=== PATIENT | female | born 1950 | race Caucasian/White ===

== ENCOUNTER 2022-10-18 13:00 | Outpatient (OUT) | payer MEDICARE, SELFPAY ==
--- NOTE | 2022-10-18 13:07 | CT_ITS ---
[address] [address] Patient Name: ALBERTINA LANE MRN: [id number] date: 1950 Sex: F Assigned Patient Location: CT Current Patient Location: Accession/Order Number: [id number] Exam Date: 10/18/2022 13:10 Report Date: 10/19/2022 06:20 At the request of: TORY BARLOW Procedure: CT lung screening low-dose EXAMINATION: CT lung screening low-dose HISTORY: History Of Tobacco Dependence Z87.891 COMPARISON: CT chest 09/23/2021 TECHNIQUE: Axial, Coronal, and Sagittal images were created without the administration of IV contrast material. Dose reduction techniques were achieved by using automated exposure control and/or adjustment of mA and/or kV according to patient size and/or use of iterative reconstruction technique. FINDINGS: LUNGS: Left upper lobe calcified granuloma. Stable 4 mm nodule versus scarring within anterior right costophrenic angle. No infiltrates or significant chronic interstitial changes. PLEURA: No mass, effusion, or pneumothorax. VASCULATURE: No abnormality. JIAN: Calcified left hilar lymph nodes. MEDIASTINUM: No mass or pathologic adenopathy. CARDIAC: No enlargement, pericardial thickening, or significant calcification. AORTA: No aneurysm or dissection. CHEST WALL: No mass or axillary adenopathy BONES: Pectus excavatum. No bone lesion or fracture. LIMITED ABDOMEN: Stable small hepatic cysts versus hemangiomas. No suspicious findings. Limited images of the upper abdomen. OTHER: Negative. CT/CT lung screening low-dose IMPRESSION: 1. Lung-RADS 2- Benign Appearance or Behavior. Nodules with a very low likelihood of becoming a clinically active cancer due to size or lack of growth. Follow-up CT Chest in 1 year. Electronically authenticated by: GUERLINE ANDREWS Date: 10/19/2022 06:20
== END 2022-10-18 13:01 | disposition home or self-care (01) ==
PROVIDERS: PCP Internal Medicine; Visit Provider Internal Medicine
DX: Z87.891 Personal history of nicotine dependence (principal)
CPT/HCPCS: 71271

== ENCOUNTER 2022-12-17 14:36 | Outpatient (OUT) | payer MEDICARE, SELFPAY ==
--- NOTE | 2022-12-17 14:45 | XR_ITS ---
The [address] [address] Patient Name: ALBERTINA LANE MRN: [id number] date: 1950 Sex: F Assigned Patient Location: [facility] Current Patient Location: Accession/Order Number: [id number] Exam Date: 12/17/2022 14:51 Report Date: 12/20/2022 07:42 At the request of: TORY BARLOW Procedure: XR ankle RT min 3V PROCEDURE: XR ankle RT min 3V COMPARISON: None. HISTORY: Sprain Of Ligament Of Right Ankle S93.491A FINDINGS: BONES:No fracture, acute abnormality, or significant arthropathy. SOFT TISSUES: Soft tissue calcifications, nonspecific. No visible soft tissue swelling. EFFUSION:None visible. OTHER: Negative. XR/XR ankle RT min 3V IMPRESSION: No acute abnormality Electronically authenticated by: KEDAR MARY Date: 12/20/2022 07:42
== END 2022-12-17 14:37 | disposition home or self-care (01) ==
LOC: RAD 14:38
PROVIDERS: PCP Internal Medicine; Visit Provider Internal Medicine
DX: S93.491A Sprain of other ligament of right ankle, initial encounter (principal)
CPT/HCPCS: 73610

== ENCOUNTER 2023-03-03 09:32 | Outpatient (OUT) | payer MEDICARE, SELFPAY ==
--- NOTE | 2023-03-03 09:52 | XR_ITS ---
The [address] [address] Patient Name: ALBERTINA LANE MRN: [id number] date: 1950 Sex: F Assigned Patient Location: [facility] Current Patient Location: [facility] Accession/Order Number: [id number] Exam Date: 03/03/2023 09:45 Report Date: 03/03/2023 10:33 At the request of: TORY BARLOW Procedure: XR chest 2V EXAM: XR chest 2V HISTORY: Acute Cough R05.1 COMPARISON: None. TECHNIQUE: PA and lateral views of the chest. FINDINGS: The cardiomediastinal silhouette is enlarged. No focal consolidation is identified. There is no pneumothorax. No pleural effusion is noted. The osseous structures are intact. XR/XR chest 2V IMPRESSION: Cardiomegaly. Electronically authenticated by: DORITA BEAULIEU Date: 03/03/2023 10:33
== END 2023-03-03 09:33 | disposition home or self-care (01) ==
LOC: RAD 09:38
PROVIDERS: PCP Internal Medicine; Visit Provider Internal Medicine
DX: R05.1 Acute cough (principal); I51.7 Cardiomegaly
CPT/HCPCS: 71046

== ENCOUNTER 2023-03-11 07:36 | Outpatient (OUT) | payer MEDICARE, SELFPAY ==
--- NOTE | 2023-03-11 | ECG_ITS ---
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
--- NOTE | 2023-03-11 08:26 | CA_ITS ---
Patient Name: ALBERTINA LANE MR#: [id number] : 1950 Exam Date: 03/11/2023 Ordering Doctor: DR Schuyler Desir D.O. ECHOCARDIOGRAM REPORT PROCEDURE: CA ECHO DOPPLER COMPLETE INDICATIONS: Cardiomegaly, dyspnea on exertion, recent h/o Covid COMPARISON: None. DESCRIPTION: COMPLETE ECHOCARDIOGRAM Real-time transthoracic echocardiography with 2D, M-mode, spectral and color flow Doppler performed. QUALITY: Technical quality was good. 69 , 135#, BSA 1.35 m2 LEFT VENTRICLE: Normal chamber size. Normal systolic function. LV EF: Normal left ventricular ejection fraction, (>55%). DIASTOLIC: Normal diastolic function. ATRIAL SEPTUM: Visually appears intact. LEFT ATRIUM: Normal chamber size. RIGHT ATRIUM: Normal chamber size. RIGHT VENTRICLE: Normal chamber size. Normal right ventricular systolic function. TRICUSPID VALVE: Normal mobility and thickness. No stenosis with trivial regurgitation. No evidence of pulmonary hypertension. RVSP 26 mmHg MITRAL VALVE: Normal mobility and thickness. No evidence of mitral valve stenosis. There is no mitral annular calcification. Mild mitral regurgitation. AORTIC VALVE: Normal trileaflet appearance. No visible sclerosis. Normal leaflet mobility. No evidence of aortic valve stenosis. No aortic regurgitation. AORTIC ROOT: Normal diameter and appearance. PULMONIC VALVE: Normal thickness and mobility. No stenosis. Trivial regurgitation. PERICARDIUM: No evidence of pericardial effusion. IVC: Collapses with inspirations. PLEURA: CONCLUSION: 1. Normal ventricular function. LVEF is 55 to 60%. 2. No significant valvular dysfunction. 3. Normal right-sided pressures. 4. No pericardial effusion. Adult Echocardiography Procedure Report Left Ventricle LVEDD (3.7 - 5.6 cm): 4.50 cm LVESD (2.2 - 4.0 cm): 3.29 cm LVIVS thickness (0.6 - 1.2 cm): 1.29 cm LVPW thickness (0.5 - 1.0 cm): 0.95 cm e': 0.11 m/s E - e': 4.94 LVOT Max Gradient: 3.04 mm[Hg] LVOT Area (cm2): 0.87 m/s Peak Velocity (LVOT): 0.87 m/s Mean Velocity (LVOT): 0.59 m/s LVOT Diameter 2.63 cm Left Atrium LA Volume Index (2D A2C): 22.92 ml/m2 Left Atrium Systolic Dimension: 3.46 cm Mitral Valve MV E to A Ratio: 1.20 Mitral Valve A-Wave Peak Velocity: 0.44 m/s Mitral Valve E-Wave Peak Velocity: 0.53 m/s Right Ventricle Aorta AO Root Diam: 3.42 cm Ascending Ao Diam: 2.86 cm Aortic Valve AoV Area (Peak Juarez): 4.29 cm2, 4.29 cm2 AoV Area (VTI): 4.37 cm2, 4.37 cm2 Peak Velocity(Antegrade Flow): 1.11 m/s Peak Gradient(Antegrade Flow): 4.89 mm[Hg] Mean Velocity(Antegrade Flow): 0.74 m/s Mean Gradient(Antegrade Flow): 2.46 mm[Hg] Velocity Time Integral: 25.98 cm Tricuspid Valve Peak Velocity (Regurgitant Flow): 2.42 m/s Pulmonic Valve Mean Gradient: 1.26 mm[Hg] Mean Velocity: 0.53 m/s Peak Velocity: 0.72 m/s, 0.79 m/s Peak Gradient: 2.06 mm[Hg], 2.49 mm[Hg] Right Atrium Right Atrium Systolic Pressure: 43.80 ml, 43.80 ml Dictated by: Mohan Santacruz M.D. on 03/17/2023 at 19:02 Approved by: Mohan Santacruz M.D. on 03/17/2023 at 19:03
[2023-03-11 08:44] LABS: Hematocrit 39.7 % (36.0-48.0); Hemoglobin 12.9 g/dL (12.0-16.0); Mean Corpuscular HGB Conc 32.5 g/dL (29.9-35.2); Mean Corpuscular Hemoglobin 31.9 pg (26.7-34.0); Mean Platelet Volume 9.4 fL (9.5-13.5); Platelet Count 229 10^3/uL (150-450); Red Blood Count 4.05 10^6/uL (4.20-5.40); Red Cell Distribution Width 13.8 % (11.0-15.0); White Blood Count 24.4 10^3/uL (4.0-11.0)
[2023-03-11 09:13] LABS: Atypical Lymphocytes Abs Man 0.24; Basophils Abs Manual 0.24 10^3/uL (0.00-0.10); Eosinophils Absolute Manual 0.73 10^3/uL (0.00-0.70); Lymphocytes Absolute Manual 16.34 10^3/uL (1.20-3.80); Monocytes Absolute Manual 0.48 10^3/uL (0.30-0.80); Segmented Neut Absolute Manual 6.34 10^3/uL (1.4-6.5)
[2023-03-11 09:46] LABS: Anion Gap 10.4; BUN Creatinine Ratio 15.8; Calcium 9.1 mg/dL (8.5-10.1); Carbon Dioxide 30.9 mmol/L (21.0-32.0); Chloride 101 mmol/L (98-107); Estimated GFR (African America >60 (>=60); Estimated GFR (Non-African Ame >60 (>=60); Glucose 87 mg/dL (74-106); Potassium 4.3 mmol/L (3.5-5.1); Sodium 138 mmol/L (136-145)
== END 2023-03-11 07:37 | disposition home or self-care (01) ==
LOC: CARD 07:36
PROVIDERS: PCP Internal Medicine; Visit Provider Internal Medicine
DX: I51.7 Cardiomegaly (principal); R05.3 Chronic cough; R06.09 Other forms of dyspnea
CPT/HCPCS: 36415; 80048; 83880; 85027; 93005; 93306

== ENCOUNTER 2023-10-24 07:57 | Outpatient (OUT) | payer MEDICARE, SELFPAY ==
--- NOTE | 2023-10-24 | CT_ITS ---
[address] [address] Patient Name: ALBERTINA LANE MRN: [id number] date: 1950 Sex: F Assigned Patient Location: CT Current Patient Location: Accession/Order Number: [id number] Exam Date: 10/24/2023 08:15 Report Date: 10/26/2023 04:32 At the request of: TORY BARLOW Procedure: CT lung screening low-dose EXAMINATION: CT lung screening low-dose HISTORY: Screening COMPARISON: CT lung cancer screening 10/18/2022 TECHNIQUE: Axial, Coronal, and Sagittal images were created without the administration of IV contrast material. Dose reduction techniques were achieved by using automated exposure control and/or adjustment of mA and/or kV according to patient size and/or use of iterative reconstruction technique. FINDINGS: LUNGS: Stable left upper lobe calcified granuloma and a few tiny pleural-based 3-4 mm nodules. No new or suspicious nodules. No infiltrates. PLEURA: No mass, effusion, or pneumothorax. VASCULATURE: No abnormality. JIAN: Calcified left hilar lymph nodes compatible with chronic granulomatous disease. MEDIASTINUM: No mass or pathologic adenopathy. CARDIAC: No enlargement, pericardial thickening, or pericardial effusion. Coronary Artery calcifications: Coronary calcifications are absent. AORTA: No aneurysm or dissection. CHEST WALL: No mass or axillary adenopathy BONES: No bone lesion or fracture. LIMITED ABDOMEN: Stable right hepatic lobe hypodensities favoring cysts or hemangiomas. Limited images of the upper abdomen. OTHER: Negative. CT/CT lung screening low-dose IMPRESSION: 1. Lung-RADS 2- Benign Appearance or Behavior. Nodules with a very low likelihood of becoming a clinically active cancer due to size or lack of growth. Follow-up CT Chest in 1 year. Electronically authenticated by: GUERLINE ANDREWS Date: 10/26/2023 04:32
--- OUTSIDE RECORDS SUMMARY | 2023-10-24 08:03 | XMS_ITS | CCD ---
Author Organization [facility] Care Team Providers Care Cabinetmaker Helper Name Role Phone GHAZOUL, RODOLFO Unavailable Unavailable GHAZOUL, RODOLFO Unavailable Unavailable GHAZOUL, RODOLFO Unavailable Unavailable SELF, SELF Unavailable Unavailable Schuyler Desir Primary Care Provider Schuyler Desir Primary Care Provider Kedar Paredes Unavailable Schuyler Desir DO Primary Care Provider Amy Hernandez Unavailable YEN, DR PAYAN Consulting Unavailable BALL, DR PAYAN Primary Care Unavailable BALL, DR PAYAN Attending Unavailable BALL, DR PAYAN Admitting Unavailable DARRYL, DR GUERLINE Isbell Consulting Unavailable USMAN, DR KEDAR Mojica Consulting Unavailable BALL, DR PAYAN Primary Care Unavailable WEST, DR KEDAR Mojica Attending Unavailable USMAN, DR KEDAR Mojica Admitting Unavailable YEN, DR PAYAN Primary Care Unavailable BALL, DR PAYAN Attending Unavailable BALL, DR PAYAN Admitting Unavailable GRANT, DR DORITA Isbell Attending Unavailable GRANT, DR DORITA Isbell Admitting Unavailable GRANT, DR DORITA Isbell Consulting Unavailable BALL, DR PAYAN Primary Care Unavailable JAYNE, ALFREDO Consulting Unavailable REQUEST, DR NINA LISTED Consulting Unavaila ble BALL, DR PAYAN Primary Care Unavailable REQUEST, DR NINA LISTED Attending Unavaila ble REQUEST, DR NINA LISTED Admitting Unavaila ble PARVEEN, RIVERA Consulting Unavailable BALL, DR PAYAN Primary Care Unavailable PARVEEN, RIVERA Attending Unavailable PARVEEN, RIVERA Admitting Unavailable RIVERA GIBBONS Consulting Unavailable BALL, DR PAYAN Referring Unavailable BALL, DR PAYAN Primary Care Unavailable PARVEEN, RIVERA Attending Unavailable ZAHLROMARIO, RIVERA Admitting Unavailable BALL, DR PAYAN Consulting Unavailable BALL, DR PAYAN Primary Care Unavailable BALL, DR PAYAN Attending Unavailable BALL, DR PAYAN Admitting Unavailable BALL, DR PAYAN Consulting Unavailable BALL, DR PAYAN Primary Care Unavailable BALL, DR PAYAN Attending Unavailable BALL, DR PAYAN Admitting Unavailable DARRYL, DR GUERLINE Isbell Consulting Unavailable BALL, DR PAYAN Consulting Unavailable BALL, DR PAYAN Primary Care Unavailable BALL, DR PAYAN Attending Unavailable BALL, DR PAYAN Admitting Unavailable Ball DO, Schuyler E Primary Care Provider Jake Mireles Unavailable Ball, Schuyler Unavailable Ball, DO Schuyler Primary Care Provider MD Jake Mireles Attending Provider Daija Cain Unavailable Ball, DO Payan Primary Care Provider DONATO Cain Attending Provider Jake Mireles Admitting Unavailable Jake Mireles Attending Unavailable Ball, Schuyler Primary Care Unavailable Payton, Daija Admitting Unavailable PaytonDaija ricci Attending Unavailable Ball, Schuyler Primary Care Unavailable Unavailable Primary Care Provider Unavailabl e BALL, SCHUYLER E Primary Care Unavailable ABHYANKAR, FERNANDO Attending Unavailable BALL, SCHUYLER E Primary Care Unavailable BALL, SCHUYLER E Primary Care Unavailable ABHYANKAR, FERNANDO Referring Unavailable ABHYANKAR, FERNANDO Attending Unavailable ABHYANKAR, FERNANDO Referring Unavailable BALL, SCHUYLER E Primary Care Unavailable DIDION, KYLEE Marie Attending Unavailable BALL, SCHUYLER E Referring Unavailable DIDION, KYLEE Marie Attending Unavailable DIDION, KYLEE Marie Attending Unavailable DIDION, KYLEE Maire Attending Unavailable PETITTI, GUNNER Villareal Attending Unavailable DIDION, KYLEE Marie Attending Unavailable DIDION, KYLEE Marie Attending Unavailable DIDION, KYLEE Marie Attending Unavailable DIDION, KYLEE Marie Attending Unavailable MAG-NOSSEK, MICHOACANO Rader Attending Unavailab le DIDION, KYLEE Marie Referring Unavailable DIDION, KYLEE Marie Attending Unavailable DIDION, KYLEE Marie Attending Unavailable MAG-NOSSEK, MICHOACANO Rader Attending Unavailab le DIDION, KYLEE Marie Attending Unavailable VISCI, JOJO Villareal Attending Unavailable VISCI, JOJO Villareal Referring Unavailable DIDION, KYLEE Marie Attending Unavailable MAG-NOSSEK, MICHOACANO Raedr Attending Unavailab le DIDION, KYLEE Marie Attending Unavailable VISCI, JOJO Villareal Referring Unavailable MAG-NOSSEK, MICHOACANO Rader Attending Unavailab le DIDION, KYLEE Marie Attending Unavailable Allergies Allergy Classification Reported Allergen(s) Allergy Type Date of Onset Reaction(s) Facility (5 sources) Bee Venom Protein (Honey Bee); Translations: [BEE VENOM PROTEIN (HONEY BEE)] Drug Allergy 4 Unknown [facility] (1 source) bee venom Drug allergy (disorder) 4 [facility] (2 sources) patient allergy list reviewed by nurse or physicia Propensity to adverse reactions 4 Comment:Done Synfora Other (16 sources) Bee Sting Drug allergy swelling Synfora Other Medications Current Medications Medication Drug Class(es) Dates Sig (Normalized) Sig (Original) [id number] actuat albuterol 0.09 mg/actuat metered dose inhaler (20 sources) beta2-Adrenergic Agonist Albuterol Sulfate HF A 108 (90 Base) MCG/ACT 2 Inhalation every 4 hrs Active Albuterol Sulfat e HFA 108 (90 Base) MCG/ACT 2 Inhalation every 4 hrs for 30 days Active Albuterol Sulfat e HFA 108 (90 Base) MCG/ACT 2 Inhalation every 4 hrs for 30 days Active ALPRAZolam 0.25 mg oral tablet (20 sources) Benzodiazepine Start: 2023 take 0.25 mg by mouth twice daily Alprazolam Active 0.25 MG PO Twice daily 60 30 2023 8:46am Start: 08-18-2022 End: 2023 take 0.25 mg by mouth once daily Alprazolam Discontinued 0.25 MG PO Daily August 18, 2022 12:00am 2023 8:48am Start: 06-06-2022 take 1 tablet by loly th every eight hours as needed for anxiety ALPRAZolam 0.25 mg TAKE ONE TABLET BY MOUTH EVERY 8 HOURS NEEDED FOR ANXIETY Jan, Active Start: 07-23-2017 take 0.5-1 tablets b y mouth every six hours as needed for anxiety ALPRAZolam 0.25 MG Tab tablet TAKE 1/2 TO 1 TABLET BY MOUTH EVERY 6 HOURS NEEDED FOR ANXIETY AND RESTLESS LEGS 5 07/23/2017 Active take 0.5 tablet by m outh once daily ALPRAZolam (XANAX) 0.25 mg tablet Take 0.25 mg by mouth once daily. Take 1 tab in AM and 1/2 tab in the afternoon 0 Active Xanax Active Comment on above: Take 0.25 mg by mout h once daily. Take 1 tab in AM and 1/2 tab in the afternoon azithromycin 250 mg oral tablet (2 sources) Macrolide Antimicrobial Start: Azithromycin 250 MG as directed Orally daily for 5 days Dec, Active benzonatate 100 mg oral capsule (9 sources) Non-narcotic Antitussive Start: take 1 capsule by mouth every eight hours Benzonatate 100 MG 1 capsule as needed Orally Three times a day for 10 days Feb, Active cholecalciferol 0.025 mg oral capsule (5 sources) Vitamin D Start: take 1 capsule by mouth once daily Cholecalciferol (Vitamin D3) (Vitamin D3) 25 mcg (1,000 unit) Capsule Active 25 MCG PO Daily August 19, 2022 12:00am docusate sodium 50 mg / sennosides, longterm 8.6 mg oral tablet (20 sources) take 1 tablet by mouth every twenty-four hours Senokot S 8.6-50 MG 1 tablet in the evening as needed Orally Once a day Active fexofenadine hydrochloride 60 mg oral tablet (9 sources) Histamine-1 Receptor Antagonist Start: take 1 tablet by mouth once daily Fexofenadine (Shakira Allergy) 60 mg Tablet Active 60 MG PO Daily August 19, 2022 12:00am take 1 tablet by mouth once arsalan y fexofenadine (SHAKIRA) 180 mg tablet Indications: CLL (chronic lymphocytic leukaemia) Take 180 mg by mouth once daily. 0 Active Comment on above: Take 180 mg by mouth once daily. 60 actuat fluticasone propionate 0.25 mg/actuat / salmeterol 0.05 mg/actuat dry powder inhaler (8 sources) Corticosteroid, beta2-Adrenergic Agonist Start: 023 take 1 puff(s) by inhalation twice daily Wixela Inhub 250-50 MCG/ACT 1 puff Inhalation Twice a day for 30 days Feb, Active gabapentin 100 mg oral capsule (3 sources) Anti-epileptic Agent Start: 024 take 100 mg by mouth once daily at bedtime Gabapentin Active 100 MG PO Daily at bedtime June 20, 2023 12:00am hydrocortisone 25 mg/ml topical cream (1 source) Corticosteroid Start: Anusol-HC 2.5 % 1 application Externally Twice a day for 15 days Mar, Active levoFLOXacin 750 mg oral tablet (9 sources) Quinolone Antimicrobial Start: take 1 tablet by mouth every twenty-four hours levoFLOXacin 750 MG 1 tablet Orally Once a day for 7 days Feb, Active Multivitamin (Hair,Nails And Skin Vitamin) Tablet (5 sources) Start: take 1 tablet by mouth once daily Multivitamin (Hair,Nails And Skin Vitamin) Tablet Active 1 TAB PO Daily August 19, 2022 12:00am nadolol 40 mg oral tablet (20 sources) beta-Adrenergic Mae Start: End: take 1 tablet by mouth twice daily Nadolol (Corgard) 40 mg tablet Active 40 MG PO Twice daily 180 90 June 17, 2023 1:09pm Start: 08-18-2022 End: 06-17-2023 take 1 tablet by mouth once daily Nadolol (Corgard) 40 mg Tablet Discontinued 40 MG PO Daily August 19, 2022 12:00am June 17, 2023 9:50am take 2 tablets by mo uth once daily nadolol (CORGARD) 40 mg tablet Take 80 mg by mouth once daily. 0 Active nadolol (Corgard ) 20 MG tablet Take by mouth. 0 Active Nadolol 40 mg TA KE 1 TABLET TWICE A DAY Active Nadolol Active take 1 tablet by loly th once daily nadolol (CORGARD) 80 MG Tab take 80 mg by mouth daily. 0 Active Comment on above: Take 80 mg by mouth once daily. pantoprazole 40 mg delayed release oral tablet (20 sources) Proton Pump Inhibitor Start: 3 End: 4 take 40 mg by mouth once daily Pantoprazole Active 40 MG PO Daily 90 90 October 19, 2023 9:49am Start: 10-25-2018 End: 05-11-[address] (PROTONIX) 2 0 mg tablet Pantoprazole Sod ium Active predniSONE 20 mg oral tablet (11 sources) Start: 02-28-2023 take 1 tablet by mouth twice daily predniSONE 20 MG 1 tablet Orally twice daily w/ food for 5 days Feb, Active Start: 01-12-2023 predniSONE 20 MG 1 tablet Orally twice daily w/ food x 5 days for 5 days Dec, Active Pure Comfort Spacer Chamber - (20 sources) Start: 03-23-2022 Pure Comfort Spacer Chamber - as directed as directed as directed for 30 days Mar, Active sertraline 50 mg oral tablet (2 sources) Serotonin Reuptake Inhibitor Start: 09-05-2023 take 1 tablet by mouth once daily Sertraline (Zoloft) 50 mg tablet Active 50 MG PO Daily September 05, 2023 12:00am terbinafine 250 mg oral tablet (11 sources) Allylamine Antifungal take 1 tablet by mouth every twenty-four hours Terbinafine HCl 250 MG 1 tablet Orally Once a day Active triamcinolone acetonide 1 mg/ml topical cream (20 sources) Corticosteroid Triamcinolone Acetonide 0.1 % 1 application Externally Two times a Week Active Triamcinolone Ac etonide 0.1 % 1 application Externally Two times a Week Active Vitamin E (5 sources) Start: 08-19-2022 take 45 mg by mouth once daily Vitamin E Active 45 MG PO Daily August 19, 2022 12:00am Completed/Discontinued Medications Medication Drug Class(es) Dates Sig (Normalized) Sig (Original) betamethasone 0.5 mg/ml / clotrimazole 10 mg/ml topical cream (20 sources) Azole Antifungal, Corticosteroid Start: 12-27-2021 Clotrimazole-Beta methasone 1-0.05 % 1 application Externally Twice a day for 5 day(s) Dec, Not-Taking/PRN busPIRone hydrochloride 15 mg oral tablet (2 sources) Start: 04-27-2023 busPIRone (BUSPAR) 15 mg tablet TAKE 1 TABLET EVERY DAY FOR THE FIRST WEEK THEN INCREASE TO TWICE A DAY 0 04/27/2023 Active Comment on above: TAKE 1 TABLET EVERY DAY FOR THE FIRST WEEK THEN INCREASE TO TWICE A DAY citalopram 40 mg oral tablet (20 sources) Serotonin Reuptake Inhibitor Start: 08-18-2022 End: 09-05-2023 take 40 mg by mouth once daily Citalopram Discontinued 40 MG PO Daily August 18, 2022 12:00am September 05, 2023 10:09am take 2 tablets by mouth once emily ly citalopram (CELEXA) 20 mg tablet Take 40 mg by mouth once daily. 0 Active citalopram (Alisha XA) 20 MG tablet Take by mouth. 0 Active take 1 tablet by mouth once arsalan y CeleXA 30 mg 1 tablet Orally Once a day Active Citalopram Odin bromide Active take 1 tablet by mouth once arsalan y Citalopram Hydrobromide (CELEXA PO) Celexa; take 1 tablet by oral route every day. 0 Active Comment on above: Take 40 mg by mouth once daily. fluconazole 100 mg oral tablet (3 sources) Azole Antifungal Start : 05-29 End: 05-11 take 1 tablet by mouth once daily fluconazole (DIFLUCAN) 100 mg tablet Take 100 mg by mouth once daily. 0 05/30/2019 05/11/2022 Discontinued (Discontinued by Patient) Comment on above: Take 100 mg by mouth once daily. fluticasone propionate 0.05 mg/actuat metered dose nasal spray (3 sources) Corticosteroid Start : End: 05-11 take 1 spray(s) nasal route once daily fluticasone (FLONASE) 50 mcg/actuation nasal spray SPRAY 1 SPRAY INTO EACH NOSTRIL EVERY DAY 0 05/19/2019 05/11/2022 Discontinued (Discontinued by Patient) Comment on above: SPRAY 1 SPRAY INTO E ACH NOSTRIL EVERY DAY methylPREDNISolone 4 mg oral tablet (20 sources) Corticosteroid Start : 12-27 methylPREDNISolone 4 MG as directed Orally Once a day for 6 days Dec, Not-Taking/PRN nabumetone 500 mg oral tablet (3 sources) Nonsteroidal Anti-inflammatory Drug Start : 04-23 End: 05-11 take 1 tablet by mouth twice daily at mealtime nabumetone (RELAFEN) 500 mg tablet Take 500 mg by mouth twice daily with meals. 0 04/23/2019 05/11/2022 Discontinued (Discontinued by Patient) Comment on above: Take 500 mg by mouth twice daily with meals. omeprazole 40 mg delayed release oral capsule (6 sources) Proton Pump Inhibitor Omeprazole 40 mg capsule Indications: Chronic lymphocytic leukemia (HCC) Take 40 mg by mouth. 0 Active Comment on above: Take 40 mg by mouth. terconazole 8 mg/ml vaginal cream (3 sources) Azole Antifungal Start : 04-27 End: 05-11 terconazole vaginal cream (TERAZOL) 0.8 % vaginal cream USE 1 APPLICATORFUL VAGINALLY AT BEDTIME FOR 3 DAYS 0 04/27/2018 05/11/2022 Discontinued (Discontinued by Patient) Comment on above: USE 1 APPLICATORFUL VAGINALLY AT BEDTIME FOR 3 DAYS valACYclovir 1000 mg oral tablet (3 sources) Herpesvirus Nucleoside Analog DNA Polymerase Inhibitor, Herpes Simplex Virus Nucleoside Analog DNA Polymerase Inhibitor, Herpes Zoster Virus Nucleoside Analog DNA Polymerase Inhibitor Start : 05-24 End: 05-11 take 1 tablet by mouth twice daily valACYclovir (VALTREX) 1 gram tab TAKE 1 TABLET BY MOUTH TWICE A DAY FOR 10 DAYS 0 05/24/2018 05/11/2022 Discontinued (Discontinued by Patient) Comment on above: TAKE 1 TABLET BY LOLY TWICE A DAY FOR 10 DAYS Problems Active Problems Problem Classification Problem Date Documented Da te Episodic/Chronic Acute and chronic tonsillitis (4 sources) Cryptic tonsil; Translations: [Other chronic diseases of tonsils and adenoids] 06-20-2023 Chronic Acute bronchitis (4 sources) Acute bronchitis; Translations: [Acute bronchitis due to other specified organisms] Onset: 5 Episodic Allergic reactions (6 sources) Unspecified contact dermatitis, unspecified cause; Translations: [Allergy to bee venom] Onset: 6 Episodic Anxiety disorders (20 sources) Generalized anxiety disorder; Translations: [Generalized anxiety disorder] Chronic Cardiac dysrhythmias (2 sources) Supraventricular tachycardia; Translations: [Supraventricular tachycardia] Onset: 4 Chronic Cardiac dysrhythmias (20 sources) Intermittent palpitations; Translations: [Palpitations] Episodic Cataract (8 sources) Age-related nuclear cataract, right eye; Translations: [Age-related nuclear cataract, left eye] Onset: 2 Chronic Chronic obstructive pulmonary disease and bronchiectasis (20 sources) Chronic obstructive pulmonary disease with acute lower respiratory infection; Translations: [Chronic obstructive pulmonary disease with (acute) lower respiratory infection] Onset: 6 Chronic Diseases of mouth; excluding dental (20 sources) Other lesions of oral mucosa; Translations: [Hypertrophy of tongue papillae] Onset: 9 Episodic Disorders of teeth and jaw (20 sources) Temporomandibular joint disorder; Translations: [Unspecified temporomandibular joint disorder, unspecified side] Episodic E Codes: Fall (1 source) Fall on same level from slipping, tripping and stumbling with subsequent striking against unspecified object, initial encounter; Translations: [FALL SAME LVL SLIP STRK UNS OBJ INT] Onset: 2 Episodic Esophageal disorders (5 sources) Gastroesophageal reflux disease; Translations: [Gastro-esophageal reflux disease without esophagitis] 09-03-2023 Chronic Esophageal disorders (2 sources) Esophageal disorders; Translations: [Gastro-esophageal reflux disease with esophagitis, without bleeding] Hemorrhoids (20 sources) Hemorrhoids; Translations: [Unspecified hemorrhoids] Onset: 2 Resolved: 2 Episodic Immunizations and screening for infectious disease (5 sources) Encounter for immunization; Translations: [Contact with and (suspected) exposure to other viral communicable diseases] Onset: 1 Resolved: 2 Episodic Intracranial injury (20 sources) Concussion with no loss of consciousness; Translations: [Concussion without loss of consciousness, initial encounter] Episodic Leukemias (20 sources) Chronic lymphoid leukemia, disease; Translations: [Chronic lymphocytic leukemia of B-cell type not having achieved remission] Onset: 5 Chronic Miscellaneous mental health disorders (2 sources) Insomnia disorder related to another mental disorder; Translations: [Insomnia due to mental disorder] Onset: 8 Chronic Mood disorders (20 sources) Mild recurrent major depression; Translations: [Major depressive disorder, recurrent, mild] Onset: 7 Chronic Mycoses (20 sources) Tinea corporis; Translations: [Tinea corporis] Resolved: 2 Episodic Nutritional deficiencies (2 sources) Vitamin D deficiency; Translations: [Vitamin D deficiency, unspecified] Onset: 5 Chronic Other aftercare (1 source) Other long chain beamer (current) drug therapy; Translations: [OTH WELT INSOLE CHANNELER CURRENT DRUG THERAPY] Onset: 2 Episodic Other and ill-defined heart disease (7 sources) Cardiomegaly; Translations: [Cardiomegaly] Chronic Other and ill-defined heart disease (2 sources) Cardiomegaly Chronic Other and unspecified benign neoplasm (20 sources) History of polyp of colon; Translations: [Personal history of colonic polyps] Episodic Other and unspecified benign neoplasm (2 sources) Personal history of colonic polyps Onset: 2 Resolved: 2 Episodic Other and unspecified benign neoplasm (20 sources) Angiomyolipoma of left kidney; Translations: [Benign lipomatous neoplasm of kidney] Episodic Other and unspecified benign neoplasm (2 sources) Lipoma of intra-abdominal organs; Translations: [Benign lipomatous neoplasm of kidney] Episodic Other and unspecified benign neoplasm (1 source) Benign lipomatous neoplasm of kidney; 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] Episodic Other bone disease and musculoskeletal deformities (20 sources) Other specified disorders of bone density and structure, right thigh; Translations: [OTH D/O BONE DEN STRUCT RT THIGH] Onset: 2 Episodic Other bone disease and musculoskeletal deformities (20 sources) Other specified disorders of bone density and structure, left thigh; Translations: [OTH D/O BONE DEN STRUCT LT THIGH] Onset: 2 Episodic Other connective tissue disease (1 source) Pain in right foot Episodic Other ear and sense organ disorders (2 sources) Otitis externa of left ear; Translations: [Unspecified otitis externa, left ear] Onset: 6 Chronic Other gastrointestinal disorders (20 sources) Chronic idiopathic constipation; Translations: [Chronic idiopathic constipation] Chronic Other gastrointestinal disorders (2 sources) Chronic idiopathic constipation Onset: 2 Resolved: 2 Chronic Other gastrointestinal disorders (20 sources) Constipation - functional; Translations: [Other constipation] Episodic Other gastrointestinal disorders (20 sources) Melanosis coli; Translations: [Other specified diseases of intestine] Episodic Other gastrointestinal disorders (1 source) Constipation; Translations: [Constipation, unspecified] 10-19-2023 Episodic Other gastrointestinal disorders (1 source) Constipation, unspecified; Translations: [Constipation, unspecified] 10-19-2023 Episodic Other hereditary and degenerative nervous system conditions (5 sources) Restless legs; Translations: [Restless legs syndrome] 06-20-2023 Chronic Other hereditary and degenerative nervous system conditions (1 source) Restless legs syndrome; Translations: [Restless legs syndrome (RLS)] 06-20-2023 Chronic Other inflammatory condition of skin (20 sources) Intertrigo; Translations: [Erythema intertrigo] Episodic Other inflammatory condition of skin (1 source) Erythema intertrigo; Translations: [Pruritic intertrigo] Episodic Other injuries and conditions due to external causes (3 sources) Unspecified injury of head, initial encounter; Translations: [UNSPECIFIED INJURY HEAD INITIAL ENC] Onset: 2 Episodic Other injuries and conditions due to external causes (2 sources) History of fall; Translations: [History of falling] Episodic Other lower respiratory disease (5 sources) Solitary pulmonary nodule; Translations: [SOLITARY PULMONARY NODULE] Onset: 2 Episodic Other lower respiratory disease (20 sources) Nodule of lung; Translations: [Solitary pulmonary nodule] Episodic Other lower respiratory disease (2 sources) Solitary nodule of lung; Translations: [Solitary pulmonary nodule] Episodic Other lower respiratory disease (2 sources) Other forms of dyspnea Episodic Other nervous system disorders (20 sources) Skin sensation disturbance; Translations: [Paresthesia of skin] Episodic Other nervous system disorders (2 sources) Paresthesia; Translations: [Paresthesia of skin] Episodic Other nervous system disorders (1 source) Paresthesia of skin; Translations: [Paresthesias] Episodic Other screening for suspected conditions (not mental disorders or infectious disease) (20 sources) Screening for malignant neoplasm of lung; Translations: [Encounter for screening for malignant neoplasm of respiratory organs] Episodic Other skin disorders (4 sources) Intrinsic aging of skin; Translations: [Intrinsic aging of facial skin] Onset: 8 08-24-2017 Episodic Other skin disorders (4 sources) Wrinkled skin; Translations: [Rhytides] 12-20-2016 Episodic Other upper respiratory infections (2 sources) Acute pharyngitis; Translations: [Acute pharyngitis due to other specified organisms] Episodic Poisoning by nonmedicinal substances (1 source) Toxic effect of venom of bees, accidental (unintentional), initial encounter Episodic Residual codes; unclassified (20 sources) Normal body mass index; Translations: [Body mass index (BMI) 20.0-20.9, adult] Episodic Spondylosis; intervertebral disc disorders; other back problems (20 sources) Spondylosis without myelopathy or radiculopathy, cervical region; Translations: [Cervical spondylosis] Onset: 7 Chronic Spondylosis; intervertebral disc disorders; other back problems (20 sources) Cervicalgia; Translations: [Muscle spasm of back] Onset: 8 Episodic Sprains and strains (20 sources) Strain of unspecified muscle and tendon at ankle and foot level, right foot, initial encounter; Translations: [Sprain of jaw] Resolved: 2 Episodic Substance-related disorders (20 sources) Tobacco dependence in remission; Translations: [Nicotine dependence, cigarettes, in remission] Onset: 6 Resolved: 0 Chronic Superficial injury; contusion (20 sources) Contusion of unspecified part of head, initial encounter; Translations: [Contusion of lower back and pelvis, initial encounter] Onset: 7 Episodic Unclassified (1 source) Cosmetic / 473() Onset: 7 Unclassified (3 sources) CONTACT W/AND (SUSP) EXPOS COVID-19; Translations: [CONTACT W/AND (SUSP) EXPOS COVID-19] Onset: 1 Unclassified (2 sources) Other specified cough; Translations: [Other specified cough] Onset: 6 Unclassified (1 source) Pain in right foot; Translations: [Pain in right foot] Onset: 3 Unclassified (1 source) Encounter for screening for malignant neoplasm of colon; Translations: [Encounter for screening for malignant neoplasm of colon] Onset: 3 Viral infection (6 sources) COVID-19; Translations: [Disease caused by 2019-nCoV] Onset: 1 Past or Other Problems Problem Classification Problem Date Documented Da te Episodic/Chronic Malaise and fatigue (1 source) Weakness; Translations: [WEAKNESS] Onset: 08-14-2021 Episodic Nonspecific chest pain (6 sources) Chest pain; Translations: [Other chest pain] Onset: 01-24-2015 Episodic Other connective tissue disease (1 source) Abnormal posture; Translations: [ABNORMAL POSTURE] Onset: 08-14-2021 Episodic Other connective tissue disease (2 sources) Enthesopathy of hip region; Translations: [Other bursitis of hip, right hip] Resolved: 06-15-2021 Episodic Other connective tissue disease (2 sources) Trochanteric bursitis of right hip; Translations: [Trochanteric bursitis, right hip] Onset: 04-27-2018 Episodic Other ear and sense organ disorders (2 sources) Otalgia; Translations: [Otalgia, right ear] Onset: 09-09-2015 Episodic Other gastrointestinal disorders (2 sources) Intra-abdominal and pelvic swelling, mass and lump; Translations: [Abdominal or pelvic swelling, mass, or lump, other specified site] Onset: 03-22-2010 Episodic Other gastrointestinal disorders (2 sources) Heartburn; Translations: [Heartburn] Onset: 06-25-2015 Episodic Other lower respiratory disease (2 sources) Cough; Translations: [Cough, unspecified] Onset: 10-04-2014 Episodic Other lower respiratory disease (2 sources) Chronic cough; Translations: [Chronic cough] Onset: 01-26-2016 Episodic Other lower respiratory disease (2 sources) Dyspnea; Translations: [Other forms of dyspnea] Onset: 01-26-2016 Episodic Other non-traumatic joint disorders (2 sources) Hand joint pain; Translations: [Pain in joint, hand] Onset: 01-08-2014 Episodic Other skin disorders (2 sources) Localized swelling, mass and lump, neck; Translations: [Localized swelling, mass and lump, neck] Onset: 09-29-2017 Episodic Otitis media and related conditions (2 sources) Eustachian tube salpingitis; Translations: [Unspecified Eustachian salpingitis, right ear] Onset: 09-09-2015 Episodic Residual codes; unclassified (2 sources) Tobacco user; Translations: [Tobacco use] Onset: 02-03-2016 Episodic Residual codes; unclassified (2 sources) H/O: risk factor; Translations: [Other specified personal history presenting hazards to health] Onset: 01-19-2016 Episodic Screening and history of mental health and substance abuse codes (7 sources) Personal history of nicotine dependence; Translations: [History of tobacco use] Onset: 02-03-2016 Episodic Skin and subcutaneous tissue infections (2 sources) Impetigo; Translations: [Impetigo, unspecified] Resolved: 06-15-2021 Episodic Unclassified (1 source) Cosmetic; Translations: [Cosmetic] Onset: 01-25-2017 Unclassified (1 source) CONTACT W/AND (SUSP) EXPOS COVID-19; Translations: [CONTACT W/AND (SUSP) EXPOS COVID-19] Onset: 02-23-2021 Unclassified (1 source) Post COVID-19 condition, 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 The complete report is available in the patient's medical record. If you cannot access the medical record, please contact the sending organization for a detailed fax or copy. EXAMINATION: BI MAMMOGRAM SCREENING TOMOSYNTHESIS BILATERAL CLINICAL HISTORY:screening COMPARISON: October 16, 2021 RESULT: Density: Scattered fibroglandular density [2] There is no suspicious mass, asymmetry, architectural distortion, or calcification. Typically benign calcifications. Overall appearance stable. IMPRESSION: BIRADS 2 - Benign Follow-up: Routine Screening Mamm Board Certified Radiologists. Accredited by the ACR and FDA. MAMMOGRAPHY IS VERY IMPORTANT TO YOUR HEALTH. THE [place] [employer] GUIDELINES RECOMMEND THAT WOMEN 40 YEARS OF AGE AND OLDER SHOULD HAVE A MAMMOGRAM EVERY YEAR. A REMINDER LETTER WILL BE SENT AT THE APPROPRIATE TIME. THIS FACILITY UTILIZES A REMINDER SYSTEM TO ENSURE ALL PATIENTS RECEIVE REMINDER NOTIFICATIONS AT THE APPROPRIATE TIME BASED ON THE RECOMMENDATIONS OF THIS EXAM. THIS INCLUDES REMINDERS FOR ROUTINE SCREENING MAMMOGRAMS, DIAGNOSTIC MAMMOGRAMS IN WHICH THE PATIENT IS ASKED TO RETURN FOR ADDITIONAL VIEWS, OR OTHER BREAST IMAGING INTERVENTIONS WHEN APPROPRIATE. THE PATIENT WILL BE PLACED IN THE APPROPRIATE REMINDER SYSTEM INCLUDING A REMINDER AT THE APPROPRIATE TIME FOR ANY PENDING ADDITIONAL VIEWS. TRANSCRIBED BY: ELECTRONICALLY SIGNED BY: Sincere Bang MD Normal Not Available DEXA BONE DENSITYon 09-05-19 24 DEXA BONE DENSITY Region BMD Young-Esau lt Age-Matched Total (g/cm2) (%) T-Score (%) Z-Score Mean .624 73 -2.0 101 +0.1 IMPRESSION: Impression: Comparison made with prior examination of November 20, 2019 percentage change is -0.2%The mean BMD and corresponding T-score indicated above indicate Low Bone Mass (Osteopenia) and places the patient at a mild to moderate increased risk for fracture. There may be a future risk of developing osteoporosis. Region BMD Young-Adult Age-Matched Total (g/cm2) (%) T-Score (%) Z-Score L1-L4 1.004 96 -0.4 128 +2.0 Impression: Comparison made with prior examination of November 20, 2019 percentage change is +2.4The mean BMD and corresponding T-score indicated above indicate Normal Bone Mass and places the patient no significant risk for fracture. This information can serve as a baseline with which to compare future studies. Comment: The T-score is the primary focus of the interpretation of a patient?s bone mineral density measurement. The T-score is the number of standard deviations an individual is above or below the mean value for a young female having normal bone mass. The WHO defines osteoporosis based on the T-score value? +1.0 to ?0.9: Normal bone mass -1.0 to -2.5: Osteopenia and thus may be at future risk of fracture -2.6 to ?5: Osteoporosis and ?at significantly increased risk of fracture? TRANSCRIBED BY: ELECTRONICALLY SIGNED BY: Sincere Bang MD Normal Not Available Basophils Auto (Bld) [#/Vol] on 05-09-2023 Basophils (Bld) [#/Vol] 0.00 10*3/uL <0.11 [facility] Basophils/100 WBC Auto (Bld) on 05-09-2023 Basophils/100 WBC (Bld) 0.0 % [facility] Blood manual differential co mment interpretation narrativeon 05-09-2023 Manual differential comment Charan (Bld) [Interp] Manual [facility] CBC W Auto Differential pane l (Bld)on 05-09-2023 Basophils (Bld) [#/Vol] 0.00 10*3/uL Normal <0.11 [facility] Comment on above: Order Comment: Speci men Type: BLOOD SPECIMEN Ordering Facility: [facility] Address: [address] [address] Performed By: #### 5 7021-8 #### [facility] CLIA [id number] [address] [place] [address] [facility] CLIA [id number] [address] [place], [place] [address] [place] Basophils/100 WBC (Bld) 0.0 % Normal [facility] Comment on above: Order Comment: Speci men Type: BLOOD SPECIMEN Ordering Facility: [facility] Address: [address] [place] [address] Performed By: #### 5 7021-8 #### [facility] CLIA [id number] [address] [place] [address] LAB CLIA [id number] [address] [place] [address] [place] Differential cell count method Nom (Bld) Manual Normal [facility] Comment on above: Order Comment: Speci men Type: BLOOD SPECIMEN Ordering Facility: [facility] Address: [address] [place] [address] Performed By: #### 5 7021-8 #### [facility] CLIA [id number] [address] [place] [address] LAB CLIA [id number] [address] [place] [address] [place] Eosinophils (Bld) [#/Vol] 0.25 10*3/uL Normal <0.46 [facility] Comment on above: Order Comment: Speci men Type: BLOOD SPECIMEN Ordering Facility: [facility] Address: [address] [place] [address] Performed By: #### 5 7021-8 #### [facility] CLIA [id number] [address] [place] [address] LAB CLIA [id number] [address] [place] [address] [place] Eosinophils/100 WBC (Bld) 1.0 % Normal [facility] Comment on above: Order Comment: Speci men Type: BLOOD SPECIMEN Ordering Facility: [facility] Address: [address] [place] [address] Performed By: #### 5 7021-8 #### [facility] CLIA [id number] [address] [place] [address] LAB CLIA [id number] [address] [place] [address] [place] Erythrocyte distribution width (RBC) [Ratio] 13.1 % Normal 11.5-15.0 [facility] Comment on above: Order Comment: Speci men Type: BLOOD SPECIMEN Ordering Facility: [facility] Address: [address] [place] [address] Performed By: #### 5 7021-8 #### [facility] CLIA [id number] [address] [place] [address] LAB CLIA [id number] [address] [place] [address] [place] Hematocrit (Bld) [Volume fraction] 42.7 % Normal 36.0-46.0 [facility] Comment on above: Order Comment: Speci men Type: BLOOD SPECIMEN Ordering Facility: [facility] Address: [address] [place] [address] Performed By: #### 5 7021-8 #### [facility] CLIA [id number] [address] [place] [address] LAB CLIA [id number] [address] [place] [address] [place] Hemoglobin (Bld) [Mass/Vol] 14.4 g/dL Normal 11.5-15.5 [facility] Comment on above: Order Comment: Speci men Type: BLOOD SPECIMEN Ordering Facility: [facility] Address: [address] [place] [address] Performed By: #### 5 7021-8 #### [facility] CLIA [id number] [address] [place] [address] LAB CLIA [id number] [address] [place] [address] [place] Lymphocytes (Bld) [#/Vol] 19.20 10*3/uL High 1.00-4.00 [facility] Comment on above: Order Comment: Speci men Type: BLOOD SPECIMEN Ordering Facility: [facility] Address: [address] [place] [address] Performed By: #### 5 7021-8 #### [facility] CLIA [id number] [address] [place] [address] LAB CLIA [id number] [address] [place] [address] [place] Lymphocytes/100 WBC (Bld) 77.0 % Normal [facility] Comment on above: Order Comment: Speci men Type: BLOOD SPECIMEN Ordering Facility: [facility] Address: [address] [place] [address] Performed By: #### 5 7021-8 #### [facility] CLIA [id number] [address] [place] [address] LAB CLIA [id number] [address] [place] [address] [place] MCH (RBC) [Entitic mass] 32.1 pg Normal 26.0-34.0 [facility] Comment on above: Order Comment: Speci men Type: BLOOD SPECIMEN Ordering Facility: [facility] Address: [address] [place] [address] Performed By: #### 5 7021-8 #### [facility] CLIA [id number] [address] [place] [address] LAB CLIA [id number] [address] [place] [address] [place] MCHC (RBC) [Mass/Vol] 33.7 g/dL Normal 30.5-36.0 [facility] Comment on above: Order Comment: Speci men Type: BLOOD SPECIMEN Ordering Facility: [facility] Address: [address] [place] [address] Performed By: #### 5 7021-8 #### [facility] CLIA [id number] [address] [place] [address] LAB CLIA [id number] [address] [place] [address] [place] MCV (RBC) [Entitic vol] 95.3 fL Normal 80.0-100.0 [facility] Comment on above: Order Comment: Speci men Type: BLOOD SPECIMEN Ordering Facility: [facility] Address: [address] [place] [address] Performed By: #### 5 7021-8 #### [facility] CLIA [id number] [address] [place] [address] LAB CLIA [id number] [address] [place] [address] [place] Monocytes (Bld) [#/Vol] 0.50 10*3/uL Normal <0.87 [facility] Comment on above: Order Comment: Speci men Type: BLOOD SPECIMEN Ordering Facility: [facility] Address: [address] [place] [address] Performed By: #### 5 7021-8 #### [facility] CLIA [id number] [address] [place] [address] LAB CLIA [id number] [address] [place] [address] [place] Monocytes/100 WBC (Bld) 2.0 % Normal [facility] Comment on above: Order Comment: Speci men Type: BLOOD SPECIMEN Ordering Facility: [facility] Address: [address] [place] [address] Performed By: #### 5 7021-8 #### [facility] CLIA [id number] [address] [place] [address] LAB CLIA [id number] [address] [place] [address] [place] Neutrophils (Bld) [#/Vol] 4.99 10*3/uL Normal 1.45-7.50 [facility] Comment on above: Order Comment: Speci men Type: BLOOD SPECIMEN Ordering Facility: [facility] Address: [address] [place] [address] Performed By: #### 5 7021-8 #### [facility] CLIA [id number] [address] [place] [address] LAB CLIA [id number] [address] [place] [address] [place] Neutrophils/100 WBC (Bld) 20.0 % Normal [facility] Comment on above: Order Comment: Speci men Type: BLOOD SPECIMEN Ordering Facility: [facility] Address: [address] [place] [address] Performed By: #### 5 7021-8 #### [facility] CLIA [id number] [address] [place] [address] LAB CLIA [id number] [address] [place] [address] [place] Nucleated RBC (Bld) [#/Vol] 10*3/uL Normal <0.01 [facility] Comment on above: Order Comment: Speci men Type: BLOOD SPECIMEN Ordering Facility: [facility] Address: [address] [place] [address] Performed By: #### 5 7021-8 #### [facility] CLIA [id number] [address] [place] [address] LAB CLIA [id number] [address] [place] [address] [place] Nucleated RBC/100 WBC (Bld) [Ratio] 0.0 /100 WBC Normal [facility] Comment on above: Order Comment: Speci men Type: BLOOD SPECIMEN Ordering Facility: [facility] Address: [address] [place] [address] Performed By: #### 5 7021-8 #### [facility] CLIA [id number] [address] LAB CLIA [id number] [address] [place] [address] [place] Ovalocytes LM Ql (Bld) Few Normal [facility] Comment on above: Order Comment: Speci men Type: BLOOD SPECIMEN Ordering Facility: [facility] Address: [address] [place] [address] Performed By: #### 5 7021-8 #### [facility] CLIA [id number] [address] [place] [address] LAB CLIA [id number] [address] [place] [address] [place] Platelet mean volume (Bld) [Entitic vol] 9.9 fL Normal 9.0-12.7 [facility] Comment on above: Order Comment: Speci men Type: BLOOD SPECIMEN Ordering Facility: [facility] Address: [address] [place] [address] Performed By: #### 5 7021-8 #### [facility] CLIA [id number] [address] [place] [address] LAB CLIA [id number] [address] [place] [address] [place] Platelets (Bld) [#/Vol] 228 10*3/uL Normal 150-400 [facility] Comment on above: Order Comment: Speci men Type: BLOOD SPECIMEN Ordering Facility: [facility] Address: [address] [place] [address] Performed By: #### 5 7021-8 #### [facility] CLIA [id number] [address] [place] [address] LAB CLIA [id number] [address] [place] [address] [place] Platelets Estimate (Bld) [#/Vol] Adequate Normal [facility] Comment on above: Order Comment: Speci men Type: BLOOD SPECIMEN Ordering Facility: [facility] Address: [address] [place] [address] Performed By: #### 5 7021-8 #### [facility] CLIA [id number] [address] [place] [address] LAB CLIA [id number] [address] [place] [address] [place] RBC (Bld) [#/Vol] 4.48 10*6/uL Normal 3.90-5.20 [facility] Comment on above: Order Comment: Speci men Type: BLOOD SPECIMEN Ordering Facility: [facility] Address: [address] [place] [address] Performed By: #### 5 7021-8 #### [facility] CLIA [id number] [address] [place] [address] LAB CLIA [id number] [address] [place] [address] [place] RED CELL MORPH Reviewed: see result s of individual morphologies Normal [facility] Comment on above: Order Comment: Speci men Type: BLOOD SPECIMEN Ordering Facility: [facility] Address: [address] [place] [address] Performed By: #### 5 7021-8 #### [facility] CLIA [id number] [address] [place] [address] LAB CLIA [id number] [address] [place] [address] [place] WBC (Bld) [#/Vol] 24.93 10*3/uL High 3.70-11.[address] [facility] Comment on above: Order Comment: Speci men Type: BLOOD SPECIMEN Ordering Facility: [facility] Address: [address] [place] [address] Performed By: #### 5 7021-8 #### [facility] CLIA [id number] [address] [place] [address] LAB CLIA [id number] [id number] [place] [facility] CNOVSPon 05-09-2023 CNOVSP Visit (SP) Office ([place]) ARIANANADEEN Stephen ([id number]) 1950 F Date Time Provider Department 05/09/23 10:00 AM FERNANDO HANNA During your visit today, we recorded the following information about you: Temperature Pulse Respiration Blood pressure 98 degrees 65/minute 16/minute 140/73 Weight Height 61.6 kg 1.753 m Fernando Hanna MD 05/09/2023 6:22 PM Signed NAME: Nadeen Oquendo CLINIC NO.: [id number] DATE OF SERVICE: May 09, 2023 (Jaime) Some elements in this clinic note that are critical to medical decision making have been carefully reviewed and included from a prior clinic note dated: November 08, 2022 (Jaime) Referring Provider: Dr. Schuyler Desir Additional Clinicians involved in Nadeen Oquendo's care: CC: CLL diagnosed 2014. ASSESSMENT: Chronic lymphocytic leukemia (HCC) - ICD9: 204.10, ICD10: C91.90 Her counts remain stable and she is asymptomatic. We will continue to monitor her counts every 6 months and see her in follow up. IGVH Mutated FISH normal - intermediate risk. Getting screening CT's with Dr. Desir for high risk lung cancer. PLAN: Follow up in 6 months. Lab draw same day. Continue following with Dr. Desir - HPI: CASE HISTORY: Reverse Chronological Order 2014 - Diagnosed with CLL Updated Visit, May 09, 2023: Ashley continues to do well but has occasional night sweats approximately once every 2 weeks. Quit smoking 6 years ago. Labs are stable. Getting CT's with Pulmonolgy. Updated Visit, November 08, 2022: Ashley is doing well. No changes with respect of CLL. No B symptoms. Labs stable. Updated Visit, May 10, 2022: Nadeen Oquendo returns for scheduled follow-up. Since her last visit there has been no significant medical changes. She is following with dermatology for rosacea. She denies fevers, chills, night sweats and signs/symptoms of infection. She denies any lumps or bumps. No unintentional weight loss. Overall, she is doing well. She offers no particular complaints today. No new issues, problems or concerns. Updated Visit, November 09, 2021: Ashley continues to do well and has no B symptoms. Labs reviewed and no indicators to treat. Updated Visit, May 11, 2021: Doing well no B symptoms. No lymphadenopathy and no change in labs. Updated Visit, October 29, 2020: Ashley is 70 yo and returns for follow of CLL. Contiunes asymptomatic observation. No B symptoms. Originally seen in 08/2014 for lymphocytosis. Updated Visit, April 30, 2020: Nadeen is 69 years old and returns in follow-up for CLL. She remains asymptomatic and labs are stable. 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 She only gets a little nervous when she comes here. She has no B symptoms. We discussed signs of progression and since she is a former smoker (she quit in 2016 after her passed) I wanted her to be wary of any supraclavicular or low cervical nodes that may pop up. She'll need these evaluated sooner. Updated Visit, October 31, 2019: Nadeen is 69 years old and returns in follow-up for CLL. She remains asymptomatic and labs are stable. She complains that she has had a left sided sore throat for 1 day. She will either call us or her primary care physician if this does not resolve in the next week. 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 Updated Visit, June 29, 2019: Nadeen Oquendo is a 68 year old female who presents in follow up. She denies any fevers, chills, night sweats, weight loss or enlarged lymph nodes. Quit smoking 4 years ago after her , having no problems a little swelling in her left ankle but she remembered breaking the leg a long time ago. Her blood count looks stable today with a WBC of 19.27. She still does not have any treatment indications. - REVIEW OF SYSTEMS Per HPI and otherwise negative by full review of organ systems. - ECOG PERFORMANCE STATUS: 0 PHYSICAL EXAMINATION: Vitals: BP 140/73 Pulse 65 Temp (Src) 98 (Temporal) Resp 16 Ht 5' 9.016 (1.75m) Wt 135 lb 12.9 oz (61.6kg) SpO2 99% BMI 20.05 kg/(m2). Body surface area is 1.73 meters squared. Exam limited to gross visualization where appropriate. Gen.: This is an age-appropriate patient in no acute distress. Head: Appears atraumatic with no visible lesions. Eyes: Pupils equally round and reactive to light, extraocular muscles are intact. Neck: Supple. Respiratory: Appears to be respiring comfortably. Neurologic: Nonfocal to gross visualization. Alert and oriented ?3. Psychiatric: No evidence of inappropria (more content not included)... Normal [facility] Comprehensive metabolic 2000 panelon 05-09-2023 Albumin [Mass/Vol] 4.8 g/dL Normal 3.9-4.9 [facility] Comment on above: Order Comment: Speci men Type: BLOOD SPECIMEN Ordering Facility: [facility] Address: [address] [place] [address] Performed By: #### 3 084-1, 50600-3, 2531-0 #### [facility] CLIA [id number] [address] [place] [address] ALP [Catalytic activity/Vol] 80 U/L Normal 34-123 [facility] [facility] Comment on above: Order Comment: Speci men Type: BLOOD SPECIMEN Ordering Facility: [facility] Address: [address] [place], [place] [address] Performed By: #### 3 084-1, 39485-5, 2531-0 #### [facility] CLIA [id number] [address] [place] [address] ALT [Catalytic activity/Vol] 12 U/L Normal 7-38 [facility] Comment on above: Order Comment: Speci men Type: BLOOD SPECIMEN Ordering Facility: [facility] Address: [address] [place] [address] Performed By: #### 3 084-1, , 2531-0 #### [facility] CLIA [id number] [address] [place] [address] Anion gap [Moles/Vol] 10 mmol/L Normal 9-18 [facility] Comment on above: Order Comment: Speci men Type: BLOOD SPECIMEN Ordering Facility: [facility] Address: [address] [place] [address] Performed By: #### 3 084-1, , 2531-0 #### [facility] CLIA [id number] [address] [place] [address]52 AST [Catalytic activity/Vol] 17 U/L Normal 13-35 [facility] Comment on above: Order Comment: Speci men Type: BLOOD SPECIMEN Ordering Facility: [facility] Address: [address] [place] [address] Performed By: #### 3 084-1, 62564-9, 2-0 #### [facility] CLIA [id number] [facility] [place] [address] Bilirubin [Mass/Vol] 0.4 mg/dL Normal 0.2-1.3 [facility] Comment on above: Order Comment: Speci men Type: BLOOD SPECIMEN Ordering Facility: [facility] Address: [address] [place], [place] [address] Performed By: #### 3 084-1, 76436-9, 2531-0 #### [facility] CLIA [id number] [address] [place] [address] Calcium [Mass/Vol] 9.8 mg/dL Normal 8.5-10.2 [facility] Comment on above: Order Comment: Speci men Type: BLOOD SPECIMEN Ordering Facility: [facility] Address: [address] [place] [address] Performed By: #### 3 084-1, 62138-5, 2531-0 #### [facility] CLIA [id number] [address] [place] [address] Chloride [Moles/Vol] 103 mmol/L Normal 97-105 [facility] Comment on above: Order Comment: Speci men Type: BLOOD SPECIMEN Ordering Facility: [facility] Address: [address] [place] [address] Performed By: #### 3 084-1, 39527-1, 2532-0 #### [facility] CLIA [id number] [address] [place] [address]957 CO2 [Moles/Vol] 25 mmol/L Normal 22-30 [facility] Comment on above: Order Comment: Speci men Type: BLOOD SPECIMEN Ordering Facility: [facility] Address: [address] [place] [address] Performed By: #### 3 084-1, 46590-9, 2532-0 #### [facility] CLIA [id number] [address] [place] [address] Creatinine [Mass/Vol] 0.80 mg/dL Normal 0.58-0.96 [facility] Comment on above: Order Comment: Nanod mike Type: BLOOD SPECIMEN Ordering Facility: [facility] Address: [address] [place] [address] Performed By: #### 3 084-1, 52751-8, 2532-0 #### [facility] CLIA [id number] [address] [place] [address]25 Creatinine and Glomerular filtration rate.predicted panel (S/P/Bld) 77 mL/min/1.73m??? Normal >=60 [facility] Comment on above: Order Comment: Nando mike Type: BLOOD SPECIMEN Ordering Facility: [facility] Address: [address] [place], [place] [address] Result Comment: Juliann mated Glomerular Filtration Rate (eGFR) is calculated using the 2020 CKD-EPI creatinine equation. This equation utilizes serum creatinine, sex, and age as parameters. The creatinine assay has traceable calibration to isotope dilution-mass spectrometry. Refer to KDIGO guidelines for clinical interpretation. In patients with unstable renal function, e.g. those with acute kidney injury, the eGFR may not accurately reflect actual GFR. Performed By: #### 3 084-1, 59489-6, 2532-0 #### [facility] CLIA [id number] [address] [place] [address] Glucose [Mass/Vol] 98 mg/dL Normal 74-99 [facility] Comment on above: Order Comment: Nando mike Type: BLOOD SPECIMEN Ordering Facility: [facility] Address: [address] [id number] Result Comment: The [place] Diabetes [employer] (ADA) provides guidance for cutoff values for fasting glucose and random glucose. The ADA defines fasting as no caloric intake for at least 8 hours. Fasting plasma glucose results between 100 to 125 mg/dL indicate increased risk for diabetes (prediabetes). Fasting plasma glucose results greater than or equal to 126 mg/dL meet the criteria for diagnosis of diabetes. In the absence of unequivocal hyperglycemia, results should be confirmed by repeat testing. In a patient with classic symptoms of hyperglycemia or hyperglycemic crisis, random plasma glucose results greater than or equal to 200 mg/dL meet the criteria for diagnosis of diabetes. Reference: Standards of Medical Care in Diabetes 2016, [place] [employer]. Diabetes Care. 2016.39(Suppl 1). Performed By: #### 3 084-1, 25600-9, 2531-0 #### [facility] CLIA [id number] [address] [place] [address] Potassium [Moles/Vol] 5.0 mmol/L Normal 3.7-5.1 [facility] Comment on above: Order Comment: Speci men Type: BLOOD SPECIMEN Ordering Facility: [facility] Address: [address] [place] [address] Performed By: #### 3 084-1, 11871-4, 2531-0 #### [facility] CLIA [id number] [address] [place] [address] 80087 Protein [Mass/Vol] 6.7 g/dL Normal 6.3-8.0 [facility] Comment on above: Order Comment: Speci men Type: BLOOD SPECIMEN Ordering Facility: [facility] Address: [address] [place] [address] Performed By: #### 3 084-1, , 2531-0 #### [facility] CLIA [id number] [address] [place] [address] 67890 Sodium [Moles/Vol] 138 mmol/L Normal 136-144 [facility] Comment on above: Order Comment: Speci men Type: BLOOD SPECIMEN Ordering Facility: [facility] Address: [address] [place] [address] Performed By: #### 3 084-1, , 2531-0 #### [facility] CLIA [id number] [address] [place] [address]18 Urea nitrogen [Mass/Vol] 13 mg/dL Normal 7-21 [facility] Comment on above: Order Comment: Speci men Type: BLOOD SPECIMEN Ordering Facility: [facility] Address: [address] [place] [address] Performed By: #### 3 084-1, 09603-7, 2531-0 #### [facility] CLIA [id number] [address] [place] [address] Eosinophils/100 WBC Auto (Bl d)on 05-09-2023 Eosinophils/100 WBC (Bld) 1.0 % [facility] Erythrocyte distribution wid th Auto (RBC) [Ratio]on 05-09-2023 Erythrocyte distribution width (RBC) [Ratio] 13.1 % 11.5-15.0 [facility] Hematocrit Auto (Bld) [Volum e fraction]on 05-09-2023 Hematocrit (Bld) [Volume fraction] 42.7 % 36.0-46.0 [facility] Hemoglobin [Mass/volume] in Bloodon 05-09-2023 Hemoglobin (Bld) [Mass/Vol] 14.4 g/dL 11.5-15.5 [facility] LDH SerPl-cCncon 05-09-2023 LDH [Catalytic activity/Vol] 180 U/L Normal 135-214 [facility] Comment on above: Order Comment: Speci men Type: BLOOD SPECIMEN Ordering Facility: [facility] Address: [address] [place] [address] Result Comment: Hemo lysis present. The origin of the hemolysis, in vitro versus an in vivo hemolytic process, cannot be distinguished via this assay alone. In vitro hemolysis may lead to non-physiological (spurious) elevation in lactate dehydrogenase (LDH) results. The result should be interpreted in context of the clinical setting and other test results. Suggest reorder as clinically indicated. Performed By: #### 3 084-1, 54153-4, 2532-0 #### [facility] CLIA [id number] [address] [place] [address] Laboratory - Chemistry and C hemistry - challengeon 05-09-2023 Albumin [Mass/Vol] 4.8 g/dL 3.9-4.9 [facility] ALP [Catalytic activity/Vol] 80 U/L 34-123 [facility] ALT [Catalytic activity/Vol] 12 U/L 7-38 [facility] AST [Catalytic activity/Vol] 17 U/L 13-35 [facility] Bilirubin [Mass/Vol] 0.4 mg/dL 0.2-1.3 [facility] Calcium [Mass/Vol] 9.8 mg/dL 8.5-10.2 [facility] Chloride [Moles/Vol] 103 mmol/L 97-105 [facility] CO2 [Moles/Vol] 25 mmol/L 22-30 [facility] Creatinine [Mass/Vol] 0.80 mg/dL 0.58-0.96 [facility] Glucose [Mass/Vol] 98 mg/dL 74-99 [facility] Comment on above: The [place] Diab[employer] s Association (ADA) provides guidance for cutoff values for fasting glucose and random glucose. The ADA defines fasting as no caloric intake for at least 8 hours. Fasting plasma glucose results between 100 to 125 mg/dL indicate increased risk for diabetes (prediabetes).Fasting plasma glucose results greater than or equal to 126 mg/dL meet the criteria for diagnosis of diabetes. In the absence of unequivocal hyperglycemia, results should be confirmed by repeat testing. In a patient with classic symptoms of hyperglycemia or hyperglycemic crisis, random plasma glucose results greater than or equal to 200 mg/dL meet the criteria for diagnosis of diabetes.Reference: Standards of Medical Care in Diabetes 2016, [place] [employer]. Diabetes Care. 2016.39(Suppl 1). LDH [Catalytic activity/Vol] 180 U/L 135-214 [facility] Comment on above: Hemolysis present. T he origin of the hemolysis, in vitro versus an in vivo hemolytic process, cannot be distinguished via this assay alone. In vitro hemolysis may lead to non-physiological (spurious) elevation in lactate dehydrogenase (LDH) results. The result should be interpreted in context of the clinical setting and other test results. Suggest reorder as clinically indicated. Potassium [Moles/Vol] 5.0 mmol/L 3.7-5.1 [facility] Protein [Mass/Vol] 6.7 g/dL 6.3-8.0 [facility] Sodium [Moles/Vol] 138 mmol/L 136-144 [facility] Urate [Mass/Vol] 4.7 mg/dL 2.5-6.6 [facility] Urea nitrogen [Mass/Vol] 13 mg/dL 7-21 [facility] Laboratory - Hematology and Cell countson 05-09-2023 Eosinophils (Bld) [#/Vol] 0.25 10*3/uL <0.46 [facility] Leukocytes [#/volume] correc dudley for nucleated erythrocytes in Blood by Automated counon 05-09-2023 WBC corrected for nucl RBC Auto (Bld) [#/Vol] 24.93 k/uL 3.70-11.00 [facility] Lymphocytes Auto (Bld) [#/Vo l]on 05-09-2023 Lymphocytes (Bld) [#/Vol] 19.20 10*3/uL 1.00-4.00 [facility] Lymphocytes/100 WBC Auto (Bl d)on 05-09-2023 Lymphocytes/100 WBC (Bld) 77.0 % [facility] MCH Auto (RBC) [Entitic mass ]on 05-09-2023 MCH (RBC) [Entitic mass] 32.1 pg 26.0-34.0 [facility] MCHC Auto (RBC) [Mass/Vol]on 05-09-2023 MCHC (RBC) [Mass/Vol] 33.7 g/dL 30.5-36.0 [facility] MCV Auto (RBC) [Entitic vol] on 05-09-2023 MCV (RBC) [Entitic vol] 95.3 fL 80.0-100.0 [facility] Monocytes Auto (Bld) [#/Vol] on 05-09-2023 Monocytes (Bld) [#/Vol] 0.50 10*3/uL <0.87 [facility] Monocytes/100 WBC Auto (Bld) on 05-09-2023 Monocytes/100 WBC (Bld) 2.0 % [facility] Neutrophils Auto (Bld) [#/Vo l]on 05-09-2023 Neutrophils (Bld) [#/Vol] 4.99 10*3/uL 1.45-7.50 [facility] Neutrophils/100 WBC Auto (Bl d)on 05-09-2023 Neutrophils/100 WBC (Bld) 20.0 % [facility] No Panel Informationon 05-09 Estimated GFR (CKD-EPI) 77 mL/min/1.73m??? >=60 [facility] Comment on above: Estimated Glomerular Filtration Rate (eGFR) is calculated using the 2020 CKD-EPI creatinine equation. This equation utilizes serum creatinine, sex, and age as parameters. The creatinine assay has traceable calibration to isotope dilution-mass spectrometry. Refer to KDIGO guidelines for clinical interpretation. In patients with unstable renal function, e.g. those with acute kidney injury, the eGFR may not accurately reflect actual GFR. Normal RBC Morphology Reviewed: see results of individual morphologies [facility] Nucleated RBC Auto (Bld) [#/ Vol]on 05-09-2023 Nucleated RBC (Bld) [#/Vol] 10*3/uL <0.01 [facility] Nucleated erythrocytes [Pres ence] in Blood by Automated counton 05-09-2023 Nucleated RBC Auto Ql (Bld) 0.0 /100{WBC} [facility] Ovalocyte detectionon 2023 Ovalocytes LM Ql (Bld) Few [facility] Platelet adequacy [Presence] in Blood by Light microscopyon 05-09-2023 Platelets LM Ql (Bld) Adequate [facility] Platelet mean volume Auto (B ld) [Entitic vol]on 05-09-2023 Platelet mean volume (Bld) [Entitic vol] 9.9 fL 9.0-12.7 [facility] Platelets Auto (Bld) [#/Vol] on 05-09-2023 Platelets (Bld) [#/Vol] 228 10*3/uL 150-400 [facility] RBC Auto (Bld) [#/Vol]on RBC (Bld) [#/Vol] 4.48 10*6/uL 3.90-5.20 [facility] Serum or plasma anion gap de terminationon 05-09-2023 Anion gap [Moles/Vol] 10 mmol/L 9-18 [facility] Urate SerPl-mCncon 4 Urate [Mass/Vol] 4.7 mg/dL Normal 2.5-6.6 [facility] Comment on above: Order Comment: Speci men Type: BLOOD SPECIMEN Ordering Facility: [facility] Address: [address] [place] [address] Performed By: #### 3 084-1, 30365-3, 2532-0 #### [facility] CLIA [id number] [address] [place] [address] XR foot RT min 3V*on 023 XR foot RT min 3V* [facility] [address] [place] [address] XRay Report Signed Patient: Nadeen Oquendo MR#: [id number] : 1950 Acct:[id number] Age/Sex: 72 / F ADM Date: 12/04/22 Loc: XDUCLY Room: Type: [facility] Attending Dr: Daija SEWELL Copies to: DONATO Ward Ordering Provider: DONATO Ward Date of Service: 12/04/22 XR/XR foot RT min 3V*: RIGHT FOOT PAIN XR foot RT min 3V* 12/04/2022 12:32 PM SIGNS AND SYMPTOMS: Pain over the dorsal aspect of the right foot. The metatarsals PROTOCOL: Frontal, lateral, and oblique radiographs of the right foot COMPARISON: None FINDINGS: The bones are in anatomic alignment. The joint spaces are preserved. There is no evidence of fracture or dislocation. XR/XR foot RT min 3V* IMPRESSION: No fracture or dislocation. No significant soft tissue swelling. Impression dictated by: Dorita Garcia M.D.12/04/2022 12:47 PM Dictation Location: [place] [address] Transcribed By: [facility] 12/04/22 1247 Dictated By: Dorita Garcia II, MD 12/04/22 1244 Signed By: 12/04/22 1247 Normal [facility] XR foot RT min 3V* [facility] Other XR foot RT min 3V* [facility] Other XR foot RT min 3V* [address] [facility] VIOS[facility] Other XR foot RT min 3V* [place] [address] [facility] Other XR foot RT min 3V* XRay Report [facility] Other XR foot RT min 3V* Signed [facility] Other XR foot RT min 3V* Patient: Nadeen Oquendo MR#: [id number] [facility] Other XR foot RT min 3V* [address] [facility] Other XR foot RT min 3V* : 1950 Acct:[id number] [facility] Other XR foot RT min 3V* Age/Sex: 72 / F ADM Date: 12/04/22 [facility] Other XR foot RT min 3V* Loc: XDUC Room: pe: [facility] [employer] Other XR foot RT min 3V* Attending Dr: Daija SEWELL [facility] Other XR foot RT min 3V* Copies to: DONATO Ward [facility] Other XR foot RT min 3V* Ordering Provider: DONATO Ward [facility] Other XR foot RT min 3V* Date of Service: 12/04/22 [facility] Other XR foot RT min 3V* XR/XR foot RT min 3V*: RIGHT FOOT PAIN [facility] Other XR foot RT min 3V* XR foot RT min 3V* 12/04/2022 12:32 PM [facility] Other XR foot RT min 3V* SIGNS AND SYMPTOMS: Pain over the dorsal aspect of the right foot. The metatarsals [facility] Other XR foot RT min 3V* PROTOCOL: Frontal, lateral, and oblique radiographs of the right foot [facility] Other XR foot RT min 3V* COMPARISON: None [facility] Other XR foot RT min 3V* FINDINGS: [facility] Other XR foot RT min 3V* The bones are in anatomic alignment. The joint spaces are preserved. There is no evidence of [facility] Other XR foot RT min 3V* fracture or dislocation. [facility] Other XR foot RT min 3V* XR/XR foot RT min 3V* [facility] Other XR foot RT min 3V* IMPRESSION: [facility] Other XR foot RT min 3V* No fracture or dislocation. [facility] Other XR foot RT min 3V* No significant soft tissue swelling. [facility] Other XR foot RT min 3V* Impression dictated by: Dorita Garcia M.D.12/04/2022 12:47 PM [facility] Other XR foot RT min 3V* Dictation Location: [place] [address] [facility] Other XR foot RT min 3V* Transcribed By: [facility] 12/04/22 1247 [facility] Other XR foot RT min 3V* Dictated By: Dorita Garcia II, MD 12/04/22 [facility] Other XR foot RT min 3V* Signed By: [employer] Other XR foot RT min 3V* 12/04/22 [facility] Dónde Other CBC W Auto Differential pane l (Bld)on 11-08-2022 Basophils (Bld) [#/Vol] 0.00 10*3/uL Normal <0.11 [facility] Comment on above: Order Comment: Speci men Type: BLOOD SPECIMEN Ordering Facility: [facility] Address: [address] Performed By: #### 5 7021-8 #### [facility] CLIA [id number] [address] [place] [address] LAB CLIA [id number] [address] [place] [address] [place] Basophils/100 WBC (Bld) 0.0 % Normal [facility] Comment on above: Order Comment: Speci men Type: BLOOD SPECIMEN Ordering Facility: [facility] Address: [address] [place] [address] Performed By: #### 5 7021-8 #### [facility] CLIA [id number] [address] [place] [address] LAB CLIA [id number] [address] [place] [address] [place] Differential cell count method Nom (Bld) Manual Normal [facility] Comment on above: Order Comment: Speci men Type: BLOOD SPECIMEN Ordering Facility: [facility] Address: [address] Performed By: #### 5 7021-8 #### [facility] CLIA [id number] [address] [place] [address] LAB CLIA [id number] [address] [place] [address] [place] Eosinophils (Bld) [#/Vol] 0.00 10*3/uL Normal <0.46 [facility] Comment on above: Order Comment: Speci men Type: BLOOD SPECIMEN Ordering Facility: [facility] Address: [address] [place] [address] Performed By: #### 5 7021-8 #### [facility] CLIA [id number] [address] [place] [address] LAB CLIA [id number] [address] [place] [address] [place] Eosinophils/100 WBC (Bld) 0.0 % Normal [facility] Comment on above: Order Comment: Speci men Type: BLOOD SPECIMEN Ordering Facility: [facility] Address: [address] [place], [place] [address] Performed By: #### 5 7021-8 #### [facility] CLIA [id number] [address] [place] [address] LAB CLIA [id number] [address] [place] [address] [place] Erythrocyte distribution width (RBC) [Ratio] 13.0 % Normal 11.5-15.0 [facility] Comment on above: Order Comment: Speci men Type: BLOOD SPECIMEN Ordering Facility: [facility] Address: [address] [place] [address] Performed By: #### 5 7021-8 #### [facility] CLIA [id number] [address] [place] [address] LAB CLIA [id number] [address] [place] [address] [place] Hematocrit (Bld) [Volume fraction] 41.2 % Normal 36.0-46.0 [facility] Comment on above: Order Comment: Speci men Type: BLOOD SPECIMEN Ordering Facility: [facility] Address: [address] [place], [place] [address] Performed By: #### 5 7021-8 #### [facility] CLIA [id number] [address] [place] [address] LAB CLIA [id number] [address] [place] [address] [place] Hemoglobin (Bld) [Mass/Vol] 13.7 g/dL Normal 11.5-15.5 [facility] Comment on above: Order Comment: Speci men Type: BLOOD SPECIMEN Ordering Facility: [facility] Address: [address] [place], [place] [address] Performed By: #### 5 7021-8 #### [facility] CLIA [id number] [address] [place] [address] LAB CLIA [id number] [address] [place] [address] [place] Lymphocytes (Bld) [#/Vol] 18.39 10*3/uL High 1.00-4.00 [facility] Comment on above: Order Comment: Speci men Type: BLOOD SPECIMEN Ordering Facility: [facility] Address: [address] [place] [address] Performed By: #### 5 7021-8 #### [facility] CLIA [id number] [address] [place] [address] LAB CLIA [id number] [address] [place] [address] [place] Lymphocytes/100 WBC (Bld) 81.0 % Normal [facility] Comment on above: Order Comment: Speci men Type: BLOOD SPECIMEN Ordering Facility: [facility] Address: [address] Performed By: #### 5 7021-8 #### [facility] CLIA [id number] [address] [place] [address] LAB CLIA [id number] [address] [place] [address] [place] MCH (RBC) [Entitic mass] 31.5 pg Normal 26.0-34.0 [facility] Comment on above: Order Comment: Speci men Type: BLOOD SPECIMEN Ordering Facility: [facility] Address: [address] [place] [id number] Performed By: #### 5 7021-8 #### [facility] CLIA [id number] [address] [place] [address] LAB CLIA [id number] [address] [place] [address] [place] MCHC (RBC) [Mass/Vol] 33.3 g/dL Normal 30.5-36.0 [facility] Comment on above: Order Comment: Speci men Type: BLOOD SPECIMEN Ordering Facility: [facility] Address: [address] [place], [place] [address] Performed By: #### 5 7021-8 #### [facility] CLIA [id number] [address] [place] [address] LAB CLIA [id number] [facility] [place] [address] [place] MCV (RBC) [Entitic vol] 94.7 fL Normal 80.0-100.0 [facility] Comment on above: Order Comment: Speci men Type: BLOOD SPECIMEN Ordering Facility: [facility] Address: [address] [place], [place] [address] Performed By: #### 5 7021-8 #### [facility] CLIA [id number] [address] [place] [address] LAB CLIA [id number] [address] [place] [address] [place] Monocytes (Bld) [#/Vol] 0.23 10*3/uL Normal <0.87 [facility] Comment on above: Order Comment: Speci men Type: BLOOD SPECIMEN Ordering Facility: [facility] Address: [address] [place], [place] [address] Performed By: #### 5 7021-8 #### [facility] CLIA [id number] [address] [place] [address] LAB CLIA [id number] [facility] [place] [address] [place] Monocytes/100 WBC (Bld) 1.0 % Normal [facility] Comment on above: Order Comment: Speci men Type: BLOOD SPECIMEN Ordering Facility: [facility] Address: [address] [place] [address] Performed By: #### 5 7021-8 #### [facility] CLIA [id number] [address] [place] [address] LAB CLIA [id number] [address] [place] [address] [place] Neutrophils (Bld) [#/Vol] 4.09 10*3/uL Normal 1.45-7.50 [facility] Comment on above: Order Comment: Speci men Type: BLOOD SPECIMEN Ordering Facility: [facility] Address: [address] [place] [address] Performed By: #### 5 7021-8 #### [facility] CLIA [id number] [address] [place] [address] LAB CLIA [id number] [address] [place] [address] [place] Neutrophils/100 WBC (Bld) 18.0 % Normal [facility] Comment on above: Order Comment: Speci men Type: BLOOD SPECIMEN Ordering Facility: [facility] Address: [address] [place], [place] [address] Performed By: #### 5 7021-8 #### [facility] CLIA [id number] [address] [place] [address] LAB CLIA [id number] [address] [place] [address] [place] Nucleated RBC (Bld) [#/Vol] 10*3/uL Normal <0.01 [facility] Comment on above: Order Comment: Speci men Type: BLOOD SPECIMEN Ordering Facility: [facility] Address: [address] [place], [place] [address] Performed By: #### 5 7021-8 #### [facility] CLIA [id number] [address] [place] [address] LAB CLIA [id number] [address] [place] [address] [place] Nucleated RBC/100 WBC (Bld) [Ratio] 0.0 /100 WBC Normal [facility] Comment on above: Order Comment: Speci men Type: BLOOD SPECIMEN Ordering Facility: [facility] Address: [address] [place] [address] Performed By: #### 5 7021-8 #### [facility] CLIA [id number] [address] [place] [address] LAB CLIA [id number] [address] [place] [address] [place] Ovalocytes LM Ql (Bld) Few Normal [facility] Comment on above: Order Comment: Speci men Type: BLOOD SPECIMEN Ordering Facility: [facility] Address: [address] [place] [address] Performed By: #### 5 7021-8 #### [facility] CLIA [id number] [address] [place] [address] LAB CLIA [id number] [address] [place] [address] [place] Platelet mean volume (Bld) [Entitic vol] 9.8 fL Normal 9.0-12.7 [facility] Comment on above: Order Comment: Speci men Type: BLOOD SPECIMEN Ordering Facility: [facility] Address: [address] [place] [address] Performed By: #### 5 7021-8 #### [facility] CLIA [id number] [address] [place] [address] LAB CLIA [id number] [address] [place] [address] [place] Platelets (Bld) [#/Vol] 215 10*3/uL Normal 150-400 [facility] Comment on above: Order Comment: Speci men Type: BLOOD SPECIMEN Ordering Facility: [facility] Address: [address] [place] [address] Performed By: #### 5 7021-8 #### [facility] CLIA [id number] [address] [place] [address] LAB CLIA [id number] [address] [place] [address] [place] Platelets Estimate (Bld) [#/Vol] Adequate Normal [facility] Comment on above: Order Comment: Speci men Type: BLOOD SPECIMEN Ordering Facility: [facility] Address: [address] [place] [address] Performed By: #### 5 7021-8 #### [facility] CLIA [id number] [address] [place] [address] LAB CLIA [id number] [address] [place] [address] [place] RBC (Bld) [#/Vol] 4.35 10*6/uL Normal 3.90-5.20 [facility] Comment on above: Order Comment: Speci men Type: BLOOD SPECIMEN Ordering Facility: [facility] Address: [address] [place] [address] Performed By: #### 5 7021-8 #### [facility] CLIA [id number] [address] [place] [address] LAB CLIA [id number] [address] [place] [address] [place] RED CELL MORPH Reviewed: see result s of individual morphologies Normal [facility] Comment on above: Order Comment: Speci men Type: BLOOD SPECIMEN Ordering Facility: [facility] Address: [address] [place], [place] [address] Performed By: #### 5 7021-8 #### [facility] CLIA [id number] [address] [place] [address] LAB CLIA [id number] [address] [place] [address] [place] WBC (Bld) [#/Vol] 22.70 10*3/uL High 3.70-11.[address] [facility] Comment on above: Order Comment: Speci men Type: BLOOD SPECIMEN Ordering Facility: [facility] Address: [address] [place] [address] Performed By: #### 5 7021-8 #### [facility] CLIA [id number] [address] [place] [address] [facility] CLIA [id number] [address] [facility] [id number] [place] [address] [facility] CNOVSPon 11-08-2022 CNOVSP Visit (SP) Office (HEMASA) NADEEN OQUENDO ([id number]) 1950 F Date Time Provider Department 11/08/22 9:45 AM FERNANDO HANNA HEMASA During your visit today, we recorded the following information about you: Temperature Pulse Respiration Blood pressure 97.4 degrees 65/minute 16/minute 118/54 Weight Height 62.8 kg 1.753 m Fernando Hanna MD 11/08/2022 12:52 PM Signed NAME: Erik Oquendoyn CLINIC NO.: [id number] DATE OF SERVICE: November 08, 2022 (Jaime) Some elements in this clinic note that are critical to medical decision making have been carefully reviewed and included from a prior clinic note dated: May 11, 2022 (Douglas) AND November 09, 2021 (Jaime) Referring Provider: Dr. Schuyler Desir Additional Clinicians involved in Nadeenceline Oquendo's care: CC: CLL diagnosed 2014. ASSESSMENT: Chronic lymphocytic leukemia (HCC) - ICD9: 204.10, ICD10: C91.90 Her counts remain stable and she is asymptomatic. We will continue to monitor her counts every 6 months and see her in follow up. IGVH Mutated FISH normal - intermediate risk. PLAN: Follow up in 6 months. Lab draw same day. HPI: Nadeen Oquendo returns for scheduled follow-up. Since her last visit there has been no significant medical changes. She is following with dermatology for rosacea. She denies fevers, chills, night sweats and signs/symptoms of infection. She denies any lumps or bumps. No unintentional weight loss. Overall, she is doing well. She offers no particular complaints today. No new issues, problems or concerns. Updated Visit, November 08, 2022: Ashley is doing well. No changes with respect of CLL. No B symptoms. Labs stable. Updated Visit, November 09, 2021: Ashley continues to do well and has no B symptoms. Labs reviewed and no indicators to treat. Updated Visit, May 11, 2021: Doing well no B symptoms. No lymphadenopathy and no change in labs. Updated Visit, October 29, 2020: Ashley is 70 yo and returns for follow of CLL. Contiunes asymptomatic observation. No B symptoms. Originally seen in 08/2014 for lymphocytosis. Updated Visit, April 30, 2020: Nadeen is 69 years old and returns in follow-up for CLL. She remains asymptomatic and labs are stable. 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 She only gets a little nervous when she comes here. She has no B symptoms. We discussed signs of progression and since she is a former smoker (she quit in 2016 after her passed) I wanted her to be wary of any supraclavicular or low cervical nodes that may pop up. She'll need these evaluated sooner. Updated Visit, October 31, 2019: Nadeen is 69 years old and returns in follow-up for CLL. She remains asymptomatic and labs are stable. She complains that she has had a left sided sore throat for 1 day. She will either call us or her primary care physician if this does not resolve in the next week. 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 Updated Visit, June 29, 2019: Nadeen Oquendo is a 68 year old female who presents in follow up. She denies any fevers, chills, night sweats, weight loss or enlarged lymph nodes. Quit smoking 4 years ago after her , having no problems a little swelling in her left ankle but she remembered breaking the leg a long time ago. Her blood count looks stable today with a WBC of 19.27. She still does not have any treatment indications. REVIEW OF SYSTEMS Per HPI and otherwise negative by full review of organ systems. ECOG PERFORMANCE STATUS: 0 PHYSICAL EXAMINATION: Vitals: BP 118/54 Pulse 65 Temp (Src) 97.4 (Temporal) Resp 16 Ht 5' 9.016 (1.75m) Wt 138 lb 6.4 oz (62.8kg) SpO2 100% BMI 20.43 kg/(m2). Body surface area is 1.75 meters squared. Exam limited to gross visualization where appropriate. Gen.: This is an age-appropriate patient in no acute distress. Head: Appears atraumatic with no visible lesions. Eyes: Pupils equally round and reactive to light, extraocular muscles are intact. Neck: Supple. Respiratory: Appears to be respiring comfortably. Neurologic: Nonfocal to gross visualization. Alert and oriented ?3. Psychiatric: No evidence of inappropriate anxiety or depression. Skin: Visible areas of skin without rash, lesions, wounds or petechiae. ALLERGIES: ALLERGIES Allergen Reactions Bee Venom Protein (* Unknown MEDICATIONS: Omeprazole 40 mg capsule Take 40 mg by mouth. fexofenadine (SHAKIRA) 180 mg tablet Take 180 mg by mouth once daily. nadolol (CORGARD) 40 mg tablet Take 80 mg by mouth once daily. ALPRAZolam (XANAX) 0.25 mg tablet Take 0.25 mg by mouth once daily. Take 1 tab in AM and 1/2 tab in the afternoon citalopram (CELEXA) 20 mg tablet Take 40 mg by mouth once daily. LABORATORY VALUES: WBC (k/uL) Date Value 11/08/2022 22.70 (H) RBC (m/uL) Date Value 11/09/19 (more content not included)... Normal [facility] Comprehensive metabolic 2000 panelon 11-08-2022 Albumin [Mass/Vol] 4.8 g/dL Normal 3.9-4.9 [facility] Comment on above: Order Comment: Speci men Type: BLOOD SPECIMEN Ordering Facility: [facility] Address: [address] [place], [place] [address] [address] Performed By: #### 2 532-0, 07117-0, 3084-1 #### [facility] CLIA [id number] [address] [place] [address] ALP [Catalytic activity/Vol] 88 U/L Normal 34-123 [facility] Comment on above: Order Comment: Speci men Type: BLOOD SPECIMEN Ordering Facility: [facility] Address: [address] [address] Performed By: #### 2 532-0, 89581-8, 3083- #### [facility] CLIA [id number] [address] [place] [address] ALT [Catalytic activity/Vol] 14 U/L Normal 7-38 [facility] Comment on above: Order Comment: Speci men Type: BLOOD SPECIMEN Ordering Facility: [facility] Address: [address] [address] Performed By: #### 2 532-0, 90341-3, 3083-03 #### [facility] CLIA [id number] [address] [place] [address] Anion gap [Moles/Vol] 10 mmol/L Normal 9-18 [facility] Comment on above: Order Comment: Speci men Type: BLOOD SPECIMEN Ordering Facility: [facility] Address: [address] [place] [address] Performed By: #### 2 532-0, , 3083-03 #### [facility] CLIA [id number] [address] [place] [address] AST [Catalytic activity/Vol] 18 U/L Normal 13-35 [facility] Comment on above: Order Comment: Speci men Type: BLOOD SPECIMEN Ordering Facility: [facility] Address: [address] [address] Performed By: #### 2 532-0, 80584-2, 3083-03 #### [facility] CLIA [id number] [address] [place] [address] Bilirubin [Mass/Vol] 0.3 mg/dL Normal 0.2-1.3 [facility] Comment on above: Order Comment: Speci men Type: BLOOD SPECIMEN Ordering Facility: [facility] Address: [address] [address] Performed By: #### 2 532-0, 80894-7, 3083- #### [facility] CLIA [id number] [address] [place] [address] Calcium [Mass/Vol] 9.3 mg/dL Normal 8.5-10.2 [facility] Comment on above: Order Comment: Speci men Type: BLOOD SPECIMEN Ordering Facility: [facility] Address: [address] [address] Performed By: #### 2 532-0, 23756-4, 3083- #### [facility] CLIA [id number] [address] [place] [address] Chloride [Moles/Vol] 101 mmol/L Normal 97-105 [facility] Comment on above: Order Comment: Speci men Type: BLOOD SPECIMEN Ordering Facility: [facility] Address: [address] [address] Performed By: #### 2 532-0, 95468-6, 3083-03 #### [facility] CLIA [id number] [address] [place] [address] CO2 [Moles/Vol] 25 mmol/L Normal 22-30 [facility] Comment on above: Order Comment: Speci men Type: BLOOD SPECIMEN Ordering Facility: [facility] Address: [address] [address] Performed By: #### 2 532-0, 22557-8, 3083- #### [facility] CLIA [id number] [address] [place] [address] Creatinine [Mass/Vol] 0.83 mg/dL Normal 0.58-0.96 [facility] Comment on above: Order Comment: Speci men Type: BLOOD SPECIMEN Ordering Facility: [facility] Address: [address] [address] Performed By: #### 2 532-0, 29972-8, 3083- #### [facility] CLIA [id number] [address] [place] [address] Creatinine and Glomerular filtration rate.predicted panel (S/P/Bld) 74 mL/min/1.73m??? Normal >=60 [facility] Comment on above: Order Comment: Nando mike Type: BLOOD SPECIMEN Ordering Facility: [facility] Address: [address] [place] [address] Result Comment: Juliann mated Glomerular Filtration Rate (eGFR) is calculated using the 2020 CKD-EPI creatinine equation. This equation utilizes serum creatinine, sex, and age as parameters. The creatinine assay has traceable calibration to isotope dilution-mass spectrometry. Refer to KDIGO guidelines for clinical interpretation. In patients with unstable renal function, e.g. those with acute kidney injury, the eGFR may not accurately reflect actual GFR. Performed By: #### 2 532-0, 20752-8, 3084-1 #### [facility] CLIA [id number] [address] [place] [address] Glucose [Mass/Vol] 90 mg/dL Normal 74-99 [facility] Comment on above: Order Comment: Nando mike Type: BLOOD SPECIMEN Ordering Facility: [facility] Address: [address] [place] [address] Result Comment: The [place] Diabetes Association (ADA) provides guidance for cutoff values for fasting glucose and random glucose. The ADA defines fasting as no caloric intake for at least 8 hours. Fasting plasma glucose results between 100 to 125 mg/dL indicate increased risk for diabetes (prediabetes). Fasting plasma glucose results greater than or equal to 126 mg/dL meet the criteria for diagnosis of diabetes. In the absence of unequivocal hyperglycemia, results should be confirmed by repeat testing. In a patient with classic symptoms of hyperglycemia or hyperglycemic crisis, random plasma glucose results greater than or equal to 200 mg/dL meet the criteria for diagnosis of diabetes. Reference: Standards of Medical Care in Diabetes 2016, [place] Diabetes Association. Diabetes Care. 2016.39(Suppl 1). Performed By: #### 2 532-0, 43439-6, 3084-1 #### [facility] CLIA [id number] [address] [place] [address] Potassium [Moles/Vol] 4.5 mmol/L Normal 3.7-5.1 [facility] Comment on above: Order Comment: Speci men Type: BLOOD SPECIMEN Ordering Facility: [facility] Address: [address] [place] [address] Performed By: #### 2 532-0, 17784-6, 3083-03 #### [facility] CLIA [id number] [address] [place] [address] Protein [Mass/Vol] 6.5 g/dL Normal 6.3-8.0 [facility] Comment on above: Order Comment: Speci men Type: BLOOD SPECIMEN Ordering Facility: [facility] Address: [address] [place] [address] Performed By: #### 2 532-0, 50400-3, 3083-03 #### [facility] CLIA [id number] [address] [place] [address] Sodium [Moles/Vol] 136 mmol/L Normal 136-144 [facility] Comment on above: Order Comment: Speci men Type: BLOOD SPECIMEN Ordering Facility: [facility] Address: [address] [place] [address] Performed By: #### 2 532-0, , 3083-03 #### [facility] CLIA [id number] [address] [place] [address] Urea nitrogen [Mass/Vol] 11 mg/dL Normal 7-21 [facility] Comment on above: Order Comment: Speci men Type: BLOOD SPECIMEN Ordering Facility: [facility] Address: [address] [place] [address] Performed By: #### 2 532-0, 07546-1, 3083-03 #### [facility] CLIA [id number] [address] [place] [address] LDH SerPl-cCncon 11-08-2022 LDH [Catalytic activity/Vol] 171 U/L Normal 135-214 [facility] Comment on above: Order Comment: Speci men Type: BLOOD SPECIMEN Ordering Facility: [facility] Address: [place] [address] Performed By: #### 2 532-0, 90658-1, 3084-1 #### [facility] CLIA [id number] [address] [place] [address] Urate SerPl-mCncon 3 Urate [Mass/Vol] 4.5 mg/dL Normal 2.5-6.6 Don rahman [facility] Comment on above: Order Comment: Speci men Type: BLOOD SPECIMEN Ordering Facility: [facility] Address: [address] [place] [address] Performed By: #### 2 532-0, 84725-4, 3084-1 #### [facility] CLIA [id number] [address] [place] [address] Antolin 08-19-2022 L --- Specimen: [id number] Received: 08/19/22 Status: BERTA Phil Num: [id number] Spec Type: Surgical Subm Dr: Jake Mireles MD Tissues: A Colon Biopsy (SIGMOID POLYP) B Colon Biopsy (RECTAL POLYP) Procedures: HE/4, Gross/Micro L4/2 Age/ Patient Sex Location Account Attending Physician Nadeen Oquendo Stephen 71/F [id number] Jake Mireles MD SPEC NUM: [id number] RECD: 08/19/22 STATUS: BERTA VILLARREAL NUM: [id number] DARI: 08/19/22- SUBM DR: Jake Mireles MD ENTERED: 08/19/22-1003 [facility] DR: JANA TYPE: Surgical DEPT: S ORDERED: HE/4, Gross/Micro L4/2 ORDERED: HE/4, Gross/Micro L4/2 Pathological Diagnosis A. Colon, sigmoid, polyp, biopsy: - Tubular adenoma. - Melanosis coli. B. Rectum, polyp, biopsy: - Tubular adenoma. Clinical Information Screening Gross Description A. Received in formalin labeled with the patient's name, number and sigmoid polyp is one fragment of soft waite tissue measuring 1.4 x 0.2 x 0.1 cm. Entirely submitted in one cassette labeled A1. B. Received in formalin labeled with the patient's name, number and rectal polyp is one fragment of soft waite tissue measuring 0.2 cm. Entirely submitted in one cassette labeled B1. Specimen: [id number] Received: 08/19/22 Status: BERTA Villarreal Num: [id number] Spec Type: Surgical Subm Dr: Jake Mireles MD Tissues: A Colon Biopsy (SIGMOID POLYP) B Colon Biopsy (RECTAL POLYP) Procedures: PADMINI Gross/Micro L4/2 Patient: OquendoNadeen Stephen [id number] (Continued) Specimen: [id number] Received: 08/19/22 (Continued) Signed (signature on file) Lyn Velez MD 08/20/22 1017 Specimen: [id number] Received: 08/19/22 Status: BERTA Villarreal Num: [id number] Spec Type: Surgical Subm Dr: Jake Mireles MD Tissues: A Colon Biopsy (SIGMOID POLYP) B Colon Biopsy (RECTAL POLYP) Procedures: HE/4, Gross/Micro L4/2 Patient: Nadeen Oquendo [id number] (Continued) Specimen: [id number] Received: 08/19/22 (Continued) Microscopic Description A. Two H E slides reviewed. The microscopic examination confirms the diagnosis. B. Two H E slides reviewed. The microscopic examination confirms the diagnosis. CPT Codes 84154j7 Specimen: [id number] Received: 08/19/22 Status: BERTA Villarreal Num: [id number] Spec Type: Surgical Subm Dr: Jake Mireles MD Tissues: A Colon Biopsy (SIGMOID POLYP) B Colon Biopsy (RECTAL POLYP) Procedures: HE/4, Gross/Micro L4/2 Patient: Nadeen Oquendo [id number] (Continued) Signed (signature on file) Lyn Velez MD 08/20/22 1017 [facility] Comprehensive metabolic 2000 panelon 05-10-2022 Albumin [Mass/Vol] 4.7 g/dL 3.9 - 4.9 g/dL [facility] ALP [Catalytic activity/Vol] 80 U/L 34 - 123 U/L [facility] ALT [Catalytic activity/Vol] 12 U/L 7 - 38 U/L [facility] Anion gap [Moles/Vol] 9 mmol/L 9 - 18 mmol/L [facility] AST [Catalytic activity/Vol] 19 U/L 13 - 35 U/L [facility] Bilirubin [Mass/Vol] 0.3 mg/dL 0.2 - 1.3 mg/dL [facility] Calcium [Mass/Vol] 10.0 mg/dL 8.5 - 10. 2 mg/dL [facility] Chloride [Moles/Vol] 102 mmol/L 97 - 105 mmol/L [facility] CO2 [Moles/Vol] 26 mmol/L 22 - 30 mmol/L [facility] Creatinine [Mass/Vol] 0.87 mg/dL 0.58 - 0.96 mg/dL [facility] Estimated Glomerular Filtration Rate 70 mL/min/1.73m >=60 mL/min/1.73m [facility] Glucose [Mass/Vol] 93 mg/dL 74 - 99 mg/dL [facility] Potassium [Moles/Vol] 4.4 mmol/L 3.7 - 5.1 mmol/L [facility] Protein [Mass/Vol] 6.6 g/dL 6.3 - 8.0 g/dL [facility] Sodium [Moles/Vol] 137 mmol/L 136 - 144 mmol/L [facility] Urea nitrogen [Mass/Vol] 10 mg/dL 7 - 21 mg/dL [facility] LD LACTATE DEHYDROon 023 LDH [Catalytic activity/Vol] 172 U/L 135 - 214 U/L [facility] URIC ACID BLOODon 05-10-2022 Urate [Mass/Vol] 4.3 mg/dL 2.5 - 6.6 mg/dL [facility] CT CSPINE WO CONon 2 CT CSPINE WO CON CT CERVICAL SPINE WITHOUT CONTRAST HISTORY: HEADACHE. COMPARISON: None available. TECHNIQUE: Helical CT images were performed of the cervical spine without intravenous contrast. Dose reduction techniques were achieved by using automated exposure control and/or adjustment of mA and/or kV according to patient size and/or use of iterative reconstruction technique. FINDINGS: MINERALIZATION: Normal. No evidence of destructive lesions. CRANIOCERVICAL AND ATLANTOAXIAL ARTICULATIONS: Intact with no traumatic subluxation. VERTEBRAL BODIES: Normal in height with no acute compression fracture. DISC SPACES: Mild multilevel disc space narrowing with disc marginal osteophytes, most significant at C5-C6. ALIGNMENT: No traumatic malalignment. Straightening with mild reversal of the normal cervical lordosis could be due to degenerative changes and/or spasm. POSTERIOR ELEMENTS: Appear intact. There is mild multilevel facet arthropathy. ODONTOID PROCESS: Intact. VISUALIZED SKULL BASE: Unremarkable. SPINAL CANAL/NEURAL FORAMEN: Spondylotic changes described above, greatest at C5-C6 producing moderate left neural foraminal stenosis, mild canal and right neural foraminal stenosis. SOFT TISSUES OF THE NECK: Unremarkable. UPPER THORAX: No apical pneumothorax. Mild biapical pleural thickening/scarring. IMPRESSION: No acute cervical spine fracture or traumatic malalignment. Mild cervical spondylosis. Electronically authenticated by: ALFREDO GODOY Date: 2022-02-07 00:34 Normal [facility] CT HEAD WO CONon 02-07-2022 CT HEAD WO CON EXAMINATION: CT HEAD WO CON HISTORY: HEADACHE COMPARISON: None. TECHNIQUE: CT examination of the head without IV contrast. Multiplanar reformats generated. Dose reduction techniques were achieved by using automated exposure control and/or adjustment of mA and/or kV according to patient size and/or use of iterative reconstruction technique. FINDINGS: Acute Findings: No evidence of acute intracranial hemorrhage, large acute territorial infarct, or suggestion of mass effect. No midline shift. MRI is more sensitive for detecting acute processes such as infarct, and may be considered if clinically warranted. Chronic Changes: Mild generalized brain atrophy. Mild scattered foci of white matter hypoattenuation, most likely related to chronic microvascular ischemia. Ventricles and sulci: Prominence of the ventricles and CSF spaces, likely related to brain volume loss. Other: Soft tissue scalp hematoma over the right parietal region up to 12 mm thick. The skull appears grossly intact, without visualized fracture. No significant fluid is seen in the included paranasal sinuses. Frontal sinuses are developmentally not pneumatized. Mastoid air cells are clear. Visualized portions of the orbits show no gross abnormality. IMPRESSION: 1. Right scalp hematoma without evidence of calvarial fracture. 2. No CT evidence of an acute intracranial abnormality. 3. Atrophy and chronic microvascular ischemic white matter changes. Electronically authenticated by: ALFREDO GODOY Date: 2022-02-06 23:57 Normal [facility] XR HIP LT 2 3V W PELVISon XR HIP LT 2 3V W PELVIS EXAM: XR HIP LT 2 3V W PELVIS HISTORY: Pain COMPARISON: None. TECHNIQUE AND FINDINGS: Frontal view pelvis and 2 views of the left hip. No visible acute fracture lucency or dislocation. Unremarkable soft tissues without radiopaque foreign body seen. IMPRESSION: No evidence of pelvic or left hip fracture. Electronically authenticated by: ALFREDO GODOY Date: 2022-02-07 00:13 Normal [facility] SCREENING MAMMOGRAM W/RAMIRO, BILATERAL*on 10-16-2021 SCREENING MAMMOGRAM W/RAMIRO, BILATERAL* CLINICAL HISTORY: Screening Mammogram COMPARISON: 06/04/2019, 05/22/2018, and 05/04/2017. TECHNIQUE: 2D and 3D Tomosynthesis of the right and left breasts was performed. FINDINGS: Both breasts remain heterogeneously dense bilaterally, with stable asymmetry. There are no suspicious masses, areas of suspicious microcalcifications or areas of architectural distortion identified. No evidence of skin thickening. IMPRESSION: BIRADS 1 : NEGATIVE, NORMAL INTERVAL FOLLOW UP. Board certified radiologist. Accredited by the ACR and FDA. MAMMOGRAPHY IS VERY IMPORTANT TO YOUR HEALTH. CURRENT [place] [employer] GUIDELINES RECOMMENDS ANNUAL MAMMOGRAPHY BEGINNING AT AGE 38. THIS FACILITY USUALLY USES A REMINDER SYSTEM TO ENSURE ALL POSITIONS RECEIVED REMINDER NOTIFICATIONS AT THE TIME BASED ON THE RECOMMENDATIONS OF THIS EXAM. Report reported and signed by Guerline Puri on 10/17/2021 1316 Normal [facility] [employer] CT CHEST WO CONon 09-23-2021 CT CHEST WO CON EXAMINATION: CT CHES T WO CON HISTORY: Solitary nodule of lung follow-up; cough COMPARISON: CT lung cancer screening 03/25/2021 TECHNIQUE: Axial, Coronal, and Sagittal images were created without the administration of IV contrast material. Dose reduction techniques were achieved by using automated exposure control and/or adjustment of mA and/or kV according to patient size and/or use of iterative reconstruction technique. FINDINGS: LUNGS: Clear to previously seen 5 mm opacity within the right lower lobe adjacent the minor fissure. Stable appearance of a few chronic calcified granulomas in tiny nodules scattered within the lungs favoring chronic granulomatous disease. PLEURA: No mass, effusion, or pneumothorax. VASCULATURE: No abnormality. JIAN: Calcified left hilar lymph nodes. MEDIASTINUM: No mass or adenopathy. CARDIAC: No enlargement or pericardial thickening. AORTA: No aneurysm or dissection. CHEST WALL: No mass or axillary adenopathy. BONES: No bone lesion or fracture. LIMITED ABDOMEN: Stable hepatic cysts versus hemangiomas. Limited images of the upper abdomen. OTHER: Negative. IMPRESSION: 1. LUNG SCREENING: Lung-RADS Category 2- Benign Appearance or Behavior. Nodules with a very low likelihood of becoming a clinically active cancer due to size or lack of growth. 2. Continue annual screening with LDCT in 12 months. Electronically authenticated by: GUERLINE ANDREWS Date: 2021-09-23 16:16 Normal [facility] CBC AUTO DIFFon 06-19-2021 BASO # 0.1 103/ul Normal 0.0-0.1 [facility] Comment on above: Performed By: #### D ATCBC ####[facility] [address] [place], [place] [address]Dr. Peace Dumont Basophils/100 WBC (Bld) 0.3 % Normal 0.2-2.0 [facility] Comment on above: Performed By: #### D ATCBC ####[facility] [address] [place], [place] [address]Dr. Peace Dumont EO # 0.4 103/ul Normal 0.0-0.7 [facility] Comment on above: Performed By: #### D ATCBC ####[facility] [address] [place], [place] [address]Dr. Peace Dumont Eosinophils/100 WBC (Bld) 1.7 % Normal 0.9-7.0 [facility] Comment on above: Performed By: #### D ATCBC ####[facility] [address] [place], [place] [address]Dr. Peace Dumont Erythrocyte distribution width (RBC) [Ratio] 13.4 % Normal 11.0-15.0 [facility] Comment on above: Performed By: #### D ATCBC ####[facility] [address] [place], [place] [address]Dr. Peace Dumont Hematocrit (Bld) [Volume fraction] 38.4 % Normal 36.0-48.0 [facility] Comment on above: Performed By: #### D ATCBC ####[facility] [address] [place], [place] [address]Dr. Peace Dumont Hemoglobin (Bld) [Mass/Vol] 13.0 g/dL Normal 12.0-16.0 [facility] Comment on above: Performed By: #### D ATCBC ####[facility] [address] [place], [place] [address]Dr. Peace Dumont IG # 0.03 10e3/ul Normal 0.00-0.03 [facility] Comment on above: Performed By: #### D ATCBC ####[facility] [address] [place], [place] [address]Dr. Peace Dumont IG % 0.1 % Normal 0.0-0.5 [facility] Comment on above: Performed By: #### D ATCBC ####[facility] [address] [place] [id number]. Peace Dumont LYMPH # 15.3 103/ul Critically high 1.2-3.8 [facility] Comment on above: Performed By: #### D ATCBC ####[facility] [address] [place] [id number]. Peace Dumont Lymphocytes/100 WBC (Bld) 75.8 % Critically high 20.5-60.0 [facility] Comment on above: Performed By: #### D ATCBC ####[facility] [address] [place] [id number]. Peace Dumont MCH (RBC) [Entitic mass] 31.6 pg Normal 26.7-34.0 [facility] Comment on above: Performed By: #### D ATCBC ####[facility] [address] [place], [place] [address]Dr. Peace Tim MCHC (RBC) [Mass/Vol] 33.9 g/dL Normal 29.9-35.2 [facility] Comment on above: Performed By: #### D ATCBC ####[facility] [address] [place] [id number]. Peace Tim MCV (RBC) [Entitic vol] 93.4 fL Normal 81.0-99.0 [facility] Comment on above: Performed By: #### D ATCBC ####[facility] [address] [place] [id number]. Peace Tim MONO # 1.3 103/ul Critically high 0.3-0.8 [facility] Comment on above: Performed By: #### D ATCBC ####[facility] [address] [place], [place] [id number]. Peace Tim Monocytes/100 WBC (Bld) 6.3 % Normal 1.7-12.0 [facility] Comment on above: Performed By: #### D ATCBC ####[facility] [address] [place], [place] [id number]. Peace Dumont NEUT # 3.2 103/ul Normal 1.4-6.5 [facility] Comment on above: Performed By: #### D ATCBC ####[facility] [address] [place] [id number]. Peace Dumont Neutrophils/100 WBC (Bld) 15.8 % Critically low 43.0-75.0 [facility] Comment on above: Performed By: #### D ATCBC ####[facility] [address] [place] [id number]. Peace Dumont Platelet mean volume (Bld) [Entitic vol] 9.9 fL Normal 9.5-13.5 [facility] Comment on above: Performed By: #### D ATCBC ####[facility] [address] [place] [address]Dr. Peace Dumont PLT 182 103/ul Normal 150-450 [facility] Comment on above: Performed By: #### D ATCBC ####[facility] [address] [place] [address]Dr. Peace Dumont RBC 4.11 106/ul Critically low 4.20-5.40 [facility] Comment on above: Performed By: #### D ATCBC ####[facility] [address] [place] [address]Dr. Peace Dumont WBC 20.3 103/ul Critically high 4.0-11.0 [facility] Comment on above: Performed By: #### D ATCBC ####[facility] [address] [place] [id number] Dumont ERNESTINE- BMP WITH LIPIDon 2021 Anion gap [Moles/Vol] 11.2 mmol/L Normal [facility] Comment on above: Performed By: #### D ATBMP #### [facility] [address] [address] [address] Peace Dumont Calcium [Mass/Vol] 8.7 mg/dL Normal 8.5-10.1 [facility] Comment on above: Performed By: #### D ATBMP #### [facility] [address] [address] [address] Peace Dumont Chloride [Moles/Vol] 103 mmol/L Normal 98-107 [facility] Comment on above: Performed By: #### D ATBMP #### [facility] [address] [address] [address] Peace Dumont Cholesterol [Mass/Vol] 208 mg/dL Critically high <=200 [facility] Comment on above: Performed By: #### D ATBMP #### [facility] [address] [address] [address] Peace Dumont Cholesterol in HDL [Mass/Vol] 56 mg/dL Normal 40-60 [facility] Comment on above: Performed By: #### D ATBMP #### [facility] [address] [address] [address] Peace Dumont Cholesterol in LDL [Mass/Vol] 136.8 mg/dL Normal [facility] Comment on above: Performed By: #### D ATBMP #### [facility] [address] [address] [address] Peace Dumont CO2 [Moles/Vol] 27.8 mmol/L Normal 22.0-30.0 [facility] Comment on above: Performed By: #### D ATBMP #### [facility] [address] [place] [address] Dr. Peace Dumont Creatinine [Mass/Vol] 0.82 mg/dL Normal 0.52-1.04 [facility] Comment on above: Performed By: #### D ATBMP #### [facility] [address] [address] [address] Peace Dumont EGFR-AF [place] >60 Normal >=60 [facility] Comment on above: Performed By: #### D ATBMP #### [facility] [address] [address] [address] Peace Dumont EGFR-NON AF [place] >60 Normal >=60 [facility] Comment on above: Performed By: #### D ATBMP #### [facility] [address] [place] [address] Dr. Peace Dumont Glucose [Mass/Vol] 90 mg/dL Normal 74-106 [facility] Comment on above: Performed By: #### D ATBMP #### [facility] [address] [address] [address] Peace Dumont HDL NORMAL > or = 60 mg/dl - LO W CARDIOVASCULAR RISK <40 mg/dl - HIGH CARDIOVASCULAR RISK Normal [facility] Comment on above: Performed By: #### D ATBMP #### [facility] [address] [address] [address] Peace Dumont LDL CALC NORMAL SEE BELOW Normal [facility] Comment on above: Result Comment: <100 mg/dl OPTIMAL 100 - 129 mg/dl NEAR OR ABOVE OPTIMAL 130 - 159 mg/dl BORDERLINE HIGH 160 - 189 mg/dl HIGH >190 mg/dl VERY HIGH Performed By: #### D ATBMP #### [facility] [address] [address] [address] Peace Dumont Potassium [Moles/Vol] 4.0 mmol/L Normal 3.4-5.0 [facility] Comment on above: Performed By: #### D ATBMP #### [facility] [address] [address] [address] Peace Dumont Sodium [Moles/Vol] 138 mmol/L Normal 137-145 [facility] Comment on above: Performed By: #### D ATBMP #### [facility] [address] [address] [address] Peace Dumont Triglyceride [Mass/Vol] 76 mg/dL Normal <=150 [facility] Comment on above: Performed By: #### D ATBMP #### [facility] [address] [address] [address] Peace Dumont Urea nitrogen [Mass/Vol] 14.0 mg/dL Normal 7.0-18.0 [facility] Comment on above: Performed By: #### D ATBMP #### [facility] [address] [place] [address] Dr. Peace Dumont Urea nitrogen/Creatinine [Mass ratio] 17.1 mg/mg Normal [facility] Comment on above: Performed By: #### D ATBMP #### [facility] [address] [place], [place] [address] Dr. Peace Dumont VLDL CALC 15.2 mg/dL Normal [facility] Comment on above: Performed By: #### D [facility] #### [facility] [id number] Peace Dumont CT LUNG CANCER SCREENINGon 0 03-25-2021 CT LUNG CANCER SCREENING EXAMINATION: CT LUNG CANCER SCREENING HISTORY: Nicotine dependence COMPARISON: CT lung cancer screening 03/19/2020, 03/01/2019 TECHNIQUE: Axial, Coronal, and Sagittal images were created without the administration of IV contrast material. Dose reduction techniques were achieved by using automated exposure control and/or adjustment of mA and/or kV according to patient size and/or use of iterative reconstruction technique. FINDINGS: LUNGS: New 5 mm opacity within right upper lobe adjacent the minor fissure. Stable appearance of the few small calcified and noncalcified nodules scattered within the lungs. PLEURA: No mass, effusion, or pneumothorax. VASCULATURE: No abnormality. JIAN: Multiple calcified left hilar lymph nodes. MEDIASTINUM: No mass or pathologic adenopathy. CARDIAC: No enlargement, pericardial thickening, or significant calcification. AORTA: No aneurysm or dissection. CHEST WALL: No mass or axillary adenopathy BONES: No bone lesion or fracture. LIMITED ABDOMEN: 2 round nonspecific hypodensities within right hepatic dome, nonspecific but suspected represent cysts or hemangiomas; stable. Limited images of the upper abdomen. OTHER: Negative. IMPRESSION: 1. LUNG SCREENING: Lung-RADS Category 3- Probably benign. Probably benign finding(s)- short term follow up suggested; includes nodules with a low likelihood of becoming a clinically active cancer. Six month LDCT. 2. A 5 mm opacity/nodule within the right upper lobe adjacent the minor fissure. Follow-up CT imaging in 6 months is recommended to document stability. 3. Stable appearance of previously seen tiny calcified and noncalcified nodules. 4. Evidence of chronic granulomatous disease. Electronically authenticated by: GUERLINE ANDREWS Date: 2021-03-25 11:05 Normal [facility] Covid-19 PCR (CVDTB)on 12-0 SARS-CoV-2 (COVID-19) RNA ENRIQUE+probe Ql (Unsp spec) Not detected Normal NOT DETECTED [facility] Comment on above: Result Comment: This test is not yet approved or cleared by the [place] FDA. When there are no FDA-approved or cleared tests available, and other criteria are met, FDA can make tests available under an emergency access mechanism called an Emergency Use Authorization (EUA). The EUA for this test is supported by the [place] of Health and Human Service's (HHS's) declaration that circumstances exist to justify the emergency use of in vitro diagnostics for the detection and/or diagnosis of the virus that causes COVID-19. This EUA will remain in effect (meaning this test can be used) for the duration of the COVID-19 declaration justifying emergency of IVDs, unless it is terminated or revoked by FDA (after which the test may no longer be used). When diagnostic testing is negative, the possibility of a false negative should be considered in the context of a patient's recent exposures and the presence of clinical signs and symptoms consistent with SARS-CoV-2. Performed By: #### C [facility] ####[facility] [address] [place], [place] [address]Wc. Peace Dumont PROGRESSon 08-24-2017 [facility] NOTES Normal [facility] PROGRESSon 01-25-2017 [facility] NOTES Normal [facility] Vital Signs Date Time Vital Sign Value Performing Clinician Facility 10-19-2023 09:42-0400 Body height 175.26 cm [facility] 10-19-2023 09:42-0400 Body mass index (BMI) [Ratio] 20.3 kg/m2 [facility] 10-19-2023 09:42-0400 Body weight 62.59 kg [facility] 09-05-2023 09:48-0400 Body height 175.26 cm [facility] 09-05-2023 09:48-0400 Body mass index (BMI) [Ratio] 20.4 kg/m2 [facility] 09-05-2023 09:48-0400 Body weight 62.82 kg [facility] 09-05-2023 09:48-0400 Diastolic blood pressure 86 mm[Hg] [facility] 09-05-2023 09:48-0400 Heart rate 60 /min [facility] 09-05-2023 09:48-0400 Respiratory rate 12 /min [facility] 09-05-2023 09:48-0400 Systolic blood pressure 139 mm[Hg] [facility] 06-20-2023 13:53-0400 Body height 175.26 cm [facility] 06-20-2023 13:53-0400 Body mass index (BMI) [Ratio] 20.2 kg/m2 [facility] 06-20-2023 13:53-0400 Body weight 62.14 kg [facility] 06-20-2023 13:53-0400 Diastolic blood pressure 74 mm[Hg] [facility] 06-20-2023 13:53-0400 Heart rate 60 /min [facility] 06-20-2023 13:53-0400 Respiratory rate 12 /min [facility] 06-20-2023 13:53-0400 Systolic blood pressure 131 mm[Hg] [facility] 05-09-2023 09:54-0500 Body height 175.3 cm Fernando Hanna MD Work Phone: [facility] 05-09-2023 09:54-0500 Body temperature 98.01 [degF] Fernando Hanna MD Work Phone: [facility] 05-09-2023 09:54-0500 Body weight 61.6 kg Fernando Hanna MD Work Phone: [facility] 05-09-2023 09:54-0500 Diastolic blood pressure 73 mm[Hg] Fernando Hanna MD Work Phone: [facility] 05-09-2023 09:54-0500 Heart rate 65 /min Fernando Hanna MD Work Phone: [facility] 05-09-2023 09:54-0500 Respiratory rate 16 /min Fernando Hanna MD Work Phone: [facility] 05-09-2023 09:54-0500 SaO2% (BldA) [Mass fraction] 99 % Fernando Hanna MD Work Phone: [facility] 05-09-2023 09:54-0500 Systolic blood pressure 140 mm[Hg] Fernando Hanna MD Work Phone: [facility] 04-20-2023 09:45-0500 Body height 175.26 cm Schuyler Ball Other [facility] 04-20-2023 09:45-0500 Body mass index (BMI) [Ratio] 20.02 kg/m2 Schuyler Ball Other [facility] Other 04-20-2023 09:45-0500 Body weight 61.51 kg Schuyler Ball Other [facility] Other 04-20-2023 09:45-0500 Body weight 61.5 kg [facility] 04-20-2023 09:45-0500 Diastolic blood pressure 77 mm[Hg] Schuyler Ball Other [facility] 04-20-2023 09:45-0500 Respiratory rate 12 /min Schuyler Ball Other [facility] Other 04-20-2023 09:45-0500 Systolic blood pressure 133 mm[Hg] Schuyler Ball Other [facility] 02-25-2023 10:30-0500 Body height 175.26 cm Schuyler Ball Other [facility] Other 02-25-2023 10:30-0500 Body mass index (BMI) [Ratio] 19.93 kg/m2 Schuyler Ball Other [facility] Other 02-25-2023 10:30-0500 Body weight 61.24 kg Schuyler Ball Other [facility] Other 02-25-2023 10:30-0500 Diastolic blood pressure 84 mm[Hg] Schuyler Ball Other [facility] Other 02-25-2023 10:30-0500 Respiratory rate 16 /min Schuyler Ball Other [facility] Other 02-25-2023 10:30-0500 SaO2% (BldA) [Mass fraction] 97 % Schuyler Ball Other [facility] Other 02-25-2023 10:30-0500 Systolic blood pressure 148 mm[Hg] Schuyler Ball Other [facility] Other 02-18-2023 08:45-0500 Body height 175.26 cm Schuyler Ball Other [facility] Other 02-18-2023 08:45-0500 Body mass index (BMI) [Ratio] 20.35 kg/m2 Schuyler Ball Other [facility] Other 02-18-2023 08:45-0500 Body weight 62.51 kg Schuyler Ball Other [facility] Other 02-18-2023 08:45-0500 Diastolic blood pressure 84 mm[Hg] Schuyler Ball Other [facility] Other 02-18-2023 08:45-0500 Respiratory rate 12 /min Schuyler Ball Other [facility] Other 02-18-2023 08:45-0500 Systolic blood pressure 151 mm[Hg] Schuyler Ball Other [facility] Other 01-12-2023 15:15-0400 Body height 175.26 cm Schuyler Ball Other [facility] Other 01-12-2023 15:15-0400 Body mass index (BMI) [Ratio] 20.49 kg/m2 Schuyler Ball Other [facility] Other 01-12-2023 15:15-0400 Body weight 62.96 kg Schuyler Ball Other [facility] Other 01-12-2023 15:15-0400 Diastolic blood pressure 81 mm[Hg] Schuyler Ball Other [facility] Other 01-12-2023 15:15-0400 Respiratory rate 12 /min Schuyler Ball Other [facility] Other 01-12-2023 15:15-0400 Systolic blood pressure 131 mm[Hg] Schuyler Ball Other [facility] Other 12-17-2022 13:45-0400 Body height 175.26 cm Schuyler Ball Other [facility] Other 12-17-2022 13:45-0400 Body mass index (BMI) [Ratio] 20.67 kg/m2 Schuyler Ball Other [facility] Other 12-17-2022 13:45-0400 Body weight 63.5 kg Schuyler Ball Other [facility] Other 12-17-2022 13:45-0400 Diastolic blood pressure 79 mm[Hg] Schuyler Ball Other [facility] Other 12-17-2022 13:45-0400 Respiratory rate 12 /min Schuyler Ball Other [facility] Other 12-17-2022 13:45-0400 Systolic blood pressure 149 mm[Hg] Schuyler Ball Other [facility] Other 12-04-2022 11:30-0400 Body height 175.26 cm Daija Cain Other [facility] Other 12-04-2022 11:30-0400 Body mass index (BMI) [Ratio] 20.38 kg/m2 Daija Cain Other [facility] Other 12-04-2022 11:30-0400 Body temperature 98.1 [degF] Daija Wildermond Other [facility] Other 12-04-2022 11:30-0400 Body weight 62.6 kg Daija Wildermond Other [facility] Other 12-04-2022 11:30-0400 Diastolic blood pressure 69 mm[Hg] Daija Cain Other [facility] Other 12-04-2022 11:30-0400 Respiratory rate 18 /min Daija Cain Other [facility] Other 12-04-2022 11:30-0400 SaO2% (BldA) [Mass fraction] 99 % Daija Cain Other [facility] Other 12-04-2022 11:30-0400 Systolic blood pressure 141 mm[Hg] Daija Wildermond Other [facility] Other 08-19-2022 08:55-0400 Diastolic blood pressure 44 mm[Hg] DO Schuyler Ball Work Phone: [facility] 08-19-2022 08:55-0400 Heart rate 59 /min DO Schuyler Ball Work Phone: [facility] 08-19-2022 08:55-0400 Respiratory rate 16 /min DO Schuyler Ball Work Phone: [facility] 08-19-2022 08:55-0400 SaO2% (BldA) [Mass fraction] 100 % DO Schuyler Ball Work Phone: [facility] 08-19-2022 08:55-0400 Systolic blood pressure 89 mm[Hg] DO Schuyler Ball Work Phone: [facility] 08-19-2022 07:03-0400 Body height 175.26 cm DO Schuyler Ball Work Phone: [facility] 08-19-2022 07:03-0400 Body temperature 97.9 [degF] DO Schuyler Ball Work Phone: [facility] 08-19-2022 07:03-0400 Body weight 61.23 kg DO Schuyler Ball Work Phone: [facility] 06-23-2022 10:00-0400 Body height 167.64 cm Schuyler Ball Other [facility] Other 06-23-2022 10:00-0400 Body mass index (BMI) [Ratio] 21.69 kg/m2 Schuyler Ball Other [facility] Other 06-23-2022 10:00-0400 Body weight 60.96 kg Schuyler Ball Other [facility] Other 06-23-2022 10:00-0400 Diastolic blood pressure 70 mm[Hg] Schuyler Ball Other [facility] Other 06-23-2022 10:00-0400 Respiratory rate 16 /min Schuyler Ball Other [facility] Other 06-23-2022 10:00-0400 SaO2% (BldA) [Mass fraction] 99 % Schuylre Ball Other [facility] Other 06-23-2022 10:00-0400 Systolic blood pressure 116 mm[Hg] Schuyler Ball Other [facility] Other 05-26-2022 13:00-0500 Body height 175.26 cm Jake Singletonjose Other [facility] Other 05-26-2022 13:00-0500 Body mass index (BMI) [Ratio] 19.79 kg/m2 Jake Mireles Other [facility] Other 05-26-2022 13:00-0500 Body weight 60.78 kg Jake Singletonjose Other [facility] Other 05-26-2022 13:00-0500 Respiratory rate 16 /min Jake Mireles Other [facility] Other 05-10-2022 09:04-0500 Body height 175.3 cm Citlaly Cole APRN.INSURANCE MARKETING REP Work Phone: [facility] 05-10-2022 09:04-0500 Body temperature 98.71 [degF] Citlaly Cole APRN.INSURANCE MARKETING REP Work Phone: [facility] 05-10-2022 09:04-0500 Body weight 61.69 kg Citlaly Cole APRN.INSURANCE MARKETING REP Work Phone: [facility] 05-10-2022 09:04-0500 Diastolic blood pressure 78 mm[Hg] Citlaly Cole APRN.INSURANCE MARKETING REP Work Phone: [facility] 05-10-2022 09:04-0500 Heart rate 67 /min Citlaly Cole APRN.INSURANCE MARKETING REP Work Phone: [facility] 05-10-2022 09:04-0500 Respiratory rate 16 /min Citlaly Cole APRN.INSURANCE MARKETING REP Work Phone: [facility] 05-10-2022 09:04-0500 SaO2% (BldA) [Mass fraction] 100 % Citlaly Cole APRN.INSURANCE MARKETING REP Work Phone: [facility] 05-10-2022 09:04-0500 Systolic blood pressure 132 mm[Hg] Citlaly Cole APRN.CNP Work Phone: [facility] 12-27-2021 11:00-0400 Body height 175.26 cm Amy Liangault Other [facility] Other 12-27-2021 11:00-0400 Body mass index (BMI) [Ratio] 20.29 kg/m2 Amy Liangault Other [facility] Other 12-27-2021 11:00-0400 Body temperature 97 [degF] Amy Liangault Other [facility] Other 12-27-2021 11:00-0400 Body weight 62.32 kg Amy Liangault Other [facility] Other 12-27-2021 11:00-0400 Diastolic blood pressure 87 mm[Hg] Amy Mary Other [facility] Other 12-27-2021 11:00-0400 Respiratory rate 18 /min Amy Liangault Other [facility] Other 12-27-2021 11:00-0400 SaO2% (BldA) [Mass fraction] 100 % Amy Mary Other [facility] Other 12-27-2021 11:00-0400 Systolic blood pressure 135 mm[Hg] Amy Mary Other [facility] Other 11-09-2021 09:05-0400 Body height 175.3 cm Fernando Hanna MD Work Phone: [facility] 11-09-2021 09:05-0400 Body temperature 97.39 [degF] Fernando Hanna MD Work Phone: [facility] 11-09-2021 09:05-0400 Body weight 63.32 kg Fernando Hanna MD Work Phone: [facility] 11-09-2021 09:05-0400 Diastolic blood pressure 68 mm[Hg] Fernando Hanna MD Work Phone: [facility] 11-09-2021 09:05-0400 Heart rate 67 /min Fernando Hanna MD Work Phone: [facility] 11-09-2021 09:05-0400 Respiratory rate 16 /min Fernando Hanna MD Work Phone: [facility] 11-09-2021 09:05-0400 SaO2% (BldA) [Mass fraction] 98 % Fernando Hanna MD Work Phone: [facility] 11-09-2021 09:05-0400 Systolic blood pressure 136 mm[Hg] Fernando Hanna MD Work Phone: [facility] 04-13-2021 16:30-0500 Body height 175.26 cm Kedar Paredes Other [facility] Other 04-13-2021 16:30-0500 Body mass index (BMI) [Ratio] 20.38 kg/m2 Kedar Colbyfilemon Other [facility] Other 04-13-2021 16:30-0500 Body weight 62.6 kg Kedar Paredes Other [facility] Other 09-26-2019 13:23-0400 BMI (Body Mass Index) 20.53 kg/m2 [facility] 09-26-2019 13:23-0400 Body Temperature 96.91 [degF] [facility] 09-26-2019 13:23-0400 Body [facility] 63.05 [facility] 09-26-2019 13:23-0400 BP Diastolic 84 mm[Hg] [facility] 09-26-2019 13:23-0400 BP Systolic 140 mm[Hg] [facility] 09-26-2019 13:23-0400 Pulse (Heart Rate) 61 /min [facility] 02-28-2019 10:40-0500 BP Diastolic 79 mm[Hg] [facility] 02-28-2019 10:40-0500 BP Systolic 118 mm[Hg] [facility] 02-28-2019 10:40-0500 Height 175.3 cm [facility] 02-28-2019 10:40-0500 Pulse (Heart Rate) 67 /min [facility] Encounters Encounter Date Encounter Type Care Provider Facility Start: 10-19-2023 End: 10-19-2023 ambulatory [facility] Work Phone: Start: 10-19-2023 End: 10-19-2023 Patient encounter procedure [facility] Physician [facility] Gastroenterology Work Phone: Start: 09-26-2023 End: 09-26-2023 ambulatory KYLEE C DIDION Not Available Start: 2023 End: 2023 ambulatory MICHOACANO Dior MAG-NOSSEK Not Available Start: 09-05-2023 End: 09-05-2023 ambulatory JOJO A VISCI Not Available Start: 09-05-2023 End: 09-05-2023 ambulatory [facility] Work Phone: Start: 09-05-2023 End: 09-05-2023 Patient encounter procedure [facility] Physician [facility] Work Phone: Start: 08-22-2023 End: 08-22-2023 ambulatory KYLEE C DIDION Not Available Start: 08-02-2023 End: 08-02-2023 ambulatory MICHOACANO M MAG-NOSSEK Not Available Start: 07-28-2023 End: 07-28-2023 ambulatory KYLEE C DIDION Not Available Start: 07-15-2023 End: 07-15-2023 ambulatory JOJO GONSALVES Not Available Start: 06-30-2023 End: 06-30-2023 ambulatory KYLEE C DIDION Not Available Start: 06-20-2023 End: 06-20-2023 ambulatory [facility] Work Phone: Start: 06-20-2023 End: 06-20-2023 Patient encounter procedure [facility] Work Phone: Start: 06-20-2023 End: 06-20-2023 ambulatory MICHOACANO HATHAWAY-NOSK Not Available Start: 06-17-2023 Non-patient / Non-visit [facility] Work Phone: Start: 06-13-2023 End: 06-13-2023 ambulatory KYLEE C DIDION Not Available Start: 05-25-2023 End: 05-25-2023 ambulatory KYLEE C DIDION Not Available Start: 05-23-2023 End: 05-23-2023 ambulatory MICHOACANO HATHAWAY-NOSSEK Not Available Start: 05-16-2023 End: 05-16-2023 ambulatory KYLEE C DIDION Not Available Start: 05-09-2023 End: 05-09-2023 ambulatory SCHUYLER Hackett [place] Facility:[facility] Start: 05-09-2023 End: 05-09-2023 Office outpatient visit 15 minutes Fernando Hanna MD Work Phone: Hematology/Oncology Comment on above: Chronic lymphocytic leukemia (HCC) (Primary Dx) Start: 05-09-2023 Non-patient / Non-visit [facility] Work Phone: Start: 05-02-2023 Bamboo flowsheet Kylee Pierson n FIELD PIPELINES SUPERVISOR-S Work Phone: [facility] Start: 05-02-2023 Bamboo flowsheet Kylee Pierson n FIELD PIPELINES SUPERVISOR-S Work Phone: [facility] Start: 05-02-2023 End: 05-02-2023 ambulatory KYLEE C DIDION Not Available Start: 04-29-2023 Chart abstracting Kylee C Michelle on [employer] Work Phone: [facility] Start: 04-26-2023 End: 04-26-2023 ambulatory Schuyler Desir Other [facility] Other Start: 04-26-2023 Telephone encounter Schuyler Rosa [facility] Start: 04-25-2023 End: 04-25-2023 ambulatory KYLEE C DIDION Not Available Start: 04-24-2023 Chart abstracting Kylee Marie Michelle on [employer] Work Phone: [facility] Start: 04-20-2023 End: 04-20-2023 ambulatory Schuyler Desir Other [facility] Other Start: 04-20-2023 Office outpatient visit 15 minutes Schuyler CASTRO [facility] Start: 04-20-2023 End: 04-20-2023 Patient encounter procedure [facility]- Start: 04-18-2023 End: 04-18-2023 ambulatory KYLEE C DIDION Not Available Start: 04-11-2023 End: 04-11-2023 ambulatory KYLEE C DIDION Not Available Start: 04-04-2023 End: 04-04-2023 ambulatory KYLEE C DIDION Not Available Start: 03-29-2023 End: 03-29-2023 ambulatory Schuyler Desir Other [facility] Other Start: 03-29-2023 Telephone encounter Schuyler Rosa [employer] Start: 03-28-2023 End: 03-28-2023 ambulatory KYLEE C DIDION Not Available Start: 03-15-2023 End: 03-15-2023 ambulatory Schuyler Desir Other [facility] Other Start: 03-15-2023 Telephone encounter Schuyler MACDONALD [facility] Start: 03-04-2023 End: 03-04-2023 ambulatory Schuyler Desir Other [facility] Other Start: 03-04-2023 Telephone encounter Schuyler Desir FP [facility] Start: 03-03-2023 End: 03-03-2023 ambulatory Daija Cain Other [facility] Other Start: 03-03-2023 Telephone encounter Daija MACDONALD [facility] Start: 02-28-2023 End: 02-28-2023 ambulatory Schuyler Desir Other [facility] Other Start: 02-28-2023 Telephone encounter Schuyler Desir [facility] Start: 02-25-2023 End: 02-25-2023 ambulatory Schuyler Desir Other [facility] Other Start: 02-25-2023 Office outpatient visit 15 minutes Schuyler Desir [facility] Start: 02-18-2023 End: 02-18-2023 ambulatory Schuyler Desir Other [facility] Other Start: 02-18-2023 Office outpatient visit 15 minutes Schuyler Desir [facility] Start: 02-03-2023 End: 02-03-2023 ambulatory GUNNER WHITECHAR Not Available Start: 01-31-2023 End: 01-31-2023 ambulatory Schuyler Desir Other [facility] Other Start: 01-31-2023 Telephone encounter Schuyler Desir [facility] Start: 01-21-2023 End: 01-21-2023 ambulatory Schuyler Desir Other [facility] Other Start: 01-21-2023 Telephone encounter Schuyler Desir [facility] Start: 01-12-2023 End: 01-12-2023 ambulatory Schuyler Desir Other [facility] Other Start: 01-12-2023 Office outpatient visit 15 minutes Schuyler Desir [facility] Start: 12-21-2022 End: 12-21-2022 ambulatory Schuyler Desir Other [facility] Other Start: 12-21-2022 Telephone encounter Schuyler Desir [facility] Start: 12-17-2022 End: 12-17-2022 ambulatory Schuyler Desir Other [facility] Other Start: 12-17-2022 Office outpatient visit 15 minutes Schuyler Desir [facility] Start: 12-04-2022 Office outpatient visit 15 minutes Daija Cain [facility] Start: 12-04-2022 End: 12-04-2022 ambulatory DO Schuyler Desri Work Phone: [facility] Other Start: 12-04-2022 End: 12-04-2022 Patient encounter procedure DO Schuyler Desir Work Phone: [facility] Work Phone: Start: 11-08-2022 End: 11-08-2022 ambulatory SCHUYLER DESIR Facility:[facility] Start: 10-20-2022 End: 10-20-2022 ambulatory Schuyler Desir Other [facility] Other Start: 10-20-2022 Telephone encounter Schuyler Desir [facility] Start: 08-19-2022 Telephone encounter Jake MACDONALD [facility] Start: 08-19-2022 End: 08-19-2022 Admission to same day surgery center DO Schuyler Desir Work Phone: [facility] Work Phone: Start: 08-19-2022 End: 08-19-2022 ambulatory DO Schuyler Desir Work Phone: [facility] Work Phone: Start: 06-23-2022 End: 06-23-2022 ambulatory Schuyler Desir Other [facility] Other Start: 06-23-2022 Patient encounter procedure Schuyler Desir [facility] Start: 05-27-2022 End: 05-27-2022 ambulatory Schuyler Desir Other [facility] Other Start: 05-27-2022 Telephone encounter Schuyler Desir [facility] Start: 05-26-2022 End: 05-26-2022 ambulatory Jake Mireles Other [facility] Other Start: 05-26-2022 Patient encounter procedure Jake Mireles [facility] Start: 05-10-2022 End: 05-10-2022 ambulatory Citlaly Cole GRAB OPERATOR.INSURANCE MARKETING REP Work Phone: Hematology/Oncology Comment on above: Chronic lymphocytic leukemia (HCC) (Primary Dx) Start: 05-10-2022 End: 05-10-2022 Patient encounter procedure Citlaly Cole GRAB OPERATOR.INSURANCE MARKETING REP Work Phone: [place] Start: 05-07-2022 Telephone encounter Citlaly galeano GRAB OPERATOR.INSURANCE MARKETING REP Work Phone: Hematology/Oncology Comment on above: Lab Orders Start: 02-07-2022 End: 02-07-[address] DORITA GRANT Facility: Start: 12-27-2021 End: 12-27-2021 ambulatory Amy Hernandez Other [facility] Other Start: 12-27-2021 Office outpatient visit 15 minutes Amy Hernandez [facility] Start: 11-09-2021 End: 11-09-2021 ambulatory Fernando Hanna MD Work Phone: Hematology/Oncology Comment on above: Chronic lymphocytic leukemia (HCC) (Primary Dx) Start: 11-09-2021 End: 11-09-2021 Patient encounter procedure Fernando Hanna MD Work Phone: [place] Start: 09-23-2021 End: 09-24-[address] SCHUYLER DESIR Facility:[facility] Start: 08-12-2021 End: 09-03-[address] SCHUYLER DESIR Facility:[facility] Start: 06-19-2021 End: 06-20-[address] KELLE ROSALES Facility:[facility] Start: 06-17-2021 Adult health examination Schuyler Desir Other [facility] Other Start: 04-30-2021 End: 04-30-2021 ambulatory RIVERA GIBBONS Facility:[facility] Start: 04-13-2021 End: 04-13-2021 ambulatory Kedar Paredes Other [facility] Other Start: 04-13-2021 Office outpatient visit 25 minutes Kedar Paredes [facility] G[facility] Start: 03-26-2021 End: 03-26-2021 ambulatory RIVERA GIBBONS Facility:[facility] Start: 03-25-2021 End: 03-26-[address] SCHUYLER DESIR Facility:[facility] Start: 03-17-2021 End: 03-17-[address] SCHUYLER DESIR Facility:[facility] Start: 03-06-2021 End: 06-15-[address] KEDAR MARY Facility:[facility] Start: 02-23-2021 End: 02-23-[address] SCHUYLER DESIR Facility:[facility] Start: 09-26-2019 End: 09-26-2019 Patient encounter procedure Rodolfo Ghazoul Work Phone: [facility] Comment on above: 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); [facility] Start: 02-28-2019 End: 02-28-2019 Patient encounter procedure Rodolfo Ghazoul Work Phone: [facility] Comment on above: 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); [facility] Start: 08-24-2017 Ambulatory RODOLFO GHAZOUL [facility] Start: 01-25-2017 Ambulatory RODOLFO GHAZOUL [facility] Procedures Date Procedure Procedure Detail Performing Clinician Start: 12-04-2022 X-ray of right foot DO Schuyler Desir Work Phone: Start: 08-19-2022 Colonoscopy DO Ericka Desir Work Phone: Start: 10-16-2021 Mammography Kylee Martinez on FIELD PIPELINES SUPERVISOR-S Work Phone: Start: 10-29-2020 Adult depression scr eening assessment Fernando Hanna MD Work Phone: Start: 11-18-2015 Pre-surgery evaluation Schuyler Desir Other Start: 11-18-2015 Preoperative cardiov ascular examination Schuyler Desir Other Depression screening Ericka Desir Other Plan of Treatment Date Care Activity Detail Author Start: 05-09-2026 [facility] Start: 05-10-2025 DIABETES SCREEN DIABETES SCREEN [facility] Start: 11-09-2024 DIABETES SCREEN DIABETES SCREEN [facility] Start: 02-09-2024 End: 02-09-2024 Patient encounter procedure 02/09/2024 2:00 PM EST Office Visit [facility] [address] [place] [address] Gunner Barrett MD [address] [place], [place] [id number] [facility] Start: 07-11-2023 End: 07-11-2023 Patient encounter procedure [facility] Start: 06-09-2023 End: 06-09-2023 Patient encounter procedure 06/09/2023 10:30 AM EDT Office Visit [facility] [address] [place] [address] Jojo Gonsalves, [address] [place] [address] [facility] Start: 05-09-2023 End: 05-09-2023 Social Work 05/09/2023 3:00 PM EST Social Work [facility] [address] [place] [address] Kylee Smith, FIELD PIPELINES SUPERVISOR-S [address] [place] [address] [facility] Start: 05-02-2023 End: 05-02-2023 Social Work [facility] Comment on above: Arrived Start: 04-25-2023 End: 04-25-2023 Social Work 04/25/2023 12:00 PM EST Social Work [facility] [address] [place] [address] Kylee Smith, FIELD PIPELINES SUPERVISOR-S [address] [place] [address] [facility] Start: 03-21-2023 Advance Directive Discussion Advance Directive Discussion [facility] Start: 03-21-2023 Depression Assessment Depression Ass essment [facility] Start: 02-16-2023 Covid-19 Vaccine ( season) Covid-19 Vaccine ( season) [facility] Start: 10-16-2022 Screening for malign ant neoplasm of breast [facility] Start: 08-19-2022 [facility] Start: 03-21-2022 ADVANCE DIRECTIVE DISCUSSION ADVANCE DIRECTIVE DISCUSSION [facility] Start: 03-21-2022 DEPRESSION ASSESSMENT DEPRESSION ASS ESSMENT [facility] Start: 11-19-2021 Influenza vaccination INFLUENZA (#1) [facility] Start: 10-29-2021 Adult depression screening assessment DEPRESSION SCREENING [facility] Start: 04-04-2021 COVID-19 VACCINE (4 - Booster for Pfizer series) COVID-19 VACCINE (4 - Booster for Pfizer series) [facility] Start: 03-21-2021 ADVANCE DIRECTIVE DISCUSSION ADVANCE DIRECTIVE DISCUSSION [facility] Start: 11-20-2019 Influenza vaccination INFLUENZA VACC INE (#1) [facility] Start: 11-19-2018 Influenza vaccination INFLUENZA VACC INE (#1) [facility] Start: 05-06-2018 Pneumococcal Vaccine : 65+ Years (2 - PCV) Pneumococcal Vaccine: 65+ Years (2 - PCV) [facility] Start: 05-06-2018 Pneumococcal Vaccine : 65+ Years (2 of 2 - PCV) Pneumococcal Vaccine: 65+ Years (2 of 2 - PCV) [facility] Start: 05-06-2018 PNEUMOCOCCAL: 65+ (2 - PCV) PNEUMOCOCCAL: 65+ (2 - PCV) [facility] Start: 2013 BONE DENSITY BONE DENSITY [facility] Start: 2013 Pneumococcal vaccination PNEUMOCOCCAL VACCINE SERIES (1 of 2 - PCV13) [facility] Start: 2013 Screening for osteoporosis Bone Density Screening [facility] Start: 03-22-2013 SHINGRIX VACCINE (1 of 2) SHINGRIX VACCINE (1 of 2) [facility] Start: 2008 RSV Vaccine (1 - 1-d ose 60+ series) RSV Vaccine (1 - 1-dose 60+ series) [facility] Start: 1998 Colonoscopy [facility] Start: 1998 Zoster vaccine hzv l nelida for subcutaneous use ZOSTER (SHINGLES) VACCINE (1 of 2) [facility] Start: 1993 COLOGUARD (FIT-DNA) COLOGUARD (FIT-D NA) [facility] Start: 1993 Colonoscopy COLONOSCOPY [facility] Start: 1993 COLORECTAL CANCER SCREENING COLORECTAL CANCER SCREENING [facility] Start: [address] COLONOGRAPHY [facility] Start: 1993 FECAL OCCULT BLOOD FECAL OCCULT BLOO D [facility] Start: 1993 Lipid panel Lipid Screening [facility] Start: 1993 LIPID SCREEN LIPID SCREEN [facility] Start: 1993 Screening for malign ant neoplasm of colon [facility] Start: 1993 SIGMOIDOSCOPY SIGMOIDOSCOPY [facility] Start: 1988 Fasting lipid profile LIPID SCREENIN G [facility] Start: 1988 Mammography MAMMOGRAM [facility] Start: 1988 Screening mammography MAMMOGRA M SCREENING DISCUSSION [facility] Start: 1969 Screening for malign ant neoplasm of cervix [facility] Start: 09-22-1967 Third diphtheria, tetanus and acellular pertussis (DTaP) vaccination TDAP (ADULT) [facility] Start: 09-22-1967 Urine microalbumin profile [facility] Start: 1966 HEPATITIS C SCREENING HEPATITIS C SC REENING [facility] Start: 1966 Hepatitis C screening Hepatitis C Sc ok [facility] Start: 1966 Tetanus vaccination [facility] Start: 1948 Hepatitis C antibody , confirmatory test HEPATITIS C VIRUS SCREENING [facility] Start: 1948 Screening for malign ant neoplasm of colon [facility] Start: 1948 Screening for osteoporosis DEXA SCAN DISCUSSION [facility] End: 05-10-2023 CBC W Auto Differential panel - Blood CBC + DIFF Lab Routine Chronic lymphocytic leukemia (HCC) Every 3 months for 4 Occurrences starting 05/10/2022 until 05/10/2023, 1 completed [facility] Work Phone: Comment on above: Every 3 months for 4 Occurrences starting 05/10/2022 until 05/10/2023, 1 completed CBC W Auto Different ial panel - Blood CBC + DIFF Lab Routine Chronic lymphocytic leukemia (HCC) 05/10/2022 9:01 AM EST [facility] Work Phone: End: 05-08-2024 CBC W Auto Differential panel - Blood CBC + DIFF Lab Routine Chronic lymphocytic leukemia (HCC) Every 6 months for 3 Occurrences starting 05/09/2023 until 05/08/2024 [facility] Work Phone: Comment on above: Every 6 months for 3 Occurrences starting 05/09/2023 until 05/08/2024 End: 05-10-2023 Comprehensive metabolic 2000 panel - Serum or Plasma COMP METABOLIC PANEL Lab Routine Chronic lymphocytic leukemia (HCC) Every 3 months for 4 Occurrences starting 05/10/2022 until 05/10/2023, 1 completed [facility] Work Phone: Comment on above: Every 3 months for 4 Occurrences starting 05/10/2022 until 05/10/2023, 1 completed End: 05-08-2024 Comprehensive metabolic 2000 panel - Serum or Plasma COMP METABOLIC PANEL Lab Routine Chronic lymphocytic leukemia (HCC) Every 6 months for 3 Occurrences starting 05/09/2023 until 05/08/2024 [facility] Work Phone: Comment on above: Every 6 months for 3 Occurrences starting 05/09/2023 until 05/08/2024 End: 05-10-2023 Lactate dehydrogenase [Enzymatic activity/volume] in Serum or Plasma LD LACTATE DEHYDRO Lab Routine Chronic lymphocytic leukemia (HCC) Every 3 months for 4 Occurrences starting 05/10/2022 until 05/10/2023, 1 completed [facility] Work Phone: Comment on above: Every 3 months for 4 Occurrences starting 05/10/2022 until 05/10/2023, 1 completed End: 05-08-2024 Lactate dehydrogenase [Enzymatic activity/volume] in Serum or Plasma LD LACTATE DEHYDRO Lab Routine Chronic lymphocytic leukemia (HCC) Every 6 months for 3 Occurrences starting 05/09/2023 until 05/08/2024 [facility] Work Phone: Comment on above: Every 6 months for 3 Occurrences starting 05/09/2023 until 05/08/2024 Patient Education Colon polyps H emorrhoids (DC) Diverticulosis (DC) [facility] Work Phone: End: 05-10-2023 Urate [Mass/volume] in Serum or Plasma URIC ACID BLOOD Lab Routine Chronic lymphocytic leukemia (HCC) Every 3 months for 4 Occurrences starting 05/10/2022 until 05/10/2023, 1 completed [facility] Work Phone: Comment on above: Every 3 months for 4 Occurrences starting 05/10/2022 until 05/10/2023, 1 completed [facility] Immunizations Immunization Date Immunization Notes Care Provider [facility] 12-14-2021 influenza, high dose seasonal, preservative-free Schuyler Desir Other [employer] [facility] Other 12-14-2021 influenza virus vaccine, split virus (incl. purified surface antigen) Schuyler Desir Other [employer] [facility] Other 12-14-2021 influenza virus vaccine, unspecified formulation [facility] 11-27-2021 COVID-19 Pfizer (bivalent) Schuyler Desir Other [place] [facility] 01-10-2021 COVID-19 vaccine, ag e 12+ yr ([employer] - PURPLE TOP) Fernando Hanna MD Work Phone: [facility] 12-17-2020 influenza virus vaccine, split virus (incl. purified surface antigen) Schuyler Desir Other [facility] Other 12-17-2020 influenza virus vaccine, unspecified formulation [facility] 12-17-2020 Seasonal trivalent influenza vaccine, adjuvanted, preservative free Fernando Hanna MD Work Phone: [facility] 05-14-2020 COVID-19 Vaccine Pfi zer - Documentation Purposes Only Schuyler Desir Other [facility] 04-23-2020 COVID-19 vaccine, ag e 12+ yr ([employer] - PURPLE TOP) Fernando Hanna MD Work Phone: [facility] 12-06-2019 influenza virus vaccine, split virus (incl. purified surface antigen) Schuyler Desir Other [facility] Other 12-06-2019 influenza virus vaccine, unspecified formulation [facility] 01-10-2019 influenza, high dose seasonal, preservative-free Feranndo Hanna MD Work Phone: [facility] 01-10-2019 influenza virus vaccine, unspecified formulation [facility] 02-01-2018 influenza, seasonal, injectable, preservative free Fernando Hanna MD Work Phone: [facility] 02-01-2018 influenza virus vaccine, unspecified formulation [facility] 01-09-2018 influenza virus vaccine, split virus (incl. purified surface antigen) Schuyler Desir Other [facility] Other 01-09-2018 influenza virus vaccine, unspecified formulation [facility] 01-09-2018 Seasonal trivalent influenza vaccine, adjuvanted, preservative free Fernando Hanna MD Work Phone: [facility] 05-06-2017 pneumococcal polysaccharide vaccine, 23 valent Fernando Hanna MD Work Phone: [facility] 01-06-2017 influenza virus vaccine, split virus (incl. purified surface antigen) Schuyler Desir Other [facility] Other 01-06-2017 influenza virus vaccine, unspecified formulation [facility] 01-06-2017 influenza, high dose seasonal, preservative-free Fernando Hanna MD Work Phone: [facility] 12-30-2015 influenza virus vaccine, split virus (incl. purified surface antigen) Schuyler Desir Other [facility] Other 12-30-2015 influenza virus vaccine, unspecified formulation [facility] 12-30-2015 influenza, high dose seasonal, preservative-free Fernando Hanna MD Work Phone: [facility] 01-02-2015 pneumococcal conjuga te vaccine, 13 valent Schuyler Desir Other [facility] 01-02-2015 pneumococcal Conjuga te, unspecified formulation; Translations: [Need for prophylactic vaccination against Streptococcus pneumoniae (pneumococcus)] Schuyler Desir Other [facility] Other 01-25-2013 zoster vaccine, live Fernando russell MD Work Phone: [facility] Payers Date Payer Category Payer Unknown PRE PAID ELECTIV E SELF PAY PRE PAID ELECTIVE SELF PAY [id number] 2017-Present [id number] 2017 Unknown PRE PAID ELECTIV E SELF PAY PRE PAID ELECTIVE SELF PAY xxxxxxxxx 2017-Present xxxxxxxxx [id number] 2014 Medicare [id number] [id number] 1959 Medicare [id number] 2.16.840.1.071141.19 1959 Medicare [id number] 1959 Medicare [id number] 1959 Self-pay 1950 Unknown [id number] 2.16.840.1.060882.3.579.2.593 1948 Unknown [id number] 2.840.1.438095.3.579.2.593 1948 Unknown [id number] 2..840.1.190502.3.579.2.593 1948 Unknown [id number] 2.840.1.423163.3.579.2.593 1948 Unknown [id number] 2.840.1.571613.3.579.2.593 1948 Unknown [id number] 2.840.1.135633.3.579.2.593 1948 Unknown [id number] 2.840.1.004363.3.579.2.593 1948 Unknown [id number] 2.840.1.471562.3.579.2.593 1948 Unknown [id number] 2.840.1.891327.3.579.2.593 1948 Unknown [id number] 2.16840.1.544722.3.579.2.1259 1948 Unknown [id number] 2.16.840.1.708372.3.579.2.1259 1948 Unknown [id number] 2.16.840.1.413749.3.579.2.1259 1948 Unknown [id number] 2.840.1.593908.3.579.2.1259 1948 Unknown [id number] 2.16.840.1.094295.3.579.2.125 1948 Unknown [id number] 2.16.840.1.980199.3.579.2.1258 1948 Unknown [id number] 2.16.840.1.727066.3.579.2.1258 1948 Unknown [id number] 2.16.840.1.931357.3.579.2.1258 1948 Unknown [id number] 2.16.840.1.952192.3.579.2.1258 1948 Unknown [id number] 2.16.840.1.914852.3.579.2.1258 1948 Unknown [id number] 2.16.840.1.142005.3.579.2.1258 1948 Unknown [id number] 2.16.840.1.795955.3.579.2.1258 1948 Unknown [id number] 2.16.840.1.473136.3.579.2.1258 1948 Unknown [id number] 2.16.840.1.542159.3.579.2.1258 1948 Unknown [id number] 2.16.840.1.098140.3.579.2.1258 1948 Unknown [id number] 2.16.840.1.230525.3.579.2.1258 1948 Unknown [id number] 2.16.840.1.286511.3.579.2.1258 1948 Unknown [id number] 2.16.840.1.011577.3.579.2.1258 1948 Unknown [id number] 2.16.840.1.472781.3.579.2.1258 1948 Unknown [id number] 2.16.840.1.288283.3.579.2.1258 1948 Unknown [id number] 2.16.840.1.971409.3.579.2.1259 1948 Unknown [id number] 2.16.840.1.836174.3.579.2.1259 Unknown [id number] 2.16.840.1.906392.3.579.2.593 Unknown [id number] 2.16.840.1.018023.3.579.2.531 Unknown [id number] 2.16.840.1.036714.3.579.2.531 Social History Date Type Detail Facility Start: 02-28-2019 End: 09-26-2019 Tobacco smoking status NJIS Light tobacco smoker [facility] History of tobacco use Cigarette Smoker [facility] Start: 09-26-2019 End: 11-08-2022 Cigarettes smoked current (pack per day) - Reported [facility] Start: 09-26-2019 End: 11-09-2021 Tobacco use and exposure Never used [facility] Start: 1950 Sex Assigned At Not on file [facility] Start: 11-08-2022 End: 02-03-2023 Sex Assigned At [facility] Start: 11-09-2021 Tobacco smoking stat us NJIS Ex-smoker [facility] History of tobacco use Current smoker [facility] History of tobacco use Passive smoker [facility] Start: 11-09-2021 End: 11-08-2022 Alcohol intake Current drinker of alcohol (finding) [facility] Start: 11-09-2021 Tobacco Comment Quit 10/2016 [facility] Start: 10-30-2021 End: 11-09-2021 Exposure to SARS-CoV-2 (event) Not sure [facility] Start: 08-19-2022 End: 02-03-2023 Tobacco smoking status NJIS Current some day smoker [facility] Start: 1950 Sex Assigned At [facility] Start: 04-24-2023 End: 04-29-2023 Alcohol intake Lifetime non-drinker (finding) [facility] Start: 01-22-2023 Alcohol Comment caffeine: 1-2 cups per day [facility] Adult Depression Screening Assessment 0 [facility] Goals Date Patient Goal Desired Activity /State Clinical Notes 04-13-2021 to 05-09-2023 Patient InstructionsFernando Hanna MD - 05/09/2023 10:00 AM ESTTelephone Encounter - JALEN Esposito-Radha - 05/05/2023 1:15 PM ESTTelephone Encounter - Radha Martinez - 04/26/2023 2:20 PM EST Note Date & Type Note Facility 05-09-2023 Note HNO ID: [id number] Author: FERNANDO HANNA MD Service: ? Author Type: Physician Type: Progress Notes Filed: 05/09/2023 18:22 Note Text: NAME: Nadeen Oquendo CLINIC NO.: [id number] DATE OF SERVICE: May 09, 2023 (Jaime) Some elements in this clinic note that are critical to medical decision making have been carefully reviewed and included from a prior clinic note dated: November 08, 2022 (Jaime) Referring Provider: Dr. Schuyler Desir Additional Clinicians involved in Nadeen Oquendo's care: CC: CLL diagnosed 2014. ASSESSMENT: Chronic lymphocytic leukemia (HCC) - ICD9: 204.10, ICD10: C91.90 Her counts remain stable and she is asymptomatic. We will continue to monitor her counts every 6 months and see her in follow up. IGVH Mutated FISH normal - intermediate risk. Getting screening CT's with Dr. Desir for high risk lung cancer. PLAN: Follow up in 6 months. Lab draw same day. Continue following with Dr. Desir HPI: CASE HISTORY: Reverse Chronological Order 2014 - Diagnosed with CLL Updated Visit, May 09, 2023: Ashley continues to do well but has occasional night sweats approximately once every 2 weeks. Quit smoking 6 years ago. Labs are stable. Getting CT's with Pulmonolgy. Updated Visit, November 08, 2022: Ashley is doing well. No changes with respect of CLL. No B symptoms. Labs stable. Updated Visit, May 10, 2022: Nadeen Oquendo returns for scheduled follow-up. Since her last visit there has been no significant medical changes. She is following with dermatology for rosacea. She denies fevers, chills, night sweats and signs/symptoms of infection. She denies any lumps or bumps. No unintentional weight loss. Overall, she is doing well. She offers no particular complaints today. No new issues, problems or concerns. Updated Visit, November 09, 2021: Ashley continues to do well and has no B symptoms. Labs reviewed and no indicators to treat. Updated Visit, May 11, 2021: Doing well no B symptoms. No lymphadenopathy and no change in labs. Updated Visit, October 29, 2020: Ashley is 70 yo and returns for follow of CLL. Contiunes asymptomatic observation. No B symptoms. Originally seen in 08/2014 for lymphocytosis. Updated Visit, April 30, 2020: Nadeen is 69 years old and returns in follow-up for CLL. She remains asymptomatic and labs are stable. 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 She only gets a little nervous when she comes here. She has no B symptoms. We discussed signs of progression and since she is a former smoker (she quit in 2016 after her passed) I wanted her to be wary of any supraclavicular or low cervical nodes that may pop up. She'll need these evaluated sooner. Updated Visit, October 31, 2019: Naeden is 69 years old and returns in follow-up for CLL. She remains asymptomatic and labs are stable. She complains that she has had a left sided sore throat for 1 day. She will either call us or her primary care physician if this does not resolve in the next week. 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 Updated Visit, June 29, 2019: Nadeen Oquendo is a 68 year old female who presents in follow up. She denies any fevers, chills, night sweats, weight loss or enlarged lymph nodes. Quit smoking 4 years ago after her , having no problems a little swelling in her left ankle but she remembered breaking the leg a long time ago. Her blood count looks stable today with a WBC of 19.27. She still does not have any treatment indications. REVIEW OF SYSTEMS Per HPI and otherwise negative by full review of organ systems. ECOG PERFORMANCE STATUS: 0 PHYSICAL EXAMINATION: Vitals: BP 140/73 Pulse 65 Temp (Src) 98 (Temporal) Resp 16 Ht 5' 9.016 (1.75m) Wt 135 lb 12.9 oz (61.6kg) SpO2 99% BMI 20.05 kg/(m2). Body surface area is 1.73 meters squared. Exam limited to gross visualization where appropriate. Gen.: This is an age-appropriate patient in no acute distress. Head: Appears atraumatic with no visible lesions. Eyes: Pupils equally round and reactive to light, extraocular muscles are intact. Neck: Supple. Respiratory: Appears to be respiring comfortably. Neurologic: Nonfocal to gross visualization. Alert and oriented ?3. Psychiatric: No evidence of inappropriate anxiety or depression. Skin: Visible areas of skin without rash, lesions, wounds or petechiae. ALLERGIES: ALLERGIES Allergen Reactions Bee Venom Protein (* Unknown MEDICATIONS: busPIRone (BUSPAR) 15 mg tablet TAKE 1 (more content not included)... [facility] 05-09-2023 Instructions Fernando Hanna MD - 05/09/2023 10:25 AM EST Follow up in 6 months. Lab draw same day. documented in this encounter [facility] 05-09-2023 History of Presen t illness Narrative Images from the original note were not included. NAME: Nadeen Oquendo CLINIC NO.: [id number] DATE OF SERVICE: May 09, 2023 (Jaime) Some elements in this clinic note that are critical to medical decision making have been carefully reviewed and included from a prior clinic note dated: November 08, 2022 (Jaime) Referring Provider: Dr. Schuyler Desir Additional Clinicians involved in Nadeen Oquendo's care: CC: CLL diagnosed 2014. ASSESSMENT: Chronic lymphocytic leukemia (HCC) - ICD9: 204.10, ICD10: C91.90 Her counts remain stable and she is asymptomatic. We will continue to monitor her counts every 6 months and see her in follow up. IGVH Mutated FISH normal - intermediate risk. Getting screening CT's with Dr. Desir for high risk lung cancer. PLAN: Follow up in 6 months. Lab draw same day. Continue following with Dr. Desir HPI: CASE HISTORY: Reverse Chronological Order 2014 - Diagnosed with CLL Updated Visit, May 09, 2023: Ashley continues to do well but has occasional night sweats approximately once every 2 weeks. Quit smoking 6 years ago. Labs are stable. Getting CT's with Pulmonolgy. Updated Visit, November 08, 2022: Ashley is doing well. No changes with respect of CLL. No B symptoms. Labs stable. Updated Visit, May 10, 2022: Nadeen Oquendo returns for scheduled follow-up. Since her last visit there has been no significant medical changes. She is following with dermatology for rosacea. She denies fevers, chills, night sweats and signs/symptoms of infection. She denies any lumps or bumps. No unintentional weight loss. Overall, she is doing well. She offers no particular complaints today. No new issues, problems or concerns. Updated Visit, November 09, 2021: Ashley continues to do well and has no B symptoms. Labs reviewed and no indicators to treat. Updated Visit, May 11, 2021: Doing well no B symptoms. No lymphadenopathy and no change in labs. Updated Visit, October 29, 2020: Ashley is 70 yo and returns for follow of CLL. Contiunes asymptomatic observation. No B symptoms. Originally seen in 08/2014 for lymphocytosis. Updated Visit, April 30, 2020: Nadeen is 69 years old and returns in follow-up for CLL. She remains asymptomatic and labs are stable. 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 She only gets a little nervous when she comes here. She has no B symptoms. We discussed signs of progression and since she is a former smoker (she quit in 2016 after her passed) I wanted her to be wary of any supraclavicular or low cervical nodes that may pop up. She'll need these evaluated sooner. Updated Visit, October 31, 2019: Nadeen is 69 years old and returns in follow-up for CLL. She remains asymptomatic and labs are stable. She complains that she has had a left sided sore throat for 1 day. She will either call us or her primary care physician if this does not resolve in the next week. 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 Updated Visit, June 29, 2019: Nadeen Oquendo is a 68 year old female who presents in follow up. She denies any fevers, chills, night sweats, weight loss or enlarged lymph nodes. Quit smoking 4 years ago after her , having no problems a little swelling in her left ankle but she remembered breaking the leg a long time ago. Her blood count looks stable today with a WBC of 19.27. She still does not have any treatment indications. REVIEW OF SYSTEMS Per HPI and otherwise negative by full review of organ systems. ECOG PERFORMANCE STATUS: 0 PHYSICAL EXAMINATION: Vitals: BP 140/73 Pulse 65 Temp (Src) 98 (Temporal) Resp 16 Ht 5' 9.016 (1.75m) Wt 135 lb 12.9 oz (61.6kg) SpO2 99% BMI 20.05 kg/(m^2). Body surface area is 1.73 meters squared. Exam limited to gross visualization where appropriate. Gen.: This is an age-appropriate patient in no acute distress. Head: Appears atraumatic with no visible lesions. Eyes: Pupils equally round and reactive to light, extraocular muscles are intact. Neck: Supple. Respiratory: Appears to be respiring comfortably. Neurologic: Nonfocal to gross visualization. Alert and oriented 3. Psychiatric: No evidence of inappropriate anxiety or depression. Skin: Visible areas of skin without rash, lesions, wounds or petechiae. ALLERGIES: ALLERGIES Allergen Reactions Bee Venom Protein (* Unknown MEDICATIONS: busPIRone (BUSPAR) 15 mg tablet TAKE 1 TABLET EVERY DAY FOR THE FIRST WEEK THEN INCREASE TO TWICE A DAY Omeprazole 40 mg capsule Take 40 mg by mouth. fexofenadine (SHAKIRA) 180 mg tablet Take 180 mg by mouth once daily. nadolol (CORGARD) 40 mg tablet Take 80 mg by mouth once daily. ALPRAZolam (XANAX) 0.25 mg tablet Take 0.25 mg by mouth once daily. Take 1 tab in AM and 1/2 tab in the afternoon citalopram (CELEXA) 20 mg tablet Take 40 mg by mouth once daily. LABORATORY VALUES: WBC (k/uL) Date Value 05/09/2023 24.93 (H) RBC (m/uL) Date Value 05/09/2023 4.48 Hemoglobin (g/dL) Date Value 05/09/2023 14.4 Hematocrit (%) Date Value 05/09/2023 42.7 MCV (fL) Date Value 05/09/2023 95.3 MCH (pg) Date Value 05/09/2023 32.1 MCHC (g/dL) Date Value 05/09/2023 33.7 RDW-CV (%) Date Value 05/09/2023 13.1 Platelet Count (k/uL) Date Value 05/09/2023 228 MPV (fL) Date Value 05/09/2023 9.9 Glucose (mg/dL) Date Value 05/09/2023 98 BUN (mg/dL) Date Value 05/09/2023 13 Creatinine (mg/dL) Date Value 05/09/2023 0.80 Sodium (mmol/L) Date Value 05/09/2023 138 Potassium (mmol/L) Date Value 05/09/2023 5.0 Chloride (mmol/L) Date Value 05/09/2023 103 CO2 (mmol/L) Date Value 05/09/2023 25 Protein, Total (g/dL) Date Value 05/09/2023 6.7 Albumin (g/dL) Date Value 05/09/2023 4.8 Calcium, Total (mg/dL) Date Value 05/09/2023 9.8 Alkaline Phosphatase (U/L) Date Value 05/09/2023 80 Bilirubin, Total (mg/dL) Date Value 05/09/2023 0.4 AST (U/L) Date Value 05/09/2023 17 ALT (U/L) Date Value 05/09/2023 12 DIAGNOSIS: (C91.10) Chronic lymphocytic leukemia (HCC) (primary encounter diagnosis) Plan: LD LACTATE DEHYDRO, CBC + DIFF, COMP METABOLIC PANEL PAST MEDICAL HISTORY Diagnosis Date Anxiety CLL (chronic lymphocytic leukaemia) GERD (gastroesophageal reflux disease) Osteopenia PAST SURGICAL HISTORY Procedure Laterality Date COLONOSCOPY EGD LAPAROSC PARTIAL NEPHRECTOMY left Social History Tobacco Use Smoking status: Former Packs/day: .5 Types: Cigarettes Passive exposure: Past Smokeless tobacco: Never Tobacco comments: Quit 10/2016 Vaping Use Vaping Use: Never used Substance Use Topics Alcohol use: Yes Drug use: No No family history on file. I spent a total of 20 minutes on the date of service which included preparing to see the patient, [id number] patient care, completing clinical documentation, performing a medically appropriate examination, counseling and educating the patient/family/caregiver, ordering medications, tests, or procedures, independently interpreting results (not separately reported), communicating results to the patient/family/caregiver, and care coordination (not separately reported). Fernando Hanna MD, CPE [facility]ology [facility] On[facility] Services Provided at: [place], [place] CC: Schuyler Desir MD [address] [facility] [id number] documented in this encounter [facility] 05-05-2023 Telephone encounter Note Late entry: 04/26/2023 2:20pm SW returned phone call to Jenn at Dr. Desir's office. Pt had informed SW at last appointment that they wanted to talk with SW prior to prescribing Pt anxiety medication, and gave verbal permission for SW to talk with her PCP's office. Jenn is aware that Pt has an initial appointment scheduled to see caretaker grounds, [place]oacano Carrizales, in June for medication management for pt's anxiety. BRYSON explained to Jenn that medication management is out of SW's scope of practice and simply shared that pt was reporting that her PRN Xanax was not effective at alleviating her anxiety symptoms and sw was concerned about pt having to wait till June to get some relief. Jenn shared that she would share this information with Dr. Desir and they would contact pt informing her of what Dr. Desir decides to do with her medication. [facility] Work Phone: 05-05-2023 Miscellaneous Notes Late entry: 04/26/2023 2:20pm SW returned phone call to Jenn at Dr. Desir's office. Pt had informed SW at last appointment that they wanted to talk with SW prior to prescribing Pt anxiety medication, and gave verbal permission for SW to talk with her PCP's office. Jenn is aware that Pt has an initial appointment scheduled to see caretaker grounds, [place]oacano Carrizales, in June for medication management for pt's anxiety. SW explained to Jenn that medication management is out of BRYSON's scope of practice and simply shared that pt was reporting that her PRN Xanax was not effective at alleviating her anxiety symptoms and sw was concerned about pt having to wait till June to get some relief. Jenn shared that she would share this information with Dr. Desir and they would contact pt informing her of what Dr. Desir decides to do with her medication. Dr. Annette Sierra nurse called and would like to speak to Kylee Rosales regarding a mutual patient Nadeen Oquendo 1950 ( to call her back she said p. [phone] and push option 1 let them know that you're trying to reach Dr. Annette Sierra and they'll send you to her, this afternoon they have a light schedule. (lunch 12:30-1pm) ) documented in this encounter [facility] 04-26-[address] Annette Sierra nurse called and would like to speak to Kylee Rosales regarding a mutual patient Nadeen Oquendo 1950 ( to call her back she said p. [phone] and push option 1 let them know that you're trying to reach Dr. Annette Sierra and they'll send you to her, this afternoon they have a light schedule. (lunch 12:30-1pm) ) [facility] 04-26-2023 Evaluation note Encounter Date Diagnosis Assessment Notes Apr, LEO (generalized anxiety disorder) (ICD-10 - F41.1) [facility] Other 01-31-2024 Evaluation note* Encounter Date Diagnosis Assessment Notes Treatment Notes Treatment Clinical Notes Mar, Simple chronic bronchitis (ICD-10 - J41.0) Her post infectious coughing has dramatically improved. She denies CP or dyspnea Continue to monitor, continue exercise Mar, LEO (generalized anxiety disorder) (ICD-10 - F41.1) SSRI max dose w/ intermittent use of XAnax not beneficial. Continue medication and consider augmenting w/ Seroquel, Gabapentin etc Continue Counseling w/ planned appt w/ Psychiatrist Mar, Intermittent palpitations (ICD-10 - R00.2) Worsens w/ anxiety but controlled w/ BB. Avoid stimulants, decrease caffeine intake [facility] Other 12-15-2023 Evaluation note* Encounter Date Diagnosis Assessment Notes Treatment Notes Treatment Clinical Notes Feb, Cardiomegaly (ICD-10 - I51.7) Feb, Persistent cough (ICD-10 - R05.3) Feb, Dyspnea on exertion (ICD-10 - R06.09) [facility] Other 12-14-2023 Evaluation note* Encounter Date Diagnosis Assessment Notes Treatment Notes Treatment Clinical Notes Feb, Cardiomegaly (ICD-10 - I51.7) Feb, Persistent cough (ICD-10 - R05.3) Feb, Dyspnea on exertion (ICD-10 - R06.09) [facility] Other 12-11-2023 Evaluation note* Encounter Date Diagnosis Assessment Notes Treatment Notes Treatment Clinical Notes Feb, Chronic obstructive pulmonary disease with (acute) exacerbation (ICD-10 - J44.1) [facility] Other 12-08-2023 Evaluation note* Encounter Date Diagnosis Assessment Notes Treatment Notes Treatment Clinical Notes Feb, Chronic obstructive pulmonary disease with (acute) lower respiratory infection (ICD-10 - J44.0) Instructed to use Robitussin or Mucinex for cough, saline or Flonase NS for congestion, Tylenol for pain and fever. Initiated antibiotics for pneumonia and check CXR if fails to improve Feb, Chronic obstructive pulmonary disease with (acute) exacerbation (ICD-10 - J44.1) Instructed to use ALFONSO every 4 hours as needed for cough and wheezing. Instructed on cough and deep breathing exercises. Push fluids. 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 Keep active. 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 Discussed augmenting Celexa for breakthrough mood swings. Refer for counseling. [facility] Other 11-13-2023 Evaluation note* Encounter Date Diagnosis Assessment Notes Treatment Notes Treatment Clinical Notes Jan, Simple chronic bronchitis (ICD-10 - J41.0) [facility] Other 10-25-2023 Evaluation note* Encounter Date Diagnosis Assessment Notes Treatment Notes Treatment Clinical Notes Dec, Bee sting, accidental or unintentional, initial encounter (ICD-10 - T63.441A) Cleanse area w/ soap and water. Ice to RUE qid. Elevate hand above elbow to avoid hand/fingers swelling Dec, Allergic reaction, initial encounter (ICD-10 - T78.40XA) Benadryl at HS. CLaritin q am. Topical crms not beneficial [facility] Other 09-29-2023 Evaluation note* Encounter Date Diagnosis Assessment Notes Treatment Notes Treatment Clinical Notes Nov, Sprain of other ligament of right ankle, initial encounter (ICD-10 - S93.491A) ROM exercises, ice/heat and Tylenol Voltaren Gel qid Use pain as guideline XR but unlikely to be fx [facility] Other 09-16-2023 Evaluation note* Encounter Date Diagnosis Assessment Notes Treatment Notes Treatment Clinical Notes Nov, Right foot pain (ICD-10 - M79.671) Nov, Sprain of right foot, initial encounter (ICD-10 - S93.601A) Foot sprain home care material was printed, Foot sprain home care material was printed, Drink plenty fluids, get plenty of rest. Ice and elevate your foot 2-3 times a day. Take ibuprofen as needed for pain and swelling. Follow-up with your family physician if no improvement in 2 to 3 days [facility] Other 08-21-2023 NoteHNO ID: [id number] Author: Fernando Hanna MD Service: ? Author Type: Physician Type: Progress Notes Filed: 11/08/2022 12:52 PM Note Text: NAME: Nadeen Oquendo [facility] NO.: [id number] DATE OF SERVICE: November 08, 2022 (Jaime) Some elements in this clinic note that are critical to medical decision making have been carefully reviewed and included from a prior clinic note dated: May 11, 2022 (Douglas) AND November 09, 2021 (Jaime) Referring Provider: Dr. Schuyler Desir Additional Clinicians involved in Nadeen Oquendo's care: CC: CLL diagnosed 2014. ASSESSMENT: Chronic lymphocytic leukemia (HCC) - ICD9: 204.10, ICD10: C91.90 Her counts remain stable and she is asymptomatic. We will continue to monitor her counts every 6 months and see her in follow up. IGVH Mutated FISH normal - intermediate risk. PLAN: Follow up in 6 months. Lab draw same day. HPI: Nadeen Oquendo returns for scheduled follow-up. Since her last visit there has been no significant medical changes. She is following with dermatology for rosacea. She denies fevers, chills, night sweats and signs/symptoms of infection. She denies any lumps or bumps. No unintentional weight loss. Overall, she is doing well. She offers no particular complaints today. No new issues, problems or concerns. Updated Visit, November 08, 2022: Ashley is doing well. No changes with respect of CLL. No B symptoms. Labs stable. Updated Visit, November 09, 2021: Ashley continues to do well and has no B symptoms. Labs reviewed and no indicators to treat. Updated Visit, May 11, 2021: Doing well no B symptoms. No lymphadenopathy and no change in labs. Updated Visit, October 29, 2020: Ashley is 70 yo and returns for follow of CLL. Contiunes asymptomatic observation. No B symptoms. Originally seen in 08/2014 for lymphocytosis. Updated Visit, April 30, 2020: Nadeen is 69 years old and returns in follow-up for CLL. She remains asymptomatic and labs are stable. 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 She only gets a little nervous when she comes here. She has no B symptoms. We discussed signs of progression and since she is a former smoker (she quit in 2016 after her passed) I wanted her to be wary of any supraclavicular or low cervical nodes that may pop up. She'll need these evaluated sooner. Updated Visit, October 31, 2019: Nadeen is 69 years old and returns in follow-up for CLL. She remains asymptomatic and labs are stable. She complains that she has had a left sided sore throat for 1 day. She will either call us or her primary care physician if this does not resolve in the next week. 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 Updated Visit, June 29, 2019: Nadeen Oquendo is a 68 year old female who presents in follow up. She denies any fevers, chills, night sweats, weight loss or enlarged lymph nodes. Quit smoking 4 years ago after her , having no problems a little swelling in her left ankle but she remembered breaking the leg a long time ago. Her blood count looks stable today with a WBC of 19.27. She still does not have any treatment indications. REVIEW OF SYSTEMS Per HPI and otherwise negative by full review of organ systems. ECOG PERFORMANCE STATUS: 0 PHYSICAL EXAMINATION: Vitals: BP 118/54 Pulse 65 Temp (Src) 97.4 (Temporal) Resp 16 Ht 5' 9.016 (1.75m) Wt 138 lb 6.4 oz (62.8kg) SpO2 100% BMI 20.43 kg/(m2). Body surface area is 1.75 meters squared. Exam limited to gross visualization where appropriate. Gen.: This is an age-appropriate patient in no acute distress. Head: Appears atraumatic with no visible lesions. Eyes: Pupils equally round and reactive to light, extraocular muscles are intact. Neck: Supple. Respiratory: Appears to be respiring comfortably. Neurologic: Nonfocal to gross visualization. Alert and oriented ?3. Psychiatric: No evidence of inappropriate anxiety or depression. Skin: Visible areas of skin without rash, lesions, wounds or petechiae. ALLERGIES: ALLERGIES Allergen Reactions Bee Venom Protein (* Unknown MEDICATIONS: Omeprazole 40 mg capsule Take 40 mg by mouth. fexofenadine (SHAKIRA) 180 mg tablet Take 180 mg by mouth once daily. nadolol (CORGARD) 40 mg tablet Take 80 mg by mouth once daily. ALPRAZolam (XANAX) 0.25 mg tablet Take 0.25 mg by mouth once daily. Take 1 tab in AM and 1/2 tab in the afternoon citalopram (CELEXA) 20 mg tablet Take 40 mg by mouth once daily. LABORATORY VALUES: WBC (k/uL) Date Value 11/08/2022 22.70 (H) RBC (m/uL) Date Value 11/08/2022 4.35 Hemoglobin (g/dL) Date Value 11/08/2022 13.7 Hematocrit (%) Date Value 11/08/2022 41.2 MCV (fL) Date Value 11/08/2022 94.7 MCH (pg) Date Value 11/08/2022 31.5 MCHC (g/dL) Date Value 11/08/2022 33.3 RDW-CV (%) Date Value 11/08/2022 13.0 Platelet Count (k/uL) Date Va (more content not included)...[facility]* Encounter Date Diagnosis Assessment Notes Treatment Notes Treatment Clinical Notes Jun, Medicare annual wellness visit, subsequent (ICD-10 - Z00.00) Personalized health advice was given to the beneficiary including a written plan for screenings discussed and provided. Advanced care planning reviewed and/or information given as requested. Additional counseling was provided here today in regards to, [ ]. The above visit was performed by [ ], under direct supervision of [ ]. Document reviewed and amended by provider signed below. Jun, LEO (generalized anxiety disorder) (ICD-10 - F41.1) Healthy diet and exercise Coping w/ present treatment, no change necessary Jun, Chronic lymphatic leukemia (ICD-10 - C91.10) Stable w/o treatment, f/u Hematology Jun, Depression, major, recurrent, mild (ICD-10 - F33.0) Stable w/ treatment Healthy diet, exercise and keep active Jun, Simple chronic bronchitis (ICD-10 - J41.0) Symptoms minimal, no inhalers necessary, no ER visits for AECOPD Jun, Pulmonary nodule (ICD-10 - R91.1) Yearly LDCT Jun, Cigarette nicotine dependence in remission (ICD-10 - F17.211) Continue abstinence Jun, History of colon polyps (ICD-10 - Z86.010) Planning screening colonoscopy Jun, Encounter for screening for lung cancer (ICD-10 - Z12.2) LDCT in September, Syn[facility] Other 03-08-2023 Evaluation note* Encounter Date Diagnosis Assessment Notes Treatment Notes Treatment Clinical Notes May, Chronic idiopathic constipation (ICD-10 - K59.04) May, Hemorrhoids (ICD-10 - K64.9) Synfora Other 02-20-2023 History of Present illness Narrative* Citlaly Cole APRN.[employer] - 05/10/2022 9:23 AM EST Images from the original note were not included. NAME: Nadeen Oquendo CLINIC NO.: [id number] DATE OF SERVICE: May 11, 2022 Some elements in this clinic note that are critical to medical decision making have been carefully reviewed and included from a prior clinic note dated: November 09, 2021. Referring Provider: Dr. Schuyler Desir Additional Clinicians involved in Nadeen Oquendo's care: CC: CLL diagnosed 2014. ASSESSMENT: Chronic lymphocytic leukemia (HCC) - ICD9: 204.10, ICD10: C91.90 Her counts remain stable and she is asymptomatic. We will continue to monitor her counts every 6 months and see her in follow up. IGVH Mutated FISH normal - intermediate risk. PLAN: 1. Follow up in 6 months. 2. Lab draw same day. HPI: Nadeen Oquendo returns for scheduled follow-up. Since her last visit there has been no significant medical changes. She is following with dermatology for rosacea. She denies fevers, chills, night sweats and signs/symptoms of infection. She denies any lumps or bumps. No unintentional weight loss.Overall, she is doing well. She offers no particular complaints today. No new issues, problems or concerns. Updated Visit, November 09, 2021: Ashley continues to do well and has no B symptoms. Labs reviewed and no indicators to treat. Updated Visit, May 11, 2021: Doing well no B symptoms. No lymphadenopathy and no change in labs. Updated Visit, October 29, 2020: Ashley is 70 yo and returns for follow of CLL. Contiunes asymptomatic observation. No B symptoms. Originally seen in 08/2014 for lymphocytosis. Updated Visit, April 30, 2020: Nadeen is 69 years old and returns in follow-up for CLL. She remains asymptomatic and labs are stable. 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 She only gets a little nervous when shecomes here. She has no B symptoms. We discussed signs of progression and since she is a former smoker (she quit in 2016 after her passed) I wanted her to be wary of any supraclavicular or low cervical nodes that may pop up. She'll need these evaluated sooner. Updated Visit, October 31, 2019: Nadeen is 69 years old and returns in follow-up for CLL. She remains asymptomatic and labs are stable. She complains that she has had a left sided sore throat for 1 day. She will either call us or her primary care physician if this does not resolve in the next week. 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 Updated Visit, June 29, 2019: Nadeen Oquendo is a 68 year old female who presents in follow up. She denies any fevers, chills,night sweats, weight loss or enlarged lymph nodes. Quit smoking 4 years ago after her ,having no problems a little swelling in her left ankle but she remembered breaking the leg a long time ago. Her blood count looks stable today with a WBC of 19.27. She still does not have any treatment indications. REVIEW OF SYSTEMS Per HPI and otherwise negative by full review of organ systems. ECOG PERFORMANCE STATUS: 0 PHYSICAL EXAMINATION: Vitals: BP 132/78 Pulse 67 Temp (Src) 98.7 (Temporal) Resp 16 Ht 5' 9.016 (1.75m) Wt 136lb (61.7kg) SpO2 100% BMI 20.07 kg/(m^2). Body surface area is 1.73 meters squared. Exam limited to gross visualization where appropriate due to COVID-19. Gen.: This is an age-appropriate patient in no acute distress. Head: Appears atraumatic with no visible lesions. Eyes: Pupils equally round and reactive to light, extraocular muscles are intact. Neck: Supple. Mouth: Mucous membranes appeared to be moist. Respiratory: Appears to be respiring comfortably. Neurologic: Nonfocal to gross visualization. Alert and oriented 3. Psychiatric: No evidence of inappropriate anxiety or depression. Skin: Visible areas of skin without rash, lesions, wounds or petechiae. ALLERGIES: ALLERGIES Allergen Reactions Bee Venom Protein (* Unknown MEDICATIONS: Omeprazole 40 mg capsule Take 40 mg by mouth. fexofenadine (SHAKIRA) 180 mg tablet Take 180 mg by mouth once daily. nadolol (CORGARD) 40 mg tablet Take 80 mg by mouth once daily. ALPRAZolam (XANAX) 0.25 mg tablet Take 0.25 mg by mouth once daily. Take 1 tab in AM and 1/2 tab inthe afternoon citalopram (CELEXA) 20 mg tablet Take 40 mg by mouth once daily. fluconazole (DIFLUCAN) 100 mg tablet Take 100 mg by mouth once daily. (Patient not taking: No sig reported) fluticasone (FLONASE) 50 mcg/actuation nasal spray SPRAY 1 SPRAY INTO EACH NOSTRIL EVERY DAY (Patient not taking: No sig reported) nabumetone (RELAFEN) 500 mg tablet Take 500 mg by mouth twice daily with meals. (Patient not taking: No sig reported) pantoprazole DR (PROTONIX) 20 mg tablet (Patient not taking: No sig reported) valACYclovir (VALTREX) 1 gram tab TAKE 1 TABLET BY MOUTH TWICE A DAY FOR 10 DAYS (Patient not taking: No sig reported) terconazole vaginal cream (TERAZOL) 0.8 % vaginal cream USE 1 APPLICATORFUL VAGINALLY AT BEDTIME FOR 3 DAYS (Patient not taking: No sig reported) LABORATORY VALUES: Hemoglobin (g/dL) Date Value 05/10/2022 14.4 05/11/2021 13.1 Hematocrit (%) Date Value 05/10/2022 43.6 05/11/2021 38.8 WBC (k/uL) Date Value 05/10/2022 22.33 05/11/2021 20.98 Platelet Count (k/uL) Date Value 05/10/2022 198 05/11/2021 205 DIAGNOSIS: (C91.10) Chronic lymphocytic leukemia (HCC) (primary encounter diagnosis) PAST MEDICAL HISTORY Diagnosis Date Anxiety CLL (chronic lymphocytic leukaemia) GERD (gastroesophageal reflux disease) Osteopenia PAST SURGICAL HISTORY Procedure Laterality Date COLONOSCOPY EGD LAPAROSC PARTIAL NEPHRECTOMY left Social History Tobacco Use Smoking status: Former Packs/day: 0.50 Types: Cigarettes Passive exposure: Past Smokeless tobacco: Never Tobacco comments: Quit 10/2016 Vaping Use Vaping Use: Never used Substance Use Topics Alcohol use: Yes Drug use: No No family history on file. Citlaly Cole APRN.[place], [place] CC: Schuyler Desir MD [address] [facility] [id number] I spent a total of 20 minutes on the date of the service which included preparing to see the patient, impi-hn-wkex patient care, completing clinical documentation, obtaining and/or reviewing separately obtained history, performing a medically appropriate examination, counseling and educating the pat ient/family/caregiver, ordering medications, tests, or procedures, independently interpreting results (not separately reported), and communicating results to the patient/family/caregiver. documented in this encounterCos[facility]02-[facility]23 Miscellaneous Notes* Telephone Encounter - Kimberly Coker Ma - 05/07/2022 2:50 PM EST Lab orders for appointment on 05/10/22 Kimberly Coker Ma documented in this encounterCoshocton [facility]10-09-2022 Evaluation note* Encounter Date Diagnosis Assessment Notes Treatment Notes Treatment Clinical Notes Dec, Contact dermatitis, unspecified contact dermatitis type, unspecified trigger (ICD-10 - L25.9) Unsure of what is causing reaction; it is often the case with rashes and reactions. OTC Zyrtec may help with symptoms. Recommend using unscented sensitive skin products for a few weeks as system will be more sensitive than normal. Recommend follow up with primary care provider or dermatology if rash does not clear with treatment. Use medication as directed and take with food to prevent stomach upset. Synfora Other [id number] Instructions* Patient Instructions* Fernando Hanna MD - 11/09/2021 9:37 AM EDT 1. RTC 6 months 2. Lab draw same day. documented in this encounterCoshocton [facility]08-22-2022 History of Present illness Narrative* Fernando Hanna MD - 11/09/2021 9:30 AM EDT Images from the original note were not included. NAME: Nadeen Oquendo CLINIC NO.: [id number] DATE OF SERVICE: November 09, 2021 Some elements in this clinic note that are critical to medical decision making have been carefully reviewed and included from a prior clinic note dated: May 11, 2021 Referring Provider: Schuyler Desir Additional Clinicians involved in Nadeen Oquendo's care: CC: CLL diagnosed 2014 ASSESSMENT: Chronic lymphocytic leukemia (HCC) - ICD9: 204.10, ICD10: C91.90 Her counts remain stable and she is asymptomatic. We will continue to monitor her counts every 6 months and see her in follow up. IGVH Mutated FISH normal - intermediate risk. PLAN: 1. RTC 6 months 2. Lab draw same day. HPI Updated Visit, November 09, 2021: Ashley continues to do well and has no B symptoms. Labs reviewed and no indicators to treat. Updated Visit, May 11, 2021: Doing well no B symptoms. No lymphadenopathy and no change in labs. Updated Visit, October 29, 2020: Ashley is 70 yo and returns for follow of CLL. Contiunes asymptomatic observation. No B symptoms. Originally seen in 08/2014 for lymphocytosis. Updated Visit, April 30, 2020: Nadeen is 69 years old and returns in follow-up for CLL. She remains asymptomatic and labs are stable. 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 She only gets a little nervous when shecomes here. She has no B symptoms. We discussed signs of progression and since she is a former smoker (she quit in 2016 after her passed) I wanted her to be wary of any supraclavicular or low cervical nodes that may pop up. She'll need these evaluated sooner. Updated Visit, October 31, 2019: Nadeen is 69 years old and returns in follow-up for CLL. She remains asymptomatic and labs are stable. She complains that she has had a left sided sore throat for 1 day. She will either call us or her primary care physician if this does not resolve in the next week. 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 Updated Visit, June 29, 2019: Nadeen Oquendo is a 68 year old female who presents in follow up. She denies any fevers, chills,night sweats, weight loss or enlarged lymph nodes. Quit smoking 4 years ago after her ,having no problems a little swelling in her left ankle but she remembered breaking the leg a long time ago. Her blood count looks stable today with a WBC of 19.27. She still does not have any treatment indications. REVIEW OF SYSTEMS Per HPI and otherwise negative by full review of organ systems. ECOG PERFORMANCE STATUS: 0 PHYSICAL EXAMINATION: Vitals: BP 136/68 Pulse 67 Temp (Src) 97.4 (Temporal) Resp 16 Ht 5' 9.016 (1.75m) Wt 139lb 9.6 oz (63.3kg) SpO2 98% BMI 20.61 kg/(m^2). Body surface area is 1.76 meters squared. Exam limited to gross visualization where appropriate due to COVID-19. Gen.: This is an age-appropriate patient in no acute distress. Head: Appears atraumatic with no visible lesions. Eyes: Pupils equally round and reactive to light, extraocular muscles are intact. Neck: Supple. Mouth: Mucous membranes appeared to be moist. Respiratory: Appears to be respiring comfortably. Neurologic: Nonfocal to gross visualization. Alert and oriented 3. Psychiatric: No evidence of inappropriate anxiety or depression. Skin: Visible areas of skin without rash, lesions, wounds or petechiae. ALLERGIES: ALLERGIES Allergen Reactions Bee Venom Protein (* Unknown MEDICATIONS: fluconazole (DIFLUCAN) 100 mg tablet Take 100 mg by mouth once daily. fluticasone (FLONASE) 50 mcg/actuation nasal spray SPRAY 1 SPRAY INTO EACH NOSTRIL EVERY DAY nabumetone (RELAFEN) 500 mg tablet Take 500 mg by mouth twice daily with meals. pantoprazole DR (PROTONIX) 20 mg tablet valACYclovir (VALTREX) 1 gram tab TAKE 1 TABLET BY MOUTH TWICE A DAY FOR 10 DAYS terconazole vaginal cream (TERAZOL) 0.8 % vaginal cream USE 1 APPLICATORFUL VAGINALLY AT BEDTIME FOR 3 DAYS Omeprazole 40 mg capsule Take 40 mg by mouth. fexofenadine (SHAKIRA ALLERGY) 180 mg tablet Take 180 mg by mouth once daily. nadolol (CORGARD) 40 mg tablet Take 80 mg by mouth once daily. ALPRAZolam (XANAX) 0.25 mg tablet Take 0.25 mg by mouth once daily. Take 1 tab in AM and 1/2 tab inthe afternoon citalopram (CELEXA) 20 mg tablet Take 40 mg by mouth once daily. LABORATORY VALUES: WBC (k/uL) Date Value 11/09/2021 25.59 (H) RBC (m/uL) Date Value 11/09/2021 4.39 Hemoglobin (g/dL) Date Value 11/09/2021 13.7 Hematocrit (%) Date Value 11/09/2021 41.7 MCV (fL) Date Value 11/09/2021 95.0 MCH (pg) Date Value 11/09/2021 31.2 MCHC (g/dL) Date Value 11/09/2021 32.9 RDW-CV (%) Date Value 11/09/2021 13.8 Platelet Count (k/uL) Date Value 11/09/2021 191 MPV (fL) Date Value 11/09/2021 9.2 Glucose (mg/dL) Date Value 11/09/2021 85 BUN (mg/dL) Date Value 11/09/2021 9 Creatinine (mg/dL) Date Value 11/09/2021 0.81 Sodium (mmol/L) Date Value 11/09/2021 135 (L) Potassium (mmol/L) Date Value 11/09/2021 4.6 Chloride (mmol/L) Date Value 11/09/2021 101 CO2 (mmol/L) Date Value 11/09/2021 26 Protein, Total (g/dL) Date Value 11/09/2021 6.3 Albumin (g/dL) Date Value 11/09/2021 4.5 Calcium, Total (mg/dL) Date Value 11/09/2021 9.6 Alkaline Phosphatase (U/L) Date Value 11/09/2021 73 Bilirubin, Total (mg/dL) Date Value 11/09/2021 0.3 AST (U/L) Date Value 11/09/2021 16 ALT (U/L) Date Value 11/09/2021 11 DIAGNOSIS: (C91.10) Chronic lymphocytic leukemia (HCC) (primary encounter diagnosis) PAST MEDICAL HISTORY Diagnosis Date Anxiety CLL (chronic lymphocytic leukaemia) GERD (gastroesophageal reflux disease) Osteopenia PAST SURGICAL HISTORY Procedure Laterality Date COLONOSCOPY EGD LAPAROSC PARTIAL NEPHRECTOMY left Social History Tobacco Use Smoking status: Former Packs/day: 0.50 Types: Cigarettes Smokeless tobacco: Never Tobacco comments: Quit 10/2016 Vaping Use Vaping Use: Never used Substance Use Topics Alcohol use: Yes Drug use: No No family history on file. I spent a total of 20 minutes on the date of the service which included preparing to see the patient, phyv-sq-epaj patient care, completing clinical documentation, performing a medically appropriate examination, and ordering medications, tests, or procedures. Fernando Hanna MD, [place], [place] CC: Schuyler Desir MD [address] [place] [address] documented in this encounterCoshocton [facility]02-10-2022 NoteHISTORY AND PHYSICAL EXAMINATION HISTORY: The patient is a 70 year-old white female who states having difficulty seeing at nighttime while driving. She has difficulty seeing road signs at a distance and she has difficulty with headlights creating glare and halos. PAST OCULAR HISTORY: Cataracts. PAST MEDICAL HISTORY: 1. CLL. 2. Partial nephrectomy for a spot that was nonmalignant. 3. Mitral valve prolapse. 4. Anxiety. SOCIAL HISTORY: Drinks occasionally. Denies tobacco or recreational drug abuse. SYSTEMIC MEDICATIONS: Pantoprazole, nadolol, citalopram and alprazolam. ALLERGIES: Denies. REVIEW OF SYSTEMS: No pertinent positives. PHYSICAL EXAM: VITALS:Blood pressure is measured at 118/56 with a respiration rate of 12 and a pulse of 63. GENERAL: The patient is awake, alert and oriented x3, well-developed, well-nourished, in no acute distress. HEART:Regular rate and rhythm. LUNGS:Clear bilaterally. ABDOMEN:Soft, nontender, nondistended. EXTREMITIES: No pitting edema. OPHTHALMIC EXAM: Revealed a visual acuity of 20/50 -2 that glared to 20/100 in the right eye and 20/100 -1 that glared 20/200 in the left eye. Pupils motility, muscle balance and confrontational visual rausch within normal limits bilaterally. Pressures are measured at 16 bilaterally. Slit lamp exam revealed blepharitis with a severe decrease in tear film bilaterally. Conjunctiva, cornea, anterior chamber and iris were within normal limits bilaterally. Lens status demonstrated a 2+ nuclear sclerosis with 2+ cortical changes in the right eye and 2+ nuclear sclerosis with 3+ cortical changes in the left eye. FUNDUS EXAM: Revealed good view with good dilation bilaterally. Optic discs, macula, vessels, periphery and vitreous were within normal limits bilaterally. ASSESSMENT / PLAN: 1. Visually significant cataract, left eye. After risks, benefits, alternatives, as well as expectations were delivered to the patient, she would like to go forward with cataract removal. She understands those risks to include, but not limited to infection, bleeding, loss of vision or loss of the eye itself. Secondly, she understands that postoperatively she is likely required to require spectacle correction for her best visual acuity. Thirdly, a complete ophthalmic exam was performed, there is not determined to be any other source of recent decline other than that of the cataract. 2. COVID-19, the patient was briefed in the office and consented for elective cataract surgery in the setting of the pandemic of coronavirus. She understands that she's at a heightened risk going into a hospital setting, however, feels that her activities of daily living are severe enough depleted by her cataracts that she is willing to incur this risk and go forward with her elective procedure. [facility] Signed and Approved by: RIVERA GIBBONS 04/27/2021 13:25:00[facility]02-10-2022 NoteOPERATIVE NOTE OPERATION DATE: 03-26-21 ANESTHETIC: Topical. PREOPERATIVE DIAGNOSIS: Nuclear sclerotic cataract of the left eye. POSTOPERATIVE DIAGNOSIS:Same. PROCEDURE NAME:Cataract extraction with intraocular lens placement for the left eye. ESTIMATED BLOOD LOSS: Zero. COMPLICATIONS: None. PROCEDURE: The patient was brought to the Operating Room in the supine position. After proper identification, the left eye was prepped and draped in the sterile ophthalmic fashion. Several drops of tetracaine were placed on the surface of the eye and a paracentesis created at the 5 o'clock position. Approximately 0.1 mL of 1% Xylocaine was injected into the anterior chamber followed by Amvisc Plus. Using a 2.6 mm Keratome blade a clear corneal incision was created at the 3 o'clock limbus. A cystotome was then utilized to begin a curvilinear capsulorrhexis that was continued for 360 degrees with Utrata forceps. BSS on a 26 gauge cannula was injected beneath the anterior capsule to hydrodissect as well as hydrodelineate the lens. After ensuring mobility, phaco emulsification was performed in a conquer and divide type fashion. After all nuclear material had been removed from the eye, IA was introduced and all residual cortical material was cleaned up. Additional Amvisc Plus was injected into the posterior bag and a lens model MX60 22.0 diopters was injected and dialed into position. After ensuring centration, IA was reintroduced into the anterior chamber and all residual Amvisc Plus was removed from the eye. BSS on a 30 gauge cannula was injected into the stroma of both the clear corneal incision as well as the paracentesis to hydrate the wounds. Additional BSS was injected into the anterior chamber to pressurize the eye to approximately 20-22 mmHg by finger tension, 0.1 mL of antibiotic was injected into the anterior chamber and [facility] cell sponge was used to check the wounds to be water tight. One drop of apraclonidine and 1 drop of prednisolone acetate were placed into the eye and shield was placed over top. The patient was sent to the postoperative area in satisfactory condition to followup the following day for postoperative care. [facility] Signed and Approved by: RIVERA GIBBONS 04/27/2021 13:24:00[facility]02-10-2022 NoteOP Note 03/26/2021 SURGEON: Rivera Gibbons D.O. PREOPERATIVE DIAGNOSIS: Nuclear sclerotic cataract left eye. POSTOPERATIVE DIAGNOSIS: Nuclear sclerotic cataract left eye. PROCEDURE NAME: Cataract extraction with intraocular lens placement of the left eye. ANESTHESIA: Topical. ESTIMATED BLOOD LOSS: Zero. COMPLICATIONS: None. PROCEDURE: The patient was brought to the Operating Room in supine position. After proper identification, the right eye was prepped and draped in a sterile ophthalmic fashion. Paracentesis created at the 11 o'clock position. Approximately 1 mL of unpreserved Xylocaine was injected into the anterior chamber followed by Amvisc Plus. Using a 2.6 mm Keratome blade, a clear corneal incision was created at the 3 o'clock limbus. A cystotome was then used to begin a curvilinear capsulorrhexis that was continued for 360 degrees with the Utrata forceps. BSS on a 26 gauge cannula was injected beneath the anterior capsule to hydrodissect as well as hydrodelineate the lens. After ensuring mobility, phacoemulsification was performed in a [id number]-type fashion. After all nuclear material had been removed from the eye, IA was introduced and all residual cortical material was cleaned up. Additional Amvisc Plus was injected into the posterior bag and a lens model MX60, 22.0 diopters was injected and dialed into position. After ensuring centration, IA was reintroduced into the anterior chamber and all residual Amvisc Plus was removed from the eye. BSS on a 30 gauge cannula was injected into the stroma of both the clear corneal incision as well as paracentesis to hydrate the wounds. Additional BSS was injected into the anterior chamber to pressurize the eye at approximately 20 to 22 mmHg by finger tension. 0.1 mL of antibiotic was injected into the anterior chamber. Weck-Elen sponges were used to check the wounds to be watertight. One drop of Apraclonidine and one drop prednisolone acetate were placed into the eye and a shield was placed over top. The patient was sent to the postoperative area in satisfactory condition to follow up the following day for postoperative care.[id number] NotePre-Op History and Physical HISTORY: Patient is a 70-year-old white female with complaints of declining vision out of her right eye. The onset of this has been gradual over the last two years, but more noticeably changing over the last six months. Out of this eye, she feels more uncomfortable with driving at night time with glare and halos, becoming more difficult to navigate. She also states having difficulty seeing the road signs at a distance. Finally, she states having difficulty reading. PAST OCULAR HISTORY / PAST MEDICAL HISTORY / SOCIAL HISTORY / MEDICATIONS / ALLERGIES TO MEDICATIONS / REVIEW OF SYSTEMS / PHYSICAL EXAMINATION: Unchanged from previously dictated. ASSESSMENT/PLAN: 1. Visually significant cataract, right eye. After the risks, benefits, and alternatives as well as expectations were delivered to the patient, she elected to go forward with cataract removal. She understands those risks to include but not limited to infection, bleeding, loss of vision or loss of the eye itself. Secondly, she understands that postoperatively she is likely to require spectacle correction for her best visual acuity. Finally, a complete ophthalmic exam was performed and there was not determined to be any other source of vision decline other than that of cataract. 2. [id number] patient was briefed in the office and consented for elective cataract surgery in the setting of the pandemic of coronavirus. She understands that she is at a heightened risk of going into a hospital setting, however, feels that her activities of daily living are severely enough depleted by her cataracts that she is willing to incur this risk and go forward with this elective procedure. [facility] Signed and Approved by: RIVERA GIBBONS 05/27/2021 16:29:00[facility]02-10-2022 NoteOP Note DATE OF SERVICE: 04/30/2021 SURGEON: Rivera Gibbons D.O. PREOPERATIVE DIAGNOSIS: Nuclear sclerotic cataract right eye. POSTOPERATIVE DIAGNOSIS: Nuclear sclerotic cataract right eye. PROCEDURE NAME: Cataract extraction with intraocular lens placement of the right eye. ANESTHESIA: Topical. ESTIMATED BLOOD LOSS: Zero. COMPLICATIONS: None. PROCEDURE: The patient was brought to the Operating Room in supine position. After proper identification, the right eye was prepped and draped in a sterile ophthalmic fashion. Paracentesis created at the 11 o'clock position. Approximately 1 cc of unpreserved Xylocaine was injected into the anterior chamber followed by Amvisc Plus. Using a 2.6 mm Keratome blade, a clear corneal incision was created at the 9 o'clock limbus. A cystotome was then used to begin a curvilinear capsulorrhexis that was continued for 360 degrees with the Utrata forceps. BSS on a 26 gauge cannula was injected beneath the anterior capsule to hydrodissect as well as hydrodelineate the lens. After ensuring mobility, phacoemulsification was performed in a [id number]-gyu-jdwoti-type fashion. After all nuclear material had been removed from the eye, IA was introduced and all residual cortical material was cleaned up. Additional Amvisc Plus was injected into the posterior bag and a lens model MX60, 21.0 diopters was injected and dialed into position. After ensuring centration, IA was reintroduced into the anterior chamber and all residual Amvisc Plus was removed from the eye. BSS on a 30 gauge cannula was injected into the stroma of both the clear corneal incision as well as paracentesis to hydrate the wounds. Additional BSS was injected into the anterior chamber to pressurize the eye at approximately 20 to 22 mmHg by finger tension. 0.1 cc of antibiotic was Injected into the anterior chamber and a Weck-Elen sponge was used to check the wound was watertight. One drop of Apraclonidine and prednisolone acetate were placed into the eye and a shield was placed over top. The patient was sent to the postoperative area in satisfactory condition to follow up the following day for postoperative care. [facility] Signed and Approved by: RIVERA GIBBONS 05/27/2021 16:29:00[facility]02-10-2022 NoteNAME: Chaka Oquendo#: [id number] DATE OF : 1950MEDICAL REC#: [id number] FURNITURE RESTORER: Carmen SoriaADMIT DATE: [employer] SENIOR OFFICER DATE: 05/02/2021 12:42:54 pmDICTATING PHYSICIAN: Rivera Gibbons DICTATION DATE: 04/29/2021 12:45:24 pm Pre-Op History and Physical HISTORY: Patient is a 70-year-old white female with complaints of declining vision out of her right eye. The onset of this has been gradual over the last two years, but more noticeably changing over the last six months. Out of this eye, she feels more uncomfortable with driving at night time with glare and halos, becoming more difficult to navigate. She also states having difficulty seeing the road signs at a distance. Finally, she states having difficulty reading. PAST OCULAR HISTORY / PAST MEDICAL HISTORY / SOCIAL HISTORY / MEDICATIONS / ALLERGIES TO MEDICATIONS / REVIEW OF SYSTEMS / PHYSICAL EXAMINATION: Unchanged from previously dictated. ASSESSMENT/PLAN: 1. Visually significant cataract, right eye. After the risks, benefits, and alternatives as well as expectations were delivered to the patient, she elected to go forward with cataract removal. She understands those risks to include but not limited to infection, bleeding, loss of vision or loss of the eye itself. Secondly, she understands that postoperatively she is likely to require spectacle correction for her best visual acuity. Finally, a complete ophthalmic exam was performed and there was not determined to be any other source of vision decline other than that of cataract. 2. [id number] patient was briefed in the office and consented for elective cataract surgery in the setting of the pandemic of coronavirus. She understands that she is at a heightened risk of going into a hospital setting, however, feels that her activities of daily living are severely enough depleted by her cataracts that she is willing to incur this risk and go forward with this elective procedure.[id number] Evaluation note* Encounter Date Diagnosis Assessment Notes Treatment Notes Treatment Clinical Notes Mar, Hemorrhoids (ICD-10 - K64.9) START ANUSOL HC CREAM BID Mar, Chronic idiopathic constipation (ICD-10 - K59.04) Mar, History of colon polyps (ICD-10 - Z86.010) REPEAT COLONOSCOPY Mar, Other CONTINUE SENOKO T S AT BEDTIME [facility] VIOSO Other Evaluation note* Diagnosis Chronic lymphocytic leukemia (HCC)- Primary Chronic lymphoid leukemia, without mention of having achieved remission documented in this encounter [facility] note* Diagnosis Chronic lymphocytic leukemia (HCC)- Primary Chronic lymphoid leukemia, without mention of having achieved remission documented in this encounter [facility] note* Diagnosis Chronic lymphocytic leukemia (HCC)- Primary Chronic lymphoid leukemia, without mention of having achieved remission documented in this encounter [facility] Other Evaluation noteNo assessment information available [facility] Work Phone: Evaluation note* Diagnosis Onset Date Resolution Status Ankle sprain acute Cryptic tonsil acute RLS (restless legs syndrome) acute Chronic bronchitis acute LEO (generalized anxiety disorder) acute GERD (gastroesophageal reflux disease) acute Major depression acute Medicare annual wellness visit, subsequent noneactive [facility] Work Phone: Evaluation note* Author William Hirsch [facility] Authored October 19, 2023 9:59 am Patient notes ongoing consti pation, patient notes some evening satiety but otherwise GI symptoms are entirely absent [facility] Work Phone: History and physical note Author Jake Mireles [facility] August 19, 2022 8:02am Note Date/Time August 19, 2022 8:02a m [facility] [address] [place] [address] Gastroenterology H&P Signed Patient: Nadeen Oquendo MR#: [id number] : 1950 Acct:[id number] Age/Sex: 71 / F Adm Date: 3 Loc: Room: Type: [facility] Attending Dr: Jake Mireles MD Copies to: DO Jake Botello MD~ Date of Service: 08/19/2022 HISTORY & PHYSICAL: Patient's history with special attention to the cardiovascular, pulmonary systems and the current problem was reviewed with the patient immediately prior to the procedure. Present medications and doses reviewed in the EMR. Allergies and pertinent laboratory tests were also reviewedat this time in the EMR. The physical examination, as below, was then performed. Indication, assessment and HPI: 71-year-old female presents for screening colonoscopy Family history of GI malignancy? Yes, family history of colorectal cancer PHYSICAL EXAMINATION Mouth and Pharynx : Moist mucus membranes, normal dentition Cardiac: Regular rate, regular rhythm Pulmonary: Clear to auscultation bilaterally, no wheezing Neurological: Alert and oriented x3, no focal deficits noted Abdomen: Abdomen soft, non-tender REVIEW OF SYSTEMS Constitutional: Denies malaise, fevers Cardiovascular: Denies chest pain, palpitations Respiratory: Denies shortness of breath, wheezing Gastrointestinal: Per HPI Genitourinary: Denies dysuria, polyuria Musculoskeletal: Denies joint swelling, joint stiffness Neurological: Denies numbness, tingling Integumentary: Denies rashes, skin lesions Endocrine: Denies fatigue, weight loss Written informed consent obtained from the patient. Risks (including but not limited to perforation, infection, bloating, bleeding, need for emergent surgeryand loss of life), benefits and alternatives explained and questions answered. The patient verbalized understanding. Based on history patient is an appropriate candidate for the procedure. Jake Mireles MD Documented By: Jake Mireles MD 08/19/22 08 Signed By: <Electronically signed by Jake Mireles MD> 08/19/22 0802 [facility] Work Phone: History general Narrative - Reported* Type Description Date Medical History Constipation - functional Medical History Chronic lymphatic leukemia Medical History MVP (mitral valve prolapse) Medical History Gastroesophageal ref lux disease, esophagitis presence not specified Medical History Anxiety Surgical History LEFT KIDNEY (SPOT REMOVED) Surgical History eye surgery [facility] Other History general Narrative - Reported* Type Description Date Medical History Constipation - functional Medical History Chronic lymphatic leukemia Medical History MVP (mitral valve prolapse) Medical History Gastroesophageal ref lux disease, esophagitis presence not specified Medical History Anxiety Medical History Paresthesias Medical History Depression, major, recurrent, mi ld Medical History Encounter for screening for lung cancer Medical History Temporal mandibular joint disord er Medical History Intermittent palpitations Medical History Chronic obstructive pulmonary disease with (acute) exacerbation Medical History Osteopenia of right hip Medical History Osteopenia of left hip Medical History Chronic lymphatic leukemia Medical History LEO (generalized anxiety disorde r) Medical History Right foot strain, initial encou nter Medical History Concussion without l oss of consciousness, initial encounter Medical History Pruritic intertrigo Medical History Tinea corporis Medical History Cigarette nicotine dependence in remission Medical History Contusion of sacrum, initial enc ounter Medical History Contusion of scalp, subsequent e ncounter Medical History Pulmonary nodule Medical History COPD with acute lower respirator y infection Medical History Mass of mouth Medical History Neck pain, musculoskeletal Medical History Cervical spondylosis Medical History Angiomyolipoma of left kidney Surgical History LEFT KIDNEY (SPOT REMOVED) Surgical History right cataract extraction Surgical History left cataract extraction 04/27/21 Hospitalization History see surgical history [facility] Other [employer] Interventional general Narrative - Reported* Type Description Date Medical History Constipation - functional Medical History Chronic lymphatic leukemia Medical History MVP (mitral valve prolapse) Medical History Gastroesophageal ref lux disease, esophagitis presence not specified Medical History Anxiety Medical History Paresthesias Medical History Depression, major, recurrent, mi ld Medical History Encounter for screening for lung cancer Medical History Temporal mandibular joint disord er Medical History Intermittent palpitations Medical History Chronic obstructive pulmonary disease with (acute) exacerbation Medical History Osteopenia of right hip Medical History Osteopenia of left hip Medical History Chronic lymphatic leukemia Medical History LEO (generalized anxiety disorde r) Medical History Right foot strain, initial encou nter Medical History Concussion without l oss of consciousness, initial encounter Medical History Pruritic intertrigo Medical History Tinea corporis Medical History Cigarette nicotine dependence in remission Medical History Contusion of sacrum, initial enc ounter Medical History Contusion of scalp, subsequent e ncounter Medical History Pulmonary nodule Medical History COPD with acute lower respirator y infection Medical History Mass of mouth Medical History Neck pain, musculoskeletal Medical History Cervical spondylosis Medical History Angiomyolipoma of left kidney Surgical History LEFT KIDNEY (SPOT REMOVED) Surgical History right cataract extraction Surgical History left cataract extraction 04/27/21 Surgical History Colonoscopy w/ polypectomy, rep eat 5 years 08/2022 Hospitalization History see surgical history [facility] Other Hospital Discharge instructions Additional Instructions DISCHARGE INSTRUCTIONS FOR COLONOSCOPY WHAT TO EXPECT: - You may feel full, gassy or cramping after your procedure. In some cases, this may be from a few hours to a day. Walking may help relieve the discomfort. - If you have polyp(s) removed you may note some minor bloody discharge after your first bowel movements. - You should begin to recover from anesthesia within 1 hour of the procedure, however may feel groggy for the next 24 hours. DO's AND DON'Ts: - Call your doctor right away if you have a hard abdomen, severe pain, are passing lots of bright red blood or clots. - Call your doctor if you develop any rashes, hives or difficulty breathing. - Let your doctor know if you have not had a bowel movement by 3 days after your procedure. - If you take 81 mg aspirin for your heart it is safe to resume this medication. - If you take other blood thinner medications your doctor will instruct you when these can safely be resumed. - Do NOT drive for 24 hours. - Do NOT operate machinery such as power tools, lawn mowers, snow blowers, sewing machines, etc. for 24 hours. - Avoid alcoholic beverages and drugs for allergies, nerves, or sleep. - Do NOT stay alone. Do NOT leave your child unattended. - Do NOT make important personal or business decisions or sign any legal documents. - Eat solid foods and drink liquids in smaller amounts than usual until normal appetite returns. If you should experience an upset stomach, liquids high in sugar content (soda, Johnny-Aid, non-acid juices) are recommended. - You can resume normal activities tomorrow. FOLLOW UP & RECOMMENDATIONS: -Follow-up with the GI office yearly for your constipation -Notify the doctor if you have any problems. -Repeat colonoscopy in 5 years. -Follow up with PCP. -Office number [phone].[facility] Work Phone: Reason for referral (narrative)* Reason Referral for child guidance counselor ing Diagnosis 1 LEO (generalized anx iety disorder) (F41.1) Referral Organization [facility] Referring Provider First Name Schuyler Referring Provider Last Name Yen Referring Provider Specialty Internal Me dicine Referred Organization [facility] Referred Provider Yi Le Referred Address ,[place], [place],[address] Referred Provider Specialty Psychiatry Referral Priority Routine General Notes Patient being referr ed for counseling for LEO and depression. [facility] Other Summary Purpose Family History Relationship Condition Age at Onset Recorded Date/T michelle father Lymphoma Unknown brother Malignant neoplasm of brain Unknown brother Malignant neoplasm of colon Unknown Relationship Condition Age at Onset Recorded Date/T michelle father Lymphoma Unknown brother Malignant neoplasm of brain Unknown brother Malignant neoplasm of colon Unknown brother Malignant neoplasm Unknown Unknown father Unknown Malignant neoplasm Unknown Not Specified Unknown Relationship Condition Age at Onset Recorded Date/T michelle brother Malignant neoplasm of brain Unknown Malignant neoplasm of colon Unknown Unknown father Unknown Malignant neoplasm Unknown Lymphoma Unknown Not Specified Unknown Relationship Condition Age at Onset Recorded Date/T michelle brother Malignant neoplasm of brain Unknown Malignant neoplasm of colon Unknown Unknown father Unknown Malignant neoplasm Unknown Lymphoma Unknown mother Unknown Advance Directives Advance Directive Response Recorded Date/ Time Advance Directives No April 13, 2017 12:48pm History of Present Illness * Rodolfo Ross MD - 09/26/2019 1:15 PM EDT Subjective: Nadeen Oquendo is an 69 y.o. female who presents for evaluation of facial wrinkles. Her last Botoxinjection was January/2019. No Known Allergies Current Outpatient Medications Medication Sig Dispense Refill ALPRAZolam 0.25 MG Tab tablet TAKE 1/2 TO 1 TABLET BY MOUTH EVERY 6 HOURS NEEDED FOR ANXIETY ANDRESTLESS LEGS 5 Citalopram Hydrobromide (CELEXA PO) Celexa; take 1 tablet by oral route every day. nadolol (CORGARD) 80 MG Tab take 80 mg by mouth daily. omeprazole (PRILOSEC) [address] take 40 mg by mouth daily. Before a meal No current facility-administered medications for this visit. Past Medical History: Diagnosis Date Chronic lymphocytic leukemia Depression MVP (mitral valve prolapse) Past Surgical History: Procedure Laterality Date BLEPHAROPLASTY LOWER LID Bilateral 12/08/2015 OTHER SURGICAL 2009 removed spot on left kidney-benign Family History Problem Relation Age of Onset Colon Cancer Brother Social History Socioeconomic History Marital status: Spouse name: Not on file Number of children: Not on file Years of education: Not on file Highest education level: Not on file Occupational History Not on file Social Needs Financial resource strain: Not on file Food insecurity Worry: Not on file Inability: Not on file Transportation needs Medical: Not on file Non-medical: Not on file Tobacco Use Smoking status: Light Tobacco Smoker Packs/day: 0.25 Types: Cigarettes Smokeless tobacco: Never Used Substance and Sexual Activity Alcohol use: Not on file Drug use: Not on file Sexual activity: Not on file Lifestyle Physical activity Days per week: Not on file Minutes per session: Not on file Stress: Not on file Relationships Social connections Talks on phone: Not on file Gets together: Not on file Attends tenriism service: Not on file Active member of club or organization: Not on file Attends meetings of clubs or organizations: Not on file Relationship status: Not on file Intimate partner violence Fear of current or ex partner: Not on file Emotionally abused: Not on file Physically abused: Not on file Forced sexual activity: Not on file Other Topics Concern Not on file Social History Narrative Not on file Review of Systems Pertinent items are noted in HPI. General Plastics Review of Systems: Do you have any of the following: Chills, Fatigue, Fever or Night Sweats: no. Ear pain or eye discharge: no. Hearing loss or visual changes: no. Sore throat or chronic cough: no. Shortness of breath: no. Chest pain, swelling, or heart palpitations: no. Abdominal pain: no. Constipation or diarrhea: no. Heartburn or Nausea: no. Rash or skin problems: yes. Dizziness or numbness: no. Headaches or Migraines: no. Seizures: no. Joint pain, joint swelling or muscle weakness: no. Bruise or bleed easily: no. Any swollen lymph nodes: no. Objective: BP 140/84 (BP Location: Right arm, BP Position: Sitting) Pulse 61 Temp 96.9 F (36.1 C) (Temporal) Wt 63 kg (139 lb) BMI 20.53 kg/m Smoking Status Light Tobacco Smoker Glabella wrinkles as well as crows feet area. Solar damaged skin Assessment: Facial wrinkles Plan: The procedure of Botox INJECTION was reviewed with the patient including the risks and alternativesof treatment. After prepping the skin with alcohol, 20* (units) were injected in the following areas: Glabella and crows feet. Pressure was applied to prevent hematoma. The patient tolerated the procedure well. They area encouraged to call with any problems or questions. * Jaymie Trivedi - 09/26/2019 1:15 PM EDT General Plastics Review of Systems: Do you have any of the following: Chills, Fatigue, Fever or Night Sweats: no. Ear pain or eye discharge: no. Hearing loss or visual changes: no. Sore throat or chronic cough: no. Shortness of breath: no. Chest pain, swelling, or heart palpitations: no. Abdominal pain: no. Constipation or diarrhea: no. Heartburn or Nausea: no. Rash or skin problems: yes. Dizziness or numbness: no. Headaches or Migraines: no. Seizures: no. Joint pain, joint swelling or muscle weakness: no. Bruise or bleed easily: no. Any swollen lymph nodes: no. documented in this encounter* Rodolfo Ross MD - 02/28/2019 10:15 AM EST Subjective: Nadeen Oquendo is an 68 y.o. female who presents for evaluation of facial wrinkles. She is interested in having Restylane for her lower face today.. No Known Allergies Current Outpatient Medications Medication Sig Dispense Refill ALPRAZolam 0.25 MG Tab tablet TAKE 1/2 TO 1 TABLET BY MOUTH EVERY 6 HOURS NEEDED FOR ANXIETY ANDRESTLESS LEGS 5 Citalopram Hydrobromide (CELEXA PO) Celexa; take 1 tablet by oral route every day. nadolol (CORGARD) 80 MG Tab take 80 mg by mouth daily. omeprazole (PRILOSEC) [address] take 40 mg by mouth daily. Before a meal No current facility-administered medications for this visit. Past Medical History: Diagnosis Date Chronic lymphocytic leukemia Depression MVP (mitral valve prolapse) Past Surgical History: Procedure Laterality Date BLEPHAROPLASTY LOWER LID Bilateral 12/08/2015 OTHER SURGICAL 2009 removed spot on left kidney-benign Family History Problem Relation Age of Onset Colon Cancer Brother Social History Socioeconomic History Marital status: Spouse name: Not on file Number of children: Not on file Years of education: Not on file Highest education level: Not on file Occupational History Not on file Social Needs Financial resource strain: Not on file Food insecurity: Worry: Not on file Inability: Not on file Transportation needs: Medical: Not on file Non-medical: Not on file Tobacco Use Smoking status: Light Tobacco Smoker Packs/day: 0.25 Types: Cigarettes Smokeless tobacco: Never Used Substance and Sexual Activity Alcohol use: Not on file Drug use: Not on file Sexual activity: Not on file Lifestyle Physical activity: Days per week: Not on file Minutes per session: Not on file Stress: Not on file Relationships Social connections: Talks on phone: Not on file Gets together: Not on file Attends tenriism service: Not on file Active member of club or organization: Not on file Attends meetings of clubs or organizations: Not on file Relationship status: Not on file Intimate partner violence: Fear of current or ex partner: Not on file Emotionally abused: Not on file Physically abused: Not on file Forced sexual activity: Not on file Other Topics Concern Not on file Social History Narrative Not on file Review of Systems Pertinent items are noted in HPI. General Plastics Review of Systems: Do you have any of the following: Chills, Fatigue, Fever or Night Sweats: no. Ear pain or eye discharge: no. Hearing loss or visual changes: no. Sore throat or chronic cough: no. Shortness of breath: no. Chest pain, swelling, or heart palpitations: no. Abdominal pain: no. Constipation or diarrhea: no. Heartburn or Nausea: no. Rash or skin problems: no. Dizziness or numbness: no. Headaches or Migraines: no. Seizures: no. Joint pain, joint swelling or muscle weakness: no. Bruise or bleed easily: no. Any swollen lymph nodes: no. Objective: Blood pressure 118/79, pulse 67, height 1.753 m (5' 9 ). Perioral and marionette lines. rhytides of lower NL folds Assessment: Patient for Restylane injection I also briefly reviewed laser resurfacing but she is not ready to consider this at this time Plan: The procedure of Restylane INJECTION was reviewed with the patient including the risks and alternatives of treatment. After prepping the skin with alcohol, 1* (ml) were injected in the following areas: Corners of the mouth, marionette lines, vertical perioral lines, lower NL folds. Pressure was applied to prevent hematoma. The patient tolerated the procedure well. They area encouraged to call with any problems or questions. * Jaymie Trivedi - 02/28/2019 10:15 AM EST General Plastics Review of Systems: Do you have any of the following: Chills, Fatigue, Fever or Night Sweats: no. Ear pain or eye discharge: no. Hearing loss or visual changes: no. Sore throat or chronic cough: no. Shortness of breath: no. Chest pain, swelling, or heart palpitations: no. Abdominal pain: no. Constipation or diarrhea: no. Heartburn or Nausea: no. Rash or skin problems: no. Dizziness or numbness: no. Headaches or Migraines: no. Seizures: no. Joint pain, joint swelling or muscle weakness: no. Bruise or bleed easily: no. Any swollen lymph nodes: no. documented in this encounter Assessments Diagnosis Intrinsic aging of facial skin Other symptoms involving skin and integumentary tissues Rhytides Other specified hypertrophic and atrophic condition of skin Diagnosis Intrinsic aging of facial skin- Primary Other symptoms involving skin and integumentary tissues Rhytides Other specified hypertrophic and atrophic condition of skin Chief Complaint and Reason for Visit Chief Complaint Constipation Chief Complaint Anxiety Amb Documentation restless legs, hurt ankle, raw throat Chief Complaint Amb Documentation restless legs, hurt ankle, raw throat nerve medication discussion Reason for Visit Ankle sprain Cryptic tonsil RLS (restless legs syndrome) Chronic bronchitis LEO (generalized anxiety disorder) GERD (gastroesophageal reflux disease) Major depression Medicare annual wellness visit, subsequent Chief Complaint nerve medication dis cussion 1 yr follow up/ constipation Reason for Visit Chronic bronchitis LEO (generalized anxiety disorder) GERD (gastroesophageal reflux disease) Major depression Medicare annual wellness visit, subsequent Screening mammogram for breast cancer Constipation GERD (gastroesophageal reflux disease) Additional Source Comments INFORMATION SOURCE (unrecogn ized section and content) DATE CREATED AUTHOR 09/06/2017 [facility] DATE CREATED AUTHOR AUTHOR'S ORGANIZ ATION 10/20/2021 [facility] DATE CREATED AUTHOR AUTHOR'S ORGANIZ ATION 02/10/2022 [facility] DATE CREATED AUTHOR AUTHOR'S ORGANIZ ATION 12/11/2022 [facility] DATE CREATED AUTHOR AUTHOR'S ORGANIZ ATION 05/11/2023 [facility] DATE CREATED AUTHOR AUTHOR'S ORGANIZ ATION 09/26/2023 [facility] Specialists EPIC Reason for Visit (unrecogniz ed section and content) Reason Comments Cosmetic Botox injection. Las t Botox injection was on 01/24/19. Reason Comments Cosmetic Restylane injection. Last Restylane injection was on 01/25/17. Reason Comments Leukemia 6 month follow up Reason Comments Lab Orders Source Comments (unrecognize d section and content) In the event this informatio n is protected by the Federal Confidentiality of Alcohol and Drug Abuse Patient Records regulations: The Federal rules restrict any use of the information to criminally investigate or prosecute any alcohol or drug abuse patient.[facility] the event this information is protected by the Federal Confidentiality of Alcohol and Drug Abuse Patient Records regulations: The Federal rules restrict any use of the information to criminally investigate or prosecute any alcohol or drug abuse patient.[facility] the event this information is protected by the Federal Confidentiality of Alcohol and Drug Abuse Patient Records regulations: The Federal rules restrict any use of the information to criminally investigate or prosecute any alcohol or drug abuse patient.[facility] the event this information is protected by the Federal Confidentiality of Alcohol and Drug Abuse Patient Records regulations: The Federal rules restrict any use of the information to criminally investigate or prosecute any alcohol or drug abuse patient.[facility] Care Teams (unrecognized sec tion and content) Team Status: Active Member Role Status Dates Schuyler Desir DO Primary Care Provider Active Team Status: Inactive Member Role Status Dates Schuyler Desir DO Primary Care Provide r, Attending Provider Active Start: September 05, 2023 End: September 05, 2023 Team Status: Inactive Member Role Status Dates Schuyler Desir DO Primary Care Provider Active Start: October 19, 2023 End: October 19, 2023 William Hirsch APRN Attending Provider Active Start: October 19, 2023 End: October 19, 2023 Team Status: Active Member Role Status Dates Schuyler Desir DO Primary Care Provider Active Team Status: Active Member Role Status Dates Schuyler Desir DO Primary Care Provider Active Start: June 17, 2023 WALLY Antonio Attending Provider Active Start : June 17, 2023 Team Status: Inactive Member Role Status Dates Schuyler Desir DO Primary Care Provide r, Attending Provider Active Start: June 20, 2023 End: June 20, 2023 Team Status: Inactive Member Role Status Dates Schuyler Desir DO Primary Care Provide r, Attending Provider Active Start: September 05, 2023 End: September 05, 2023 Cabinetmaker Helper Relationship Specialty Start Date End Date Schuyler Desir DO PCP - General Internal Medicine 08/22/14 [employer]maker Helper Relationship Specialty Start Date End Date Schuyler Desir DO PCP - General Internal Medicine 08/22/14 Cabinetmaker Helper Relationship Specialty Start Date End Date Schuyler Desir DO PCP - General Internal Medicine 08/22/14 Team Status: Inactive Member Role Status Dates Schuyler Desir DO Primary Care Provider Active Jake Mireles MD Attending Provider Active Team Status: Inactive Member Role Status Dates Schuyler Desir , Primary Care Provider Active DONATO Odonnell Attending Provider Active Cabinetmaker Helper Relationship Specialty Start Date End Date Schuyler Desir DO PCP - General Internal Medicine 08/22/14 Team Status: Inactive Member Role Status Dates Schuyler Desir DO Attending Provider Active Sta rt: April 20, 2023 End: April 20, 2023 Team Status: Active Member Role Status Dates Schuyler Yen Primary Care Provide r, Attending Provider Active Start: May 09, 2023 Team Status: Inactive Member Role Status Dates Schuyler Desir Primary Care Provider Active Start: October 19, 2023 End: October 19, 2023 William Hirsch APRN Attending Provider Active Start: October 19, 2023 End: October 19, 2023 Goals (unrecognized section and content) Goals may be documented in a n alternate section FOR RECORDS PERTAINING TO PATIENTS WHO ARE OR HAVE BEEN ENROLLED IN A CHEMICAL DEPENDENCY/SUBSTANCEABUSE PROGRAM, SOME INFORMATION MAY BE OMITTED. This clinical summary was aggregated from multiple sources. Caution should be exercised in using it in the provision of clinical care. This summary normalizes information from multiple sources, and as a consequence, information in this document may materially change the coding, format and clinical context of patient data. In addition, data may be omitted in some cases. CLINICAL DECISIONS SHOULD BE BASED ON THE PRIMARY CLINICAL RECORDS. [facility]. provides no warranty or guarantee of the accuracy or completeness of information in this document.
== END 2023-10-24 07:58 | disposition home or self-care (01) ==
LOC: CT 07:57
PROVIDERS: PCP Internal Medicine; Visit Provider Internal Medicine
DX: F17.211 Nicotine dependence, cigarettes, in remission (principal)
CPT/HCPCS: 71271

== ENCOUNTER 2024-03-04 07:08 | Emergency (ER) | payer MEDICARE, SELFPAY ==
[2024-03-04 07:12] VITALS: BP 146/68; PULSE 72; TEMP 36.4; O2SAT 100; BMI 19.9
--- OUTSIDE RECORDS SUMMARY | 2024-03-04 07:19 | XMS_ITS | CCD ---
Author Organization [facility] Care Team Providers Care Retail Helper Name Role Phone GHAZOUL, RODOLFO Unavailable Unavailable GHAZOUL, RODOLFO Unavailable Unavailable GHAZOUL, RODOLFO Unavailable Unavailable SELF, SELF Unavailable Unavailable Schuyler Barlow Primary Care Provider Schuyler Barlow Primary Care Provider Kedar Paredes Unavailable Schuyler Barlow DO Primary Care Provider Amy Hernandez Unavailable YEN, DR PAYAN Consulting Unavailable BALL, DR PAYAN Primary Care Unavailable BALL, DR PAYAN Attending Unavailable BALL, DR PAYAN Admitting Unavailable ZIEBER, DR GUERLINE Isbell Consulting Unavailable USMAN, DR KEDAR Mojica Consulting Unavailable BALL, DR PAYAN Primary Care Unavailable USMAN, DR KEDAR Mojica Attending Unavailable USMAN, DR [...] Admitting Unavaila ble PARVEEN, RIVERA Consulting Unavailable YEN, DR PAYAN Primary Care Unavailable PARVEEN, RIVERA Attending Unavailable PARVEEN, RIVERA Admitting Unavailable RIVERA SAINI Consulting Unavailable BALL, DR PAYAN Referring Unavailable BALL, DR PAYAN Primary Care Unavailable PARVEEN, RIVERA Attending Unavailable RIVERA SAINI Admitting Unavailable BALL, DR PAYAN Consulting Unavailable BALL, DR PAYAN Primary Care Unavailable BALL, DR PAYAN Attending Unavailable BALL, DR PAYAN Admitting Unavailable BALL, DR PAYAN Consulting Unavailable BALL, DR PAYAN Primary Care Unavailable BALL, DR PAYAN Attending Unavailable BALL, DR PAYAN Admitting Unavailable ZIEBER, DR GUERLINE Isbell Consulting Unavailable BALL, DR PAYAN Consulting Unavailable BALL, DR PAYAN Primary Care Unavailable BALL, DR PAYAN Attending Unavailable BALL, DR PAYAN Admitting Unavailable Ball DO, Schuyler E Primary Care Provider Jake Mireles Unavailable Yen Schuyler Unavailable Yen, DO Payan Primary Care Provider MD Jake Mireles Attending Provider Daija Cain Unavailable Yen, DO Payan Primary Care Provider DONATO Cain Attending Provider Jake Mireles Admitting Unavailable Aline, Jake Kapadia Attending Unavailable Ball, Schuyler Primary Care Unavailable Payton, Daija Admitting Unavailable Daija Cain Attending Unavailable Ball, Schuyler Primary Care Unavailable Unavailable Primary Care Provider Unavailabl e BALL, SCHUYLER E Primary Care Unavailable BALL, SCHUYLER E Primary Care Unavailable ABHYANKAR, FERNANDO Attending Unavailable BALL, SCHUYLER E Primary Care Unavailable ABHYANKAR, FERNANDO Referring Unavailable BALL, SCHUYLER E Primary Care Unavailable ABHYANKAR, FERNANDO Referring Unavailable ABHYANKAR, FERNANDO Attending Unavailable BALL, SCHUYLER E Primary Care Unavailable BALL, SCHUYLER E Primary Care Unavailable ABHYANKAR, FERNANDO Attending Unavailable Ball DO, Schuyler E Primary Care Provider Schuyler Barlow MD Primary Care Provider GUNNER BARRETT Attending Unavailable DIDIONKYLEE Attending Unavailable DIDION, KYLEE Marie Attending Unavailable DIDION, KYLEE Marie Attending Unavailable BALL, SCHUYLER E Referring Unavailable DIDION, KYLEE Marie Attending Unavailable DIDION, KYLEE Marie Attending Unavailable DIDION, KYLEE Marie Attending Unavailable DIDION, KYLEE Marie Attending Unavailable MAG-NOSSEKMICHOACANO Attending Unavailab le DIDION, KYLEE Marie Attending Unavailable DIDION, KYLEE Marie Attending Unavailable MAG-NOSSEKMICHOACANO Attending Unavailab le VISCI, JOJO Villareal Referring Unavailable MAG-NOSSEKMICHOACANO Attending Unavailab le DIDION, KYLEE Marie Attending Unavailable VISCI, JOJO Villareal Attending Unavailable VISCI, JOJO Villareal Referring Unavailable DIDION, KYLEE C Attending Unavailable MICHOACANO MENDES Attending Unavailab KYLEE Riley Attending Unavailable KYLEE SMITH Attending Unavailable MICHOACANO MENDES Attending Unavailab KYLEE Riley Referring Unavailable KYLEE SMITH Attending Unavailable KYLEE SMITH Attending Unavailable KYLEE SMITH Attending Unavailable Allergies Allergy Classification Reported Allergen(s) Allergy Type Date of Onset Reaction(s) Facility (6 sources) Bee Venom Protein (Honey Bee); Translations: [BEE VENOM PROTEIN (HONEY BEE)] Drug Allergy 4 Unknown [facility] (1 source) bee venom Drug allergy (disorder) 4 [facility] (2 sources) patient allergy list reviewed by nurse or physicia Propensity to adverse reactions 4 Comment:Done [employer] Other (16 sources) Bee Sting Drug allergy swelling [employer] Other (3 sources) Honey bee venom Allergy to substance 4 Unknown [facility] Medications Current Medications Medication Drug Class(es) Dates Sig (Normalized) Sig (Original) [id number] actuat albuterol 0.09 mg/actuat metered dose [...] Alprazolam Active 0.25 MG PO Twice daily 2023 8:46am Start: 08-18-2022 End: 2023 take 0.25 mg by mouth once daily Alprazolam Discontinued 0.25 MG PO Daily August 18, 2022 12:00am 2023 8:48am Start: 06-06-2022 take 1 tablet by loly every eight hours as needed for anxiety ALPRAZolam 0.25 mg TAKE ONE TABLET BY MOUTH EVERY 8 HOURS NEEDED FOR ANXIETY 14 Jan, 2023 Active Start: 07-23-2017 take 0.5-1 tablets b [...] AM and 1/2 tab in the afternoon Active Xanax Active Comment on above: Take [...] a day for 10 days Feb, Active busPIRone hydrochloride 15 mg oral tablet (3 sources) Start: busPIRone (BUSPAR) 15 mg tablet TAKE 1 TABLET EVERY DAY FOR THE FIRST WEEK THEN INCREASE TO TWICE A DAY 04/27/2023 Active Comment on above: TAKE 1 TABLET EVERY DAY FOR THE FIRST WEEK THEN INCREASE TO TWICE A DAY cholecalciferol 0.025 mg oral capsule (7 sources) Vitamin D Start: take 1 capsule by mouth once daily Cholecalciferol (Vitamin D3) (Vitamin D3) 25 mcg (1,000 unit) Capsule Active 25 MCG PO Daily August 19, 2022 12:00am citalopram 20 mg oral tablet (20 sources) Serotonin Reuptake Inhibitor Start: take 1 tablet by mouth once daily Citalopram (Celexa) 20 mg tablet Active 20 MG PO Daily December 30, 2023 12:00am Start: 08-18-2022 End: 09-05-2023 take 40 mg by mouth once daily Citalopram Discontinued 40 MG PO Daily August 18, 2022 12:00am September 05, 2023 10:09am take 2 tablets by mo [facility] once daily citalopram (CELEXA) 20 mg tablet Take 40 mg by mouth once daily. Active citalopram (Alisha XA) 20 MG tablet Take by mouth. 0 Active take 1 tablet by loly th once daily CeleXA 30 mg 1 tablet Orally Once a day Active Citalopram [place] bromide Active take 1 tablet by loly th once daily Citalopram Hydrobromide (CELEXA PO) Celexa; take 1 tablet by oral route every day. 0 Active Comment on above: Take 40 mg by mouth once daily. docusate sodium 50 mg / sennosides, longterm 8.6 mg oral tablet (20 sources) take 1 tablet by mouth every twenty-four hours Senokot S 8.6-50 MG 1 tablet in the evening as needed Orally Once a day Active fexofenadine hydrochloride 60 mg oral tablet (12 sources) Histamine-1 Receptor Antagonist Start: take 1 tablet by mouth once daily Fexofenadine (Shakira Allergy) 60 mg Tablet Active 60 MG PO Daily August 19, 2022 12:00am take 1 tablet by mouth once arsalan y fexofenadine (SHAKIRA) 180 mg tablet Indications: CLL (chronic lymphocytic leukaemia) Take 180 mg by mouth once daily. Active Comment on above: Take 180 mg by mouth once daily. 60 actuat fluticasone propionate 0.25 mg/actuat / salmeterol 0.05 mg/actuat dry powder inhaler (8 sources) Corticosteroid, beta2-Adrenergic Agonist Start: 023 take 1 puff(s) by inhalation twice daily Wixela Inhub 250-50 MCG/ACT 1 puff Inhalation Twice a day for 30 days Feb, Active hydrocortisone 25 mg/ml topical cream (1 source) Corticosteroid Start: 022 Anusol-HC 2.5 % 1 application Externally Twice a day for 15 days Mar, Active levoFLOXacin 750 mg oral tablet (9 sources) Quinolone Antimicrobial Start: 023 take 1 tablet by mouth every twenty-four hours levoFLOXacin 750 MG 1 tablet Orally Once a day for 7 days Feb, Active Multivitamin (Hair,Nails And Skin Vitamin) Tablet (7 sources) Start: 023 take 1 tablet by mouth once daily Multivitamin (Hair,Nails And Skin Vitamin) Tablet Active 1 TAB PO Daily August 19, 2022 12:00am nadolol 40 mg oral tablet (20 sources) beta-Adrenergic Mae Start: 024 take 1 tablet by mouth twice daily Nadolol Active 0 .ROUTE .COMPLEX 180 December 11, 2023 8:01pm TAKE 1 TABLET BY MOUTH TWICE A DAY Start: 06-17-2023 End: 12-11-2023 take 1 tablet by mouth twice daily Nadolol (Corgard) 40 mg tablet Discontinued 40 MG PO Twice daily 180 90 June 17, 2023 1:09pm December 11, 2023 8:02pm Start: 08-18-2022 End: 06-17-2023 take 1 tablet by mouth once daily Nadolol (Corgard) 40 mg Tablet Discontinued 40 MG PO Daily August 19, 2022 12:00am June 17, 2023 9:50am take 1 tablet by loly th in the morning nadolol (Corgard) 20 MG tablet Take 20 mg by mouth in the morning and 20 mg before bedtime. Active take 2 tablets by mo uth once daily nadolol (CORGARD) 40 mg tablet Take 80 mg by mouth once daily. Active Nadolol 40 mg TA KE 1 TABLET TWICE A DAY Active Nadolol Active take 1 tablet by loly th once daily nadolol (CORGARD) 80 MG Tab take 80 mg by mouth daily. 0 Active Comment on above: Take 80 mg by mouth once daily. omeprazole 40 mg delayed release oral capsule (7 sources) Proton Pump Inhibitor Omeprazole 40 mg capsule Indications: Chronic lymphocytic leukemia (HCC) Take 40 mg by mouth. Active Comment on above: Take 40 mg by mouth. predniSONE 20 mg oral tablet (11 sources) [...] as directed for 30 days Mar, Active terbinafine 250 mg oral tablet (11 sources) [...] Two times a Week Active Vitamin E (7 sources) Start: 08-19-2022 take 45 mg by mouth once daily Vitamin E Active 45 MG PO Daily August 19, 2022 12:00am Completed/Discontinued Medications Medication Drug Class(es) Dates Sig (Normalized) Sig (Original) betamethasone 0.5 mg/ml / clotrimazole 10 mg/ml topical cream (20 sources) Azole Antifungal, Corticosteroid Start: 2 Clotrimazole-Betameth asone 1-0.05 % 1 application Externally Twice a day for 5 day(s) Dec, Not-Taking/PRN fluconazole 100 mg oral tablet (3 sources) Azole Antifungal Start: 0 End: 3 take 1 tablet by mouth once daily fluconazole (DIFLUCAN) 100 mg tablet Take 100 mg by mouth once daily. 0 05/30/2019 05/11/2022 Discontinued (Discontinued by Patient) Comment on above: Take 100 mg by mouth once daily. fluticasone propionate 0.05 mg/actuat metered dose nasal spray (3 sources) Corticosteroid Start: 0 End: 3 take 1 spray(s) nasal route once daily fluticasone (FLONASE) 50 mcg/actuation nasal spray SPRAY 1 SPRAY INTO EACH NOSTRIL EVERY DAY 0 05/19/2019 05/11/2022 Discontinued (Discontinued by Patient) Comment on above: SPRAY 1 SPRAY INTO E ACH NOSTRIL EVERY DAY gabapentin 100 mg oral capsule (5 sources) Anti-epileptic Agent Start: 4 End: 4 take 100 mg by mouth once daily at bedtime Gabapentin Discontinued 100 MG PO Daily at bedtime June 20, 2023 12:00am November 25, 2023 10:48am methylPREDNISolone 4 mg oral tablet (20 sources) Corticosteroid Start: 2 methylPREDNISolone 4 MG as directed Orally Once a day for 6 days Dec, Not-Taking/PRN nabumetone 500 mg oral tablet (3 sources) Nonsteroidal Anti-inflammatory Drug Start: 0 End: 3 take 1 tablet by mouth twice daily at mealtime nabumetone (RELAFEN) 500 mg tablet Take 500 mg by mouth twice daily with meals. 0 04/23/2019 05/11/2022 Discontinued (Discontinued by Patient) Comment on above: Take 500 mg by mouth twice daily with meals. pantoprazole 40 mg delayed release oral tablet (20 sources) Proton Pump Inhibitor Start: 3 End: 4 take 40 mg by mouth once daily Pantoprazole Discontinued 40 MG PO Daily 90 90 June 17, 2023 1:09pm October 19, 2023 9:49am Start: 10-25-2018 End: 05-11-[address] (PROTONIX) 2 0 mg tablet Pantoprazole Sod ium Active sertraline 50 mg oral tablet (10 sources) Serotonin Reuptake Inhibitor Start: 11-25-2023 End: 12-30-2023 take 1 tablet by mouth once daily Sertraline (Zoloft) 50 mg tablet Discontinued 50 MG PO Daily November 25, 2023 12:00am December 30, 2023 12:41pm Start: 11-02-2023 take 1.5 tablets by mouth once daily sertraline (Zoloft) 50 MG tablet Indications: LEO (generalized anxiety disorder) ([facility]) Take 1.5 tablets (75 mg) by mouth Daily 45 tablet 2 11/02/2023 Active Start: 09-05-2023 End: 12-02-2023 sertraline (ZOLOFT) 50 mg ta blet Take 75 mg by mouth once daily. 09/05/2023 12/02/2023 Active Start: 09-05-2023 End: 10-19-2023 take 1 tablet by mouth once daily Sertraline (Zoloft) 50 mg tablet Discontinued 50 MG PO Daily September 05, 2023 12:00am October 19, 2023 1:15pm terconazole 8 mg/ml vaginal cream (3 sources) Azole Antifungal Start: 04-27-2018 End: 05-11-2022 terconazole vaginal cream (TERAZOL) 0.8 % vaginal [...] Zoster Virus Nucleoside Analog DNA Polymerase Inhibitor Start: 05-24-2018 End: 05-11-2022 take 1 tablet by mouth twice daily valACYclovir (VALTREX) 1 gram tab TAKE 1 TABLET BY MOUTH TWICE A DAY FOR 10 DAYS 0 05/24/2018 05/11/2022 Discontinued (Discontinued by Patient) Comment on above: TAKE 1 TABLET BY LOLY TH TWICE A DAY FOR 10 DAYS 24 hr venlafaxine 37.5 mg extended release oral capsule (2 sources) Serotonin and Norepinephrine Reuptake Inhibitor Start: 10-19-2023 End: 11-25-2023 take 37.5 mg by mouth once daily in the morning Venlafaxine Discontinued 37.5 MG PO Every morning 14 14 October 19, 2023 12:00am November 25, 2023 10:47am Problems Active Problems Problem Classification Problem Date Documented Da te Episodic/Chronic Acute and chronic tonsillitis (6 sources) Cryptic tonsil; Translations: [Other chronic diseases of tonsils and adenoids] 06-20-2023 Chronic Acute bronchitis (4 sources) Acute bronchitis; Translations: [Acute bronchitis due to other specified organisms] Onset: 5 Episodic Allergic reactions (6 sources) Unspecified contact dermatitis, unspecified cause; Translations: [Allergy to bee venom] Onset: 6 Episodic Anxiety disorders (20 sources) Generalized anxiety disorder; Translations: [Generalized anxiety disorder] Onset: 4 Chronic Cardiac dysrhythmias (2 sources) Supraventricular tachycardia; [...] OBJ INT] Onset: 2 Episodic Esophageal disorders (10 sources) Gastroesophageal reflux disease; Translations: [Gastro-esophageal reflux [...] 5 Chronic Other aftercare (1 source) Other termite control representative (current) drug therapy; Translations: [OTH NUMERICAL CONTROL LATHE OPERATOR CURRENT DRUG THERAPY] Onset: 2 Episodic Other [...] STRUCT LT THIGH] Onset: 2 Episodic Other circulatory disease (2 sources) Raynaud's phenomenon; Translations: [Raynaud's syndrome without gangrene] 11-25-2023 Chronic Other circulatory disease (1 source) Raynaud's syndrome without gangrene; Translations: [Raynaud's syndrome] 11-25-2023 Chronic Other connective tissue disease (1 source) Pain [...] diseases of intestine] Episodic Other gastrointestinal disorders (3 sources) Constipation; Translations: [Constipation, unspecified] 10-19-2023 Episodic Other gastrointestinal disorders (3 sources) Constipation, unspecified; Translations: [Constipation, unspecified] 10-19-2023 Episodic Other hereditary and degenerative nervous system conditions (7 sources) Restless legs; Translations: [Restless legs syndrome] [...] Wrinkled skin; Translations: [Rhytides] 12-20-2016 Episodic Other skin disorders (2 sources) Seborrheic keratosis; Translations: [Other seborrheic keratosis] 02-09-2024 Episodic Other skin disorders (2 sources) Lentiginosis; Translations: [Other melanin hyperpigmentation] 02-09-2024 Episodic Other upper respiratory infections (2 sources) [...] Test Name Value Interpretation Reference Range Facility Basophils Auto (Bld) [#/Vol] on 11-07-2023 Basophils (Bld) [#/Vol] 0.24 10*3/uL High <0.11 [facility] Basophils/100 WBC Auto (Bld) on 11-07-2023 Basophils/100 WBC (Bld) 1.0 % [facility] Blood manual differential co mment interpretation narrativeon 11-07-2023 Manual differential comment Charan (Bld) [Interp] Manual [facility] CBC W Auto Differential pane l (Bld)on 11-07-2023 Basophils (Bld) [#/Vol] 0.24 10*3/uL High <0.11 [facility] Comment on above: Order Comment: Speci men Type: BLOOD SPECIMEN Ordering Facility: [facility] Address: [address] [place] [address] Performed By: #### 5 7021-8 #### [facility] CLIA [id number] [address] [place] [address] LAB CLIA [id number] [address] [place] [address] [place] Basophils/100 WBC (Bld) 1.0 % Normal [facility] Comment on above: Order Comment: Speci men Type: BLOOD SPECIMEN Ordering Facility: [facility] Address: [address] [place] [address] Performed By: #### 5 7021-8 #### [facility] CLIA [id number] [address] [place] [address] LAB CLIA [id number] [address] [place] [address] [place] Differential cell count method Nom (Bld) Manual Normal [facility] Comment on above: Order Comment: Speci men Type: BLOOD SPECIMEN Ordering Facility: [facility] Address: [address] [place] [address] Performed By: #### 5 7021-8 #### [facility] CLIA [id number] [address] [place] [address] LAB CLIA [id number] [address] [place] [address] [place] Eosinophils (Bld) [#/Vol] 0.00 10*3/uL Normal <0.46 [facility] Comment on above: Order Comment: Speci men Type: BLOOD SPECIMEN Ordering Facility: [facility] Address: [address] [place] [address] Performed By: #### 5 7021-8 #### [facility] CLIA [id number] [address] [place] [address] LAB CLIA [id number] [address] [place] [address] [place] Eosinophils/100 WBC (Bld) 0.0 % Normal [facility] Comment on above: Order Comment: Speci men Type: BLOOD SPECIMEN Ordering Facility: [facility] Address: [address] [place] [address] Performed By: #### 5 7021-8 #### [facility] CLIA [id number] [address] [place] [address] LAB CLIA [id number] [address] [place] [address] [place] Erythrocyte distribution width (RBC) [Ratio] 13.2 % Normal 11.5-15.0 [facility] Comment on above: Order Comment: Speci men Type: BLOOD SPECIMEN Ordering Facility: [facility] Address: [address] [place] [address] Performed By: #### 5 7021-8 #### [facility] CLIA [id number] [address] [place] [address] LAB CLIA [id number] [address] [place] [address] [place] Hematocrit (Bld) [Volume fraction] 41.4 % Normal 36.0-46.0 [facility] Comment on above: Order Comment: Speci men Type: BLOOD SPECIMEN Ordering Facility: [facility] Address: [address] [place] [address] Performed By: #### 5 7021-8 #### [facility] CLIA [id number] [address] [place] [address] LAB CLIA [id number] [address] [place] [address] [place] Hemoglobin (Bld) [Mass/Vol] 14.5 g/dL Normal 11.5-15.5 [facility] Comment on above: Order Comment: Speci men Type: BLOOD SPECIMEN Ordering Facility: [facility] Address: [address] [place] [address] Performed By: #### 5 7021-8 #### [facility] CLIA [id number] [address] [place] [address] LAB CLIA [id number] [address] [place] [address] [place] Lymphocytes (Bld) [#/Vol] 19.06 10*3/uL High 1.00-4.00 [facility] Comment on above: Order Comment: Speci men Type: BLOOD SPECIMEN Ordering Facility: [facility] Address: [address] [place] [address] Performed By: #### 5 7021-8 #### [facility] CLIA [id number] [address] [place] [address] LAB CLIA [id number] [address] [place] [address] [place] Lymphocytes/100 WBC (Bld) 78.0 % Normal [facility] Comment on above: Order Comment: Speci men Type: BLOOD SPECIMEN Ordering Facility: [facility] Address: [address] [place] [address] Performed By: #### 5 7021-8 #### [facility] CLIA [id number] [address] [place] [address] LAB CLIA [id number] [address] [place] [address] [place] MCH (RBC) [Entitic mass] 32.3 pg Normal 26.0-34.0 [facility] Comment on above: Order Comment: Speci men Type: BLOOD SPECIMEN Ordering Facility: [facility] Address: [address] [place] [address] Performed By: #### 5 7021-8 #### [facility] CLIA [id number] [address] [place] [address] LAB CLIA [id number] [address] [place] [address] [place] MCHC (RBC) [Mass/Vol] 35.0 g/dL Normal 30.5-36.0 [facility] Comment on above: Order Comment: Speci men Type: BLOOD SPECIMEN Ordering Facility: [facility] Address: [address] [id number] Performed By: #### 5 7021-8 #### [facility] CLIA [id number] [address] [place] [address] LAB CLIA [id number] [address] [place] [address] [place] MCV (RBC) [Entitic vol] 92.2 fL Normal 80.0-100.0 [facility] Comment on above: Order Comment: Speci men Type: BLOOD SPECIMEN Ordering Facility: [facility] Address: [address] [place] [address] Performed By: #### 5 7021-8 #### [facility] CLIA [id number] [address] [place] [address] LAB CLIA [id number] [address] [place] [address] [place] Monocytes (Bld) [#/Vol] 0.49 10*3/uL Normal <0.87 [facility] Comment on above: Order Comment: Speci men Type: BLOOD SPECIMEN Ordering Facility: [facility] Address: [address] [place] [address] Performed By: #### 5 7021-8 #### [facility] CLIA [id number] [address] [place] [address] LAB CLIA [id number] [address] [place] [address] [place] Monocytes/100 WBC (Bld) 2.0 % Normal [facility] Comment on above: Order Comment: Speci men Type: BLOOD SPECIMEN Ordering Facility: [facility] Address: [address] [place] [address] Performed By: #### 5 7021-8 #### [facility] CLIA [id number] [address] [place] [address] LAB CLIA [id number] [address] [place], [place] [id number] [place] Neutrophils (Bld) [#/Vol] 4.64 10*3/uL Normal 1.45-7.50 [facility] Comment on above: Order Comment: Speci men Type: BLOOD SPECIMEN Ordering Facility: [facility] Address: [address] [place] [address] Performed By: #### 5 7021-8 #### [facility] CLIA [id number] [address] [place] [address] LAB CLIA [id number] [address] [place] [address] [place] Neutrophils/100 WBC (Bld) 19.0 % Normal [facility] Comment on above: Order Comment: Speci men Type: BLOOD SPECIMEN Ordering Facility: [facility] Address: [address] [place] [address] Performed By: #### 5 7021-8 #### [facility] CLIA [id number] [address] [place] [address] LAB CLIA [id number] [address] [place] [address] [place] Nucleated RBC (Bld) [#/Vol] 0.24 10*3/uL High <0.01 [facility] Comment on above: Order Comment: Speci men Type: BLOOD SPECIMEN Ordering Facility: [facility] Address: [address] [place] [address] Performed By: #### 5 7021-8 #### [facility] CLIA [id number] [address] [place] [address] LAB CLIA [id number] [address] [place] [address] [place] Nucleated RBC/100 WBC (Bld) [Ratio] 1.0 /100 WBC Normal [facility] Comment on above: Order Comment: Speci men Type: BLOOD SPECIMEN Ordering Facility: [facility] Address: [address] [place] [address] Performed By: #### 5 7021-8 #### [facility] CLIA [id number] [address] [place] [address] LAB CLIA [id number] [address] [place] [address] [place] Ovalocytes LM Ql (Bld) Few Normal [facility] Comment on above: Order Comment: Speci men Type: BLOOD SPECIMEN [facility]ing Facility[facility] Address: [address] [place] [address] Performed By: #### 5 7021-8 #### [facility] CLIA [id number] [address] [place] [address] LAB CLIA [id number] [address] [place] [address] [place] Platelet mean volume (Bld) [Entitic vol] 9.7 fL Normal 9.0-12.7 [facility] Comment on above: Order Comment: Speci men Type: BLOOD SPECIMEN [facility]ing Facility[facility] Address: [address] [place] [address] Performed By: #### 5 7021-8 #### [facility] CLIA [id number] [address] [place] [address] LAB CLIA [id number] [address] [place] [address] [place] Platelets (Bld) [#/Vol] 227 10*3/uL Normal 150-400 [facility] Comment on above: Order Comment: Speci men Type: BLOOD SPECIMEN [facility]ing Facility[facility] Address: [address] [place] [address] Result Comment: Resu lts checked and verified.No clot detected. Performed By: #### 5 7021-8 #### [facility] CLIA [id number] [address] [place] [address] LAB CLIA [id number] [address] [id number] [address] [place] Platelets Estimate (Bld) [#/Vol] Adequate Normal [facility] Comment on above: Order Comment: Speci men Type: BLOOD SPECIMEN [facility]ing [facility] Address: [address] [place] [address] Performed By: #### 5 7021-8 #### [facility] CLIA [id number] [address] [place] [address] LAB CLIA [id number] [address] [place] [address] [place] RBC (Bld) [#/Vol] 4.49 10*6/uL Normal 3.90-5.[address] [facility] Comment on above: Order Comment: Speci men Type: BLOOD SPECIMEN [facility]ing [facility] Address: [address] [place] [address] Performed By: #### 5 7021-8 #### [facility] CLIA [id number] [address] [place] [address] LAB CLIA [id number] [address] [place] [address] [place] RED CELL MORPH Reviewed: see result s of individual morphologies Normal [facility] Comment on above: Order Comment: Speci men Type: BLOOD SPECIMEN [facility] Address: [address] [place] [address] Performed By: #### 5 7021-8 #### [facility] CLIA [id number] [address] [place] [address] LAB CLIA [id number] [address] [place] [address] [place] WBC (Bld) [#/Vol] 24.44 10*3/uL High 3.70-11.00 [facility] Comment on above: Order Comment: Speci men Type: BLOOD SPECIMEN [facility]ing [facility]: [facility] Address: [address] [place] [address] Result Comment: Resu lts checked and verified.No clot detected. Performed By: #### 5 7021-8 #### [facility] CLIA [id number] [address] [place] [id number] [place] [address] LAB CLIA [id number] [address] [place], [place] [address] [place] CNOVSPon 11-07-2023 CNOVSP Visit (SP) Office (HEMASA) NADEEN OQUENDO ([id number]) 1950 F Date Time Provider Department 11/07/23 10:30 AM FERNANDO HANNA During your visit today, we recorded the following information about you: Temperature Pulse Respiration Blood pressure 97.1 degrees 64/minute 16/minute 127/75 Weight Height 61.8 kg 1.753 m Fernando Hanna MD 11/07/2023 6:52 PM Signed NAME: Nadeen Oquendo CLINIC NO.: [id number] DATE OF SERVICE: November 07, 2023 (Jaime) Some elements in this clinic note that are critical to medical decision making have been carefully reviewed and included from a prior clinic note dated: May 09, 2023 (Jaime) Referring Provider: Dr. Schuyler Barlow Additional Clinicians involved in Nadeen Oquendo's care: CC: CLL diagnosed 2014. ASSESSMENT: Chronic lymphocytic leukemia (HCC) - ICD9: 204.10, ICD10: C91.90 Her counts remain stable and she is asymptomatic. We will continue to monitor her counts every 6 months and see her in follow up. [facility] Mutated FISH normal - intermediate risk. Getting screening CT's with Dr. Barlow for high risk lung cancer. PLAN: RTC in 6 months Lab draw same day Continue following with Dr. Barlow - HPI: CASE HISTORY: Reverse Chronological Order 2014 - Diagnosed with CLL Updated Visit, November 07, 2023: Ashley returns for a follow up, doing well overall. WBC: 24.44 today. She denies B symptoms including early satiety. No palpable lymphadenopathy. She does have a pulled muscle that is causing her pain. She was switched from Celexa to Zoloft. Updated Visit, May 09, 2023: Ashley continues [...] and labs are stable. 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 [...] in the next week. 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 [...] PERFORMANCE STATUS: 0 PHYSICAL EXAMINATION: Vitals: BP 127/75 Pulse 64 Temp (Src) 97.1 (Temporal) Resp 16 Ht 5' 9.016 (1.75m) Wt 136 lb 3.9 oz (61.8kg) SpO2 98% BMI 20.11 kg/(m2). Body surface area is 1.73 meters squared. Exam limited to gross visualization where appropriate. Gen.: This is an age-appropriate patient in no acute distress. Head: Appears atraumatic with no visi (more content not included)... Normal [facility] Comprehensive metabolic 2000 panelon 11-07-2023 Albumin [Mass/Vol] 4.7 g/dL Normal 3.9-4.9 [facility] Comment on above: Order Comment: Speci men Type: BLOOD SPECIMEN [facility] Address: [address] [place] [address] Performed By: #### 2 532-0, 24250-6, 4-1 #### [facility] CLIA [id number] [address] [place] [address] ALP [Catalytic activity/Vol] 82 U/L Normal 34-123 [facility] Comment on above: Order Comment: Speci men Type: BLOOD SPECIMEN [facility]ing [facility] Address: [address] [place] [address] Performed By: #### 2 532-0, 87363-3, 3083-1 #### [facility] CLIA [id number] [address] [place] [address] ALT [Catalytic activity/Vol] 15 U/L Normal 7-38 [facility] Comment on above: Order Comment: Speci men Type: BLOOD SPECIMEN [facility]ing [facility] Address: [address] [place] [address] Performed By: #### 2 532-0, 08339-5, 3083-1 #### [facility] CLIA [id number] [address] [place] [address] 14196 Anion gap [Moles/Vol] 10 mmol/L Normal 8-15 [facility] Comment on above: Order Comment: Speci men Type: BLOOD SPECIMEN Ordering Facility: [facility] Address: [facility] [place] [address] Performed By: #### 2 532-0, 51556-9, 3084-1 #### [facility] CLIA [id number] [address] [place] [address] 51757 AST [Catalytic activity/Vol] 19 U/L Normal 13-35 [facility] Comment on above: Order Comment: Speci men Type: BLOOD SPECIMEN Ordering Facility[facility] Address: [address] [place] [address] Performed By: #### 2 532-0, , 3083-03 #### [facility] CLIA [id number] [address] [place] [address]32 Bilirubin [Mass/Vol] 0.4 mg/dL Normal 0.2-1.3 [facility] Comment on above: Order Comment: Speci men Type: BLOOD SPECIMEN Ordering Facility: [facility] Address: [address] [place] [address] Performed By: #### 2 532-0, 67704-6, 3083-03 #### [facility] CLIA [id number] [address] [place] [address] Calcium [Mass/Vol] 9.5 mg/dL Normal 8.5-10.2 [facility] Comment on above: Order Comment: Speci men Type: BLOOD SPECIMEN [facility]ing Facility[facility] Address: [address] [place] [address] Performed By: #### 2 532-0, , 3083-03 #### [facility] CLIA [id number] [address] [place] [address] Chloride [Moles/Vol] 102 mmol/L Normal 98-107 [facility] Comment on above: Order Comment: Speci men Type: BLOOD SPECIMEN Ordering Facility: [facility] Address: [address] [place] [address] Performed By: #### 2 532-0, 24089-8, 3083-03 #### [facility] CLIA [id number] [address] [place] [address] 00177 CO2 [Moles/Vol] 23 mmol/L Normal 22-30 [facility] Comment on above: Order Comment: Speci men Type: BLOOD SPECIMEN Ordering Facility: [facility] Address: [address] [place] [address] Performed By: #### 2 532-0, 08873-3, 3084-1 #### [facility] CLIA [id number] [address] [place] [address] Creatinine [Mass/Vol] 0.80 mg/dL Normal 0.58-0.96 [facility] Comment on above: Order Comment: Nando mike Type: BLOOD SPECIMEN Ordering Facility[facility] Address: [address] [place] [address] Performed By: #### 2 532-0, 01672-3, 3084-1 #### [facility] CLIA [id number] [address] [place] [address] Creatinine and Glomerular filtration rate.predicted panel (S/P/Bld) 77 mL/min/1.73m??? Normal >=60 [facility] Comment on above: Order Comment: Nando [facility] Type: BLOOD SPECIMEN Ordering Facility: [facility] Address: [address] [place] [address] Result Comment: Juliann mated Glomerular Filtration Rate [...] actual GFR. Performed By: #### 2 532-0, 68170-6, 4-1 #### [facility] CLIA [id number] [address] [place] [address]13 Glucose [Mass/Vol] 101 mg/dL High 74-99 [facility] Comment on above: Order Comment: Janiai rashid Type: BLOOD SPECIMEN [facility]ing [facility] Address: [address] [id number] Result Comment: The [place] Diabetes Association (ADA) provides guidance for cutoff [...] Standards of Medical Care in Diabetes 2016, [place] [employer]. Diabetes Care. 2016.39(Suppl 1). Performed By: #### 2 532-0, 95515-8, 3083-1 #### [facility] CLIA [id number] [address] [place] [address] Potassium [Moles/Vol] 5.2 mmol/L High 3.7-5.1 [facility] Comment on above: Order Comment: Nando mike Type: BLOOD SPECIMEN Ordering Facility: [facility] Address: [address] [place], [place] [address] Performed By: #### 2 532-0, 93637-4, 3083-1 #### [facility] CLIA [id number] [address] [place] [address]761 Protein [Mass/Vol] 6.6 g/dL Normal 6.3-8.0 [facility] Comment on above: Order Comment: Nando mike Type: BLOOD SPECIMEN Ordering [facility] Address: [address] [place] [address] Performed By: #### 2 532-0, 89662-1, 3083-1 #### [facility] CLIA [id number] [address] [place] [address]111 Sodium [Moles/Vol] 135 mmol/L Low 136-144 [facility] Comment on above: Order Comment: Nando mike Type: BLOOD SPECIMEN [facility]ing [facility] Address: [address] [place] [address] Performed By: #### 2 532-0, 43054-0, 3083-1 #### [facility] CLIA [id number] [address] [place] [address] 24708 Urea nitrogen [Mass/Vol] 13 mg/dL Normal 7-21 [facility] Comment on above: Order Comment: Nando mike Type: BLOOD SPECIMEN Ordering Facility: [facility] Address: [address] [place], [place] [address] Performed By: #### 2 532-0, 36933-6, 1 #### [facility] CLIA [id number] [address] [place] [address]841 Eosinophils/100 WBC Auto (Bl d)on 11-07-2023 Eosinophils/100 WBC (Bld) 0.0 % [facility] Erythrocyte distribution wid th Auto (RBC) [Ratio]on 11-07-2023 Erythrocyte distribution width (RBC) [Ratio] 13.2 % 11.5-15.0 [facility] Hematocrit Auto (Bld) [Volum e fraction]on 11-07-2023 Hematocrit (Bld) [Volume fraction] 41.4 % 36.0-46.0 [facility] Hemoglobin [Mass/volume] in Bloodon 11-07-2023 Hemoglobin (Bld) [Mass/Vol] 14.5 g/dL 11.5-15.5 [facility] LDH SerPl-cCncon 11-07-2023 LDH [Catalytic activity/Vol] 175 U/L Normal 135-214 [facility] Comment on above: Order Comment: Nando mike Type: BLOOD SPECIMEN [facility]ing [facility] Address: [address] [place] [address] Result Comment: Hemo lysis present. The origin of the hemolysis, in vitro versus an in vivo hemolytic process, cannot be distinguished via this assay alone. In vitro hemolysis may lead to non-physiological (spurious) elevation in lactate dehydrogenase (LDH) results. The result should be interpreted in context of the clinical setting and other test results. Suggest reorder as clinically indicated. Performed By: #### 2 532-0, 28476-0, 1 #### [facility] CLIA [id number] [address] [place] [address] Laboratory - Chemistry and C hemistry - challengeon 11-07-2023 Albumin [Mass/Vol] 4.7 g/dL 3.9-4.9 [facility] ALP [Catalytic activity/Vol] 82 U/L 34-123 [facility] ALT [Catalytic activity/Vol] 15 U/L 7-38 [facility] AST [Catalytic activity/Vol] 19 U/L 13-35 [facility] Bilirubin [Mass/Vol] 0.4 mg/dL 0.2-1.3 [facility] Calcium [Mass/Vol] 9.5 mg/dL 8.5-10.2 [facility] Chloride [Moles/Vol] 102 mmol/L 98-107 [facility] CO2 [Moles/Vol] 23 mmol/L 22-30 [facility] Creatinine [Mass/Vol] 0.80 mg/dL 0.58-0.96 [facility] Glucose [Mass/Vol] 101 mg/dL High 74-99 [facility] Comment on above: The [place] Diab[employer] Association (ADA) provides guidance for [...] Standards of Medical Care in Diabetes 2016, [place] [employer]. Diabetes Care. 2016.39(Suppl 1). LDH [Catalytic activity/Vol] 175 U/L 135-214 [facility] Comment on above: Hemolysis present. T he origin of the hemolysis, in vitro versus an in vivo hemolytic process, cannot be distinguished via this assay alone. In vitro hemolysis may lead to non-physiological (spurious) elevation in lactate dehydrogenase (LDH) results. The result should be interpreted in context of the clinical setting and other test results. Suggest reorder as clinically indicated. Potassium [Moles/Vol] 5.2 mmol/L High 3.7-5.1 [facility] Sodium [Moles/Vol] 135 mmol/L Low 136-144 [facility] Urate [Mass/Vol] 3.5 mg/dL 2.5-6.6 [facility] Urea nitrogen [Mass/Vol] 13 mg/dL 7- [facility] Laboratory - Hematology and Cell countson 11-07-2023 Eosinophils (Bld) [#/Vol] 0.00 10*3/uL <0.46 [facility] Leukocytes [#/volume] correc dudley for nucleated erythrocytes in Blood by Automated counon 11-07-2023 WBC corrected for nucl RBC Auto (Bld) [#/Vol] 24.44 k/uL High 3.70-11.00 [facility] Comment on above: Results checked and verified.No clot detected. Lymphocytes Auto (Bld) [#/Vo l]on 11-07-2023 Lymphocytes (Bld) [#/Vol] 19.06 10*3/uL High 1.00-4.00 [facility] Lymphocytes/100 WBC Auto (Bl d)on 11-07-2023 Lymphocytes/100 WBC (Bld) 78.0 % [facility] MCH Auto (RBC) [Entitic mass ]on 11-07-2023 MCH (RBC) [Entitic mass] 32.3 pg 26.0-34.0 [facility] MCHC Auto (RBC) [Mass/Vol]on 11-07-2023 MCHC (RBC) [Mass/Vol] 35.0 g/dL 30.5-36.0 [facility] MCV Auto (RBC) [Entitic vol] on 11-07-2023 MCV (RBC) [Entitic vol] 92.2 fL 80.0-100.0 [facility] Monocytes Auto (Bld) [#/Vol] on 11-07-2023 Monocytes (Bld) [#/Vol] 0.49 10*3/uL <0.87 [facility] Monocytes/100 WBC Auto (Bld) on 11-07-2023 Monocytes/100 WBC (Bld) 2.0 % [facility] Neutrophils Auto (Bld) [#/Vo l]on 11-07-2023 Neutrophils (Bld) [#/Vol] 4.64 10*3/uL 1.45-7.50 [facility] Neutrophils/100 WBC Auto (Bl d)on 11-07-2023 Neutrophils/100 WBC (Bld) 19.0 % [facility] No Panel Informationon 11-06 Estimated GFR (CKD-EPI) 77 mL/min/1.73m??? >=60 [facility] Comment on above: Estimated Glomerular Filtration [...] Morphology Reviewed: see results of individual morphologies [facility] Nucleated RBC Auto (Bld) [#/ Vol]on 11-07-2023 Nucleated RBC (Bld) [#/Vol] 0.24 10*3/uL High <0.01 [facility] Nucleated erythrocytes [Pres ence] in Blood by Automated counton 11-07-2023 Nucleated RBC Auto Ql (Bld) 1.0 /100{WBC} [facility] Ovalocyte detectionon 2023 Ovalocytes LM Ql (Bld) Few [facility] Platelet adequacy [Presence] in Blood by Light microscopyon 11-07-2023 Platelets LM Ql (Bld) Adequate [facility] Platelet mean volume Auto (B ld) [Entitic vol]on 11-07-2023 Platelet mean volume (Bld) [Entitic vol] 9.7 fL 9.0-12.7 [facility] Platelets Auto (Bld) [#/Vol] on 11-07-2023 Platelets (Bld) [#/Vol] 227 10*3/uL 150-400 [facility] Comment on above: Results checked and verified.No clot detected. Protein [Mass/volume] in Ser um or Plasmaon 11-07-2023 Protein [Mass/Vol] 6.6 g/dL 6.3-8.0 [facility] RBC Auto (Bld) [#/Vol]on RBC (Bld) [#/Vol] 4.49 10*6/uL 3.90-5.20 [facility] Serum or plasma anion gap de terminationon 11-07-2023 Anion gap [Moles/Vol] 10 mmol/L 8-15 [facility] Urate SerPl-mCncon 4 Urate [Mass/Vol] 3.5 mg/dL Normal 2.5-6.6 Don rahman [facility] Comment on above: Order Comment: Speci men Type: BLOOD SPECIMEN [facility]ing [facility] Address: [address] [place] [address] [place] [address] Performed By: #### 2 532-0, 15293-2, 3084-1 #### [facility] CLIA [id number] [address] [place] [address] BI MAMMOGRAM SCREENING TOMOS YNTHESIS BILATERALon 09-05-2023 [...] IS VERY IMPORTANT TO YOUR HEALTH. THE [place] [employer] GUIDELINES RECOMMEND THAT WOMEN 40 [...] 05-09-2023 Basophils (Bld) [#/Vol] 0.00 10*3/uL <0.11 [facility] Basophils/100 WBC Auto (Bld) on 05-09-2023 Basophils/100 WBC (Bld) 0.0 % [facility] Blood manual differential co mment interpretation narrativeon 05-09-2023 Manual differential comment Charan (Bld) [Interp] Manual [facility] CBC W Auto Differential pane l (Bld)on 05-09-2023 Basophils (Bld) [#/Vol] 0.00 10*3/uL Normal <0.11 [facility] Comment on above: Order Comment: Speci men Type: BLOOD SPECIMEN [facility]ing [facility] Address: [address] [place] [address] Performed By: #### 2 532-0, , 3083-03 #### [facility] CLIA [id number] [address] [place] [address] 58277 Basophils/100 WBC (Bld) 0.0 % Normal [facility] Comment on above: Order Comment: Speci men Type: BLOOD SPECIMEN Ordering Facility: [facility] Address: [address] [place] [address] Performed By: #### 2 532-0, 92672-6, 3083-03 #### [facility] CLIA [id number] [address] [place] [address] 08377 Differential cell count method Nom (Bld) Manual Normal [facility] Comment on above: Order Comment: Speci men Type: BLOOD SPECIMEN Ordering Facility: [facility] Address: [address] [place] [address] Performed By: #### 2 532-0, , 3083-03 #### [facility] CLIA [id number] [address] [place] [address] 40481 Eosinophils (Bld) [#/Vol] 0.25 10*3/uL Normal <0.46 [facility] Comment on above: Order Comment: Speci men Type: BLOOD SPECIMEN Ordering Facility[facility] Address: [address] [place] [address] Performed By: #### 2 532-0, , 3083-03 #### [facility] CLIA [id number] [address] [place] [address] 21956 Eosinophils/100 WBC (Bld) 1.0 % Normal [facility] Comment on above: Order Comment: Speci men Type: BLOOD SPECIMEN Ordering Facility: [facility] Address: [address] [place] [address] Performed By: #### 2 532-0, , 3083-03 #### [facility] CLIA [id number] [address] [place] [address] 44925 Erythrocyte distribution width (RBC) [Ratio] 13.1 % Normal 11.5-15.0 [facility] Comment on above: Order Comment: Speci men Type: BLOOD SPECIMEN Ordering Facility: [facility] Address: [address] [place] [address] Performed By: #### 2 532-0, 48092-4, 3083-03 #### [facility] CLIA [id number] [address] [place] [address] 51909 Hematocrit (Bld) [Volume fraction] 42.7 % Normal 36.0-46.0 [facility] Comment on above: Order Comment: Speci men Type: BLOOD SPECIMEN Ordering Facility: [facility] Address: [address] [place] [address] Performed By: #### 2 532-0, 10333-3, 3083-03 #### [facility] CLIA [id number] [address] [place] [address] 01845 Hemoglobin (Bld) [Mass/Vol] 14.4 g/dL Normal 11.5-15.5 [facility] Comment on above: Order Comment: Speci men Type: BLOOD SPECIMEN Ordering Facility: [facility] Address: [address] [place] [address] Performed By: #### 2 532-0, 78185-2, 3083-03 #### [facility] CLIA [id number] [address] [place] [address] 00927 Lymphocytes (Bld) [#/Vol] 19.20 10*3/uL High 1.00-4.00 [facility] Comment on above: Order Comment: Speci men Type: BLOOD SPECIMEN Ordering Facility: [facility] Address: [address] [place] [address] Performed By: #### 2 532-0, 12040-8, 3083-03 #### [facility] CLIA [id number] [address] [place] [address] 34358 Lymphocytes/100 WBC (Bld) 77.0 % Normal [facility] Comment on above: Order Comment: Speci men Type: BLOOD SPECIMEN Ordering Facility: [facility] Address: [address] [place] [address] Performed By: #### 2 532-0, 82313-5, 3083-03 #### [facility] CLIA [id number] [address] [place] [address] 44795 MCH (RBC) [Entitic mass] 32.1 pg Normal 26.0-34.0 [facility] Comment on above: Order Comment: Speci men Type: BLOOD SPECIMEN Ordering Facility: [facility] Address: [address] [place] [address] Performed By: #### 2 532-0, 09017-5, 3083-03 #### [facility] CLIA [id number] [address] [place] [address] 62272 MCHC (RBC) [Mass/Vol] 33.7 g/dL Normal 30.5-36.0 [facility] Comment on above: Order Comment: Speci men Type: BLOOD SPECIMEN Ordering Facility: [facility] Address: [address] [place] [address] Performed By: #### 2 532-0, , 3083-03 #### [facility] CLIA [id number] [address] [place] [address] 25706 MCV (RBC) [Entitic vol] 95.3 fL Normal 80.0-100.0 [facility] Comment on above: Order Comment: Speci men Type: BLOOD SPECIMEN Ordering Facility: [facility] Address: [address] [place] [address] Performed By: #### 2 532-0, , 3083-03 #### [facility] CLIA [id number] [address] [place] [address] 19370 Monocytes (Bld) [#/Vol] 0.50 10*3/uL Normal <0.87 [facility] Comment on above: Order Comment: Speci men Type: BLOOD SPECIMEN Ordering Facility: [facility] Address: [address] [place] [address] Performed By: #### 2 532-0, 21410-8, 3083-03 #### [facility] CLIA [id number] [address] [place] [address] 13294 Monocytes/100 WBC (Bld) 2.0 % Normal [facility] Comment on above: Order Comment: Speci men Type: BLOOD SPECIMEN [facility]ing Facility: [facility] Address: [address] [place] [address] Performed By: #### 2 532-0, 56630-4, 3083-1 #### [facility] CLIA [id number] [address] [place] [address] 98572 Neutrophils (Bld) [#/Vol] 4.99 10*3/uL Normal 1.45-7.50 [facility] Comment on above: Order Comment: Speci men Type: BLOOD SPECIMEN Ordering Facility: [facility] Address: [address] [place] [address] Performed By: #### 2 532-0, 77966-2, 3083- #### [facility] CLIA [id number] [address] [place] [address] 87720 Neutrophils/100 WBC (Bld) 20.0 % Normal [facility] Comment on above: Order Comment: Speci men Type: BLOOD SPECIMEN Ordering Facility: [facility] Address: [address] [place] [address] Performed By: #### 2 532-0, 91484-8, 3083- #### [facility] CLIA [id number] [address] [place] [address] 37707 Nucleated RBC (Bld) [#/Vol] 10*3/uL Normal <0.01 [facility] Comment on above: Order Comment: Speci men Type: BLOOD SPECIMEN Ordering Facility: [facility] Address: [address] [place] [address] Performed By: #### 2 532-0, 45510-1, 3083-1 #### [facility] CLIA [id number] [address] [place] [address] 25869 Nucleated RBC/100 WBC (Bld) [Ratio] 0.0 /100 WBC Normal [facility] Comment on above: Order Comment: Speci men Type: BLOOD SPECIMEN Ordering Facility: [facility] Address: [address] [place] [address] Performed By: #### 2 532-0, 62669-5, 3083-03 #### [facility] CLIA [id number] [address] [place] [address] 30499 Ovalocytes LM Ql (Bld) Few Normal [facility] Comment on above: Order Comment: Speci men Type: BLOOD SPECIMEN Ordering Facility: [facility] Address: [address] [place] [address] Performed By: #### 2 532-0, 61989-5, 3083-03 #### [facility] CLIA [id number] [address] [place] [address] 37165 Platelet mean volume (Bld) [Entitic vol] 9.9 fL Normal 9.0-12.7 [facility] Comment on above: Order Comment: Speci men Type: BLOOD SPECIMEN Ordering Facility: [facility] Address: [address] [place] [address] Performed By: #### 2 532-0, , 3083-03 #### [facility] CLIA [id number] [address] [place] [address] 42975 Platelets (Bld) [#/Vol] 228 10*3/uL Normal 150-400 [facility] Comment on above: Order Comment: Speci men Type: BLOOD SPECIMEN Ordering Facility: [facility] Address: [address] [place] [address] Performed By: #### 2 532-0, 26843-5, 3083-03 #### [facility] CLIA [id number] [address] [place] [address] 84630 Platelets Estimate (Bld) [#/Vol] Adequate Normal [facility] Comment on above: Order Comment: Speci men Type: BLOOD SPECIMEN Ordering Facility: [facility] Address: [address] [place] [address] Performed By: #### 2 532-0, 32122-3, 4- #### [facility] CLIA [id number] [address] [place] [address] RBC (Bld) [#/Vol] 4.48 10*6/uL Normal 3.90-5.[address] [facility] Comment on above: Order Comment: Speci men Type: BLOOD SPECIMEN Ordering Facility: [facility] Address: [address] [place] [address] Performed By: #### 2 532-0, 42082-6, 3083- #### [facility] CLIA [id number] [address] [place] [address] 12780 RED CELL MORPH Reviewed: see result s of individual morphologies Normal [facility] Comment on above: Order Comment: Speci men Type: BLOOD SPECIMEN Ordering Facility: [facility] Address: [address] [place] [address] Performed By: #### 2 532-0, 46759-6, 3083- #### [facility] CLIA [id number] [address] [place] [address] 01089 WBC (Bld) [#/Vol] 24.93 10*3/uL High 3.70-11.00 [facility] Comment on above: Order Comment: Speci men Type: BLOOD SPECIMEN Ordering Facility: [facility] Address: [address] [place] [address] Performed By: #### 2 532-0, 94876-5, 3083- #### [facility] [place] [id number] [address] [place] [address] 10519 CNOVSPon 05-09-2023 CNOVSP Visit (SP) Office (HEMASA) NADEEN OQUENDO ([id number]) 1950 F Date Time Provider Department 05/09/23 10:00 AM FERNANDO HANNA During your visit today, we recorded the following information about you: Temperature Pulse Respiration Blood pressure 98 degrees 65/minute 16/minute 140/73 Weight Height 61.6 kg 1.753 m Fernando Hanna MD 05/09/2023 6:22 PM Signed NAME: Nadeen Oquendo CLINIC NO.: [id number] DATE OF SERVICE: May 09, 2023 (Jaime) Some elements in this clinic note that are critical to medical decision making have been carefully reviewed and included from a prior clinic note dated: November 08, 2022 (Jaime) Referring Provider: Dr. Schuyler Barlow Additional Clinicians involved in Nadeen Oquendo's care: CC: CLL diagnosed 2014. ASSESSMENT: Chronic lymphocytic leukemia (HCC) - ICD9: 204.10, ICD10: C91.90 Her counts remain stable and she is asymptomatic. We will continue to monitor her counts every 6 months and see her in follow up. IGVH Mutated FISH normal - intermediate risk. Getting screening CT's with Dr. Barlow for high risk lung cancer. PLAN: Follow up in 6 months. Lab draw same day. Continue following with Dr. Barlow - HPI: CASE HISTORY: Reverse Chronological Order [...] and labs are stable. 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 [...] in the next week. 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 [...] of inappropria (more content not included)... Normal [facility] Comprehensive metabolic 2000 panelon 05-09-2023 Albumin [Mass/Vol] 4.8 g/dL Normal 3.9-4.9 [facility] Comment on above: Order Comment: Nando mike Type: BLOOD SPECIMEN Ordering Facility[facility] Address: [address] [place] [address] Performed By: #### 2 532-0, 72739-5, 3084-1 #### [facility] CLIA [id number] [address] [place] [address] 15285 ALP [Catalytic activity/Vol] 80 U/L Normal 34-123 [facility] Comment on above: Order Comment: Nando mike Type: BLOOD SPECIMEN Ordering Facility: [facility] Address: [address] [place] [address] Performed By: #### 2 532-0, 90905-2, 3083-1 #### [facility] CLIA [id number] [address] [place] [address] 97609 ALT [Catalytic activity/Vol] 12 U/L Normal 7-38 [facility] Comment on above: Order Comment: Speci men Type: BLOOD SPECIMEN Ordering Facility: [facility] Address: [address] [place] [address] Performed By: #### 2 532-0, 11831-3, 3083- #### [facility] CLIA [id number] [address] [place] [address] 39158 Anion gap [Moles/Vol] 10 mmol/L Normal 9-18 [facility] Comment on above: Order Comment: Speci men Type: BLOOD SPECIMEN Ordering Facility: [facility] Address: [facility] [place] [address] Performed By: #### 2 532-0, 15935-4, 3083- #### [facility] CLIA [id number] [address] [place] [address] 85332 AST [Catalytic activity/Vol] 17 U/L Normal 13-35 [facility] Comment on above: Order Comment: Speci men Type: BLOOD SPECIMEN Ordering Facility: [facility] Address: [address] [place] [address] Performed By: #### 2 532-0, 65216-4, 3083- #### [facility] CLIA [id number] [address] [place] [address] 17340 Bilirubin [Mass/Vol] 0.4 mg/dL Normal 0.2-1.3 [facility] Comment on above: Order Comment: Speci men Type: BLOOD SPECIMEN Ordering Facility: [facility] Address: [address] [place] [address] Performed By: #### 2 532-0, 07222-2, 3083-1 #### [facility] CLIA [id number] [address] [place] [address] 06933 Calcium [Mass/Vol] 9.8 mg/dL Normal 8.5-10.2 [facility] Comment on above: Order Comment: Speci men Type: BLOOD SPECIMEN Ordering Facility: [facility] Address: [address] [place] [address] Performed By: #### 2 532-0, 27407-2, 4-1 #### [facility] CLIA [id number] [address] [place] [address] 07136 Chloride [Moles/Vol] 103 mmol/L Normal 97-105 [facility] Comment on above: Order Comment: Speci men Type: BLOOD SPECIMEN Ordering Facility: [facility] Address: [address] [place] [address] Performed By: #### 2 532-0, 64354-6, 3083-1 #### [facility] CLIA [id number] [address] [place] [address] 40669 CO2 [Moles/Vol] 25 mmol/L Normal 22-30 [facility] Comment on above: Order Comment: Speci men Type: BLOOD SPECIMEN Ordering Facility: [facility] Address: [address] [place] [address] 48827 Performed By: #### 2 532-0, 69172-4, 3083- #### [facility] CLIA [id number] [address] [place] [address] 01173 Creatinine [Mass/Vol] 0.80 mg/dL Normal 0.58-0.96 [facility] Comment on above: Order Comment: Speci men Type: BLOOD SPECIMEN Ordering Facility: [facility] Address: [address] [place] [address] 326[address] Performed By: #### 2 532-0, 59664-3, 3083-1 #### [facility] CLIA [id number] [address] [place] [address] 74622 Creatinine and Glomerular filtration rate.predicted panel (S/P/Bld) 77 mL/min/1.73m??? Normal >=60 [facility] Comment on above: Order Comment: Speci men Type: BLOOD SPECIMEN Ordering Facility: [facility] Address: [address] [place] [address] Result Comment: Juliann mated Glomerular Filtration Rate [...] actual GFR. Performed By: #### 2 532-0, 90975-4, 308-1 #### [facility] CLIA [id number] [address] [place] [address] 55934 Glucose [Mass/Vol] 98 mg/dL Normal 74-99 [facility] Comment on above: Order Comment: Nando mike Type: BLOOD SPECIMEN Ordering Facility: [facility] Address: [address] [place] [address] Result Comment: The [place] Diabetes [employer] (ADA) provides guidance for cutoff [...] Standards of Medical Care in Diabetes 2016, [place] [employer]. Diabetes Care. 2016.39(Suppl 1). Performed By: #### 2 532-0, 37849-0, 308-1 #### [facility] CLIA [id number] [address] [place] [address] 38350 Potassium [Moles/Vol] 5.0 mmol/L Normal 3.7-5.1 [facility] Comment on above: Order Comment: Nando mike Type: BLOOD SPECIMEN Ordering Facility: [facility] Address: [address] [place] [address] Performed By: #### 2 532-0, 57106-6, 3083-1 #### [facility] CLIA [id number] [address] [place] [address] 94511 Protein [Mass/Vol] 6.7 g/dL Normal 6.3-8.0 [facility] Comment on above: Order Comment: Speci men Type: BLOOD SPECIMEN Ordering Facility: [facility] Address: [address] [place] [address] Performed By: #### 2 532-0, 47284-1, 3083- #### [facility] CLIA [id number] [address] [place] [address] 63324 Sodium [Moles/Vol] 138 mmol/L Normal 136-144 [facility] Comment on above: Order Comment: Speci men Type: BLOOD SPECIMEN Ordering Facility: [facility] Address: [address] [place] [address] Performed By: #### 2 532-0, 80393-4, 3083-03 #### [facility] CLIA [id number] [address] [place] [address] 05015 Urea nitrogen [Mass/Vol] 13 mg/dL Normal 7-21 [facility] Comment on above: Order Comment: Speci men Type: BLOOD SPECIMEN Ordering Facility: [facility] Address: [address] [place] [address] Performed By: #### 2 532-0, 13781-7, 3083- #### [facility] CLIA [id number] [address] [place] [address] 21355 Eosinophils/100 WBC Auto (Bl d)on 05-09-2023 Eosinophils/100 WBC (Bld) 1.0 % [facility] Erythrocyte distribution wid th Auto (RBC) [Ratio]on 05-09-2023 Erythrocyte distribution width (RBC) [Ratio] 13.1 % 11.5-15.0 [facility] Hematocrit Auto (Bld) [Volum e fraction]on 05-09-2023 Hematocrit (Bld) [Volume fraction] 42.7 % 36.0-46.0 [facility] Hemoglobin [Mass/volume] in Bloodon 05-09-2023 Hemoglobin (Bld) [Mass/Vol] 14.4 g/dL 11.5-15.5 [facility] LDH SerPl-cCncon 05-09-2023 LDH [Catalytic activity/Vol] 180 U/L Normal 135-214 [facility] Comment on above: Order Comment: Speci men Type: BLOOD SPECIMEN Ordering Facility: [facility] Address: [address] [place] [address] Result Comment: Hemo lysis present. The origin of the hemolysis, in vitro versus an in vivo hemolytic process, cannot be distinguished via this assay alone. In vitro hemolysis may lead to non-physiological (spurious) elevation in lactate dehydrogenase (LDH) results. The result should be interpreted in context of the clinical setting and other test results. Suggest reorder as clinically indicated. Performed By: #### 2 532-0, 41590-0, 3084-1 #### [facility] CLIA [id number] [address] [place] [address] Laboratory - Chemistry and C hemistry - challengeon 05-09-2023 Albumin [Mass/Vol] 4.8 g/dL 3.9-4.9 [facility] ALP [Catalytic activity/Vol] 80 U/L 34-123 [facility] ALT [Catalytic activity/Vol] 12 U/L 7-38 [facility] AST [Catalytic activity/Vol] 17 U/L 13-35 [facility] Bilirubin [Mass/Vol] 0.4 mg/dL 0.2-1.3 [facility] Calcium [Mass/Vol] 9.8 mg/dL 8.5-10.2 [facility] Chloride [Moles/Vol] 103 mmol/L 97-105 [facility] CO2 [Moles/Vol] 25 mmol/L 22-30 [facility] Creatinine [Mass/Vol] 0.80 mg/dL 0.58-0.96 [facility] Glucose [Mass/Vol] 98 mg/dL 74-99 [facility] Comment on above: The [place] Diab[employer] Association (ADA) provides guidance for [...] Standards of Medical Care in Diabetes 2016, [place] [employer]. Diabetes Care. 2016.39(Suppl 1). LDH [Catalytic activity/Vol] 180 U/L 135-214 [facility] Comment on above: Hemolysis present. T [...] clinically indicated. Potassium [Moles/Vol] 5.0 mmol/L 3.7-5.1 [facility] Protein [Mass/Vol] 6.7 g/dL 6.3-8.0 [facility] Sodium [Moles/Vol] 138 mmol/L 136-144 [facility] Urate [Mass/Vol] 4.7 mg/dL 2.5-6.6 [facility] Urea nitrogen [Mass/Vol] 13 mg/dL 7-21 [facility] Laboratory - Hematology and Cell countson 05-09-2023 Eosinophils (Bld) [#/Vol] 0.25 10*3/uL <0.46 [facility] Leukocytes [#/volume] correc dudley for nucleated erythrocytes in Blood by Automated counon 05-09-2023 WBC corrected for nucl RBC Auto (Bld) [#/Vol] 24.93 k/uL 3.70-11.00 [facility] Lymphocytes Auto (Bld) [#/Vo l]on 05-09-2023 Lymphocytes (Bld) [#/Vol] 19.20 10*3/uL 1.00-4.00 [facility] Lymphocytes/100 WBC Auto (Bl d)on 05-09-2023 Lymphocytes/100 WBC (Bld) 77.0 % [facility] MCH Auto (RBC) [Entitic mass ]on 05-09-2023 MCH (RBC) [Entitic mass] 32.1 pg 26.0-34.0 [facility] MCHC Auto (RBC) [Mass/Vol]on 05-09-2023 MCHC (RBC) [Mass/Vol] 33.7 g/dL 30.5-36.0 [facility] MCV Auto (RBC) [Entitic vol] on 05-09-2023 MCV (RBC) [Entitic vol] 95.3 fL 80.0-100.0 [facility] Monocytes Auto (Bld) [#/Vol] on 05-09-2023 Monocytes (Bld) [#/Vol] 0.50 10*3/uL <0.87 [facility] Monocytes/100 WBC Auto (Bld) on 05-09-2023 Monocytes/100 WBC (Bld) 2.0 % [facility] Neutrophils Auto (Bld) [#/Vo l]on 05-09-2023 Neutrophils (Bld) [#/Vol] 4.99 10*3/uL 1.45-7.50 [facility] Neutrophils/100 WBC Auto (Bl d)on 05-09-2023 Neutrophils/100 WBC (Bld) 20.0 % [facility] No Panel Informationon 05-09 Estimated GFR (CKD-EPI) 77 mL/min/1.73m??? >=60 [facility] Comment on above: Estimated Glomerular Filtration [...] Morphology Reviewed: see results of individual morphologies [facility] Nucleated RBC Auto (Bld) [#/ Vol]on 05-09-2023 Nucleated RBC (Bld) [#/Vol] 10*3/uL <0.01 [facility] Nucleated erythrocytes [Pres ence] in Blood by Automated counton 05-09-2023 Nucleated RBC Auto Ql (Bld) 0.0 /100{WBC} [facility] Ovalocyte detectionon 2023 Ovalocytes LM Ql (Bld) Few [facility] Platelet adequacy [Presence] in Blood by Light microscopyon 05-09-2023 Platelets LM Ql (Bld) Adequate [facility] Platelet mean volume Auto (B ld) [Entitic vol]on 05-09-2023 Platelet mean volume (Bld) [Entitic vol] 9.9 fL 9.0-12.7 [facility] Platelets Auto (Bld) [#/Vol] on 05-09-2023 Platelets (Bld) [#/Vol] 228 10*3/uL 150-400 [facility] RBC Auto (Bld) [#/Vol]on RBC (Bld) [#/Vol] 4.48 10*6/uL 3.90-5.20 [facility] Serum or plasma anion gap de terminationon 05-09-2023 Anion gap [Moles/Vol] 10 mmol/L 9-18 [facility] Urate SerPl-mCncon Urate [Mass/Vol] 4.7 mg/dL Normal 2.5-6.6 [facility] Comment on above: Order Comment: Speci men Type: BLOOD SPECIMEN [facility] Address: [address] [place] [address] Performed By: #### 2 532-0, 60387-3, 3084-1 #### [facility] CLIA [id number] [address] [place] [address] 02810 XR foot RT min 3V*on 023 XR foot RT min 3V* [facility] [address] [place] [address] [place] [address] XRay Report Signed Patient: Nadeen Oquendo MR#: [id number] : 1950 Acct:[id number] Age/Sex: 72 / F ADM Date: 12/04/22 Loc: XDUCLY Room: Type: [facility] CLI Attending Dr: Daija SEWELL Copies to: DONATO [...] Dorita Garcia M.D.12/04/2022 12:47 PM Dictation Location: [place] [address] Transcribed By: [facility] 12/04/22 1247 Dictated By: Dorita Garcia II, MD 12/04/22 1242 Signed By: 12/04/22 1247 Normal [facility] XR foot RT min 3V* [facility] [employer] Other XR foot RT min 3V* [facility] [employer] Other XR foot RT min 3V* [address] [place] [address] [employer] Other XR foot RT min 3V* [place] [address] [employer] Other XR foot RT min 3V* XRay Report [employer] Other XR foot RT min 3V* Signed [employer] Other XR foot RT min 3V* Patient: Nadeen Oquendo MR#: [id number] [employer] Other XR foot RT min 3V* [address] [employer] Other XR foot RT min 3V* : 1950 Acct:[id number] [employer] Other XR foot RT min 3V* Age/Sex: 72 / F ADM Date: 12/04/22 [employer] Other XR foot RT min 3V* Loc: XDUCLY Room: pe: REG CLI [employer] Other XR foot RT min 3V* Attending Dr: Daija SEWELL [employer] Other XR foot RT min 3V* Copies to: DOANTO Ward [employer] Other XR foot RT min 3V* Ordering Provider: DONATO Ward [employer] Other XR foot RT min 3V* Date of Service: 12/04/22 [employer] Other XR foot RT min 3V* XR/XR foot RT min 3V*: RIGHT FOOT PAIN [employer] Other XR foot RT min 3V* XR foot RT min 3V* 12/04/2022 12:32 PM [employer] Other XR foot RT min 3V* SIGNS AND SYMPTOMS: Pain over the dorsal aspect of the right foot. The metatarsals [employer] Other XR foot RT min 3V* PROTOCOL: Frontal, lateral, and oblique radiographs of the right foot [employer] Other XR foot RT min 3V* COMPARISON: None [employer] Other XR foot RT min 3V* FINDINGS: [employer] Other XR foot RT min 3V* The bones are in anatomic alignment. The joint spaces are preserved. There is no evidence of [employer] Other XR foot RT min 3V* fracture or dislocation. [employer] Other XR foot RT min 3V* XR/XR foot RT min 3V* [employer] Other XR foot RT min 3V* IMPRESSION: [employer] Other XR foot RT min 3V* No fracture or dislocation. [employer] Other XR foot RT min 3V* No significant soft tissue swelling. [employer] Other XR foot RT min 3V* Impression dictated by: Dorita Garcia M.D.12/04/2022 12:47 PM [employer] Other XR foot RT min 3V* Dictation Location: [employer]13 [employer] Other XR foot RT min 3V* Transcribed By: NICK 12/04/22 [facility] [employer] Other XR foot RT min 3V* Dictated By: Dorita Garcia II, MD 12/04/22 [facility] [employer] Other XR foot RT min 3V* Signed By: [employer] Other XR foot RT min 3V* 12/04/[address] [place] [address] [employer] Other CBC W Auto Differential pane l (Bld)on 11-08-2022 Basophils (Bld) [#/Vol] 0.00 10*3/uL Normal <0.11 [facility] Comment on above: Order Comment: Speci men Type: BLOOD SPECIMEN Ordering Facility: [facility] Address: [address] [place] [address] Performed By: #### 2 532-0, 33879-0, 3084-1 #### [facility] CLIA [id number] [address] [place] [address] 21320 Basophils/100 WBC (Bld) 0.0 % Normal [facility] Comment on above: Order Comment: Speci men Type: BLOOD SPECIMEN Ordering Facility: [facility] Address: [address] [place] [address] Performed By: #### 2 532-0, 97841-0, 3083-03 #### [facility] CLIA [id number] [address] [place] [address] 28473 Differential cell count method Nom (Bld) Manual Normal [facility] Comment on above: Order Comment: Speci men Type: BLOOD SPECIMEN Ordering Facility: [facility] Address: [address] [place] [address] Performed By: #### 2 532-0, 10856-5, 3083-03 #### [facility] CLIA [id number] [address] [place] [address] 32410 Eosinophils (Bld) [#/Vol] 0.00 10*3/uL Normal <0.46 [facility] Comment on above: Order Comment: Speci men Type: BLOOD SPECIMEN Ordering Facility: [facility] Address: [address] [place] [address] Performed By: #### 2 532-0, , 3083-03 #### [facility] CLIA [id number] [address] [place] [address] 95553 Eosinophils/100 WBC (Bld) 0.0 % Normal [facility] Comment on above: Order Comment: Speci men Type: BLOOD SPECIMEN Ordering Facility: [facility] Address: [address] [place] [address] Performed By: #### 2 532-0, , 3083-03 #### [facility] CLIA [id number] [address] [place] [address] 22531 Erythrocyte distribution width (RBC) [Ratio] 13.0 % Normal 11.5-15.0 [facility] Comment on above: Order Comment: Speci men Type: BLOOD SPECIMEN Ordering Facility: [facility] Address: [address] [place] [address] Performed By: #### 2 532-0, 80575-4, 3083-03 #### [facility] CLIA [id number] [address] [place] [address] 43968 Hematocrit (Bld) [Volume fraction] 41.2 % Normal 36.0-46.0 [facility] Comment on above: Order Comment: Speci men Type: BLOOD SPECIMEN Ordering Facility: [facility] Address: [address] [place] [address] Performed By: #### 2 532-0, 64095-7, 3083-03 #### [facility] CLIA [id number] [address] [place] [address] 34091 Hemoglobin (Bld) [Mass/Vol] 13.7 g/dL Normal 11.5-15.5 [facility] Comment on above: Order Comment: Speci men Type: BLOOD SPECIMEN Ordering Facility: [facility] Address: [address] [place] [address] 18301 Performed By: #### 2 532-0, 91578-3, 3083-03 #### [facility] CLIA [id number] [address] [place] [address] 46934 Lymphocytes (Bld) [#/Vol] 18.39 10*3/uL High 1.00-4.00 [facility] Comment on above: Order Comment: Speci men Type: BLOOD SPECIMEN Ordering Facility: [facility] Address: [address] [place] [address] 43545 Performed By: #### 2 532-0, 89413-0, 3083-03 #### [facility] CLIA [id number] [address] [place] [address] 33169 Lymphocytes/100 WBC (Bld) 81.0 % Normal [facility] Comment on above: Order Comment: Speci men Type: BLOOD SPECIMEN Ordering Facility: [facility] Address: [address] [place] [address] 46756 Performed By: #### 2 532-0, 35402-0, 3083-03 #### [facility] CLIA [id number] [address] [place] [address] 84619 MCH (RBC) [Entitic mass] 31.5 pg Normal 26.0-34.0 [facility] Comment on above: Order Comment: Speci men Type: BLOOD SPECIMEN Ordering Facility: [facility] Address: [address] [place] [address] 95353 Performed By: #### 2 532-0, 09333-8, 3083-03 #### [facility] CLIA [id number] [address] [place] [address] 72459 MCHC (RBC) [Mass/Vol] 33.3 g/dL Normal 30.5-36.0 [facility] Comment on above: Order Comment: Speci men Type: BLOOD SPECIMEN Ordering Facility: [facility] Address: [address] [place] [address] Performed By: #### 2 532-0, 85274-9, 3083-03 #### [facility] CLIA [id number] [address] [place] [address] 48943 MCV (RBC) [Entitic vol] 94.7 fL Normal 80.0-100.0 [facility] Comment on above: Order Comment: Speci men Type: BLOOD SPECIMEN Ordering Facility: [facility] Address: [address] [place], [place] [address] Performed By: #### 2 532-0, , 3083-03 #### [facility] CLIA [id number] [address] [place] [address] 25501 Monocytes (Bld) [#/Vol] 0.23 10*3/uL Normal <0.87 [facility] Comment on above: Order Comment: Speci men Type: BLOOD SPECIMEN Ordering Facility: [facility] Address: [address] [place] [address] 81819 Performed By: #### 2 532-0, , 3083-03 #### [facility] CLIA [id number] [address] [place] [address] 12418 Monocytes/100 WBC (Bld) 1.0 % Normal [facility] Comment on above: Order Comment: Speci men Type: BLOOD SPECIMEN Ordering Facility: [facility] Address: [address] [place] [address] 79820 Performed By: #### 2 532-0, 80033-8, 3083-03 #### [facility] CLIA [id number] [address] [place] [address] 37681 Neutrophils (Bld) [#/Vol] 4.09 10*3/uL Normal 1.45-7.50 [facility] Comment on above: Order Comment: Speci men Type: BLOOD SPECIMEN Ordering Facility: [facility] Address: [address] [place] [address] Performed By: #### 2 532-0, 84657-3, 3083-03 #### [facility] CLIA [id number] [address] [place] [address] 93281 Neutrophils/100 WBC (Bld) 18.0 % Normal [facility] Comment on above: Order Comment: Speci men Type: BLOOD SPECIMEN Ordering Facility: [facility] Address: [address] [place] [address] Performed By: #### 2 532-0, , 3083-03 #### [facility] CLIA [id number] [address] [place] [address] 39094 Nucleated RBC (Bld) [#/Vol] 10*3/uL Normal <0.01 [facility] Comment on above: Order Comment: Speci men Type: BLOOD SPECIMEN Ordering Facility: [facility] Address: [address] [place] [address] Performed By: #### 2 532-0, , 3083-03 #### [facility] CLIA [id number] [address] [place] [address] 14734 Nucleated RBC/100 WBC (Bld) [Ratio] 0.0 /100 WBC Normal [facility] Comment on above: Order Comment: Speci men Type: BLOOD SPECIMEN Ordering Facility: [facility] Address: [address] [place] [address] Performed By: #### 2 532-0, 73836-6, 3083-03 #### [facility] CLIA [id number] [address] [place] [address] 91049 Ovalocytes LM Ql (Bld) Few Normal [facility] Comment on above: Order Comment: Speci men Type: BLOOD SPECIMEN Ordering Facility: [facility] Address: [address] [place] [address] 20736 Performed By: #### 2 532-0, 37447-2, 3083-03 #### [facility] CLIA [id number] [address] [place] [address] 28661 Platelet mean volume (Bld) [Entitic vol] 9.8 fL Normal 9.0-12.7 [facility] Comment on above: Order Comment: Speci men Type: BLOOD SPECIMEN Ordering Facility: [facility] Address: [address] [place] [address] 57098 Performed By: #### 2 532-0, 86605-7, 3083-03 #### [facility] CLIA [id number] [address] [place] [address] 34086 Platelets (Bld) [#/Vol] 215 10*3/uL Normal 150-400 [facility] Comment on above: Order Comment: Speci men Type: BLOOD SPECIMEN Ordering Facility: [facility] Address: [address] [place] [address] 75795 Performed By: #### 2 532-0, , 3083-03 #### [facility] CLIA [id number] [address] [place] [address] 83988 Platelets Estimate (Bld) [#/Vol] Adequate Normal [facility] Comment on above: Order Comment: Speci men Type: BLOOD SPECIMEN Ordering Facility: [facility] Address: [address] [place] [address] 05057 Performed By: #### 2 532-0, 00779-3, 3083-03 #### [facility] CLIA [id number] [address] [place] [address] 16475 RBC (Bld) [#/Vol] 4.35 10*6/uL Normal 3.90-5.[address] [facility] Comment on above: Order Comment: Speci men Type: BLOOD SPECIMEN Ordering Facility: [facility] Address: [address] [place], [place] [address] [address] Performed By: #### 2 532-0, 78496-6, 3084-1 #### [facility] CLIA [id number] [address] [place] [address] 94390 RED CELL MORPH Reviewed: see result s of individual morphologies Normal [facility] Comment on above: Order Comment: Speci men Type: BLOOD SPECIMEN Ordering Facility: [facility] Address: [address] [place] [address] Performed By: #### 2 532-0, 60065-4, 3084-1 #### [facility] CLIA [id number] [address] [place] [address] 30941 WBC (Bld) [#/Vol] 22.70 10*3/uL High 3.70-11.00 [facility] Comment on above: Order Comment: Speci men Type: BLOOD SPECIMEN [facility]ing [facility] Address: [address] [facility] [place] [address] Performed By: #### 2 532-0, 85585-3, 3084-1 #### [facility] CLIA [id number] [address] [place] [address] 56125 CNOVSPon 11-08-2022 CNOVS Visit (SP) Office ([place]) NADEEN OQUENDO ([id number]) 1950 F Date Time Provider Department 11/08/22 9:45 AM FERNANDO HANNA During your visit today, we recorded the following information about you: Temperature Pulse Respiration Blood pressure 97.4 degrees 65/minute 16/minute 118/54 Weight Height 62.8 kg 1.753 m Fernando Hanna MD 11/08/2022 12:52 PM Signed NAME: Nadeen Oquendo NO.: [id number] DATE OF SERVICE: November 08, 2022 (Jaime) Some elements in this clinic note that are critical to medical decision making have been carefully reviewed and included from a prior clinic note dated: May 11, 2022 (Douglas) AND November 09, 2021 (Jaime) Referring Provider: Dr. Schuyler Barlow Additional Clinicians involved in Nadeen Oquendo's care: [...] and labs are stable. 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 [...] in the next week. 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 [...] Value 11/09/19 (more content not included)... Normal [facility] Comprehensive metabolic 2000 panelon 11-08-2022 Albumin [Mass/Vol] 4.8 g/dL Normal 3.9-4.9 [facility] Comment on above: Order Comment: Speci men Type: BLOOD SPECIMEN Ordering Facility: [facility] Address: [address] [place] [address] Performed By: #### 2 532-0, 89196-4, 3084-1 #### [facility] CLIA [id number] [address] [place] [address] 77395 ALP [Catalytic activity/Vol] 88 U/L Normal 34-123 [facility] Comment on above: Order Comment: Speci men Type: BLOOD SPECIMEN Ordering Facility: [facility] Address: [address] [place] [address] Performed By: #### 2 532-0, 36718-3, 4-1 #### [facility] CLIA [id number] [address] [place] [address] 92762 ALT [Catalytic activity/Vol] 14 U/L Normal 7-38 [facility] Comment on above: Order Comment: Speci men Type: BLOOD SPECIMEN Ordering Facility: [facility] Address: [address] [place] [address] Performed By: #### 2 532-0, 27387-4, 4-1 #### [facility] CLIA [id number] [address] [place] [address] 56338 Anion gap [Moles/Vol] 10 mmol/L Normal 9-18 [facility] Comment on above: Order Comment: Speci men Type: BLOOD SPECIMEN Ordering Facility: [facility] Address: [address] [place] [phone] Performed By: #### 2 532-0, 05365-9, 3084-1 #### [facility] CLIA [id number] [address] [place] [address] 52996 AST [Catalytic activity/Vol] 18 U/L Normal 13-35 [facility] Comment on above: Order Comment: Speci men Type: BLOOD SPECIMEN Ordering Facility: [facility] Address: [address] [place], [place] [address] Performed By: #### 2 532-0, 04071-4, 3083-1 #### [facility] CLIA [id number] [address] [place] [address] 30706 Bilirubin [Mass/Vol] 0.3 mg/dL Normal 0.2-1.3 [facility] Comment on above: Order Comment: Speci men Type: BLOOD SPECIMEN Ordering Facility: [facility] Address: [address] [place] [address] Performed By: #### 2 532-0, 72276-2, 3083- #### [facility] CLIA [id number] [address] [place] [address] 73791 Calcium [Mass/Vol] 9.3 mg/dL Normal 8.5-10.2 [facility] Comment on above: Order Comment: Speci men Type: BLOOD SPECIMEN Ordering Facility: [facility] Address: [address] [place] [address] Performed By: #### 2 532-0, 92016-4, 3083- #### [facility] CLIA [id number] [address] [place] [address] 43303 Chloride [Moles/Vol] 101 mmol/L Normal 97-105 [facility] Comment on above: Order Comment: Speci men Type: BLOOD SPECIMEN Ordering Facility: [facility] Address: [address] [place] [address] 33166 Performed By: #### 2 532-0, 04673-6, 3083-1 #### [facility] CLIA [id number] [address] [place] [address] 25252 CO2 [Moles/Vol] 25 mmol/L Normal 22-30 [facility] Comment on above: Order Comment: Speci men Type: BLOOD SPECIMEN Ordering Facility: [facility] Address: [address] [place] [address] Performed By: #### 2 532-0, 01138-2, 3083-1 #### [facility] CLIA [id number] [address] [place] [address] 68389 Creatinine [Mass/Vol] 0.83 mg/dL Normal 0.58-0.96 [facility] Comment on above: Order Comment: Speci men Type: BLOOD SPECIMEN Ordering Facility: [facility] Address: [address] [place], [place] [address] Performed By: #### 2 532-0, 22725-6, 3083-1 #### [facility] CLIA [id number] [address] [place] [address] 56612 Creatinine and Glomerular filtration rate.predicted panel (S/P/Bld) 74 mL/min/1.73m??? Normal >=60 [facility] Comment on above: Order Comment: Speci men Type: BLOOD SPECIMEN Ordering Facility: [facility] Address: [address] [place] [address] Result Comment: Juliann mated Glomerular Filtration Rate [...] actual GFR. Performed By: #### 2 532-0, 43531-5, 3083- #### [facility] CLIA [id number] [address] [place] [address] 59030 Glucose [Mass/Vol] 90 mg/dL Normal 74-99 [facility] Comment on above: Order Comment: Speci men Type: BLOOD SPECIMEN Ordering Facility: [facility] Address: [address] [place], [place] [address] Result Comment: The [place] [employer] (ADA) provides guidance for cutoff [...] Standards of Medical Care in Diabetes 2016, [place] [employer]. Diabetes Care. 2016.39(Suppl 1). Performed By: #### 2 532-0, 38435-4, 3083- #### [facility] CLIA [id number] [address] [place] [address] Potassium [Moles/Vol] 4.5 mmol/L Normal 3.7-5.1 [facility] Comment on above: Order Comment: Speci men Type: BLOOD SPECIMEN Ordering Facility[facility] Address: [address] [place] [address] Performed By: #### 2 532-0, 49670-7, 3083-03 #### [facility] CLIA [id number] [address] [place] [address] 18139 Protein [Mass/Vol] 6.5 g/dL Normal 6.3-8.0 [facility] Comment on above: Order Comment: Speci men Type: BLOOD SPECIMEN Ordering Facility: [facility] Address: [address] [place] [address] Performed By: #### 2 532-0, 65122-5, 3083-03 #### [facility] CLIA [id number] [address] [place] [address] Sodium [Moles/Vol] 136 mmol/L Normal 136-144 [facility] Comment on above: Order Comment: Speci men Type: BLOOD SPECIMEN Ordering Facility[facility] Address: [address] [place] [address] Performed By: #### 2 532-0, 15601-5, 3083- #### [facility] CLIA [id number] [address] [place] [address] Urea nitrogen [Mass/Vol] 11 mg/dL Normal 7-21 [facility] Comment on above: Order Comment: Speci men Type: BLOOD SPECIMEN Ordering Facility[facility] Address: [address] [place] [address] Performed By: #### 2 532-0, 75724-7, 3084-1 #### [facility] [place] [id number] [address] [place], [place] [address] LDH SerPl-cCncon 11-08-2022 LDH [Catalytic activity/Vol] 171 U/L Normal 135-214 [facility] Comment on above: Order Comment: Speci men Type: BLOOD SPECIMEN Ordering Facility[facility] Address: [address] [place] [address] Performed By: #### 2 532-0, 44786-2, 3084-1 #### [facility] [place] [id number] [address] [place], [place] [address] Urate SerPl-mCncon 3 Urate [Mass/Vol] 4.5 mg/dL Normal 2.5-6.6 [facility] Comment on above: Order Comment: Janiai men Type: BLOOD SPECIMEN Ordering [facility] Address: [address] [place] [address] Performed By: #### 2 532-0, 16991-7, 3084-1 #### [facility] [place] [id number] [address] [place] [address] 26083 Antolin 08-19-2022 L --- Specimen: [id number] Received: 08/19/22 Status: BERTA Lagunas Num: [id number] Spec Type: Surgical Subm Dr: Jake Mireles MD Tissues: A Colon Biopsy (SIGMOID POLYP) B Colon Biopsy (RECTAL POLYP) Procedures: HE/4, Gross/Micro L4/2 Age/ Patient Sex Location Account Attending Physician Nadeen Oquendo 71/F [id number] Jake Mireles MD SPEC NUM: [id number] RECD: 08/19/22 STATUS: BERTA LAGUNAS NUM: [id number] DARI: 08/19/22- SUBM DR: Jake Mireles MD ENTERED: 08/19/22-[address]: SPEC TYPE: Surgical DEPT: S ORDERED: HE/4, Gross/Micro [...] submitted in one cassette labeled B1. Specimen: [id number] Received: 08/19/22 Status: EBRTA Lagunas Num: [id number] Spec Type: Surgical Subm Dr: Jake Mireles MD Tissues: A Colon Biopsy (SIGMOID POLYP) B Colon Biopsy (RECTAL POLYP) Procedures: HE/Channing, Gross/Micro L4/2 Patient: Nadeen Oquendo [id number] (Continued) Specimen: [id number] Received: 08/19/22 (Continued) Signed (signature on file) Lyn Velez MD 08/20/22 1017 Specimen: [id number] Received: 08/19/22 Status: BERTA Lagunas Num: [id number] Spec Type: Surgical Subm Dr: Jake Mireles MD Tissues: A Colon Biopsy (SIGMOID POLYP) B Colon Biopsy (RECTAL POLYP) Procedures: HE/4, Gross/Micro L4/2 Patient: Nataliia Oquendocruz Mitchell [id number] (Continued) Specimen: [id number] Received: 08/19/22 (Continued) Microscopic Description A. Two H E slides reviewed. The microscopic examination confirms the diagnosis. B. Two H E slides reviewed. The microscopic examination confirms the diagnosis. CPT Codes 39350m1 Specimen: [id number] Received: 08/19/22 Status: BERTA Lagunas Num: [id number] Spec Type: Surgical Subm Dr: Jake Mireles MD Tissues: A Colon Biopsy (SIGMOID POLYP) B Colon Biopsy (RECTAL POLYP) Procedures: HE/Channing, Gross/Micro L4/2 Patient: Nadeen Oquendo [id number] (Continued) Signed (signature on file) Lyn Velez MD 08/20/22 1017 [facility] Comprehensive metabolic 2000 panelon 05-10-2022 Albumin [Mass/Vol] 4.7 g/dL 3.9 - 4.9 g/dL [facility] ALP [Catalytic activity/Vol] 80 U/L 34 - 123 U/L [facility] ALT [Catalytic activity/Vol] 12 U/L 7 - 38 U/L [facility] Anion gap [Moles/Vol] 9 mmol/L 9 - 18 mmol/L [facility] AST [Catalytic activity/Vol] 19 U/L 13 - 35 U/L [facility] Bilirubin [Mass/Vol] 0.3 mg/dL 0.2 - 1.3 mg/dL [facility] Calcium [Mass/Vol] 10.0 mg/dL 8.5 - 10. 2 mg/dL [facility] Chloride [Moles/Vol] 102 mmol/L 97 - 105 mmol/L [facility] CO2 [Moles/Vol] 26 mmol/L 22 - 30 mmol/L [facility] Creatinine [Mass/Vol] 0.87 mg/dL 0.58 - 0.96 mg/dL [facility] Estimated Glomerular Filtration Rate 70 mL/min/1.73m >=60 mL/min/1.73m [facility] Glucose [Mass/Vol] 93 mg/dL 74 - 99 mg/dL [facility] Potassium [Moles/Vol] 4.4 mmol/L 3.7 - 5.1 mmol/L [facility] Protein [Mass/Vol] 6.6 g/dL 6.3 - 8.0 g/dL [facility] Sodium [Moles/Vol] 137 mmol/L 136 - 144 mmol/L [facility] Urea nitrogen [Mass/Vol] 10 mg/dL 7 - 21 mg/dL [facility] LD LACTATE DEHYDROon 023 LDH [Catalytic activity/Vol] 172 U/L 135 - 214 U/L [facility] URIC ACID BLOODon 05-10-2022 Urate [Mass/Vol] 4.3 mg/dL 2.5 - 6.6 mg/dL [facility] CT CSPINE WO CONon 2 CT CSPINE [...] by: ALFREDO GODOY Date: 2022-02-07 00:34 Normal [facility] CT HEAD WO CONon 02-07-2022 CT HEAD [...] ALFREDO GODOY Date: 2022-02-06 23:57 Normal [facility] XR HIP LT 2 3V W PELVISon [...] ALFREDO GODOY Date: 2022-02-07 00:13 Normal [facility] SCREENING MAMMOGRAM W/RAMIRO, BILATERAL*on 10-16-2021 SCREENING MAMMOGRAM [...] IS VERY IMPORTANT TO YOUR HEALTH. CURRENT [employer] GUIDELINES RECOMMENDS ANNUAL MAMMOGRAPHY BEGINNING AT AGE 38. THIS FACILITY USUALLY USES A REMINDER SYSTEM TO ENSURE ALL POSITIONS RECEIVED REMINDER NOTIFICATIONS AT THE TIME BASED ON THE RECOMMENDATIONS OF THIS EXAM. Report reported and signed by Guerline Puri on 10/17/2021 1316 Normal [facility] CT CHEST WO CONon 09-23-2021 CT CHEST [...] GUERLINE ANDREWS Date: 2021-09-23 16:16 Normal [facility] CBC AUTO DIFFon 06-19-2021 BASO # 0.1 103/ul Normal 0.0-0.1 [facility] Comment on above: Performed By: #### D ATCBC ####[facility] [address] [place] [address]DrAkira Dumont Basophils/100 WBC (Bld) 0.3 % Normal 0.2-2.0 [facility] Comment on above: Performed By: #### D ATCBC ####[facility] [address] [place], [place] [address]DrAkira Dumont EO # 0.4 103/ul Normal 0.0-0.7 [facility] Comment on above: Performed By: #### D ATCBC ####[facility] [address] [place], [place] [address]DrAkira Dumont Eosinophils/100 WBC (Bld) 1.7 % Normal 0.9-7.0 [facility] Comment on above: Performed By: #### D ATCBC ####[facility] [address] [place], [place] [address]DrAkira Dumont Erythrocyte distribution width (RBC) [Ratio] 13.4 % Normal 11.0-15.0 [facility] Comment on above: Performed By: #### D ATCBC ####[facility] [address] [place], [place] [address]DrAkira Dumont Hematocrit (Bld) [Volume fraction] 38.4 % Normal 36.0-48.0 [facility] Comment on above: Performed By: #### D ATCBC ####[facility] [address] [place], [place] [address]Dr. Peace Dumont Hemoglobin (Bld) [Mass/Vol] 13.0 g/dL Normal 12.0-16.0 [facility] Comment on above: Performed By: #### D ATCBC ####[facility] [address] [place] [address]Dr. Peace Dumont IG # 0.03 10e3/ul Normal 0.00-0.03 [facility] Comment on above: Performed By: #### D ATCBC ####[facility] [address] [place], [place] [address]Dr. Peace Dumont IG % 0.1 % Normal 0.0-0.5 [facility] Comment on above: Performed By: #### D ATCBC ####[facility] [address] [place], [place] [address]Dr. Peace Dumont LYMPH # 15.3 103/ul Critically high 1.2-3.[address] [facility] Comment on above: Performed By: #### D ATCBC ####[facility] [address] [place], [place] [address]Dr. Peace Tim Lymphocytes/100 WBC (Bld) 75.8 % Critically high 20.5-60.0 [facility] Comment on above: Performed By: #### D ATCBC ####[facility] [address] [place], [place] [address]Dr. Peace Dumont MCH (RBC) [Entitic mass] 31.6 pg Normal 26.7-34.0 [facility] Comment on above: Performed By: #### D ATCBC ####[facility] [address] [place], [place] [address]Dr. Peace Dumont MCHC (RBC) [Mass/Vol] 33.9 g/dL Normal 29.9-35.2 [facility] Comment on above: Performed By: #### D ATCBC ####[facility] [address] [place], [place] [address]Dr. Peace Tim MCV (RBC) [Entitic vol] 93.4 fL Normal 81.0-99.0 [facility] Comment on above: Performed By: #### D ATCBC ####[facility] [address] [place] [id number]. Peace Dumont MONO # 1.3 103/ul Critically high 0.3-0.8 [facility] Comment on above: Performed By: #### D ATCBC ####[facility] [address] [place] [address]Dr. Peace Dumont Monocytes/100 WBC (Bld) 6.3 % Normal 1.7-12.0 [facility] Comment on above: Performed By: #### D ATCBC ####[facility] [address] [place] [address]Dr. Peace Dumont NEUT # 3.2 103/ul Normal 1.4-6.5 [facility] Comment on above: Performed By: #### D ATCBC ####[facility] [address] [place] [address]Dr. Peace Dumont Neutrophils/100 WBC (Bld) 15.8 % Critically low 43.0-75.0 [facility] Comment on above: Performed By: #### D ATCBC ####[facility] [address] [place] [id number]. Peace Dumont Platelet mean volume (Bld) [Entitic vol] 9.9 fL Normal 9.5-13.5 [facility] Comment on above: Performed By: #### D ATCBC ####[facility] [id number] [place] [id number]. Peace Dumont PLT 182 103/ul Normal 150-450 [facility] Comment on above: Performed By: #### D ATCBC ####[facility] [id number] [place] [id number]. Peace Dumont RBC 4.11 106/ul Critically low 4.20-5.40 [facility] Comment on above: Performed By: #### D ATCBC ####[facility] [id number] [place] [id number]. Peace Dumont WBC 20.3 103/ul Critically high 4.0-11.[address] [facility] Comment on above: Performed By: #### D ATCBC ####[facility] [id number] [place], [place] [address]NmDr. Peace Dumont ERNESTINE- BMP WITH LIPIDon 2021 Anion gap [Moles/Vol] 11.2 mmol/L Normal [facility] Comment on above: Performed By: #### D ATBMP #### [facility] [address] [address] [address] Peace Dumont Calcium [Mass/Vol] 8.7 mg/dL Normal 8.5-10.1 [facility] Comment on above: Performed By: #### D ATBMP #### [facility] [address] [address] [address] Peace Dumont Chloride [Moles/Vol] 103 mmol/L Normal 98-107 [facility] Comment on above: Performed By: #### D ATBMP #### [facility] [address] [address] [address] Peace Dumont Cholesterol [Mass/Vol] 208 mg/dL Critically high <=200 [facility] Comment on above: Performed By: #### D ATBMP #### [facility] [address] [address] [address] Peace Dumont Cholesterol in HDL [Mass/Vol] 56 mg/dL Normal 40-60 [facility] Comment on above: Performed By: #### D ATBMP #### [facility] [address] [address] [address] Peace Dumont Cholesterol in LDL [Mass/Vol] 136.8 mg/dL Normal [facility] Comment on above: Performed By: #### D ATBMP #### [facility] [address] [address] [address] Peace Dumont CO2 [Moles/Vol] 27.8 mmol/L Normal 22.0-30.[address] [facility] Comment on above: Performed By: #### D ATBMP #### [facility] [address] [address] [address] Peace Dumont Creatinine [Mass/Vol] 0.82 mg/dL Normal 0.52-1.04 [facility] Comment on above: Performed By: #### D ATBMP #### [facility] [address] [address] [address] Peace Dumont EGFR-AF ALBANIAN >60 Normal >=[address] [facility] Comment on above: Performed By: #### D ATBMP #### [facility] [address] [address] [address] Peace Dumont EGFR-NON AF ALBANIAN >60 Normal >=60 [facility] Comment on above: Performed By: #### D ATBMP #### [facility] [address] [address] [address] Peace Dumont Glucose [Mass/Vol] 90 mg/dL Normal 74-106 [facility] Comment on above: Performed By: #### D ATBMP #### [facility] [address] [address] [address] Peace Dumont HDL NORMAL > or = 60 mg/dl - LO W CARDIOVASCULAR RISK <40 mg/dl - HIGH CARDIOVASCULAR RISK Normal [facility] Comment on above: Performed By: #### D ATBMP #### [facility] [address] [address] [address] Peace Dumont LDL CALC NORMAL SEE BELOW Normal [facility] Comment on above: Result Comment: <100 mg/dl OPTIMAL 100 - 129 mg/dl NEAR OR ABOVE OPTIMAL 130 - 159 mg/dl BORDERLINE HIGH 160 - 189 mg/dl HIGH >190 mg/dl VERY HIGH Performed By: #### D ATBMP #### [facility] [address] [address] [address] Peace Dumont Potassium [Moles/Vol] 4.0 mmol/L Normal 3.4-5.0 [facility] Comment on above: Performed By: #### D ATBMP #### [facility] [address] [address] [address] Peace Dumont Sodium [Moles/Vol] 138 mmol/L Normal 137-145 [facility] Comment on above: Performed By: #### D ATBMP #### [facility] [address] [address] [address] Peace Dumont Triglyceride [Mass/Vol] 76 mg/dL Normal <=150 [facility] Comment on above: Performed By: #### D ATBMP #### [facility] [address] [address] [address] Peace Dumont Urea nitrogen [Mass/Vol] 14.0 mg/dL Normal 7.0-18.0 [facility] Comment on above: Performed By: #### D ATBMP #### [facility] [address] [address] [address] Peace Dumont Urea nitrogen/Creatinine [Mass ratio] 17.1 mg/mg Normal [facility] Comment on above: Performed By: #### D ATBMP #### [facility] [address] [address] [address] Peace Dumont VLDL CALC 15.2 mg/dL Normal [facility] Comment on above: Performed By: #### D ATBMP #### [facility] [address] [place] [address] LUNG CANCER SCREENINGon [...] GUERLINE ANDREWS Date: 2021-03-25 11:05 Normal [facility] Covid-19 PCR (CVDTB)on SARS-CoV-2 (COVID-19) RNA ENRIQUE+probe Ql (Unsp spec) Not detected Normal NOT DETECTED [facility] Comment on above: Result Comment: This test is not yet approved or cleared by the [place] FDA. When there are no FDA-approved or cleared tests available, and other criteria are met, FDA can make tests available under an emergency access mechanism called an Emergency Use Authorization (EUA). The EUA for this test is supported by the [place] of Health and Human Service's (HHS's) declaration [...] consistent with SARS-CoV-2. Performed By: #### [facility] ####[facility] [id number] [place], [place] [address]Jv. Peace Dumont PROGRESSon 08-24-2017 [facility] NOTES Normal [facility] PROGRESSon 01-25-2017 [facility] NOTES Normal [facility] Vital Signs Date Time Vital Sign Value Performing Clinician Facility 11-25-2023 10:46-0400 Body height 175.26 cm [facility] 11-25-2023 10:46-0400 Body mass index (BMI) [Ratio] 19.9 kg/m2 [facility] 11-25-2023 10:46-0400 Body weight 61.29 kg [facility] 11-25-2023 10:46-0400 Diastolic blood pressure 80 mm[Hg] [facility] 11-25-2023 10:46-0400 Heart rate 62 /min [facility] 11-25-2023 10:46-0400 Respiratory rate 12 /min [facility] 11-25-2023 10:46-0400 Systolic blood pressure 129 mm[Hg] [facility] 11-07-2023 10:23-0400 Body height 175.3 cm Fernando Hanna MD Work Phone: [facility] 11-07-2023 10:23-0400 Body mass index (BMI) [Ratio] 20.11 kg/m2 Fernando Hanna MD Work Phone: [facility] 11-07-2023 10:23-0400 Body temperature 97.11 [degF] Fernando Hanna MD Work Phone: [facility] 11-07-2023 10:23-0400 Body weight 61.8 kg Fernando Hanna MD Work Phone: [facility] 11-07-2023 10:23-0400 Diastolic blood pressure 75 mm[Hg] Fernando Hanna MD Work Phone: [facility] 11-07-2023 10:23-0400 Heart rate 64 /min Fernando Hanna MD Work Phone: [facility] 11-07-2023 10:23-0400 Respiratory rate 16 /min Fernando Hanna MD Work Phone: [facility] 11-07-2023 10:23-0400 SaO2% (BldA) [Mass fraction] 98 % Fernando Hanna MD Work Phone: [facility] 11-07-2023 10:23-0400 Systolic blood pressure 127 mm[Hg] Fernando Hanna MD Work Phone: [facility] 10-19-2023 09:42-0400 Body height 175.26 cm [facility] 10-19-2023 09:42-0400 Body mass index (BMI) [Ratio] 20.3 kg/m2 [facility] 10-19-2023 09:42-0400 Body weight 62.59 kg [facility] 09-05-2023 09:48-0400 Body height 175.26 cm [facility] 09-05-2023 09:48-0400 Body mass index (BMI) [Ratio] 20.4 kg/m2 [facility] 09-05-2023 09:48-0400 Body weight 62.82 kg [facility] 09-05-2023 09:48-0400 Diastolic blood pressure 86 mm[Hg] [facility] 09-05-2023 09:48-0400 Heart rate 60 /min [facility] 09-05-2023 09:48-0400 Respiratory rate 12 /min [facility] 09-05-2023 09:48-0400 Systolic blood pressure 139 mm[Hg] [facility] 06-20-2023 13:53-0400 Body height 175.26 cm [facility] 06-20-2023 13:53-0400 Body mass index (BMI) [Ratio] 20.2 kg/m2 [facility] 06-20-2023 13:53-0400 Body weight 62.14 kg [facility] 06-20-2023 13:53-0400 Diastolic blood pressure 74 mm[Hg] [facility] 06-20-2023 13:53-0400 Heart rate 60 /min [facility] 06-20-2023 13:53-0400 Respiratory rate 12 /min [facility] 06-20-2023 13:53-0400 Systolic blood pressure 131 mm[Hg] [facility] 05-09-2023 09:54-0500 Body height 175.3 cm Fernando Hanna MD Work Phone: [facility] 05-09-2023 09:54-0500 Body temperature 98.01 [degF] Fernando Hanna MD Work Phone: [facility] 05-09-2023 09:54-0500 Body weight 61.6 kg Fernando Hanna MD Work Phone: [facility] 05-09-2023 09:54-0500 Diastolic blood pressure 73 mm[Hg] Fernando Hanna MD Work Phone: [facility] 05-09-2023 09:54-0500 Heart rate 65 /min Fernando Hanna MD Work Phone: [facility] 05-09-2023 09:54-0500 Respiratory rate 16 /min Fernando Hanna MD Work Phone: [facility] 05-09-2023 09:54-0500 SaO2% (BldA) [Mass fraction] 99 % Fernando Hanna MD Work Phone: [facility] 05-09-2023 09:54-0500 Systolic blood pressure 140 mm[Hg] Fernando Hanna MD Work Phone: [facility] 04-20-2023 09:45-0500 Body height 175.26 cm Schuyler Ball Other [facility] 04-20-2023 09:45-0500 Body mass index (BMI) [Ratio] 20.02 kg/m2 Schuyler Ball Other [facility] [employer] Other 04-20-2023 09:45-0500 Body weight 61.51 kg Schuyler Ball Other [facility] [employer] Other 04-20-2023 09:45-0500 Body weight 61.5 kg [facility] 04-20-2023 09:45-0500 Diastolic blood pressure 77 mm[Hg] Schuyler Ball Other [facility] 04-20-2023 09:45-0500 Respiratory rate 12 /min Schuyler Ball Other [employer] Other 04-20-2023 09:45-0500 Systolic blood pressure 133 mm[Hg] Schuyler Ball Other [facility] 02-25-2023 10:30-0500 Body height 175.26 cm Schuyler Ball Other [employer] Other 02-25-2023 10:30-0500 Body mass index (BMI) [Ratio] 19.93 kg/m2 Schuyler Ball Other [employer] Other 02-25-2023 10:30-0500 Body weight 61.24 kg Schuyler Ball Other [employer] Other 02-25-2023 10:30-0500 Diastolic blood pressure 84 mm[Hg] Schuyler Ball Other [employer] Other 02-25-2023 10:30-0500 Respiratory rate 16 /min Schuyler Ball Other [employer] Other 02-25-2023 10:30-0500 SaO2% (BldA) [Mass fraction] 97 % Schuyler Ball Other [employer] Other 02-25-2023 10:30-0500 Systolic blood pressure 148 mm[Hg] Schuyler Ball Other [employer] Other 02-18-2023 08:45-0500 Body height 175.26 cm Schuyler Ball Other [employer] Other 02-18-2023 08:45-0500 Body mass index (BMI) [Ratio] 20.35 kg/m2 Schuyler Ball Other [employer] Other 02-18-2023 08:45-0500 Body weight 62.51 kg Schuyler Ball Other [employer] Other 02-18-2023 08:45-0500 Diastolic blood pressure 84 mm[Hg] Schuyler Ball Other [employer] Other 02-18-2023 08:45-0500 Respiratory rate 12 /min Schuyler Ball Other [employer] Other 02-18-2023 08:45-0500 Systolic blood pressure 151 mm[Hg] Schuyler Ball Other [employer] Other 01-12-2023 15:15-0400 Body height 175.26 cm Schuyler Ball Other [employer] Other 01-12-2023 15:15-0400 Body mass index (BMI) [Ratio] 20.49 kg/m2 Schuyler Ball Other [employer] Other 01-12-2023 15:15-0400 Body weight 62.96 kg Schuyler Ball Other [employer] Other 01-12-2023 15:15-0400 Diastolic blood pressure 81 mm[Hg] Schuyler Ball Other [employer] Other 01-12-2023 15:15-0400 Respiratory rate 12 /min Schuyler Ball Other [employer] Other 01-12-2023 15:15-0400 Systolic blood pressure 131 mm[Hg] Schuyler Ball Other [employer] Other 12-17-2022 13:45-0400 Body height 175.26 cm Schuyler Ball Other [employer] Other 12-17-2022 13:45-0400 Body mass index (BMI) [Ratio] 20.67 kg/m2 Schuyler Ball Other [employer] Other 12-17-2022 13:45-0400 Body weight 63.5 kg Schuyler Ball Other [employer] Other 12-17-2022 13:45-0400 Diastolic blood pressure 79 mm[Hg] Schuyler Ball Other [employer] Other 12-17-2022 13:45-0400 Respiratory rate 12 /min Schuyler Ball Other [employer] Other 12-17-2022 13:45-0400 Systolic blood pressure 149 mm[Hg] Schuyler Ball Other [employer] Other 12-04-2022 11:30-0400 Body height 175.26 cm Daija Wildermond Other [employer] Other 12-04-2022 11:30-0400 Body mass index (BMI) [Ratio] 20.38 kg/m2 Daija Payton Other [employer] Other 12-04-2022 11:30-0400 Body temperature 98.1 [degF] Daija Payton Other [employer] Other 12-04-2022 11:30-0400 Body weight 62.6 kg Daija Payton Other [employer] Other 12-04-2022 11:30-0400 Diastolic blood pressure 69 mm[Hg] Daija Payton Other [employer] Other 12-04-2022 11:30-0400 Respiratory rate 18 /min Daija Payton Other [employer] Other 12-04-2022 11:30-0400 SaO2% (BldA) [Mass fraction] 99 % Daija Cain Other [employer] Other 12-04-2022 11:30-0400 Systolic blood pressure 141 mm[Hg] Daija Cain Other [employer] Other 08-19-2022 08:55-0400 Diastolic blood pressure 44 mm[Hg] DO Schuyler Ball Work Phone: [facility] 08-19-2022 08:55-0400 Heart rate 59 /min DO Schuyler Ball Work Phone: [facility] 08-19-2022 08:55-0400 Respiratory rate 16 /min DO Schuyler Ball Work Phone: [facility] 08-19-2022 08:55-0400 SaO2% (BldA) [Mass fraction] 100 % DO Schuyler Ball Work Phone: [facility] 08-19-2022 08:55-0400 Systolic blood pressure 89 mm[Hg] DO Schuyler Ball Work Phone: [facility] 08-19-2022 07:03-0400 Body height 175.26 cm DO Schuyler Ball Work Phone: [facility] 08-19-2022 07:03-0400 Body temperature 97.9 [degF] DO Schuyler Ball Work Phone: [facility] 08-19-2022 07:03-0400 Body weight 61.23 kg DO Schuyler Ball Work Phone: [facility] 06-23-2022 10:00-0400 Body height 167.64 cm Schuyler [employer] Other [facility] [employer] Other 06-23-2022 10:00-0400 Body mass index (BMI) [Ratio] 21.69 kg/m2 Schuyler [employer] Other [employer] Other 06-23-2022 10:00-0400 Body weight 60.96 kg Schuyler Ball Other [employer] Other 06-23-2022 10:00-0400 Diastolic blood pressure 70 mm[Hg] Schuyler Ball Other [employer] Other 06-23-2022 10:00-0400 Respiratory rate 16 /min Schuyler Ball Other [employer] Other 06-23-2022 10:00-0400 SaO2% (BldA) [Mass fraction] 99 % Schuyler Ball Other [employer] Other 06-23-2022 10:00-0400 Systolic blood pressure 116 mm[Hg] Schuyler Ball Other [employer] Other 05-26-2022 13:00-0500 Body height 175.26 cm Jake Mireles Other [employer] Other 05-26-2022 13:00-0500 Body mass index (BMI) [Ratio] 19.79 kg/m2 Jake Mireles Other [employer] Other 05-26-2022 13:00-0500 Body weight 60.78 kg Jake Mireles Other [employer] Other 05-26-2022 13:00-0500 Respiratory rate 16 /min Jake Mireles Other [employer] Other 05-10-2022 09:04-0500 Body height 175.3 cm Citlaly Cole APRN.[facility] Work Phone: [facility] 05-10-2022 09:04-0500 Body temperature 98.71 [degF] Citlaly Cole LINTER TENDER.RESIDENT SERVICES MANAGER Work Phone: [facility] 05-10-2022 09:04-0500 Body weight 61.69 kg Citlaly Cole LINTER TENDER.RESIDENT SERVICES MANAGER Work Phone: [facility] 05-10-2022 09:04-0500 Diastolic blood pressure 78 mm[Hg] Citlaly Cole LINTER TENDER.RESIDENT SERVICES MANAGER Work Phone: [facility] 05-10-2022 09:04-0500 Heart rate 67 /min Citlaly Cole LINTER TENDER.RESIDENT SERVICES MANAGER Work Phone: [facility] 05-10-2022 09:04-0500 Respiratory rate 16 /min Citlaly Cole APRN.RESIDENT SERVICES MANAGER Work Phone: [facility] 05-10-2022 09:04-0500 SaO2% (BldA) [Mass fraction] 100 % Citlaly Cole APRN.RESIDENT SERVICES MANAGER Work Phone: [facility] 05-10-2022 09:04-0500 Systolic blood pressure 132 mm[Hg] Citlaly Cole LINTER TENDER.RESIDENT SERVICES MANAGER Work Phone: [facility] 12-27-2021 11:00-0400 Body height 175.26 cm Amy Hernandez Other [employer] Other 12-27-2021 11:00-0400 Body mass index (BMI) [Ratio] 20.29 kg/m2 Amy Hernandez Other [employer] Other 12-27-2021 11:00-0400 Body temperature 97 [degF] Amy Hernandez Other [employer] Other 12-27-2021 11:00-0400 Body weight 62.32 kg Amy Hernandez Other [employer] Other 12-27-2021 11:00-0400 Diastolic blood pressure 87 mm[Hg] Amy Hernandez Other [employer] Other 12-27-2021 11:00-0400 Respiratory rate 18 /min Amy Hernandez Other [employer] Other 12-27-2021 11:00-0400 SaO2% (BldA) [Mass fraction] 100 % Amy Hernandez Other [employer] Other 12-27-2021 11:00-0400 Systolic blood pressure 135 mm[Hg] Amy Hernandez Other [employer] Other 11-09-2021 09:05-0400 Body height 175.3 cm Fernando Hanna MD Work Phone: [facility] 11-09-2021 09:05-0400 Body temperature 97.39 [degF] Fernando Hanna MD Work Phone: [facility] 11-09-2021 09:05-0400 Body weight 63.32 kg Fernando Hanna MD Work Phone: [facility] 11-09-2021 09:05-0400 Diastolic blood pressure 68 mm[Hg] Fernando Hanna MD Work Phone: [facility] 11-09-2021 09:05-0400 Heart rate 67 /min Fernando Hanna MD Work Phone: [facility] 11-09-2021 09:05-0400 Respiratory rate 16 /min Fernando Hanna MD Work Phone: [facility] 11-09-2021 09:05-0400 SaO2% (BldA) [Mass fraction] 98 % Fernando Hanna MD Work Phone: [facility] 11-09-2021 09:05-0400 Systolic blood pressure 136 mm[Hg] Fernando Hanna MD Work Phone: [facility] 04-13-2021 16:30-0500 Body height 175.26 cm Kedar Paredes Other [employer] Other 04-13-2021 16:30-0500 Body mass index (BMI) [Ratio] 20.38 kg/m2 Kedar Paredes Other [employer] Other 04-13-2021 16:30-0500 Body weight 62.6 kg Kedar Paredes Other [employer] Other 09-26-2019 13:23-0400 BMI (Body Mass Index) 20.53 kg/m2 [employer] 09-26-2019 13:23-0400 Body Temperature 96.91 [degF] [employer] 09-26-2019 13:23-0400 Body weight 63.05 kg [employer] 09-26-2019 13:23-0400 BP Diastolic 84 mm[Hg] [employer] 09-26-2019 13:23-0400 BP Systolic 140 mm[Hg] [employer] 09-26-2019 13:23-0400 Pulse (Heart Rate) 61 /min [employer] 02-28-2019 10:40-0500 BP Diastolic 79 mm[Hg] [employer] 02-28-2019 10:40-0500 BP Systolic 118 mm[Hg] [employer] 02-28-2019 10:40-0500 Height 175.3 cm [employer] 02-28-2019 10:40-0500 Pulse (Heart Rate) 67 /min [employer] Encounters Encounter Date Encounter Type Care Provider Facility Start: 02-09-2024 End: 02-09-2024 Patrice Barrett MD Work Phone: [facility] Start: 02-09-2024 End: 02-09-2024 Bamboo flowsheet Gunner Barrett MD Work Phone: [facility] Start: 02-09-2024 End: 02-09-2024 Office outpatient visit 15 minutes Gunner Barrett MD Work Phone: [facility] Comment on above: Seborrheic keratosis (Primary Dx); Lentigines Start: 02-09-2024 End: 02-09-2024 ambulatory GUNNER BARRETT Not Available Start: 01-06-2024 End: 01-06-2024 ambulatory [facility] Work Phone: Start: 01-06-2024 End: 01-06-2024 Patient encounter procedure [facility] Work Phone: Start: 11-25-2023 End: 11-25-2023 ambulatory [facility] Work Phone: Start: 11-25-2023 End: 11-25-2023 Patient encounter procedure [facility] Work Phone: Start: 11-08-2023 End: 11-08-2023 ambulatory KYLEE LOMASION Not Available Start: 11-07-2023 End: 11-07-2023 Office outpatient visit 15 minutes Fernando Hanna MD Work Phone: Hematology/Oncology Comment on above: CLL (chronic lymphoc ytic leukemia) (HCC) (Primary Dx) Start: 11-07-2023 End: 11-07-2023 ambulatory SCHUYLER BARLOW Facility:[facility] Start: 11-07-2023 Non-patient / Non-visit [facility] Work Phone: Start: 11-02-2023 End: 11-02-2023 ambulatory MICHOACANO MENDES Not Available Start: 10-26-2023 End: 10-26-2023 ambulatory KYLEE Marie DIDION Not Available Start: 10-19-2023 End: 10-19-2023 ambulatory [facility] Work Phone: Start: 10-19-2023 End: 10-19-2023 Patient encounter procedure [facility] Work Phone: Start: 09-26-2023 End: 09-26-2023 ambulatory KYLEE C DIDION Not Available Start: 2023 End: 2023 ambulatory MICHOACANO M MAG-NOSSEK Not Available Start: 09-05-2023 End: 09-05-2023 ambulatory JOJO A VISCI Not Available Start: 09-05-2023 End: 09-05-2023 ambulatory [facility] Work Phone: Start: 09-05-2023 End: 09-05-2023 Patient encounter procedure [facility] Work Phone: Start: 08-22-2023 End: 08-22-2023 ambulatory KYLEE C DIDION Not Available Start: 08-02-2023 End: 08-02-2023 ambulatory MICHOACANO M MAG-NOSSEK Not Available Start: 07-28-2023 End: 07-28-2023 ambulatory KYLEE C DIDION Not Available Start: 07-15-2023 End: 07-15-2023 ambulatory JOJO A VISCI Not Available Start: 06-30-2023 End: 06-30-2023 ambulatory KYLEE C DIDION Not Available Start: 06-20-2023 End: 06-20-2023 ambulatory [facility] Work Phone: Start: 06-20-2023 End: 06-20-2023 Patient encounter procedure [facility] Work Phone: Start: 06-20-2023 End: 06-20-2023 ambulatory MICHOACANO M MAG-NOSSEK Not Available Start: 06-17-2023 Non-patient / Non-visit [facility] Work Phone: Start: 06-13-2023 End: 06-13-2023 ambulatory KYLEE C DIDION Not Available Start: 05-25-2023 End: 05-25-2023 ambulatory KYLEE C DIDION Not Available Start: 05-23-2023 End: 05-23-2023 ambulatory MICHOACANO MENDES Not Available Start: 05-16-2023 End: 05-16-2023 ambulatory KYLEE C DIDION Not Available Start: 05-09-2023 End: 05-09-2023 Office outpatient visit 15 minutes Fernando Hanna MD Work Phone: Hematology/Oncology Comment on above: Chronic lymphocytic leukemia (HCC) (Primary Dx) Start: 05-09-2023 End: 05-09-2023 ambulatory SCHUYLER BARLOW Facility:[facility] Start: 05-09-2023 Non-patient / Non-visit [facility] [employer] Work Phone: Start: 05-02-2023 Bamboo flowsheet Kylee Pierson n DIRECTOR [employer] Work Phone: [facility] Start: 05-02-2023 Bamboo flowsheet Kylee Pierson n DIRECTOR [employer] Work Phone: [facility] Start: 05-02-2023 End: 05-02-2023 ambulatory KYLEE C DIDION Not Available Start: 04-29-2023 Chart abstracting Kylee Martinez on DIRECTOR [employer] Work Phone: [facility] Start: 04-26-2023 End: 04-26-2023 ambulatory Schuyler Barlow Other [employer] Other Start: 04-26-2023 Telephone encounter [facility] Start: 04-25-2023 End: 04-25-2023 ambulatory KYLEE C DIDION Not Available Start: 04-24-2023 Chart abstracting Kylee Lomasi on DIRECTOR AGENCY & STRATEGIC PARTNERSHIPS-S Work Phone: [facility] Start: 04-20-2023 End: 04-20-2023 ambulatory Schuyler Barlow Other [facility] [employer] Other Start: 04-20-2023 Office outpatient visit 15 minutes Schuyler Barlow [facility] Start: 04-20-2023 End: 04-20-2023 Patient encounter procedure [facility] Start: 04-18-2023 End: 04-18-2023 ambulatory KYLEE C DIDION Not Available Start: 04-11-2023 End: 04-11-2023 ambulatory KYLEE C DIDION Not Available Start: 04-04-2023 End: 04-04-2023 ambulatory KYLEE C DIDION Not Available Start: 03-29-2023 End: 03-29-2023 ambulatory Schuyler Barlow Other [employer] Other Start: 03-29-2023 Telephone encounter Schuyler Barlow RENAE [employer] Start: 03-28-2023 End: 03-28-2023 ambulatory KYLEE C DIDION Not Available Start: 03-15-2023 End: 03-15-2023 ambulatory Schuyler Barlow Other [employer] Other Start: 03-15-2023 Telephone encounter Schuyler MACDONALD [facility] Start: 03-04-2023 End: 03-04-2023 ambulatory Schuyler Barlow Other [employer] Other Start: 03-04-2023 Telephone encounter Schuyler MACDONALD [facility] Start: 03-03-2023 End: 03-03-2023 ambulatory Daija Cain Other [employer] Other Start: 03-03-2023 Telephone encounter Daija MACDONALD [facility] Start: 02-28-2023 End: 02-28-2023 ambulatory Schuyler Barlow Other [employer] Other Start: 02-28-2023 Telephone encounter Schuyler MACDONALD [facility] Start: 02-25-2023 End: 02-25-2023 ambulatory Schuyler Barlow Other [employer] Other Start: 02-25-2023 Office outpatient visit 15 minutes Schuyler Barlow [facility] Start: 02-18-2023 End: 02-18-2023 ambulatory Schuyler Barlow Other [employer] Other Start: 02-18-2023 Office outpatient visit 15 minutes Schuyler Barlow [facility] Start: 01-31-2023 End: 01-31-2023 ambulatory Schuyler Barlow Other [employer] Other Start: 01-31-2023 Telephone encounter Schuyler Barlow [facility] Start: 01-21-2023 End: 01-21-2023 ambulatory Schuyler Barlow Other [employer] Other Start: 01-21-2023 Telephone encounter Schuyler Barlow [facility] Start: 01-12-2023 End: 01-12-2023 ambulatory Schuyler Barlow Other [employer] Other Start: 01-12-2023 Office outpatient visit 15 minutes Schuyler Ball [facility] Start: 12-21-2022 End: 12-21-2022 ambulatory Schuyler Barlow Other [employer] Other Start: 12-21-2022 Telephone encounter Schuyler Barlow [facility] Start: 12-17-2022 End: 12-17-2022 ambulatory Schuyler Barlow Other [employer] Other Start: 12-17-2022 Office outpatient visit 15 minutes Schuyler Barlow [facility] Start: 12-04-2022 Office outpatient visit 15 minutes Daija Cain [facility] Start: 12-04-2022 End: 12-04-2022 ambulatory DO Schuyler Barlow Work Phone: [employer] Other Start: 12-04-2022 End: 12-04-2022 Patient encounter procedure DO Schuyler Barlow Work Phone: [facility] Work Phone: Start: 11-08-2022 End: 11-08-2022 ambulatory SCHUYLER BARLOW Facility:[facility] Start: 10-20-2022 End: 10-20-2022 ambulatory Schuyler Barlow Other [employer] Other Start: 10-20-2022 Telephone encounter Schuyler MACDONALD [facility] Start: 08-19-2022 Telephone encounter Jake MACDONALD [facility] Start: 08-19-2022 End: 08-19-2022 Admission to same day surgery center DO Schuyler Barlow Work Phone: [facility] Work Phone: Start: 08-19-2022 End: 08-19-2022 ambulatory DO Schuyler Barlow Work Phone: [facility] Work Phone: Start: 06-23-2022 End: 06-23-2022 ambulatory Schuyler Barlow Other [employer] Other Start: 06-23-2022 Patient encounter procedure Schuyler Barlow [facility] Start: 05-27-2022 End: 05-27-2022 ambulatory Schuyler Barlow Other [employer] Other Start: 05-27-2022 Telephone encounter Schuyler MACDONALD [facility] Start: 05-26-2022 End: 05-26-2022 ambulatory Jake Mireles Other [employer] Other Start: 05-26-2022 Patient encounter procedure Jake Mireles [facility] Start: 05-10-2022 End: 05-10-2022 ambulatory Citlaly Cole LINTER TENDER.RESIDENT SERVICES MANAGER Work Phone: Hematology/Oncology Comment on above: Chronic lymphocytic leukemia (HCC) (Primary Dx) Start: 05-10-2022 End: 05-10-2022 Patient encounter procedure Citlaly Cole LINTER TENDER.RESIDENT SERVICES MANAGER Work Phone: [place] Start: 05-07-2022 Telephone encounter Citlaly galeano LINTER TENDER.RESIDENT SERVICES MANAGER Work Phone: Hematology/Oncology Comment on above: Lab Orders Start: 02-07-2022 End: 02-07-[address] DORITA GRANT Facility:[facility] Start: 12-27-2021 End: 12-27-2021 ambulatory Amy Hernandez Other [employer] Other Start: 12-27-2021 Office outpatient visit 15 minutes Amy Hernandez [facility] Start: 11-09-2021 End: 11-09-2021 ambulatory Fernando Hanna MD Work Phone: Hematology/Oncology Comment on above: Chronic lymphocytic leukemia (HCC) (Primary Dx) Start: 11-09-2021 End: 11-09-2021 Patient encounter procedure Fernando Hanna MD Work Phone: [facility] Start: 09-23-2021 End: 09-24-[address] SCHUYLER BARLOW Facility:[facility] Start: 08-12-2021 End: 09-03-[address] [facility]UYLER BARLOW Facility:[facility] Start: 06-19-2021 End: 06-20-[address] KELLE ROSALES Facility:[facility] Start: 06-17-2021 Adult health examination Schuyler Barlow Other [employer] Other Start: 04-30-2021 End: 04-30-2021 ambulatory RIVERA SAINI Facility:[facility] Start: 04-13-2021 End: 04-13-2021 ambulatory Kedar Paredes Other [employer] Other Start: 04-13-2021 Office outpatient visit 25 minutes Kedar Paredes [facility] Start: 03-26-2021 End: 03-26-2021 ambulatory RIVERA SAINI Facility:[facility] Start: 03-25-2021 End: 03-26-[address] SCHUYLER BARLOW Facility:[facility] Start: 03-17-2021 End: 03-17-[address] SCHUYLER BARLOW Facility:[facility] Start: 03-06-2021 End: 06-15-[address] KEDAR MARY Facility:[facility] Start: 02-23-2021 End: 02-23-[address] SCHUYLER BARLOW Facility:[facility] Start: 09-26-2019 End: 09-26-2019 Patient encounter procedure Rodolfo Ross Work Phone: [facility] Comment on above: 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); [facility] Start: 02-28-2019 End: 02-28-2019 Patient encounter procedure Rodolfo Ross Work Phone: [facility] Comment on above: 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); [facility] Start: 08-24-2017 Ambulatory RODOLFO ROSS [facility] Start: 01-25-2017 Ambulatory RODOLFO [facility] Procedures Date Procedure Procedure Detail Performing Clinician Start: 12-04-2022 X-ray of right foot DO Schuyler Barlow Work Phone: Start: 08-19-2022 Colonoscopy DO Ericka Barlow Work Phone: Start: 10-16-2021 Mammography Kylee Michelle on DIRECTOR AGENC[employer]NER[employer]-S Work Phone: Start: 10-29-2020 Adult depression scr eening assessment Fernando Hanna MD Work Phone: Start: 11-18-2015 Pre-surgery evaluation Schuyler Barlow Other Start: 11-18-2015 Preoperative cardiov ascular examination Schuyler Barlow Other Depression screening Ericka Barlow Other Plan of Treatment Date Care Activity Detail Author Start: 11-06-2026 Diabetes Screening Diabetes Screenin g [facility] Start: 05-09-2026 Diabetes Screening Diabetes Screenin g [facility] Start: 05-10-2025 DIABETES SCREEN DIABETES SCREEN [facility] Start: 02-07-2025 End: 02-07-2025 Patient encounter procedure 02/07/2025 10:35 AM EST Office Visit [facility] [address] [place] [address] Gunner Barrett MD [address] [place] [address] [facility] Start: 11-09-2024 DIABETES SCREEN DIABETES SCREEN [facility] Start: 07-25-2024 End: 07-25-2024 Patient encounter procedure 07/25/2024 10:45 AM EDT Office Visit [facility] [address] [place] [address] Jojo Ramesh, DO [address] [place] [address] [facility] Start: 05-14-2024 End: 05-14-2024 Follow-up encounter 05/14/2024 10:45 AM EST Visit (SP) Office Hematology/Oncology [address] [place] [address] Fernando Hanna MD [address] [place] [address] 6 month follow up Hematology/Oncology Comment on above: 6 month follow up Start: 05-14-2024 End: 05-14-2024 Patient encounter procedure 05/14/2024 10:30 AM EST Office Visit [facility] [address] [place] [address] 6 month follow up [facility] Comment on above: 6 month follow up Start: 02-09-2024 End: 02-09-2024 Patient encounter procedure [facility] Comment on above: Arrived Start: 11-20-2023 Influenza vaccination Influenza Vacc ine (#1) [facility] Start: 07-11-2023 End: 07-11-2023 Patient encounter procedure [facility] Start: 06-09-2023 End: 06-09-2023 Patient encounter procedure 06/09/2023 10:30 AM EDT Office Visit [facility] [address] [place] [address] Jojo Ramesh, [address] [place] [address] [facility] Start: 05-09-2023 End: 05-09-2023 Social Work 05/09/2023 3:00 PM EST Social Work [facility] [address] [place] [address] Kylee Smith DIRECTOR AGENC[employer]NERSH[employer] [address] [place] [address] [facility] Start: 05-02-2023 End: 05-02-2023 Social Work [facility] Comment on above: Arrived Start: 04-25-2023 End: 04-25-2023 Social Work 04/25/2023 12:00 PM EST Social Work [facility] [address] [place] [address] Kylee Smith DIRECTOR [employer] [address] [place] [address] [facility] Start: 03-21-2023 Advance Directive Discussion Advance Directive Discussion [facility] Start: 03-21-2023 [facility] Start: 02-16-2023 Covid-19 Vaccine ( season) Covid-19 Vaccine ( season) [facility] Start: 10-16-2022 Screening for malign ant neoplasm of breast [facility] Start: 08-19-2022 [facility] Start: 03-21-2022 ADVANCE DIRECTIVE DISCUSSION ADVANCE DIRECTIVE DISCUSSION [facility] Start: 03-21-2022 DEPRESSION ASSESSMENT DEPRESSION ASS ESSMENT [facility] Start: 11-19-2021 Influenza vaccination INFLUENZA (#1) [facility] Start: 10-29-2021 Adult depression screening assessment DEPRESSION SCREENING [facility] Start: 04-04-2021 COVID-19 VACCINE (4 - Booster for Pfizer series) COVID-19 VACCINE (4 - Booster for Pfizer series) [facility] Start: 03-21-2021 ADVANCE DIRECTIVE DISCUSSION ADVANCE DIRECTIVE DISCUSSION [facility] Start: 11-20-2019 Influenza vaccination INFLUENZA VACC INE (#1) [facility] Start: 11-19-2018 Influenza vaccination INFLUENZA VACC INE (#1) [facility] Start: 05-06-2018 Pneumococcal Vaccine : 65+ Years (2 - PCV) Pneumococcal Vaccine: 65+ Years (2 - PCV) [facility] Start: 05-06-2018 Pneumococcal Vaccine : 65+ Years (2 of 2 - PCV) Pneumococcal Vaccine: 65+ Years (2 of 2 - PCV) [facility] Start: 05-06-2018 PNEUMOCOCCAL: 65+ (2 - PCV) PNEUMOCOCCAL: 65+ (2 - PCV) [facility] Start: 2013 BONE DENSITY BONE DENSITY [facility] Start: 2013 Pneumococcal vaccination PNEUMOCOCCAL VACCINE SERIES (1 of 2 - PCV13) [facility] Start: 2013 Screening for osteoporosis Bone Density Screening [facility] Start: 03-22-2013 SHINGRIX VACCINE (1 of 2) SHINGRIX VACCINE (1 of 2) [facility] Start: 2008 RSV Vaccine (1 - 1-d ose 60+ series) RSV Vaccine (1 - 1-dose 60+ series) [facility] Start: 1998 Colonoscopy [facility] Start: 1998 Zoster vaccine hzv l nelida for subcutaneous use ZOSTER (SHINGLES) VACCINE (1 of 2) [facility] Start: 1993 COLOGUARD (FIT-DNA) COLOGUARD (FIT-D NA) [facility] Start: 1993 Colonoscopy COLONOSCOPY [facility] Start: 1993 COLORECTAL CANCER SCREENING COLORECTAL CANCER SCREENING [facility] Start: [address] COLONOGRAPHY [facility] Start: 1993 FECAL OCCULT BLOOD FECAL OCCULT BLOO D [facility] Start: 1993 Lipid panel Lipid Screening [facility] Start: 1993 LIPID SCREEN LIPID SCREEN [facility] Start: 1993 Screening for malign ant neoplasm of colon [facility] Start: 1993 [facility] Start: 1988 Fasting lipid profile LIPID SCREENIN G [facility] Start: 1988 Mammography MAMMOGRAM [facility] Start: 1988 Screening mammography MAMMOGRA M SCREENING DISCUSSION [facility] Start: 1969 Screening for malign ant neoplasm of cervix [facility] Start: 09-22-1967 Third diphtheria, tetanus and acellular pertussis (DTaP) vaccination TDAP (ADULT) [facility] Start: 09-22-1967 Urine microalbumin profile [facility] Start: 1966 Anxiety Screening Anxiety Screening [facility] Start: 1966 Depression Screening Depression Scre ening [facility] Start: 1966 HEPATITIS C SCREENING HEPATITIS C [facility] Start: 1966 Hepatitis C screening Hepatitis C [facility] Start: 1966 Tetanus vaccination [facility] Start: 1948 Hepatitis C antibody , confirmatory test HEPATITIS C VIRUS SCREENING [facility] Start: 1948 Screening for malign ant neoplasm of colon [facility] Start: 1948 Screening for osteoporosis DEXA SCAN DISCUSSION [facility] End: 05-10-2023 CBC W Auto Differential panel - Blood CBC + DIFF Lab Routine Chronic lymphocytic leukemia (HCC) Every 3 months for 4 Occurrences starting 05/10/2022 until 05/10/2023, 1 completed [facility] Work Phone: Comment on above: Every 3 months for 4 Occurrences starting 05/10/2022 until 05/10/2023, 1 completed CBC W Auto Different ial panel - Blood CBC + DIFF Lab Routine Chronic lymphocytic leukemia (HCC) 05/10/2022 9:01 AM EST [facility] Work Phone: End: 05-08-2024 CBC W Auto Differential panel - Blood CBC + DIFF Lab Routine Chronic lymphocytic leukemia (HCC) Every 6 months for 3 Occurrences starting 05/09/2023 until 05/08/2024 [facility] Work Phone: Comment on above: Every 6 months for 3 Occurrences starting 05/09/2023 until 05/08/2024 End: 11-06-2024 CBC W Auto Differential panel - Blood COMPLETE BLOOD COUNT AND DIFFERENTIAL Lab Routine CLL (chronic lymphocytic leukemia) ([facility]) Every 6 months for 3 Occurrences starting 11/07/2023 until 11/06/2024 [facility] Comment on above: Every 6 months for 3 Occurrences starting 11/07/2023 until 11/06/2024 End: 05-10-2023 Comprehensive metabolic 2000 panel - Serum or Plasma COMP METABOLIC PANEL Lab Routine Chronic lymphocytic leukemia (HCC) Every 3 months for 4 Occurrences starting 05/10/2022 until 05/10/2023, 1 completed [facility] Work Phone: Comment on above: Every 3 months for 4 Occurrences starting 05/10/2022 until 05/10/2023, 1 completed End: 05-08-2024 Comprehensive metabolic 2000 panel - Serum or Plasma COMP METABOLIC PANEL Lab Routine Chronic lymphocytic leukemia (HCC) Every 6 months for 3 Occurrences starting 05/09/2023 until 05/08/2024 [facility] Work Phone: Comment on above: Every 6 months for 3 Occurrences starting 05/09/2023 until 05/08/2024 End: 11-06-2024 Comprehensive metabolic 2000 panel - Serum or Plasma COMPREHENSIVE METABOLIC PANEL Lab Routine CLL (chronic lymphocytic leukemia) (HCC) Every 6 months for 3 Occurrences starting 11/07/2023 until 11/06/2024 [facility] Comment on above: Every 6 months for 3 Occurrences starting 11/07/2023 until 11/06/2024 End: 05-10-2023 Lactate dehydrogenase [Enzymatic activity/volume] in Serum or Plasma LD LACTATE DEHYDRO Lab Routine Chronic lymphocytic leukemia (HCC) Every 3 months for 4 Occurrences starting 05/10/2022 until 05/10/2023, 1 completed [facility] Work Phone: Comment on above: Every 3 months for 4 Occurrences starting 05/10/2022 until 05/10/2023, 1 completed End: 05-08-2024 Lactate dehydrogenase [Enzymatic activity/volume] in Serum or Plasma LD LACTATE DEHYDRO Lab Routine Chronic lymphocytic leukemia (HCC) Every 6 months for 3 Occurrences starting 05/09/2023 until 05/08/2024 [facility] Work Phone: Comment on above: Every 6 months for 3 Occurrences starting 05/09/2023 until 05/08/2024 End: 11-06-2024 Lactate dehydrogenase [Enzymatic activity/volume] in Serum or Plasma LACTATE DEHYDROGENASE Lab Routine CLL (chronic lymphocytic leukemia) (HCC) Every 6 months for 3 Occurrences starting 11/07/2023 until 11/06/2024 [facility] Comment on above: Every 6 months for 3 Occurrences starting 11/07/2023 until 11/06/2024 Patient Education Colon polyps H emorrhoids (DC) Diverticulosis (DC) [facility] Work Phone: End: 05-10-2023 Urate [Mass/volume] in Serum or Plasma URIC ACID BLOOD Lab Routine Chronic lymphocytic leukemia (HCC) Every 3 months for 4 Occurrences starting 05/10/2022 until 05/10/2023, 1 completed [facility] Work Phone: Comment on above: Every 3 months for 4 Occurrences starting 05/10/2022 until 05/10/2023, 1 completed End: 11-06-2024 Urate [Mass/volume] in Serum or Plasma URIC ACID Lab Routine CLL (chronic lymphocytic leukemia) (HCC) Every 6 months for 3 Occurrences starting 11/07/2023 until 11/06/2024 [facility] Work Phone: Comment on above: Every 6 months for 3 Occurrences starting 11/07/2023 until 11/06/2024 [facility] Immunizations Immunization Date Immunization Notes Care Provider [facility] 01-02-2024 influenza virus vaccine, unspecified formulation Gunner Barrett MD Work Phone: [facility] 01-05-2023 influenza virus vaccine, unspecified formulation Fernando Hanna MD Work Phone: [facility] 12-14-2021 influenza, high dose seasonal, preservative-free Schuyler Barlow Other [employer] [facility] [employer] Other 12-14-2021 influenza virus vaccine, split virus (incl. purified surface antigen) Schuyler Barlow Other [employer] [facility] [employer] Other 12-14-2021 influenza virus vaccine, unspecified formulation [facility] 11-27-2021 COVID-19 Pfizer (bivalent) Schuyler Barlow Other [facility] 01-10-2021 COVID-19 vaccine, ag e 12+ yr (PFIZER-Q.branch - PURPLE TOP) Fernando Hanna MD Work Phone: [facility] 12-17-2020 influenza virus vaccine, split virus (incl. purified surface antigen) Schuyler Barlow Other [employer] Other 12-17-2020 influenza virus vaccine, unspecified formulation [facility] 12-17-2020 Seasonal trivalent influenza vaccine, adjuvanted, preservative free Fernando Hanna MD Work Phone: [facility] 05-14-2020 COVID-19 Vaccine Pfi zer - Documentation Purposes Only Schuyler Barlow Other [facility] 04-23-2020 COVID-19 vaccine, ag e 12+ yr ([employer]-Q.branch - PURPLE TOP) Fernando Hanna MD Work Phone: [facility] 12-06-2019 influenza virus vaccine, split virus (incl. purified surface antigen) Schuyler Barlow Other [employer] Other 12-06-2019 influenza virus vaccine, unspecified formulation [facility] 01-10-2019 influenza, high dose seasonal, preservative-free Fernando Hanna MD Work Phone: [facility] 01-10-2019 influenza virus vaccine, unspecified formulation [facility] 02-01-2018 influenza, seasonal, injectable, preservative free Fernando Hanna MD Work Phone: [facility] 02-01-2018 influenza virus vaccine, unspecified formulation [facility] 01-09-2018 influenza virus vaccine, split virus (incl. purified surface antigen) Schuyler Barlow Other [employer] Other 01-09-2018 influenza virus vaccine, unspecified formulation [facility] 01-09-2018 Seasonal trivalent influenza vaccine, adjuvanted, preservative free Fernando Hanna MD Work Phone: [facility] 05-06-2017 pneumococcal polysaccharide vaccine, 23 valent Fernando Hanna MD Work Phone: [facility] 01-06-2017 influenza virus vaccine, split virus (incl. purified surface antigen) Schuyler Barlow Other [facility] [employer] Other 01-06-2017 influenza virus vaccine, unspecified formulation [facility] 01-06-2017 influenza, high dose seasonal, preservative-free Fernando Hanna MD Work Phone: [facility] 12-30-2015 influenza virus vaccine, split virus (incl. purified surface antigen) Schuyler Barlow Other [facility] [employer] Other 12-30-2015 influenza virus vaccine, unspecified formulation [facility] 12-30-2015 influenza, high dose seasonal, preservative-free Fernando Hanna MD Work Phone: [facility] 01-02-2015 pneumococcal conjuga te vaccine, 13 valent Schuyler Barlow Other [facility] 01-02-2015 pneumococcal Conjuga te, unspecified formulation; Translations: [Need for prophylactic vaccination against Streptococcus pneumoniae (pneumococcus)] Schuyler Barlow Other [facility] [employer] Other 01-25-2013 zoster vaccine, live Fernando russell MD Work Phone: [facility] Payers Date Payer Category Payer Medicaid [employer] MEDICARE A DVANTAGE [id number] 2017 Unknown PRE PAID ELECTIV E SELF PAY PRE PAID ELECTIVE SELF PAY [id number] 2017-Present [id number] 2017 Unknown PRE PAID ELECTIV E SELF PAY PRE PAID ELECTIVE SELF PAY xxxxxxxxx 2017-Present xxxxxxxxx [id number] 2014 Medicare [id number] 1959 Medicare [id number] 1959 Medicare [id number] 1959 Medicare [id number] 1959 Self-pay 1948 Unknown [id number] 1948 Unknown [id number] 1948 Unknown [id number] 1948 Unknown [id number] 1948 Unknown [id number] [id number] 1948 Unknown [id number] [id number]3 1948 Unknown [id number] [id number]3 1948 Unknown [id number] 1948 Unknown [id number] [id number] 1948 Unknown [id number] 2.16.840.1.192896.3.579.2.125 1948 Unknown [id number] 2.16.840.1.255808.3.579.2.125 1948 Unknown [id number] 2.16.840.1.636534.3.579.2.125 1948 Unknown [id number] 2.16.840.1.639148.3.579.2.125 1948 Unknown [id number] 2.16.840.1.472669.3.579.2.125 1948 Unknown [id number] 2.16.840.1.834870.3.579.2.125 1948 Unknown [id number] 2.16840.1.818066.3.579.2.125 1950 Unknown [id number] 2.16.840.1.020582.3.579.2.125 1950 Unknown [id number] 2.16.840.1.119630.3.579.2.125 1950 Unknown [id number] 2.16.840.1.331559.3.579.2.125 1950 Unknown [id number] 2.16.840.1.312907.3.579.2.125 1950 Unknown [id number] 2.16.840.1.251670.3.579.2.125 1950 Unknown [id number] 2.16.840.1.591063.3.579.2.125 1950 Unknown [id number] 2.16.840.1.102976.3.579.2.125 1950 Unknown [id number] 2.16.840.1.760000.3.579.2.125 1950 Unknown [id number] 2.16.840.1.976155.3.579.2.1258 1950 Unknown [id number] 2.16.840.1.241995.3.579.2.1258 1950 Unknown [id number] 2.16.840.1.597334.3.579.2.1258 1950 Unknown [id number] 2.16.840.1.471296.3.579.2.1258 1950 Unknown [id number] 2.16.840.1.316719.3.579.2.1258 1950 Unknown [id number] 2.16.840.1.761533.3.579.2.1258 1950 Unknown [id number] 2.16.840.1.070375.3.579.2.1258 1950 Unknown [id number] 2.16.840.1.157377.3.579.2.1258 1950 Unknown [id number] 2.16.840.1.226984.3.579.2.1258 1950 Unknown [id number] 2.16.840.1.321662.3.579.2.1259 Unknown [id number] 2.16.840.1.823489.3.579.2.593 Unknown [id number] 2.16.840.1.077853.3.579.2.531 Unknown [id number] 2.16.840.1.097916.3.579.2.531 Social History Date Type Detail Facility Start: 02-28-2019 End: 09-26-2019 Tobacco smoking status CTIS Light tobacco smoker [facility] History of tobacco use Cigarette Smoker [facility] Start: 09-26-2019 End: 11-02-2023 Cigarettes smoked current (pack per day) - Reported [facility] Start: 09-26-2019 End: 08-02-2023 Tobacco use and exposure Never used [employer] [facility] Start: 1950 Sex Assigned At Not on file [facility] Start: 02-03-2023 End: 11-02-2023 Sex Assigned At [facility] Start: 11-09-2021 Tobacco smoking stat us NHIS Ex-smoker [facility] History of tobacco use Current smoker [facility] History of tobacco use Passive smoker [facility] Start: 11-09-2021 End: 02-09-2024 Alcohol intake Current drinker of alcohol (finding) [facility] Start: 11-09-2021 Tobacco Comment Quit 10/2016 [facility] Start: 10-30-2021 End: 11-09-2021 Exposure to SARS-CoV-2 (event) Not sure [facility] Start: 08-19-2022 End: 08-02-2023 Tobacco smoking status NHIS Current some day smoker [facility] Start: 1950 Sex Assigned At Female [facility] Start: 04-24-2023 End: 04-29-2023 Alcohol intake Lifetime non-drinker (finding) [facility] Start: 01-22-2023 Alcohol Comment caffeine: 1-[address] [facility] Adult Depression Screening Assessment [address] [place] [address] How often to you hav e a drink containing alcohol? 4 or more times a week [facility] How many standard drinks containing alcohol do you have on a typical day? 3 or 4 [facility] How often do you hav e 6 or more drinks on 1 occasion? Less than monthly [facility] Start: 05-23-2023 Alcohol Comment caffeine: 5 diet cok es [facility] Goals Date Patient Goal Desired Activity /State Clinical Notes 04-13-2021 to 02-09-2024 Gunner Barrett MD - 02/09/2024 2:00 PM ESTPatient InstructionsFernando Hanna MD - 11/07/2023 10:30 AM EDT Note Date & Type Note Facility 02-09-2024 History of Present illness Narrative Skin Check Location: Patient requests a full body skin examination Dermatologic history: history of Actinic Keratosis Last visit: 1 year ago Established patient. All pertinent medical history, medications, and allergies were reviewed. General Exam: alert , oriented to person, place, and time , normal affect, well appearing Unaccompanied Scalp, Examined , exam limited by hair Right leg Examined Head, Face Examined Left leg Examined Neck Examined Right foot Examined Chest Examined Left foot Examined Back Examined Buttocks Examined Abdomen Examined Digits,nails: Examined Right arm Examined Patient wearing nail faroese, Denies dark streaks under finger nails, Denies dark streaks on toenails Left arm Examined Lymphatics: Not examined Hands Examined 1. Seborrheic keratosis Stuck on verrucous, waite-brown papules and plaques. Patient was counseled regarding these benign growths. Removal is normally not necessary, but they may be removed if they are symptomatic or for cosmetic reasons. 2. Lentigines Scattered waite macules in sun-exposed areas. The patient was informed that lentigines are benign pigmented lesions that occur on sun-exposed and sun-damaged skin. No treatment is necessary. Recommended regular use of broad spectrum sunscreen SPF 30 or higher Next Visit: 1 year documented in this encounter [facility] 11-07-2023 Instructions Faiza Mejia - 11/07/2023 10:59 AM EDT RTC in 6 months Lab draw same day Continue following with Dr. Barlow documented in this encounter [facility] 11-07-2023 History of Present illness Narrative Images from the original note were not included. NAME: Nadeen Oquendo CLINIC NO.: [id number] DATE [facility]: [facility] Some elements in this clinic note that are critical to medical decision making have been carefully reviewed and included from a prior clinic note dated: May 09, 2023 (Jaime) Referring Provider: Dr. Schuyler Barlow Additional Clinicians involved in Nadeen Oquendo's care: CC: CLL diagnosed 2014. ASSESSMENT: Chronic lymphocytic leukemia (HCC) - ICD9: 204.10, ICD10: C91.90 Her counts remain stable and she is asymptomatic. We will continue to monitor her counts every 6 months and see her in follow up. IGVH Mutated FISH normal - intermediate risk. Getting screening CT's with Dr. Barlow for high risk lung cancer. PLAN: RTC in 6 months Lab draw same day Continue following with Dr. Barlow HPI: CASE HISTORY: Reverse Chronological Order 2014 - Diagnosed with CLL Updated Visit, November 07, 2023: Ashley returns for a follow up, doing well overall. WBC: 24.44 today. She denies B symptoms including early satiety. No palpable lymphadenopathy. She does have a pulled muscle that is causing her pain. She was switched from Celexa to Zoloft. Updated Visit, May 09, 2023: Ashley continues [...] and labs are stable. 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 [...] in the next week. 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 [...] PERFORMANCE STATUS: 0 PHYSICAL EXAMINATION: Vitals: BP 127/75 Pulse 64 Temp (Src) 97.1 (Temporal) Resp 16 Ht 5' 9.016 (1.75m) Wt 136 lb 3.9 oz (61.8kg) SpO2 98% BMI 20.11 kg/(m^2). Body surface area is 1.73 meters [...] skin without rash, lesions, wounds or petechiae. Azam: Negative for suboccipital, cervical, submandibular, supraclavicular, axillary, epitrochlear LN chains. No hepatosplenomegaly. ALLERGIES: ALLERGIES Allergen Reactions Bee Venom Protein (* Unknown MEDICATIONS: sertraline (ZOLOFT) 50 mg tablet Take 75 mg by mouth once daily. busPIRone (BUSPAR) 15 mg tablet TAKE 1 [...] Take 40 mg by mouth once daily. (Patient not taking: Reported on 11/07/2023) LABORATORY VALUES: WBC (k/uL) Date Value 11/07/2023 24.44 (H) RBC (m/uL) Date Value 11/07/2023 4.49 Hemoglobin (g/dL) Date Value 11/07/2023 14.5 Hematocrit (%) Date Value 11/07/2023 41.4 MCV (fL) Date Value 11/07/2023 92.2 MCH (pg) Date Value 11/07/2023 32.3 MCHC (g/dL) Date Value 11/07/2023 35.0 RDW-CV (%) Date Value 11/07/2023 13.2 Platelet Count (k/uL) Date Value 11/07/2023 227 MPV (fL) Date Value 11/07/2023 9.7 Glucose (mg/dL) Date Value 11/07/2023 101 (H) BUN (mg/dL) Date Value 11/07/2023 13 Creatinine (mg/dL) Date Value 11/07/2023 0.80 Sodium (mmol/L) Date Value 11/07/2023 135 (L) Potassium (mmol/L) Date Value 11/07/2023 5.2 (H) Chloride (mmol/L) Date Value 11/07/2023 102 CO2 (mmol/L) Date Value 11/07/2023 23 Protein, Total (g/dL) Date Value 11/07/2023 6.6 Albumin (g/dL) Date Value 11/07/2023 4.7 Calcium, Total (mg/dL) Date Value 11/07/2023 9.5 Alkaline Phosphatase (U/L) Date Value 11/07/2023 82 Bilirubin, Total (mg/dL) Date Value 11/07/2023 0.4 AST (U/L) Date Value 11/07/2023 19 ALT (U/L) Date Value 11/07/2023 15 DIAGNOSIS: (C91.10) CLL (chronic lymphocytic leukemia) (HCC) (primary encounter diagnosis) Plan: URIC ACID, LACTATE DEHYDROGENASE, COMPLETE BLOOD COUNT AND DIFFERENTIAL, COMPREHENSIVE METABOLIC PANEL PAST MEDICAL HISTORY No date: Anxiety No date: CLL (chronic lymphocytic leukaemia) No date: GERD (gastroesophageal reflux disease) No date: Osteopenia PAST SURGICAL HISTORY No date: COLONOSCOPY No date: EGD No date: LAPAROSC PARTIAL NEPHRECTOMY Comment: left Social History Tobacco Use Smoking status: Former Current packs/day: 0.50 Types: Cigarettes Passive exposure: Past Smokeless tobacco: Never Tobacco comments: Quit 10/2016 Vaping Use Vaping status: Never Used Substance Use Topics Alcohol use: Yes Drug use: No No family history on file. I spent a total of 20 minutes on the date of service which included preparing to see the patient, [id number] patient care, completing clinical documentation, performing a medically appropriate examination, counseling and educating the patient/family/caregiver, ordering medications, tests, or procedures, independently interpreting results (not separately reported), communicating results to the patient/family/caregiver, and care coordination (not separately reported). Fernando Hanna MD, CPE Hematology and Oncology Services Provided at: [place], [place] Scribe Attestation: This note was scribed by Faiza Mejia on November 07, 2023 under the direction and supervision of Dr. Fernando Hanna. I attest that all of the information documented is correct to the best of my knowledge. Provider Attestation: I, Fernando Hanna MD, attest that all information documented by the above scribe is correct, and was supervised by me and under my direction. CC: Schuyler Barlow MD [facility] [facility] [address] documented in this encounter [facility] 11-07-2023 Note HNO ID: [id number] Author: FERNANDO HANNA MD Service: ? Author Type: Physician Type: Progress Notes Filed: 11/07/2023 18:52 Note Text: NAME: Nadeen Oquendo CLINIC NO.: [id number] DATE OF SERVICE: November 07, 2023 (Abhyankar) Some elements in this clinic note that are critical to medical decision making have been carefully reviewed and included from a prior clinic note dated: May 09, 2023 (Jaime) Referring Provider: Dr. Schuyler Barlow Additional Clinicians involved in Nadeen Oquendo's care: CC: CLL diagnosed 2014. ASSESSMENT: Chronic lymphocytic leukemia (HCC) - ICD9: 204.10, ICD10: C91.90 Her counts remain stable and she is asymptomatic. We will continue to monitor her counts every 6 months and see her in follow up. IGVH Mutated FISH normal - intermediate risk. Getting screening CT's with Dr. Barlow for high risk lung cancer. PLAN: RTC in 6 months Lab draw same day Continue following with Dr. Barlow HPI: CASE HISTORY: Reverse Chronological Order 2014 - Diagnosed with CLL Updated Visit, November 07, 2023: Ashley returns for a follow up, doing well overall. WBC: 24.44 today. She denies B symptoms including early satiety. No palpable lymphadenopathy. She does have a pulled muscle that is causing her pain. She was switched from Celexa to Zoloft. Updated Visit, May 09, 2023: Ashley continues [...] and labs are stable. 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 [...] in the next week. 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 [...] PERFORMANCE STATUS: 0 PHYSICAL EXAMINATION: Vitals: BP 127/75 Pulse 64 Temp (Src) 97.1 (Temporal) Resp 16 Ht 5' 9.016 (1.75m) Wt 136 lb 3.9 oz (61.8kg) SpO2 98% BMI 20.11 kg/(m2). Body surface area is 1.73 meters [...] anxiety or depression. Skin: Visible areas of s (more content not included)... [facility] 10-19-2023 Evaluation note Authored October 19, 2023 9:59 am Patient notes ongoing consti pation, patient notes some evening satiety but otherwise GI symptoms are entirely absent [facility] Work Phone: 1(114) 972-276202-19-2024 Instructions* Patient Instructions* Fernando Hanna MD - 05/09/2023 10:25 AM EST Follow up in 6 months. Lab draw same day. [facility] History of Present illness Narrative* Fernando Hanna MD - 05/09/2023 10:00 AM EST Images from the original note were not included. NAME: Nadeen Oquendo CLINIC NO.: [id number] DATE [facility]: [facility] Some elements in this clinic note that are critical to medical decision making have been carefully reviewed and included from a prior clinic note dated: November 08, 2022 (ramontee) Referring Provider: Dr. Schuyler Barlow Additional Clinicians involved in Nadeen Oquendo's care: CC: CLL diagnosed 2014. ASSESSMENT: Chronic lymphocytic leukemia (HCC) - ICD9: 204.10, ICD10: C91.90 Her counts remain stable and she is asymptomatic. We will continue to monitor her counts every 6 months and see her in follow up. IGVH Mutated FISH normal - intermediate risk. Getting screening CT's with Dr. Barlow for high risk lung cancer. PLAN: Follow up in 6 months. Lab draw same day. Continue following with Dr. Barlow HPI: CASE HISTORY: Reverse Chronological Order 2014 [...] and labs are stable. 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 [...] in the next week. 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 [...] THE FIRST WEEK THEN INCREASE TO TWICE ADAY Omeprazole 40 mg capsule Take 40 mg [...] which included preparing to see the patient, [id number]-riqu patient care, completing clinical documentation, performing a medically appropriate examination, counseling and educating the patient/family/caregiver, ordering medications, tests, or procedures, independently interpreting results (not separately reported), communicating results to the patient/family/caregiver, and care coordination (not separately reported). Fernando Hanna MD, CPE Hematology and Oncology Services Provided at: [place], [place] CC: Schuyler Barlow MD [address] [place] [address] [facility] NoteHNO ID: [id number] Author: FERNANDO HANNA MD Service: ? Author Type: Physician Type: Progress Notes Filed: 05/09/2023 18:22 Note Text: NAME: Oquendo Nadeen CLINIC NO.: [id number] DATE OF SERVICE: May 09, 2023 (Jaime) Some elements in this clinic note that are critical to medical decision making have been carefully reviewed and included from a prior clinic note dated: November 08, 2022 (Jaime) Referring Provider: Dr. Schuyler Barlow Additional Clinicians involved in Nadeen Oquendo's care: CC: CLL diagnosed 2014. ASSESSMENT: Chronic lymphocytic leukemia (HCC) - ICD9: 204.10, ICD10: C91.90 Her counts remain stable and she is asymptomatic. We will continue to monitor her counts every 6 months and see her in follow up. IGVH Mutated FISH normal - intermediate risk. Getting screening CT's with Dr. Barlow for high risk lung cancer. PLAN: Follow up in 6 months. Lab draw same day. Continue following with Dr. Barlow HPI: CASE HISTORY: Reverse Chronological Order 2014 [...] and labs are stable. 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 [...] in the next week. 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 [...] mg tablet TAKE 1 (more content not included)...[facility]02-15-2024 Telephone encounter Note* Telephone Encounter - ALEXI Esposito - 05/05/2023 1:15 PM EST Late entry: 04/26/2023 2:20pm BRYSON returned phone call to Jenn at Dr. Barlow's office. Pt had informedSW at last appointment that they wanted to talk with SW prior to prescribing Pt anxiety medication,and gave verbal permission for SW to talk with her PCP's office. Jenn is aware that Pt has an initial appointment scheduled to see sewing machine operator plastic zipper, Michoacano Mendes, in June for medication management for pt's anxiety. BRYSON explained to Jenn that medication management is out of BRYSON's scope of practice and simply shared that pt was reporting that her PRN Xanax was not effective at alleviatingher anxiety symptoms and sw was concerned about pt having to wait till June to get some relief. Jenn shared that she would share this information with Dr. Barlow and they would contact pt informingher of what Dr. Barlow decides to do with her medication. [facility] Work Phone: 1(137) 539-414202-15-2024 Miscellaneous Notes* Telephone Encounter - ALEXI Esposito - 05/05/2023 1:15 PM EST Late entry: 04/26/2023 2:20pm SW returned phone call to Jenn at Dr. Barlow's office. Pt had informedSW at last appointment that they wanted to talk with SW prior to prescribing Pt anxiety medication,and gave verbal permission for SW to talk with her PCP's office. Jenn is aware that Pt has an initial appointment scheduled to see sewing machine operator plastic zipper, Michoacano Mendes, in June for medication management for pt's anxiety. BRYSON explained to Jenn that medication management is out of BRYSON's scope of practice and simply shared that pt was reporting that her PRN Xanax was not effective at alleviatingher anxiety symptoms and sw was concerned about pt having to wait till June to get some relief. Jenn shared that she would share this information with Dr. Barlow and they would contact pt informingher of what Dr. Barlow decides to do with her medication. * Telephone Encounter - Radha Martinez - 04/26/2023 2:[address] Annette Sierra nurse called and would like to speak to Kylee Rosales regarding a mutual patient Nadeen Oquendo 1950 ( to call her back she said p. [phone] and push option 1 let them know that you're trying to reach Dr. Annette Sierra and they'll send you to her, this afternoon they have a light schedule. (lunch 12:30-1pm) ) [id number] Telephone encounter Note* Telephone Encounter - Radha Martinez - 04/26/2023 2:[address] Annette Sierra nurse called and would like to speak to Kylee Rosales regarding a mutual patient Nadeen Oquendo 1950 ( to call her back she said p. [phone] and push option 1 let them know that you're trying to reach Dr. Bryant nurse Mariela and they'll send you to her, this afternoon they have a light schedule. (lunch 12:30-1pm) ) [id number]* Encounter Date Diagnosis Assessment Notes Treatment Notes Treatment Clinical Notes Apr, LEO (generalized anxiety disorder) (ICD-10 - F41.1) [employer] Other 01-31-2024 Evaluation note* Encounter Date Diagnosis [...] w/ BB. Avoid stimulants, decrease caffeine intake [employer] Other 12-15-2023 Evaluation note* Encounter Date Diagnosis Assessment Notes Treatment Notes Treatment Clinical Notes Feb, Cardiomegaly (ICD-10 - I51.7) Feb, Persistent cough (ICD-10 - R05.3) Feb, Dyspnea on exertion (ICD-10 - R06.09) [employer] Other 12-14-2023 Evaluation note* Encounter Date Diagnosis Assessment Notes Treatment Notes Treatment Clinical Notes Feb, Cardiomegaly (ICD-10 - I51.7) Feb, Persistent cough (ICD-10 - R05.3) Feb, Dyspnea on exertion (ICD-10 - R06.09) [employer] Other 12-11-2023 Evaluation note* Encounter Date Diagnosis Assessment Notes Treatment Notes Treatment Clinical Notes Feb, Chronic obstructive pulmonary disease with (acute) exacerbation (ICD-10 - J44.1) [employer] Other 12-08-2023 Evaluation note* Encounter Date Diagnosis [...] infection 6 wks earlier but worsened lastely [employer] Other 12-01-2023 Evaluation note* Encounter Date Diagnosis Assessment Notes Treatment Notes Treatment Clinical Notes Feb, LEO (generalized anxiety disorder) (ICD-10 - F41.1) Healthy diet and exercise. Keep active. 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 Discussed augmenting Celexa for breakthrough mood swings. Refer for counseling. [employer] Other 11-13-2023 Evaluation note* Encounter Date Diagnosis Assessment Notes Treatment Notes Treatment Clinical Notes Jan, Simple chronic bronchitis (ICD-10 - J41.0) [employer] Other 10-25-2023 Evaluation note* Encounter Date Diagnosis Assessment Notes Treatment Notes Treatment Clinical Notes Dec, Bee sting, accidental or unintentional, initial encounter (ICD-10 - T63.441A) Cleanse area w/ soap and water. Ice to RUE qid. Elevate hand above elbow to avoid hand/fingers swelling Dec, Allergic reaction, initial encounter (ICD-10 - T78.40XA) Benadryl at HS. CLaritin q am. Topical crms not beneficial [employer] Other 09-29-2023 Evaluation note* Encounter Date Diagnosis Assessment Notes Treatment Notes Treatment Clinical Notes Nov, Sprain of other ligament of right ankle, initial encounter (ICD-10 - S93.491A) ROM exercises, ice/heat and Tylenol Voltaren Gel qid Use pain as guideline XR but unlikely to be fx [employer] Other 09-16-2023 Evaluation note* Encounter Date Diagnosis [...] no improvement in 2 to 3 days [employer] Other 08-21-2023 NoteHNO ID: [id number] Author: Fernando Hanna MD Service: ? Author Type: Physician Type: Progress Notes Filed: 11/08/2022 12:52 PM Note Text: NAME: Nadeen Oquendo CLINIC NO.: [id number] DATE OF SERVICE: November 08, 2022 (Jaime) Some elements in this clinic note that are critical to medical decision making have been carefully reviewed and included from a prior clinic note dated: May 11, 2022 ([place]) AND November 09, 2021 (Jaime) Referring Provider: Dr. Schuyler Barlow Additional Clinicians involved in Nadeen Oquendo's care: [...] and labs are stable. 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 [...] in the next week. 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 [...] Count (k/uL) Date [facility] (more content not included)...[facility]06-01-2023 Procedure [facility]04-05-2023 Evaluation note* Encounter Date Diagnosis Assessment Notes [...] cancer (ICD-10 - Z12.2) LDCT in September, [employer] Other 03-08-2023 Evaluation note* Encounter Date Diagnosis Assessment Notes Treatment Notes Treatment Clinical Notes May, Chronic idiopathic constipation (ICD-10 - K59.04) May, Hemorrhoids (ICD-10 - K64.9) [employer] Other 02-20-2023 History of Present illness Narrative* Citlaly Cole APRN.RON - 05/10/2022 9:23 AM EST Images from the original note were not included. NAME: Jere Nadeen [facility] NO.: [id number] DATE OF SERVICE: May 11, 2022 Some elements in this clinic note that are critical to medical decision making have been carefully reviewed and included from a prior clinic note dated: November 09, 2021. Referring Provider: Dr. Schuyler Barlow Additional Clinicians involved in Nadeen Oquendo's care: [...] and labs are stable. 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 [...] in the next week. 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 [...] No family history on file. Citlaly Cole APRN.CNP [place], [place] CC: Schuyler Barlow MD [address] [facility] [address] I spent a total of 20 minutes on the date of the service which included preparing to see the patient, iedt-qw-uahk patient care, completing clinical documentation, obtaining and/or reviewing separately obtained history, performing a medically appropriate examination, counseling and educating the pat ient/family/caregiver, ordering medications, tests, or procedures, independently interpreting results (not separately reported), and communicating results to the patient/family/caregiver. [facility] Miscellaneous Notes* Telephone Encounter - Kimberly Coker Ma - 05/07/2022 2:50 PM EST Lab orders for appointment on 05/10/22 Kimberly Coker Ma documented in this [facility] [place]10-09-2022 Evaluation note* Encounter Date Diagnosis Assessment Notes [...] take with food to prevent stomach upset. [employer] Other [id number] Instructions* Patient Instructions* Fernando Hanna MD - 11/09/2021 9:37 AM EDT 1. RTC 6 months 2. Lab draw same day. documented in this [facility] [place]08-22-2022 History of Present illness Narrative* Fernando Hanna MD - 11/09/2021 9:30 AM EDT Images from the original note were not included. NAME: Nadeen Oquendo CLINIC NO.: [id number] DATE OF SERVICE: November 09, 2021 Some elements in this clinic note that are critical to medical decision making have been carefully reviewed and included from a prior clinic note dated: May 11, 2021 Referring Provider: Schuyler Barlow Additional Clinicians involved in Nadeenceline Oquendo's care: CC: CLL diagnosed 2014 ASSESSMENT: [...] and labs are stable. 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 [...] in the next week. 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 [...] which included preparing to see the patient, aogy-xg-[id number] patient care, completing clinical documentation, performing a medically appropriate examination, and ordering medications, tests, or procedures. Fernando Hanna MD, CPE [place], [place] CC: Schuyler Barlow MD [address] [facility] [address] [facility] NoteHISTORY AND PHYSICAL EXAMINATION HISTORY: The patient [...] go forward with her elective procedure. [facility] Signed and Approved by: RIVERA SAINI 04/27/2021 13:25:00[facility]02-10-2022 NoteOPERATIVE NOTE OPERATION DATE: 03-26-21 [...] was injected into the anterior chamber and [facility] cell sponge was used to check the wounds to be water tight. One drop of apraclonidine and 1 drop of prednisolone acetate were placed into the eye and shield was placed over top. The patient was sent to the postoperative area in satisfactory condition to followup the following day for postoperative care. [facility] Signed and Approved by: RIVERA SAINI 04/27/2021 13:24:00[facility]02-10-2022 NoteOP Note 03/26/2021 SURGEON: Rivera Saini D.O. PREOPERATIVE DIAGNOSIS: Nuclear sclerotic cataract left [...] ensuring mobility, phacoemulsification was performed in a vgbwlme-fef-bbjrpp-type fashion. After all nuclear material had been [...] up the following day for postoperative care.[facility] [id number] NotePre-Op History and Physical HISTORY: Patient is [...] decline other than that of cataract. 2. [id number] patient was briefed in the office and [...] go forward with this elective procedure. [facility] Signed and Approved by: RIVERA SAINI 05/27/2021 16:29:00[facility] [id number] NoteOP Note DATE OF SERVICE: 04/30/2021 SURGEON: Rivera Saini D.O. PREOPERATIVE DIAGNOSIS: Nuclear sclerotic cataract right [...] ensuring mobility, phacoemulsification was performed in a kwcleag-fjg-ivstqx-type fashion. After all nuclear material had been [...] the following day for postoperative care. [facility] Signed and Approved by: RIVERA SAINI 05/27/2021 16:29:00[facility]02-10-2022 NoteNAME: Chaka Oquendo#: [id number] DATE OF : 1950MEDICAL REC#: [id number] MEDICAL ANTHROPOLOGY DIRECTOR: Jenny Soria DATE: MACHINE PACK ASSEMBLER DATE: 05/02/2021 12:42:54 pmDICTATING PHYSICIAN: Rivera Saini DICTATION DATE: 04/29/2021 12:45:24 pm Pre-Op History [...] decline other than that of cataract. 2. [id number]-[id number] patient was briefed in the office and [...] and go forward with this elective procedure.[facility] [id number] Evaluation note* Encounter Date Diagnosis Assessment Notes Treatment Notes Treatment Clinical Notes Mar, Hemorrhoids (ICD-10 - K64.9) START ANUSOL HC CREAM BID Mar, Chronic idiopathic constipation (ICD-10 - K59.04) Mar, History of colon polyps (ICD-10 - Z86.010) REPEAT COLONOSCOPY Mar, Other CONTINUE [employer] T S AT [employer] Other Evaluation note* Diagnosis Chronic lymphocytic leukemia (HCC)- Primary Chronic lymphoid leukemia, without mention of having achieved remission [facility]* Diagnosis Chronic lymphocytic leukemia (HCC)- Primary Chronic lymphoid leukemia, without mention of having achieved remission [facility]* Diagnosis Chronic lymphocytic leukemia (HCC)- Primary Chronic lymphoid leukemia, without mention of having achieved remission documented in this encounter [facility] HospitalEvaluation noteNo InformationNort [employer] Other Evaluation noteNo assessment information available [facility] Work Phone: Evaluation note* Diagnosis Onset Date Resolution Status Ankle sprain acute Cryptic tonsil acute RLS (restless legs syndrome) acute Chronic bronchitis acute LEO (generalized anxiety disorder) acute GERD (gastroesophageal reflux disease) acute Major depression acute Medicare annual wellness visit, subsequent noneactive [facility] Work Phone: Evaluqhosd note* Author William Hirsch [facility] Authored October 19, 2023 9:59 am Patient notes ongoing javadi brayden, patient notes some evening satiety but otherwise GI symptoms are entirely absent [facility] Work Phone: Evaluation note* Diagnosis CLL (chronic lymphocytic leukemia) (HCC)- Primary Chronic lymphoid leukemia, without mention of having achieved remission [facility]* Diagnosis Seborrheic keratosis- Primary Lentigines documented [facility] Author Jake Mireles [facility] August 19, 2022 8:02am Note Date/Time August 19, 2022 8:02a m [facility] [address] [place] [address] Gastroenterology H&P Signed Patient: Nadeen Oquendo MR#: [id number] : 1950 Acct:[id number] Age/Sex: 71 / F Adm Date: 3 Loc: Room: Type: [facility] Attending Dr: Jake Mireles MD Copies to: [...] MD Documented By: Jake Mireles MD 08/19/22 0800 Signed By: <Electronically signed by Jake Mireles MD> 08/19/22 0802 [facility] Work Phone: Hisqtzw general Narrative - Reported* Type Description Date Medical History Constipation - functional Medical History Chronic lymphatic leukemia Medical History MVP (mitral valve prolapse) Medical History Gastroesophageal ref lux disease, esophagitis presence not specified Medical History Anxiety Surgical History LEFT KIDNEY (SPOT REMOVED) Surgical History eye surgery [employer] Other Hisvtkh general Narrative - Reported* Type Description Date [...] extraction 04/27/21 Hospitalization History see surgical history [employer] Other History general Narrative - Reported* Type [...] years 08/2022 Hospitalization History see surgical history [employer] Other Hospital Discharge instructions Additional Instructions DISCHARGE [...] NOT operate machinery such as power tools, [employer] mowers, snow blowers, sewing machines, etc. for [...] years. -Follow up with PCP. -Office number [phone].[facility] Work Phone: Reason for referral (narrative)* Reason Referral for appliance counselor ing Diagnosis 1 LEO (generalized anx iety disorder) (F41.1) Referral Organization [facility] Yen jarquin Referring Provider First Name Schuyler Referring Provider Last Name Yen Referring Provider Specialty Internal Me javier Referred Organization [facility] Referred Provider Yi Le Referred Address ,[place], [place],[address] Referred Provider Specialty Psychiatry Referral Priority Routine General Notes Patient being referr ed for counseling for LEO and depression. [employer] Other Summary Purpose Family History No Family History Records Found Relationship Condition Age at Onset Recorded Date/T [...] Unknown Lymphoma Unknown mother Unknown Advance Directives No Advanced Directives Records Found Advance Directive Response Recorded Date/ Time Advance [...] file Gets together: Not on file Attends lutheran service: Not on file Active member of [...] file Gets together: Not on file Attends lutheran service: Not on file Active member of [...] breast cancer Constipation GERD (gastroesophageal reflux disease) Chief Complaint nerve medication dis cussion 1 yr follow up/ constipation hand tremors Reason for Visit Chronic bronchitis LEO (generalized anxiety disorder) GERD (gastroesophageal reflux disease) Major depression Medicare annual wellness visit, subsequent Screening mammogram for breast cancer Constipation GERD (gastroesophageal reflux disease) Chronic bronchitis LEO (generalized anxiety disorder) Major depression Chief Complaint 1 yr follow up/ cons tipation hand tremors UA, pain in abd and bleeding when urinating Reason for Visit Constipation GERD (gastroesophageal reflux disease) Chronic bronchitis LEO (generalized anxiety disorder) Major depression Raynaud's phenomenon Additional Source Comments INFORMATION SOURCE (unrecogn ized section and content) DATE CREATED AUTHOR 09/06/2017 [facility] DATE CREATED AUTHOR AUTHOR'S ORGANIZ ATION 10/20/2021 [facility] DATE CREATED AUTHOR AUTHOR'S ORGANIZ ATION 02/10/2022 [facility] DATE CREATED AUTHOR AUTHOR'S ORGANIZ ATION 12/11/2022 [facility] DATE CREATED AUTHOR AUTHOR'S ORGANIZ ATION 11/08/2023 [facility] DATE CREATED AUTHOR AUTHOR'S ORGANIZ ATION 02/12/2024 [facility] d[facility] Specialists EPIC Reason for Visit (unrecogniz ed section and content) Reason Comments Cosmetic Botox injection. Las t Botox injection was on 01/24/19. Reason Comments Cosmetic Restylane injection. Last Restylane injection was on 01/25/17. Reason Comments Leukemia 6 month follow up Reason Comments Lab Orders Reason Comments Leukemia Reason Comments Skin Check Source Comments (unrecognize d section and content) In the event this informatio n is protected by the Federal Confidentiality of Alcohol and Drug Abuse Patient Records regulations: The Federal rules restrict any use of the information to criminally investigate or prosecute any alcohol or drug abuse patient.[facility] Hospital[facility] the event this information is protected by the Federal Confidentiality of Alcohol and Drug Abuse Patient Records regulations: The Federal rules restrict any use of the information to criminally investigate or prosecute any alcohol or drug abuse patient.[facility] HospitalIn the event this information is protected by the Federal Confidentiality of Alcohol and Drug Abuse Patient Records regulations: The Federal rules restrict any use of the information to criminally investigate or prosecute any alcohol or drug abuse patient.[facility] HospitalIn the event this information is protected by the Federal Confidentiality of Alcohol and Drug Abuse Patient Records regulations: The Federal rules restrict any use of the information to criminally investigate or prosecute any alcohol or drug abuse patient.[facility] HospitalIn the event this information is protected by the Federal Confidentiality of Alcohol and Drug Abuse Patient Records regulations: The Federal rules restrict any use of the information to criminally investigate or prosecute any alcohol or drug abuse patient.[facility] Care Teams (unrecognized sec tion and content) Team Status: Active Member Role Status Dates Schuyler Barlow DO Primary Care Provider Active Team Status: Inactive Member Role Status Dates Schuyler Barlow DO Primary Care Provide r, Attending Provider Active Start: September 05, 2023 End: September 05, 2023 Team Status: Inactive Member Role Status Dates Schuyler Barlow DO Primary Care Provider Active Start: October 19, 2023 End: October 19, 2023 William Hirsch APRN Attending Provider Active Start: October 19, 2023 End: October 19, 2023 Team Status: Active Member Role Status Dates Schuyler Barlow DO Primary Care Provider Active Start: June 17, 2023 WALLY Antonio Attending Provider Active Start : June 17, 2023 Team Status: Inactive Member Role Status Dates Schuyler Barlow DO Primary Care Provide r, Attending Provider Active Start: June 20, 2023 End: June 20, 2023 Retail Helper Relationship Specialty Start Date End Date Schuyler Barlow DO PCP - General Internal Medicine 08/22/14 Retail Helper Relationship Specialty Start Date End Date Schuyler Barlow DO PCP - General Internal Medicine 08/22/14 Retail Helper Relationship Specialty Start Date End Date Schuyler Barlow DO PCP - General Internal Medicine 08/22/14 Team Status: Inactive Member Role Status Dates Schuyler Barlow DO Primary Care Provider Active Jake Mireles MD Attending Provider Active Team Status: Inactive Member Role Status Dates Schuyler Barlow DO Primary Care Provider Active JENARO OdonnellC Attending Provider Active Retail Helper Relationship Specialty Start Date End Date Schuyler Barlow DO PCP - General Internal Medicine 08/22/14 Team Status: Inactive Member Role Status Dates Schuyler Barlow DO Attending Provider Active Sta rt: April 20, 2023 End: April 20, 2023 Team Status: Active Member Role Status Dates Schuyler Barlow DO Primary Care Provide r, Attending Provider Active Start: May 09, 2023 Retail Helper Relationship Specialty Start Date End Date Schuyler Barlow DO PCP - General Internal Medicine 08/22/14 Team Status: Active Member Role Status Dates Schuyler Barlow DO Primary Care Provider Active Start: November 07, 2023 Fernando Hanna MD Attending Provider Active Start: November 07, 2023 Team Status: Inactive Member Role Status Dates Schuyler Barlow DO Primary Care Provide r, Attending Provider Active Start: November 25, 2023 End: November 25, 2023 Team Status: Inactive Member Role Status Dates Schuyler Ball , DO Primary Care Provide r, Attending Provider Active Start: January 06, 2024 End: January 06, 2024 Retail Helper Relationship Specialty Start Date End Date Schuyler Barlow MD [address] [place] [id number] PCP - General Internal Medicine 11/02/23 Retail Helper Relationship Specialty Start Date End Date Schuyler Barlow MD [address] [place] [id number] PCP - General Internal Medicine 11/02/23 Goals (unrecognized section and content) Goals may [...] BE BASED ON THE PRIMARY CLINICAL RECORDS. [employer] provides no warranty or guarantee of the accuracy or completeness of information in this document.
--- NOTE | 2024-03-04 07:47 | CT_ITS ---
[facility] [place] [id number] Patient Name: ALBERTINA LANE MRN: [id number] date: 1950 Sex: F Assigned Patient Location: ER Current Patient Location: ER Accession/Order Number: [id number] Exam Date: 03/04/2024 07:55 Report Date: 03/04/2024 08:22 At the request of: LYLA SIMON Procedure: CT cervical spine wo con CERVICAL SPINE CT WITHOUT CONTRAST: 03/04/2024 7:55 AM EST Clinical History:fall, injury Comparison: 02/06/2022 . Unenhanced helically acquired data per protocol. PREVERTEBRAL/PARASPINAL: No focal soft tissue prominence or obvious fluid collection in these regions ALIGNMENT: No change. No evidence of acute fracture or dislocation. Again, DDD, mild retrolisthesis, and spondylosis at C5-C6. Again, significant DJD uncovertebral joints at this level. Multilevel facet DJD with overgrowth is again demonstrated. No focal OTHER SOFT TISSUES: No focal acute posttraumatic finding. CT/CT cervical spine wo con IMPRESSION: 1. No evidence of acute fracture or dislocation. All CT scans at this facility use dose modulation, iterative reconstruction, and/or weight based dosing when appropriate to reduce radiation dose to as low as reasonably achievable. Electronically authenticated by: VERONICA COLLINS Date: 03/04/2024 08:22
--- NOTE | 2024-03-04 07:47 | CT_ITS ---
[facility] [place] [id number] Patient Name: ALBERTINA LANE MRN: [id number] date: 1950 Sex: F Assigned Patient Location: ER Current Patient Location: ER Accession/Order Number: [id number] Exam Date: 03/04/2024 07:55 Report Date: 03/04/2024 08:15 At the request of: LYLA SIMON Procedure: CT head/brain wo con HEAD CT WITHOUT CONTRAST: 03/04/2024 7:55 AM EST Clinical Data: fall, injury Comparison: 02/06/2022 Unenhanced axial data from base to vertex. INTRA-AXIAL: No acute hemorrhage. No acute infarction is evident. EXTRA-AXIAL: No acute hemorrhage. No focal fluid collection. BRAIN VOLUME: Unremarkable for age. VENTRICLES: No hydrocephalus PARANASAL SINUSES: No air-fluid levels in the included aspects. MASTOIDS: Clear. CALVARIUM: No acute finding. . EXTRACALVARIAL: No acute findings. Bilateral DJD at the TMJs CT/CT head/brain wo con IMPRESSION: 1. No evidence of acute intracranial process on this unenhanced study as described. All CT scans at this facility use dose modulation, iterative reconstruction, and/or weight based dosing when appropriate to reduce radiation dose to as low as reasonably achievable. Electronically authenticated by: VERONICA COLLINS Date: 03/04/2024 08:15
--- NOTE | 2024-03-04 07:48 | ED.GENADUL1 ---
HPI HPI - General Adult General Chief complaint: Wound/Laceration Stated complaint: FALL, HEAD INJURY Time Seen by Provider: 03/04/24 07:16 Source: patient Mode of arrival: walk-in Limitations: no limitations History of Present Illness HPI narrative: 73-year-old female to the emergency department with chief complaint of accidental fall. She slipped in some water in the bathroom and fell backwards striking her head on the ground. She reports that there was some bleeding from her scalp. She reports that she has some pain in her neck, mild headache. She denies any vision changes, numbness, weakness, tingling. She denies any thoracic or lumbar back pain. No extremity injuries. She is able to ambulate without difficulty. Related Data Previous Rx's ?Medication ?Instructions ?Recorded bacitracin 500 unit/gram topical 1 applic topical BID 7 days #14 03/04/24 ointment grams Allergies Allergy/AdvReac Type Severity Reaction Status Date / Time No Known Drug Allergies Allergy Verified 03/04/24 07:12 Opioid HPI Opioid Management Most Recent Opioid Data: No Data to Display Review of Systems ROS Status of ROS 10 or more systems reviewed and unremarkable except as noted in history and below Exam Narrative Exam Narrative: VITALS: I have reviewed the triage vital signs. GENERAL: Well developed, well appearing adult in no acute distress. NEURO: Alert and oriented. Moves all extremities. Face is symmetric and expressive. EYES: PERRL. No scleral icterus or conjunctival injection. No discharge. HENT: Normocephalic. There is a 2 mm linear laceration to the left occipital scalp. Hearing is grossly intact. Nares grossly patent and without discharge. Mucous membranes moist. NECK: No JVD. Patient moves neck without restriction. Right lateral neck tenderness. CARDIO: Rhythm regular. Normal rate. No murmur, rub, or gallop. Pulses equal bilaterally in the upper and lower extremity. No lower extremity edema. PULM: Lungs clear to auscultation in all rausch. No wheezes, rales, or rhonchi. No conversational dyspnea. No splinting, stridor, or accessory muscle use. GI/: Abdomen is soft and non-tender. Normoactive bowel sounds. EXTREMITIES: Symmetric muscle bulk. No joint swelling. No clubbing, cyanosis, or deformity. SKIN: Warm and dry. Normal turgor. No rash or lesions appreciated. PSYCH: Mood, affect, and interaction is appropriate to the setting. Constitutional Vital Signs, click to edit/add: Last Vital Signs Temp 97.6 F 03/04/24 07:12 Pulse 72 03/04/24 07:12 Resp 18 03/04/24 07:12 BP 146/68 H 03/04/24 07:12 Pulse Ox 100 03/04/24 07:12 O2 Del Method Room Air 03/04/24 07:12 Course Vital Signs Vital signs: Vital Signs Temperature 97.6 F 03/04/24 07:12 Pulse Rate 72 03/04/24 07:12 Respiratory Rate 18 03/04/24 07:12 Blood Pressure 146/68 H 03/04/24 07:12 Pulse Oximetry 100 03/04/24 07:12 Oxygen Delivery Method Room Air 03/04/24 07:12 Temperature 97.6 F 03/04/24 07:12 Pulse Rate 72 03/04/24 07:12 Respiratory Rate 18 03/04/24 07:12 Blood Pressure 146/68 H 03/04/24 07:12 Pulse Oximetry 100 03/04/24 07:12 Oxygen Delivery Method Room Air 03/04/24 07:12 Medical Decision Making MDM Narrative Medical decision making narrative: 73-year-old female to the emergency department with chief complaint of accidental fall after slipping on water. She has a small scalp laceration. Head injury as well as some neck pain. CT head and cervical spine ordered as she cannot be ruled out by clinical decision rules alone. Patient agrees with this plan. No other injuries identified. CT head: Negative CT cervical spine: Negative Laceration of the scalp was examined. No active bleeding. They cleaned it out at home prior to arrival. Her tetanus is up-to-date. It is very small, not amenable to any repair. Bacitracin, discussed wound care. All questions were answered. The patient was discharged home. Imaging Data CT scan - head: Attestation: I personally reviewed and interpreted this imaging study as follows: Radiologist's impression: ITS Impressions Cervical Spine CT 03/04/24 07:47 IMPRESSION: 1. No evidence of acute fracture or dislocation. All CT scans at this facility use dose modulation, iterative reconstruction, and/or weight based dosing when appropriate to reduce radiation dose to as low as reasonably achievable. Electronically authenticated by: VERONICA COLLINS Date: 03/04/2024 08:[address] 03/04/24 07:47 IMPRESSION: 1. No evidence of acute intracranial process on this unenhanced study as described. All CT scans at this facility use dose modulation, iterative reconstruction, and/or weight based dosing when appropriate to reduce radiation dose to as low as reasonably achievable. Electronically authenticated by: VERONICA COLLINS Date: 03/04/2024 08:15 Discharge Plan Discharge Chief Complaint: Wound/Laceration Clinical Impression: Laceration of scalp, Closed head injury, Neck sprain Patient Disposition: Home, Self-Care Time of Disposition Decision: 08:26 Condition: Good Mode of Transportation: Private Vehicle Prescriptions / Home Meds: New bacitracin 500 unit/gram ointment 1 applic topical BID 7 Days Qty: 14 0RF Print Language: Moldovan Instructions: Laceration (ED), Head Injury (ED) Additional Instructions: Call the office of your primary care doctor to arrange for follow-up within the above-stated timeframe. Your ED visit was focused on your acute issue and does not replace primary care. You should review your labs, imaging, and diagnoses from this ED visit with your primary care physician. There may be non-emergent/ incidental findings that need further evaluation. You should review your vital signs including blood pressure with your PCP. If you were prescribed medications you should discuss possible side-effects and drug interactions with your pharmacist. Call 911 or go to the nearest Emergency Department if you develop any new or worsening symptoms. Seek immediate medical attention if you develop: new or worsening headache, nausea, vomiting, confusion, weakness, loss of motion in your arms or legs, loss of control of your urine or stool, difficulty waking from sleep, or any new or worsening symptoms. Keep scalp clean and dry. Apply topical antibiotic daily. Referrals: Schuyler Desir DO [Primary Care Provider] - 1 week Discharge Date/Time: 03/04/24 08:32
--- NOTE | 2024-03-04 08:20 | PC.NURSE ---
Personal Care Aide was called to the side by the and was asked if the doctor would be willing to discharge the patient home and call with the results. Personal Care Aide spoke with the doctor and stated that this could happen as long as the patient was in agreeance. Personal Care Aide went to the patient's room and she agreed that was her wishes. Personal Care Aide stated that any positive results would be called to her. Pt and spouse denies any further needs at this time
== END 2024-03-04 08:32 | disposition home or self-care (01) ==
PROVIDERS: Emergency Provider Student in an Organized Health Care Education/Training Program; PCP Internal Medicine
DX: S01.01XA Laceration without foreign body of scalp, initial encounter (principal); S13.9XXA Sprain of joints and ligaments of unspecified parts of neck, initial encounter; S09.8XXA Other specified injuries of head, initial encounter; W01.0XXA Fall on same level from slipping, tripping and stumbling without subsequent striking against object, initial encounter
CPT/HCPCS: 70450; 72125; 99284

== ENCOUNTER 2024-06-06 12:15 | Outpatient (OUT) | payer MEDICARE, SELFPAY ==
--- OUTSIDE RECORDS SUMMARY | 2024-06-06 12:22 | XMS_ITS | CCD ---
Author Organization [facility] Care Team Providers Care Steamer Blocker Name Role Phone GHAZOUL, RODOLFO Unavailable Unavailable GHAZOUL, RODOLFO Unavailable Unavailable GHAZOUL, RODOLFO Unavailable Unavailable SELF, SELF Unavailable Unavailable Schuyler Barlow Primary Care Provider Schuyler Barlow Primary Care Provider Kedar Paredes Unavailable Schuyler Barlow DO Primary Care Provider Amy Hernandez Unavailable YEN, DR SPEARS Consulting Unavailable BALL, DR SPEARS Primary Care Unavailable BALL, DR SPEARS Attending Unavailable BALL, DR SPEARS Admitting Unavailable ZIEBROMARIO, DR GUERLINE Isbell Consulting Unavailable USMAN, DR KEDAR Mojica Consulting Unavailable YEN, DR SPEARS Primary Care Unavailable USMAN, DR KEDAR Mojica Attending Unavailable USMAN, DR KEDAR Mojica Admitting Unavailable YEN, DR SPEARS Primary Care Unavailable BALL, DR SPEARS Attending Unavailable BALL, DR SPEARS Admitting Unavailable GRANT, DR DORITA Isbell Attending Unavailable GRANT, DR DORITA Isbell Admitting Unavailable GRANT, DR DORITA Isbell Consulting Unavailable BALL, DR SPEARS Primary Care Unavailable JAYNE, ALFREDO Consulting Unavailable REQUEST, DR NINA LISTED Consulting Unavaila ble BALL, DR SPEARS Primary Care Unavailable REQUEST, DR NINA LISTED Attending Unavaila ble REQUEST, DR NINA LISTED Admitting Unavaila ble PARVEEN, RIVERA Consulting Unavailable YEN, DR SPEARS Primary Care Unavailable PARVEEN, RIVERA Attending Unavailable PARVEEN, RIVERA Admitting Unavailable RIVERA SAINI Consulting Unavailable BALL, DR SPEARS Referring Unavailable BALL, DR SPEARS Primary Care Unavailable RIVERA SAINI Attending Unavailable RIVERA SAINI Admitting Unavailable BALL, DR SPEARS Consulting Unavailable BALL, DR SPEARS Primary Care Unavailable BALL, DR SPEARS Attending Unavailable BALL, DR SPEARS Admitting Unavailable BALL, DR SPEARS Consulting Unavailable BALL, DR SPEARS Primary Care Unavailable BALL, DR SPEARS Attending Unavailable BALL, DR SPEARS Admitting Unavailable ZIEBER, DR GUERLINE Isbell Consulting Unavailable BALL, DR SPEARS Consulting Unavailable BALL, DR SPEARS Primary Care Unavailable BALL, DR SPEARS Attending Unavailable BALL, DR SPEARS Admitting Unavailable Schuyler Barlow DO Primary Care Provider Jake Mireles Unavailable Schuyler Barlow Unavailable DO Schuyler Barlow Primary Care Provider MD Jake Mireles Attending Provider Daija Cain Unavailable DO Schuyler Barlow Primary Care Provider DONATO Cain Attending Provider Jake Mireles Admitting Unavailable Jake Mireles Attending Unavailable Yen, Schuyler Primary Care Unavailable Daija Cain Admitting Unavailable Daija Cain Attending Unavailable Yen, Schuyler Primary Care Unavailable Unavailable Primary Care Provider UnavailSchuyler Lauren DO Primary Care Provider Schuyler Barlow MD Primary Care Provider KYLEE SMITH Attending Unavailable BALL, SCHUYLER Hackett Referring Unavailable DIDION, KYLEE Marie Attending Unavailable [...] Unavailab le DIDION, KYLEE Marie Attending Unavailable PETITTIGUNNER Attending Unavailable ZAHLZEUS DOSSHAN D Attending Unavailable FERNANDO HANNA Attending Unavailable SCHUYLER BARLOW Primary Care Unavailable SCHUYLER BARLOW Primary Care Unavailable FERNANDO HANNA Attending Unavailable SCHUYLER BARLOW Primary Care Unavailable SCHUYLER BARLOW Primary Care Unavailable Allergies Allergy Classification Reported Allergen(s) Allergy Type Date of Onset Reaction(s) Facility (7 sources) Bee Venom Protein (Honey Bee); Translations: [BEE VENOM PROTEIN (HONEY BEE)] Drug Allergy 4 Unknown [facility] (1 source) bee venom Drug allergy (disorder) 4 [facility] (2 sources) patient allergy list reviewed by nurse or physicia Propensity to adverse reactions 4 Comment:Done [facility] Other (16 sources) Bee Sting Drug allergy swelling [facility] Other (7 sources) Honey bee venom Allergy to substance 4 Unknown [facility] Medications Current Medications Medication Drug Class(es) Dates Sig (Normalized) Sig (Original) [id number] 60 actuat albuterol 0.09 mg/actuat metered dose [...] oral tablet (20 sources) Benzodiazepine Start: 2023 End: 03-29-2024 take 1 tablet by mouth twice daily as needed for anxiety Alprazolam 0.25 mg tablet Active 0.25 MG PO Twice daily as needed for anxiety 60 March 29, 2024 10:26pm Start: 08-18-2022 End: 2023 take 1 tablet by mouth once daily Alprazolam 0.25 mg tablet Discontinued 0.25 MG PO Daily August 17, 2022 11:00pm 2023 7:48am Start: 06-06-2022 take 1 tablet by loly [...] Active busPIRone hydrochloride 15 mg oral tablet (4 sources) Start: busPIRone (BUSPAR) 15 mg tablet TAKE 1 TABLET EVERY DAY FOR THE FIRST WEEK THEN INCREASE TO TWICE A DAY 04/27/2023 Active Comment on above: TAKE 1 TABLET EVERY DAY FOR THE FIRST WEEK THEN INCREASE TO TWICE A DAY cholecalciferol 0.025 mg oral capsule (8 sources) Vitamin D Start: take 1 capsule by mouth once daily Cholecalciferol (Vitamin D3) (Vitamin D3) 25 mcg (1,000 unit) Capsule Active 25 MCG PO Daily August 18, 2022 11:00pm citalopram 20 mg oral tablet (20 sources) Serotonin Reuptake Inhibitor Start: take 1 tablet by mouth once daily Citalopram 20 mg tablet Active 0 .ROUTE .COMPLEX April 22, 2024 9:09am TAKE 1 TABLET BY MOUTH EVERY DAY Start: 12-30-2023 End: 04-22-2024 take 1 tablet by mouth once daily Citalopram (Celexa) 20 mg tablet Discontinued 20 MG PO Daily December 29, 2023 11:00pm April 22, 2024 9:09am Start: 08-18-2022 End: 09-05-2023 take 1 tablet by mouth once daily Citalopram 40 mg tablet Discontinued 40 MG PO Daily August 17, 2022 11:00pm September 05, 2023 9:09am take 2 tablets by mo uth once daily citalopram (CELEXA) 20 mg tablet Take 40 mg by mouth once daily. Active citalopram (Alisha XA) 20 MG tablet Take by mouth. 0 Active take 1 tablet by loly th once daily CeleXA 30 mg 1 tablet Orally Once a day Active Citalopram [place] bromide Active take 1 tablet by loly th once daily Citalopram Hydrobromide (CELEXA PO) Celexa; take 1 tablet by oral route every day. 0 Active Comment on above: Take 40 mg by mouth once daily. docusate sodium 50 mg / sennosides, detention 8.6 mg oral tablet (20 sources) take 1 tablet by mouth every twenty-four hours Senokot S 8.6-50 MG 1 tablet in the evening as needed Orally Once a day Active fexofenadine hydrochloride 60 mg oral tablet (14 sources) Histamine-1 Receptor Antagonist Start: 3 take 1 tablet by mouth once daily Fexofenadine (Shakira Allergy) 60 mg Tablet Active 60 MG PO Daily August 18, 2022 11:00pm take 1 tablet by mouth once arsalan [...] Active Multivitamin (Hair,Nails And Skin Vitamin) Tablet (8 sources) Start: 023 take 1 tablet by mouth once daily Multivitamin (Hair,Nails And Skin Vitamin) Tablet Active 1 TAB PO Daily August 18, 2022 11:00pm Start: 08-19-2022 take 1 tablet by loly th once daily Multivitamin (Hair,Nails And Skin Vitamin) Tablet Active 1 TAB PO Daily August 19, 2022 12:00am nadolol 40 mg oral tablet (20 sources) beta-Adrenergic Mae Start: 12-11-2023 take 1 tablet by mouth twice daily Nadolol 40 mg tablet Active 0 .ROUTE .COMPLEX 180 December 11, 2023 7:01pm TAKE 1 TABLET BY MOUTH TWICE A DAY Start: 06-17-2023 End: 12-11-2023 take 1 tablet by mouth twice daily Nadolol (Corgard) 40 mg tablet Discontinued 40 MG PO Twice daily 180 90 June 17, 2023 12:09pm December 11, 2023 7:02pm Start: 08-18-2022 End: 06-17-2023 take 1 tablet by mouth once daily Nadolol (Corgard) 40 mg Tablet Discontinued 40 MG PO Daily August 18, 2022 11:00pm June 17, 2023 8:50am take 2 tablets by mo [facility] once daily nadolol (CORGARD) 40 mg tablet Take 80 mg by mouth once daily. Active take 1 tablet by loly th in the morning nadolol (Corgard) 20 MG tablet Take 20 mg by mouth in the morning and 20 mg before bedtime. Active Nadolol 40 mg TA KE 1 TABLET TWICE A DAY Active Nadolol Active take 1 tablet by loly th once daily nadolol (CORGARD) 80 MG Tab take 80 mg by mouth daily. 0 Active Comment on above: Take 80 mg by mouth once daily. omeprazole 40 mg delayed release oral capsule (8 sources) Proton Pump Inhibitor Omeprazole 40 mg capsule Indications: Chronic lymphocytic leukemia (HCC) Take 40 mg by mouth. Active Comment on above: Take 40 mg by mouth. predniSONE 20 mg oral tablet (12 sources) Start: 05-02-2024 Prednisone 20 mg tablet Active 20 MG PO As Directed 01 25May 02, 2024 12:00am 1 tab bid w/ food x 4 days, then qd w/ food x 3 days Start: 02-28-2023 take 1 tablet by loly th twice daily predniSONE 20 MG 1 tablet [...] Orally Once a day Active triamcinolone acetonide 0.001 mg/mg topical ointment (20 sources) Corticosteroid Start: 05-02-2024 Triamcinolone Acetonide 0.1 % ointment Active 1 APPLIC TOPICAL Twice daily 45 May 02, 2024 12:00am Triamcinolone Ac etonide 0.1 % 1 application Externally Two times a Week Active Triamcinolone Ac etonide 0.1 % 1 application Externally Two times a Week Active Vitamin E (7 sources) Start: 08-19-2022 take 45 mg by mouth once daily Vitamin E Active 45 MG PO Daily August 19, 2022 12:00am Vitamin E 400 unit Tablet (1 source) Start: 08-19-2022 Vitamin E 400 unit Tablet Active 45 MG PO Daily August 18, 2022 11:00pm Completed/Discontinued Medications Medication Drug Class(es) Dates Sig [...] EVERY DAY gabapentin 100 mg oral capsule (6 sources) Anti-epileptic Agent Start: 4 End: 4 take 1 capsule by mouth once daily at bedtime as needed Gabapentin 100 mg capsule Discontinued 100 MG PO Daily at bedtime as needed for RLS June 19, 2023 11:00pm November 25, 2023 9:48am methylPREDNISolone 4 mg oral tablet (20 sources) [...] Pump Inhibitor Start: 3 End: 4 take 1 tablet by mouth once daily Pantoprazole 40 mg tablet,delayed release (DR/EC) Discontinued 40 MG PO Daily June 17, 2023 12:09pm October 19, 2023 8:49am Start: 10-25-2018 End: 05-11-[address] (PROTONIX) 2 0 mg tablet Pantoprazole Sod ium Active sertraline 50 mg oral tablet (17 sources) Serotonin Reuptake Inhibitor Start: 11-25-2023 End: 12-30-2023 take 1 tablet by mouth once daily Sertraline (Zoloft) 50 mg tablet Discontinued 50 MG PO Daily November 24, 2023 11:00pm December 30, 2023 11:41am Start: 11-02-2023 End: 03-09-2024 take 1.5 tablets by mouth once daily sertraline (Zoloft) 50 MG tablet Indications: LEO (generalized anxiety disorder) (CMS/HCC) Take 1.5 tablets (75 mg) by mouth Daily 45 tablet 2 11/02/2023 03/09/2024 Discontinued Start: 09-05-2023 End: 12-02-2023 sertraline (ZOLOFT) 50 mg ta blet Take 75 mg by mouth once daily. 09/05/2023 Active Start: 09-05-2023 End: 10-19-2023 take 1 tablet by mouth once daily Sertraline (Zoloft) 50 mg tablet Discontinued 50 MG PO Daily September 04, 2023 11:00pm October 19, 2023 12:15pm terconazole 8 mg/ml vaginal cream (3 sources) [...] venlafaxine 37.5 mg extended release oral capsule (3 sources) Serotonin and Norepinephrine Reuptake Inhibitor Start: 10-19-2023 End: 11-25-2023 take 1 capsule by mouth once daily in the morning Venlafaxine 37.5 mg capsule,extended release 24hr Discontinued 37.5 MG PO Every morning 14 October 18, 2023 11:00pm November 25, 2023 9:47am Problems Active Problems Problem Classification Problem Date Documented Date Episodic/Chronic Acute and chronic tonsillitis (7 sources) Cryptic tonsil; Translations: [Other chronic diseases of tonsils and adenoids] 06-20-2023 Chronic Acute bronchitis (4 sources) Acute bronchitis; Translations: [Acute bronchitis due to other specified organisms] Onset: 10-05-19 Episodic Allergic reactions (6 sources) Unspecified contact dermatitis, unspecified cause; Translations: [Allergy to bee venom] Onset: 11-12-19 Episodic Anxiety disorders (20 sources) Generalized anxiety disorder; Translations: [Generalized anxiety disorder] Onset: 09-21-19 Chronic Cardiac dysrhythmias (2 sources) Supraventricular tachycardia; Translations: [Supraventricular tachycardia] Onset: 01-09-20 Chronic Cardiac dysrhythmias (20 sources) Intermittent palpitations; Translations: [Palpitations] Episodic Cataract (10 sources) Age-related nuclear cataract, right eye; Translations: [Age-related nuclear cataract, left eye] Onset: 03-26-19 Chronic Chronic obstructive pulmonary disease and bronchiectasis (20 sources) Chronic obstructive pulmonary disease with acute lower respiratory infection; Translations: [Chronic obstructive pulmonary disease with (acute) lower respiratory infection] Onset: 02-03-20 16 Chronic Diseases of mouth; excluding dental (20 sources) Other lesions of oral mucosa; Translations: [Hypertrophy of tongue papillae] Onset: 10-17-19 19 Episodic Disorders of teeth and jaw (20 sources) Temporomandibular joint disorder; Translations: [Unspecified temporomandibular joint disorder, unspecified side] Episodic E Codes: Fall (1 source) Fall on same level from slipping, tripping and stumbling with subsequent striking against unspecified object, initial encounter; Translations: [FALL SAME LVL SLIP STRK UNS OBJ INT] Onset: 02-11-20 Episodic Esophageal disorders (11 sources) Gastroesophageal reflux disease; Translations: [Gastro-esophageal reflux disease without esophagitis] 09-03-2023 Chronic Esophageal disorders (2 sources) Esophageal disorders; Translations: [Gastro-esophageal reflux disease with esophagitis, without bleeding] Hemorrhoids (20 sources) Hemorrhoids; Translations: [Unspecified hemorrhoids] Onset: 04-13-19 Resolved : 04-13-19 Episodic Immunizations and screening for infectious disease (5 sources) Encounter for immunization; Translations: [Contact with and (suspected) exposure to other viral communicable diseases] Onset: 03-18-20 Resolved : 06-16-19 Episodic Inflammation; infection of eye (except that caused by tuberculosis or sexually transmitteddisease) (2 sources) Keratoconjunctivitis sicca; Translations: [Keratoconjunctivitis sicca, not specified as Sjogren's, bilateral] Onset: 03-09-2003-09-2024 Chronic Inflammation; infection of eye (except that caused by tuberculosis or sexually transmitteddisease) (2 sources) Blepharitis of upper and lower eyelids of bilateral eyes; Translations: [Unspecified blepharitis right eye, upper and lower eyelids] Onset: 03-09-2003-09-2024 Episodic Intracranial injury (20 sources) Concussion with no loss of consciousness; Translations: [Concussion without loss of consciousness, initial encounter] Episodic Leukemias (20 sources) Chronic lymphoid leukemia, disease; Translations: [Chronic lymphocytic leukemia of B-cell type not having achieved remission] Onset: 08-21-19 15 Chronic Miscellaneous mental health disorders (2 sources) Insomnia disorder related to another mental disorder; Translations: [Insomnia due to mental disorder] Onset: 11-05-19 18 Chronic Mood disorders (20 sources) Mild recurrent major depression; Translations: [Major depressive disorder, recurrent, mild] Onset: 08-25-19 17 Chronic Mycoses (20 sources) Tinea corporis; Translations: [Tinea corporis] Resolved : 06-16-19 Episodic Nutritional deficiencies (2 sources) Vitamin D deficiency; Translations: [Vitamin D deficiency, unspecified] Onset: 08-16-19 15 Chronic Other aftercare (1 source) 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; Translations: [OTH S[employer] LIVING CURRENT DRUG THERAPY] Onset: 02-11-20 Episodic Other and ill-defined heart disease (7 sources) Cardiomegaly; Translations: [Cardiomegaly] Chronic Other and ill-defined heart disease (2 sources) Cardiomegaly Chronic Other and unspecified benign neoplasm (20 sources) History of polyp of colon; Translations: [Personal history of colonic polyps] Episodic Other and unspecified benign neoplasm (2 sources) Personal history of colonic polyps Onset: 04-13-19 Resolved : 04-13-19 Episodic Other and unspecified benign neoplasm (20 [...] D/O BONE DEN STRUCT RT THIGH] Onset: 08-15-19 Episodic Other bone disease and musculoskeletal deformities (20 sources) Other specified disorders of bone density and structure, left thigh; Translations: [OTH D/O BONE DEN STRUCT LT THIGH] Onset: 08-15-19 Episodic Other circulatory disease (3 sources) Raynaud's phenomenon; Translations: [Raynaud's syndrome without gangrene] 11-25-2023 Chronic Other circulatory disease (1 source) Raynaud's syndrome without gangrene; Translations: [Raynaud's syndrome] 11-25-2023 Chronic Other connective tissue disease (1 source) Pain in right foot Episodic Other ear and sense organ disorders (2 sources) Otitis externa of left ear; Translations: [Unspecified otitis externa, left ear] Onset: 08-15-19 Chronic Other gastrointestinal disorders (20 sources) Chronic idiopathic constipation; Translations: [Chronic idiopathic constipation] Chronic Other gastrointestinal disorders (2 sources) Chronic idiopathic constipation Onset: 04-13-19 Resolved : 04-13-19 Chronic Other gastrointestinal disorders (20 sources) Constipation - functional; Translations: [Other constipation] Episodic Other gastrointestinal disorders (20 sources) Melanosis coli; Translations: [Other specified diseases of intestine] Episodic Other gastrointestinal disorders (4 sources) Constipation; Translations: [Constipation, unspecified] 10-19-2023 Episodic Other gastrointestinal disorders (3 sources) Constipation, unspecified; Translations: [Constipation, unspecified] 10-19-2023 Episodic Other hereditary and degenerative nervous system conditions (8 sources) Restless legs; Translations: [Restless legs syndrome] [...] Translations: [UNSPECIFIED INJURY HEAD INITIAL ENC] Onset: 02-08-20 Episodic Other injuries and conditions due to external causes (2 sources) History of fall; Translations: [History of falling] Episodic Other lower respiratory disease (5 sources) Solitary pulmonary nodule; Translations: [SOLITARY PULMONARY NODULE] Onset: 09-24-19 Episodic Other lower respiratory disease (20 sources) [...] Translations: [Intrinsic aging of facial skin] Onset: 08-25-19 18 08-24-2017 Episodic Other skin disorders (4 sources) [...] radiculopathy, cervical region; Translations: [Cervical spondylosis] Onset: 07-21-19 17 Chronic Spondylosis; intervertebral disc disorders; other back problems (20 sources) Cervicalgia; Translations: [Muscle spasm of back] Onset: 03-16-20 18 Episodic Sprains and strains (20 sources) Strain of unspecified muscle and tendon at ankle and foot level, right foot, initial encounter; Translations: [Sprain of jaw] Resolved : 06-16-19 22 Episodic Substance-related disorders (20 sources) Tobacco dependence in remission; Translations: [Nicotine dependence, cigarettes, in remission] Onset: 02-03-20 16 Resolved : 03-03-20 20 Chronic Comment on above: LDCT: no suspicious nodules - 10/2023 Superficial injury; contusion (20 sources) Contusion of unspecified part of head, initial encounter; Translations: [Contusion of lower back and pelvis, initial encounter] Onset: 09-24-19 17 Episodic Unclassified (1 source) Cosmetic / 473() Onset: 01-26-20 17 Unclassified (3 sources) CONTACT W/AND (SUSP) EXPOS COVID-19; Translations: [CONTACT W/AND (SUSP) EXPOS COVID-19] Onset: 02-29-20 21 Unclassified (2 sources) Other specified cough; Translations: [Other specified cough] Onset: 01-23-20 16 Unclassified (1 source) Pain in right foot; Translations: [Pain in right foot] Onset: 12-05-19 23 Unclassified (1 source) Encounter for screening for malignant neoplasm of colon; Translations: [Encounter for screening for malignant neoplasm of colon] Onset: 08-20-19 23 Viral infection (6 sources) COVID-19; Translations: [Disease caused by 2019-nCoV] Onset: 03-17-20 21 Past or Other Problems Problem Classification Problem [...] Test Name Value Interpretation Reference Range Facility CBC W Auto Differential pane l (Bld)on 05-14-2024 Basophils (Bld) [#/Vol] 0.00 10*3/uL Normal <0.11 [facility] Comment on above: Order Comment: Speci men Type: BLOOD SPECIMEN Ordering Facility: [facility] Address: [address] [place] [address] Performed By: #### 5 7021-8 #### [facility] CLIA [id number] [address] [place] [address] LAB CLIA [id number] [address] [place] [address] [place] Basophils/100 WBC (Bld) 0.0 % Normal [facility] Comment on above: Order Comment: Speci men Type: BLOOD SPECIMEN Ordering Facility: [facility] Address: [address] [place] [address] Performed By: #### 5 7021-8 #### [facility] CLIA [id number] [address] [place] [address] LAB CLIA [id number] [address] [place] [address] [place] Differential cell count method Nom (Bld) Manual Normal [facility] Comment on above: Order Comment: Speci men Type: BLOOD SPECIMEN Ordering Facility: [facility] Address: [address] [place] [address] Performed By: #### 5 7021-8 #### [facility] CLIA [id number] [address] [place] [address] LAB CLIA [id number] [address] [place] [address] [place] Eosinophils (Bld) [#/Vol] 0.30 10*3/uL Normal <0.46 [facility] Comment on above: Order Comment: Speci men Type: BLOOD SPECIMEN Ordering Facility: [facility] Address: [address] [place] [address] Performed By: #### 5 7021-8 #### [facility] CLIA [id number] [address] [place] [address] LAB CLIA [id number] [address] [place] [address] [place] Eosinophils/100 WBC (Bld) 1.0 % Normal [facility] Comment on above: Order Comment: Speci men Type: BLOOD SPECIMEN Ordering Facility: [facility] Address: [address] [place] [address] Performed By: #### 5 7021-8 #### [facility] CLIA [id number] [address] [place] [address] LAB CLIA [id number] [address] [place] [address] [place] Erythrocyte distribution width (RBC) [Ratio] 13.5 % Normal 11.5-15.0 [facility] Comment on above: Order Comment: Speci men Type: BLOOD SPECIMEN Ordering Facility: [facility] Address: [address] [place] [address] Performed By: #### 5 7021-8 #### [facility] CLIA [id number] [address] [place] [address] LAB CLIA [id number] [address] [place] [address] [place] Hematocrit (Bld) [Volume fraction] 39.2 % Normal 36.0-46.0 [facility] Comment on above: Order Comment: Speci men Type: BLOOD SPECIMEN Ordering Facility: [facility] Address: [address] [place] [address] Performed By: #### 5 7021-8 #### [facility] CLIA [id number] [address] [place] [address] LAB CLIA [id number] [address] [place] [address] [place] Hemoglobin (Bld) [Mass/Vol] 13.1 g/dL Normal 11.5-15.5 [facility] Comment on above: Order Comment: Speci men Type: BLOOD SPECIMEN Ordering Facility: [facility] Address: [address] [place] [address] Performed By: #### 5 7021-8 #### [facility] CLIA [id number] [address] [place] [address] LAB CLIA [id number] [address] [place] [address] [place] Lymphocytes (Bld) [#/Vol] 23.74 10*3/uL High 1.00-4.00 [facility] Comment on above: Order Comment: Speci men Type: BLOOD SPECIMEN Ordering Facility: [facility] Address: [address] [place] [address] Performed By: #### 5 7021-8 #### [facility] CLIA [id number] [address] [place] [address] LAB CLIA [id number] [address] [place] [address] [place] Lymphocytes/100 WBC (Bld) 78.0 % Normal [facility] Comment on above: Order Comment: Speci men Type: BLOOD SPECIMEN Ordering Facility: [facility] Address: [address] [place] [address] Performed By: #### 5 7021-8 #### [facility] CLIA [id number] [address] [place] [address] LAB CLIA [id number] [address] [place] [address] [place] MCH (RBC) [Entitic mass] 31.8 pg Normal 26.0-34.0 [facility] Comment on above: Order Comment: Speci men Type: BLOOD SPECIMEN Ordering Facility: [facility] Address: [address] [place] [address] Performed By: #### 5 7021-8 #### [facility] CLIA [id number] [address] [place] [address] LAB CLIA [id number] [address] [place] [address] [place] MCHC (RBC) [Mass/Vol] 33.4 g/dL Normal 30.5-36.0 [facility] Comment on above: Order Comment: Speci men Type: BLOOD SPECIMEN Ordering Facility: [facility] Address: [address] [place] [address] Performed By: #### 5 7021-8 #### [facility] CLIA [id number] [address] [place] [address] LAB CLIA [id number] [address] [place] [address] [place] MCV (RBC) [Entitic vol] 95.1 fL Normal 80.0-100.0 [facility] Comment on above: Order Comment: Speci men Type: BLOOD SPECIMEN Ordering Facility: [facility] Address: [address] [place] [address] Performed By: #### 5 7021-8 #### [facility] CLIA [id number] [address] [place], [place] [id number] [facility] CLIA [id number] [address] [place], [place] [address] [place] Monocytes (Bld) [#/Vol] 0.91 10*3/uL High <0.87 [facility] Comment on above: Order Comment: Speci men Type: BLOOD SPECIMEN Ordering Facility: [facility] Address: [address] [place] [address] Performed By: #### 5 7021-8 #### [facility] CLIA [id number] [address] [place] [address] LAB CLIA [id number] [address] [place] [address] [place] Monocytes/100 WBC (Bld) 3.0 % Normal [facility] Comment on above: Order Comment: Speci men Type: BLOOD SPECIMEN Ordering Facility: [facility] Address: [address] [place] [address] Performed By: #### 5 7021-8 #### [facility] CLIA [id number] [address] [place] [address] LAB CLIA [id number] [address] [place] [address] [place] Neutrophils (Bld) [#/Vol] 5.48 10*3/uL Normal 1.45-7.50 [facility] Comment on above: Order Comment: Speci men Type: BLOOD SPECIMEN Ordering Facility: [facility] Address: [address] [place] [address] Performed By: #### 5 7021-8 #### [facility] CLIA [id number] [address] [place] [address] LAB CLIA [id number] [address] [place] [address] [place] Neutrophils/100 WBC (Bld) 18.0 % Normal [facility] Comment on above: Order Comment: Speci men Type: BLOOD SPECIMEN Ordering Facility: [facility] Address: [address] [place] [address] Performed By: #### 5 7021-8 #### [facility] CLIA [id number] [address] [place] [address] LAB CLIA [id number] [address] [place] [address] [place] Nucleated RBC (Bld) [#/Vol] 10*3/uL Normal <0.01 [facility] Comment on above: Order Comment: Speci men Type: BLOOD SPECIMEN Ordering Facility: [facility] Address: [address] [place] [address] Performed By: #### 5 7021-8 #### [facility] CLIA [id number] [address] [place] [address] LAB CLIA [id number] [address] [place] [address] [place] Nucleated RBC/100 WBC (Bld) [Ratio] 0.0 /100 WBC Normal [facility] Comment on above: Order Comment: Speci men Type: BLOOD SPECIMEN Ordering Facility: [facility] Address: [address] [place] [address] Performed By: #### 5 7021-8 #### [facility] CLIA [id number] [address] [place] [address] LAB CLIA [id number] [address] [place] [address] [place] Ovalocytes LM Ql (Bld) Few Normal [facility] Comment on above: Order Comment: Speci men Type: BLOOD SPECIMEN Ordering Facility: [facility] Address: [address] [place] [address] Performed By: #### 5 7021-8 #### [facility] CLIA [id number] [address] [place] [address] LAB CLIA [id number] [address] [id number] [address] [place] Platelet mean volume (Bld) [Entitic vol] 9.3 fL Normal 9.0-12.7 [facility] Comment on above: Order Comment: Speci men Type: BLOOD SPECIMEN Ordering Facility: [facility] Address: [address] [place] [address] Performed By: #### 5 7021-8 #### [facility] CLIA [id number] [address] [place] [address] LAB CLIA [id number] [address] [place] [address] [place] Platelets (Bld) [#/Vol] 180 10*3/uL Normal 150-400 [facility] Comment on above: Order Comment: Speci men Type: BLOOD SPECIMEN Ordering Facility: [facility] Address: [address] [place] [address] Performed By: #### 5 7021-8 #### [facility] CLIA [id number] [address] [place] [address] LAB CLIA [id number] [address] [place] [address] [place] Platelets Estimate (Bld) [#/Vol] Adequate Normal [facility] Comment on above: Order Comment: Speci men Type: BLOOD SPECIMEN Ordering Facility: [facility] Address: [address] [place] [address] Performed By: #### 5 7021-8 #### [facility] CLIA [id number] [address] [place] [address] LAB CLIA [id number] [address] [place] [address] [place] RBC (Bld) [#/Vol] 4.12 10*6/uL Normal 3.90-5.20 [facility] Comment on above: Order Comment: Speci men Type: BLOOD SPECIMEN Ordering Facility: [facility] Address: [address] [place] [address] Performed By: #### 5 7021-8 #### [facility] CLIA [id number] [address] [place] [address] LAB CLIA [id number] [address] [place] [address] [place] RED CELL MORPH Reviewed: see result s of individual morphologies Normal [facility] Comment on above: Order Comment: Speci men Type: BLOOD SPECIMEN Ordering Facility: [facility] Address: [address] [place] [address] Performed By: #### 5 7021-8 #### [facility] CLIA [id number] [address] [place] [address] LAB CLIA [id number] [address] [place] [address] [place] WBC (Bld) [#/Vol] 30.44 10*3/uL High 3.70-11.00 [facility] Comment on above: Order Comment: Speci men Type: BLOOD SPECIMEN Ordering Facility: [facility] Address: [address] [place] [address] Performed By: #### 5 7021-8 #### [facility] CLIA [id number] [address] [place] [address] LAB CLIA [id number] [address] [place] [address] [place] CNOVSPon 05-14-2024 CNOVSP Visit (SP) Office ([facility]) NADEEN OQUENDO ([id number]) 1950 F Date Time Provider Department 05/14/24 10:40 AM FERNANDO HANNA During your visit today, we recorded the following information about you: Temperature Pulse Respiration Blood pressure 97.3 degrees 60/minute 16/minute 140/74 Weight Height 62.7 kg 1.753 m Fernando Hanna MD 05/14/2024 8:13 PM Signed NAME: Nadeen Oquendo CLINIC NO.: [id number] DATE OF SERVICE: May 14, 2024 (Jaime) Some elements in this clinic note that are critical to medical decision making have been carefully reviewed and included from a prior clinic note dated: November 07, 2023 (Jaime) Referring Provider: Dr. Schuyler Barlow [...] - Diagnosed with CLL Updated Visit, May 14, 2024: Ashley returns and continues to do well. Following with Dr. Barlow for pulmonary nodules. Labs stable with no indications to consider treatment. Updated Visit, November 07, 2023: Ashley returns [...] and labs are stable. 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 [...] in the next week. 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 [...] PERFORMANCE STATUS: 0 PHYSICAL EXAMINATION: Vitals: BP 140/74 Pulse 60 Temp (Src) 97.3 (Temporal) Resp 16 Ht 5' 9.016 (1.75m) Wt 138 lb 3.7 oz (62.7kg) SpO2 100% BMI 20.40 kg/(m2). Body surface area is (more content not included)... Normal [facility] Comprehensive metabolic 2000 panelon 05-14-2024 Albumin [Mass/Vol] 4.4 g/dL Normal 3.9-4.9 [facility] Comment on above: Order Comment: Speci men Type: BLOOD SPECIMEN Ordering Facility: [facility] Address: [address] [place] [address] Performed By: #### 2 532-0, 47021-3, 3083-1 #### [facility] CLIA [id number] [address] [place] [address] [place] [address] [place] ALP [Catalytic activity/Vol] 84 U/L Normal 34-123 [facility] Comment on above: Order Comment: Speci men Type: BLOOD SPECIMEN Ordering Facility: [facility] Address: [address] [place] [address] Performed By: #### 2 532-0, 59721-2, 308- #### [facility] CLIA [id number] [address] [place], [place] [address] [place] ALT [Catalytic activity/Vol] 18 U/L Normal 7-38 [facility] Comment on above: Order Comment: Speci men Type: BLOOD SPECIMEN Ordering Facility: [facility] Address: [address] [place] [address] Performed By: #### 2 532-0, 30503-4, 3083- #### [facility] CLIA [id number] [address] [place], [place] [address] [place] Anion gap [Moles/Vol] 9 mmol/L Normal 8-15 [facility] Comment on above: Order Comment: Speci men Type: BLOOD SPECIMEN Ordering Facility: [facility] Address: [address] [place] [address] Performed By: #### 2 532-0, , 3083-03 #### [facility] CLIA [id number] [address] [place] [address] [place] AST [Catalytic activity/Vol] 22 U/L Normal 13-35 [facility] Comment on above: Order Comment: Speci men Type: BLOOD SPECIMEN Ordering Facility: [facility] Address: [address] [place] [address] Performed By: #### 2 532-0, 48975-1, 3083-03 #### [facility] CLIA [id number] [address] [place], [place] [address] [place] Bilirubin [Mass/Vol] 0.4 mg/dL Normal 0.2-1.3 [facility] Comment on above: Order Comment: Speci men Type: BLOOD SPECIMEN Ordering Facility: [facility] Address: [address] [place] [address] Performed By: #### 2 532-0, 27109-5, 3083- #### [facility] CLIA [id number] [address] [place] [address] [place] Calcium [Mass/Vol] 9.1 mg/dL Normal 8.5-10.2 [facility] Comment on above: Order Comment: Speci men Type: BLOOD SPECIMEN Ordering Facility: [facility] Address: [address] [place] [address] Performed By: #### 2 532-0, 18281-4, 3084-1 #### [facility] CLIA [id number] [address] [place] [address] [place] Chloride [Moles/Vol] 100 mmol/L Normal 98-107 [facility] Comment on above: Order Comment: Speci men Type: BLOOD SPECIMEN Ordering Facility: [facility] Address: [address] [place] [address] Performed By: #### 2 532-0, 81002-0, 3083-1 #### [facility] CLIA [id number] [address] [place] [address] [place] CO2 [Moles/Vol] 24 mmol/L Normal 22-30 [facility] Comment on above: Order Comment: Speci men Type: BLOOD SPECIMEN Ordering Facility: [facility] Address: [address] [place] [address] Performed By: #### 2 532-0, 32359-1, 4-1 #### [facility] CLIA [id number] [address] [place] [address] [place] Creatinine [Mass/Vol] 0.74 mg/dL Normal 0.58-0.96 [facility] Comment on above: Order Comment: Speci men Type: BLOOD SPECIMEN Ordering Facility: [facility] Address: [address] [place] [address] Performed By: #### 2 532-0, 78567-0, 3084-1 #### [facility] CLIA [id number] [address] [place] [address] [place] Creatinine and Glomerular filtration rate.predicted panel (S/P/Bld) 84 mL/min/1.73m??? Normal >=60 [facility] Comment on above: Order Comment: Nando mike Type: BLOOD SPECIMEN Ordering Facility: [facility] Address: [address] [place] [address] Result Comment: Juliann mated Glomerular Filtration Rate [...] actual GFR. Performed By: #### 2 532-0, 34119-3, 308-1 #### [facility] CLIA [id number] [address] [place] [address] [place] Glucose [Mass/Vol] 85 mg/dL Normal 74-99 [facility] Comment on above: Order Comment: Nando mike Type: BLOOD SPECIMEN Ordering Facility: [facility] Address: [address] [place] [address] Result Comment: The [place] [employer] (ADA) provides guidance for cutoff [...] Standards of Medical Care in Diabetes 2016, [place] [employer]. Diabetes Care. 2016.39(Suppl 1). Performed By: #### 2 532-0, 02867-4, 308-1 #### [facility] CLIA [id number] [address] [place] [address] [place] Potassium [Moles/Vol] 4.6 mmol/L Normal 3.7-5.1 [facility] Comment on above: Order Comment: Speci men Type: BLOOD SPECIMEN Ordering Facility: [facility] Address: [address] [place] [address] Performed By: #### 2 532-0, 14470-9, 3083-03 #### [facility] CLIA [id number] [address] [place] [address] [place] Protein [Mass/Vol] 6.3 g/dL Normal 6.3-8.0 [facility] Comment on above: Order Comment: Speci men Type: BLOOD SPECIMEN Ordering Facility: [facility] Address: [address] [place] [address] Performed By: #### 2 532-0, 65301-0, 3083-03 #### [facility] CLIA [id number] [address] [place] [address] [place] Sodium [Moles/Vol] 133 mmol/L Low 136-144 [facility] Comment on above: Order Comment: Speci men Type: BLOOD SPECIMEN Ordering Facility: [facility] Address: [address] [place] [address] Performed By: #### 2 532-0, 89884-7, 3083-03 #### [facility] CLIA [id number] [address] [place] [address] [place] Urea nitrogen [Mass/Vol] 14 mg/dL Normal 7-21 [facility] Comment on above: Order Comment: Speci men Type: BLOOD SPECIMEN Ordering Facility: [facility] Address: [address] [place] [address] Performed By: #### 2 532-0, 60162-6, 3083-03 #### [facility] CLIA [id number] [address] [place], [place] [address] [place] LDH SerPl-cCncon 05-14-2024 LDH [Catalytic activity/Vol] 206 U/L Normal 135-214 [facility] Comment on above: Order Comment: Speci men Type: BLOOD SPECIMEN Ordering Facility: [facility] Address: [address] [place] [address] Performed By: #### 2 532-0, 27547-1, 3084-1 #### [facility] CLIA [id number] [address] [place] [address] [place] Urate SerPl-mCncon Urate [Mass/Vol] 3.5 mg/dL Normal 2.5-6.[address] [facility] Comment on above: Order Comment: Speci men Type: BLOOD SPECIMEN Ordering Facility: [facility] Address: [address] [place] [address] Performed By: #### 2 532-0, 89885-6, 3083-1 #### [facility] CLIA [id number] [address] [place] [address] [place] Basophils Auto (Bld) [#/Vol] on 11-07-2023 Basophils (Bld) [#/Vol] 0.24 10*3/uL High <0.11 [facility] Basophils/100 WBC Auto (Bld) on 11-07-2023 Basophils/100 WBC (Bld) 1.0 % [facility] Blood manual differential co mment interpretation narrativeon 11-07-2023 Manual differential comment Charan (Bld) [Interp] Manual [facility] CBC W Auto Differential pane l (Bld)on 11-07-2023 Basophils (Bld) [#/Vol] 0.24 10*3/uL High <0.11 [facility] Comment on above: Order Comment: Speci men Type: BLOOD SPECIMEN Ordering Facility: [facility] Address: [address] [place] [address] Performed By: #### 5 7021-8 #### [facility] CLIA [id number] [address] [place] [address] [facility] CLIA [id number] [address] [place] [address] [place] Basophils/100 WBC (Bld) 1.0 % Normal [facility] Comment on above: Order Comment: Speci men Type: BLOOD SPECIMEN Ordering Facility: [facility] Address: [address] [place] [address] Performed By: #### 5 7021-8 #### [facility] CLIA [id number] [address] [place] [address] LAB CLIA [id number] [address] [place] [address] [place] Differential cell count method Nom (Bld) Manual Normal [facility] Comment on above: Order Comment: Speci men Type: BLOOD SPECIMEN Ordering Facility: [facility] Address: [address] [place] [address] Performed By: #### 5 7021-8 #### [facility] CLIA [id number] [address] [place] [address] LAB CLIA [id number] [address] [place] [address] [place] Eosinophils (Bld) [#/Vol] 0.00 10*3/uL Normal <0.46 [facility] Comment on above: Order Comment: Speci men Type: BLOOD SPECIMEN Ordering Facility: [facility] Address: [address] [place] [address] Performed By: #### 5 7021-8 #### [facility] CLIA [id number] [address] [place] [address] LAB CLIA [id number] [address] [place] [address] [place] Eosinophils/100 WBC (Bld) 0.0 % Normal [facility] Comment on above: Order Comment: Speci men Type: BLOOD SPECIMEN Ordering Facility: [facility] Address: [address] [place] [address] Performed By: #### 5 7021-8 #### [facility] CLIA [id number] [address] [place] [address] LAB CLIA [id number] [address] [place] [address] [place] Erythrocyte distribution width (RBC) [Ratio] 13.2 % Normal 11.5-15.0 [facility] Comment on above: Order Comment: Speci men Type: BLOOD SPECIMEN Ordering Facility: [facility] Address: [address] [place] [address] Performed By: #### 5 7021-8 #### [facility] CLIA [id number] [address] [place] [address] LAB CLIA [id number] [address] [place] [address] [place] Hematocrit (Bld) [Volume fraction] 41.4 % Normal 36.0-46.0 [facility] Comment on above: Order Comment: Speci men Type: BLOOD SPECIMEN Ordering Facility: [facility] Address: [address] [place] [address] Performed By: #### 5 7021-8 #### [facility] CLIA [id number] [address] [place] [address] LAB CLIA [id number] [address] [place] [address] [place] Hemoglobin (Bld) [Mass/Vol] 14.5 g/dL Normal 11.5-15.5 [facility] Comment on above: Order Comment: Speci men Type: BLOOD SPECIMEN Ordering Facility: [facility] Address: [address] [place] [address] Performed By: #### 5 7021-8 #### [facility] CLIA [id number] [address] [place] [address] LAB CLIA [id number] [address] [place] [address] [place] Lymphocytes (Bld) [#/Vol] 19.06 10*3/uL High 1.00-4.00 [facility] Comment on above: Order Comment: Speci men Type: BLOOD SPECIMEN Ordering Facility: [facility] Address: [address] [place] [address] Performed By: #### 5 7021-8 #### [facility] CLIA [id number] [address] [place] [address] LAB CLIA [id number] [address] [place] [address] [place] Lymphocytes/100 WBC (Bld) 78.0 % Normal [facility] Comment on above: Order Comment: Speci men Type: BLOOD SPECIMEN Ordering Facility: [facility] Address: [address] [place] [address] Performed By: #### 5 7021-8 #### [facility] CLIA [id number] [address] [place] [address] LAB CLIA [id number] [address] [place] [address] [place] MCH (RBC) [Entitic mass] 32.3 pg Normal 26.0-34.0 [facility] Comment on above: Order Comment: Speci men Type: BLOOD SPECIMEN Ordering Facility: [facility] Address: [address] [place] [address] Performed By: #### 5 7021-8 #### [facility] CLIA [id number] [address] [place] [address] LAB CLIA [id number] [address] [place] [address] [place] MCHC (RBC) [Mass/Vol] 35.0 g/dL Normal 30.5-36.0 [facility] Comment on above: Order Comment: Speci men Type: BLOOD SPECIMEN Ordering Facility: [facility] Address: [address] [place] [address] Performed By: #### 5 7021-8 #### [facility] CLIA [id number] [address] [place] [address] LAB CLIA [id number] [address] [place] [address] [place] MCV (RBC) [Entitic vol] 92.2 fL Normal 80.0-100.0 [facility] Comment on above: Order Comment: Speci men Type: BLOOD SPECIMEN Ordering Facility: [facility] Address: [address] [place] [address] Performed By: #### 5 7021-8 #### [facility] CLIA [id number] [address] [place] [address] LAB CLIA [id number] [address] [place] [address] [place] Monocytes (Bld) [#/Vol] 0.49 10*3/uL Normal <0.87 [facility] Comment on above: Order Comment: Speci men Type: BLOOD SPECIMEN Ordering Facility: [facility] Address: [address] [place] [address] Performed By: #### 5 7021-8 #### [facility] CLIA [id number] [address] [place] [address] LAB CLIA [id number] [address] [place] [address] [place] Monocytes/100 WBC (Bld) 2.0 % Normal [facility] Comment on above: Order Comment: Speci men Type: BLOOD SPECIMEN Ordering Facility: [facility] Address: [address] [place] [address] Performed By: #### 5 7021-8 #### [facility] CLIA [id number] [address] [place] [address] LAB CLIA [id number] [address] [place] [address] [place] Neutrophils (Bld) [#/Vol] 4.64 10*3/uL Normal 1.45-7.50 [facility] Comment on above: Order Comment: Speci men Type: BLOOD SPECIMEN Ordering Facility: [facility] Address: [address] [place] [address] Performed By: #### 5 7021-8 #### [facility] CLIA [id number] [address] [place] [address] LAB CLIA [id number] [address] [place] [address] [place] Neutrophils/100 WBC (Bld) 19.0 % Normal [facility] Comment on above: Order Comment: Speci men Type: BLOOD SPECIMEN Ordering Facility: [facility] Address: [address] [place] [address] Performed By: #### 5 7021-8 #### [facility] CLIA [id number] [address] [place] [address] LAB CLIA [id number] [address] [place] [address] [place] Nucleated RBC (Bld) [#/Vol] 0.24 10*3/uL High <0.01 [facility] Comment on above: Order Comment: Speci men Type: BLOOD SPECIMEN Ordering Facility: [facility] Address: [address] [place] [address] Performed By: #### 5 7021-8 #### [facility] CLIA [id number] [address] [place] [address] LAB CLIA [id number] [address] [place] [address] [place] Nucleated RBC/100 WBC (Bld) [Ratio] 1.0 /100 WBC Normal [facility] Comment on above: Order Comment: Speci men Type: BLOOD SPECIMEN Ordering Facility: [facility] Address: [address] [place] [address] Performed By: #### 5 7021-8 #### [facility] CLIA [id number] [address] [place] [address] LAB CLIA [id number] [address] [place] [address] [place] Ovalocytes LM Ql (Bld) Few Normal [facility] Comment on above: Order Comment: Speci men Type: BLOOD SPECIMEN Ordering Facility: [facility] Address: [address] [place] [address] Performed By: #### 5 7021-8 #### [facility] CLIA [id number] [address] [place] [address] LAB CLIA [id number] [address] [place] [address] [place] Platelet mean volume (Bld) [Entitic vol] 9.7 fL Normal 9.0-12.7 [facility] Comment on above: Order Comment: Speci men Type: BLOOD SPECIMEN Ordering Facility: [facility] Address: [address] [place] [address] Performed By: #### 5 7021-8 #### [facility] CLIA [id number] [address] [place] [address] LAB CLIA [id number] [address] [place] [address] [place] Platelets (Bld) [#/Vol] 227 10*3/uL Normal 150-400 [facility] Comment on above: Order Comment: Speci men Type: BLOOD SPECIMEN Ordering Facility: [facility] Address: [address] [place] [address] Result Comment: Resu lts checked and verified.No clot detected. Performed By: #### 5 7021-8 #### [facility] CLIA [id number] [address] [place] [address] LAB CLIA [id number] [address] [place] [address] [place] Platelets Estimate (Bld) [#/Vol] Adequate Normal [facility] Comment on above: Order Comment: Speci men Type: BLOOD SPECIMEN Ordering Facility: [facility] Address: [address] [place] [address] Performed By: #### 5 7021-8 #### [facility] CLIA [id number] [address] [place] [address] LAB CLIA [id number] [address] [place] [address] [place] RBC (Bld) [#/Vol] 4.49 10*6/uL Normal 3.90-5.20 [facility] Comment on above: Order Comment: Speci men Type: BLOOD SPECIMEN Ordering Facility: [facility] Address: [address] [place] [address] Performed By: #### 5 7021-8 #### [facility] CLIA [id number] [address] [place] [address] LAB CLIA [id number] [address] [place] [address] [place] RED CELL MORPH Reviewed: see result s of individual morphologies Normal [facility] Comment on above: Order Comment: Speci men Type: BLOOD SPECIMEN Ordering Facility: [facility] Address: [address] [place] [address] Performed By: #### 5 7021-8 #### [facility] CLIA [id number] [address] [place] [address] LAB CLIA [id number] [address] [place] [address] [place] WBC (Bld) [#/Vol] 24.44 10*3/uL High 3.70-11.00 [facility] Comment on above: Order Comment: Speci men Type: BLOOD SPECIMEN Ordering Facility: [facility] Address: [address] [place] [address] Result Comment: Resu lts checked and verified.No clot detected. Performed By: #### 5 7021-8 #### [facility] CLIA [id number] [address] [place] [address] LAB CLIA [id number] [address] [place] [address] [place] [facility] CNOVSPon 11-07-2023 CNOVSP Visit (SP) Office (HEMAS[place]) NADEEN OQUENDO ([id number]) 1950 F Date Time Provider Department 11/07/23 10:30 AM FERNANDO HANNA During your visit today, we recorded the following information about you: Temperature Pulse Respiration Blood pressure 97.1 degrees 64/minute 16/minute 127/75 Weight Height 61.8 kg 1.753 m Fernando Hanna MD 11/07/2023 6:52 PM Signed NAME: Nadeen Oquendo CLINIC NO.: [id number] DATE OF SERVICE: November 07, 2023 (Jaime) Some elements in this clinic note that are critical to medical decision making have been carefully reviewed and included from a prior clinic note dated: May 09, 2023 (Jaime) Referring Provider: Dr. Schuyler Barlow Additional Clinicians involved in Nadeen Stephen Oquendo's care: CC: CLL diagnosed 2014. ASSESSMENT: [...] and labs are stable. 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 [...] in the next week. 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 [...] no visi (more content not included)... Normal [facility] Comprehensive metabolic 2000 panelon 11-07-2023 Albumin [Mass/Vol] 4.7 g/dL Normal 3.9-4.9 [facility] Comment on above: Order Comment: Speci men Type: BLOOD SPECIMEN Ordering Facility: [facility] Address: [address] [place] [address] Performed By: #### 3 084-1, 2531-0, #### [facility] CLIA [id number] [address] [place] [address] ALP [Catalytic activity/Vol] 82 U/L Normal 34-123 [facility] Comment on above: Order Comment: Speci men Type: BLOOD SPECIMEN Ordering Facility: [facility] Address: [address] [place], [place] [address] Performed By: #### 3 084-1, 2531-0, #### [facility] CLIA [id number] [address] [place] [address]1 ALT [Catalytic activity/Vol] 15 U/L Normal 7-38 [facility] Comment on above: Order Comment: Speci men Type: BLOOD SPECIMEN Ordering Facility: [facility] Address: [address] [place] [address] Performed By: #### 3 084-1, 0, #### [facility] CLIA [id number] [address] [place] [address] Anion gap [Moles/Vol] 10 mmol/L Normal 8-15 [facility] Comment on above: Order Comment: Speci men Type: BLOOD SPECIMEN Ordering Facility: [facility] Address: [facility] [place] [address] Performed By: #### 3 084-1, 2531-0, #### [facility] CLIA [id number] [address] [place] [address] AST [Catalytic activity/Vol] 19 U/L Normal 13-35 [facility] Comment on above: Order Comment: Speci men Type: BLOOD SPECIMEN Ordering Facility: [facility] Address: [address] [place] [address] Performed By: #### 3 084-1, 2531-0, #### [facility] CLIA [id number] [address] [place] [address] Bilirubin [Mass/Vol] 0.4 mg/dL Normal 0.2-1.3 [facility] Comment on above: Order Comment: Speci men Type: BLOOD SPECIMEN Ordering Facility: [facility] Address: [address] [place], [place] [address] Performed By: #### 3 084-1, 2531-0, #### [facility] CLIA [id number] [address] [place] [address] Calcium [Mass/Vol] 9.5 mg/dL Normal 8.5-10.2 [facility] Comment on above: Order Comment: Speci men Type: BLOOD SPECIMEN Ordering Facility: [facility] Address: [address] [place] [address] Performed By: #### 3 084-1, 0, #### [facility] CLIA [id number] [address] [place] [address] Chloride [Moles/Vol] 102 mmol/L Normal 98-107 [facility] Comment on above: Order Comment: Speci men Type: BLOOD SPECIMEN Ordering Facility: [facility] Address: [address] [place] [address] Performed By: #### 3 084-1, 0, #### [facility] CLIA [id number] [address] [place] [address] CO2 [Moles/Vol] 23 mmol/L Normal 22-30 [facility] Comment on above: Order Comment: Speci men Type: BLOOD SPECIMEN Ordering Facility: [facility] Address: [address] [place] [address] Performed By: #### 3 084-1, 2531-0, #### [facility] CLIA [id number] [address] [place] [address] Creatinine [Mass/Vol] 0.80 mg/dL Normal 0.58-0.96 [facility] Comment on above: Order Comment: Nando mike Type: BLOOD SPECIMEN Ordering Facility: [facility] Address: [address] [place] [address] Performed By: #### 3 084-1, 2532-0, 94738-8 #### [facility] CLIA [id number] [address] [place] [address] Creatinine and Glomerular filtration rate.predicted panel (S/P/Bld) 77 mL/min/1.73m??? Normal >=60 [facility] Comment on above: Order Comment: Nando mike Type: BLOOD SPECIMEN Ordering Facility: [facility] Address: [address] [place] [address] Result Comment: Juliann mated Glomerular Filtration Rate [...] actual GFR. Performed By: #### 3 084-1, 2532-0, 78045-1 #### [facility] CLIA [id number] [address] [place] [address] Glucose [Mass/Vol] 101 mg/dL High 74-99 [facility] Comment on above: Order Comment: Nando mike Type: BLOOD SPECIMEN Ordering Facility: [facility] Address: [address] [place] [id number] Result Comment: The [place] Diabetes Association (ADA) provides guidance for cutoff [...] Standards of Medical Care in Diabetes 2016, [place] [employer]. Diabetes Care. 2016.39(Suppl 1). Performed By: #### 3 084-1, 2531-0, #### [facility] CLIA [id number] [address] [place] [address] Potassium [Moles/Vol] 5.2 mmol/L High 3.7-5.1 [facility] Comment on above: Order Comment: Speci men Type: BLOOD SPECIMEN Ordering Facility: [facility] Address: [address] [place] [address] Performed By: #### 3 084-1, 2531-0, #### [facility] CLIA [id number] [address] [place] [address] Protein [Mass/Vol] 6.6 g/dL Normal 6.3-8.0 [facility] Comment on above: Order Comment: Speci men Type: BLOOD SPECIMEN Ordering Facility: [facility] Address: [address] [place] [address] Performed By: #### 3 084-1, 2531-0, #### [facility] CLIA [id number] [address] [place] [address] Sodium [Moles/Vol] 135 mmol/L Low 136-144 [facility] Comment on above: Order Comment: Speci men Type: BLOOD SPECIMEN Ordering Facility: [facility] Address: [address] [place] [address] Performed By: #### 3 084-1, 2531-0, 50171-4 #### [facility] CLIA [id number] [address] [place] [address] Urea nitrogen [Mass/Vol] 13 mg/dL Normal 7-21 [facility] Comment on above: Order Comment: Speci men Type: BLOOD SPECIMEN Ordering Facility: [facility] Address: [address] [place] [address] Performed By: #### 3 084-1, 2531-0, 58937-7 #### [facility] CLIA [id number] [address] [place] [address] Eosinophils/100 WBC Auto (Bl d)on 11-07-2023 Eosinophils/100 WBC (Bld) 0.0 % [facility] Erythrocyte distribution wid th Auto (RBC) [Ratio]on 11-07-2023 Erythrocyte distribution width (RBC) [Ratio] 13.2 % 11.5-15.0 [facility] Hematocrit Auto (Bld) [Volum e fraction]on 11-07-2023 Hematocrit (Bld) [Volume fraction] 41.4 % 36.0-46.0 [facility] Hemoglobin [Mass/volume] in Bloodon 11-07-2023 Hemoglobin (Bld) [Mass/Vol] 14.5 g/dL 11.5-15.5 [facility] LDH SerPl-cCncon 11-07-2023 LDH [Catalytic activity/Vol] 175 U/L Normal 135-214 [facility] Comment on above: Order Comment: Speci men Type: BLOOD SPECIMEN Ordering Facility: [facility] Address: [address] [place] [address] Result Comment: Hemo lysis present. The origin [...] clinically indicated. Performed By: #### 3 084-1, 2532-0, 63088-8 #### [facility] CLIA [id number] [address] [place] [address] Laboratory - Chemistry and C hemistry - challengeon 11-07-2023 Albumin [Mass/Vol] 4.7 g/dL 3.9-4.9 [facility] ALP [Catalytic activity/Vol] 82 U/L 34-123 [facility] ALT [Catalytic activity/Vol] 15 U/L 7-38 [facility] AST [Catalytic activity/Vol] 19 U/L 13-35 [facility] Bilirubin [Mass/Vol] 0.4 mg/dL 0.2-1.3 [facility] Calcium [Mass/Vol] 9.5 mg/dL 8.5-10.2 [facility] Chloride [Moles/Vol] 102 mmol/L 98-107 [facility] CO2 [Moles/Vol] 23 mmol/L 22-30 [facility] Creatinine [Mass/Vol] 0.80 mg/dL 0.58-0.96 [facility] Glucose [Mass/Vol] 101 mg/dL High 74-99 [facility] Comment on above: The [place] Diabete s Association (ADA) provides guidance for [...] Standards of Medical Care in Diabetes 2016, [place] [employer]. Diabetes Care. 2016.39(Suppl 1). LDH [Catalytic activity/Vol] 175 U/L 135-214 [facility] Comment on above: Hemolysis present. T [...] indicated. Potassium [Moles/Vol] 5.2 mmol/L High 3.7-5.1 [facility] Sodium [Moles/Vol] 135 mmol/L Low 136-144 [facility] Urate [Mass/Vol] 3.5 mg/dL 2.5-6.6 [facility] Urea nitrogen [Mass/Vol] 13 mg/dL 7-21 [facility] Laboratory - Hematology and Cell countson 11-07-2023 Eosinophils (Bld) [#/Vol] 0.00 10*3/uL <0.46 [facility] Leukocytes [#/volume] correc dudley for nucleated erythrocytes in Blood by Automated counon 11-07-2023 WBC corrected for nucl RBC Auto (Bld) [#/Vol] 24.44 k/uL High 3.70-11.00 [facility] Comment on above: Results checked and verified.No clot detected. Lymphocytes Auto (Bld) [#/Vo l]on 11-07-2023 Lymphocytes (Bld) [#/Vol] 19.06 10*3/uL High 1.00-4.00 [facility] Lymphocytes/100 WBC Auto (Bl d)on 11-07-2023 Lymphocytes/100 WBC (Bld) 78.0 % [facility] MCH Auto (RBC) [Entitic mass ]on 11-07-2023 MCH (RBC) [Entitic mass] 32.3 pg 26.0-34.0 [facility] MCHC Auto (RBC) [Mass/Vol]on 11-07-2023 MCHC (RBC) [Mass/Vol] 35.0 g/dL 30.5-36.0 [facility] MCV Auto (RBC) [Entitic vol] on 11-07-2023 MCV (RBC) [Entitic vol] 92.2 fL 80.0-100.0 [facility] Monocytes Auto (Bld) [#/Vol] on 11-07-2023 Monocytes (Bld) [#/Vol] 0.49 10*3/uL <0.87 [facility] Monocytes/100 WBC Auto (Bld) on 11-07-2023 Monocytes/100 WBC (Bld) 2.0 % [facility] Neutrophils Auto (Bld) [#/Vo l]on 11-07-2023 Neutrophils (Bld) [#/Vol] 4.64 10*3/uL 1.45-7.50 [facility] Neutrophils/100 WBC Auto (Bl d)on 11-07-2023 Neutrophils/100 WBC (Bld) 19.0 % [facility] No Panel Informationon 11-06 Estimated GFR (CKD-EPI) 77 mL/min/1.73m??? >=60 [facility] Comment on above: Estimated Glomerular Filtration [...] Morphology Reviewed: see results of individual morphologies [facility] Nucleated RBC Auto (Bld) [#/ Vol]on 11-07-2023 Nucleated RBC (Bld) [#/Vol] 0.24 10*3/uL High <0.01 [facility] Nucleated erythrocytes [Pres ence] in Blood by Automated counton 11-07-2023 Nucleated RBC Auto Ql (Bld) 1.0 /100{WBC} [facility] Ovalocyte detectionon 2023 Ovalocytes LM Ql (Bld) Few [facility] Platelet adequacy [Presence] in Blood by Light microscopyon 11-07-2023 Platelets LM Ql (Bld) Adequate [facility] Platelet mean volume Auto (B ld) [Entitic vol]on 11-07-2023 Platelet mean volume (Bld) [Entitic vol] 9.7 fL 9.0-12.7 [facility] Platelets Auto (Bld) [#/Vol] on 11-07-2023 Platelets (Bld) [#/Vol] 227 10*3/uL 150-400 [facility] Comment on above: Results checked and verified.No clot detected. Protein [Mass/volume] in Ser um or Plasmaon 11-07-2023 Protein [Mass/Vol] 6.6 g/dL 6.3-8.0 [facility] RBC Auto (Bld) [#/Vol]on RBC (Bld) [#/Vol] 4.49 10*6/uL 3.90-5.20 [facility] Serum or plasma anion gap de terminationon 11-07-2023 Anion gap [Moles/Vol] 10 mmol/L 8-15 [facility] Urate SerPl-mCncon Urate [Mass/Vol] 3.5 mg/dL Normal 2.5-6.[address] [facility] Comment on above: Order Comment: Speci men Type: BLOOD SPECIMEN Ordering Facility: [facility] Address: [address] [place] [id number] Performed By: #### 3 084-1, 2532-0, 85103-2 #### [facility] CLIA [id number] [address] [place] [address] BI MAMMOGRAM SCREENING TOMOS YNTHESIS BILATERALon 09-05-2023 [...] IS VERY IMPORTANT TO YOUR HEALTH. THE [place] [employer] GUIDELINES RECOMMEND THAT WOMEN 40 [...] Normal Not Available DEXA BONE DENSITYon 09-05-19 DEXA BONE DENSITY Region BMD [place] lt [...] 05-09-2023 Basophils (Bld) [#/Vol] 0.00 10*3/uL <0.11 [facility] Basophils/100 WBC Auto (Bld) on 05-09-2023 Basophils/100 WBC (Bld) 0.0 % [facility] Blood manual differential co mment interpretation narrativeon 05-09-2023 Manual differential comment Charan (Bld) [Interp] Manual [facility] Eosinophils/100 WBC Auto (Bl d)on 05-09-2023 Eosinophils/100 WBC (Bld) 1.0 % [facility] Erythrocyte distribution wid th Auto (RBC) [Ratio]on 05-09-2023 Erythrocyte distribution width (RBC) [Ratio] 13.1 % 11.5-15.0 [facility] Hematocrit Auto (Bld) [Volum e fraction]on 05-09-2023 Hematocrit (Bld) [Volume fraction] 42.7 % 36.0-46.0 [facility] Hemoglobin [Mass/volume] in Bloodon 05-09-2023 Hemoglobin (Bld) [Mass/Vol] 14.4 g/dL 11.5-15.5 [facility] Laboratory - Chemistry and C hemistry - challengeon 05-09-2023 Albumin [Mass/Vol] 4.8 g/dL 3.9-4.9 [facility] ALP [Catalytic activity/Vol] 80 U/L 34-123 [facility] ALT [Catalytic activity/Vol] 12 U/L 7-38 [facility] AST [Catalytic activity/Vol] 17 U/L 13-35 [facility] Bilirubin [Mass/Vol] 0.4 mg/dL 0.2-1.3 [facility] Calcium [Mass/Vol] 9.8 mg/dL 8.5-10.2 [facility] Chloride [Moles/Vol] 103 mmol/L 97-105 [facility] CO2 [Moles/Vol] 25 mmol/L 22-30 [facility] Creatinine [Mass/Vol] 0.80 mg/dL 0.58-0.96 [facility] Glucose [Mass/Vol] 98 mg/dL 74-99 [facility] Comment on above: The [place] Diabete s Association (ADA) provides guidance for [...] Standards of Medical Care in Diabetes 2016, [place] Diabetes [employer]. Diabetes Care. 2016.39(Suppl 1). LDH [Catalytic activity/Vol] 180 U/L 135-214 [facility] Comment on above: Hemolysis present. T [...] clinically indicated. Potassium [Moles/Vol] 5.0 mmol/L 3.7-5.1 [facility] Protein [Mass/Vol] 6.7 g/dL 6.3-8.0 [facility] Sodium [Moles/Vol] 138 mmol/L 136-144 [facility] Urate [Mass/Vol] 4.7 mg/dL 2.5-6.6 [facility] Urea nitrogen [Mass/Vol] 13 mg/dL 7-21 [facility] Laboratory - Hematology and Cell countson 05-09-2023 Eosinophils (Bld) [#/Vol] 0.25 10*3/uL <0.46 [facility] Leukocytes [#/volume] correc dudley for nucleated erythrocytes in Blood by Automated counon 05-09-2023 WBC corrected for nucl RBC Auto (Bld) [#/Vol] 24.93 k/uL 3.70-11.00 [facility] Lymphocytes Auto (Bld) [#/Vo l]on 05-09-2023 Lymphocytes (Bld) [#/Vol] 19.20 10*3/uL 1.00-4.00 [facility] Lymphocytes/100 WBC Auto (Bl d)on 05-09-2023 Lymphocytes/100 WBC (Bld) 77.0 % [facility] MCH Auto (RBC) [Entitic mass ]on 05-09-2023 MCH (RBC) [Entitic mass] 32.1 pg 26.0-34.0 [facility] MCHC Auto (RBC) [Mass/Vol]on 05-09-2023 MCHC (RBC) [Mass/Vol] 33.7 g/dL 30.5-36.0 [facility] MCV Auto (RBC) [Entitic vol] on 05-09-2023 MCV (RBC) [Entitic vol] 95.3 fL 80.0-100.0 [facility] Monocytes Auto (Bld) [#/Vol] on 05-09-2023 Monocytes (Bld) [#/Vol] 0.50 10*3/uL <0.87 [facility] Monocytes/100 WBC Auto (Bld) on 05-09-2023 Monocytes/100 WBC (Bld) 2.0 % [facility] Neutrophils Auto (Bld) [#/Vo l]on 05-09-2023 Neutrophils (Bld) [#/Vol] 4.99 10*3/uL 1.45-7.50 [facility] Neutrophils/100 WBC Auto (Bl d)on 05-09-2023 Neutrophils/100 WBC (Bld) 20.0 % [facility] No Panel Informationon 05-09 Estimated GFR (CKD-EPI) 77 mL/min/1.73m??? >=60 [facility] Comment on above: Estimated Glomerular Filtration [...] Morphology Reviewed: see results of individual morphologies [facility] Nucleated RBC Auto (Bld) [#/ Vol]on 05-09-2023 Nucleated RBC (Bld) [#/Vol] 10*3/uL <0.01 [facility] Nucleated erythrocytes [Pres ence] in Blood by Automated counton 05-09-2023 Nucleated RBC Auto Ql (Bld) 0.0 /100{WBC} [facility] Ovalocyte detectionon 2023 Ovalocytes LM Ql (Bld) Few [facility] Platelet adequacy [Presence] in Blood by Light microscopyon 05-09-2023 Platelets LM Ql (Bld) Adequate [facility] Platelet mean volume Auto (B ld) [Entitic vol]on 05-09-2023 Platelet mean volume (Bld) [Entitic vol] 9.9 fL 9.0-12.7 [facility] Platelets Auto (Bld) [#/Vol] on 05-09-2023 Platelets (Bld) [#/Vol] 228 10*3/uL 150-400 [facility] RBC Auto (Bld) [#/Vol]on RBC (Bld) [#/Vol] 4.48 10*6/uL 3.90-5.20 [facility] Serum or plasma anion gap de terminationon 05-09-2023 Anion gap [Moles/Vol] 10 mmol/L 12-06 [facility] XR foot RT min 3V*on 023 XR foot RT min 3V* [facility] [address] [place] [address] XRay Report Signed Patient: Nadeen Oquendo MR#: [id number] : 1950 Acct:[id number] Age/Sex: 72 / F ADM Date: 12/04/22 Loc: XDUCLY Room: Type: [facility] Attending Dr: Daija SEWELL Copies to: DONATO [...] Dorita Garcia M.D.12/04/2022 12:47 PM Dictation Location: [place] [address] Transcribed By: [facility] 12/04/22 1247 Dictated By: Dorita Garcia II, MD 12/04/22 1244 Signed By: 12/04/22 1247 Normal [facility] XR foot RT min 3V* [facility] [employer] Other XR foot RT min 3V* [facility] [employer] Other XR foot RT min 3V* [address] [facility] [employer] Other XR foot RT min 3V* [place] [address] [facility] [employer] Other XR foot RT min 3V* XRay Report [employer] Other XR foot RT min 3V* Signed [employer] Other XR foot RT min 3V* Patient: Nadeen Oquendo MR#: [id number] [employer] Other XR foot RT min 3V* [address] [employer] Other XR foot RT min 3V* : 1950 Acct:[id number] [employer] Other XR foot RT min 3V* Age/Sex: 72 / F ADM Date: 12/04/22 [employer] Other XR foot RT min 3V* [facility]: [facility]: [facility] [employer] Other XR foot RT min 3V* Attending Dr: Daija SEWELL [employer] Other XR foot RT min 3V* Copies to: DONATO Ward [employer] Other XR foot RT min 3V* Ordering Provider: DONATO Ward [employer] Other XR foot RT min 3V* Date of Service: 12/04/22 [employer] Other XR foot RT min 3V* XR/XR foot RT min 3V*: RIGHT FOOT PAIN [employer] Other XR foot RT min 3V* XR foot RT min 3V* 12/04/2022 12:32 PM [facility] Other XR foot RT min 3V* SIGNS AND SYMPTOMS: Pain over the dorsal aspect of the right foot. The metatarsals [employer] Other XR foot RT min 3V* PROTOCOL: Frontal, lateral, and oblique radiographs of the right foot [employer] Other XR foot RT min 3V* COMPARISON: None [employer] Other XR foot RT min 3V* FINDINGS: [employer] Other XR foot RT min 3V* The bones are in anatomic alignment. The joint spaces are preserved. There is no evidence of [employer] Other XR foot RT min 3V* fracture or dislocation. [employer] Other XR foot RT min 3V* XR/XR foot RT min 3V* [employer] Other XR foot RT min 3V* IMPRESSION: [employer] Other XR foot RT min 3V* No fracture or dislocation. [employer] Other XR foot RT min 3V* No significant soft tissue swelling. [employer] Other XR foot RT min 3V* Impression dictated by: Dorita Garcia M.D.12/04/2022 12:47 PM [employer] Other XR foot RT min 3V* Dictation Location: [place] [address] [employer] Other XR foot RT min 3V* Transcribed By: NICK 12/04/22 [facility] [employer] Other XR foot RT min 3V* Dictated By: Dorita Garcia II, MD 12/04/22 124 [employer] Other XR foot RT min 3V* Signed By: [employer] Other XR foot RT min 3V* 12/04/[address] [facility] Other Antolin 08-19-2022 L --- Specimen: [id number] Received: 08/19/22 Status: BERTA Lagunas Num: [id number] Spec Type: Surgical Subm Dr: Jake Mireles MD Tissues: A Colon Biopsy (SIGMOID POLYP) B Colon Biopsy (RECTAL POLYP) Procedures: PADMINI Gross/Micro L4/2 Age/ Patient Sex Location Account Attending Physician Nadeen Oquendo 71/F [id number] Jake Mireles MD SPEC NUM: [id number] RECD: 08/19/22 STATUS: BERTA LAGUNAS NUM: [id number] DARI: 08/19/22- SUBM DR: Jake Mireles MD ENTERED: 08/19/22-1003 CLAUDIA PEÑALOZA: SPEC TYPE: Surgical DEPT: S ORDERED: HE/4, Gross/Micro L4/2 ORDERED: , Gross/Micro L4/2 Pathological Diagnosis A. Colon, sigmoid, [...] submitted in one cassette labeled B1. Specimen: [id number] Received: 08/19/22 Status: BERTA Lagunas Num: [id number] Spec Type: Surgical Subm Dr: Jake Mireles MD Tissues: A Colon Biopsy (SIGMOID POLYP) B Colon Biopsy (RECTAL POLYP) Procedures: , Gross/Micro L4/2 Patient: Nadeen Oquendo [id number] (Continued) Specimen: [id number] Received: 08/19/22 (Continued) Signed (signature on file) Lyn Velez MD 08/20/22 1017 Specimen: [id number] Received: 08/19/22 Status: BERTA Lagunas Num: [id number] Spec Type: Surgical Subm Dr: Jake Mireles MD Tissues: A Colon Biopsy (SIGMOID POLYP) B Colon Biopsy (RECTAL POLYP) Procedures: HE/Channing, Gross/Micro L4/2 Patient: Nadeen Oquendo [id number] (Continued) Specimen: [id number] Received: 08/19/22 (Continued) Microscopic Description A. Two H E slides reviewed. The microscopic examination confirms the diagnosis. B. Two H E slides reviewed. The microscopic examination confirms the diagnosis. CPT Codes 95930r8 Specimen: [id number] Received: 08/19/22 Status: BERTA Lagunas Num: [id number] Spec Type: Surgical Subm Dr: Jake Mireles MD Tissues: A Colon Biopsy (SIGMOID POLYP) B Colon Biopsy (RECTAL POLYP) Procedures: Sanjana [place]/Willie L4/2 Patient: Nadeen Oquendo [id number] (Continued) Signed (signature on file) Lyn Velez MD 08/20/22 1017 [facility] Comprehensive metabolic 2000 panelon 05-10-2022 Albumin [Mass/Vol] 4.7 g/dL 3.9 - 4.9 g/dL [facility] ALP [Catalytic activity/Vol] 80 U/L 34 - 123 U/L [facility] ALT [Catalytic activity/Vol] 12 U/L 7 - 38 U/L [facility] Anion gap [Moles/Vol] 9 mmol/L 9 - 18 mmol/L [facility] AST [Catalytic activity/Vol] 19 U/L 13 - 35 U/L [facility] Bilirubin [Mass/Vol] 0.3 mg/dL 0.2 - 1.3 mg/dL [facility] Calcium [Mass/Vol] 10.0 mg/dL 8.5 - 10. 2 mg/dL [facility] Chloride [Moles/Vol] 102 mmol/L 97 - 105 mmol/L [facility] CO2 [Moles/Vol] 26 mmol/L 22 - 30 mmol/L [facility] Creatinine [Mass/Vol] 0.87 mg/dL 0.58 - 0.96 mg/dL [facility] Estimated Glomerular Filtration Rate 70 mL/min/1.73m >=60 mL/min/1.73m [facility] Glucose [Mass/Vol] 93 mg/dL 74 - 99 mg/dL [facility] Potassium [Moles/Vol] 4.4 mmol/L 3.7 - 5.1 mmol/L [facility] Protein [Mass/Vol] 6.6 g/dL 6.3 - 8.0 g/dL [facility] Sodium [Moles/Vol] 137 mmol/L 136 - 144 mmol/L [facility] Urea nitrogen [Mass/Vol] 10 mg/dL 7 - 21 mg/dL [facility] LD LACTATE DEHYDROon 023 LDH [Catalytic activity/Vol] 172 U/L 135 - 214 U/L [facility] URIC ACID BLOODon 05-10-2022 Urate [Mass/Vol] 4.3 mg/dL 2.5 - 6.6 mg/dL [facility] CT CSPINE WO CONon 2 CT [...] by: ALFREDO GODOY Date: 2022-02-07 00:34 Normal [facility] CT HEAD WO CONon 02-07-2022 CT HEAD [...] ALFREDO GODOY Date: 2022-02-06 23:57 Normal [facility] XR HIP LT 2 3V W [...] ALFREDO GODOY Date: 2022-02-07 00:13 Normal [facility] SCREENING MAMMOGRAM W/RAMIRO, BILATERAL*on 10-16-2021 SCREENING [...] IS VERY IMPORTANT TO YOUR HEALTH. CURRENT [employer] GUIDELINES RECOMMENDS ANNUAL MAMMOGRAPHY BEGINNING AT AGE 38. THIS FACILITY USUALLY USES A REMINDER SYSTEM TO ENSURE ALL POSITIONS RECEIVED REMINDER NOTIFICATIONS AT THE TIME BASED ON THE RECOMMENDATIONS OF THIS EXAM. Report reported and signed by Guerline Puri on 10/17/2021 1316 Normal [facility] Laryngologist CT CHEST WO CONon 09-23-2021 CT CHEST [...] GUERLINE ANDREWS Date: 2021-09-23 16:16 Normal [facility] CBC AUTO DIFFon 06-19-2021 BASO # 0.1 103/ul Normal 0.0-0.1 [facility] Comment on above: Performed By: #### D ATCBC ####[facility] [address] [place], [place] [address]DrAkira Dumont Basophils/100 WBC (Bld) 0.3 % Normal 0.2-2.0 [facility] Comment on above: Performed By: #### D ATCBC ####[facility] [address] [place], [place] [address]DrAkira Dumont EO # 0.4 103/ul Normal 0.0-0.7 [facility] Comment on above: Performed By: #### D ATCBC ####[facility] [address] [place], [place] [address]DrAkira Dumont Eosinophils/100 WBC (Bld) 1.7 % Normal 0.9-7.0 [facility] Comment on above: Performed By: #### D ATCBC ####[facility] [address] [place], [place] [address]DrAkira Dumont Erythrocyte distribution width (RBC) [Ratio] 13.4 % Normal 11.0-15.0 [facility] Comment on above: Performed By: #### D ATCBC ####[facility] [address] [place], [place] [address]DrAkira Dumont Hematocrit (Bld) [Volume fraction] 38.4 % Normal 36.0-48.0 [facility] Comment on above: Performed By: #### D ATCBC ####[facility] [address] [place] [address]Dr. Peace Dumont Hemoglobin (Bld) [Mass/Vol] 13.0 g/dL Normal 12.0-16.0 [facility] Comment on above: Performed By: #### D ATCBC ####[facility] [address] [place], [place] [address]Dr. Peace Dumont IG # 0.03 10e3/ul Normal 0.00-0.03 [facility] Comment on above: Performed By: #### D ATCBC ####[facility] [address] [place], [place] [address]Dr. Peace Dumont IG % 0.1 % Normal 0.0-0.5 [facility] Comment on above: Performed By: #### D ATCBC ####[facility] [address] [place], [place] [address]Dr. Peace Dumont LYMPH # 15.3 103/ul Critically high 1.2-3.8 [facility] Comment on above: Performed By: #### D ATCBC ####[facility] [address] [place], [place] [address]Dr. Peace Dumont Lymphocytes/100 WBC (Bld) 75.8 % Critically high 20.5-60.0 [facility] Comment on above: Performed By: #### D ATCBC ####[facility] [address] [place], [place] [address]Dr. Peace Dumont MCH (RBC) [Entitic mass] 31.6 pg Normal 26.7-34.0 [facility] Comment on above: Performed By: #### D ATCBC ####[facility] [address] [place], [place] [address]Dr. Peace Dumont MCHC (RBC) [Mass/Vol] 33.9 g/dL Normal 29.9-35.2 [facility] Comment on above: Performed By: #### D ATCBC ####[facility] [address] [place] [id number]. Peace Dumont MCV (RBC) [Entitic vol] 93.4 fL Normal 81.0-99.0 [facility] Comment on above: Performed By: #### D ATCBC ####[facility] [address] [place] [id number]. Peace Dumont MONO # 1.3 103/ul Critically high 0.3-0.8 [facility] Comment on above: Performed By: #### D ATCBC ####[facility] [address] [place] [id number]. Peace Dumont Monocytes/100 WBC (Bld) 6.3 % Normal 1.7-12.0 [facility] Comment on above: Performed By: #### D ATCBC ####[facility] [address] [place], [place] [address]Dr. Peace Dumont NEUT # 3.2 103/ul Normal 1.4-6.5 [facility] Comment on above: Performed By: #### D ATCBC ####[facility] [address] [place] [id number]. Peace Dumont Neutrophils/100 WBC (Bld) 15.8 % Critically low 43.0-75.0 [facility] Comment on above: Performed By: #### D ATCBC ####[facility] [address] [place] [id number]. Peace Dumont Platelet mean volume (Bld) [Entitic vol] 9.9 fL Normal 9.5-13.5 [facility] Comment on above: Performed By: #### D ATCBC ####[facility] [address] [place] [id number]. Peace Dumont PLT 182 103/ul Normal 150-450 [facility] Comment on above: Performed By: #### D ATCBC ####[facility] [address] [place], [place] [address]Dr. Peace Dumont RBC 4.11 106/ul Critically low 4.20-5.40 [facility] Comment on above: Performed By: #### D ATCBC ####[facility] [address] [place], [place] [address]Dr. Peace Dumont WBC 20.3 103/ul Critically high 4.0-11.0 [facility] Comment on above: Performed By: #### D ATCBC ####[facility] [address] [place], [place] [address]YdDr. Peace Dumont ERNESTINE- BMP WITH LIPIDon 2021 Anion gap [Moles/Vol] 11.2 mmol/L Normal [facility] Comment on above: Performed By: #### D ATBMP #### [facility] [address] [place] [address] [address] Peace Dumont Calcium [Mass/Vol] 8.7 mg/dL Normal 8.5-10.1 [facility] Comment on above: Performed By: #### D ATBMP #### [facility] [address] [place] [address] [address] Peace Dumont Chloride [Moles/Vol] 103 mmol/L Normal 98-107 [facility] Comment on above: Performed By: #### D ATBMP #### [facility] [address] [address] [address] Peace Dumont Cholesterol [Mass/Vol] 208 mg/dL Critically high <=200 [facility] Comment on above: Performed By: #### D ATBMP #### [facility] [address] [address] [address] Peace Dumont Cholesterol in HDL [Mass/Vol] 56 mg/dL Normal 40-60 [facility] Comment on above: Performed By: #### D ATBMP #### [facility] [address] [address] [address] Peace Dumont Cholesterol in LDL [Mass/Vol] 136.8 mg/dL Normal [facility] Comment on above: Performed By: #### D ATBMP #### [facility] [address] [address] [address] Peace Dumont CO2 [Moles/Vol] 27.8 mmol/L Normal 22.0-30.0 [facility] Comment on above: Performed By: #### D ATBMP #### [facility] [address] [address] [address] Peace Dumont Creatinine [Mass/Vol] 0.82 mg/dL Normal 0.52-1.04 [facility] Comment on above: Performed By: #### D ATBMP #### [facility] [address] [address] [address] Peace Dumont EGFR-AF FILIPINO >60 Normal >=60 [facility] Comment on above: Performed By: #### D ATBMP #### [facility] [address] [address] [address] Peace Dumont EGFR-NON AF FILIPINO >60 Normal >=60 [facility] Comment on above: Performed By: #### D ATBMP #### [facility] [address] [address] [address] Peace Dumont Glucose [Mass/Vol] 90 mg/dL Normal 74-106 [facility] Comment on above: Performed By: #### D ATBMP #### [facility] [address] [address] [address] Peace Dumont HDL NORMAL > or = 60 mg/dl - LO W CARDIOVASCULAR RISK <40 mg/dl - HIGH CARDIOVASCULAR RISK Normal [facility] Comment on above: Performed By: #### D ATBMP #### [facility] [address] [address] [address] Peace Dumont LDL CALC NORMAL SEE BELOW Normal [facility] Comment on above: Result Comment: <100 mg/dl OPTIMAL 100 - 129 mg/dl NEAR OR ABOVE OPTIMAL 130 - 159 mg/dl BORDERLINE HIGH 160 - 189 mg/dl HIGH >190 mg/dl VERY HIGH Performed By: #### D ATBMP #### [facility] [address] [address] [address] Peace Dumont Potassium [Moles/Vol] 4.0 mmol/L Normal 3.4-5.0 [facility] Comment on above: Performed By: #### D ATBMP #### [facility] [address] [address] [address] Peace Dumont Sodium [Moles/Vol] 138 mmol/L Normal 137-145 [facility] Comment on above: Performed By: #### D ATBMP #### [facility] [address] [address] [address] Peace Dumont Triglyceride [Mass/Vol] 76 mg/dL Normal <=150 [facility] Comment on above: Performed By: #### D ATBMP #### [facility] [address] [address] [address] Peace Dumont Urea nitrogen [Mass/Vol] 14.0 mg/dL Normal 7.0-18.0 [facility] Comment on above: Performed By: #### D ATBMP #### [facility] [address] [place] [address] Dr. Peace Dumont Urea nitrogen/Creatinine [Mass ratio] 17.1 mg/mg Normal [facility] Comment on above: Performed By: #### D ATBMP #### [facility] [address] [place] [address] Dr. Peace Dumont VLDL CALC 15.2 mg/dL Normal [facility] Comment on above: Performed By: #### D ATBMP #### [facility] [address] [place] [address] LUNG CANCER SCREENINGon [...] GUERLINE ANDREWS Date: 2021-03-25 11:05 Normal [facility] Covid-19 PCR (CVDTB)on SARS-CoV-2 (COVID-19) RNA ENRIQUE+probe Ql (Unsp spec) Not detected Normal NOT DETECTED [facility] Comment on above: Result Comment: This test is not yet approved or cleared by the [place] FDA. When there are no FDA-approved or cleared tests available, and other criteria are met, FDA can make tests available under an emergency access mechanism called an Emergency Use Authorization (EUA). The EUA for this test is supported by the [employer] of Health and Human Service's (HHS's) declaration [...] consistent with SARS-CoV-2. Performed By: #### C VDTB ####[facility] [address] [place], [place] [address]Yw. Peace Dumont PROGRESSon 08-24-2017 [facility] NOTES Normal [facility] PROGRESSon 01-25-2017 [facility] NOTES Normal [facility] Vital Signs Date Time Vital Sign Value Performing Clinician Facility 05-14-2024 10:33-0500 Body height 175.3 cm Fernando Hanna MD Work Phone: [facility] 05-14-2024 10:33-0500 Body mass index (BMI) [Ratio] 20.4 kg/m2 Fernando Hanna MD Work Phone: [facility] 05-14-2024 10:33-0500 Body temperature 97.3 [degF] Fernando Hanna MD Work Phone: [facility] 05-14-2024 10:33-0500 Body weight 62.7 kg Fernando Hanna MD Work Phone: [facility] 05-14-2024 10:33-0500 Diastolic blood pressure 74 mm[Hg] Fernando Hanna MD Work Phone: [facility] 05-14-2024 10:33-0500 Heart rate 60 /min Fernando Hanna MD Work Phone: [facility] 05-14-2024 10:33-0500 Respiratory rate 16 /min Fernando Hanna MD Work Phone: [facility] 05-14-2024 10:33-0500 SaO2% (BldA) [Mass fraction] 100 % Fernando Hanna MD Work Phone: [facility] 05-14-2024 10:33-0500 Systolic blood pressure 140 mm[Hg] Fernando Hanna MD Work Phone: [facility] 05-02-2024 09:30-0500 Body height 175.26 cm [facility] 05-02-2024 09:30-0500 Body mass index (BMI) [Ratio] 20.1 kg/m2 [facility] 05-02-2024 09:30-0500 Body weight 61.91 kg [facility] 05-02-2024 09:30-0500 Diastolic blood pressure 80 mm[Hg] [facility] 05-02-2024 09:30-0500 Heart rate 80 /min [facility] 05-02-2024 09:30-0500 Respiratory rate 12 /min [facility] [place] 05-02-2024 09:30-0500 Systolic blood pressure 143 mm[Hg] [facility] 11-25-2023 10:46-0400 Body height 175.26 cm [facility] 11-25-2023 10:46-0400 Body mass index (BMI) [Ratio] 19.9 kg/m2 [facility] 11-25-2023 10:46-0400 Body weight 61.29 kg [facility] 11-25-2023 10:46-0400 Diastolic blood pressure 80 mm[Hg] [facility] 11-25-2023 10:46-0400 Heart rate 62 /min [facility] 11-25-2023 10:46-0400 Respiratory rate 12 /min [facility] [place] 11-25-2023 10:46-0400 Systolic blood pressure 129 mm[Hg] [facility] 11-07-2023 10:23-0400 Body height 175.3 cm Fernando Hanna MD Work Phone: [facility] 11-07-2023 10:23-0400 Body mass index (BMI) [Ratio] 20.11 kg/m2 Fernando Hanna MD Work Phone: [facility] 11-07-2023 10:23-0400 Body temperature 97.11 [degF] Fernando Hanna MD Work Phone: [facility] 11-07-2023 10:23-0400 Body weight 61.8 kg Fernando Hanna MD Work Phone: [facility] 11-07-2023 10:23-0400 Diastolic blood pressure 75 mm[Hg] Fernando Hanna MD Work Phone: [facility] 11-07-2023 10:23-0400 Heart rate 64 /min Fernando Hanna MD Work Phone: [facility] 11-07-2023 10:23-0400 Respiratory rate 16 /min Fernando Hanna MD Work Phone: [facility] 11-07-2023 10:23-0400 SaO2% (BldA) [Mass fraction] 98 % Fernando Hanna MD Work Phone: [facility] 11-07-2023 10:23-0400 Systolic blood pressure 127 mm[Hg] Fernando Hanna MD Work Phone: [facility] 10-19-2023 09:42-0400 Body height 175.26 cm [facility] 10-19-2023 09:42-0400 Body mass index (BMI) [Ratio] 20.3 kg/m2 [facility] 10-19-2023 09:42-0400 Body weight 62.59 kg [facility] 09-05-2023 09:48-0400 Body height 175.26 cm [facility] 09-05-2023 09:48-0400 Body mass index (BMI) [Ratio] 20.4 kg/m2 [facility] 09-05-2023 09:48-0400 Body weight 62.82 kg [facility] 09-05-2023 09:48-0400 Diastolic blood pressure 86 mm[Hg] [facility] 09-05-2023 09:48-0400 Heart rate 60 /min [facility] 09-05-2023 09:48-0400 Respiratory rate 12 /min [facility] [place] 09-05-2023 09:48-0400 Systolic blood pressure 139 mm[Hg] [facility] 06-20-2023 13:53-0400 Body height 175.26 cm [facility] 06-20-2023 13:53-0400 Body mass index (BMI) [Ratio] 20.2 kg/m2 [facility] 06-20-2023 13:53-0400 Body weight 62.14 kg [facility] 06-20-2023 13:53-0400 Diastolic blood pressure 74 mm[Hg] [facility] 06-20-2023 13:53-0400 Heart rate 60 /min [facility] 06-20-2023 13:53-0400 Respiratory rate 12 /min [facility] [place] 06-20-2023 13:53-0400 Systolic blood pressure 131 mm[Hg] [facility] 05-09-2023 09:54-0500 Body height 175.3 cm Fernando Hanna MD Work Phone: [facility] 05-09-2023 09:54-0500 Body temperature 98.01 [degF] Fernando Hanna MD Work Phone: [facility] 05-09-2023 09:54-0500 Body weight 61.6 kg Fernando Hanna MD Work Phone: [facility] 05-09-2023 09:54-0500 Diastolic blood pressure 73 mm[Hg] Fernando Hanna MD Work Phone: [facility] 05-09-2023 09:54-0500 Heart rate 65 /min Fernando Hanna MD Work Phone: [facility] 05-09-2023 09:54-0500 Respiratory rate 16 /min Fernando Hanna MD Work Phone: [facility] 05-09-2023 09:54-0500 SaO2% (BldA) [Mass fraction] 99 % Fernando Hanna MD Work Phone: [facility] 05-09-2023 09:54-0500 Systolic blood pressure 140 mm[Hg] Fernando Hanna MD Work Phone: [facility] 04-20-2023 09:45-0500 Body height 175.26 cm Schuyler Ball Other [facility] 04-20-2023 09:45-0500 Body mass index (BMI) [Ratio] 20.02 kg/m2 Schuyler Ball Other [facility] Other 04-20-2023 09:45-0500 Body weight 61.51 kg Schuyler Ball Other [facility] Other 04-20-2023 09:45-0500 Body weight 61.5 kg [facility] 04-20-2023 09:45-0500 Diastolic blood pressure 77 mm[Hg] Schuyler Ball Other [facility] 04-20-2023 09:45-0500 Respiratory rate 12 /min Schuyler Ball Other [facility] Other 04-20-2023 09:45-0500 Systolic blood pressure 133 mm[Hg] Schuyler Ball Other [facility] 02-25-2023 10:30-0500 Body height 175.26 cm Schuyler Ball Other [facility] Other 02-25-2023 10:30-0500 Body mass index (BMI) [Ratio] 19.93 kg/m2 Schuyler Ball Other [facility] Other 02-25-2023 10:30-0500 Body weight 61.24 kg Schuyler Ball Other [facility] Other 02-25-2023 10:30-0500 Diastolic blood pressure 84 mm[Hg] Schuyler Ball Other [facility] Other 02-25-2023 10:30-0500 Respiratory rate 16 /min Schuyler Ball Other [facility] Other 02-25-2023 10:30-0500 SaO2% (BldA) [Mass fraction] 97 % Schuyler Ball Other [facility] Other 02-25-2023 10:30-0500 Systolic blood pressure 148 mm[Hg] Schuyler Ball Other [facility] Other 02-18-2023 08:45-0500 Body height 175.26 cm Schuyler Ball Other [facility] Other 02-18-2023 08:45-0500 Body mass index (BMI) [Ratio] 20.35 kg/m2 Schuyler Ball Other [facility] Other 02-18-2023 08:45-0500 Body weight 62.51 kg Schuyler Ball Other [facility] Other 02-18-2023 08:45-0500 Diastolic blood pressure 84 mm[Hg] Schuyler Ball Other [facility] Other 02-18-2023 08:45-0500 Respiratory rate 12 /min Schuyler Ball Other [facility] Other 02-18-2023 08:45-0500 Systolic blood pressure 151 mm[Hg] Schuyler Ball Other [facility] Other 01-12-2023 15:15-0400 Body height 175.26 cm Schuyler Ball Other [facility] Other 01-12-2023 15:15-0400 Body mass index (BMI) [Ratio] 20.49 kg/m2 Schuyler Ball Other [facility] Other 01-12-2023 15:15-0400 Body weight 62.96 kg Schuyler Ball Other [facility] Other 01-12-2023 15:15-0400 Diastolic blood pressure 81 mm[Hg] Schuyler Ball Other [facility] Other 01-12-2023 15:15-0400 Respiratory rate 12 /min Schuyler Ball Other [facility] Other 01-12-2023 15:15-0400 Systolic blood pressure 131 mm[Hg] Schuyler Ball Other [facility] Other 12-17-2022 13:45-0400 Body height 175.26 cm Schuyler Ball Other [employer] Other 12-17-2022 13:45-0400 Body mass index (BMI) [Ratio] 20.67 kg/m2 Schuyler Ball Other [employer] Other 12-17-2022 13:45-0400 Body weight 63.5 kg Schuyler Ball Other [employer] Other 12-17-2022 13:45-0400 Diastolic blood pressure 79 mm[Hg] Schuyler Ball Other [employer] Other 12-17-2022 13:45-0400 Respiratory rate 12 /min Schuyler Ball Other [employer] Other 12-17-2022 13:45-0400 Systolic blood pressure 149 mm[Hg] Schuyler Ball Other [employer] Other 12-04-2022 11:30-0400 Body height 175.26 cm Daija Cain Other [employer] Other 12-04-2022 11:30-0400 Body mass index (BMI) [Ratio] 20.38 kg/m2 Daija Payton Other [employer] Other 12-04-2022 11:30-0400 Body temperature 98.1 [degF] Daija Payton Other [employer] Other 12-04-2022 11:30-0400 Body weight 62.6 kg Daija Cain Other [employer] Other 12-04-2022 11:30-0400 Diastolic blood pressure 69 mm[Hg] Daija Cain Other [employer] Other 12-04-2022 11:30-0400 Respiratory rate 18 /min Daija Cain Other [employer] Other 12-04-2022 11:30-0400 SaO2% (BldA) [Mass fraction] 99 % Daija Cain Other [employer] Other 12-04-2022 11:30-0400 Systolic blood pressure 141 mm[Hg] Daija Cain Other [facility] Other 08-19-2022 08:55-0400 Diastolic blood pressure 44 mm[Hg] DO Schuyler Ball Work Phone: [facility] 08-19-2022 08:55-0400 Heart rate 59 /min DO Schuyler Ball Work Phone: [facility] 08-19-2022 08:55-0400 Respiratory rate 16 /min DO Schuyler Ball Work Phone: [facility] 08-19-2022 08:55-0400 SaO2% (BldA) [Mass fraction] 100 % DO Schuyler Ball Work Phone: [facility] 08-19-2022 08:55-0400 Systolic blood pressure 89 mm[Hg] DO Schuyler Ball Work Phone: [facility] 08-19-2022 07:03-0400 Body height 175.26 cm DO Schuyler Ball Work Phone: [facility] 08-19-2022 07:03-0400 Body temperature 97.9 [degF] DO Schuyler Ball Work Phone: [facility] 08-19-2022 07:03-0400 Body weight 61.23 kg DO Schuyler Ball Work Phone: [facility] 06-23-2022 10:00-0400 Body height 167.64 cm Schuyler Ball Other [employer] Other 06-23-2022 10:00-0400 Body mass index (BMI) [Ratio] 21.69 kg/m2 Schuyler Ball Other [employer] Other 06-23-2022 10:00-0400 Body weight 60.96 kg Schuyler Ball Other [employer] Other 06-23-2022 10:00-0400 Diastolic blood pressure 70 mm[Hg] Schuyler Ball Other [employer] Other 06-23-2022 10:00-0400 Respiratory rate 16 /min Schuyler Ball Other [employer] Other 06-23-2022 10:00-0400 SaO2% (BldA) [Mass fraction] 99 % Schuyler Ball Other [employer] Other 06-23-2022 10:00-0400 Systolic blood pressure 116 mm[Hg] Schuyler Ball Other [employer] Other 05-26-2022 13:00-0500 Body height 175.26 cm Jake Mireles Other [employer] Other 05-26-2022 13:00-0500 Body mass index (BMI) [Ratio] 19.79 kg/m2 Jake Mireles Other [employer] Other 05-26-2022 13:00-0500 Body weight 60.78 kg Jake Mireles Other [employer] Other 05-26-2022 13:00-0500 Respiratory rate 16 /min Jake Mireles Other [employer] Other 05-10-2022 09:04-0500 Body height 175.3 cm Citlaly Cole APRN.ART SALES CONSULTANT Work Phone: [facility] 05-10-2022 09:04-0500 Body temperature 98.71 [degF] Citlaly Cole APPLICATION SUPPORT ANALYST.ART SALES CONSULTANT Work Phone: [facility] 05-10-2022 09:04-0500 Body weight 61.69 kg Citlaly Cole APRN.ART SALES CONSULTANT Work Phone: [facility] 05-10-2022 09:04-0500 Diastolic blood pressure 78 mm[Hg] Citlaly Cole APRN.ART SALES CONSULTANT Work Phone: [facility] 05-10-2022 09:04-0500 Heart rate 67 /min Citlaly Cole APPLICATION SUPPORT ANALYST.ART SALES CONSULTANT Work Phone: [facility] 05-10-2022 09:04-0500 Respiratory rate 16 /min Citlaly Cole APRN.ART SALES CONSULTANT Work Phone: [facility] 05-10-2022 09:04-0500 SaO2% (BldA) [Mass fraction] 100 % Citlaly Cole APRN.ART SALES CONSULTANT Work Phone: [facility] 05-10-2022 09:04-0500 Systolic blood pressure 132 mm[Hg] Citlaly Cole APPLICATION SUPPORT ANALYST.ART SALES CONSULTANT Work Phone: [facility] 12-27-2021 11:00-0400 Body height 175.26 cm Amy Hernandez Other [employer] Other 12-27-2021 11:00-0400 Body mass index (BMI) [Ratio] 20.29 kg/m2 Amy Hernandez Other [employer] Other 12-27-2021 11:00-0400 Body temperature 97 [degF] Amy Hernandez Other [employer] Other 12-27-2021 11:00-0400 Body weight 62.32 kg Amy Hernandez Other [employer] Other 12-27-2021 11:00-0400 Diastolic blood pressure 87 mm[Hg] Amy Hernandez Other [employer] Other 12-27-2021 11:00-0400 Respiratory rate 18 /min Amy Hernandez Other [employer] Other 12-27-2021 11:00-0400 SaO2% (BldA) [Mass fraction] 100 % Amy Hernandez Other [employer] Other 12-27-2021 11:00-0400 Systolic blood pressure 135 mm[Hg] Amy Hernandez Other [employer] Other 11-09-2021 09:05-0400 Body height 175.3 cm Fernando Hanna MD Work Phone: [facility] 11-09-2021 09:05-0400 Body temperature 97.39 [degF] Fernando Hanna MD Work Phone: [facility] 11-09-2021 09:05-0400 Body weight 63.32 kg Fernando Hanna MD Work Phone: [facility] 11-09-2021 09:05-0400 Diastolic blood pressure 68 mm[Hg] Fernando Hanna MD Work Phone: [facility] 11-09-2021 09:05-0400 Heart rate 67 /min Fernando Hanna MD Work Phone: [facility] 11-09-2021 09:05-0400 Respiratory rate 16 /min Fernando Hanna MD Work Phone: [facility] 11-09-2021 09:05-0400 SaO2% (BldA) [Mass fraction] 98 % Fernando Hanna MD Work Phone: [facility] 11-09-2021 09:05-0400 Systolic blood pressure 136 mm[Hg] Fernando Hanna MD Work Phone: [facility] 04-13-2021 16:30-0500 Body height 175.26 cm Kedar Paredes Other [employer] Other 04-13-2021 16:30-0500 Body mass index (BMI) [Ratio] 20.38 kg/m2 Kedar Paredes Other [employer] Other 04-13-2021 16:30-0500 Body weight 62.6 kg Kedar Paredes Other [employer] Other 09-26-2019 13:23-0400 BMI (Body Mass Index) 20.53 kg/m2 [facility] [employer] 09-26-2019 13:23-0400 Body Temperature 96.91 [degF] [facility] [employer] 09-26-2019 13:23-0400 Body weight 63.05 kg [facility] [employer] 09-26-2019 13:23-0400 BP Diastolic 84 mm[Hg] [facility] [employer] 09-26-2019 13:23-0400 BP Systolic 140 mm[Hg] [facility] [employer] 09-26-2019 13:23-0400 Pulse (Heart Rate) 61 /min [facility] [employer] 02-28-2019 10:40-0500 BP Diastolic 79 mm[Hg] [facility] [employer] 02-28-2019 10:40-0500 BP Systolic 118 mm[Hg] [employer] 02-28-2019 10:40-0500 Height 175.3 cm [employer] 02-28-2019 10:40-0500 Pulse (Heart Rate) 67 /min [employer] Encounters Encounter Date Encounter Type Care Provider Facility Start: 05-14-2024 End: 05-14-2024 Office outpatient visit 15 minutes Fernando Hanna MD Work Phone: Hematology/Oncology Comment on above: CLL (chronic lymphoc ytic leukemia) (HCC) (Primary Dx) Start: 05-14-2024 End: 05-14-2024 ambulatory FERNANDO HANNA Facility:[facility] Start: 05-02-2024 End: 05-02-2024 ambulatory [facility] Work Phone: Start: 05-02-2024 End: 05-02-2024 Patient encounter procedure [facility] Work Phone: Start: 03-09-2024 End: 03-09-2024 Bamboo flowsheet Rivera Saini DO Work Phone: [facility] Start: 03-09-2024 End: 03-09-2024 Bamboo flowsheet Rivera Saini DO Work Phone: [facility] Start: 03-09-2024 End: 03-09-2024 ambulatory RIVERA SAINI Not Available Start: 02-09-2024 End: 02-09-2024 Bamboo flowsheet Gunner Barrett MD Work Phone: [facility] Start: 02-09-2024 End: 02-09-2024 Bammisaelo flowscan Barrett MD Work Phone: [facility] Start: 02-09-2024 End: 02-09-2024 Office outpatient visit 15 minutes Gunner Barrett MD Work Phone: [facility] Comment on above: Seborrheic keratosis (Primary Dx); Lentigines Start: 02-09-2024 End: 02-09-2024 ambulatory GUNNER BARRETT Not Available Start: 01-06-2024 End: 01-06-2024 ambulatory [facility] Work Phone: Start: 01-06-2024 End: 01-06-2024 Patient encounter procedure [facility] Work Phone: Start: 11-25-2023 End: 11-25-2023 ambulatory [facility] Work Phone: Start: 11-25-2023 End: 11-25-2023 Patient encounter procedure [facility] Work Phone: Start: 11-08-2023 End: 11-08-2023 Bamboo [employer] Kylee Marie Didion CONSULTING SENIOR PRACTICE DIRECTOR-S Work Phone: [facility] Start: 11-08-2023 End: 11-08-2023 [employer] Kylee Marie Didion CONSULTING SENIOR PRACTICE DIRECTOR-S Work Phone: [facility] Start: 11-08-2023 End: 11-08-2023 Social Work Kylee Marie Didion CONSULTING SENIOR PRACTICE DIRECTOR-S Work Phone: [facility] Comment on above: LEO (generalized anx iety disorder) ([facility]/HCC) Start: 11-07-2023 End: 11-07-2023 Office outpatient visit 15 minutes Fernando Hanna MD Work Phone: Hematology/Oncology Comment on above: CLL (chronic lymphoc ytic leukemia) ([facility]) (Primary Dx) Start: 11-07-2023 End: 11-07-2023 ambulatory FERNANDO HANNA Facility:[facility] Start: 11-07-2023 Non-patient / Non-visit [facility] Work Phone: Start: 11-02-2023 End: 11-02-2023 ambulatory MICHOACANO MENDES Not Available Start: 10-26-2023 End: 10-26-2023 ambulatory KYLEE C DIDION Not Available Start: 10-19-2023 End: 10-19-2023 ambulatory [facility] Work Phone: Start: 10-19-2023 End: 10-19-2023 Patient encounter procedure [facility] Work Phone: Start: 09-26-2023 End: 09-26-2023 ambulatory KYLEE C DIDION Not Available Start: 2023 End: 2023 ambulatory MICHOACANO M MAG-NOSSEK Not Available Start: 09-05-2023 End: 09-05-2023 ambulatory JOJO A VISCI Not Available Start: 09-05-2023 End: 09-05-2023 ambulatory [facility] Work Phone: Start: 09-05-2023 End: 09-05-2023 Patient encounter procedure [facility] Work Phone: Start: 08-22-2023 End: 08-22-2023 ambulatory KYLEE C DIDION Not Available Start: 08-02-2023 End: 08-02-2023 ambulatory MICHOACANO M MAG-NOSSEK Not Available Start: 07-28-2023 End: 07-28-2023 ambulatory KYLEE C DIDION Not Available Start: 07-15-2023 End: 07-15-2023 ambulatory JOJO A VISCI Not Available Start: 06-30-2023 End: 06-30-2023 ambulatory KYLEE C DIDION Not Available Start: 06-20-2023 End: 06-20-2023 ambulatory [facility] Work Phone: Start: 06-20-2023 End: 06-20-2023 Patient encounter procedure [facility] Work Phone: Start: 06-20-2023 End: 06-20-2023 ambulatory MICHOACANO M MAG-NOSSEK Not Available Start: 06-17-2023 Non-patient / Non-visit [facility] Work Phone: Start: 06-13-2023 End: 06-13-2023 ambulatory KYLEE C DIDION Not Available Start: 05-25-2023 End: 05-25-2023 ambulatory KYLEE C DIDION Not Available Start: 05-23-2023 End: 05-23-2023 ambulatory MICHOACANO MENDES Not Available Start: 05-16-2023 End: 05-16-2023 ambulatory KYLEE C DIDION Not Available Start: 05-09-2023 End: 05-09-2023 ambulatory KYLEE C DIDION Not Available Start: 05-09-2023 End: 05-09-2023 Office outpatient visit 15 minutes Fernando Hanna MD Work Phone: Hematology/Oncology Comment on above: Chronic lymphocytic leukemia (HCC) (Primary Dx) Start: 05-09-2023 [facility]-patient / [facility] [employer] Work Phone: Start: 05-02-2023 Bamboo flowsheet Kylee C Didio n CONSULTING SENIOR PRACTICE DIRECTOR-S Work Phone: [facility] Start: 05-02-2023 Bamboo flowsheet Kylee C Didio n CONSULTING SENIOR PRACTICE DIRECTOR-S Work Phone: [facility] Start: 05-02-2023 End: 05-02-2023 ambulatory KYLEE C DIDION Not Available Start: 04-29-2023 Chart abstracting Kylee C Michelle on CONSULTING SENIOR PRACTICE DIRECTOR-S Work Phone: [facility] Start: 04-26-2023 End: 04-26-2023 ambulatory Schuyler Barlow Other [facility] [employer] Other Start: 04-26-2023 Telephone encounter Schuyler MACDONALD Y[facility] Start: 04-25-2023 End: 04-25-2023 ambulatory KYLEE C DIDION Not Available Start: 04-24-2023 Chart abstracting Kylee C Michelle on CONSULTING SENIOR PRACTICE DIRECTOR-S Work Phone: [facility] Start: 04-20-2023 End: 04-20-2023 ambulatory Schuyler Barlow Other [employer] Other Start: 04-20-2023 Office outpatient visit 15 minutes Schuyler Barlow [facility] Start: 04-20-2023 End: 04-20-2023 Patient encounter [facility] Start: 04-18-2023 End: 04-18-2023 ambulatory KYLEE C DIDION Not Available Start: 04-11-2023 End: 04-11-2023 ambulatory KYLEE C DIDION Not Available Start: 04-04-2023 End: 04-04-2023 ambulatory KYLEE C DIDION Not Available Start: 03-29-2023 End: 03-29-2023 ambulatory Schuylre Barlow Other [employer] Other Start: 03-29-2023 Telephone encounter Schuyler Barlow RENAE G Senior Director Of Strategy Start: 03-28-2023 End: 03-28-2023 ambulatory KYLEE C DIDION Not Available Start: 03-15-2023 End: 03-15-2023 ambulatory Schuyler Barlow Other [employer] Other Start: 03-15-2023 Telephone encounter Schuyler Barlow [facility] Start: 03-04-2023 End: 03-04-2023 ambulatory Schuyler Barlow Other [employer] Other Start: 03-04-2023 Telephone encounter Schuyler Barlow [facility] Start: 03-03-2023 End: 03-03-2023 ambulatory Daija Cain Other [employer] Other Start: 03-03-2023 Telephone encounter Daija MACDONALD [facility] Start: 02-28-2023 End: 02-28-2023 ambulatory Schuyler Barlow Other [employer] Other Start: 02-28-2023 Telephone encounter Schuyler Barlow [facility] Start: 02-25-2023 End: 02-25-2023 ambulatory Schuyler Barlow Other [employer] Other Start: 02-25-2023 Office outpatient visit 15 minutes Schuyler Ball [facility] Start: 02-18-2023 End: 02-18-2023 ambulatory Schuyler Barlow Other [employer] Other Start: 02-18-2023 Office outpatient visit 15 minutes Schuyler Ball [facility] Start: 01-31-2023 End: 01-31-2023 ambulatory Schuyler Barlow Other [employer] Other Start: 01-31-2023 Telephone encounter Schuyler Barlow [facility] Start: 01-21-2023 End: 01-21-2023 ambulatory Schuyler Barlow Other [employer] Other Start: 01-21-2023 Telephone encounter Schuyler Barlow [facility] Start: 01-12-2023 End: 01-12-2023 ambulatory Schuyler Barlow Other [employer] Other Start: 01-12-2023 Office outpatient visit 15 minutes Schuyler Ball [facility] Start: 12-21-2022 End: 12-21-2022 ambulatory Schuyler Barlow Other [employer] Other Start: 12-21-2022 Telephone encounter Schuyler Barlow [facility] Start: 12-17-2022 End: 12-17-2022 ambulatory Schuyler Barlow Other [employer] Other Start: 12-17-2022 Office outpatient visit 15 minutes Schuyler Barlow [facility] Start: 12-04-2022 Office outpatient visit 15 minutes Daija Cain [facility] [place] Start: 12-04-2022 End: 12-04-2022 ambulatory DO Schuyler Barlow Work Phone: [employer] Other Start: 12-04-2022 End: 12-04-2022 Patient encounter procedure DO Schuyler Barlow Work Phone: [facility] [place] Work Phone: Start: 10-20-2022 End: 10-20-2022 ambulatory Schuyler Barlow Other [employer] Other Start: 10-20-2022 Telephone encounter Schuyler MACDONALD [facility] Start: 08-19-2022 Telephone encounter Jake Beverlyjules RENAE G [facility] Start: 08-19-2022 End: 08-19-2022 Admission to same day surgery center DO Schuyler Barlow Work Phone: [facility] Work Phone: Start: 08-19-2022 End: 08-19-2022 ambulatory DO Schuyler Barlow Work Phone: [facility] Work Phone: Start: 06-23-2022 End: 06-23-2022 ambulatory Schuyler Barlow Other [employer] Other Start: 06-23-2022 Patient encounter procedure Schuyler Barlow [facility] Start: 05-27-2022 End: 05-27-2022 ambulatory Schuyler Barlow Other [employer] Other Start: 05-27-2022 Telephone encounter Schuyler MACDONALD [facility] Start: 05-26-2022 End: 05-26-2022 ambulatory Jake Mireles Other [employer] Other Start: 05-26-2022 Patient encounter procedure Jake Mireles [facility] Start: 05-10-2022 End: 05-10-2022 ambulatory Citlaly Cole APPLICATION SUPPORT ANALYST.ART SALES CONSULTANT Work Phone: Hematology/Oncology Comment on above: Chronic lymphocytic leukemia (HCC) (Primary Dx) Start: 05-10-2022 End: 05-10-2022 Patient encounter procedure Citlaly Cole APPLICATION SUPPORT ANALYST.ART SALES CONSULTANT Work Phone: [place] Start: 05-07-2022 Telephone encounter Citlaly galeano APRN.ART SALES CONSULTANT Work Phone: Hematology/Oncology Comment on above: Lab Orders Start: 02-07-2022 End: 02-07-[address] DORITA GRANT Facility:[facility] Start: 12-27-2021 End: 12-27-2021 ambulatory Amy Hernandez Other [employer] Other Start: 12-27-2021 Office outpatient visit 15 minutes Amy Hernandez [facility] [place] Start: 11-09-2021 End: 11-09-2021 ambulatory Fernando Hanna MD Work Phone: Hematology/Oncology Comment on above: Chronic lymphocytic leukemia (HCC) (Primary Dx) Start: 11-09-2021 End: 11-09-2021 Patient encounter procedure Fernando Hanna MD Work Phone: [facility] Start: 09-23-2021 End: 09-24-[address] SCHUYLER BARLOW Facility:[facility] Start: 08-12-2021 End: 09-03-[address] SCHUYLER BARLOW Facility:[facility] Start: 06-19-2021 End: 06-20-[address] KELLE ROSALES Facility:[facility] Start: 06-17-2021 Adult health examination Schuyler Barlow Other [employer] Other Start: 04-30-2021 End: 04-30-2021 ambulatory RIVERA SAINI Facility:[facility] Start: 04-13-2021 End: 04-13-2021 ambulatory Kedar Paredes Other [employer] Other Start: 04-13-2021 Office outpatient visit 25 [...] Patient encounter procedure Rodolfo Ross Work Phone: [facility] Comment on above: 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); [facility] Start: 02-28-2019 End: 02-28-2019 Patient encounter procedure Rodolfo Ross Work Phone: [facility] Comment on above: 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); [facility] Start: 08-24-2017 Ambulatory RODOLFO Vogelta On [facility] Start: 01-25-2017 Ambulatory RODOLFO ROSS [employer] [facility] Procedures Date Procedure Procedure Detail Performing Clinician Start: 03-09-2024 End: 03-09-2024 Oph medical xm&eval comprhnsv estab pt 1/> Bilateral posterior capsular opacification Rivera Saini DO Work Phone: Comment on above: Bilateral posterior capsular opacification (Primary Dx); Keratoconjunctivitis sicca of both eyes not specified as Sjogren's; Blepharitis of upper and lower eyelids of both eyes, unspecified type Start: 12-04-2022 X-ray of right foot DO Schuyler Barlow Work Phone: Start: 08-19-2022 Colonoscopy DO Ericka Barlow Work Phone: Start: 10-16-2021 Mammography Kylee Martinez on CONSULTING SENIOR PRACTICE DIRECTOR-S Work Phone: Start: 10-29-2020 Adult depression screening assessment Fernando Hanna MD Work Phone: Start: 11-18-2015 Pre-surgery evaluation Schuyler Barlow Other Start: 11-18-2015 Preoperative cardiovascular examination Schuyler Barlow Other Depression screening Ericka Barlow Other Plan of Treatment Date Care Activity Detail Author Start: 11-06-2026 Diabetes Screening Diabetes Screenin g [facility] Start: 05-09-2026 Diabetes Screening Diabetes Screenin g [facility] Start: 05-10-2025 DIABETES SCREEN DIABETES SCREEN [facility] Start: 02-07-2025 End: 02-07-2025 Patient encounter procedure 02/07/2025 10:35 AM EST Office Visit [facility] [address] [place] [id number] Gunner Barrett MD [address] [place] [address] [facility] Start: 11-09-2024 DIABETES SCREEN DIABETES SCREEN [facility] Start: 11-05-2024 End: 11-05-2024 Follow-up encounter 11/05/2024 10:20 AM EDT Visit (SP) Office Hematology/Oncology [address] [place] [address] Fernando Hanna MD [address] [place] [address] 6 month follow up Hematology/Oncology Comment on above: 6 month follow up Start: 11-05-2024 End: 11-05-2024 Patient encounter procedure 11/05/2024 10:00 AM EDT Office Visit [facility] [address] [place] [address] 6 month follow up [facility] Comment on above: 6 month follow up Start: 07-25-2024 End: 07-25-2024 Patient encounter procedure 07/25/2024 10:45 AM EDT Office Visit [facility] [address] [place] [address] Jojo Ramesh DO [address] [place] [address] [facility] Start: 06-07-2024 Covid-19 Vaccine (7 - Pfizer risk season) Covid-19 Vaccine (7 - Pfizer risk season) [facility] Start: 05-14-2024 End: 05-14-2024 Follow-up encounter 05/14/2024 10:45 AM EST Visit (SP) Office Hematology/Oncology [address] [place] [address] Fernando Hanna MD [address] [place] [address] 6 month follow up Hematology/Oncology Comment on above: 6 month follow up Start: 05-14-2024 End: 05-14-2024 Patient encounter procedure 05/14/2024 10:30 AM EST Office Visit [facility] [address] [place] [address] 6 month follow up [facility] Comment on above: 6 month follow up Start: 03-21-2024 Advance Directive Discussion Advance Directive Discussion [facility] Start: 03-09-2024 End: 03-09-2024 Patient encounter procedure 03/09/2024 8:45 AM EST Office Visit [facility] [address] [place] [id number] Rivera Saini DO [address] [place] [address] Arrived [facility] Comment on above: Arrived Start: 02-09-2024 End: 02-09-2024 Patient encounter procedure [facility] Comment on above: Arrived Start: 12-21-2023 End: 12-21-2023 Patient encounter procedure 12/21/2023 10:00 AM EDT Office Visit [facility] [address] [place] [id number] Michoacano Mendes, APPLICATION SUPPORT ANALYST-MACHINERY MECHANIC [address] [place] [address] [facility] Start: 12-05-2023 End: 12-05-2023 Social Work 12/05/2023 11:00 AM EDT Social Work [facility] [address] [place] [address] Kylee Smith, CONSULTING SENIOR PRACTICE DIRECTOR-S [address] [place] [address] [facility] Start: 11-23-2023 End: 11-23-2023 Social Work 11/23/2023 10:00 AM EDT Social Work [facility] [address] [place] [address] Kylee Smith, CONSULTING SENIOR PRACTICE DIRECTOR-S [address] [place] [address] [facility] Start: 11-20-2023 Influenza vaccination Influenza Vacc ine (#1) [facility] Start: 11-08-2023 End: 11-08-2023 Social Work 11/08/2023 10:00 AM EDT Social Work [facility] [address] [place] [address] Kylee Smith, CONSULTING SENIOR PRACTICE DIRECTOR-S [address] [place] [address] [facility] Comment on above: Arrived Start: 09-22-2023 RSV Vaccine (1 - 1-d ose 75+ series) RSV Vaccine (1 - 1-dose 75+ series) [facility] Start: 07-11-2023 End: 07-11-2023 Patient encounter procedure [facility] [facility] Start: 06-09-2023 End: 06-09-2023 Patient encounter procedure 06/09/2023 10:30 AM EDT Office Visit [facility] [address] [place] [address] Jojo Ramesh, DO [address] [place] [address] [facility] Start: 05-09-2023 End: 05-09-2023 Social Work 05/09/2023 3:00 PM EST Social Work [facility] [address] [place] [address] Kylee Smith, CONSULTING SENIOR PRACTICE DIRECTOR-S [address] [place] [address] [facility] Start: 05-02-2023 End: 05-02-2023 Social Work [facility] Comment on above: Arrived Start: 04-25-2023 End: 04-25-2023 Social Work 04/25/2023 12:00 PM EST Social Work [facility] [address] [place] [address] Kylee Smith, CONSULTING SENIOR PRACTICE DIRECTOR-S [address] [place] [address] [facility] Start: 03-21-2023 Advance Directive Discussion Advance Directive Discussion [facility] Start: 03-21-2023 Depression Assessment Depression Ass essment [facility] Start: 02-16-2023 Covid-19 Vaccine ( season) Covid-19 Vaccine ( season) [facility] Start: 10-16-2022 Screening for malign ant neoplasm of breast [facility] Start: 08-19-2022 [facility] Start: 03-21-2022 ADVANCE DIRECTIVE DISCUSSION ADVANCE DIRECTIVE DISCUSSION [facility] Start: 03-21-2022 DEPRESSION ASSESSMENT DEPRESSION ASS ESSMENT [facility] Start: 11-19-2021 Influenza vaccination INFLUENZA (#1) [facility] Start: 10-29-2021 Adult depression screening assessment DEPRESSION SCREENING [facility] Start: 04-04-2021 COVID-19 VACCINE (4 - Booster for Pfizer series) COVID-19 VACCINE (4 - Booster for Pfizer series) [facility] Start: 03-21-2021 ADVANCE DIRECTIVE DISCUSSION ADVANCE DIRECTIVE DISCUSSION [facility] Start: 11-20-2019 Influenza vaccination INFLUENZA VACC INE (#1) [facility] Start: 11-19-2018 Influenza vaccination INFLUENZA VACC INE (#1) [facility] Start: 05-06-2018 Pneumococcal Vaccine : 65+ Years (2 - PCV) Pneumococcal Vaccine: 65+ Years (2 - PCV) [facility] Start: 05-06-2018 Pneumococcal Vaccine : 65+ Years (2 of 2 - PCV) Pneumococcal Vaccine: 65+ Years (2 of 2 - PCV) [facility] Start: 05-06-2018 PNEUMOCOCCAL: 65+ (2 - PCV) PNEUMOCOCCAL: 65+ (2 - PCV) [facility] Start: 2013 BONE DENSITY BONE DENSITY [facility] Start: 2013 Pneumococcal vaccination PNEUMOCOCCAL VACCINE SERIES (1 of 2 - PCV13) [facility] Start: 2013 Screening for osteoporosis Bone Density Screening [facility] Start: 03-22-2013 SHINGRIX VACCINE (1 of 2) SHINGRIX VACCINE (1 of 2) [facility] Start: 2008 RSV Vaccine (1 - 1-d ose 60+ series) RSV Vaccine (1 - 1-dose 60+ series) [facility] Start: 1998 Colonoscopy [facility] Start: 1998 Zoster vaccine hzv l nelida for subcutaneous use ZOSTER (SHINGLES) VACCINE (1 of 2) [facility] Start: 1993 COLOGUARD (FIT-DNA) COLOGUARD (FIT-D NA) [facility] Start: 1993 Colonoscopy COLONOSCOPY [facility] Start: 1993 COLORECTAL CANCER SCREENING COLORECTAL CANCER SCREENING [facility] Start: [address] COLONOGRAPHY [facility] Start: 1993 FECAL OCCULT BLOOD FECAL OCCULT BLOO D [facility] Start: 1993 Lipid panel Lipid Screening [facility] Start: 1993 LIPID SCREEN LIPID SCREEN [facility] Start: 1993 Screening for malign ant neoplasm of colon [facility] Start: 1993 SIGMOIDOSCOPY SIGMOIDOSCOPY [facility] Start: 1988 Fasting lipid profile LIPID SCREENIN G [facility] Start: 1988 Mammography MAMMOGRAM [facility] Start: 1988 Screening mammography MAMMOGRA M SCREENING DISCUSSION [facility] Start: 1969 Screening for malign ant neoplasm of cervix [facility] Start: 09-22-1967 Third diphtheria, tetanus and acellular pertussis (DTaP) vaccination TDAP (ADULT) [facility] Start: 09-22-1967 Urine microalbumin profile [facility] Start: 1966 Anxiety Screening Anxiety Screening [facility] Start: 1966 Depression Screening Depression Scre ening [facility] Start: 1966 HEPATITIS C SCREENING HEPATITIS C [facility] Start: 1966 Hepatitis C screening Hepatitis C [facility] Start: 1966 Tetanus vaccination [facility] Start: 1948 Hepatitis C antibody , confirmatory test HEPATITIS C VIRUS SCREENING [facility] Start: 1948 Screening for malign ant neoplasm of colon [facility] Start: 1948 Screening for osteoporosis DEXA SCAN DISCUSSION [facility] End: 05-10-2023 CBC W Auto Differential panel - Blood CBC + DIFF Lab Routine Chronic lymphocytic leukemia (HCC) Every 3 months for 4 Occurrences starting 05/10/2022 until 05/10/2023, 1 completed [facility] Work Phone: Comment on above: Every 3 months for 4 Occurrences starting 05/10/2022 until 05/10/2023, 1 completed CBC W Auto Different ial panel - Blood CBC + DIFF Lab Routine Chronic lymphocytic leukemia (HCC) 05/10/2022 9:01 AM EST [facility] Work Phone: End: 05-08-2024 CBC W Auto Differential panel - Blood CBC + DIFF Lab Routine Chronic lymphocytic leukemia (HCC) Every 6 months for 3 Occurrences starting 05/09/2023 until 05/08/2024 [facility] Work Phone: Comment on above: Every 6 months for 3 Occurrences starting 05/09/2023 until 05/08/2024 End: 11-06-2024 CBC W Auto Differential panel - Blood COMPLETE BLOOD COUNT AND DIFFERENTIAL Lab Routine CLL (chronic lymphocytic leukemia) (HCC) Every 6 months for 3 Occurrences starting 11/07/2023 until 11/06/2024 [facility] Comment on above: Every 6 months for 3 Occurrences starting 11/07/2023 until 11/06/2024 End: 05-14-2025 CBC W Auto Differential panel - Blood COMPLETE BLOOD COUNT AND DIFFERENTIAL Lab Routine CLL (chronic lymphocytic leukemia) (HCC) Every 6 months for 3 Occurrences starting 05/14/2024 until 05/14/2025 [facility] Comment on above: Every 6 months for 3 Occurrences starting 05/14/2024 until 05/14/2025 End: 05-10-2023 Comprehensive metabolic 2000 panel - Serum or Plasma COMP METABOLIC PANEL Lab Routine Chronic lymphocytic leukemia (HCC) Every 3 months for 4 Occurrences starting 05/10/2022 until 05/10/2023, 1 completed [facility] Work Phone: Comment on above: Every 3 months for 4 Occurrences starting 05/10/2022 until 05/10/2023, 1 completed End: 05-08-2024 Comprehensive metabolic 2000 panel - Serum or Plasma COMP METABOLIC PANEL Lab Routine Chronic lymphocytic leukemia (HCC) Every 6 months for 3 Occurrences starting 05/09/2023 until 05/08/2024 [facility] Work Phone: Comment on above: Every 6 months for 3 Occurrences starting 05/09/2023 until 05/08/2024 End: 11-06-2024 Comprehensive metabolic 2000 panel - Serum or Plasma COMPREHENSIVE METABOLIC PANEL Lab Routine CLL (chronic lymphocytic leukemia) (HCC) Every 6 months for 3 Occurrences starting 11/07/2023 until 11/06/2024 [facility] Comment on above: Every 6 months for 3 Occurrences starting 11/07/2023 until 11/06/2024 End: 05-14-2025 Comprehensive metabolic 2000 panel - Serum or Plasma COMPREHENSIVE METABOLIC PANEL Lab Routine CLL (chronic lymphocytic leukemia) (HCC) Every 6 months for 3 Occurrences starting 05/14/2024 until 05/14/2025 [facility] Comment on above: Every 6 months for 3 Occurrences starting 05/14/2024 until 05/14/2025 End: 05-10-2023 Lactate dehydrogenase [Enzymatic activity/volume] in Serum or Plasma LD LACTATE DEHYDRO Lab Routine Chronic lymphocytic leukemia (HCC) Every 3 months for 4 Occurrences starting 05/10/2022 until 05/10/2023, 1 completed [facility] Work Phone: Comment on above: Every 3 months for 4 Occurrences starting 05/10/2022 until 05/10/2023, 1 completed End: 05-08-2024 Lactate dehydrogenase [Enzymatic activity/volume] in Serum or Plasma LD LACTATE DEHYDRO Lab Routine Chronic lymphocytic leukemia (HCC) Every 6 months for 3 Occurrences starting 05/09/2023 until 05/08/2024 [facility] Work Phone: Comment on above: Every 6 months for 3 Occurrences starting 05/09/2023 until 05/08/2024 End: 11-06-2024 Lactate dehydrogenase [Enzymatic activity/volume] in Serum or Plasma LACTATE DEHYDROGENASE Lab Routine CLL (chronic lymphocytic leukemia) (HCC) Every 6 months for 3 Occurrences starting 11/07/2023 until 11/06/2024 [facility] Comment on above: Every 6 months for 3 Occurrences starting 11/07/2023 until 11/06/2024 End: 05-14-2025 Lactate dehydrogenase [Enzymatic activity/volume] in Serum or Plasma LACTATE DEHYDROGENASE Lab Routine CLL (chronic lymphocytic leukemia) (HCC) Every 6 months for 3 Occurrences starting 05/14/2024 until 05/14/2025 [facility] Work Phone: Comment on above: Every 6 months for 3 Occurrences starting 05/14/2024 until 05/14/2025 Patient Education Colon polyps H emorrhoids (DC) Diverticulosis (DC) [facility] Work Phone: End: 05-10-2023 Urate [Mass/volume] in Serum or Plasma URIC ACID BLOOD Lab Routine Chronic lymphocytic leukemia (HCC) Every 3 months for 4 Occurrences starting 05/10/2022 until 05/10/2023, 1 completed [facility] Work Phone: Comment on above: Every 3 months for 4 Occurrences starting 05/10/2022 until 05/10/2023, 1 completed End: 11-06-2024 Urate [Mass/volume] in Serum or Plasma URIC ACID Lab Routine CLL (chronic lymphocytic leukemia) (HCC) Every 6 months for 3 Occurrences starting 11/07/2023 until 11/06/2024 [facility] Work Phone: Comment on above: Every 6 months for 3 Occurrences starting 11/07/2023 until 11/06/2024 End: 05-14-2025 Urate [Mass/volume] in Serum or Plasma URIC ACID Lab Routine CLL (chronic lymphocytic leukemia) (HCC) Every 6 months for 3 Occurrences starting 05/14/2024 until 05/14/2025 [facility] Comment on above: Every 6 months for 3 Occurrences starting 05/14/2024 until 05/14/2025 [facility] Immunizations Immunization Date Immunization Notes Care Provider Aster juarez 01-02-2024 influenza, high dose seasonal, preservative-free Fernando Hanna MD Work Phone: [facility] 01-02-2024 influenza virus vaccine, unspecified formulation Gunner Barrett MD Work Phone: [facility] 01-05-2023 influenza (aIIV4) vaccine, age 65+ yr, quadrivalent, PF (FLUAD QUAD) Fernando Hanna MD Work Phone: [facility] 01-05-2023 influenza virus vaccine, unspecified formulation Fernando Hanna MD Work Phone: [facility] 12-14-2021 influenza, high dose seasonal, preservative-free Schuyler Barlow Other [employer] [facility] [employer] Other 12-14-2021 influenza (aIIV4) vaccine, age 65+ yr, quadrivalent, PF (FLUAD QUAD) Fernando Hanna MD Work Phone: [facility] 12-14-2021 influenza virus vaccine, split virus (incl. purified surface antigen) Schuyler Barlow Other [employer] Other 12-14-2021 influenza virus vaccine, unspecified formulation [facility] 11-27-2021 COVID-19 Pfizer (bivalent) Schuyler Barlow Other [facility] 01-10-2021 COVID-19 vaccine, ag e 12+ yr (PFIZER-BIONTECH - PURPLE TOP) Fernando Hanna MD Work Phone: [facility] 12-17-2020 influenza virus vaccine, split virus (incl. purified surface antigen) Schuyler Barlow Other [employer] Other 12-17-2020 influenza virus vaccine, unspecified formulation [facility] 12-17-2020 Seasonal trivalent influenza vaccine, adjuvanted, preservative free Fernando Hanna MD Work Phone: [facility] 05-14-2020 COVID-19 Vaccine Pfi zer - Documentation Purposes Only Schuyler Barlow Other [facility] 04-23-2020 COVID-19 vaccine, ag e 12+ yr (PFIZER-BIONTECH - PURPLE TOP) Fernando Hanna MD Work Phone: [facility] 12-06-2019 influenza virus vaccine, split virus (incl. purified surface antigen) Schuyler Barlow Other [employer] Other 12-06-2019 influenza virus vaccine, unspecified formulation [facility] 01-10-2019 influenza, high dose seasonal, preservative-free Fernando Hanna MD Work Phone: [facility] 01-10-2019 influenza virus vaccine, unspecified formulation [facility] 02-01-2018 influenza, seasonal, injectable, preservative free Fernando Hanna MD Work Phone: [facility] 02-01-2018 influenza virus vaccine, unspecified formulation [facility] 01-09-2018 influenza virus vaccine, split virus (incl. purified surface antigen) Schuyler Barlow Other [employer] Other 01-09-2018 influenza virus vaccine, unspecified formulation [facility] 01-09-2018 Seasonal trivalent influenza vaccine, adjuvanted, preservative free Fernando Hanna MD Work Phone: [facility] 05-06-2017 pneumococcal polysaccharide vaccine, 23 valent Fernando Hanna MD Work Phone: [facility] 01-06-2017 influenza virus vaccine, split virus (incl. purified surface antigen) Schuyler Barlow Other [employer] Other 01-06-2017 influenza virus vaccine, unspecified formulation [facility] 01-06-2017 influenza, high dose seasonal, preservative-free Fernando Hanna MD Work Phone: [facility] 12-30-2015 influenza virus vaccine, split virus (incl. purified surface antigen) Schuyler Barlow Other [employer] [facility] [employer] Other 12-30-2015 influenza virus vaccine, unspecified formulation [facility] 12-30-2015 influenza, high dose seasonal, preservative-free Fernando Hanna MD Work Phone: [facility] 01-02-2015 pneumococcal conjuga te vaccine, 13 valent Schuyler Barlow Other [facility] 01-02-2015 pneumococcal Conjuga te, unspecified formulation; Translations: [Need for prophylactic vaccination against Streptococcus pneumoniae (pneumococcus)] Schuyler Barlow Other [employer] [facility] [employer] Other 01-25-2013 zoster vaccine, live Fernando russell MD Work Phone: [facility] Payers Date Payer Category Payer Medicaid [employer] MED[employer]ARE A DVANTAGE [id number] 2017 Unknown PRE PAID ELECTIV E SELF PAY PRE PAID ELECTIVE SELF PAY [id number] 2017-Present [id number]. [id number] 2017 Unknown PRE PAID ELECTIV E SELF PAY PRE PAID ELECTIVE SELF PAY xxxxxxxxx 2017-Present xxxxxxxxx [id number]. [id number] 2014 Medicare [id number]. [id number] 2014 Medicare (Managed Care) [employer] [place] [id number]. [id number] 1959 Medicare [id number] 2..[id number] 1959 Medicare [id number] 1959 Medicare [id number] 1959 Self-pay 1948 Unknown [id number] .840.1.089662.3.579.2. 59 1948 Unknown [id number] .840.1.632710.3.579.2. 59 1948 Unknown [id number] 2.16840.1.212145.3.579.2. 593 1948 Unknown [id number] 2.16840.1.324266.3.579.2. 593 1948 Unknown [id number] 2.16840.1.381683.3.579.2. 593 1948 Unknown [id number] 2.16840.1.294112.3.579.2. 593 1948 Unknown [id number] 2.16.840.1.437124.3.579.2. 593 1948 Unknown [id number] 2.16.840.1.817158.3.579.2. 593 1948 Unknown [id number] 2.16.840.1.992828.3.579.2. 593 1948 Unknown [id number] 2.16.840.1.584555.3.579.2. 1259 1948 Unknown [id number] 2.16.840.1.153047.3.579.2. 125 1948 Unknown [id number] 2.16.840.1.426770.3.579.2. 125 1948 Unknown [id number] 2.16840.1.322645.3.579.2. 125 1948 Unknown [id number] 2.16840.1.859405.3.579.2. 125 1948 Unknown [id number] 2.16840.1.991795.3.579.2. 125 1948 Unknown [id number] 2.16840.1.358428.3.579.2. 1259 1948 Unknown [id number] 2.16840.1.492360.3.579.2. 125 1948 Unknown [id number] 2.16840.1.117485.3.579.2. 1259 1948 Unknown [id number] 2.16.840.1.665502.3.579.2. 125 1948 Unknown [id number] 2.16.840.1.986671.3.579.2. 1259 1948 Unknown [id number] 2.16.840.1.658285.3.579.2. 125 1948 Unknown [id number] 2.16.840.1.680033.3.579.2. 125 1948 Unknown [id number] 2.16.840.1.161994.3.579.2. 1258 1948 Unknown [id number] 2.16.840.1.620639.3.579.2. 1258 1948 Unknown [id number] 2.16.840.1.223331.3.579.2. 1258 1948 Unknown [id number] 2.16.840.1.334580.3.579.2. 1258 1948 Unknown [id number] 2.16.840.1.745615.3.579.2. 1258 1948 Unknown [id number] 2.16.840.1.726106.3.579.2. 1258 1948 Unknown [id number] 2.16840.1.989189.3.579.2. 1258 1948 Unknown [id number] 2.16.840.1.262663.3.579.2. 1258 1948 Unknown [id number] 2.16840.1.506876.3.579.2. 1258 1948 Unknown [id number] 2.16.840.1.193788.3.579.2. 1258 1948 Unknown [id number] 2.16840.1.006323.3.579.2. 1258 1948 Unknown [id number] 2.16.840.1.165678.3.579.2. 1258 1948 Unknown [id number] 2.16.840.1.317206.3.579.2. 1259 Unknown [id number] 2.16.840.1.575910.3.579.2. 593 Unknown [id number] 2.16.840.1.674306.3.579.2. 531 Unknown [id number] 2.16840.1.319717.3.579.2. 531 Social History Date Type Detail Facility Start: 02-28-2019 End: 09-26-2019 Tobacco smoking status NHIS Light tobacco smoker [facility] History of tobacco use Cigarette Smoker [facility] Start: 09-26-2019 End: 11-08-2022 Cigarettes smoked current (pack per day) - Reported [facility] Start: 09-26-2019 End: 11-09-2021 Tobacco use and exposure Never used [facility] Start: 1950 Sex Assigned At Not on file [facility] Start: 11-08-2022 End: 02-03-2023 Sex Assigned At [facility] Start: 11-09-2021 Tobacco smoking stat us OKIS Ex-smoker [facility] History of tobacco use Current smoker [facility] History of tobacco use Passive smoker [facility] Start: 11-09-2021 End: 05-14-2024 Alcohol intake Current drinker of alcohol (finding) [facility] Start: 11-09-2021 Tobacco Comment Quit 10/2016 [facility] Start: 10-30-2021 End: 11-09-2021 Exposure to SARS-CoV-2 (event) Not sure [facility] Start: 08-19-2022 End: 08-19-2022 Tobacco smoking status OKIS Current some day smoker [facility] Start: 1950 Sex Assigned At Female F [facility] Start: 04-24-2023 End: 04-29-2023 Alcohol intake Lifetime non-drinker (finding) [facility] Start: 01-22-2023 Alcohol Comment caffeine: 1-2 cups per day [facility] Adult Depression Screening Assessment [address] [place] [address] How often to you hav e a drink containing alcohol? 4 or more times a week [facility] How many standard drinks containing alcohol do you have on a typical day? 3 or 4 [facility] How often do you hav e 6 or more drinks on 1 occasion? Less than monthly [facility] Start: 05-23-2023 Alcohol Comment caffeine: 5 diet cok es [facility] Start: 05-02-2024 Sex Female (finding) [facility] Goals Date Patient Goal Desired Activity /State Functional Status Date Assessment Result Facility 09-06-2014 Are you deaf, or do you have serious difficulty hearing No 09/06/2014 1:05 PM EDT [facility] No [facility] 09-06-2014 Are you blind, or do you have serious difficulty seeing, even when wearing glasses No 09/06/2014 1:05 PM EDT Crowley Deisy No [facility] 09-06-2014 Do you have serious difficulty walking or climbing stairs No 09/06/2014 1:05 PM EDT Ke[facility] Deisy No [facility] 09-06-2014 Do you have difficul ty dressing or bathing No 09/06/2014 1:05 PM EDT Keo Deisy No [facility] 09-06-2014 Because of a physica l, mental, or emotional condition, do you have difficulty doing errands alone such as visiting a physician's office or shopping No 09/06/2014 1:05 PM EDT [place] De[facility] Fatoumata [facility] Mental Status Date Assessment Result Facility 09-06-2014 Because of a physica l, mental, or emotional condition, do you have serious difficulty concentrating, remembering, or making decisions No 09/06/2014 1:05 PM EDT Ke[facility] Deisy No [facility] Clinical Notes 04-13-2021 to 05-14-2024 Patient InstructionsFernando Hanna MD - 05/14/2024 10:40 AM Navneet Saini DO - 03/09/2024 8:45 AM Darlene Barrett MD - 02/09/2024 2:00 PM ESTPatient Instructions Note Date & Type Note Facility 05-14-2024 Instructions Fernando Hanna MD - 05/14/2024 11:12 AM EST RTC in 6 months Lab draw same day Continue following with Dr. Barlow documented in this encounter [facility] 05-14-2024 History of Present illness Narrative Images from the original note were not included. NAME: Nadeen Oquendo [facility] NO.: [id number] DATE OF SERVICE: May 14, 2024 (Jaime) Some elements in this clinic note that are critical to medical decision making have been carefully reviewed and included from a prior clinic note dated: November 07, 2023 (Jaime) Referring Provider: Dr. Schuyler Barlow [...] - Diagnosed with CLL Updated Visit, May 14, 2024: Ashley returns and continues to do well. Following with Dr. Barlow for pulmonary nodules. Labs stable with no indications to consider treatment. Updated Visit, November 07, 2023: Ashley returns [...] and labs are stable. 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 [...] in the next week. 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 Updated Visit, June 29, 2019: Naeden Oquendo is a 68 year old female [...] PERFORMANCE STATUS: 0 PHYSICAL EXAMINATION: Vitals: BP 140/74 Pulse 60 Temp (Src) 97.3 (Temporal) Resp 16 Ht 5' 9.016 (1.75m) Wt 138 lb 3.7 oz (62.7kg) SpO2 100% BMI 20.40 kg/(m^2). Body surface area is 1.75 meters squared. [...] Take 40 mg by mouth once daily. sertraline (ZOLOFT) 50 mg tablet Take 75 mg by mouth once daily. (Patient not taking: Reported on 05/14/2024) busPIRone (BUSPAR) 15 mg tablet TAKE 1 TABLET EVERY DAY FOR THE FIRST WEEK THEN INCREASE TO TWICE A DAY (Patient not taking: Reported on 05/14/2024) LABORATORY VALUES: WBC (k/uL) Date Value 05/14/2024 30.44 (H) RBC (m/uL) Date Value 05/14/2024 4.12 Hemoglobin (g/dL) Date Value 05/14/2024 13.1 Hematocrit (%) Date Value 05/14/2024 39.2 MCV (fL) Date Value 05/14/2024 95.1 MCH (pg) Date Value 05/14/2024 31.8 MCHC (g/dL) Date Value 05/14/2024 33.4 RDW-CV (%) Date Value 05/14/2024 13.5 Platelet Count (k/uL) Date Value 05/14/2024 180 MPV (fL) Date Value 05/14/2024 9.3 Glucose (mg/dL) Date Value 11/07/2023 101 (H) [...] lymphocytic leukemia) (HCC) (primary encounter diagnosis) Plan: LACTATE DEHYDROGENASE, COMPLETE BLOOD COUNT AND DIFFERENTIAL, COMPREHENSIVE METABOLIC PANEL, URIC ACID PAST MEDICAL HISTORY Diagnosis Date Anxiety CLL [...] Topics Alcohol use: Yes Drug use: No History reviewed. No pertinent family history. I spent a total of 20 minutes on the date of service which included preparing to see the patient, [id number] patient care, completing clinical documentation, performing a medically appropriate examination, counseling and educating the patient/family/caregiver, ordering medications, tests, or procedures, independently interpreting results (not separately reported), communicating results to the patient/family/caregiver, and care coordination (not separately reported). Fernando Hanna MD, CPE Hematology and Oncology Services Provided at: [place], [place] CC: Schuyler Barlow MD [address] [facility] [id number] documented in this encounter [facility] 05-14-2024 Note HNO ID: [id number] Author: FERNANDO HANNA MD Service: ? Author Type: Physician Type: Progress Notes Filed: 05/14/2024 20:13 Note Text: NAME: Nadeen Oquendo CLINIC NO.: [id number] DATE [facility]: [facility] Some elements in this clinic note that are critical to medical decision making have been carefully reviewed and included from a prior clinic note dated: November 07, 2023 (Jaime) Referring Provider: Dr. Schuyler Barlow [...] - Diagnosed with CLL Updated Visit, May 14, 2024: Ashley returns and continues to do well. Following with Dr. Barlow for pulmonary nodules. Labs stable with no indications to consider treatment. Updated Visit, November 07, 2023: Ashley returns [...] and labs are stable. 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 [...] in the next week. 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 [...] PERFORMANCE STATUS: 0 PHYSICAL EXAMINATION: Vitals: BP 140/74 Pulse 60 Temp (Src) 97.3 (Temporal) Resp 16 Ht 5' 9.016 (1.75m) Wt 138 lb 3.7 oz (62.7kg) SpO2 100% BMI 20.40 kg/(m2). Body surface area is 1.75 meters squared. Exam limited to gross visualization where appropriate. Gen.: This is an age-appropriate patient in no acute distress. Head: Appears atraumatic with no visible lesions. Eyes: Pupils equally round and reactive to light, extraocular muscles are intact. Neck: Supple. Respiratory: Appears to be res (more content not included)... [facility] 03-09-2024 History of Present illness Narrative Images from the original note were not included. Subjective Patient ID: Nadeen Oquendo is a 73 y.o. female. Chief Complaint Blurred Vision HPI Blurred Vision In right eye. Onset was gradual. Vision is blurred and hazy. Severity is moderate. It is worse at random times. Since onset it is gradually worsening. Treatments tried include eye drops and artificial tears. Comments Pt states she has been having blurred vision out of right eye (OD) for a while now, floater in right eye (OD) , states it is worse outside in the sun, pt also has puffiness under right eye (OD), gritty feeling , uses trianicinolone acetonide lotion on lid bid am and pm, lastacaft prn, systane complete prn, systane zatidor prn. Last edited by JAYLEN Teran on 03/09/2024 8:56 AM. No current outpatient medications on file. (Ophthalmic Agents) No current facility-administered medications for this visit. (Ophthalmic Agents) Current Outpatient Medications (Other) Medication Sig Dispense Refill ALPRAZolam (Xanax) 0.25 MG tablet Take 0.25 mg by mouth as needed at bedtime for anxiety. nadolol (Corgard) 20 MG tablet Take 20 mg by mouth in the morning and 20 mg before bedtime. pantoprazole (ProtoNix) 20 MG EC tablet Take 20 mg by mouth in the morning. Take before meals. Do not crush, chew, or split. . sertraline (Zoloft) 50 MG tablet Take 1.5 tablets (75 mg) by mouth Daily (Patient not taking: Reported on 02/09/2024) 45 tablet 2 No current facility-administered medications for this visit. (Other) Past Medical History: Diagnosis Date Actinic keratosis Anxiety Chronic lymphocytic leukemia ([facility]) 07/2014 GERD (gastroesophageal reflux disease) Osteopenia STD (sexually transmitted disease) Allergies Allergen Reactions Bee Venom Unknown Review of Systems Constitutional: Negative. HENT: Negative. Eyes: Negative. Respiratory: Negative. Cardiovascular: Negative. Gastrointestinal: Negative. Genitourinary: Negative. Musculoskeletal: Negative. Skin: Negative. Neurological: Negative. Psychiatric/Behavioral: Negative. Hematological: Negative. Endocrine: Negative. Allergic/Immunologic: Negative. Objective Base Eye Exam Visual Acuity (Snellen - Linear) Right Left Dist sc 20/30 20/60 Tonometry (Applanation, 9:21 AM) Right Left Pressure 16 15 Pupils Pupils Right PERRL Left PERRL Visual Reynaga Left Right Full Full Extraocular Movement Right Left Full, Ortho Full, Ortho Neuro/Psych Oriented x3: Yes Dilation Both eyes: 1.0% Mydriacyl @ 8:59 AM Additional Tests Keratometry K1 Rexford K2 Rexford Right 45.00 3 45.25 93 Left 44.50 11 45.00 101 Slit Lamp and Fundus Exam External Exam Right Left External Brow ptosis Brow ptosis Slit Lamp Exam Right Left Lids/Lashes Blepharitis, Dermatochalasis - upper lid Blepharitis, Dermatochalasis - upper lid Conjunctiva/Sclera White and quiet White and quiet Cornea Decreased tear film, RTBUT <1 sec Decreased tear film, RTBUT <1sec Anterior Chamber Deep and quiet Deep and quiet Iris Round and reactive Round and reactive Lens Posterior chamber intraocular lens, 2+ Posterior capsular opacification Posterior chamber intraocular lens, 1+ Posterior capsular opacification Anterior Vitreous Normal Normal Fundus Exam Right Left Disc Normal Normal Macula Normal Normal Vessels Normal Normal Periphery Normal Normal Lacrimal Exam Schirmers Right Left 1 mm 2 mm Refraction Manifest Refraction Sphere Cylinder Rexford Right +0.00 -0.25 010 Left -1.50 Assessment/Plan Diagnoses and all orders for this visit: Bilateral posterior capsular opacification - PCO OU: (Posterior Capsule Opacification) Can be observed without intervention if PCO is not visually significant. Nd:YAG laser capsulotomy may be considered if impairment of vision rises to a level that dose not meet the patient's functional needs or interferes with activities of daily living. Risks, benefits and alternatives to the procedure will be reviewed. If the patient has undergone Nd:YAG laser capsulotomy, they are to notify their marine operations coordinator promptly if they have a significant change in symptoms, such as flashes of light (photopsia), an increase in floaters, loss of visual field or decrease in visual acuity. Keratoconjunctivitis sicca of both eyes not specified as Sjogren's - Keratoconjunctivitis sicca OU -- Environmental changes to minimize dryness and exposure and the use of artificial tears were recommended. In addition, prescription based product was advised (ie. Restasis, Cequa or Xiidra) and prescribed. Discussed Blepharitis of upper and lower eyelids of both eyes, unspecified type - Blepharitis, posterior type OU - The patient exhibits inspissated meibomian glands. Warm compresses, lid massage and lid scrubs were recommended. documented in this encounter [facility] 02-09-2024 History of Present illness Narrative Skin [...] Examined Right arm Examined Patient wearing nail malian, Denies dark streaks under finger nails, Denies [...] Visit: 1 year documented in this encounter [facility] 11-07-2023 Instructions Faiza Mejia - 11/07/2023 10:59 AM EDT RTC in 6 months Lab draw same day Continue following with Dr. Barlow documented in this encounter [facility] 11-07-2023 History of Present illness Narrative Images from the original note were not included. NAME: Oquendo Nadeen CLINIC NO.: [id number] DATE OF SERVICE: November 07, 2023 ([facility]) Some elements in this clinic note that [...] and labs are stable. 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 [...] in the next week. 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 [...] which included preparing to see the patient, dsyw-ka-[id number] patient care, completing clinical documentation, performing a medically appropriate examination, counseling and educating the patient/family/caregiver, ordering medications, tests, or procedures, independently interpreting results (not separately reported), communicating results to the patient/family/caregiver, and care coordination (not separately reported). Fernando Hanna MD, CPE Hematology and Oncology Services Provided at: [place], [place] Scribe Attestation: This note was scribed [...] under my direction. CC: Schuyler Barlow MD [facility] [facility] [address] documented in this encounter [facility] 11-07-2023 Note HNO ID: [id number] Author: FERNANDO HNANA MD Service: ? Author Type: Physician Type: Progress Notes Filed: 11/07/2023 18:52 Note Text: NAME: OquendoNadeen CLINIC NO.: [id number] DATE OF SERVICE: November 07, 2023 (Abhyankar) Some elements in this clinic note that are critical to medical decision making have been carefully reviewed and included from a prior clinic note dated: May 09, 2023 (Abramonankjaved) Referring Provider: Dr. Schuyler Barlow Additional Clinicians [...] and labs are stable. 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 [...] in the next week. 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 [...] areas of s (more content not included)... [facility] 10-19-2023 Evaluation note Authored October 19, 2023 9:59 am Patient notes ongoing consti pation, patient notes some evening satiety but otherwise GI symptoms are entirely absent [facility] Work Phone: [phone]) 268-661402-19-2024 Instructions* Patient Instructions* Fernando Hanna MD - 05/09/2023 10:25 AM EST Follow up in 6 months. Lab draw same day. [facility] History of Present illness Narrative* Fernando Hanna MD - 05/09/2023 10:00 AM EST Images from the original note were not included. NAME: Erik Oquendoyn [facility] NO.: [id number] DATE OF SERVICE: May 09, 2023 (Abmeredithar) Some elements in this clinic note that are critical to medical decision making have been carefully reviewed and included from a prior clinic note dated: November 08, 2022 (Kimсергейjaved) Referring Provider: Dr. Schuyler Barlow Additional Clinicians [...] and labs are stable. 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 [...] in the next week. 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 [...] which included preparing to see the patient, jhkx-zn-[id number] patient care, completing clinical documentation, performing a medically appropriate examination, counseling and educating the patient/family/caregiver, ordering medications, tests, or procedures, independently interpreting results (not separately reported), communicating results to the patient/family/caregiver, and care coordination (not separately reported). Fernando Hanna MD, CPE Hematology and Oncology Services Provided at: [place], [place] CC: Schuyler Barlow MD [address] [address] [facility] Telephone encounter Note * Telephone Encounter - FABIO EspositoW-S - 05/05/2023 1:15 PM EST Late entry: 04/26/2023 2:20pm SW returned phone call to Jenn at Dr. Barlow's office. Pt had informedSW at last appointment that they wanted to talk with SW prior to prescribing Pt anxiety medication,and gave verbal permission for SW to talk with her PCP's office. Jenn is aware that Pt has an initial appointment scheduled to see birth attendant, Michoacano Mendes, in June for medication management [...] with her medication. [facility] Work Phone: [phone] 443-691502-15-2024 Miscellaneous Notes* Telephone Encounter - ALEXI Esposito [...] has an initial appointment scheduled to see birth attendant, Michoacano Mendes, in June for medication management [...] 04/26/2023 2:[address] Annette Sierra called and would like to speak to Kylee Rosales regarding a mutual patient Nadeen Oquendo 1950 ( to call her back she said p. [phone] and push option 1 let them know that you're trying to reach Dr. Bryant nurse Mariela and they'll send you to her, this afternoon they have a light schedule. (lunch 12:30-1pm) ) documented in [facility] [id number] Telephone encounter Note* Telephone Encounter - Radha Martinez - 04/26/2023 2:20 PM EST Mariela, Dr. Bryant nurse called and would like to speak to Kylee Rosales regarding a mutual patient Nadeen Oquendo 1950 ( to call her back she said p. [phone] and push option 1 let them know that you're trying to reach Dr. Annette Sierra and they'll send you to her, this afternoon they have a light schedule. (lunch 12:30-1pm) ) [facility] [id number] Evaluation note* Encounter Date Diagnosis Assessment Notes Treatment Notes Treatment Clinical Notes Apr, LEO (generalized anxiety disorder) (ICD-10 - F41.1) [facility] Other 01-31-2024 Evaluation note* Encounter Date Diagnosis [...] w/ BB. Avoid stimulants, decrease caffeine intake [facility] Other 12-15-2023 Evaluation note* Encounter Date Diagnosis Assessment Notes Treatment Notes Treatment Clinical Notes Feb, Cardiomegaly (ICD-10 - I51.7) Feb, Persistent cough (ICD-10 - R05.3) Feb, Dyspnea on exertion (ICD-10 - R06.09) [facility] Other 12-14-2023 Evaluation note* Encounter Date Diagnosis Assessment Notes Treatment Notes Treatment Clinical Notes Feb, Cardiomegaly (ICD-10 - I51.7) Feb, Persistent cough (ICD-10 - R05.3) Feb, Dyspnea on exertion (ICD-10 - R06.09) [facility] Other 12-11-2023 Evaluation note* Encounter Date Diagnosis Assessment Notes Treatment Notes Treatment Clinical Notes Feb, Chronic obstructive pulmonary disease with (acute) exacerbation (ICD-10 - J44.1) [facility] Other 12-08-2023 Evaluation note* Encounter Date Diagnosis [...] infection 6 wks earlier but worsened lastely [facility] Other 12-01-2023 Evaluation note* Encounter Date Diagnosis Assessment Notes Treatment Notes Treatment Clinical Notes Feb, LEO (generalized anxiety disorder) (ICD-10 - F41.1) Healthy diet and exercise. Keep active. 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 Discussed augmenting Celexa for breakthrough mood swings. Refer for counseling. [facility] Other 11-13-2023 Evaluation note* Encounter Date Diagnosis Assessment Notes Treatment Notes Treatment Clinical Notes Jan, Simple chronic bronchitis (ICD-10 - J41.0) [facility] Other 10-25-2023 Evaluation note* Encounter Date Diagnosis Assessment Notes Treatment Notes Treatment Clinical Notes Dec, Bee sting, accidental or unintentional, initial encounter (ICD-10 - T63.441A) Cleanse area w/ soap and water. Ice to RUE qid. Elevate hand above elbow to avoid hand/fingers swelling Dec, Allergic reaction, initial encounter (ICD-10 - T78.40XA) Benadryl at HS. CLaritin q am. Topical crms not beneficial [facility] Other 09-29-2023 Evaluation note* Encounter Date Diagnosis Assessment Notes Treatment Notes Treatment Clinical Notes Nov, Sprain of other ligament of right ankle, initial encounter (ICD-10 - S93.491A) ROM exercises, ice/heat and Tylenol Voltaren Gel qid Use pain as guideline XR but unlikely to be fx [facility] Other 09-16-2023 Evaluation note* Encounter Date Diagnosis [...] no improvement in 2 to 3 days [facility] 06-01-2023 [facility]* Encounter Date Diagnosis Assessment [...] cancer (ICD-10 - Z12.2) LDCT in September, [facility] Other 03-08-2023 Evaluation note* Encounter Date Diagnosis Assessment Notes Treatment Notes Treatment Clinical Notes May, Chronic idiopathic constipation (ICD-10 - K59.04) May, Hemorrhoids (ICD-10 - K64.9) [facility] Other 02-20-2023 History of Present illness Narrative* Citlaly Cole APRN.[employer] SALES CONSULTANT - 05/10/2022 9:23 AM EST Images from the original note were not included. NAME: Nadeen Oquendo CLINIC NO.: [id number] DATE OF SERVICE: May 11, 2022 Some elements in this clinic note that are critical to medical decision making have been carefully reviewed and included from a prior clinic note dated: November 09, 2021. Referring Provider: Dr. Schuyler Barlow Additional Clinicians involved in Nadeen Stephen Oquendo's care: CC: CLL diagnosed 2014. ASSESSMENT: [...] and labs are stable. 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 [...] in the next week. 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 [...] family history on file. Citlaly Cole APRN.CNP [place], [place] CC: Schuyler Barlow MD [address] [address] I spent a total of 20 minutes on the date of the service which included preparing to see the patient, sqln-pk-leir patient care, completing clinical documentation, obtaining and/or reviewing separately obtained history, performing a medically appropriate examination, counseling and educating the pat ient/family/caregiver, ordering medications, tests, or procedures, independently interpreting results (not separately reported), and communicating results to the patient/family/caregiver. [facility] Miscellaneous Notes* Telephone Encounter - Kimberly Coker Ma - 05/07/2022 2:50 PM EST Lab orders for appointment on 05/10/22 Kimberly Coker Ma documented in [facility] encounterWilson [facility]10-[facility]-2022 Evaluation note* Encounter Date Diagnosis Assessment Notes [...] take with food to prevent stomach upset. [facility] Other [id number] Instructions* Patient Instructions* Fernando Hanna MD - 11/09/2021 9:37 AM EDT 1. RTC 6 months 2. Lab draw same day. documented in this encounterWilson [facility] Hospital08-22-2022 History of Present illness Narrative* Fernando Hanna MD - 11/09/2021 9:30 AM EDT Images from the original note were not included. NAME: Nadeen Oquendo CLINIC NO.: [id number] DATE OF SERVICE: November 09, 2021 Some elements in this clinic note that are critical to medical decision making have been carefully reviewed and included from a prior clinic note dated: May 11, 2021 Referring Provider: Schuyler Barlow Additional Clinicians involved in Nadeen [...] and labs are stable. 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 [...] in the next week. 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 [...] which included preparing to see the patient, xmgi-az-yzjj patient care, completing clinical documentation, performing a medically appropriate examination, and ordering medications, tests, or procedures. Fernando Hanna MD, [place], [place] CC: Schuyler Barlow MD [address] [address] documented in this encounterWilson [facility]02-10-2022 NoteHISTORY AND PHYSICAL EXAMINATION HISTORY: The [...] Pupils motility, muscle balance and confrontational visual reynaga within normal limits bilaterally. Pressures are measured [...] and go forward with her elective procedure. [facility] Signed and Approved by: RIVERA SAINI 04/27/2021 13:25:00[facility]02-10-2022 NoteOPERATIVE NOTE OPERATION DATE: 03-26-21 ANESTHETIC: Topical. [...] was injected into the anterior chamber and [employer] cell sponge was used to check the wounds to be water tight. One drop of apraclonidine and 1 drop of prednisolone acetate were placed into the eye and shield was placed over top. The patient was sent to the postoperative area in satisfactory condition to followup the following day for postoperative care. [facility] Signed and Approved by: RIVERA SAINI 04/27/2021 13:24:00[facility]02-10-2022 NoteOP Note 03/26/2021 SURGEON: Rivera Saini D.O. [...] ensuring mobility, phacoemulsification was performed in a uvhqbin-bub-emlilf-type fashion. After all nuclear material had been [...] up the following day for postoperative care.[facility] [id number] NotePre-Op History and Physical HISTORY: Patient is [...] decline other than that of cataract. 2. [id number]-[id number] patient was briefed in the office and [...] and go forward with this elective procedure. [facility] Signed and Approved by: RIVERA SAINI 05/27/2021 16:29:00[facility]02-10-2022 NoteOP Note DATE OF SERVICE: 04/30/2021 SURGEON: [...] ensuring mobility, phacoemulsification was performed in a tyfwqeg-jwa-ggkcnw-type fashion. After all nuclear material had been [...] up the following day for postoperative care. [facility] Signed and Approved by: RIVERA SAINI 05/27/2021 16:29:00[facility]-10-2022 NoteNAME: Nadeen OquendoROB#: [id number] DATE OF : 1950MEDICAL REC#: [id number] PATIENT SUPPORT TECH: Carmen SoriaADMABE DATE: SPLASH LINE OPERATOR DATE: 05/02/2021 12:42:54 pmDICTATING PHYSICIAN: Rivera Saini [...] decline other than that of cataract. 2. [id number] patient was briefed in the office and [...] and go forward with this elective procedure.[facility] [id number] Evaluation note* Encounter Date Diagnosis Assessment Notes Treatment Notes Treatment Clinical Notes Mar, Hemorrhoids (ICD-10 - K64.9) START ANUSOL HC CREAM BID Mar, Chronic idiopathic constipation (ICD-10 - K59.04) Mar, History of colon polyps (ICD-10 - Z86.010) REPEAT COLONOSCOPY Mar, Other CONTINUE SENOKO T S AT BEDTIME [facility] Other Evaluation note* Diagnosis Chronic lymphocytic leukemia (HCC)- Primary Chronic lymphoid leukemia, without mention of having achieved remission [facility]* Diagnosis Chronic lymphocytic leukemia (HCC)- Primary Chronic lymphoid leukemia, without mention of having achieved remission documented in this encounter [facility]Evaludel[facility] note* Diagnosis Chronic lymphocytic leukemia (HCC)- Primary Chronic lymphoid leukemia, without mention of having achieved remission documented in this encounter [facility] HospitalEvaluation noteNo InformationNortRoxbury Treatment [facility] Other Evaluation noteNo assessment information available [facility] Work Phone: Evaluation note* Diagnosis Onset Date Resolution Status Ankle sprain acute Cryptic tonsil acute RLS (restless legs syndrome) acute Chronic bronchitis acute LEO (generalized anxiety disorder) acute GERD (gastroesophageal reflux disease) acute Major depression acute Medicare annual wellness visit, subsequent noneactive [facility] Work Phone: Evaluation note* Author William Hirsch [facility] Authored October 19, 2023 9:59 am Patient notes ongoing consti pation, patient notes some evening satiety but otherwise GI symptoms are entirely absent [facility] Work Phone: Evaluation note* Diagnosis CLL (chronic lymphocytic leukemia) (HCC)- Primary Chronic lymphoid leukemia, without mention of having achieved remission [facility] Seborrheic keratosis- Primary Lentigines [facility]* Diagnosis LEO (generalized anxiety disorder) ([facility]/HCC) Generalized anxiety disorder [facility]* Diagnosis Bilateral posterior capsular opacification- Primary Unspecified after-cataract Keratoconjunctivitis sicca of both eyes not specified as Sjogren's Blepharitis of upper and lower eyelids of both eyes, unspecified type [facility]* Diagnosis CLL (chronic lymphocytic leukemia) (HCC)- Primary Chronic lymphoid leukemia, without mention of having achieved remission documented [facility] this encounter [facility] Hospital[facility] and physical note Author Jake Mireles [facility] August 19, 2022 8:02am Note Date/Time August 19, 2022 8:02a [facility] ENTER [address] [place] [address] Gastroenterology H&P Signed Patient: Nadeen Oquendo MR#: [id number] : 1950 Acct:[id number] Age/Sex: 71 / F Adm Date: 3 Loc: Room: Type: [facility] Attending Dr: Jake Mireles MD [...] signed by Jake Mireles MD> 08/19/22 0802 [facility] Work Phone: History general Narrative - Reported* Type Description Date Medical History Constipation - functional Medical History Chronic lymphatic leukemia Medical History MVP (mitral valve prolapse) Medical History Gastroesophageal ref lux disease, esophagitis presence not specified Medical History Anxiety Surgical History LEFT KIDNEY (SPOT REMOVED) Surgical History eye surgery [employer] [facility] Other [facility] general Narrative - Reported* Type Description Date [...] extraction 04/27/21 Hospitalization History see surgical history [facility] Other History general Narrative - Reported* Type [...] years 08/2022 Hospitalization History see surgical history [facility] Other Hospital Discharge instructions Additional Instructions DISCHARGE [...] years. -Follow up with PCP. -Office number [phone].[facility] Work Phone: Reason for referral (narrative)* Reason Referral for admissions counselor ing Diagnosis 1 LEO (generalized anx iety disorder) (F41.1) Referral Organization [facility] Yen jarquin Referring Provider First Name Schuyler Referring Provider Last Name Yen Referring Provider Specialty Internal Me javier Referred Organization [facility] Referred Provider Yi Le Referred Address ,[place], [place],[address] Referred Provider Specialty Psychiatry Referral Priority Routine General Notes Patient being referr ed for counseling for LEO and depression. [facility] Other Summary Purpose Family History No Family [...] Advance Directives No April 13, 2017 12:48pm Advance Directive Response Recorded Date/ Time Advance Directives No April 13, 2017 11:48am History of Present Illness * Rodolfo Ross [...] file Gets together: Not on file Attends protestant service: Not on file Active member of [...] file Gets together: Not on file Attends protestant service: Not on file Active member of [...] (generalized anxiety disorder) Major depression Raynaud's phenomenon Chief Complaint Admit Date rash on lower extremities May 02, 2024 9:10am Additional Source Comments INFORMATION SOURCE (unrecogn ized section and content) DATE CREATED AUTHOR 09/06/2017 [facility] DATE CREATED AUTHOR AUTHOR'S ORGANIZ ATION 10/20/2021 [facility] Me dical Specialist DATE CREATED AUTHOR AUTHOR'S ORGANIZ ATION 02/10/2022 [facility] DATE CREATED AUTHOR AUTHOR'S ORGANIZ ATION 12/11/2022 [facility] DATE CREATED AUTHOR AUTHOR'S ORGANIZ ATION 03/12/2024 [facility] dical Specialists EPIC DATE CREATED AUTHOR AUTHOR'S ORGANIZ ATION 05/17/2024 [facility] Reason for Visit (unrecogniz ed section and content) Reason Comments Cosmetic Botox injection. Las t Botox injection was on 01/24/19. Reason Comments Cosmetic Restylane injection. Last Restylane injection was on 01/25/17. Reason Comments Leukemia 6 month follow up Reason Comments Lab Orders Reason Comments Leukemia Reason Comments Skin Check Reason Comments Follow-up Reason Comments Blurred Vision Reason Comments Leukemia Follow up Source Comments (unrecognize d section and content) In the event this informatio n is protected by the Federal Confidentiality of Alcohol and Drug Abuse Patient Records regulations: The Federal rules restrict any use of the information to criminally investigate or prosecute any alcohol or drug abuse patient.[facility] the event this information is protected by the Federal Confidentiality of Alcohol and Drug Abuse Patient Records regulations: The Federal rules restrict any use of the information to criminally investigate or prosecute any alcohol or drug abuse patient.[facility] Hospital[facility] the event this information is protected by the Federal Confidentiality of Alcohol and Drug Abuse Patient Records regulations: The Federal rules restrict any use of the information to criminally investigate or prosecute any alcohol or drug abuse patient.[facility] Hospital[facility] the event this information is protected by the Federal Confidentiality of Alcohol and Drug Abuse Patient Records regulations: The Federal rules restrict any use of the information to criminally investigate or prosecute any alcohol or drug abuse patient.[facility] Hospital[facility] the event this information is protected by the Federal Confidentiality of Alcohol and Drug Abuse Patient Records regulations: The Federal rules restrict any use of the information to criminally investigate or prosecute any alcohol or drug abuse patient.[facility] Hospital[facility] the event this information is protected by the Federal Confidentiality of Alcohol and Drug Abuse Patient Records regulations: The Federal rules restrict any use of the information to criminally investigate or prosecute any alcohol or drug abuse patient.[facility] Care Teams (unrecognized sec tion and [...] June 20, 2023 End: June 20, 2023 Steamer Blocker Relationship Specialty Start Date End Date Schuyler Barlow DO PCP - General Internal Medicine 08/22/14 Steamer Blocker Relationship Specialty Start Date End Date Schuyler Barlow DO PCP - General Internal Medicine 08/22/14 Steamer Blocker Relationship Specialty Start Date End Date Schuyler Barlow DO PCP - General Internal Medicine 08/22/14 Team Status: Inactive Member Role Status Dates Schuyler Barlow DO Primary Care Provider Active Jake Mireles MD Attending Provider Active Team Status: Inactive Member Role Status Dates Schuyler Barlow DO Primary Care Provider Active DONATO Odonnell Attending Provider Active Steamer Blocker Relationship Specialty Start Date End Date Schuyler Barlow DO PCP - General Internal Medicine 08/22/14 Team Status: Inactive Member Role Status Dates Schuyler Barlow DO Attending Provider Active Sta rt: April 20, 2023 End: April 20, 2023 Team Status: Active Member Role Status Dates Schuyler Barlow DO Primary Care Provide r, Attending Provider Active Start: May 09, 2023 Steamer Blocker Relationship Specialty Start Date End Date Schuyler [...] January 06, 2024 End: January 06, 2024 Steamer Blocker Relationship Specialty Start Date End Date Schuyler Barlow MD [address] [place] [address] PCP - General Internal Medicine 11/02/23 Steamer Blocker Relationship Specialty Start Date End Date Schuyler Barlow MD [address] [place] [address] PCP - General Internal Medicine 11/02/23 Steamer Blocker Relationship Specialty Start Date End Date Schuyler Barlow MD [address] [place] [address] PCP - General Internal Medicine 11/02/23 Steamer Blocker Relationship Specialty Start Date End Date Schuyler Barlow MD [address] [place] [address] PCP - General Internal Medicine 11/02/23 Steamer Blocker Relationship Specialty Start Date End Date Schuyler Barlow MD [address] [place] [address] PCP - General Internal Medicine 11/02/23 Team Status: Inactive Member Role Status Dates Schuyler Barlow DO Primary Care Provide r, Attending Provider Active Start: May 02, 2024 End: May 02, 2024 Steamer Blocker Relationship Specialty Start Date End Date Schuyler Barlow DO PCP - General Internal Medicine 08/22/14 Goals (unrecognized section and content) Goals may [...] BE BASED ON THE PRIMARY CLINICAL RECORDS. [employer] [facility]. provides no warranty or guarantee of the accuracy or completeness of information in this document.
--- NOTE | 2024-06-06 12:23 | XR_ITS ---
The [address] [address] Patient Name: ALBERTINA LANE MRN: [id number] date: 1950 Sex: F Assigned Patient Location: RAD Current Patient Location: [facility] Accession/Order Number: [id number] Exam Date: 06/06/2024 12:44 Report Date: 06/06/2024 12:44 At the request of: TORY BARLOW DO Procedure: XR ankle LT min 3V LEFT ANKLE - 3 views CLINICAL HISTORY: Left ankle pain for 2 weeks after fall. COMPARISON: None FINDINGS: Bones are grossly demineralized. No focal soft tissue abnormality. Ankle mortise appears intact without acute bony process. XR/XR ankle LT min 3V IMPRESSION: NO ACUTE BONY PROCESS. Impression dictated by: Sincere Zepeda Jr., D.O.06/06/2024 12:44 PM Dictation Location: [place] [address] Electronically authenticated by: [id number] Y Date: 06/06/2024 12:44
== END 2024-06-06 12:16 | disposition home or self-care (01) ==
LOC: RAD 12:19
PROVIDERS: PCP Internal Medicine; Visit Provider Internal Medicine
DX: M25.572 Pain in left ankle and joints of left foot (principal)
CPT/HCPCS: 73610

== ENCOUNTER 2024-11-01 07:02 | Outpatient (OUT) | payer MEDICARE, SELFPAY ==
--- OUTSIDE RECORDS SUMMARY | 2024-10-29 05:10 | XMS_ITS | Continuity of Care Document ---
Author Organization [facility] Address [address] [place] [address] Phone Care Team Providers Care Tail Board Man Name Role Phone Thang Schuyler ALEJO Primary Care Provider Schuyler Desir DO Attending Provider William Hirsch APRN Attending Provider Care Teams Patient Care Team Team Status: Active Member Role Status Dates Schuyler Desir DO Primary Care Provider Active Visit Care Team Team Status: Inactive Member Role Status Dates Schuyler Desir DO Primary Care Provider Active Start: August 15, 2024 End: August 15, 2024 Schuyler Desir DO Attending Provider Active Sta rt: August 15, 2024 End: August 15, 2024 Visit Care Team Team Status: Inactive Member Role Status Dates Schuyler Desir DO Primary Care Provider Active Start: September 03, 2024 End: September 03, 2024 Schuyler Desir DO Attending Provider Active Sta rt: September 03, 2024 End: September 03, 2024 Visit Care Team Team Status: Inactive Member Role Status Dates Schuyler Desir DO Primary Care Provider Active Start: October 22, 2024 End: October 22, 2024 William Hirsch APRN Attending Provider Active Start: October 22, 2024 End: October 22, 2024 Patient Care Team Team Status: Inactive Member Role Status Dates Schuyler Desir DO Primary Care Provider Active Start: October 29, 2024 End: October 29, 2024 Schuyler Desir DO Attending Provider Active Sta rt: October 29, 2024 End: October 29, 2024 Chief Complaint and Reason for Visit Chief Complaint Admit Date I70.213 August 15, 2024 12:37 pm URI September 03, 2024 11:2 8am 1 Year follow up October 22, 2024 2:2 8pm lump on right leg October 29, 2024 8: 44am Reason for Visit Admit Date Acute bronchitis due to other specified organisms September 03, 2024 11:28am CLL (chronic lymphocytic leukemia) September 03, 2024 11:28am Acute exacerbation of chronic obstructiv e airways disease September 03, 2024 11:28am Constipation October 22, 2024 2:2 8pm GERD (gastroesophageal reflux disease) A ugust 2024 2:28pm Allergies, Adverse Reactions, Alerts Allergen Type Severity Reaction Last Updated Verified Status bee venom protein (honey bee) Allergy Unknown swelling October 29 8:45am Yes Active No Known Allergies Allergy Unknown October 29, 2024 8:45am Yes Active Social History Smoking Status Status Start Date End Date Date of Observa tion Current some day smoker August 19, 2022 6:54am Observation Status Observation Response Date of Response Legal Sex Female (finding) Sex Assigned At Female 1950 Family History Relationship Condition Age at Onset Recorded Date/T michelle brother Malignant neoplasm of brain Unknown Malignant neoplasm of colon Unknown Unknown father Unknown Malignant neoplasm Unknown Lymphoma Unknown mother Unknown Problems Active Problems Medical Problem Onset Date Status Comments Lipoma of back Unknown Active Nicotine addiction Unknown Active LDCT: no suspicious nodules - 10/2023 Major depression Unknown Active LEO (generalized anxiety disorder) Unknown Active Atherosclerosis of [place] of extremities with intermittent claudication, bilateral legs Unknown Active Low back pain Unknown Active Ankle sprain Unknown Active CLL (chronic lymphocytic leukemia) Unknown Active Raynaud's phenomenon Unknown Active RLS (restless legs syndrome) Unknown Active Cryptic tonsil Unknown Active Acute bronchitis due to othe r specified organisms Unknown Active GERD (gastroesophageal reflu x disease) Unknown Active Chronic bronchitis Unknown Active Constipation Unknown Active Medications Medication Status Dose Units Route Directions Qty Days St art Date Stop Date End Date Instructions Adherence Alprazolam 0.25 mg tablet Discont inued 0.25 MG PO Twice daily as needed for anxiety 60 30 2023 8:46am Janua ry 2024 11:27 pm Venlafaxine 37.5 mg capsule,ext ended release 24hr Discont inued 37.5 MG PO Every morning 14 14 October 19, 2023 12:00a m Septe mber 2023 10:47 am Nadolol 40 mg tablet Active 0 .ROUTE .COMPLEX 180 Septem scott 2023 8:01pm TAKE 1 TABLET BY MOUTH TWICE A DAY Complies with drug therapy Citalopram (Celexa) 20 mg tablet Discont inued 20 MG PO Daily 30 30 Octobe r 2023 12:00a m Febru gino 2024 10:09 am Alprazolam 0.25 mg tablet Active 0.25 MG PO Twice daily as needed for anxiety 60 30 Maruar y 2024 11:26p m Complies with drug therapy Citalopram 20 mg tablet Discont inued 0 .ROUTE .COMPLEX 90 ua ry 2024 10:09a m July 30, 2024 9:49a m TAKE 1 TABLET BY MOUTH EVERY DAY Doxycycline Hyclate 100 mg capsule Discont inued 100 MG PO Twice daily 14 7 ua 2024 1:00am July 30, 2024 9:13a m Citalopram 40 mg tablet Discont inued 40 MG PO Daily August 18, 2022 12:00a m September 05, 2023 10:09 am Alprazolam 0.25 mg tablet Discont inued 0.25 MG PO Daily August 18, 2022 12:00a m 2023 8:48a m Pantoprazol e 40 mg tablet,delonte yed release (DR/EC) Discont inued 40 MG PO Daily August 18, 2022 12:00a m June 17, 2023 1:10p m Nadolol 40 mg tablet Discont inued 40 MG PO Daily August 18, 2022 12:00a m June 17, 2023 9:50a m Multivitami n (Hair,Nails And Skin Vitamin) Tablet Active 1 TAB PO Daily August 19, 2022 12:00a m Complies with drug therapy Fexofenadin e (Shakira Allergy) 60 mg Tablet Active 60 MG PO Daily August 19, 2022 12:00a m Complies with drug therapy Vitamin E 400 unit Tablet Discont inued 45 MG PO Daily August 19, 2022 12:00a m Augus t 2024 2:35p m Nadolol (Corgard) 40 mg Tablet Discont inued 40 MG PO Daily August 19, 2022 12:00a m June 17, 2023 9:50a m Cholecalcif farrah (Vitamin D3) (Vitamin D3) 25 mcg (1,000 unit) Capsule Discont inued 25 MCG PO Daily August 19, 2022 12:00a m Augus t 2024 2:34p m Gabapentin 100 mg capsule Discont inued 100 MG PO Daily at bedtime as needed for RLS June 20, 2023 12:00a m [facility] 2023 10:48 am Pantoprazol e 40 mg tablet,delonte yed release (DR/EC) Active 40 MG PO Daily 90 October 19, 2023 9:49am Complies with drug therapy Sertraline (Zoloft) 50 mg tablet Discont inued 50 MG [facility] 12:00a m Octob er 2023 12:41 pm Amoxicillin 875 mg tablet Discont inued 875 MG PO Twice daily 14 7 September 03, 2024 12:00a m Octus t 2024 2:34p m Nadolol (Corgard) 40 mg tablet Discont inued 40 MG PO Twice daily June 17, 2023 12:00a m June 17, 2023 1:10p m Pantoprazol e 40 mg tablet,delonte yed release (DR/EC) Discont inued 40 MG PO Daily 90 June 17, 2023 1:09pm October 19, 2023 9:49a m Nadolol (Corgard) 40 mg tablet Discont inued 40 MG PO Twice daily 180 June 17, 2023 1:09pm [facility] 8:02p m Sertraline (Zoloft) 50 mg tablet Discont inued 50 MG PO Daily September 05, 2023 12:00a m October 19, 2023 1:15p m calcium Active PO October 22, 2024 12:00a m Complies with drug therapy vitamin b Active PO October 22, 2024 12:00a m Complies with drug therapy vitamin c Active PO October 22, 2024 12:00a m Complies with drug therapy Sennosides (Senokot) 8.6 mg tablet Active 8.6 MG PO Daily at bedtime October 22, 2024 12:00a m Complies with drug therapy Prednisone 20 mg tablet Discont inued 20 MG PO As Directed 11 7 2024 1:00am Febru gino2024 1:51p m 1 tab bid w/ food x 4 days, then qd w/ food x 3 days Triamcinolo ne Acetonide 0.1 % ointment Discont inued 1 APPLIC TOPICA L Twice daily 45 10 2024 1:00am Augus t 2024 2:35p m Citalopram 40 mg tablet Active 40 MG PO Daily at bedtime 90 July 30, 2024 9:48am Complies with drug therapy Immunizations Immunization Event Date Not Given Reason Dose Number Director Script Lot Number Vaccine Information Statement (VIS) Detail Administration Location COVID-19 mRNA, Comirnaty (A V[facility]S.c.a.r.e.) April 23, 2020 COVID-19 mRNA, Comirnaty (A V.E.T.S.c.a.r.e.) May 14, 2020 COVID-19 mRNA, Comirnaty (A V.E.T.S.c.a.r.e.) January 10, 2021 COVID-19 mRNA Bivalent Booster (A V.E.T.S.c.a.r.e.) November 27, 2021 influenza, unspecified formulation December 30, 2015 influenza, unspecified formulation January 06, 2017 influenza, unspecified formulation January 09, 2018 influenza, unspecified formulation December 06, 2019 influenza, unspecified formulation December 17, 2020 influenza, unspecified formulation December 14, 2021 Pneumococcal Conjugate Vaccine, 13 valent January 02, 2015 Pneumococcal Polysacc. Vaccine, 23 valent May 06, 2017 Procedures Procedure Date Performed Status US arterial pvr rest LE August 15, 2024 12:39pm c ompleted Relevant Diagnostic Tests and/or Laboratory Data Diagnostic Imaging Reports Author Humphrey Narvaez [facility] Authored August 17, 2024 11:13 am Report Dictated Date/Time Dictated By Status Radiology Report August 17, 2024 11:13am Humphrey Narvaez MD completed [facility] [place] [address] Ultrasound Report Signed Patient: Nadeen Oquendo MR#: [id number] : 1950 Acct:[id number] Age/Sex: 73 / F ADM Date: 5 Loc: Room: Type: [facility] CLI Attending Dr: Schuyler Desir DO Ordering Provider: Schuyler Desir DO Date of Service: 08/15/24 US/US arterial pvr rest LE: M79.604 - Pain in right leg Copies to: Schuyler Desir DO~ LOWER EXTREMITY SEGMENTAL ARTERIAL DOPSCAN (PVR) INDICATION: Claudication PROCEDURE: Right arm blood pressure is 129 , left is 134 . Pressures throughout the right leg are 179 at the high thigh, at the 162 low thigh, 163 at the calf, 155 at the ankle using the posterior tibial artery, and 156 at the ankle using the dorsalis pedis artery with ankle-brachial index of 1.16 1.16 . Pressures throughout the left leg are 156 at the high thigh, at the 166 low thigh, 157 at the calf and 146 at the ankle using the posterior tibial artery, and 151 at the ankle using the dorsalis pedis artery with ankle- brachial index of 1.09 1.13 . Wave forms by plethysmography are normal. US/US arterial pvr rest LE IMPRESSION: NO HEMODYNAMICALLY SIGNIFICANT PERIPHERAL VASCULAR OCCLUSIVE DISEASE AT REST IN EITHER LOWER EXTREMITY. Impression dictated by: Humphrey Narvaez M.D. 08/17/2024 11:13 AM Dictation Location: [place] [address] Tech: Elena Graff Transcribed By: NICK 08/17/24 1113 Dictated By: Humphrey Narvaez MD 08/17/24 1113 Signed By: <Electronically signed by MD Humphrey Narvaez in OV> 08/17/24 1113 Vital Signs Vital Reading Result Reference Range Collection Date/Time Height 69 [in_i] September 03, 2024 11:34am Weight 62.76 kg September 03, 2024 11:34am Heart Rate 71 /min 60-100 September 03, 2024 11:34am Respiratory rate 12 /min 12-24 September 03, 2024 11:34am BP Systolic 121 mm[Hg] 100-140 September 03, 2024 11:34am BP Diastolic 87 mm[Hg] 60-100 September 03, 2024 11:34am BMI (Body Mass Index) 20.4 kg/m2 August 192024 11:34am Height 69 [in_i] October 22 2:33pm Weight 61.68 kg October 22 2:33pm Heart Rate 58 /min 60-100 October 22 2:33pm BP Systolic 122 mm[Hg] 100-140 October 22 2:33pm BP Diastolic 76 mm[Hg] 60-100 October 22 2:33pm BMI (Body Mass Index) 20.0 kg/m2 October 22, 2024 2:33pm Height 69 [in_i] October 29 8:49am Weight 62.31 kg October 29 8:49am Heart Rate 71 /min 60-100 October 29 8:49am Respiratory rate 12 /min -October 8:49am BP Systolic 133 mm[Hg] 100-140 October 29 8:49am BP Diastolic 79 mm[Hg] 60-100 October 29 8:49am BMI (Body Mass Index) 20.2 kg/m2 October 29, 2024 8:49am Advance Directives Advance Directive Response Recorded Date/ Time Advance Directives No April 13, 2017 12:48pm Insurance Providers Guarantor Nadeen Oquendo Address [address] [place] [address] [place] [address] Contact Info. Home Phone: Payer Policy Id Subscriber's Name Subscriber Id Effectiv e Date Expiration Date [employer] [facility] [id number] Nadeen Oquendo [id number] Encounters Encounter Location(s) Arrival/Admit Date Discharge/Depart Date Provider(s) Departed Clinical -Ultrasound [facility] August 15, 2024 12:37pm August 15, 2024 12:38pm Schuyler Desir DO Departed Physician/Prov ider Office Visit -[facility] September 03, 2024 11:28am September 03, 2024 11:55am Schuyler Desir DO Departed Physician/Prov ider Office Visit -[facility] October 22, 2024 2:28pm October 22, 2024 2:54pm Dior Lee APRN Departed Physician/Prov ider Office Visit -[facility] October 29, 2024 8:44am October 29, 2024 9:09am Schuyler Desir , DO Recent Diagnosis Onset Date Admit Date Acute bronchitis due to other specified organism s Unknown September 03, 2024 11:28am CLL (chronic lymphocytic leukemia) Unknown September 03, 2024 11:28am Acute exacerbation of chroni c obstructive airways disease Unknown September 03, 2024 11:28am Constipation Unknown October 22, 2024 2:28pm GERD (gastroesophageal reflux disease) Unknown October 22, 2024 2:28pm Assessments Diagnosis Onset Date Resolution Status Admit Date Acute bronchitis due to othe r specified organisms acute September 03 025 11:28am CLL (chronic lymphocytic leukemia) acute September 03, 2024 11:28am Acute exacerbation of chroni c obstructive airways disease noneactive September 03, 2024 11:28am Constipation acute October 22, 2024 2:28pm GERD (gastroesophageal reflu x disease) acute October 22, 2024 2:28pm Plan of Treatment Author Schuyler Desir [facility] Authored September 03, 2024 11:5 7am I have instructed this patie nt to use Robitussin or Mucinex for cough, saline and Flonase NS for congestion and Tylenol for pain and fever. Continue antibiotics until all the medication has been taken. Report to the ER if develop any CP or SOB Stable w/o treatment Mildly immune compromised as a result Instructed to use Robitussin DM. Instructed to push fluids Author William Hirsch [facility] Authored October 22, 2024 3:0 1pm A 74-year-old female patient with diagnosis of GERD, constipation Continue Protonix 40 mg once daily as patient dyspepsia and acid reflux has entirely resolved patient without breakthrough symptoms or alarm feature Continue once daily senna patient advises this at at bedtime patient does have 1 regular bowel movement per day described as complete emptying with this regimen. Due to maintenance of medication regimen and good control of symptoms follow-up in 1 year. Patient will require 1 repeat colonoscopy in 2027 due to family history as well as findings of tubular adenoma and last colonoscopy in 2022 Future Tests Future scheduled test information is unavailable Pending Tests Pending diagnostic test information is unavailable Future Visits Future appointment information is unavailable Referrals to Other Providers Referral information is unavailable Future Procedures Future procedure information is unavailable Future Medications Future medication information is unavailable Patient Instructions Patient instructions are unavailable
--- NOTE | 2024-11-01 | US_ITS ---
The [address] [address] Patient Name: ALBERTINA LANE MRN: [id number] date: 1950 Sex: F Assigned Patient Location: US Current Patient Location: US Accession/Order Number: [id number] Exam Date: 11/01/2024 09:12 Report Date: 11/01/2024 09:15 At the request of: TORY BARLOW DO Procedure: US extremity nonvascular RT Soft tissue ultrasound. Reason for exam: Right distal lower leg lump for one week. No known injury. COMPARISON: None. FINDINGS: In the area of concern involving the right lower extremity, a hypoechoic area seen measuring 12 x 12 x 3 mm. There is surrounding color Doppler flow. This appears to be adjacent to the musculature. In addition, there appears be a shadowing calcification present measuring 4 x 4 x 3 mm. This appears to be adjacent to the hypoechoic area. No fluid collection is seen. US/US extremity nonvascular RT Impression: In the area of concern involving the right lower extremity, a hypoechoic area seen measuring 12 x 12 x 3 mm adjacent to the musculature. An adjacent calcification is seen. Finding is nonspecific and may be posttraumatic in nature such as a small hematoma. Correlation with history of trauma is suggested. If clinically necessary, repeat ultrasound could be performed to ensure resolution/stability. Impression dictated by: Sincere Zepeda Jr., D.O. 11/01/2024 9:15 AM Dictation Location: [place] [address] Electronically authenticated by: [id number] Y Date: 11/01/2024 09:15
--- OUTSIDE RECORDS SUMMARY | 2024-11-01 07:04 | XMS_ITS | Clinical Summary ---
Author Organization [facility] Address [address] [facility] [place] [address] Care Team Providers Care Annealer Helper Name Role Phone Schuyler Desir DO Primary Care Provider [phone] Allergies No known active allergies Medications Citalopram Hydrobromide (CELEXA PO) Celexa; take 1 tablet by oral route every day. Active nadolol (CORGARD) 80 MG Tab take 80 mg by mouth daily. Active omeprazole (PRILOSEC) [address] take 40 mg by mouth daily. Before a meal Active ALPRAZolam 0.25 MG Tab tablet TAKE 1/2 TO 1 TABLET BY MOUTH EVERY 6 HOURS NEEDED FOR ANXIETY AND RESTLESS LEGS 5 8 Active Active Problems Problem Noted Date Diagnosed Date Intrinsic aging of facial skin 08/24/2017 [place] Family History Medical History Relation Name Comments Colon Cancer Brother Relation Name Status Comments Brother Social History Tobacco Use Types Packs/Day Years Used Date Smoking Tobacco: Light Smoker Cigarettes Smokeless Tobacco: Never Comments Unknown Sex and Gender Information Value Date Recorded Sex Assigned at Not on file Legal Sex Female 3:03 PM EDT Gender Identity Female 12/08/2016 3:05 PM EDT Sexual Orientation Not on file Last Filed Vital Signs Vital Sign Reading Time Taken Comments Blood Pressure 140/84 09/26/2019 1:23 PM EDT Pulse 61 09/26/2019 1:23 PM EDT Temperature 36.1 C (96.9 F) 09/26/2019 1:23 PM EDT Respiratory Rate 16 08/17/2016 9:47 AM EDT Oxygen Saturation - - Inhaled Oxygen Concentration - - Weight 63 kg (139 lb) 09/26/2019 1:23 PM EDT Height 175.3 cm (5' 9 ) 02/28/2019 10:40 AM EST Body Mass Index 20.53 02/28/2019 10:40 AM EST Plan of Treatment Health Maintenance Due Date Last Done Comments DEXA SCAN DISCUSSION 1948 HEPATITIS C VIRUS SCREENING 1948 TETANUS 1948 TDAP (ADULT) 09/22/1967 CERVICAL CANCER SCREENING DISCUSSION 1969 MAMMOGRAM SCREENING DISCUSSION 1988 COLORECTAL CANCER SCREENING DISCUSSION 1993 ZOSTER (SHINGLES) VACCINE (2 of 3) 03/22/2013 01/25/2013 PNEUMOCOCCAL VACCINE SERIES (2 of 2 - PCV) 05/06/2018 05/06/2017 RSV VACCINE (1 - 1-dose 75+ series) 09/22/2023 COVID-19 VACCINE (1 - 2023- season) 2023 INFLUENZA VACCINE (#1) 2024 9, 02/01/2018, 01/09/2018, Additional history exists HEP B VACCINE Aged Out No longer jack[place] dionna based on patient's age to complete this topic [place] [address] Pre Paid Elective Self Pay on file Care Teams Annealer Helper Relationship Specialty Start Date End Date Schuyler Desir DO PCP - General Internal Medicine 01/18/17
--- OUTSIDE RECORDS SUMMARY | 2024-11-01 07:04 | XMS_ITS | CCD ---
Author Organization [facility] CliniSytn Care Team Providers Care Glass Carrier Name Role Phone GHAZOUL, RODOLFO Unavailable Unavailable GHAZOUL, RODOLFO Unavailable Unavailable GHAZOUL, RODOLFO Unavailable Unavailable SELF, SELF Unavailable Unavailable Schuyler Barlow Primary Care Provider Schuyler Barlow Primary Care Provider [phone] Kedar Paredes Unavailable Schuyler Barlow DO Primary [...] RIVERA Attending Unavailable PARVEEN, RIVERA Admitting Unavailable ZARIVERA WANG Consulting Unavailable BALL, DR PAYAN Referring Unavailable [...] Attending Unavailable BALL, DR PAYAN Admitting Unavailable Yen ALEJO, Schuyler Hackett Primary Care Provider Jake Mireles Unavailable Schuyler Barlow Unavailable Ball, DO Payan Primary Care Provider MD Jake Mireles Attending Provider Daija Cain Unavailable Ball, DO Payan Primary Care Provider DONATO Cain Attending Provider Unavailable Primary Care Provider UnavailSchuyler Lauren DO Primary Care Provider Schuyler Barlow MD Primary Care Provider FERNANDO HANNA Attending Unavailable SCHUYLER BARLOW Primary Care Unavailable SCHUYLER BARLOW Primary Care Unavailable FERNANDO HANNA Attending Unavailable SCHUYLER BARLOW Primary Care Unavailable SCHUYLER BARLOW Primary Care Unavailable Schuyler Barlow MD Primary Care Provider Alie-Nossek SCIENCE WRITER-COMPILATION CLERKMichoacano Unavailable Kylee Gallagher Unavailable [phone] Schuyler Barlow MD Primary Care Provider Schuyler Barlow DO Primary Care Provider GUNNER BARRETT Attending Unavailable JOJO GONSALVES Attending Unavailable ALIE-MICHOACANO JUNG Attending Unavailab KYLEE Riley Attending Unavailable JOJO GONSALVES Referring Unavailable MICHOACANO CARRIZALES Attending Unavailab KYLEE Riley Attending Unavailable KYLEE SMITH Attending Unavailable MICHOACANO CARRIZALES Attending Unavailab KYLEE Riley Attending Unavailable GUNNER BARRETT Attending Unavailable RIVERA SAINI Attending Unavailable Schuyler Barlow DO Primary Care Provider [phone] Schuyler Barlow DO Attending Provider [phone] Schuyler Barlow Admitting Unavailable Schuyler Barlow Attending Unavailable Schuyler Barlow Primary Care Unavailable Schuyler Barlow DO Primary Care Provider [phone] Schuyler Barlow DO Attending Provider William Hirsch APRN Attending Provider Allergies Allergy Classification Reported Allergen(s) Allergy Type Date of Onset Reaction(s) Facility (9 sources) Bee Venom Protein (Honey Bee); Translations: [BEE VENOM PROTEIN (HONEY BEE)] Drug Allergy 4 Unknown, Swelling [facility] (1 source) bee venom Drug allergy (disorder) 4 [facility] (2 sources) patient allergy list reviewed by nurse or physicia Propensity to adverse reactions 4 Comment:Done [employer] Other (16 sources) Bee Sting Drug allergy swelling [employer] Other (12 sources) Honey bee venom Allergy to substance 4 Unknown [facility] (1 source) bee venom protein (honey bee) Drug allergy (disorder) 5 [facility] Repository Medications Current Medications Medication Drug Class(es) Dates Sig (Normalized) Sig (Original) [id number] actuat albuterol 0.09 mg/actuat metered dose [...] needed for anxiety 60 March 29, 2024 11:26pm Complies with drug therapy Start: 08-18-2022 End: 2023 take 1 tablet by mouth once daily Alprazolam 0.25 mg tablet Discontinued 0.25 MG PO Daily August 18, 2022 12:00am 2023 8:48am Start: 06-06-2022 take 1 tablet by kaleb th every eight hours as needed for [...] AM and 1/2 tab in the afternoon Ascorbic Acid (2 sources) Vitamin C Start: 10-22-2024 vitamin c Active PO October 22, 2024 12:00am Complies with drug therapy Start: 10-22-2024 azithromycin 250 mg oral tablet (2 sources) Macrolide Antimicrobial Start: 01-17-2023 Azithromycin 250 MG as directed Orally daily for 5 days Dec, Active benzonatate 100 mg oral capsule (9 sources) Non-narcotic Antitussive Start: 02-25-2023 take 1 capsule by mouth every eight hours Benzonatate 100 MG 1 capsule as needed Orally Three times a day for 10 days Feb, Active busPIRone hydrochloride 15 mg oral tablet (4 sources) Start: 04-27-2023 busPIRone (BUSPAR) 15 mg tablet TAKE 1 TABLET EVERY DAY FOR THE FIRST WEEK THEN INCREASE TO TWICE A DAY 04/27/2023 Active Comment on above: TAKE 1 TABLET EVERY DAY FOR THE FIRST WEEK THEN INCREASE TO TWICE A DAY Calcium (2 sources) Phosphate Binder, Calcium Start: 10-22-2024 calcium Active PO October 22, 2024 12:00am Complies with drug therapy Start: 10-22-2024 citalopram 40 mg oral tablet (20 sources) Serotonin Reuptake Inhibitor Start: 07-30-2024 take 1 tablet by mouth once daily at bedtime Citalopram 40 mg tablet Active 40 MG PO Daily at bedtime 90 July 30, 2024 9:48am Complies with drug therapy Start: 06-19-2024 take 1 tablet by kaleb th once daily citalopram (CeleXA) 20 MG tablet Take 20 mg by mouth Daily 06/19/2024 Active Start: 04-22-2024 End: 07-30-2024 take 1 tablet by mouth once daily Citalopram 20 mg tablet Discontinued 0 .ROUTE .COMPLEX 90 April 22, 2024 10:09am July 30, 2024 9:49am TAKE 1 TABLET BY MOUTH EVERY DAY Start: 12-30-2023 End: 04-22-2024 take 1 tablet by mouth once daily Citalopram (Celexa) 20 mg tablet Discontinued 20 MG PO Daily December 30, 2023 12:00am April 22, 2024 10:09am Start: 08-18-2022 End: 09-05-2023 take 1 tablet by mouth once daily Citalopram 40 mg tablet Discontinued 40 MG PO Daily August 18, 2022 12:00am September 05, 2023 10:09am take 2 tablets by mo [facility] once daily citalopram (CELEXA) 20 mg tablet Take 40 mg by mouth once daily. Active citalopram (Alisha XA) 20 MG tablet Take by mouth. 0 Active take 1 tablet by kaleb th once daily CeleXA 30 mg 1 tablet Orally Once a day Active Citalopram [place] bromide Active take 1 tablet by kaleb th once daily Citalopram Hydrobromide (CELEXA PO) Celexa; take 1 tablet by oral route every day. 0 Active Comment on above: Take 40 mg by mouth once daily. docusate sodium 50 mg / sennosides, nursing home 8.6 mg oral tablet (20 sources) take 1 tablet by mouth every twenty-four hours Senokot S 8.6-50 MG 1 tablet in the evening as needed Orally Once a day Active fexofenadine hydrochloride 60 mg oral tablet (18 sources) Histamine-1 Receptor Antagonist Start: 3 take 1 tablet by mouth once daily Fexofenadine (Shakira Allergy) 60 mg Tablet Active 60 MG PO Daily August 19, 2022 12:00am Complies with drug therapy take 1 tablet by mouth once rasalan y fexofenadine (SHAKIRA) 180 mg tablet Indications: CLL (chronic lymphocytic leukaemia) Take 180 mg by mouth once daily. Active Comment on above: Take 180 mg by mouth once daily. 60 actuat fluticasone propionate 0.25 mg/actuat / salmeterol 0.05 mg/actuat dry powder inhaler (8 sources) Corticosteroid, beta2-Adrenergic Agonist Start: take 1 puff(s) by inhalation twice daily [...] Active Multivitamin (Hair,Nails And Skin Vitamin) Tablet (12 sources) Start: take 1 tablet by mouth once daily Multivitamin (Hair,Nails And Skin Vitamin) Tablet Active 1 TAB PO Daily August 19, 2022 12:00am Complies with drug therapy Start: 08-19-2022 take 1 tablet by kaleb th once daily Multivitamin (Hair,Nails And Skin Vitamin) Tablet Active 1 TAB PO Daily August 18, 2022 11:00pm Start: 08-19-2022 take 1 tablet by kaleb th once daily Multivitamin (Hair,Nails And Skin Vitamin) Tablet Active 1 TAB PO Daily August 19, 2022 12:00am nadolol 40 mg oral tablet (20 sources) beta-Adrenergic Mae Start: 12-11-2023 take 1 tablet by mouth twice daily Nadolol 40 mg tablet Active 0 .ROUTE .COMPLEX 180 December 11, 2023 8:01pm TAKE 1 TABLET BY MOUTH TWICE A DAY Complies with drug therapy Start: 06-17-2023 End: 12-11-2023 take 1 tablet [...] 17, 2023 9:50am take 1 tablet by kaleb th in the morning nadolol (Corgard) 20 MG tablet Take 20 mg by mouth in the morning and 20 mg before bedtime. Active take 2 tablets by mo uth once daily nadolol (CORGARD) 40 mg tablet Take 80 mg by mouth once daily. Active Nadolol 40 mg TA KE 1 TABLET TWICE A DAY Active Nadolol Active take 1 tablet by kaleb th once daily nadolol (CORGARD) 80 MG Tab take 80 mg by mouth daily. 0 Active Comment on above: Take 80 mg by mouth once daily. omeprazole 40 mg delayed release oral capsule (8 sources) Proton Pump Inhibitor Omeprazole 40 mg capsule Indications: Chronic lymphocytic leukemia (HCC) Take 40 mg by mouth. Active Comment on above: Take 40 mg by mouth. Pure Comfort Spacer Chamber - (20 sources) Start: 03-23-19 Pure Comfort Spacer Chamber - as directed as directed as directed for 30 days Mar, Active sennosides, nursing home 8.6 mg oral tablet (2 sources) Start: 10-23-19 take 1 tablet by mouth once daily at bedtime Sennosides (Senokot) 8.6 mg tablet Active 8.6 MG PO Daily at bedtime October 22, 2024 12:00am Complies with drug therapy terbinafine 250 mg oral tablet (11 sources) Allylamine Antifungal take 1 tablet by mouth every twenty-four hours Terbinafine HCl 250 MG 1 tablet Orally Once a day Active triamcinolone acetonide 0.001 mg/mg topical ointment (20 sources) Corticosteroid Start: 05-02-19 25 triamcinolone (Kenalog) 0.1 % ointment Apply topically 2 (two) times a day as needed for irritation 05/02/2024 Active Start: 05-02-2024 End: 10-22-2024 Triamcinolone Acetonide 0.1 % ointment Discontinued 1 APPLIC TOPICAL Twice daily 45 10 May 02, 2024 1:00am October 22, 2024 2:35pm Triamcinolone Ac etonide 0.1 % 1 application Externally Two times a Week Active Triamcinolone Ac etonide 0.1 % 1 application Externally Two times a Week Active vitamin b (2 sources) Start: 10-22-2024 vitamin b Acti ve PO October 22, 2024 12:00am Complies with drug therapy Start: 10-22-2024 Vitamin E (7 sources) Start: 08-19-2022 take 45 mg by mouth once daily Vitamin E Active 45 MG PO Daily August 19, 2022 12:00am Completed/Discontinued Medications Medication Drug Class(es) Dates Sig (Normalized) Sig (Original) amoxicillin 875 mg oral tablet (2 sources) Penicillin-class Antibacterial Start: 5 End: 5 take 1 tablet by mouth twice daily Amoxicillin 875 mg tablet Discontinued 875 MG PO Twice daily 14 September 03, 2024 12:00am October 22, 2024 2:34pm betamethasone 0.5 mg/ml / clotrimazole 10 mg/ml topical cream (20 sources) Azole Antifungal, Corticosteroid Start: 2 Clotrimazole-Betameth asone 1-0.05 % 1 application Externally Twice a day for 5 day(s) Dec, Not-Taking/PRN cholecalciferol 0.025 mg oral capsule (12 sources) Vitamin D Start: 3 End: 5 take 1 capsule by mouth once daily Cholecalciferol (Vitamin D3) (Vitamin D3) 25 mcg (1,000 unit) Capsule Discontinued 25 MCG PO Daily August 19, 2022 12:00am October 22, 2024 2:34pm doxycycline hyclate 100 mg oral capsule (4 sources) Tetracycline-class Drug Start: 5 End: 5 take 1 capsule by mouth twice daily Doxycycline Hyclate 100 mg capsule Discontinued 100 MG PO Twice daily 14 May 10, 2024 1:00am July 30, 2024 9:13am fluconazole 100 mg oral tablet (3 sources) [...] EVERY DAY gabapentin 100 mg oral capsule (10 sources) Anti-epileptic Agent Start: 4 End: 4 take 1 capsule by mouth once daily at bedtime as needed Gabapentin 100 mg capsule Discontinued 100 MG PO Daily at bedtime as needed for RLS June 20, 2023 12:00am November 25, 2023 [...] 40 MG PO Daily June 17, 2023 1:09pm October 19, 2023 9:49am Start: 10-25-2018 End: 05-11-[address] (PROTONIX) 2 0 mg tablet Pantoprazole Sod ium Active predniSONE 20 mg oral tablet (16 sources) Start: 05-02-2024 End: 05-10-2024 Prednisone 20 mg tablet Discontinued 20 MG PO As Directed 01 25May 02, 2024 1:00am May 10, 2024 1:51pm 1 tab bid w/ food x 4 days, then qd w/ food x 3 days Start: 02-28-2023 take 1 tablet by kaleb twice daily predniSONE 20 MG 1 tablet Orally twice daily w/ food for 5 days Feb, Active Start: 01-12-2023 predniSONE 20 MG 1 tablet Orally twice daily w/ food x 5 days for 5 days Dec, Active sertraline 50 mg oral tablet (20 sources) Serotonin Reuptake Inhibitor Start: 11-25-2023 End: 12-30-2023 take 1 tablet by mouth once daily Sertraline (Zoloft) 50 mg tablet Discontinued 50 MG PO Daily November 25, 2023 12:00am December 30, 2023 12:41pm Start: 11-02-2023 End: 03-09-2024 take 1.5 tablets [...] Comment on above: TAKE 1 TABLET BY [facility] TWICE A DAY FOR 10 DAYS 24 hr venlafaxine 37.5 mg extended release oral capsule (7 sources) Serotonin and Norepinephrine Reuptake Inhibitor Start: 10-19-2023 End: 11-25-2023 take 1 capsule by mouth once daily in the morning Venlafaxine 37.5 mg capsule,extended release 24hr Discontinued 37.5 MG PO Every morning 14 14 October 19, 2023 12:00am November 25, 2023 10:47am Vitamin E 400 unit Tablet (5 sources) Start: 08-19-2022 End: 10-22-2024 Vitamin E 400 unit Tablet Discontinued 45 MG PO Daily August 19, 2022 12:00am October 22, 2024 2:35pm Start: 08-19-2022 Vitamin E 400 unit Tablet Active 45 MG PO Daily August 19, 2022 12:00am Start: 08-19-2022 Vitamin E 400 unit Tablet Active 45 MG PO Daily August 18, 2022 11:00pm Problems Active Problems Problem Classification Problem Date Documented Date Episodic/Chronic Acute and chronic tonsillitis (11 sources) Cryptic tonsil; Translations: [Other chronic diseases of tonsils and adenoids] 06-20-2023 Chronic Acute bronchitis (8 sources) Acute bronchitis; Translations: [Acute bronchitis due to other specified organisms] Onset: 10-05-19 15 09-03-2024 Episodic Allergic reactions (6 sources) Unspecified contact dermatitis, unspecified cause; Translations: [Allergy to bee venom] Onset: 11-12-19 16 Episodic Anxiety disorders (20 sources) Generalized anxiety disorder; Translations: [Generalized anxiety disorder] Onset: 09-21-19 24 Chronic Cardiac dysrhythmias (2 sources) Supraventricular tachycardia; Translations: [Supraventricular tachycardia] Onset: 01-09-20 14 Chronic Cardiac dysrhythmias (20 sources) Intermittent palpitations; Translations: [Palpitations] Episodic Cataract (15 sources) Age-related nuclear cataract, right eye; Translations: [Age-related nuclear cataract, left eye] Onset: 03-26-19 22 Chronic Chronic obstructive pulmonary disease and bronchiectasis [...] OBJ INT] Onset: 02-11-20 Episodic Esophageal disorders (16 sources) Gastroesophageal reflux disease; Translations: [Gastro-esophageal reflux [...] that caused by tuberculosis or sexually transmitteddisease) (7 sources) Keratoconjunctivitis sicca; Translations: [Keratoconjunctivitis sicca, not specified as Sjogren's, bilateral] Onset: 03-09-20 24 03-09-2024 Chronic Intracranial injury (20 sources) Concussion with no loss of consciousness; Translations: [Concussion without loss of consciousness, initial encounter] Episodic Leukemias (20 sources) Chronic lymphoid leukemia, disease; Translations: [Chronic lymphocytic leukemia of B-cell type not having achieved remission] Onset: 08-21-19 15 Chronic Menopausal disorders (2 sources) Atrophy of vagina; Translations: [Postmenopausal atrophic vaginitis] 07-25-2024 Chronic Miscellaneous mental health disorders (2 sources) [...] Translations: [Vitamin D deficiency, unspecified] Onset: 08-16-19 Chronic Other aftercare (1 source) Other long-term (current) drug therapy; Translations: [OTH TELECOMMUNICATION LINES REPAIRER CURRENT DRUG THERAPY] Onset: 02-11-20 Episodic Other [...] 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] Episodic Other and unspecified benign neoplasm (6 sources) Lipoma of back; Translations: [Benign lipomatous neoplasm of skin and subcutaneous tissue of trunk] 07-25-2024 Episodic Other and unspecified benign neoplasm (1 source) Benign lipomatous neoplasm of skin and subcutaneous tissue of trunk; Translations: [Lipoma of other specified sites] 07-30-2024 Episodic Other bone disease and musculoskeletal deformities (20 sources) Other specified disorders of bone density and structure, right thigh; Translations: [OTH D/O BONE DEN STRUCT RT THIGH] Onset: 08-15-19 Episodic Other bone disease and musculoskeletal deformities (20 sources) Other specified disorders of bone density and structure, left thigh; Translations: [OTH D/O BONE DEN STRUCT LT THIGH] Onset: 08-15-19 Episodic Other bone disease and musculoskeletal deformities (2 sources) Osteopenia; Translations: [Other specified disorders of bone density and structure, right thigh] 07-25-2024 Episodic Other circulatory disease (7 sources) Raynaud's phenomenon; Translations: [Raynaud's syndrome without gangrene] 11-25-2023 Chronic Other circulatory disease (1 source) Raynaud's syndrome without gangrene; Translations: [Raynaud's syndrome] 11-25-2023 Chronic Other connective tissue disease (1 source) Pain in right foot Episodic Other connective tissue disease (2 sources) Pain in right leg; Translations: [Pain in limb] Onset: 08-16-1907-30-2024 Episodic Other connective tissue disease (1 source) Pain in bilateral legs; Translations: [Pain in right leg] 07-30-2024 Episodic Other ear and sense organ disorders [...] diseases of intestine] Episodic Other gastrointestinal disorders (9 sources) Constipation; Translations: [Constipation, unspecified] 10-19-2023 Episodic Other gastrointestinal disorders (3 sources) Constipation, unspecified; Translations: [Constipation, unspecified] 10-19-2023 Episodic Other hereditary and degenerative nervous system conditions (12 sources) Restless legs; Translations: [Restless legs syndrome] [...] nodule; Translations: [SOLITARY PULMONARY NODULE] Onset: 09-24-19 22 Episodic Other lower respiratory disease (20 sources) [...] Translations: [Rhytides] 12-20-2016 Episodic Other skin disorders (4 sources) Seborrheic keratosis; Translations: [Other seborrheic keratosis] 02-09-2024 Episodic Other skin disorders (2 sources) Lentiginosis; Translations: [Other melanin hyperpigmentation] 02-09-2024 Episodic Other skin disorders (2 sources) Milia; Translations: [Epidermal cyst] 07-09-2024 Episodic Other skin disorders (2 sources) Actinic keratosis; Translations: [Actinic keratosis] 07-09-2024 Episodic Other upper respiratory infections (2 sources) Acute pharyngitis; Translations: [Acute pharyngitis due to other specified organisms] Episodic Peripheral and visceral atherosclerosis (3 sources) Intermittent claudication of bilateral lower limbs co-occurrent and due to atherosclerosis; Translations: [Atherosclerosis of rampart arteries of extremities with intermittent claudication, bilateral legs] 07-30-2024 Chronic Poisoning by nonmedicinal substances (1 source) Toxic [...] Translations: [Other specified cough] Onset: 01-23-20 16 Viral infection (6 sources) COVID-19; Translations: [Disease caused by 2019-nCoV] Onset: 03-17-20 21 Past or Other Problems Problem Classification Problem Date Documented Da te Episodic/Chronic Inflammation; infection of eye (except that caused by tuberculosis or sexually transmitteddisease) (7 sources) Blepharitis of upper and lower eyelids of bilateral eyes; Translations: [Unspecified blepharitis right eye, upper and lower eyelids] Onset: 03-09-2024 03-09-2024 Episodic Malaise and fatigue (1 source) Weakness; Translations: [...] Test Name Value Interpretation Reference Range Facility US arterial pvr rest [place] US arterial pvr rest LE [facility] Main [place] [address] [place] [address] Ultrasound Report Signed Patient: Nadeen Oquendo MR#: [id number] : 1950 Acct:[id number] Age/Sex: 73 / F ADM Date: 08/15/24 Loc: Room: Type: [facility] Attending Dr: Schuyler Barlow DO Ordering Provider: Schuyler Barlow DO Date of Service: 08/15/24 US/US arterial pvr rest LE: M79.604 - Pain in right leg Copies to: Schuyler Barlow DO LOWER EXTREMITY SEGMENTAL ARTERIAL DOPSCAN (PVR) INDICATION: [...] pedis artery with ankle- brachial index of 1.16 1.16 . Pressures throughout the left leg are 156 at the high thigh, at the 166 low thigh, 157 at the calf and 146 at the ankle using the posterior tibial artery, and 151 at the ankle using the dorsalis pedis artery with ankle-brachial index of 1.09 1.13 . Wave forms by plethysmography are normal. US/US arterial pvr rest LE IMPRESSION: NO HEMODYNAMICALLY SIGNIFICANT PERIPHERAL VASCULAR OCCLUSIVE DISEASE AT REST IN EITHER LOWER EXTREMITY. Impression dictated by: Humphrey Narvaez M.D. 08/17/2024 11:13 AM Dictation Location: [place] [address] Tech: Elena Graff Transcribed By: NICK 08/17/241112 Dictated By: Humphrey Narvaez MD 08/17/24 111 Signed By: 08/17/24 111 Normal [facility] No [facility] 07-09 [facility] Bas[facility] Auto (Bld) [#/Vol] on 05-14-2024 Basophils (Bld) [#/Vol] Automated basophil count <0.11 [facility] Basophils/100 WBC Auto (Bld) on 05-14-2024 Basophils/100 WBC (Bld) Automated basophil % [facility] Blood manual differential co mment interpretation narrativeon 05-14-2024 Manual differential comment Charan (Bld) [Interp] Blood manual differential comment interpretation narrative [facility] CBC W Auto Differential pane l (Bld)on 05-14-2024 Basophils (Bld) [#/Vol] 0.00 10*3/uL Normal <0.11 [facility] Comment on above: Order Comment: Speci men Type: BLOOD SPECIMEN Ordering Facility: [facility] Address: [address] [place] [address] Performed By: #### 5 7021-8 #### [facility] CLIA [id number] [address] [place] [address] LAB CLIA [id number] [address] [place] [address] [place] Basophils/100 WBC (Bld) 0.0 % Normal [facility] Comment on above: Order Comment: Speci men Type: BLOOD SPECIMEN Ordering Facility: [facility] Address: [address] [place] [address] Performed By: #### 5 7021-8 #### [facility] CLIA [id number] [address] [place] [address] LAB CLIA [id number] [address] [place] [address] [place] Differential cell count method Nom (Bld) Manual Normal [facility] Comment on above: Order Comment: Speci men Type: BLOOD SPECIMEN Ordering Facility: [facility] Address: [address] [place] [address] Performed By: #### 5 7021-8 #### [facility] CLIA [id number] [address] [place] [address] LAB CLIA [id number] [address] [place] [address] [place] Eosinophils (Bld) [#/Vol] 0.30 10*3/uL Normal <0.46 [facility] Comment on above: Order Comment: Speci men Type: BLOOD SPECIMEN Ordering Facility: [facility] Address: [address] [place] [address] Performed By: #### 5 7021-8 #### [facility] CLIA [id number] [address] [place] [address] LAB CLIA [id number] [address] [place] [address] [place] Eosinophils/100 WBC (Bld) 1.0 % Normal [facility] Comment on above: Order Comment: Speci men Type: BLOOD SPECIMEN Ordering Facility: [facility] Address: [address] [place] [address] Performed By: #### 5 7021-8 #### [facility] CLIA [id number] [address] [place] [address] LAB CLIA [id number] [address] [place] [address] [place] Erythrocyte distribution width (RBC) [Ratio] 13.5 % Normal 11.5-15.0 [facility] Comment on above: Order Comment: Speci men Type: BLOOD SPECIMEN Ordering Facility: [facility] Address: [address] [place] [address] Performed By: #### 5 7021-8 #### [facility] CLIA [id number] [address] [place], [place] [id number] [facility] CLIA [id number] [address] [place] [address] [place] Hematocrit (Bld) [Volume fraction] 39.2 % Normal 36.0-46.0 [facility] Comment on above: Order Comment: Speci men Type: BLOOD SPECIMEN Ordering Facility: [facility] Address: [address] [place] [address] Performed By: #### 5 7021-8 #### [facility] CLIA [id number] [address] [place], [place] [address] LAB CLIA [id number] [address] [place] [address] [place] Hemoglobin (Bld) [Mass/Vol] 13.1 g/dL Normal 11.5-15.5 [facility] Comment on above: Order Comment: Speci men Type: BLOOD SPECIMEN Ordering Facility: [facility] Address: [address] [place] [address] Performed By: #### 5 7021-8 #### [facility] CLIA [id number] [address] [place] [address] LAB CLIA [id number] [address] [place] [address] [place] Lymphocytes (Bld) [#/Vol] 23.74 10*3/uL High 1.00-4.00 [facility] Comment on above: Order Comment: Speci men Type: BLOOD SPECIMEN Ordering Facility: [facility] Address: [address] [place] [address] Performed By: #### 5 7021-8 #### [facility] CLIA [id number] [address] [place] [address] LAB CLIA [id number] [address] [place], [place] [address] [place] Lymphocytes/100 WBC (Bld) 78.0 % Normal [facility] Comment on above: Order Comment: Speci men Type: BLOOD SPECIMEN Ordering Facility: [facility] Address: [address] [place] [address] Performed By: #### 5 7021-8 #### [facility] CLIA [id number] [address] [place] [address] LAB CLIA [id number] [address] [place] [address] [place] MCH (RBC) [Entitic mass] 31.8 pg Normal 26.0-34.0 [facility] Comment on above: Order Comment: Speci men Type: BLOOD SPECIMEN Ordering Facility: [facility] Address: [address] [place] [address] Performed By: #### 5 7021-8 #### [facility] CLIA [id number] [address] [place] [address] LAB CLIA [id number] [address] [place] [address] [place] MCHC (RBC) [Mass/Vol] 33.4 g/dL Normal 30.5-36.0 [facility] Comment on above: Order Comment: Speci men Type: BLOOD SPECIMEN Ordering Facility: [facility] Address: [address] [place] [address] Performed By: #### 5 7021-8 #### [facility] CLIA [id number] [address] [place] [address] LAB CLIA [id number] [address] [place] [address] [place] MCV (RBC) [Entitic vol] 95.1 fL Normal 80.0-100.0 [facility] Comment on above: Order Comment: Speci men Type: BLOOD SPECIMEN Ordering Facility: [facility] Address: [address] [place] [address] Performed By: #### 5 7021-8 #### [facility] CLIA [id number] [address] [place] [address] [facility] CLIA [id number] [address] [place], [place] [address] [place] Monocytes (Bld) [#/Vol] 0.91 10*3/uL High <0.87 [facility] Comment on above: Order Comment: Speci men Type: BLOOD SPECIMEN Ordering Facility: [facility] Address: [address] [place] [address] Performed By: #### 5 7021-8 #### [facility] CLIA [id number] [address] [place] [address] LAB CLIA [id number] [address] [place] [address] [place] Monocytes/100 WBC (Bld) 3.0 % Normal [facility] Comment on above: Order Comment: Speci men Type: BLOOD SPECIMEN Ordering Facility: [facility] Address: [address] [place] [address] Performed By: #### 5 7021-8 #### [facility] CLIA [id number] [address] [place] [address] LAB CLIA [id number] [address] [place] [address] [place] Neutrophils (Bld) [#/Vol] 5.48 10*3/uL Normal 1.45-7.50 [facility] Comment on above: Order Comment: Speci men Type: BLOOD SPECIMEN Ordering Facility: [facility] Address: [address] [place] [address] Performed By: #### 5 7021-8 #### [facility] CLIA [id number] [address] [place] [address] LAB CLIA [id number] [address] [place] [address] [place] Neutrophils/100 WBC (Bld) 18.0 % Normal [facility] Comment on above: Order Comment: Speci men Type: BLOOD SPECIMEN Ordering Facility: [facility] Address: [address] [place] [address] Performed By: #### 5 7021-8 #### [facility] CLIA [id number] [address] [place] [address] LAB CLIA [id number] [address] [place] [address] [place] Nucleated RBC (Bld) [#/Vol] 10*3/uL Normal <0.01 [facility] Comment on above: Order Comment: Speci men Type: BLOOD SPECIMEN Ordering Facility: [facility] Address: [address] [place] [address] Performed By: #### 5 7021-8 #### [facility] CLIA [id number] [address] [place] [address] LAB CLIA [id number] [address] [place] [address] [place] Nucleated RBC/100 WBC (Bld) [Ratio] 0.0 /100 WBC Normal [facility] Comment on above: Order Comment: Speci men Type: BLOOD SPECIMEN Ordering Facility: [facility] Address: [address] [place] [address] Performed By: #### 5 7021-8 #### [facility] CLIA [id number] [address] [place] [address] LAB CLIA [id number] [address] [place] [address] [place] Ovalocytes LM Ql (Bld) Few Normal [facility] Comment on above: Order Comment: Speci men Type: BLOOD SPECIMEN Ordering Facility: [facility] Address: [address] [place] [address] Performed By: #### 5 7021-8 #### [facility] CLIA [id number] [address] [place] [address] LAB CLIA [id number] [address] [place] [address] [place] Platelet mean volume (Bld) [Entitic vol] 9.3 fL Normal 9.0-12.7 [facility] Comment on above: Order Comment: Speci men Type: BLOOD SPECIMEN Ordering Facility: [facility] Address: [address] [place] [address] Performed By: #### 5 7021-8 #### [facility] CLIA [id number] [address] [place] [address] LAB CLIA [id number] [address] [place] [address] [place] Platelets (Bld) [#/Vol] 180 10*3/uL Normal 150-400 [facility] Comment on above: Order Comment: Speci men Type: BLOOD SPECIMEN Ordering Facility: [facility] Address: [address] [place] [address] Performed By: #### 5 7021-8 #### [facility] CLIA [id number] [address] [place] [address] LAB CLIA [id number] [address] [place] [address] [place] Platelets Estimate (Bld) [#/Vol] Adequate Normal [facility] Comment on above: Order Comment: Speci men Type: BLOOD SPECIMEN Ordering Facility: [facility] Address: [address] [place] [address] Performed By: #### 5 7021-8 #### [facility] CLIA [id number] [address] [place] [address] LAB CLIA [id number] [address] [place] [address] [place] RBC (Bld) [#/Vol] 4.12 10*6/uL Normal 3.90-5.20 [facility] Comment on above: Order Comment: Speci men Type: BLOOD SPECIMEN Ordering Facility: [facility] Address: [address] [place] [address] Performed By: #### 5 7021-8 #### [facility] CLIA [id number] [address] [place] [address] LAB CLIA [id number] [address] [place] [address] [place] RED CELL MORPH Reviewed: see result s of individual morphologies Normal [facility] Comment on above: Order Comment: Speci men Type: BLOOD SPECIMEN Ordering Facility: [facility] Address: [address] [place] [address] Performed By: #### 5 7021-8 #### [facility] CLIA [id number] [address] [place] [address] LAB CLIA [id number] [address] [place] [address] [place] WBC (Bld) [#/Vol] 30.44 10*3/uL High 3.70-11.00 [facility] Comment on above: Order Comment: Speci men Type: BLOOD SPECIMEN Ordering Facility: [facility] Address: [address] [place] [address] Performed By: #### 5 7021-8 #### [facility] CLIA [id number] [address] [place] [address] LAB CLIA [id number] [address] [place] [address] [place] CNOVSPon 05-14-2024 CNOVSP Visit (SP) Office ([place]) NADEEN OQUENDO ([id number]) 1950 F Date Time Provider Department 05/14/24 10:40 AM FERNANDO HANNA During your visit today, we recorded the following information about you: Temperature Pulse Respiration Blood pressure 97.3 degrees 60/minute 16/minute 140/74 Weight Height 62.7 kg 1.753 m Fernando Hanna MD 05/14/2024 8:13 PM Signed NAME: Nadeen Oquendo CLINIC NO.: [id number] DATE OF SERVICE: May 14, 2024 (Jaime) [...] and labs are stable. 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 [...] in the next week. 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 [...] area is (more content not included)... Normal [facility] Comprehensive metabolic 2000 panelon 05-14-2024 Albumin [Mass/Vol] 4.4 g/dL Normal 3.9-4.9 [facility] Comment on above: Order Comment: Speci men Type: BLOOD SPECIMEN Ordering Facility: [facility] Address: [address] [place] [address] Performed By: #### 2 532-0, 13343-5, 3083-03 #### [facility] CLIA [id number] [address] [place], [place] [address] [place] [address] [place] ALP [Catalytic activity/Vol] 84 U/L Normal 34-123 [facility] Comment on above: Order Comment: Speci men Type: BLOOD SPECIMEN Ordering Facility: [facility] Address: [address] [place] [address] Performed By: #### 2 532-0, 27169-5, 3083- #### [facility] CLIA [id number] [address] [place], [place] [address] [place] ALT [Catalytic activity/Vol] 18 U/L Normal 7-38 [facility] Comment on above: Order Comment: Speci men Type: BLOOD SPECIMEN Ordering Facility: [facility] Address: [address] [place] [address] Performed By: #### 2 532-0, 20197-2, 3083- #### [facility] CLIA [id number] [address] [place], [place] [address] [place] Anion gap [Moles/Vol] 9 mmol/L Normal 8-15 [facility] Comment on above: Order Comment: Speci men Type: BLOOD SPECIMEN Ordering Facility: [facility] Address: [address] [place] [address] Performed By: #### 2 532-0, 46050-2, 3083-03 #### [facility] CLIA [id number] [address] [place] [address] [place] AST [Catalytic activity/Vol] 22 U/L Normal 13-35 [facility] Comment on above: Order Comment: Speci men Type: BLOOD SPECIMEN Ordering Facility: [facility] Address: [address] [place] [address] Performed By: #### 2 532-0, 44481-1, 3083-03 #### [facility] CLIA [id number] [address] [place], [place] [address] [place] Bilirubin [Mass/Vol] 0.4 mg/dL Normal 0.2-1.3 [facility] Comment on above: Order Comment: Speci men Type: BLOOD SPECIMEN Ordering Facility: [facility] Address: [address] [place] [address] Performed By: #### 2 532-0, 02851-5, 3083- #### [facility] CLIA [id number] [address] [place], [place] [address] [place] Calcium [Mass/Vol] 9.1 mg/dL Normal 8.5-10.2 [facility] Comment on above: Order Comment: Speci men Type: BLOOD SPECIMEN Ordering Facility: [facility] Address: [address] [place] [address] Performed By: #### 2 532-0, 33241-3, 3084-1 #### [facility] CLIA [id number] [address] [place] [address] [place] Chloride [Moles/Vol] 100 mmol/L Normal 98-107 [facility] Comment on above: Order Comment: Speci men Type: BLOOD SPECIMEN Ordering Facility: [facility] Address: [address] [place] [address] Performed By: #### 2 532-0, 44905-6, 3083-1 #### [facility] CLIA [id number] [address] [place] [address] [place] CO2 [Moles/Vol] 24 mmol/L Normal 22-30 [facility] Comment on above: Order Comment: Speci men Type: BLOOD SPECIMEN Ordering Facility: [facility] Address: [address] [place] [address] Performed By: #### 2 532-0, 77654-9, 3083-1 #### [facility] CLIA [id number] [address] [place] [address] [place] Creatinine [Mass/Vol] 0.74 mg/dL Normal 0.58-0.96 [facility] Comment on above: Order Comment: Speci men Type: BLOOD SPECIMEN Ordering Facility: [facility] Address: [address] [place] [address] Performed By: #### 2 532-0, 98748-8, 308-1 #### [facility] CLIA [id number] [address] [place] [address] [place] Creatinine and Glomerular filtration rate.predicted panel (S/P/Bld) 84 mL/min/1.73m??? Normal >=60 [facility] Comment on above: Order Comment: Nando mike Type: BLOOD SPECIMEN Ordering Facility: [facility] Address: [address] [place] [address] Result Comment: Juliann mated Glomerular Filtration Rate [...] actual GFR. Performed By: #### 2 532-0, 33714-2, 308-1 #### [facility] CLIA [id number] [address] [place] [address] [place] Glucose [Mass/Vol] 85 mg/dL Normal 74-99 [facility] Comment on above: Order Comment: Nando mike Type: BLOOD SPECIMEN Ordering Facility: [facility] Address: [address] [place] [address] Result Comment: The [place] [employer] (ADA) provides guidance for cutoff [...] Standards of Medical Care in Diabetes 2016, [place] [employer]. Diabetes Care. 2016.39(Suppl 1). Performed By: #### 2 532-0, 70065-6, 308-1 #### [facility] CLIA [id number] [address] [place] [address] [place] Potassium [Moles/Vol] 4.6 mmol/L Normal 3.7-5.1 [facility] Comment on above: Order Comment: Speci men Type: BLOOD SPECIMEN Ordering Facility: [facility] Address: [address] [place] [address] Performed By: #### 2 532-0, 44870-5, 3083-03 #### [facility] CLIA [id number] [address] [place] [address] [place] Protein [Mass/Vol] 6.3 g/dL Normal 6.3-8.0 [facility] Comment on above: Order Comment: Speci men Type: BLOOD SPECIMEN Ordering Facility: [facility] Address: [address] [place] [address] Performed By: #### 2 532-0, 90785-3, 3083-03 #### [facility] CLIA [id number] [address] [place] [address] [place] Sodium [Moles/Vol] 133 mmol/L Low 136-144 [facility] Comment on above: Order Comment: Speci men Type: BLOOD SPECIMEN Ordering Facility: [facility] Address: [address] [place] [address] Performed By: #### 2 532-0, 17386-7, 3083-03 #### [facility] CLIA [id number] [address] [place] [address] [place] Urea nitrogen [Mass/Vol] 14 mg/dL Normal 7-21 [facility] Comment on above: Order Comment: Speci men Type: BLOOD SPECIMEN Ordering Facility: [facility] Address: [address] [place] [address] Performed By: #### 2 532-0, 23432-4, 3083-03 #### [facility] CLIA [id number] [address] [place] [address] [place] Eosinophils/100 WBC Auto (Bl d)on 05-14-2024 Eosinophils/100 WBC (Bld) Automated eosinophil % [facility] Erythrocyte distribution wid th Auto (RBC) [Ratio]on 05-14-2024 Erythrocyte distribution width (RBC) [Ratio] Erythrocyte distribution width [Ratio] by Automated count 11.5-15.0 [facility] Hematocrit Auto (Bld) [Volum e fraction]on 05-14-2024 Hematocrit (Bld) [Volume fraction] Hematocrit [Volume Fraction] of Blood by Automated count 36.0-46.0 [facility] Hemoglobin [Mass/volume] in Bloodon 05-14-2024 Hemoglobin (Bld) [Mass/Vol] Hemoglobin [Mass/volume] in Blood 11.5-15.5 [facility] LDH SerPl-cCncon 05-14-2024 LDH [Catalytic activity/Vol] 206 U/L Normal 135-214 [facility] Comment on above: Order Comment: Speci men Type: BLOOD SPECIMEN Ordering Facility: [facility] Address: [address] [place] [address] Performed By: #### 2 532-0, 71977-9, 3084-1 #### [facility] CLIA [id number] [address] [place] [address] [place] Laboratory - Chemistry and C hemistry - challengeon 05-14-2024 Albumin [Mass/Vol] 4.4 g/dL 3.9-4.9 [facility] ALP [Catalytic activity/Vol] 84 U/L 34-123 [facility] ALT [Catalytic activity/Vol] 18 U/L 7-38 [facility] AST [Catalytic activity/Vol] 22 U/L 13-35 [facility] Bilirubin [Mass/Vol] 0.4 mg/dL 0.2-1.3 [facility] Calcium [Mass/Vol] 9.1 mg/dL 8.5-10.2 [facility] Chloride [Moles/Vol] 100 mmol/L 98-107 [facility] CO2 [Moles/Vol] 24 mmol/L 22-30 [facility] Creatinine [Mass/Vol] 0.74 mg/dL 0.58-0.96 [facility] Glucose [Mass/Vol] 85 mg/dL 74-99 [facility] Comment on above: The [place] [employer] (ADA) provides guidance for [...] Standards of Medical Care in Diabetes 2016, [place] [employer]. Diabetes Care. 2016.39(Suppl 1). LDH [Catalytic activity/Vol] 206 U/L 135-214 [facility] Potassium [Moles/Vol] 4.6 mmol/L 3.7-5.1 [facility] Sodium [Moles/Vol] 133 mmol/L Low 136-144 [facility] Urate [Mass/Vol] 3.5 mg/dL 2.5-6.6 [facility] Urea nitrogen [Mass/Vol] 14 mg/dL 7-21 [facility] Laboratory - Hematology and Cell countson 05-14-2024 Eosinophils (Bld) [#/Vol] 0.30 10*3/uL <0.46 [facility] Leukocytes [#/volume] correc dudley for nucleated erythrocytes in Blood by Automated counon 05-14-2024 WBC corrected for nucl RBC Auto (Bld) [#/Vol] Leukocytes [#/volume] corrected for nucleated erythrocytes in Blood by Automated coun High 3.70-11.00 [facility] Lymphocytes Auto (Bld) [#/Vo l]on 05-14-2024 Lymphocytes (Bld) [#/Vol] Lymphocytes [#/volume] in Blood by Automated count High 1.00-4.00 [facility] Lymphocytes/100 WBC Auto (Bl d)on 05-14-2024 Lymphocytes/100 WBC (Bld) Lymphocytes/100 leukocytes in Blood by Automated count [facility] MCH Auto (RBC) [Entitic mass ]on 05-14-2024 MCH (RBC) [Entitic mass] MCH [Entitic mass] by Automated count 26.0-34.0 [facility] MCHC Auto (RBC) [Mass/Vol]on 05-14-2024 MCHC (RBC) [Mass/Vol] MCHC [Mass/volume] by Automated count 30.5-36.0 [facility] MCV Auto (RBC) [Entitic vol] on 05-14-2024 MCV (RBC) [Entitic vol] MCV [Entitic volume] by Automated count 80.0-100.0 [facility] Monocytes Auto (Bld) [#/Vol] on 05-14-2024 Monocytes (Bld) [#/Vol] Automated blood monocyte count High <0.87 [facility] Monocytes/100 WBC Auto (Bld) on 05-14-2024 Monocytes/100 WBC (Bld) Automated monocyte % [facility] Neutrophils Auto (Bld) [#/Vo l]on 05-14-2024 Neutrophils (Bld) [#/Vol] Neutrophils [#/volume] in Blood by Automated count 1.45-7.50 [facility] Neutrophils/100 WBC Auto (Bl d)on 05-14-2024 Neutrophils/100 WBC (Bld) Automated neutrophil % [facility] No Panel Informationon 05-14 Estimated GFR (CKD-EPI) 84 mL/min/1.73m??? >=60 [facility] Comment on above: Estimated Glomerular Filtration Rate [...] see results of individual morphologies [facility] Nucleated RBC Auto (Bld) [#/ Vol]on 05-14-2024 Nucleated RBC (Bld) [#/Vol] Nucleated erythrocytes [#/volume] in Blood by Automated count <0.01 [facility] Nucleated erythrocytes [Pres ence] in Blood by Automated counton 05-14-2024 Nucleated RBC Auto Ql (Bld) Nucleated erythrocytes [Presence] in Blood by Automated count [facility] Ovalocyte detectionon 2024 Ovalocytes LM Ql (Bld) Ovalocyte detection [facility] Platelet adequacy [Presence] in Blood by Light microscopyon 05-14-2024 Platelets LM Ql (Bld) Platelet adequacy [Presence] in Blood by Light microscopy [facility] Platelet mean volume Auto (B ld) [Entitic vol]on 05-14-2024 Platelet mean volume (Bld) [Entitic vol] Platelet mean volume [Entitic volume] in Blood by Automated count 9.0-12.7 [facility] Platelets Auto (Bld) [#/Vol] on 05-14-2024 Platelets (Bld) [#/Vol] Platelets [#/volume] in Blood by Automated count 150-400 [facility] Protein [Mass/volume] in Ser um or Plasmaon 05-14-2024 Protein [Mass/Vol] Protein [Mass/volume ] in Serum or Plasma 6.3-8.0 [facility] RBC Auto (Bld) [#/Vol]on RBC (Bld) [#/Vol] Erythrocytes [#/volu me] in Blood by Automated count 3.90-5.20 [facility] Serum or plasma anion gap de terminationon 05-14-2024 Anion gap [Moles/Vol] Serum or plasma anion gap determination 8-15 [facility] Urate SerPl-mCncon Urate [Mass/Vol] 3.5 mg/dL Normal 2.5-6.6 [facility] Comment on above: Order Comment: Speci men Type: BLOOD SPECIMEN Ordering Facility: [facility] Address: [address] [place] [address] Performed By: #### 2 532-0, 32504-7, 3084-1 #### [facility] CLIA [id number] [address] [place] [address] [place] Basophils Auto (Bld) [#/Vol] on 11-07-2023 Basophils (Bld) [#/Vol] 0.24 10*3/uL High <0.11 [facility] Basophils/100 WBC Auto (Bld) on 11-07-2023 Basophils/100 WBC (Bld) 1.0 % [facility] Blood manual differential co mment interpretation narrativeon 11-07-2023 Manual differential comment Charan (Bld) [Interp] Manual [facility] CBC W Auto Differential pane l (Bld)on 11-07-2023 Basophils (Bld) [#/Vol] 0.24 10*3/uL High <0.11 [facility] Comment on above: Order Comment: Speci men Type: BLOOD SPECIMEN Ordering Facility: [facility] Address: [address] [place] [address] Performed By: #### 5 7021-8 #### [facility] CLIA [id number] [address] [place] [address] LAB CLIA [id number] [address] [place] [address] [place] Basophils/100 WBC (Bld) 1.0 % Normal [facility] Comment on above: Order Comment: Speci men Type: BLOOD SPECIMEN Ordering Facility: [facility] Address: [address] [place] [address] Performed By: #### 5 7021-8 #### [facility] CLIA [id number] [address] [place] [address] LAB CLIA [id number] [address] [place] [address] [place] Differential cell count method Nom (Bld) Manual Normal [facility] Comment on above: Order Comment: Speci men Type: BLOOD SPECIMEN Ordering Facility: [facility] Address: [address] [place] [address] Performed By: #### 5 7021-8 #### [facility] CLIA [id number] [address] [place] [address] LAB CLIA [id number] [address] [place] [address] [place] Eosinophils (Bld) [#/Vol] 0.00 10*3/uL Normal <0.46 [facility] Comment on above: Order Comment: Speci men Type: BLOOD SPECIMEN Ordering Facility: [facility] Address: [address] [place] [address] Performed By: #### 5 7021-8 #### [facility] CLIA [id number] [address] [place] [address] LAB CLIA [id number] [address] [place], [place] [address] [place] Eosinophils/100 WBC (Bld) 0.0 % Normal [facility] Comment on above: Order Comment: Speci men Type: BLOOD SPECIMEN Ordering Facility: [facility] Address: [address] [place] [address] Performed By: #### 5 7021-8 #### [facility] CLIA [id number] [address] [place] [address] LAB CLIA [id number] [address] [place] [address] [place] Erythrocyte distribution width (RBC) [Ratio] 13.2 % Normal 11.5-15.0 [facility] Comment on above: Order Comment: Speci men Type: BLOOD SPECIMEN Ordering Facility: [facility] Address: [address] [place] [address] Performed By: #### 5 7021-8 #### [facility] CLIA [id number] [address] [place] [address] LAB CLIA [id number] [address] [place] [address] [place] Hematocrit (Bld) [Volume fraction] 41.4 % Normal 36.0-46.0 [facility] Comment on above: Order Comment: Speci men Type: BLOOD SPECIMEN Ordering Facility: [facility] Address: [address] [place] [address] Performed By: #### 5 7021-8 #### [facility] CLIA [id number] [address] [place] [address] LAB CLIA [id number] [address] [place], [place] [address] [place] Hemoglobin (Bld) [Mass/Vol] 14.5 g/dL Normal 11.5-15.5 [facility] Comment on above: Order Comment: Speci men Type: BLOOD SPECIMEN Ordering Facility: [facility] Address: [address] [place] [address] Performed By: #### 5 7021-8 #### [facility] CLIA [id number] [address] [place] [address] LAB CLIA [id number] [address] [place] [address] [place] Lymphocytes (Bld) [#/Vol] 19.06 10*3/uL High 1.00-4.00 [facility] Comment on above: Order Comment: Speci men Type: BLOOD SPECIMEN Ordering Facility: [facility] Address: [address] [place] [address] Performed By: #### 5 7021-8 #### [facility] CLIA [id number] [address] [place] [address] LAB CLIA [id number] [address] [place] [address] [place] Lymphocytes/100 WBC (Bld) 78.0 % Normal [facility] Comment on above: Order Comment: Speci men Type: BLOOD SPECIMEN Ordering Facility: [facility] Address: [address] [place] [address] Performed By: #### 5 7021-8 #### [facility] CLIA [id number] [address] [place] [address] LAB CLIA [id number] [address] [place] [address] [place] MCH (RBC) [Entitic mass] 32.3 pg Normal 26.0-34.0 [facility] Comment on above: Order Comment: Speci men Type: BLOOD SPECIMEN Ordering Facility: [facility] Address: [address] [place] [address] Performed By: #### 5 7021-8 #### [facility] CLIA [id number] [address] [place] [address] LAB CLIA [id number] [address] [place] [address] [place] MCHC (RBC) [Mass/Vol] 35.0 g/dL Normal 30.5-36.0 [facility] Comment on above: Order Comment: Speci men Type: BLOOD SPECIMEN Ordering Facility: [facility] Address: [address] [place] [address] Performed By: #### 5 7021-8 #### [facility] CLIA [id number] [address] [place] [address] LAB CLIA [id number] [address] [place] [address] [place] MCV (RBC) [Entitic vol] 92.2 fL Normal 80.0-100.0 [facility] Comment on above: Order Comment: Speci men Type: BLOOD SPECIMEN Ordering Facility: [facility] Address: [address] [place] [address] Performed By: #### 5 7021-8 #### [facility] CLIA [id number] [address] [place] [address] LAB CLIA [id number] [address] [place] [address] [place] Monocytes (Bld) [#/Vol] 0.49 10*3/uL Normal <0.87 [facility] Comment on above: Order Comment: Speci men Type: BLOOD SPECIMEN Ordering Facility: [facility] Address: [address] [place] [address] Performed By: #### 5 7021-8 #### [facility] CLIA [id number] [address] [place] [address] LAB CLIA [id number] [address] [place] [address] [place] Monocytes/100 WBC (Bld) 2.0 % Normal [facility] Comment on above: Order Comment: Speci men Type: BLOOD SPECIMEN Ordering Facility: [facility] Address: [address] [place] [address] Performed By: #### 5 7021-8 #### [facility] CLIA [id number] [address] [place] [address] LAB CLIA [id number] [address] [place] [address] [place] Neutrophils (Bld) [#/Vol] 4.64 10*3/uL Normal 1.45-7.50 [facility] Comment on above: Order Comment: Speci men Type: BLOOD SPECIMEN Ordering Facility: [facility] Address: [address] [place] [address] Performed By: #### 5 7021-8 #### [facility] CLIA [id number] [address] [place] [address] LAB CLIA [id number] [address] [place] [address] [place] Neutrophils/100 WBC (Bld) 19.0 % Normal [facility] Comment on above: Order Comment: Speci men Type: BLOOD SPECIMEN Ordering Facility: [facility] Address: [address] [place] [address] Performed By: #### 5 7021-8 #### [facility] CLIA [id number] [address] [place] [address] LAB CLIA [id number] [address] [place] [address] [place] Nucleated RBC (Bld) [#/Vol] 0.24 10*3/uL High <0.01 [facility] Comment on above: Order Comment: Speci men Type: BLOOD SPECIMEN Ordering Facility: [facility] Address: [address] [place] [address] Performed By: #### 5 7021-8 #### [facility] CLIA [id number] [address] [place] [address] LAB CLIA [id number] [address] [place] [address] [place] Nucleated RBC/100 WBC (Bld) [Ratio] 1.0 /100 WBC Normal [facility] Comment on above: Order Comment: Speci men Type: BLOOD SPECIMEN Ordering Facility: [facility] Address: [address] [place] [address] Performed By: #### 5 7021-8 #### [facility] CLIA [id number] [address] [place] [address] LAB CLIA [id number] [address] [place] [address] [place] Ovalocytes LM Ql (Bld) Few Normal [facility] Comment on above: Order Comment: Speci men Type: BLOOD SPECIMEN Ordering Facility: [facility] Address: [address] [place] [address] Performed By: #### 5 7021-8 #### [facility] CLIA [id number] [address] [place] [address] LAB CLIA [id number] [address] [place] [address] [place] Platelet mean volume (Bld) [Entitic vol] 9.7 fL Normal 9.0-12.7 [facility] Comment on above: Order Comment: Speci men Type: BLOOD SPECIMEN Ordering Facility: [facility] Address: [address] [place] [address] Performed By: #### 5 7021-8 #### [facility] CLIA [id number] [address] [place] [address] LAB CLIA [id number] [address] [place] [address] [place] Platelets (Bld) [#/Vol] 227 10*3/uL Normal 150-400 [facility] Comment on above: Order Comment: Speci men Type: BLOOD SPECIMEN Ordering Facility: [facility] Address: [address] [place] [address] Result Comment: Resu lts checked and verified.No clot detected. Performed By: #### 5 7021-8 #### [facility] CLIA [id number] [address] [place] [address] LAB CLIA [id number] [address] [place] [address] [place] Platelets Estimate (Bld) [#/Vol] Adequate Normal [facility] Comment on above: Order Comment: Speci men Type: BLOOD SPECIMEN Ordering Facility: [facility] Address: [address] [place] [address] Performed By: #### 5 7021-8 #### [facility] CLIA [id number] [address] [place] [address] LAB CLIA [id number] [address] [place] [address] [place] RBC (Bld) [#/Vol] 4.49 10*6/uL Normal 3.90-5.20 [facility] Comment on above: Order Comment: Speci men Type: BLOOD SPECIMEN Ordering Facility: [facility] Address: [address] [place] [address] Performed By: #### 5 7021-8 #### [facility] CLIA [id number] [address] [place] [address] LAB CLIA [id number] [address] [place] [address] [place] RED CELL MORPH Reviewed: see result s of individual morphologies Normal [facility] Comment on above: Order Comment: Speci men Type: BLOOD SPECIMEN Ordering Facility: [facility] Address: [address] [place] [address] Performed By: #### 5 7021-8 #### [facility] CLIA [id number] [address] [place], [place] [id number] [facility] CLIA [id number] [address] [place] [address] [place] WBC (Bld) [#/Vol] 24.44 10*3/uL High 3.70-11.00 [facility] Comment on above: Order Comment: Speci men Type: BLOOD SPECIMEN Ordering Facility: [facility] Address: [address] [place] [address] Result Comment: Resu lts checked and verified.No clot detected. Performed By: #### 5 7021-8 #### [facility] CLIA [id number] [address] [place], [place] [id number] [facility] CLIA [id number] [address] [place] [address] [place] CNOVSPon 11-07-2023 CNOVSP Visit (SP) Office ([place]) NADEEN OQUENDO ([id number]) 1950 F Date Time Provider Department 11/07/23 10:30 AM FERNANDO HANNA During your visit today, we recorded the following information about you: Temperature Pulse Respiration Blood pressure 97.1 degrees 64/minute 16/minute 127/75 Weight Height 61.8 kg 1.753 m Fernando Hanna MD 11/07/2023 6:52 PM Signed NAME: Nadeen Oquendo NO.: [id number] DATE OF SERVICE: November 07, 2023 (Jaime) [...] and labs are stable. 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 [...] in the next week. 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 [...] no visi (more content not included)... Normal [facility] Comprehensive metabolic 2000 panelon 11-07-2023 Albumin [Mass/Vol] 4.7 g/dL Normal 3.9-4.9 [facility] Comment on above: Order Comment: Speci men Type: BLOOD SPECIMEN Ordering Facility: [facility] Address: [address] [place] [address] Performed By: #### 3 084-1, 2531-0, #### [facility] CLIA [id number] [address] [place] [address] ALP [Catalytic activity/Vol] 82 U/L Normal 34-123 [facility] Comment on above: Order Comment: Speci men Type: BLOOD SPECIMEN Ordering Facility: [facility] Address: [address] [place] [address] Performed By: #### 3 084-1, 0, #### [facility] CLIA [id number] [address] [place] [address] ALT [Catalytic activity/Vol] 15 U/L Normal 7-38 [facility] Comment on above: Order Comment: Speci men Type: BLOOD SPECIMEN Ordering Facility: [facility] Address: [facility] [place] [address] Performed By: #### 3 084-1, 2531-0, #### [facility] CLIA [id number] [address] [place] [address] Anion gap [Moles/Vol] 10 mmol/L Normal 8-15 [facility] Comment on above: Order Comment: Speci men Type: BLOOD SPECIMEN Ordering Facility: [facility] Address: [address] [place] [address] Performed By: #### 3 084-1, 2531-0, #### [facility] CLIA [id number] [address] [place] [address] AST [Catalytic activity/Vol] 19 U/L Normal 13-35 [facility] Comment on above: Order Comment: Speci men Type: BLOOD SPECIMEN Ordering Facility: [facility] Address: [address] [place] [address] Performed By: #### 3 084-1, 2531-0, #### [facility] CLIA [id number] [address] [place] [address] Bilirubin [Mass/Vol] 0.4 mg/dL Normal 0.2-1.3 [facility] Comment on above: Order Comment: Speci men Type: BLOOD SPECIMEN Ordering Facility: [facility] Address: [address] [place] [address] Performed By: #### 3 084-1, 0, #### [facility] CLIA [id number] [address] [place] [address]26 Calcium [Mass/Vol] 9.5 mg/dL Normal 8.5-10.2 [facility] Comment on above: Order Comment: Speci men Type: BLOOD SPECIMEN Ordering Facility: [facility] Address: [address] [place] [address] Performed By: #### 3 084-1, 2531-0, #### [facility] CLIA [id number] [address] [place] [address]779 Chloride [Moles/Vol] 102 mmol/L Normal 98-107 [facility] Comment on above: Order Comment: Speci men Type: BLOOD SPECIMEN Ordering Facility: [facility] Address: [address] [place], [place] [address] Performed By: #### 3 084-1, 2532-0, #### [facility] CLIA [id number] [address] [place] [address] CO2 [Moles/Vol] 23 mmol/L Normal 22-30 [facility] Comment on above: Order Comment: Speci men Type: BLOOD SPECIMEN Ordering Facility: [facility] Address: [address] [place] [address] Performed By: #### 3 084-1, 2532-0, #### [facility] CLIA [id number] [address] [place] [address] Creatinine [Mass/Vol] 0.80 mg/dL Normal 0.58-0.96 [facility] Comment on above: Order Comment: Speci men Type: BLOOD SPECIMEN Ordering Facility: [facility] Address: [address] [place] [address] Performed By: #### 3 084-1, 2531-0, #### [facility] CLIA [id number] [address] [place] [address] Creatinine and Glomerular filtration rate.predicted panel (S/P/Bld) 77 mL/min/1.73m??? Normal >=60 [facility] Comment on above: Order Comment: Speci men Type: BLOOD SPECIMEN Ordering Facility: [facility] Address: [address] [place], [place] [address] Result Comment: Juliann mated Glomerular Filtration Rate [...] GFR. Performed By: #### 3 084-1, 2532-0, 19420-8 #### [facility] CLIA [id number] [address] [place] [address] Glucose [Mass/Vol] 101 mg/dL High 74-99 [facility] Comment on above: Order Comment: Specbenito men Type: BLOOD SPECIMEN Ordering Facility: [facility] Address: [address] [place] [address] Result Comment: The [place] [employer] (ADA) provides guidance for cutoff [...] Standards of Medical Care in Diabetes 2016, [place] [employer]. Diabetes Care. 2016.39(Suppl 1). Performed By: #### 3 084-1, 253-0, #### [facility] CLIA [id number] [address] [place] [address]63 Potassium [Moles/Vol] 5.2 mmol/L High 3.7-5.1 [facility] Comment on above: Order Comment: Nando mike Type: BLOOD SPECIMEN Ordering Facility: [facility] Address: [address] [place] [address] Performed By: #### 3 084-1, 253-0, #### [facility] CLIA [id number] [address] [place] [address]406 Protein [Mass/Vol] 6.6 g/dL Normal 6.3-8.0 [facility] Comment on above: Order Comment: Nando mike Type: BLOOD SPECIMEN Ordering Facility: [facility] Address: [address] [place] [address] Performed By: #### 3 084-1, 253-0, 86445-3 #### [facility] CLIA [id number] [address] [place] [address]95 Sodium [Moles/Vol] 135 mmol/L Low 136-144 [facility] Comment on above: Order Comment: Speci men Type: BLOOD SPECIMEN Ordering Facility: [facility] Address: [address] [place] [address] Performed By: #### 3 084-1, 2532-0, 99624-5 #### [facility] CLIA [id number] [address] [place] [address]57 Urea nitrogen [Mass/Vol] 13 mg/dL Normal 7-21 [facility] Comment on above: Order Comment: Speci men Type: BLOOD SPECIMEN Ordering Facility: [facility] Address: [address] [place] [address] Performed By: #### 3 084-1, 2532-0, 57454-8 #### [facility] CLIA [id number] [address] [place] [address] Eosinophils/100 WBC Auto (Bl d)on 11-07-2023 Eosinophils/100 WBC (Bld) 0.0 % [facility] Erythrocyte distribution wid th Auto (RBC) [Ratio]on 11-07-2023 Erythrocyte distribution width (RBC) [Ratio] 13.2 % 11.5-15.0 [facility] Hematocrit Auto (Bld) [Volum e fraction]on 11-07-2023 Hematocrit (Bld) [Volume fraction] 41.4 % 36.0-46.0 [facility] Hemoglobin [Mass/volume] in Bloodon 11-07-2023 Hemoglobin (Bld) [Mass/Vol] 14.5 g/dL 11.5-15.5 [facility] LDH SerPl-cCncon 11-07-2023 LDH [Catalytic activity/Vol] 175 U/L Normal 135-214 [facility] Comment on above: Order Comment: Speci men Type: BLOOD SPECIMEN Ordering Facility: [facility] Address: [address] [place] [address] Result Comment: Hemo lysis present. The origin [...] indicated. Performed By: #### 3 084-1, 2532-0, 41907-3 #### [facility] CLIA [id number] [address] [place] [address] Laboratory - Chemistry and C hemistry - challengeon 11-07-2023 Albumin [Mass/Vol] 4.7 g/dL 3.9-4.9 [facility] ALP [Catalytic activity/Vol] 82 U/L 34-123 [facility] ALT [Catalytic activity/Vol] 15 U/L 7-38 [facility] AST [Catalytic activity/Vol] 19 U/L 13-35 [facility] Bilirubin [Mass/Vol] 0.4 mg/dL 0.2-1.3 [facility] Calcium [Mass/Vol] 9.5 mg/dL 8.5-10.2 [facility] Chloride [Moles/Vol] 102 mmol/L 98-107 [facility] CO2 [Moles/Vol] 23 mmol/L 22-30 [facility] Creatinine [Mass/Vol] 0.80 mg/dL 0.58-0.96 [facility] Glucose [Mass/Vol] 101 mg/dL High 74-99 [facility] Comment on above: The [place] [employer] Association (ADA) provides guidance for [...] Standards of Medical Care in Diabetes 2016, [place] [employer]. Diabetes Care. 2016.39(Suppl 1). LDH [Catalytic activity/Vol] 175 U/L 135-214 [facility] Comment on above: Hemolysis present. T he [...] [Moles/Vol] 5.2 mmol/L High 3.7-5.1 [facility] Sodium [Moles/Vol] 135 mmol/L Low 136-144 [facility] Urate [Mass/Vol] 3.5 mg/dL 2.5-6.6 [facility] Urea nitrogen [Mass/Vol] 13 mg/dL 7-21 [facility] Laboratory - Hematology and Cell countson 11-07-2023 Eosinophils (Bld) [#/Vol] 0.00 10*3/uL <0.46 [facility] Leukocytes [#/volume] correc dudley for nucleated erythrocytes in Blood by Automated counon 11-07-2023 WBC corrected for nucl RBC Auto (Bld) [#/Vol] 24.44 k/uL High 3.70-11.00 [facility] Comment on above: Results checked and verified.No clot detected. Lymphocytes Auto (Bld) [#/Vo l]on 11-07-2023 Lymphocytes (Bld) [#/Vol] 19.06 10*3/uL High 1.00-4.00 [facility] Lymphocytes/100 WBC Auto (Bl d)on 11-07-2023 Lymphocytes/100 WBC (Bld) 78.0 % [facility] MCH Auto (RBC) [Entitic mass ]on 11-07-2023 MCH (RBC) [Entitic mass] 32.3 pg 26.0-34.0 [facility] MCHC Auto (RBC) [Mass/Vol]on 11-07-2023 MCHC (RBC) [Mass/Vol] 35.0 g/dL 30.5-36.0 [facility] MCV Auto (RBC) [Entitic vol] on 11-07-2023 MCV (RBC) [Entitic vol] 92.2 fL 80.0-100.0 [facility] [facility] Monocytes Auto (Bld) [#/Vol] on 11-07-2023 Monocytes (Bld) [#/Vol] 0.49 10*3/uL <0.87 [facility] Monocytes/100 WBC Auto (Bld) on 11-07-2023 Monocytes/100 WBC (Bld) 2.0 % [facility] Neutrophils Auto (Bld) [#/Vo l]on 11-07-2023 Neutrophils (Bld) [#/Vol] 4.64 10*3/uL 1.45-7.50 [facility] Neutrophils/100 WBC Auto (Bl d)on 11-07-2023 Neutrophils/100 WBC (Bld) 19.0 % [facility] No Panel Informationon 11-06 Estimated GFR (CKD-EPI) 77 mL/min/1.73m??? >=60 [facility] Comment on above: Estimated Glomerular Filtration Rate [...] see results of individual morphologies [facility] Nucleated RBC Auto (Bld) [#/ Vol]on 11-07-2023 Nucleated RBC (Bld) [#/Vol] 0.24 10*3/uL High <0.01 [facility] Nucleated erythrocytes [Pres ence] in Blood by Automated counton 11-07-2023 Nucleated RBC Auto Ql (Bld) 1.0 /100{WBC} [facility] Ovalocyte detectionon 2023 Ovalocytes LM Ql (Bld) Few [facility] Platelet adequacy [Presence] in Blood by Light microscopyon 11-07-2023 Platelets LM Ql (Bld) Adequate [facility] Platelet mean volume Auto (B ld) [Entitic vol]on 11-07-2023 Platelet mean volume (Bld) [Entitic vol] 9.7 fL 9.0-12.7 [facility] Platelets Auto (Bld) [#/Vol] on 11-07-2023 Platelets (Bld) [#/Vol] 227 10*3/uL 150-400 [facility] Comment on above: Results checked and verified.No clot detected. Protein [Mass/volume] in Ser um or Plasmaon 11-07-2023 Protein [Mass/Vol] 6.6 g/dL 6.3-8.0 [facility] RBC Auto (Bld) [#/Vol]on RBC (Bld) [#/Vol] 4.49 10*6/uL 3.90-5.20 [facility] Serum or plasma anion gap de terminationon 11-07-2023 Anion gap [Moles/Vol] 10 mmol/L 8-15 [facility] Urate SerPl-mCncon Urate [Mass/Vol] 3.5 mg/dL Normal 2.5-6.6 [facility] Comment on above: Order Comment: Speci men Type: BLOOD SPECIMEN Ordering Facility: [facility] Address: [address] [place] [address] Performed By: #### 3 084-1, 2532-0, 40283-1 #### [facility] CLIA [id number] [address] [place] [address] BI MAMMOGRAM SCREENING TOMOS YNTHESIS BILATERALon 09-05-2023 [...] IS VERY IMPORTANT TO YOUR HEALTH. THE [place] [employer] GUIDELINES RECOMMEND THAT WOMEN 40 [...] (Bld) [#/Vol] 0.00 10*3/uL <0.11 [facility] Basophils/100 WBC Auto (Bld) on 05-09-2023 Basophils/100 WBC (Bld) 0.0 % [facility] Blood manual differential co mment interpretation narrativeon 05-09-2023 Manual differential comment Charan (Bld) [Interp] Manual [facility] Eosinophils/100 WBC Auto (Bl d)on 05-09-2023 Eosinophils/100 WBC (Bld) 1.0 % [facility] Erythrocyte distribution wid th Auto (RBC) [Ratio]on 05-09-2023 Erythrocyte distribution width (RBC) [Ratio] 13.1 % 11.5-15.0 [facility] Hematocrit Auto (Bld) [Volum e fraction]on 05-09-2023 Hematocrit (Bld) [Volume fraction] 42.7 % 36.0-46.0 [facility] Hemoglobin [Mass/volume] in Bloodon 05-09-2023 Hemoglobin (Bld) [Mass/Vol] 14.4 g/dL 11.5-15.5 [facility] Laboratory - Chemistry and C hemistry - challengeon 05-09-2023 Albumin [Mass/Vol] 4.8 g/dL 3.9-4.9 [facility] ALP [Catalytic activity/Vol] 80 U/L 34-123 [facility] ALT [Catalytic activity/Vol] 12 U/L 7-38 [facility] AST [Catalytic activity/Vol] 17 U/L 13-35 [facility] Bilirubin [Mass/Vol] 0.4 mg/dL 0.2-1.3 [facility] Calcium [Mass/Vol] 9.8 mg/dL 8.5-10.2 [facility] Chloride [Moles/Vol] 103 mmol/L 97-105 [facility] CO2 [Moles/Vol] 25 mmol/L 22-30 [facility] Creatinine [Mass/Vol] 0.80 mg/dL 0.58-0.96 [facility] Glucose [Mass/Vol] 98 mg/dL 74-99 [facility] Comment on above: The [place] Diab[employer] Association (ADA) provides guidance for [...] Standards of Medical Care in Diabetes 2016, [place] [employer]. Diabetes Care. 2016.39(Suppl 1). LDH [Catalytic activity/Vol] 180 U/L 135-214 [facility] Comment on above: Hemolysis present. T he [...] Potassium [Moles/Vol] 5.0 mmol/L 3.7-5.1 [facility] Protein [Mass/Vol] 6.7 g/dL 6.3-8.0 [facility] Sodium [Moles/Vol] 138 mmol/L 136-144 [facility] Urate [Mass/Vol] 4.7 mg/dL 2.5-6.6 [facility] Urea nitrogen [Mass/Vol] 13 mg/dL 7-21 [facility] Laboratory - Hematology and Cell countson 05-09-2023 Eosinophils (Bld) [#/Vol] 0.25 10*3/uL <0.46 [facility] Leukocytes [#/volume] correc dudley for nucleated erythrocytes in Blood by Automated counon 05-09-2023 WBC corrected for nucl RBC Auto (Bld) [#/Vol] 24.93 k/uL 3.70-11.00 [facility] Lymphocytes Auto (Bld) [#/Vo l]on 05-09-2023 Lymphocytes (Bld) [#/Vol] 19.20 10*3/uL 1.00-4.00 [facility] Lymphocytes/100 WBC Auto (Bl d)on 05-09-2023 Lymphocytes/100 WBC (Bld) 77.0 % [facility] MCH Auto (RBC) [Entitic mass ]on 05-09-2023 MCH (RBC) [Entitic mass] 32.1 pg 26.0-34.0 [facility] MCHC Auto (RBC) [Mass/Vol]on 05-09-2023 MCHC (RBC) [Mass/Vol] 33.7 g/dL 30.5-36.0 [facility] MCV Auto (RBC) [Entitic vol] on 05-09-2023 MCV (RBC) [Entitic vol] 95.3 fL 80.0-100.0 [facility] Monocytes Auto (Bld) [#/Vol] on 05-09-2023 Monocytes (Bld) [#/Vol] 0.50 10*3/uL <0.87 [facility] Monocytes/100 WBC Auto (Bld) on 05-09-2023 Monocytes/100 WBC (Bld) 2.0 % [facility] Neutrophils Auto (Bld) [#/Vo l]on 05-09-2023 Neutrophils (Bld) [#/Vol] 4.99 10*3/uL 1.45-7.50 [facility] Neutrophils/100 WBC Auto (Bl d)on 05-09-2023 Neutrophils/100 WBC (Bld) 20.0 % [facility] No Panel Informationon 05-09 Estimated GFR (CKD-EPI) 77 mL/min/1.73m??? >=60 [facility] Comment on above: Estimated Glomerular Filtration Rate [...] see results of individual morphologies [facility] Nucleated RBC Auto (Bld) [#/ Vol]on 05-09-2023 Nucleated RBC (Bld) [#/Vol] 10*3/uL <0.01 [facility] Nucleated erythrocytes [Pres ence] in Blood by Automated counton 05-09-2023 Nucleated RBC Auto Ql (Bld) 0.0 /100{WBC} [facility] Ovalocyte detectionon 2023 Ovalocytes LM Ql (Bld) Few [facility] Platelet adequacy [Presence] in Blood by Light microscopyon 05-09-2023 Platelets LM Ql (Bld) Adequate [facility] Platelet mean volume Auto (B ld) [Entitic vol]on 05-09-2023 Platelet mean volume (Bld) [Entitic vol] 9.9 fL 9.0-12.7 [facility] Platelets Auto (Bld) [#/Vol] on 05-09-2023 Platelets (Bld) [#/Vol] 228 10*3/uL 150-400 [facility] RBC Auto (Bld) [#/Vol]on RBC (Bld) [#/Vol] 4.48 10*6/uL 3.90-5.20 [facility] Serum or plasma anion gap de terminationon 05-09-2023 Anion gap [Moles/Vol] 10 mmol/L 12-06 [facility] XR foot RT min 3V*on 023 XR foot RT min 3V* [facility] [employer] Other XR foot RT min 3V* [facility] [employer] Other XR foot RT min 3V* [address] [place] [address] [employer] Other XR foot RT min 3V* [place] [address] [facility] [employer] Other XR foot RT min 3V* XRay Report [employer] [facility] [employer] Other XR foot RT min 3V* Signed [employer] Other XR foot RT min 3V* Patient: Nadeen Oquendo MR#: [id number] [employer] Other XR foot RT min 3V* [id number] [employer] Other XR foot RT min 3V* : 1950 Acct:[id number] [employer] Other XR foot RT min 3V* Age/Sex: 72 / F ADM Date: 12/04/22 [employer] Other XR foot RT min 3V* Loc: [facility] Room: Ty pe: REG CLI [employer] Other XR foot RT min 3V* Attending Dr: Daija SEWELL [employer] Other XR foot RT min 3V* Copies to: DONATO Ward [employer] Other XR foot RT min 3V* Ordering Provider: DONATO Ward [employer] Other XR foot RT min 3V* Date of Service: 12/04/22 [employer] Other XR foot RT min 3V* XR/XR foot RT min 3V*: RIGHT FOOT PAIN [employer] Other XR foot RT min 3V* XR foot RT min 3V* 12/04/2022 12:32 PM [employer] Other XR foot RT min 3V* SIGNS AND SYMPTOMS: Pain over the dorsal aspect of the right foot. The metatarsals [employer] Other XR foot RT min 3V* PROTOCOL: Frontal, lateral, and oblique radiographs of the right foot [employer] Other XR foot RT min 3V* COMPARISON: None [employer] Other XR foot RT min 3V* FINDINGS: [employer] Other XR foot RT min 3V* The bones are in anatomic alignment. The joint spaces are preserved. There is no evidence of [employer] Other XR foot RT min 3V* fracture or dislocation. [employer] Other XR foot RT min 3V* XR/XR foot RT min 3V* [employer] Other XR foot RT min 3V* IMPRESSION: [employer] Other XR foot RT min 3V* No fracture or dislocation. [employer] Other XR foot RT min 3V* No significant soft tissue swelling. [employer] Other XR foot RT min 3V* Impression dictated by: Dorita Garcia M.D.12/04/2022 12:47 PM [employer] Other XR foot RT min 3V* Dictation Location: [facility]--13 [employer] Other XR foot RT min 3V* Transcribed By: NICK 12/04/22 1247 [employer] Other XR foot RT min 3V* Dictated By: Dorita Garcia II, MD 12/04/22 1244 [employer] Other XR foot RT min 3V* Signed By: [employer] Other XR foot RT min 3V* 12/04/[address] [place] [address] [employer] Other Comprehensive metabolic 2000 panelon 05-10-2022 Albumin [Mass/Vol] 4.7 g/dL 3.9 - 4.9 g/dL [facility] ALP [Catalytic activity/Vol] 80 U/L 34 - 123 U/L [facility] ALT [Catalytic activity/Vol] 12 U/L 7 - 38 U/L [facility] Anion gap [Moles/Vol] 9 mmol/L 9 - 18 mmol/L [facility] AST [Catalytic activity/Vol] 19 U/L 13 - 35 U/L [facility] Bilirubin [Mass/Vol] 0.3 mg/dL 0.2 - 1.3 mg/dL [facility] Calcium [Mass/Vol] 10.0 mg/dL 8.5 - 10. 2 mg/dL [facility] Chloride [Moles/Vol] 102 mmol/L 97 - 105 mmol/L [facility] CO2 [Moles/Vol] 26 mmol/L 22 - 30 mmol/L [facility] Creatinine [Mass/Vol] 0.87 mg/dL 0.58 - 0.96 mg/dL [facility] Estimated Glomerular Filtration Rate 70 mL/min/1.73m >=60 mL/min/1.73m [facility] Glucose [Mass/Vol] 93 mg/dL 74 - 99 mg/dL [facility] Potassium [Moles/Vol] 4.4 mmol/L 3.7 - 5.1 mmol/L [facility] Protein [Mass/Vol] 6.6 g/dL 6.3 - 8.0 g/dL [facility] Sodium [Moles/Vol] 137 mmol/L 136 - 144 mmol/L [facility] Urea nitrogen [Mass/Vol] 10 mg/dL 7 - 21 mg/dL [facility] LD LACTATE DEHYDROon 023 LDH [Catalytic activity/Vol] 172 U/L 135 - 214 U/L [facility] URIC ACID BLOODon 05-10-2022 Urate [Mass/Vol] 4.3 mg/dL 2.5 - 6.6 mg/dL [facility] CT CSPINE WO CONon 2 CT [...] ALFREDO GODOY Date: 2022-02-07 00:[address] [facility] [address] HEAD WO CONon 02-07-2022 CT HEAD [...] ALFREDO GODOY Date: 2022-02-06 23:57 Normal [facility] XR HIP LT 2 3V W PELVISon [...] ALFREDO GODOY Date: 2022-02-07 00:13 Normal [facility] SCREENING MAMMOGRAM W/RAMIRO, BILATERAL*on 10-16-2021 SCREENING MAMMOGRAM [...] IS VERY IMPORTANT TO YOUR HEALTH. CURRENT [place] [employer] GUIDELINES RECOMMENDS ANNUAL MAMMOGRAPHY BEGINNING AT AGE 38. THIS FACILITY USUALLY USES A REMINDER SYSTEM TO ENSURE ALL POSITIONS RECEIVED REMINDER NOTIFICATIONS AT THE TIME BASED ON THE RECOMMENDATIONS OF THIS EXAM. Report reported and signed by Guerline Puri on 10/17/2021 1316 Normal [facility] Lead Person CT CHEST WO CONon 09-23-2021 CT CHEST [...] by: GUERLINE ANDREWS Date: 2021-09-23 16:16 Normal [facility] CBC AUTO DIFFon 06-19-2021 BASO # 0.1 103/ul Normal 0.0-0.1 [facility] Comment on above: Performed By: #### D ATCBC ####[facility] [address] [place], [place] [address]Dr. Peace Dumont Basophils/100 WBC (Bld) 0.3 % Normal 0.2-2.0 [facility] Comment on above: Performed By: #### D ATCBC ####[facility] [address] [place], [place] [address]Dr. Peace Dumont EO # 0.4 103/ul Normal 0.0-0.7 [facility] Comment on above: Performed By: #### D ATCBC ####[facility] [address] [place], [place] [address]Dr. Peace Dumont Eosinophils/100 WBC (Bld) 1.7 % Normal 0.9-7.0 [facility] Comment on above: Performed By: #### D ATCBC ####[facility] [address] [place], [place] [address]Dr. Peace Dumont Erythrocyte distribution width (RBC) [Ratio] 13.4 % Normal 11.0-15.0 [facility] Comment on above: Performed By: #### D ATCBC ####[facility] [address] [place], [place] [address]Dr. Peace Dumont Hematocrit (Bld) [Volume fraction] 38.4 % Normal 36.0-48.0 [facility] Comment on above: Performed By: #### D ATCBC ####[facility] [address] [place], [place] [address]Dr. Peace Dumont Hemoglobin (Bld) [Mass/Vol] 13.0 g/dL Normal 12.0-16.0 [facility] Comment on above: Performed By: #### D ATCBC ####[facility] [address] [place], [place] [address]Dr. Peace Dumont IG # 0.03 10e3/ul Normal 0.00-0.03 [facility] Comment on above: Performed By: #### D ATCBC ####[facility] [address] [place], [place] [address]Dr. Peace Dumont IG % 0.1 % Normal 0.0-0.5 [facility] Comment on above: Performed By: #### D ATCBC ####[facility] [address] [place] [id number]. Peace Dumont LYMPH # 15.3 103/ul Critically high 1.2-3.8 [facility] Comment on above: Performed By: #### D ATCBC ####[facility] [address] [place] [id number]. Peace Dumont Lymphocytes/100 WBC (Bld) 75.8 % Critically high 20.5-60.0 [facility] Comment on above: Performed By: #### D ATCBC ####[facility] [address] [place], [place] [id number]. Peace Dumont MCH (RBC) [Entitic mass] 31.6 pg Normal 26.7-34.0 [facility] Comment on above: Performed By: #### D ATCBC ####[facility] [address] [place], [place] [address]Dr. Peace Dumont MCHC (RBC) [Mass/Vol] 33.9 g/dL Normal 29.9-35.2 [facility] Comment on above: Performed By: #### D ATCBC ####[facility] [address] [place], [place] [id number]. Peace Dumont MCV (RBC) [Entitic vol] 93.4 fL Normal 81.0-99.0 [facility] Comment on above: Performed By: #### D ATCBC ####[facility] [address] [place] [id number]. Peace Dumont MONO # 1.3 103/ul Critically high 0.3-0.8 [facility] Comment on above: Performed By: #### D ATCBC ####[facility] [address] [place], [place] [address]Dr. Peace Dumont Monocytes/100 WBC (Bld) 6.3 % Normal 1.7-12.0 [facility] Comment on above: Performed By: #### D ATCBC ####[facility] [address] [place], [place] [address]Fw. Shahnazspencer Dumont NEUT # 3.2 103/ul Normal 1.4-6.5 [facility] Comment on above: Performed By: #### D ATCBC ####[facility] [address] [place] [id number]. Peace Dumont Neutrophils/100 WBC (Bld) 15.8 % Critically low 43.0-75.0 [facility] Comment on above: Performed By: #### D ATCBC ####[facility] [address] [place] [id number] Dumont Platelet mean volume (Bld) [Entitic vol] 9.9 fL Normal 9.5-13.5 [facility] Comment on above: Performed By: #### D ATCBC ####[facility] [address] [place] [id number] Dumont PLT 182 103/ul Normal 150-450 [facility] Comment on above: Performed By: #### D ATCBC ####[facility] [address] [place], [place] [address]Dr. Peace Dumont RBC 4.11 106/ul Critically low 4.20-5.40 [facility] Comment on above: Performed By: #### D ATCBC ####[facility] [address] [place] [id number] Dumont WBC 20.3 103/ul Critically high 4.0-11.0 [facility] Comment on above: Performed By: #### D ATCBC ####[facility] [address] [place] [id number] Dumont ERNESTINE- BMP WITH LIPIDon 2021 Anion gap [Moles/Vol] 11.2 mmol/L Normal [facility] Comment on above: Performed By: #### D ATBMP #### [facility] [address] [place], [place] [address] Dr. Peace Dumont Calcium [Mass/Vol] 8.7 mg/dL Normal 8.5-10.1 [facility] Comment on above: Performed By: #### D ATBMP #### [facility] [address] [place] [address] [address] Peace Dumont Chloride [Moles/Vol] 103 mmol/L Normal 98-107 [facility] Comment on above: Performed By: #### D ATBMP #### [facility] [address] [place] [id number] [address] Peace Dumont Cholesterol [Mass/Vol] 208 mg/dL Critically high <=200 [facility] Comment on above: Performed By: #### D ATBMP #### [facility] [address] [place] [address] [address] Peace Dumont Cholesterol in HDL [Mass/Vol] 56 mg/dL Normal 40-60 [facility] Comment on above: Performed By: #### D ATBMP #### [facility] [address] [place] [address] [address] Peace Dumont Cholesterol in LDL [Mass/Vol] 136.8 mg/dL Normal [facility] Comment on above: Performed By: #### D ATBMP #### [facility] [address] [place] [address] [address] Peace Dumont CO2 [Moles/Vol] 27.8 mmol/L Normal 22.0-30.0 [facility] Comment on above: Performed By: #### D ATBMP #### [facility] [address] [place] [address] [address] Peace Dumont Creatinine [Mass/Vol] 0.82 mg/dL Normal 0.52-1.04 [facility] Comment on above: Performed By: #### D ATBMP #### [facility] [address] [place] [address] [address] Peace Dumont EGFR-AF GEORGIAN >60 Normal >=60 [facility] Comment on above: Performed By: #### D ATBMP #### [facility] [address] [place] [id number] [address] Peace Dumont EGFR-NON AF GEORGIAN >60 Normal >=60 [facility] Comment on above: Performed By: #### D ATBMP #### [facility] [address] [place] [address] [address] Peace Dumont Glucose [Mass/Vol] 90 mg/dL Normal 74-106 [facility] Comment on above: Performed By: #### D ATBMP #### [facility] [address] [place] [address] [address] Peace Dumont HDL NORMAL > or = 60 mg/dl - LO W CARDIOVASCULAR RISK <40 mg/dl - HIGH CARDIOVASCULAR RISK Normal [facility] Comment on above: Performed By: #### D ATBMP #### [facility] [address] [place] [address] [address] Peace Dumont LDL CALC NORMAL SEE BELOW Normal [facility] Comment on above: Result Comment: <100 mg/dl OPTIMAL 100 - 129 mg/dl NEAR OR ABOVE OPTIMAL 130 - 159 mg/dl BORDERLINE HIGH 160 - 189 mg/dl HIGH >190 mg/dl VERY HIGH Performed By: #### D ATBMP #### [facility] [address] [place] [address] [address] Peace Dumont Potassium [Moles/Vol] 4.0 mmol/L Normal 3.4-5.0 [facility] Comment on above: Performed By: #### D ATBMP #### [facility] [address] [place] [address] [address] Peace Dumont Sodium [Moles/Vol] 138 mmol/L Normal 137-145 [facility] Comment on above: Performed By: #### D ATBMP #### [facility] [address] [place] [address] [address] Peace Dumont Triglyceride [Mass/Vol] 76 mg/dL Normal <=150 [facility] Comment on above: Performed By: #### D ATBMP #### [facility] [address] [place] [address] [address] Peace Dumont Urea nitrogen [Mass/Vol] 14.0 mg/dL Normal 7.0-18.0 [facility] Comment on above: Performed By: #### D ATBMP #### [facility] [address] [place] [address] [address] Peace Dumont Urea nitrogen/Creatinine [Mass ratio] 17.1 mg/mg Normal [facility] Comment on above: Performed By: #### D ATBMP #### [facility] [address] [place], [place] [address] Dr. Peace Dumont VLDL CALC 15.2 mg/dL Normal [facility] Comment on above: Performed By: #### D ATBMP #### [facility] [address] [place], [place] [address] LUNG CANCER SCREENINGon [...] by: GUERLINE ANDREWS Date: 2021-03-25 11:05 Normal [facility] Covid-19 PCR (CVDTB)on SARS-CoV-2 (COVID-19) RNA ENRIQUE+probe Ql (Unsp spec) Not detected Normal NOT DETECTED [facility] Comment on above: Result Comment: This test is not yet approved or cleared by the [place] FDA. When there are no FDA-approved or cleared tests available, and other criteria are met, FDA can make tests available under an emergency access mechanism called an Emergency Use Authorization (EUA). The EUA for this test is supported by the [employer] of Health and Human Service's (HHS's) declaration [...] consistent with SARS-CoV-2. Performed By: #### C [facility] ####[facility] [address] [place], [place] [address]En. Peace Dumont PROGRESSon 08-24-2017 [facility] NOTES Normal [facility] PROGRESSon 01-25-2017 [facility] NOTES Normal [facility] Vital Signs Date Time Vital Sign Value Performing Clinician Facility 10-29-2024 08:49-0400 Body height 175.26 cm [employer] DO Work Phone: [facility] 10-29-2024 08:49-0400 Body mass index (BMI) [Ratio] 20.2 kg/m2 Schuyler Ball DO Work Phone: [facility] 10-29-2024 08:49-0400 Body weight 62.31 kg Schuyler ChupaMobile DO Work Phone: [facility] 10-29-2024 08:49-0400 Diastolic blood pressure 79 mm[Hg] Schuyler Ball DO Work Phone: [facility] 10-29-2024 08:49-0400 Heart rate 71 /min Schuyler ChupaMobile DO Work Phone: [facility] 10-29-2024 08:49-0400 Respiratory rate 12 /min Schuyler Ball DO Work Phone: [facility] 10-29-2024 08:49-0400 Systolic blood pressure 133 mm[Hg] Schuyler Ball DO Work Phone: [facility] 10-22-2024 14:33-0400 Body height 175.26 cm Schuyler Ball DO Work Phone: [facility] 10-22-2024 14:33-0400 Body mass index (BMI) [Ratio] 20 kg/m2 Schuyler Ball DO Work Phone: [facility] 10-22-2024 14:33-0400 Body weight 61.68 kg Schuyler Ball DO Work Phone: [facility] 10-22-2024 14:33-0400 Diastolic blood pressure 76 mm[Hg] Schuyler Ball DO Work Phone: [facility] 10-22-2024 14:33-0400 Heart rate 58 /min Schuyler Ball DO Work Phone: [facility] 10-22-2024 14:33-0400 Systolic blood pressure 122 mm[Hg] Schuyler Ball DO Work Phone: [facility] 09-03-2024 11:34-0400 Body height 175.26 cm Schuyler Ball DO Work Phone: [facility] 09-03-2024 11:34-0400 Body mass index (BMI) [Ratio] 20.4 kg/m2 Schuyler Ball DO Work Phone: [facility] 09-03-2024 11:34-0400 Body weight 62.76 kg Schuyler Ball DO Work Phone: [facility] 09-03-2024 11:34-0400 Diastolic blood pressure 87 mm[Hg] Schuyler Ball DO Work Phone: [facility] 09-03-2024 11:34-0400 Heart rate 71 /min Schuyler Ball DO Work Phone: [facility] 09-03-2024 11:34-0400 Respiratory rate 12 /min Schuyler Ball DO Work Phone: [facility] 09-03-2024 11:34-0400 Systolic blood pressure 121 mm[Hg] Schuyler Ball DO Work Phone: [facility] 07-30-2024 09:130400 Body height 175.26 cm [facility] 07-30-2024 09:13-0400 Body mass index (BMI) [Ratio] 20.2 kg/m2 [facility] 07-30-2024 09:13-0400 Body weight 62.14 kg [facility] 07-30-2024 09:13-0400 Diastolic blood pressure 80 mm[Hg] [facility] 07-30-2024 09:13-0400 Heart rate 64 /min [facility] 07-30-2024 09:13-0400 Respiratory rate 12 /min [facility] 07-30-2024 09:13-0400 SaO2% (BldA) [Mass fraction] 98 % [facility] 07-30-2024 09:13-0400 Systolic blood pressure 127 mm[Hg] [facility] 07-25-2024 10:41-0400 Body mass index (BMI) [Ratio] 20.98 kg/m2 Jojo Visci DO Work Phone: [facility] 07-25-2024 10:41-0400 Body weight 62.6 kg Jojo Visci DO Work Phone: [facility] 07-25-2024 10:41-0400 Diastolic blood pressure 76 mm[Hg] Jojo Visci DO Work Phone: [facility] 07-25-2024 10:41-0400 Systolic blood pressure 122 mm[Hg] Jojo Visci DO Work Phone: [facility] 05-14-2024 10:33-0500 Body height 175.3 cm Fernando Hanna MD Work Phone: [facility] 05-14-2024 10:33-0500 Body mass index (BMI) [Ratio] 20.4 kg/m2 Fernando Hanna MD Work Phone: [facility] 05-14-2024 10:33-0500 Body temperature 97.3 [degF] Fernando Hanna MD Work Phone: [facility] 05-14-2024 10:33-0500 Body weight 62.7 kg Fernando Hanna MD Work Phone: [facility] 05-14-2024 10:33-0500 Diastolic blood pressure 74 mm[Hg] Fernando Hanna MD Work Phone: [facility] 05-14-2024 10:33-0500 Heart rate 60 /min Fernando Hanna MD Work Phone: [facility] 05-14-2024 10:33-0500 Respiratory rate 16 /min Fernando Hanna MD Work Phone: [facility] 05-14-2024 10:33-0500 SaO2% (BldA) [Mass fraction] 100 % Fernando Hanna MD Work Phone: [facility] 05-14-2024 10:33-0500 Systolic blood pressure 140 mm[Hg] Fernando Hanna MD Work Phone: [facility] 05-02-2024 09:30-0500 Body height 175.26 cm [facility] 05-02-2024 09:30-0500 Body mass index (BMI) [Ratio] 20.1 kg/m2 [facility] 05-02-2024 09:30-0500 Body weight 61.91 kg [facility] 05-02-2024 09:30-0500 Diastolic blood pressure 80 mm[Hg] [facility] 05-02-2024 09:30-0500 Heart rate 80 /min [facility] 05-02-2024 09:30-0500 Respiratory rate 12 /min [facility] 05-02-2024 09:30-0500 Systolic blood pressure 143 mm[Hg] [facility] 11-25-2023 10:46-0400 Body height 175.26 cm [facility] 11-25-2023 10:46-0400 Body mass index (BMI) [Ratio] 19.9 kg/m2 [facility] 11-25-2023 10:46-0400 Body weight 61.29 kg [facility] 11-25-2023 10:46-0400 Diastolic blood pressure 80 mm[Hg] [facility] 11-25-2023 10:46-0400 Heart rate 62 /min [facility] 11-25-2023 10:46-0400 Respiratory rate 12 /min [facility] 11-25-2023 10:46-0400 Systolic blood pressure 129 mm[Hg] [facility] 11-07-2023 10:23-0400 Body height 175.3 cm Fernando Hanna MD Work Phone: [facility] 11-07-2023 10:23-0400 Body mass index (BMI) [Ratio] 20.11 kg/m2 Fernando Hanna MD Work Phone: [facility] 11-07-2023 10:23-0400 Body temperature 97.11 [degF] Fernando Hanna MD Work Phone: [facility] 11-07-2023 10:23-0400 Body weight 61.8 kg Fernando Hanna MD Work Phone: [facility] 11-07-2023 10:23-0400 Diastolic blood pressure 75 mm[Hg] Fernando Hanna MD Work Phone: [facility] 11-07-2023 10:23-0400 Heart rate 64 /min Fernando Hanna MD Work Phone: [facility] 11-07-2023 10:23-0400 Respiratory rate 16 /min Fernando Hanna MD Work Phone: [facility] 11-07-2023 10:23-0400 SaO2% (BldA) [Mass fraction] 98 % Fernando Hanna MD Work Phone: [facility] 11-07-2023 10:23-0400 Systolic blood pressure 127 mm[Hg] Fernando Hanna MD Work Phone: [facility] 10-19-2023 09:42-0400 Body height 175.26 cm [facility] 10-19-2023 09:42-0400 Body mass index (BMI) [Ratio] 20.3 kg/m2 [facility] 10-19-2023 09:42-0400 Body weight 62.59 kg [facility] 09-05-2023 09:48-0400 Body height 175.26 cm [facility] 09-05-2023 09:48-0400 Body mass index (BMI) [Ratio] 20.4 kg/m2 [facility] 09-05-2023 09:48-0400 Body weight 62.82 kg [facility] 09-05-2023 09:48-0400 Diastolic blood pressure 86 mm[Hg] [facility] 09-05-2023 09:48-0400 Heart rate 60 /min [facility] 09-05-2023 09:48-0400 Respiratory rate 12 /min [facility] 09-05-2023 09:48-0400 Systolic blood pressure 139 mm[Hg] [facility] 06-20-2023 13:53-0400 Body height 175.26 cm [facility] 06-20-2023 13:53-0400 Body mass index (BMI) [Ratio] 20.2 kg/m2 [facility] 06-20-2023 13:53-0400 Body weight 62.14 kg [facility] 06-20-2023 13:53-0400 Diastolic blood pressure 74 mm[Hg] [facility] 06-20-2023 13:53-0400 Heart rate 60 /min [facility] 06-20-2023 13:53-0400 Respiratory rate 12 /min [facility] 06-20-2023 13:53-0400 Systolic blood pressure 131 mm[Hg] [facility] 05-09-2023 09:54-0500 Body height 175.3 cm Fernando Hanna MD Work Phone: [facility] 05-09-2023 09:54-0500 Body temperature 98.01 [degF] Fernando Hanna MD Work Phone: [facility] 05-09-2023 09:54-0500 Body weight 61.6 kg Fernando Hanna MD Work Phone: [facility] 05-09-2023 09:54-0500 Diastolic blood pressure 73 mm[Hg] Fernando Hanna MD Work Phone: [facility] 05-09-2023 09:54-0500 Heart rate 65 /min Fernando Hanna MD Work Phone: [facility] 05-09-2023 09:54-0500 Respiratory rate 16 /min Fernando Hanna MD Work Phone: [facility] 05-09-2023 09:54-0500 SaO2% (BldA) [Mass fraction] 99 % Fernando Hanna MD Work Phone: [facility] 05-09-2023 09:54-0500 Systolic blood pressure 140 mm[Hg] Fernando Hanna MD Work Phone: [facility] 04-20-2023 09:45-0500 Body height 175.26 cm Schuyler Barlow Other [facility] 04-20-2023 09:45-0500 Body mass index (BMI) [Ratio] 20.02 kg/m2 Schuyler Ball Other [facility] [employer] Other 04-20-2023 09:45-0500 Body weight 61.51 kg Schuyler Ball Other [facility] [employer] Other 04-20-2023 09:45-0500 Body weight 61.5 kg [facility] 04-20-2023 09:45-0500 Diastolic blood pressure 77 mm[Hg] Schuyler Ball Other [facility] 04-20-2023 09:45-0500 Respiratory rate 12 /min Schuyler Ball Other [employer] Other 04-20-2023 09:45-0500 Systolic blood pressure 133 mm[Hg] Schuyler Ball Other [facility] 02-25-2023 10:30-0500 Body height 175.26 cm Schuyler Ball Other [employer] Other 02-25-2023 10:30-0500 Body mass index (BMI) [Ratio] 19.93 kg/m2 Schuyler Ball Other [employer] Other 02-25-2023 10:30-0500 Body weight 61.24 kg Schuyler Ball Other [employer] Other 02-25-2023 10:30-0500 Diastolic blood pressure 84 mm[Hg] Schuyler Ball Other [employer] Other 02-25-2023 10:30-0500 Respiratory rate 16 /min Schuyler Ball Other [employer] Other 02-25-2023 10:30-0500 SaO2% (BldA) [Mass fraction] 97 % Schuyler Ball Other [employer] Other 02-25-2023 10:30-0500 Systolic blood pressure 148 mm[Hg] Schuyler Ball Other [employer] Other 02-18-2023 08:45-0500 Body height 175.26 cm Schuyler Ball Other [employer] Other 02-18-2023 08:45-0500 Body mass index (BMI) [Ratio] 20.35 kg/m2 Schuyler Ball Other [employer] Other 02-18-2023 08:45-0500 Body weight 62.51 kg Schuyler Ball Other [employer] Other 02-18-2023 08:45-0500 Diastolic blood pressure 84 mm[Hg] Schuyler Ball Other [employer] Other 02-18-2023 08:45-0500 Respiratory rate 12 /min Schuyler Ball Other [employer] Other 02-18-2023 08:45-0500 Systolic blood pressure 151 mm[Hg] Schuyler Ball Other [employer] Other 01-12-2023 15:15-0400 Body height 175.26 cm Schuyler Ball Other [employer] Other 01-12-2023 15:15-0400 Body mass index (BMI) [Ratio] 20.49 kg/m2 Schuyler Ball Other [employer] Other 01-12-2023 15:15-0400 Body weight 62.96 kg Schuyler Ball Other [employer] Other 01-12-2023 15:15-0400 Diastolic blood pressure 81 mm[Hg] Schuyler Ball Other [employer] Other 01-12-2023 15:15-0400 Respiratory rate 12 /min Schuyler Ball Other [employer] Other 01-12-2023 15:15-0400 Systolic blood pressure 131 mm[Hg] Schuyler Ball Other [employer] Other 12-17-2022 13:45-0400 Body height 175.26 cm Schuyler Ball Other [employer] Other 12-17-2022 13:45-0400 Body mass index (BMI) [Ratio] 20.67 kg/m2 Schuyler Ball Other [employer] Other 12-17-2022 13:45-0400 Body weight 63.5 kg Schuyler Ball Other [employer] Other 12-17-2022 13:45-0400 Diastolic blood pressure 79 mm[Hg] Schuyler Ball Other [employer] Other 12-17-2022 13:45-0400 Respiratory rate 12 /min Schuyler Ball Other [employer] Other 12-17-2022 13:45-0400 Systolic blood pressure 149 mm[Hg] Schuyler Ball Other [employer] Other 12-04-2022 11:30-0400 Body height 175.26 cm Daija Payton Other [employer] Other 12-04-2022 11:30-0400 Body mass index (BMI) [Ratio] 20.38 kg/m2 Daija Payton Other [employer] Other 12-04-2022 11:30-0400 Body temperature 98.1 [degF] Daija Payton Other [employer] Other 12-04-2022 11:30-0400 Body weight 62.6 kg Daija Payton Other [employer] Other 12-04-2022 11:30-0400 Diastolic blood pressure 69 mm[Hg] Daija Payton Other [employer] Other 12-04-2022 11:30-0400 Respiratory rate 18 /min Daija Cain Other [employer] Other 12-04-2022 11:30-0400 SaO2% (BldA) [Mass fraction] 99 % Daija Cain Other [employer] Other 12-04-2022 11:30-0400 Systolic blood pressure 141 mm[Hg] Daija Cain Other [employer] Other 08-19-2022 08:55-0400 Diastolic blood pressure 44 mm[Hg] DO Schuyler Ball Work Phone: [facility] 08-19-2022 08:55-0400 Heart rate 59 /min DO Schuyler Ball Work Phone: [facility] 08-19-2022 08:55-0400 Respiratory rate 16 /min DO Schuyler Ball Work Phone: [facility] 08-19-2022 08:55-0400 SaO2% (BldA) [Mass fraction] 100 % DO Schuyler Ball Work Phone: [facility] 08-19-2022 08:55-0400 Systolic blood pressure 89 mm[Hg] DO Schuyler Ball Work Phone: [facility] 08-19-2022 07:03-0400 Body height 175.26 cm DO Schuyler Ball Work Phone: [facility] 08-19-2022 07:03-0400 Body temperature 97.9 [degF] DO Schuyler Ball Work Phone: [facility] 08-19-2022 07:03-0400 Body weight 61.23 kg DO Schuyler Ball Work Phone: [facility] 06-23-2022 10:00-0400 Body height 167.64 cm Schuyler Ball Other [employer] Other 06-23-2022 10:00-0400 Body mass index (BMI) [Ratio] 21.69 kg/m2 Schuyler Ball Other [employer] Other 06-23-2022 10:00-0400 Body weight 60.96 kg Schuyler Ball Other [employer] Other 06-23-2022 10:00-0400 Diastolic blood pressure 70 mm[Hg] Schuyler Ball Other [employer] Other 06-23-2022 10:00-0400 Respiratory rate 16 /min Schuyler Ball Other [employer] Other 06-23-2022 10:00-0400 SaO2% (BldA) [Mass fraction] 99 % Schuyler Ball Other [employer] Other 06-23-2022 10:00-0400 Systolic blood pressure 116 mm[Hg] Schuyler Ball Other [employer] Other 05-26-2022 13:00-0500 Body height 175.26 cm Jake Mireles Other [employer] Other 05-26-2022 13:00-0500 Body mass index (BMI) [Ratio] 19.79 kg/m2 Jake Pauljules Other [employer] Other 05-26-2022 13:00-0500 Body weight 60.78 kg Jake Aline Other [employer] Other 05-26-2022 13:00-0500 Respiratory rate 16 /min Jake Singletonjose Other [employer] Other 05-10-2022 09:04-0500 Body height 175.3 cm Citlaly Cole SCIENCE WRITER.AUTOMOTIVE SERVICE TECHNICIAN Work Phone: [facility] 05-10-2022 09:04-0500 Body temperature 98.71 [degF] Citlaly Cole SCIENCE WRITER.AUTOMOTIVE SERVICE TECHNICIAN Work Phone: [facility] 05-10-2022 09:04-0500 Body weight 61.69 kg Citlaly Cole SCIENCE WRITER.AUTOMOTIVE SERVICE TECHNICIAN Work Phone: [facility] 05-10-2022 09:04-0500 Diastolic blood pressure 78 mm[Hg] Citlaly Cole SCIENCE WRITER.AUTOMOTIVE SERVICE TECHNICIAN Work Phone: [facility] 05-10-2022 09:04-0500 Heart rate 67 /min Citlaly Cole SCIENCE WRITER.AUTOMOTIVE SERVICE TECHNICIAN Work Phone: [facility] 05-10-2022 09:04-0500 Respiratory rate 16 /min Citlaly Cole APRN.AUTOMOTIVE SERVICE TECHNICIAN Work Phone: [facility] 05-10-2022 09:04-0500 SaO2% (BldA) [Mass fraction] 100 % Citlaly Cole SCIENCE WRITER.AUTOMOTIVE SERVICE TECHNICIAN Work Phone: [facility] 05-10-2022 09:04-0500 Systolic blood pressure 132 mm[Hg] Citlaly Cole SCIENCE WRITER.AUTOMOTIVE SERVICE TECHNICIAN Work Phone: [facility] 12-27-2021 11:00-0400 Body height 175.26 cm Amy Hernandez Other [employer] Other 12-27-2021 11:00-0400 Body mass index (BMI) [Ratio] 20.29 kg/m2 Amy Hernandez Other [employer] Other 12-27-2021 11:00-0400 Body temperature 97 [degF] Amy Hernandez Other [employer] Other 12-27-2021 11:00-0400 Body weight 62.32 kg Amy Hernandez Other [employer] Other 12-27-2021 11:00-0400 Diastolic blood pressure 87 mm[Hg] Amy Hernandez Other [employer] Other 12-27-2021 11:00-0400 Respiratory rate 18 /min Amy Hernandez Other [employer] Other 12-27-2021 11:00-0400 SaO2% (BldA) [Mass fraction] 100 % Amy Hernandez Other [employer] Other 12-27-2021 11:00-0400 Systolic blood pressure 135 mm[Hg] Amy Hernandez Other [employer] Other 11-09-2021 09:05-0400 Body height 175.3 cm Fernando Hanna MD Work Phone: [facility] 11-09-2021 09:05-0400 Body temperature 97.39 [degF] Fernando Hanna MD Work Phone: [facility] 11-09-2021 09:05-0400 Body weight 63.32 kg Fernando Hanna MD Work Phone: [facility] 11-09-2021 09:05-0400 Diastolic blood pressure 68 mm[Hg] Fernando Hanna MD Work Phone: [facility] 11-09-2021 09:05-0400 Heart rate 67 /min Fernando Hanna MD Work Phone: [facility] 11-09-2021 09:05-0400 Respiratory rate 16 /min Fernando Hanna MD Work Phone: [facility] 11-09-2021 09:05-0400 SaO2% (BldA) [Mass fraction] 98 % Fernando Hanna MD Work Phone: [facility] 11-09-2021 09:05-0400 Systolic blood pressure 136 mm[Hg] Fernando Hanna MD Work Phone: [facility] 04-13-2021 16:30-0500 Body height 175.26 cm Kedar Paredes Other [employer] Other 04-13-2021 16:30-0500 Body mass index (BMI) [Ratio] 20.38 kg/m2 Kedar Paredes Other [employer] Other 04-13-2021 16:30-0500 Body weight 62.6 kg Kedar Paredes Other [employer] Other 09-26-2019 13:23-0400 BMI (Body Mass Index) 20.53 kg/m2 [employer] 09-26-2019 13:23-0400 Body Temperature 96.91 [degF] [facility]fo [employer] [facility] [employer] 09-26-2019 13:23-0400 Body weight 63.05 kg Rodolfo [employer] [facility] [employer] 09-26-2019 13:23-0400 BP Diastolic 84 mm[Hg] Rodolfo [employer] [facility] [employer] 09-26-2019 13:23-0400 BP Systolic 140 mm[Hg] [facility] 09-26-2019 13:23-0400 Pulse (Heart Rate) 61 /min Rodolfo [employer] [facility] [id number] 02-28-2019 10:40-0500 BP Diastolic 79 mm[Hg] Rodolfo [employer] [facility] [employer] 02-28-2019 10:40-0500 BP Systolic 118 mm[Hg] Rodolfo [employer] [facility] [employer] 02-28-2019 10:40-0500 Height 175.3 cm Rodolfo [employer] [facility] [employer] 02-28-2019 10:40-0500 Pulse (Heart Rate) 67 /min Rodolfo [facility] Encounters Encounter Date Encounter Type Care Provider Facility Start: 10-29-2024 End: 10-29-2024 ambulatory Schuyler Ball DO Work Phone: [facility] Work Phone: Start: 10-29-2024 End: 10-29-2024 Patient encounter procedure Schuyler Barlow DO -[facility] Work Phone: Start: 10-22-2024 End: 10-22-2024 ambulatory Schuyler Ball DO Work Phone: [facility] Work Phone: Start: 10-22-2024 End: 10-22-2024 Patient encounter procedure William Rader APRN -[facility] Work Phone: Start: 09-03-2024 End: 09-03-2024 Patient encounter procedure Schuyler Yen DO -[facility] Work Phone: Start: 08-15-2024 End: 08-15-2024 Patient encounter procedure Schuyler Ball DO Work Phone: [facility] [place] Work Phone: Start: 08-15-2024 End: 08-15-2024 ambulatory Schuyler Ball DO Work Phone: [facility] Work Phone: Start: 07-30-2024 End: 07-30-2024 ambulatory [facility] Work Phone: Start: 07-30-2024 End: 07-30-2024 Patient encounter procedure [facility] Work Phone: Start: 07-25-2024 End: 07-25-2024 Office outpatient visit 15 minutes Jojo Gonsalves DO Work Phone: [facility] Comment on above: Encounter for gyneco logical examination with abnormal finding (Primary Dx); Encounter for screening mammogram for malignant neoplasm of breast; Osteopenia of both hips; Vaginal atrophy; Lipoma of back Start: 07-25-2024 End: 07-25-2024 Patient encounter status Jojo Gonsalves DO Work Phone: [facility] Start: 07-25-2024 End: 07-25-2024 ambulatory JOJO GONSALVES Not Available Start: 07-09-2024 End: 07-09-2024 Bamboo flowsheet Gunner Barrett MD Work Phone: [facility] Start: 07-09-2024 End: 07-09-2024 Bamboo flowsheet Gunner Barrett MD Work Phone: [facility] Start: 07-09-2024 End: 07-09-2024 Office outpatient visit 10 minutes Gunner Barrett MD Work Phone: [facility] Comment on above: Seborrheic keratosis (Primary Dx); Milia; Actinic keratosis Start: 07-09-2024 End: 07-09-2024 ambulatory GUNNER BARRETT Not Available Start: 05-14-2024 End: 05-14-2024 Office outpatient visit 15 minutes Fernando Hanna MD Work Phone: Hematology/Oncology Comment on above: CLL (chronic lymphoc ytic leukemia) (HCC) (Primary Dx) Start: 05-14-2024 End: 05-14-2024 ambulatory FERNANDO HANNA Facility:[facility] Start: 05-14-2024 Non-patient / Non-visit [facility] Work Phone: Start: 05-02-2024 End: 05-02-2024 ambulatory [facility] Work Phone: Start: 05-02-2024 End: 05-02-2024 Patient encounter procedure [facility] Work Phone: Start: 03-09-2024 End: 03-09-2024 Bamboo [employer]scan Saini DO Work Phone: [facility] Start: 03-09-2024 End: 03-09-2024 [employer] Saini DO Work Phone: [facility] Start: 03-09-2024 End: 03-09-2024 ambulatory RIVERA SAINI Not Available Start: 02-09-2024 End: 02-09-2024 Bamboo flowsheet Gunner Barrett MD Work Phone: [facility] Start: 02-09-2024 End: 02-09-2024 Bamboo flowsheet Gunner Barrett MD Work Phone: [facility] Start: 02-09-2024 End: 02-09-2024 Office outpatient visit 15 minutes Gunner Barrett MD Work Phone: [facility] Comment on above: Seborrheic keratosis (Primary Dx); Lentigines Start: 02-09-2024 End: 02-09-2024 ambulatory GUNNER BARRETT Not Available Start: 01-06-2024 End: 01-06-2024 ambulatory [facility] Work Phone: Start: 01-06-2024 End: 01-06-2024 Patient encounter procedure [facility] Work Phone: Start: 11-25-2023 End: 11-25-2023 ambulatory [facility] Work Phone: Start: 11-25-2023 End: 11-25-2023 Patient encounter procedure [facility] Work Phone: Start: 11-08-2023 End: 11-08-2023 Bamboo flowsheet Kylee Marie Didion [employer] Work Phone: [facility] Start: 11-08-2023 End: 11-08-2023 Bamboo flowsheet Kylee Marie Didion [employer] Work Phone: [facility] Start: 11-08-2023 End: 11-08-2023 Social Work Kylee Marie Didion [employer] Work Phone: [facility] Comment on above: LEO (generalized anx iety disorder) (CMS/HCC) Start: 11-07-2023 End: 11-07-2023 Office outpatient visit 15 minutes Fernando Hanna MD Work Phone: Hematology/Oncology Comment on above: CLL (chronic lymphoc ytic leukemia) ([facility]) (Primary Dx) Start: 11-07-2023 End: 11-07-2023 ambulatory FERNANDO HANNA Facility:[facility] Start: 11-07-2023 Non-patient / Non-visit [facility] Work Phone: Start: 11-02-2023 End: 11-02-2023 ambulatory MICHOACANO Rader ALIE-NOSSEK Not Available Start: 10-26-2023 End: 10-26-2023 ambulatory KYLEE DIDION Not Available Start: 10-19-2023 End: 10-19-2023 ambulatory [facility] Work Phone: Start: 10-19-2023 End: 10-19-2023 Patient encounter procedure [facility] Work Phone: Start: 09-26-2023 End: 09-26-2023 ambulatory KYLEE DIDION Not Available Start: 2023 End: 2023 ambulatory MICHOACANO Rader ALIE-NOSSEK Not Available Start: 09-05-2023 End: 09-05-2023 ambulatory JOJO A VISCI Not Available Start: 09-05-2023 End: 09-05-2023 ambulatory [facility] Work Phone: Start: 09-05-2023 End: 09-05-2023 Patient encounter procedure [facility] Work Phone: Start: 08-22-2023 End: 08-22-2023 ambulatory KYLEE DIDION Not Available Start: 08-02-2023 End: 08-02-2023 ambulatory MICHOACANO Dior ALIE-NOSSEK Not Available Start: 06-20-2023 End: 06-20-[address] [facility] Work Phone: Start: 06-20-2023 End: 06-20-2023 Patient encounter procedure [facility] Work Phone: Start: 06-17-2023 Non-patient / Non-visit [facility] Work Phone: Start: 05-09-2023 End: 05-09-2023 Office outpatient visit 15 minutes Fernando Hanna MD Work Phone: Hematology/Oncology Comment on above: Chronic lymphocytic leukemia (HCC) (Primary Dx) Start: 05-09-2023 Non-patient / Non-visit [facility] Work Phone: Start: 05-02-2023 Bamboo flowsheet Kylee Pierson n [employer] Work Phone: [facility] Start: 05-02-2023 Bamboo flowsheet Kylee Pierson n [employer] Work Phone: [facility] Start: 04-29-2023 Chart abstracting Kylee Martinez on [employer] Work Phone: [facility] Start: 04-26-2023 End: 04-26-2023 ambulatory Schuyler Ball Other [employer] Other Start: 04-26-2023 Telephone encounter Schuyler Barlow [facility] Start: 04-24-2023 Chart abstracting Kylee Martinez on [employer] Work Phone: [facility] Start: 04-20-2023 End: 04-20-2023 ambulatory Schuyler Ball Other [employer] Other Start: 04-20-2023 Office outpatient vi sit 15 minutes Schuyler Barlow [facility] Start: 04-20-2023 End: 04-20-2023 Patient encounter procedure [facility]- Start: 03-29-2023 End: 03-29-2023 ambulatory Schuyler Ball Other [employer] Other Start: 03-29-2023 Telephone encounter Schuyler MACDONALD [employer] Start: 03-15-2023 End: 03-15-2023 ambulatory Schuyler Barlow Other [employer] Other Start: 03-15-2023 Telephone encounter Schuyler Barlow [facility] Start: 03-04-2023 End: 03-04-2023 ambulatory Schuyler Barlow Other [employer] Other Start: 03-04-2023 Telephone encounter Schuyler Barlow [facility] Start: 03-03-2023 End: 03-03-2023 ambulatory Daija Cain Other [employer] Other Start: 03-03-2023 Telephone encounter Daija Cain [facility] Start: 02-28-2023 End: 02-28-2023 ambulatory Schuyler Barlow Other [employer] Other Start: 02-28-2023 Telephone encounter Schuyler Barlow [facility] Start: 02-25-2023 End: 02-25-2023 ambulatory Schuyler Barlow Other [employer] Other Start: 02-25-2023 Office outpatient vi sit 15 minutes Schuyler Ball [facility] Start: 02-18-2023 End: 02-18-2023 ambulatory Schuyler Ball Other [employer] Other Start: 02-18-2023 Office outpatient vi sit 15 minutes Schuyler Ball [facility] Start: 01-31-2023 End: 01-31-2023 ambulatory Schuyler Ball Other [employer] Other Start: 01-31-2023 Telephone encounter Schuyler Barlow [facility] Start: 01-21-2023 End: 01-21-2023 ambulatory Schuyler Ball Other [employer] Other Start: 01-21-2023 Telephone encounter Schuyler Barlow [facility] Start: 01-12-2023 End: 01-12-2023 ambulatory Schuyler Barlow Other [employer] Other Start: 01-12-2023 Office outpatient vi sit 15 minutes Schuyler Barlow [facility] Start: 12-21-2022 End: 12-21-2022 ambulatory Schuyler Barlow Other [employer] Other Start: 12-21-2022 Telephone encounter Schuyler Barlow [facility] Start: 12-17-2022 End: 12-17-2022 ambulatory Schuyler Barlow Other [employer] Other Start: 12-17-2022 Office outpatient vi sit 15 minutes Schuyler Barlow [facility] Start: 12-04-2022 Office outpatient vi sit 15 minutes Daija Cain [facility] [place] Start: 12-04-2022 End: 12-04-2022 ambulatory DO Schuyler Ball Work Phone: [employer] Other Start: 12-04-2022 End: 12-04-2022 Patient encounter procedure DO Schuyler Ball Work Phone: [facility] [place] Work Phone: Start: 10-20-2022 End: 10-20-2022 ambulatory Schuyler Barlow Other [employer] Other Start: 10-20-2022 Telephone encounter Schuyler Yen [facility] Start: 08-19-2022 Telephone encounter Jake MACDONALD [facility] Start: 08-19-2022 End: 08-19-2022 Admission to same day surgery center DO Schuyler Ball Work Phone: [facility] Work Phone: Start: 08-19-2022 End: 08-19-2022 ambulatory DO Schuyler Ball Work Phone: [facility] Work Phone: Start: 06-23-2022 End: 06-23-2022 ambulatory Schuyler Barlow Other [employer] Other Start: 06-23-2022 Patient encounter procedure Schuyler Barlow [facility] Start: 05-27-2022 End: 05-27-2022 ambulatory Schuyler Barlow Other [employer] Other Start: 05-27-2022 Telephone encounter Schuyler Barlow [facility] Start: 05-26-2022 End: 05-26-2022 ambulatory Jake Mireles Other [employer] Other Start: 05-26-2022 Patient encounter procedure Jake Mireles [facility] Start: 05-10-2022 End: 05-10-2022 ambulatory Citlaly Cole APRN.AUTOMOTIVE SERVICE TECHNICIAN Work Phone: Hematology/Oncology Comment on above: Chronic lymphocytic leukemia (HCC) (Primary Dx) Start: 05-10-2022 End: 05-10-2022 Patient encounter procedure Citlaly Cole APRN.AUTOMOTIVE SERVICE TECHNICIAN Work Phone: [place] Start: 05-07-2022 Telephone encounter Citlaly galeano SCIENCE WRITER.AUTOMOTIVE SERVICE TECHNICIAN Work Phone: Hematology/Oncology Comment on above: Lab Orders Start: 02-07-2022 End: 02-07-[address] DORITA GRANT Facility:[facility] Start: 12-27-2021 End: 12-27-2021 ambulatory Amy Hernandez Other [employer] Other Start: 12-27-2021 Office outpatient vi sit 15 minutes Amy Hernandez [facility] 06-17-2021 Adult health examination Schuyler Barlow Other [employer] Other Start: 04-30-2021 End: 04-30-2021 ambulatory RIVERA SAINI Facility:[facility] Start: 04-13-2021 End: 04-13-2021 ambulatory Kedar Paredes Other [employer] Other Start: 04-13-2021 Office outpatient vi sit 25 minutes Kedar Paredes [facility] Start: 03-26-2021 End: 03-26-2021 ambulatory RIVERA SAINI Facility:[facility] Start: 03-25-2021 End: 03-26-[address] SCHUYLER BARLOW Facility:[facility] Start: 03-17-2021 End: 03-17-[address] SCHUYLER BARLOW Facility:[facility] Start: 03-06-2021 End: 06-15-[address] KEDAR MARY Facility:[facility] Start: 02-23-2021 End: 02-23-[address] SCHUYLER BARLOW Facility:[facility] Start: 09-26-2019 End: 09-26-2019 Patient encounter procedure Rodolfoyou Ross Work Phone: [facility] Comment on above: 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); [facility] Start: 02-28-2019 End: 02-28-2019 Patient encounter procedure Rodolfo Guerosofy Work Phone: [facility] Comment on above: 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); [facility] Start: 08-24-2017 Ambulatory RODOLFO ROSS [facility] Start: 01-25-2017 Ambulatory RODOLFO Pickett On [facility] Procedures Date Procedure Procedure Detail Performing Clinician Start: 08-15-2024 Pulse volume recorder pneumoplethysmography Schuyler Barlow DO Work Phone: Start: 07-09-2024 CRYOTHERAPY SKIN LESION Gunner Barrett MD Work Phone: Start: 03-09-2024 End: 03-09-2024 Ophth medical xm&eval comprhnsv estab pt 1/> Bilateral posterior capsular opacification Rivera Winsome Saini DO Work Phone: Comment on above: Bilateral posterior capsular opacificati on (Primary Dx); Keratoconjunctivitis sicca of both eyes not specified as Sjogren's; Blepharitis of upper and lower eyelids of both eyes, unspecified type Start: 12-04-2022 X-ray of right foot DO Schuyler Barlow Work Phone: Start: 08-19-2022 Colonoscopy DO Schuyler Barlow Work Phone: Start: 10-16-2021 Mammography Kylee Smith [employer] Work Phone: Start: 10-29-2020 Adult depression screening assessment Fernando Hanna MD Work Phone: Start: 11-18-2015 Pre-surgery evaluation Schuyler Barlow Other Start: 11-18-2015 Preoperative cardiovascular examination Schuyler Barlow Other Depression screening Ericka Barlwo Other Plan of Treatment Date Care Activity Detail Author Start: 11-06-2026 Diabetes Screening Diabetes Screening [facility] Start: 05-09-2026 Diabetes Screening Diabetes Screening [facility] Start: 07-31-2025 End: 07-31-2025 Patient encounter procedure 07/31/2025 10:00 AM EDT Office Visit [facility] [address] [place] [address] Jojo Gonsalves DO [address] [place] [address] [facility] Start: 05-10-2025 DIABETES SCREEN DIABETES SCREEN [facility] Start: 02-07-2025 End: 02-07-2025 Patient encounter procedure 02/07/2025 10:35 AM EST Office Visit [facility] [address] [place] [phone] Gunner Barrett MD [address] [place] [address] [facility] Start: 11-09-2024 DIABETES SCREEN DIABETES SCREEN [facility] Start: 11-05-2024 End: 11-05-2024 Follow-up encounter 11/05/2024 10:20 AM EDT Visit (SP) Office Hematology/Oncology [address] [place] [address] Fernando Hanna MD [address] [place] [address] 6 month follow up Hematology/Oncolog y Comment on above: 6 month follow up Start: 11-05-2024 End: 11-05-2024 Patient encounter procedure 11/05/2024 10:00 AM EDT Office Visit [facility] [address] [place] [address] 6 month follow up [facility] Comment on above: 6 month follow up Start: 09-04-2024 End: 09-24-2025 DBT Breast - bilateral screening Bilateral screening mammogram with tomosynthesis Imaging Routine Encounter for screening mammogram for malignant neoplasm of breast Expected: 09/04/2024, Expires: 09/24/2025 [facility] Work Phone: Comment on above: Expected: 09/04/2024, Expires: Start: 08-15-2024 Pulse volume recorder pneumoplethysmography [facility] Start: 07-25-2024 End: 07-25-2024 Patient encounter procedure 07/25/2024 10:45 AM EDT Office Visit [facility] [address] [place] [address] Jojo Gonsalves DO [address] [place] [address] [facility] Start: 07-09-2024 End: 07-09-2024 Patient encounter procedure 07/09/2024 9:55 AM EDT Office Visit [facility] [address] [place] [address] Gunner Barrett MD [address] [place] [address] Arrived [facility] Comment on above: Arrived Start: 06-07-2024 Covid-19 Vaccine (7 - Pfizer risk season) Covid-19 Vaccine (7 - Pfizer risk ) [facility] Start: 05-14-2024 End: 05-14-2024 Follow-up encounter 05/14/2024 10:45 AM EST Visit (SP) Office Hematology/Oncology [address] [place] [address] Fernando Hanna MD [address] [place] [address] 6 month follow up Hematology/Oncolog y Comment on above: 6 month follow up Start: 05-14-2024 End: 05-14-2024 Patient encounter procedure 05/14/2024 10:30 AM EST Office Visit [facility] [address] [place] [address] 6 month follow up [facility] Comment on above: 6 month follow up Start: 03-21-2024 Advance Directive Discussion Advance Directive Discussion [facility] Start: 03-09-2024 End: 03-09-2024 Patient encounter procedure 03/09/2024 8:45 AM EST Office Visit [facility] [address] [place] [phone] Zahler, Rivera D, DO [address] [place] [address] Arrived [facility] Comment on above: Arrived Start: 02-09-2024 End: 02-09-2024 Patient encounter procedure [facility] Comment on above: Arrived Start: 12-21-2023 End: 12-21-2023 Patient encounter procedure 12/21/2023 10:00 AM EDT Office Visit [facility] [address] [place] [address] Michoacano Carrizales, SCIENCE WRITER-COMPILATION CLERK [address] [place] [address] [facility] Start: 12-05-2023 End: 12-05-2023 Social Work 12/05/2023 11:00 AM EDT Social Work [facility] [address] [place] [phone] Kylee Smith, [employer] [address] [place] [address] [facility] Start: 11-23-2023 End: 11-23-2023 Social Work 11/23/2023 10:00 AM EDT Social Work [facility] [address] [place] [phone] Kylee Smith, [employer] [address] [place] [address] [facility] Start: 11-20-2023 Influenza vaccination Influenza Vaccine (#1) [facility] Start: 11-08-2023 End: 11-08-2023 Social Work 11/08/2023 10:00 AM EDT Social Work [facility] [address] [place] [phone] Kylee Smith, [employer] [address] [place] [address] Arrived [facility] Comment on above: Arrived Start: 09-22-2023 RSV Vaccine (1 - 1-dose 75+ series) RSV Vaccine (1 - 1-dose 75+ series) [facility] Start: 07-11-2023 End: 07-11-2023 Patient encounter procedure [facility] Start: 06-09-2023 End: 06-09-2023 Patient encounter procedure 06/09/2023 10:30 AM EDT Office Visit [facility] [address] [place] [address] Jojo Gonsalves DO [address] [place] [address] [facility] Start: 05-09-2023 End: 05-09-2023 Social Work 05/09/2023 3:00 PM EST Social Work [facility] [address] [place] [address] Kylee Smith, [employer] [address] [place] [address] [facility] Start: 05-02-2023 End: 05-02-2023 Social Work [facility] Comment on above: Arrived Start: 04-25-2023 End: 04-25-2023 Social Work 04/25/2023 12:00 PM EST Social Work [facility] [address] [place] [address] Kylee Smith, [employer] [address] [place] [address] [facility] Start: 03-21-2023 Advance Directive Discussion Advance Directive Discussion [facility] Start: 03-21-2023 Depression Assessment Depression Assessment [facility] Start: 02-16-2023 Covid-19 Vaccine ( season) Covid-19 Vaccine ( season) [facility] Start: 10-16-2022 Screening for malignant neoplasm of breast [facility] Start: 08-19-2022 [facility] Start: 03-21-2022 ADVANCE DIRECTIVE DISCUSSION ADVANCE DIRECTIVE DISCUSSION [facility] Start: 03-21-2022 DEPRESSION ASSESSMENT DEPRESSION ASSESSMENT [facility] Start: 11-19-2021 Influenza vaccination INFLUENZA (#1) [facility] Start: 10-29-2021 Adult depression screening assessment DEPRESSION SCREENING [facility] Start: 04-04-2021 COVID-19 VACCINE (4 - Booster for Pfizer series) COVID-19 VACCINE (4 - Booster for Pfizer series) [facility] Start: 03-21-2021 ADVANCE DIRECTIVE DISCUSSION ADVANCE DIRECTIVE DISCUSSION [facility] Start: 11-20-2019 Influenza vaccination INFLUENZA VACCINE (#1) [facility] Start: 11-19-2018 Influenza vaccination INFLUENZA VACCINE (#1) [facility] Start: 05-06-2018 Pneumococcal Vaccine: 65+ Years (2 - PCV) Pneumococcal Vaccine: 65+ Years (2 - PCV) [facility] Start: 05-06-2018 Pneumococcal Vaccine: 65+ Years (2 of 2 - PCV) Pneumococcal Vaccine: 65+ Years (2 of 2 - PCV) [facility] Start: 05-06-2018 PNEUMOCOCCAL: 65+ (2 - PCV) PNEUMOCOCCAL: 65+ (2 - PCV) [facility] Start: 2013 BONE DENSITY BONE DENSITY [facility] Start: 2013 Pneumococcal vaccination PNEUMOCOCCAL VACCINE SERIES (1 of 2 - PCV13) [facility] Start: 2013 Screening for osteoporosis Bone Density Screening [facility] Start: 03-22-2013 SHINGRIX VACCINE (1 of 2) SHINGRIX VACCINE (1 of 2) [facility] Start: 2008 RSV Vaccine (1 - 1-dose 60+ series) RSV Vaccine (1 - 1-dose 60+ series) [facility] Start: 1998 Colonoscopy [facility] Start: 1998 Zoster vaccine hzv live for subcutaneous use ZOSTER (SHINGLES) VACCINE (1 of 2) [facility] Start: 1993 COLOGUARD (FIT-DNA) COLOGUARD (FIT-DNA) [facility] Start: 1993 Colonoscopy COLONOSCOPY [facility] Start: 1993 COLORECTAL CANCER SCREENING COLORECTAL CANCER SCREENING [facility] Start: [address] COLONOGRAPHY [facility] Start: 1993 FECAL OCCULT BLOOD FECAL OCCULT BLOOD [facility] Start: 1993 Lipid panel Lipid Screening [facility] Start: 1993 LIPID SCREEN LIPID SCREEN [facility] Start: 1993 Screening for malignant neoplasm of colon [facility] Start: 1993 SIGMOIDOSCOPY SIGMOIDOSCOPY [facility] Start: 1988 Fasting lipid profile LIPID SCREENING [facility] Start: 1988 Mammography MAMMOGRAM [facility] Start: 1988 Screening mammography MAMMOGRAM SCREENING DISCUSSION [facility] Start: 1969 Screening for malignant neoplasm of cervix [facility] Start: 09-22-1967 Third diphtheria, tetanus and acellular pertussis (DTaP) vaccination TDAP (ADULT) [facility] Start: 09-22-1967 Urine microalbumin profile [facility] Start: 1966 Anxiety Screening Anxiety Screening [facility] Start: 1966 Depression Screening Depression Screening [facility] Start: 1966 HEPATITIS C SCREENING HEPATITIS C SCREENING [facility] Start: 1966 Hepatitis C screening Hepatitis C Screening [facility] Start: 1966 Tetanus vaccination TETANUS [facility] Start: 1948 Hepatitis C antibody, confirmatory test HEPATITIS C VIRUS SCREENING [facility] Start: 1948 Screening for malignant neoplasm of colon [facility] Start: 1948 Screening for osteoporosis DEXA SCAN DISCUSSION [facility] End: 05-10-2023 CBC W Auto Differential panel - Blood CBC + DIFF Lab Routine Chronic lymphocytic leukemia (HCC) Every 3 months for 4 Occurrences starting 05/10/2022 until 05/10/2023, 1 completed [facility] Work Phone: Comment on above: Every 3 months for 4 Occurrences startin g 05/10/2022 until 05/10/2023, 1 completed CBC W Auto Different ial panel - Blood CBC + DIFF Lab Routine Chronic lymphocytic leukemia (HCC) 05/10/2022 9:01 AM EST [facility] Work Phone: End: 05-08-2024 CBC W Auto Differential panel - Blood CBC + DIFF Lab Routine Chronic lymphocytic leukemia (HCC) Every 6 months for 3 Occurrences starting 05/09/2023 until 05/08/2024 [facility] Work Phone: Comment on above: Every 6 months for 3 Occurrences startin g 05/09/2023 until 05/08/2024 End: 11-06-2024 CBC W Auto Differential panel - Blood COMPLETE BLOOD COUNT AND DIFFERENTIAL Lab Routine CLL (chronic lymphocytic leukemia) (HCC) Every 6 months for 3 Occurrences starting 11/07/2023 until 11/06/2024 [facility] Comment on above: Every 6 months for 3 Occurrences startin g 11/07/2023 until 11/06/2024 End: 05-14-2025 CBC W Auto Differential panel - Blood COMPLETE BLOOD COUNT AND DIFFERENTIAL Lab Routine CLL (chronic lymphocytic leukemia) (HCC) Every 6 months for 3 Occurrences starting 05/14/2024 until 05/14/2025 [facility] Comment on above: Every 6 months for 3 Occurrences startin g 05/14/2024 until 05/14/2025 End: 05-10-2023 Comprehensive metabolic 2000 panel - Serum or Plasma COMP METABOLIC PANEL Lab Routine Chronic lymphocytic leukemia (HCC) Every 3 months for 4 Occurrences starting 05/10/2022 until 05/10/2023, 1 completed [facility] Work Phone: Comment on above: Every 3 months for 4 Occurrences startin g 05/10/2022 until 05/10/2023, 1 completed End: 05-08-2024 Comprehensive metabolic 2000 panel - Serum or Plasma COMP METABOLIC PANEL Lab Routine Chronic lymphocytic leukemia (HCC) Every 6 months for 3 Occurrences starting 05/09/2023 until 05/08/2024 [facility] Work Phone: Comment on above: Every 6 months for 3 Occurrences startin g 05/09/2023 until 05/08/2024 End: 11-06-2024 Comprehensive metabolic 2000 panel - Serum or Plasma COMPREHENSIVE METABOLIC PANEL Lab Routine CLL (chronic lymphocytic leukemia) (HCC) Every 6 months for 3 Occurrences starting 11/07/2023 until 11/06/2024 [facility] Comment on above: Every 6 months for 3 Occurrences startin g 11/07/2023 until 11/06/2024 End: 05-14-2025 Comprehensive metabolic 2000 panel - Serum or Plasma COMPREHENSIVE METABOLIC PANEL Lab Routine CLL (chronic lymphocytic leukemia) (HCC) Every 6 months for 3 Occurrences starting 05/14/2024 until 05/14/2025 [facility] Comment on above: Every 6 months for 3 Occurrences startin g 05/14/2024 until 05/14/2025 End: 05-10-2023 Lactate dehydrogenase [Enzymatic activity/volume] in Serum or Plasma LD LACTATE DEHYDRO Lab Routine Chronic lymphocytic leukemia (HCC) Every 3 months for 4 Occurrences starting 05/10/2022 until 05/10/2023, 1 completed [facility] Work Phone: Comment on above: Every 3 months for 4 Occurrences startin g 05/10/2022 until 05/10/2023, 1 completed End: 05-08-2024 Lactate dehydrogenase [Enzymatic activity/volume] in Serum or Plasma LD LACTATE DEHYDRO Lab Routine Chronic lymphocytic leukemia (HCC) Every 6 months for 3 Occurrences starting 05/09/2023 until 05/08/2024 [facility] Work Phone: Comment on above: Every 6 months for 3 Occurrences startin g 05/09/2023 until 05/08/2024 End: 11-06-2024 Lactate dehydrogenase [Enzymatic activity/volume] in Serum or Plasma LACTATE DEHYDROGENASE Lab Routine CLL (chronic lymphocytic leukemia) (HCC) Every 6 months for 3 Occurrences starting 11/07/2023 until 11/06/2024 [facility] Comment on above: Every 6 months for 3 Occurrences startin g 11/07/2023 until 11/06/2024 End: 05-14-2025 Lactate dehydrogenase [Enzymatic activity/volume] in Serum or Plasma LACTATE DEHYDROGENASE Lab Routine CLL (chronic lymphocytic leukemia) (HCC) Every 6 months for 3 Occurrences starting 05/14/2024 until 05/14/2025 [facility] Work Phone: Comment on above: Every 6 months for 3 Occurrences startin g 05/14/2024 until 05/14/2025 Patient Education [facility] Work Phone: End: 05-10-2023 Urate [Mass/volume] in Serum or Plasma URIC ACID BLOOD Lab Routine Chronic lymphocytic leukemia (HCC) Every 3 months for 4 Occurrences starting 05/10/2022 until 05/10/2023, 1 completed [facility] Work Phone: Comment on above: Every 3 months for 4 Occurrences startin g 05/10/2022 until 05/10/2023, 1 completed End: 11-06-2024 Urate [Mass/volume] in Serum or Plasma URIC ACID Lab Routine CLL (chronic lymphocytic leukemia) (HCC) Every 6 months for 3 Occurrences starting 11/07/2023 until 11/06/2024 [facility] Work Phone: Comment on above: Every 6 months for 3 Occurrences startin g 11/07/2023 until 11/06/2024 End: 05-14-2025 Urate [Mass/volume] in Serum or Plasma URIC ACID Lab Routine CLL (chronic lymphocytic leukemia) (HCC) Every 6 months for 3 Occurrences starting 05/14/2024 until 05/14/2025 [facility] Comment on above: Every 6 months for 3 Occurrences startin g 05/14/2024 until 05/14/2025 [facility] Immunizations Immunization Date Immunization Notes Care Provider [facility] 01-02-2024 influenza, high dose seasonal, preservative-free Fernando Hanna MD Work Phone: [facility] 01-02-2024 influenza virus vaccine, unspecified formulation Gunner Barrett MD Work Phone: [facility] 01-05-2023 influenza (aIIV4) vaccine, age 65+ yr, quadrivalent, PF (FLUAD QUAD) Fernando Hanna MD Work Phone: [facility] 01-05-2023 influenza virus vaccine, unspecified formulation Fernando Hanna MD Work Phone: [facility] 12-14-2021 influenza, high dose seasonal, preservative-free Schuyler Barlow Other [employer] Other 12-14-2021 influenza (aIIV4) vaccine, age 65+ yr, quadrivalent, PF (FLUAD QUAD) Fernando Hanna MD Work Phone: [facility] 12-14-2021 influenza virus vaccine, split virus (incl. purified surface antigen) Schuyler Barlow Other [employer] Other 12-14-2021 influenza virus vaccine, unspecified formulation [facility] 11-27-2021 COVID-19 Pfizer (bivalent) Schuyler Barolw Other [facility] 01-10-2021 COVID-19 vaccine, ag e 12+ yr (PFIZER-BIONTECH - PURPLE TOP) Fernando Hanna MD Work Phone: [facility] 12-17-2020 influenza virus vaccine, split virus (incl. purified surface antigen) Schuyler Barlow Other [employer] Other 12-17-2020 influenza virus vaccine, unspecified formulation [facility] 12-17-2020 Seasonal trivalent influenza vaccine, adjuvanted, preservative free Fernando Hanna MD Work Phone: [facility] 05-14-2020 COVID-19 Vaccine Pfi zer - Documentation Purposes Only Schuyler Barlow Other [facility] 04-23-2020 COVID-19 vaccine, ag e 12+ yr (PFIZER-BIONTECH - PURPLE TOP) Fernando Hanna MD Work Phone: [facility] 12-06-2019 influenza virus vaccine, split virus (incl. purified surface antigen) Schuyler Barlow Other [employer] Other 12-06-2019 influenza virus vaccine, unspecified formulation [facility] 01-10-2019 influenza, high dose seasonal, preservative-free Fernando Hanna MD Work Phone: [facility] 01-10-2019 influenza virus vaccine, unspecified formulation [facility] 02-01-2018 influenza, seasonal, injectable, preservative free Fernando Hanna MD Work Phone: [facility] 02-01-2018 influenza virus vaccine, unspecified formulation Rodolfo Ross [facility] 01-09-2018 influenza virus vaccine, split virus (incl. purified surface antigen) Schuyler Barlow Other [employer] Other 01-09-2018 influenza virus vaccine, unspecified formulation [facility] 01-09-2018 Seasonal trivalent influenza vaccine, adjuvanted, preservative free Fernando Hanna MD Work Phone: [facility] 05-06-2017 pneumococcal polysaccharide vaccine, 23 valent Fernando Hanna MD Work Phone: [facility] 01-06-2017 influenza virus vaccine, split virus (incl. purified surface antigen) Schuyler Barlow Other [employer] Other 01-06-2017 influenza virus vaccine, unspecified formulation [facility] 01-06-2017 influenza, high dose seasonal, preservative-free Fernando Hanna MD Work Phone: [facility] 12-30-2015 influenza virus vaccine, split virus (incl. purified surface antigen) Schuyler Barlow Other [employer] Other 12-30-2015 influenza virus vaccine, unspecified formulation [facility] 12-30-2015 influenza, high dose seasonal, preservative-free Fernando Hanna MD Work Phone: [facility] 01-02-2015 pneumococcal conjuga te vaccine, 13 valent Schuyler Barlow Other [facility] 01-02-2015 pneumococcal Conjuga te, unspecified formulation; Translations: [Need for prophylactic vaccination against Streptococcus pneumoniae (pneumococcus)] Schuyler Barlow Other [employer] Other 01-25-2013 zoster vaccine, live Fernando russell MD Work Phone: [facility] Payers Date Payer Category Payer Medicaid [employer] MEDICARE A DVANTAGE [id number] 2017 Unknown PRE PAID ELECTIV E SELF PAY PRE PAID ELECTIVE SELF PAY [id number] 2017-Present [id number]. [id number] 2017 Unknown PRE PAID ELECTIV E SELF PAY PRE PAID ELECTIVE SELF PAY xxxxxxxxx 2017-Present xxxxxxxxx [id number]. [id number] 2014 Medicare [id number]. [id number] 2014 Medicare (Managed Care) [employer] [facility] [id number] 1959 Medicare [id number] 2.16.840.1.535978.19 1959 Medicare [id number] 1959 Medicare [id number] 1959 Self-pay 1948 Unknown [id number] 2.16.840.1.298177.3.579.2. 593 1948 Unknown [id number] 2.16840.1.458978.3.579.2. 593 1948 Unknown [id number] 2.16840.1.829931.3.579.2. 593 1948 Unknown [id number] 2.16840.1.790197.3.579.2. 593 1948 Unknown [id number] 2.16840.1.564333.3.579.2. 593 1948 Unknown [id number] 2.16840.1.458917.3.579.2. 593 1948 Unknown [id number] 2.840.1.662943.3.579.2. 593 1948 Unknown [id number] 2.840.1.029842.3.579.2. 593 1948 Unknown [id number] 2.840.1.564331.3.579.2. 593 1948 Unknown [id number] 2.840.1.381189.3.579.2. 125 1948 Unknown [id number] 2.840.1.585666.3.579.2. 125 1948 Unknown [id number] 2.840.1.565658.3.579.2. 1259 1948 Unknown [id number] 2.840.1.887454.3.579.2. 125 1948 Unknown [id number] 2.16840.1.648533.3.579.2. 1259 1948 Unknown [id number] 2.840.1.595730.3.579.2. 125 1948 Unknown [id number] 2.16.840.1.513591.3.579.2. 1258 1948 Unknown [id number] 2.16.840.1.944543.3.579.2. 1258 1948 Unknown [id number] 2.16.840.1.696682.3.579.2. 1258 1948 Unknown [id number] 2.16.840.1.103441.3.579.2. 1258 1948 Unknown [id number] 2.16.840.1.722221.3.579.2. 1258 1948 Unknown [id number] 2.16.840.1.543257.3.579.2. 1258 1948 Unknown [id number] 2.16.840.1.524111.3.579.2. 1259 Unknown [id number] 2.16.840.1.029800.3.579.2. 593 Unknown [id number] 2.16.840.1.655943.3.579.2. 531 Social History Date Type Detail Facility Start: 02-28-2019 End: 09-26-2019 Tobacco smoking status NVIS Light tobacco smoker [facility] History of tobacco use Cigarette Smoker [facility] Start: 09-26-2019 End: 11-02-2023 Cigarettes smoked current (pack per day) - Reported [facility] Start: 09-26-2019 End: 08-02-2023 Tobacco use and exposure Never used [facility] Start: 1950 Sex Assigned At Not on file [facility] Start: 02-03-2023 End: 11-02-2023 Sex Assigned At [facility] Start: 11-09-2021 Tobacco smoking stat us NVIS Ex-smoker [facility] History of tobacco use Current smoker [facility] History of tobacco use Passive smoker [facility] Start: 11-09-2021 End: 07-25-2024 Alcohol intake Current drinker of alcohol (finding) [facility] Start: 11-09-2021 Tobacco Comment Quit 10/2016 [facility] Start: 10-30-2021 End: 11-09-2021 Exposure to SARS-CoV-2 (event) Not sure [facility] Start: 08-19-2022 End: 08-02-2023 Tobacco smoking status NHIS Current some day smoker [facility] Start: 1950 Sex Assigned At Female F [facility] Start: 04-24-2023 End: 04-29-2023 Alcohol intake Lifetime non-drinker (finding) [facility] Start: 01-22-2023 Alcohol Comment caffeine: 1-2 cups per day [facility] Adult Depression Screening Assessment 0 [facility] How often to you hav e a drink containing alcohol? 4 or more times a week [facility] How many standard drinks containing alcohol do you have on a typical day? 3 or 4 [facility] How often do you hav e 6 or more drinks on 1 occasion? Less than monthly [facility] Start: 05-23-2023 Alcohol Comment caffeine: 5 diet cok es [facility] Start: 05-02-2024 End: 08-16-2024 Sex Female (finding) [facility] Goals Date Patient Goal Desired Activity /State Functional Status Date Assessment Result Facility 09-06-2014 Are you deaf, or do you have serious difficulty hearing No 09/06/2014 1:05 PM Deisy London No [facility] 09-06-2014 Are you blind, or do you have serious difficulty seeing, even when wearing glasses No 09/06/2014 1:05 PM Deisy London No [facility] 09-06-2014 Do you have serious difficulty walking or climbing stairs No 09/06/2014 1:05 PM Deisy London No [facility] 09-06-2014 Do you have difficul ty dressing or bathing No 09/06/2014 1:05 PM Deisy London No [facility] 09-06-2014 Because of a physica l, mental, or emotional condition, do you have difficulty doing errands alone such as visiting a physician's office or shopping No 09/06/2014 1:05 PM Deisy London No [facility] Mental Status Date Assessment Result Facility 09-06-2014 Because of a physica l, mental, or emotional condition, do you have serious difficulty concentrating, remembering, or making decisions No 09/06/2014 1:05 PM EDT Jd [place] [facility] Clinical Notes 04-13-2021 to 09-03-2024 Note Date & Type Note Facility 09-03-2024 Evaluation note Diagnosis Onset Date Resolution Acute bronchitis due to other specified organisms acute September 03, 2024 11:28am CLL (chronic lymphocytic leukemia) acute September 03, 2024 11:28am Acute exacerbation of chronic obstructive airways disease noneactive September 03, 2024 11:28am Constipation acute October 22, 2024 2:28pm GERD (gastroesophageal reflux disease) acute October 22, 2024 2:28pm [facility] Work Phone: 1(883) 947-306005-30-2025 Radiology Diagnostic study [facility] [place] [address] [place] [address] Ultrasound Report Signed Patient: Nadeen Oquendo MR#: [id number] : 1950 Acct:[id number] Age/Sex: 73 / F ADM Date: 5 Loc: Room: [facility] Attending Dr: Schuyler Barlow DO Ordering Provider: Schuyler Barlow DO Date of Service: 08/15/24 US/US arterial pvr rest LE: M79.604 - Pain in right leg Copies to: Schuyler Barlow DO~ LOWER EXTREMITY SEGMENTAL ARTERIAL DOPSCAN (PVR) [...] dorsalis pedis artery with ankle-brachial index of 1.161.16 . Pressures throughout the left leg are 156 at the high thigh, at the 166 low thigh, 157 at the calf and 146 at the ankle using the posterior tibial artery, and 151 at the ankle using the dorsalis pedis artery with ankle-brachial index of 1.09 1.13 . Wave forms by plethysmography are normal. US/US arterial pvr rest LE IMPRESSION: NO HEMODYNAMICALLY SIGNIFICANT PERIPHERAL VASCULAR OCCLUSIVE DISEASE AT REST IN EITHER LOWER EXTREMITY. Impression dictated by: Humphrey Narvaez M.D. 08/17/2024 11:13 AM Dictation Location: [place] [address] Tech: Elena Graff Transcribed By: NICK 08/17/24 1113 Dictated By: Humphrey Narvaez MD 08/17/24 1113 Signed By: 08/17/24 1113 [facility] Work Phone: 1(526) 578-776705-12-2025 Evaluation note* Diagnosis Onset Date Resolution Status Admit Date Lipoma of back acute July 30, 2024 9:12am Low back pain acute July 30, 2 025 9:12am Major depression acute July 9:12am Nicotine addiction acute July 302024 9:12am Leg pain, bilateral deleted July 192024 9:12am [facility] Work Phone: 1([phone]) 622-783305-12-2025 Evaluation note* Diagnosis Onset Date Resolution Status Admit Date Lipoma of back acute July 30, 2024 9:12am Low back pain acute July 30, 025 9:12am Major depression acute July 9:12am Nicotine addiction acute July 302024 9:12am Leg pain, bilateral deleted July 192024 9:12am Acute bronchitis due to othe r specified organisms acute September 03, 025 11:28am CLL (chronic lymphocytic leukemia) acute September 03, 2024 11:28am Acute exacerbation of chroni c obstructive airways disease noneactive September 03, 2024 11:28am [facility] Work Phone: 1([phone]) 260-252005-07-2025 History of Present illness Narrative* Jojo Gonsalves, DO - 07/25/2024 10:45 AM EDT Images from the original note were not included. Jojo Gonsalves, Obstetrics and Gynecology Nadeen Oquendo 1950 07/25/24 [id number] Yearly Wellness Exam Chief Complaint Patient presents with Gynecologic Exam Pt presents for yearly. Visit Vitals BP 122/76 Wt 138 lb LMP (LMP Unknown) BMI 20.98 kg/m OB Status Postmenopausal Smoking Status Some Days BSA 1.73 m History of Present Illness Current Outpatient Medications Medication Sig Dispense Refill citalopram (CeleXA) 20 MG tablet Take 20 mg by mouth Daily triamcinolone (Kenalog) 0.1 % ointment Apply topically 2 (two) times a day as needed for irritation ALPRAZolam (Xanax) 0.25 MG tablet Take 0.25 mg by mouth as needed at bedtime for anxiety nadolol (Corgard) 20 MG tablet Take 20 mg by mouth in the morning and 20 mg before bedtime. pantoprazole (ProtoNix) 20 MG EC tablet Take 20 mg by mouth in the morning. Take before meals. Do not crush, chew, or split. . No current facility-administered medications for this visit. Allergies Allergen Reactions Bee Venom Unknown Past Medical History: Diagnosis Date Actinic keratosis Anxiety Chronic lymphocytic leukemia ([facility]) 07/2014 Depression ([facility]) GERD (gastroesophageal reflux disease) Osteopenia STD (sexually transmitted disease) Past Surgical History: Procedure Laterality Date CATARACT EXTRACTION Bilateral 2021 Dr. Saini COLONOSCOPY 2014 Dr. Graham-every 5 years COLONOSCOPY 08/19/2022 repeat 5 years NEPHRECTOMY 2011 Lower left kidney removed-benign PELVIC LAPAROSCOPY 1996 Pelvic mass/Broad ligament fibroid OB History Para Term AB Living 2 2 2 2 SAB IAB Ectopic Multiple Live Births 2 # Outcome Date GA Lbr Elijah/2nd Weight Sex Type Anes PTL Lv 2 Term Vag-Spont BERNADINE 1 Term Vag-Spont BERNADINE Obstetric Comments Pap 04/11/17- Neg; Neg HPV Mammogram 09/05/23- neg ([facility]) Dexa 09/05/23- osteopenia hips, normal spine Colonoscopy 08/19/22- repeat 5 years (Aline) ROS General: Denies fevers/chills Eyes: Denies vision changes ENT: Denies neck stiffness, neck mass Endocrine: Denies polydipsia and polyuria Respiratory: Denies shortness of breath Cardiovascular: Denies chest pain and palpitations Gastrointestinal: Denies changes in bowel habits, blood in stool, constipation and diarrhea. Hematology: Denies easy bruising. Women Only: Denies breast masses, skin changes, nipple discharge, abnormal bleeding, pelvic pain and dyspareunia Genitourinary: Denies dysuria, pelvic pain and nocturia Skin: Denies rashes/lesions Neurologic: Denies headaches, dizziness, syncope Psychiatric: Denies hallucinations, suicidal ideas EXAM GENERAL EXAMINATION: Alert, oriented, well developed, well nourished. HEAD: Normocephalic, atraumatic. EYES: THUY, sclera anicteric. EARS: No obvious hearing deficit. NECK/THYROID: Neck supple no cervical lymphadenopathy no thyromegaly. LYMPH NODES: No axillary, supraclavicular or inguinal adenopathy. SKIN: Warm and dry. No rashes HEART: Regular rate and rhythm. No murmur LUNGS: Clear to auscultation bilaterally. CHEST: Axillary nodes grossly normal. BREASTS: No dominant masses palpable bilaterally, no skin changes, nipple discharge, supra-clavicular or axillary adenopathy ABDOMEN: Soft, nontender, nondistended, no hernia or masses palpable. BACK: No obvious scoliosis/kyphosis, L side cephalad to the sacrum is a smooth 1cm moveable nodule under the skin. FEMALE GENITOURINARY: Recreation Officer in room-EFG without sores/lesions, atrophic vaginal mucosa-no discharge, cervix without lesions, uterus AV, NSSC, no adnexal masses, cul-de-sac negative. EXTREMITIES No edema. NEUROLOGIC: Alert and oriented. PSYCH: Cooperative with exam. ICD-10-CM 1. Encounter for gynecological examination with abnormal finding Z01.411 2. Encounter for screening mammogram for malignant neoplasm of breast Z12.31 Bilateral screening mammogram with tomosynthesis 3. Osteopenia of both hips M85.851 M85.852 4. Vaginal atrophy N95.2 5. Lipoma of back D17.1 Advised pt to perform monthly self breast exams. Encouraged calcium and Vitamin D intake. She has asmooth 1cm moveable nodule under the skin -possible lymph node or lipoma. Encouraged her to follow up with Dr. Barlow. Due for mammogram in August. Reviewed Dexa- osteopenia hips, spine normal. Encouraged to continue calcium and will plan to repeat in a few years. Colonoscopy up to date. She will return in 1 year for annual exam. Entered by Deisy Nur LPN acting as scribe for Dr. Jojo Gonsalves. Signature: Deisy Nur LPN The documentation recorded by the scribe accurately reflects the service(s) I personally performed and the decisions I made. Signature: Jojo Gonsalves DO Assessment & Plan documented in this encounterNOMS [id number] History of Present illness Narrative* Gunner Barrett MD - 07/09/2024 9:55 AM EDT Lesions Location: forehead, around and on the nose Duration: years Quality: denies pain, denies itch Associated symptoms: calcium balls ; white bumps under the skin Treatments: none Established patient All pertinent medical history, medications, and allergies were reviewed. General Exam: alert, oriented to person, place, and time, normal affect, well appearing A focused exam completed based on patient reported problems, see below: Skin Exam 1. SEBORRHEIC KERATOSIS Generalized Stuck on verrucous, waite-brown papules and plaques. Patient was counseled regarding these benign growths. Removal is normally not necessary, but they may be removed if they are symptomatic or for cosmetic reasons. 2. MILIA (3) Left Forehead, Mid Forehead, Right Forehead Small white or yellow papules. Reassure, benign. Discussed milia may self resolve or they can be removed for a cosmetic fee (quoted $350 for 11-20 lesions to be removed). Discussed OTC retinol cream as an option. Also instructed patient to call if she requests future removal and will schedule patient at a later date with a longer time slot - patient declined removal today. 3. ACTINIC KERATOSIS Right Nasal Sidewall Erythematous scaly papule Patient was counseled regarding these sun-induced growths that can develop into squamous cell carcinoma if left untreated. Discussed treatment with cryotherapy. It was emphasized that any treated lesions that fail to resolve should be re- evaluated. Cryotherapy performed today; see procedure note Diagnosis: Actinic keratosis Indication: Precancerous Location: see skin exam Consent: Verbal consent was obtained and risks were discussed, including, but not limited to risks of scarring, darker or transmitter supervisor pigmentary changes, recurrence, incomplete removal and infection. Method: Liquid nitrogen was used to treat the lesion(s) with two 5-10 second freeze-thaw cycles. Number of lesions treated: 1 Post-procedure instructions: Instructions were given orally and in writing. The office will be contacted if the lesion fails to resolve despite treatment, or if a side effect develops such as abnormal crusting, scabbing, redness or tenderness Cryotherapy, skin lesion - Right Nasal Sidewall Next Visit: as scheduled documented in this encounterSamaritan [id number] Instructions* Patient Instructions* Fernando Hanna MD - 05/14/2024 11:12 AM EST RTC in 6 months Lab draw same day Continue following with Dr. Barlow [facility] History of Present illness Narrative* Fernando Hanna MD - 05/14/2024 10:40 AM EST Images from the original note were not included. NAME: Nadeen Oquendo [facility] NO.: [id number] DATE OF SERVICE: May 14, 2024 ([facility]) Some elements in this clinic [...] and labs are stable. 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 [...] in the next week. 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 [...] Resp 16 Ht 5' 9.016 (1.75m) Wt 138lb 3.7 oz (62.7kg) SpO2 100% BMI 20.40 [...] FIRST WEEK THEN INCREASE TO TWICE ADAY (Patient not taking: Reported on 05/14/2024) LABORATORY [...] which included preparing to see the patient, mzkf-fh-uend patient care, completing clinical documentation, performing a medically appropriate examination, counseling and educating the patient/family/caregiver, ordering medications, tests, or procedures, independently interpreting results (not separately reported), communicating results to the patient/family/caregiver, and care coordination (not separately reported). Fernando Hanna MD, CPE Hematology and Oncology Services Provided at: [place], [place] CC: Schuyler Barlow MD [address] [facility] [id number] documented in this [facility] NoteHNO ID: [id number] Author: FERNANDO HANNA MD Service: ? Author Type: Physician Type: Progress Notes Filed: 05/14/2024 20:13 Note Text: NAME: Nadeen Oquendo [facility] NO.: [id number] DATE OF SERVICE: May 14, 2024 (Jaime) [...] Barlow HPI: CASE HISTORY: Reverse Chronological Order 2015 - Diagnosed with CLL Updated Visit, May [...] and labs are stable. 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 [...] evaluated sooner. Updated Visit, October 31, 2019: Ndaeen is 69 years old and returns in follow-up for CLL. She remains asymptomatic and labs are stable. She complains that she has had a left sided sore throat for 1 day. She will either call us or her primary care physician if this does not resolve in the next week. 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 [...] Appears to be res (more content not included)...[facility]12-20-2024 History of Present illness Narrative* Rivera Saini, DO - 03/09/2024 8:45 AM EST Images from the original note [...] Date Actinic keratosis Anxiety Chronic lymphocytic leukemia (CMS/HCC) 07/2014 GERD (gastroesophageal reflux disease) Osteopenia STD [...] @ 8:59 AM Additional Tests Keratometry K1 [place] K2 [place] Right 45.00 3 45.25 93 Left 44.50 [...] 2 mm Refraction Manifest Refraction Sphere Cylinder [place] Right +0.00 -0.25 010 Left -1.50 Assessment/Plan [...] laser capsulotomy, they are to notify their patrol officer promptly if they have a significant change [...] lid scrubs were recommended. documented in this encounterSamaritan [id number] History of Present illness Narrative* Gunner Barrett MD - 02/09/2024 2:00 PM EST Skin Check Location: Patient requests a full [...] Examined Right arm Examined Patient wearing nail yoruba, Denies dark streaks under finger nails, Denies darkstreaks on toenails Left arm Examined Lymphatics: Not [...] benign pigmented lesions that occur on sun-exposed andsun-damaged skin. No treatment is necessary. Recommended regular use of broad spectrum sunscreen SPF 30 or higher Next Visit: 1 year documented in this encounterSamaritan [id number] Instructions* Patient Instructions* Faiza Mejia - 11/07/2023 10:59 AM EDT RTC in 6 months Lab draw same day Continue following with Dr. Barlow documented in [facility] History of Present illness Narrative* Fernando Hanna MD - 11/07/2023 10:30 AM EDT Images from the original note were not included. NAME: Nadeen Oquendo CLINIC NO.: [id number] DATE OF SERVICE: November 07, 2023 (Jaime) [...] and labs are stable. 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 [...] in the next week. 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 [...] 16 Ht 5' 9.016 (1.75m) Wt 136lb 3.9 oz (61.8kg) SpO2 98% BMI 20.11 [...] which included preparing to see the patient, legs-du-knje patient care, completing clinical documentation, performing a medically appropriate examination, counseling and educating the patient/family/caregiver, ordering medications, tests, or procedures, independently interpreting results (not separately reported), communicating results to the patient/family/caregiver, and care coordination (not separately reported). Fernando Hanna MD, CPE Hematology and Oncology Services Provided at: [place], [place] Scribe Attestation: This note was scribed [...] under my direction. CC: Schuyler Barlow MD [address] [place] [id number] documented in this encounterT[facility] Hospital08-19-2024 NoteHNO ID: [id number] Author: FERNANDO HANNA MD Service: ? Author Type: Physician Type: Progress Notes Filed: 11/07/2023 18:52 Note Text: NAME: Nadeen Oquendo [facility] NO.: [id number] DATE OF SERVICE: November 07, 2023 (Jaime) [...] and labs are stable. 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 [...] in the next week. 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 [...] Visible areas of s (more content not included)...[facility]07-31-2024 Evaluation note* Author William Hirsch [facility] [facility] Authored October 19, 2023 9:59 am Patient notes ongoing consti pation, patient notes some evening satiety but otherwise GI symptoms are entirely absent [facility] Work Phone: 1(802) 995-934202-19-2024 Instructions* Patient Instructions* Fernando Hanna MD - 05/09/2023 10:25 AM EST Follow up in 6 months. Lab draw same day. documented in this encounterTwin [facility] Hospital02-19-2024 History of Present illness Narrative* Fernando Hanna MD - 05/09/2023 10:00 AM EST Images from the original note were not included. NAME: Nadeen Oquendo [facility] NO.: [id number] DATE OF SERVICE: May 09, 2023 ([facility]) Some elements in this clinic note that [...] and labs are stable. 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 [...] in the next week. 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 [...] which included preparing to see the patient, ucus-rt-wwao patient care, completing clinical documentation, performing a medically appropriate examination, counseling and educating the patient/family/caregiver, ordering medications, tests, or procedures, independently interpreting results (not separately reported), communicating results to the patient/family/caregiver, and care coordination (not separately reported). Fernando Hanna MD, CPE Hematology and Oncology Services Provided at: [place], [place] CC: Schuyler Barlow MD [address] [facility] [address] documented in this encounterTwin City Hospital02-15-2024 Telephone encounter Note * Telephone Encounter - ALEXI Esposito - 05/05/2023 [...] has an initial appointment scheduled to see integrated circuit ic layout designer, Michoacano Carrizales, in June for medication management [...] with her medication. [facility] Work Phone: 1(361) 835-227102-15-2024 Miscellaneous Notes* Telephone Encounter - ALEXI Esposito [...] has an initial appointment scheduled to see integrated circuit ic layout designer, Michoacano Carrizales, in June for medication management [...] to call her back she said p. [phone] and push option 1 let them know that you're trying to reach Dr. Annette Sierra and they'll send you to her, this afternoon they have a light schedule. (lunch 12:30-1pm) ) documented in this encounterSamaritan [id number] Telephone encounter Note* Telephone Encounter - Radha Martinez - 04/26/2023 2:[address] Annette Sierra nurse called and would like to speak to Kylee Rosales regarding a mutual patient Nadeen Oquendo 1950 ( to call her back she said p. [phone] and push option 1 let them know that you're trying to reach Dr. Annette Sierra and they'll send you to her, this afternoon they have a light schedule. (lunch 12:30-1pm) ) [facility] [id number] Evaluation note* Encounter Date Diagnosis Assessment Notes Treatment Notes Treatment Clinical Notes Apr, LEO (generalized anxiety disorder) (ICD-10 - F41.1) [employer] Other 01-31-2024 Evaluation note* Encounter Date Diagnosis [...] w/ BB. Avoid stimulants, decrease caffeine intake [employer] Other 12-15-2023 Evaluation note* Encounter Date Diagnosis Assessment Notes Treatment Notes Treatment Clinical Notes Feb, Cardiomegaly (ICD-10 - I51.7) Feb, Persistent cough (ICD-10 - R05.3) Feb, Dyspnea on exertion (ICD-10 - R06.09) [employer] Other 12-14-2023 Evaluation note* Encounter Date Diagnosis Assessment Notes Treatment Notes Treatment Clinical Notes Feb, Cardiomegaly (ICD-10 - I51.7) Feb, Persistent cough (ICD-10 - R05.3) Feb, Dyspnea on exertion (ICD-10 - R06.09) [employer] Other 12-11-2023 Evaluation note* Encounter Date Diagnosis Assessment Notes Treatment Notes Treatment Clinical Notes Feb, Chronic obstructive pulmonary disease with (acute) exacerbation (ICD-10 - J44.1) [employer] Other 12-08-2023 Evaluation note* Encounter Date Diagnosis [...] infection 6 wks earlier but worsened lastely [employer] Other 12-01-2023 Evaluation note* Encounter Date Diagnosis Assessment Notes Treatment Notes Treatment Clinical Notes Feb, LEO (generalized anxiety disorder) (ICD-10 - F41.1) Healthy diet and exercise. Keep active. 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 Discussed augmenting Celexa for breakthrough mood swings. Refer for counseling. [facility] Other 11-13-2023 Evaluation note* Encounter Date Diagnosis Assessment Notes Treatment Notes Treatment Clinical Notes Jan, Simple chronic bronchitis (ICD-10 - J41.0) [employer] Other 10-25-2023 Evaluation note* Encounter Date Diagnosis Assessment Notes Treatment Notes Treatment Clinical Notes Dec, Bee sting, accidental or unintentional, initial encounter (ICD-10 - T63.441A) Cleanse area w/ soap and water. Ice to RUE qid. Elevate hand above elbow to avoid hand/fingers swelling Dec, Allergic reaction, initial encounter (ICD-10 - T78.40XA) Benadryl at HS. CLaritin q am. Topical crms not beneficial [employer] Other 09-29-2023 Evaluation note* Encounter Date Diagnosis Assessment Notes Treatment Notes Treatment Clinical Notes Nov, Sprain of other ligament of right ankle, initial encounter (ICD-10 - S93.491A) ROM exercises, ice/heat and Tylenol Voltaren Gel qid Use pain as guideline XR but unlikely to be fx [employer] Other 09-16-2023 Evaluation note* Encounter Date Diagnosis [...] no improvement in 2 to 3 days [employer] Other 06-01-2023 [facility]* Encounter Date Diagnosis Assessment Notes [...] cancer (ICD-10 - Z12.2) LDCT in September, [employer] Other 03-08-2023 Evaluation note* Encounter Date Diagnosis Assessment Notes Treatment Notes Treatment Clinical Notes May, Chronic idiopathic constipation (ICD-10 - K59.04) May, Hemorrhoids (ICD-10 - K64.9) [employer] Other 02-20-2023 History of Present illness Narrative* Citlaly Cole APRN.AUTOMOTIVE SERVICE TECHNICIAN - 05/10/2022 9:23 AM EST Images from the original note were not included. NAME: Nadeen Oquendo CLINIC NO.: [id number] DATE OF SERVICE: May 11, 2022 Some [...] and labs are stable. 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 [...] in the next week. 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 [...] No family history on file. Citlaly Cole APRN.RON [place], [place] CC: Schuyler Barlow MD [address] [facility] [address] I spent a total of 20 minutes on the date of the service which included preparing to see the patient, umtt-qa-hgbe patient care, completing clinical documentation, obtaining and/or reviewing separately obtained history, performing a medically appropriate examination, counseling and educating the pat ient/family/caregiver, ordering medications, tests, or procedures, independently interpreting results (not separately reported), and communicating results to the patient/family/caregiver. documented in this encounterTwin City Hospital02-17-2023 Miscellaneous Notes* Telephone Encounter - Kimberly Coker Ma - 05/07/2022 2:50 PM EST Lab orders for appointment on 05/10/22 Kimberly Coker Ma documented in this encounterTwin City Hospital10-09-2022 Evaluation note* Encounter Date Diagnosis Assessment [...] take with food to prevent stomach upset. [facility] [employer] Other 08-22-2022 Instructions* Patient Instructions* Fernando Hanna MD - 11/09/2021 9:37 AM EDT 1. RTC 6 months 2. Lab draw same day. documented in this encounterTwin City Hospital08-22-2022 History of Present illness Narrative* Fernando Hanna MD - 11/09/2021 9:30 AM EDT Images from the original note were not included. NAME: Nadeen Oquendo CLINIC NO.: [id number] DATE OF SERVICE: November 09, 2021 Some [...] and labs are stable. 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 [...] in the next week. 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 [...] which included preparing to see the patient, yfrd-gm-djng patient care, completing clinical documentation, performing a medically appropriate examination, and ordering medications, tests, or procedures. Fernando Hanna MD, [place], [place] CC: Schuyler Barlow MD [address] [place] [address] documented in this encounterTwin City Hospital02-10-2022 NoteHISTORY AND PHYSICAL EXAMINATION HISTORY: The [...] and go forward with her elective procedure. [facility] Signed and Approved by: RIVERA SAINI 04/27/2021 13:25:00[facility]02-10-2022 NoteOPERATIVE NOTE OPERATION DATE: 03-26-21 ANESTHETIC: Topical. [...] was injected into the anterior chamber and Wec cell sponge was used to check the wounds to be water tight. One drop of apraclonidine and 1 drop of prednisolone acetate were placed into the eye and shield was placed over top. The patient was sent to the postoperative area in satisfactory condition to followup the following day for postoperative care. [facility] Signed and Approved by: RIVERA SAINI 04/27/2021 13:24:00[facility]02-10-2022 NoteOP Note 03/26/2021 SURGEON: Rivera Saini D.O. [...] ensuring mobility, phacoemulsification was performed in a svlvabe-zrl-hjnqlc-type fashion. After all nuclear material had been [...] up the following day for postoperative care.The [id number] NotePre-Op History and Physical HISTORY: Patient is [...] decline other than that of cataract. 2. HQVIR-37-Sdu patient was briefed in the office and [...] and go forward with this elective procedure. [facility] Signed and Approved by: RIVERA SAINI 05/27/2021 16:29:00[facility]02-10-2022 NoteOP Note DATE OF SERVICE: 04/30/2021 SURGEON: [...] ensuring mobility, phacoemulsification was performed in a cmbezqe-cox-kmsayv-type fashion. After all nuclear material had been [...] up the following day for postoperative care. [facility] Signed and Approved by: RIVERA SAINI 05/27/2021 16:29:00[facility]02-10-2022 NoteNAME: Landry OquendoABE#: [id number] DATE OF : 1950MEDICAL REC#: [id number] FOLDER SEAMER AUTOMATIC: Carmen SoriaADMIT DATE: HAT BRIM AND CROWN LAMINATING OPERATOR DATE: 05/02/2021 12:42:54 pmDICTATING PHYSICIAN: Rivera [...] decline other than that of cataract. 2. [id number]-75-[id number] patient was briefed in the office and [...] and go forward with this elective procedure.The [id number] Evaluation note* Encounter Date Diagnosis Assessment Notes Treatment Notes Treatment Clinical Notes Mar, Hemorrhoids (ICD-10 - K64.9) START ANUSOL HC CREAM BID Mar, Chronic idiopathic constipation (ICD-10 - K59.04) Mar, History of colon polyps (ICD-10 - Z86.010) REPEAT COLONOSCOPY Mar, Other CONTINUE SENOKO T S AT BEDTIME [employer] Other Evaluation note* Diagnosis Chronic lymphocytic leukemia (HCC)- Primary Chronic lymphoid leukemia, without mention of having achieved remission documented in this encounter [facility]* Diagnosis Chronic lymphocytic leukemia (HCC)- Primary Chronic lymphoid leukemia, without mention of having achieved remission documented in this encounter [facility] HospitalEvaludelaware [facility] for [facility] note* Diagnosis Chronic lymphocytic leukemia (HCC)- Primary Chronic lymphoid leukemia, without mention of having achieved remission documented in this encounter [facility] HospitalEvaluation noteNo InformationNort [employer] Other Evaluation noteNo assessment information available [facility] Work Phone: Evaluation note* Diagnosis Onset Date Resolution Status Ankle sprain acute Cryptic tonsil acute RLS (restless legs syndrome) acute Chronic bronchitis acute LEO (generalized anxiety disorder) acute GERD (gastroesophageal reflux disease) acute Major depression acute Medicare annual wellness visit, subsequent noneactive [facility] Work Phone: Evaluation note* Author William Hirsch [facility] Authored October 19, 2023 9:59 am Patient notes ongoing consti pation, patient notes some evening satiety but otherwise GI symptoms are entirely absent [facility] Work Phone: Evaluation note* Diagnosis CLL (chronic lymphocytic leukemia) (HCC)- Primary Chronic lymphoid leukemia, without mention of having achieved remission documented in this encounter [facility]* Diagnosis Seborrheic keratosis- Primary Lentigines documented in this encounter [facility] HealthcareEvaluation note* Diagnosis LEO (generalized anxiety disorder) (CMS/HCC) Generalized anxiety disorder [facility]* Diagnosis Bilateral posterior capsular opacification- Primary Unspecified after-cataract Keratoconjunctivitis sicca of both eyes not specified as Sjogren's Blepharitis of upper and lower eyelids of both eyes, unspecified type documented in this encounter [facility] HealthcareEvaluation note* Diagnosis CLL (chronic lymphocytic leukemia) (HCC)- Primary Chronic lymphoid leukemia, without mention of having achieved remission documented in this encounter [facility]* Diagnosis Seborrheic keratosis- Primary Milia Sebaceous cyst Actinic keratosis documented in this encounter [facility] HealthcareEvaluation note* Diagnosis Encounter for gynecological examination with abnormal finding- Primary Encounter for screening mammogram for malignant neoplasm of breast Osteopenia of both hips Vaginal atrophy Postmenopausal atrophic vaginitis Lipoma of back documented in this encounter [facility] HealthcareHistory and physical note Author Jake Mireles [facility] August 19, 2022 8:02am Note Date/Time August 19, 2022 8:02a m [facility] [address] [place] [address] Gastroenterology H&P Signed Patient: Nadeen Oquendo MR#: [id number] : 1950 Acct:[id number] Age/Sex: 71 / F Adm Date: 3 Loc: Room: Type: [facility] Attending Dr: Jake Mireles MD Copies [...] <Electronically signed by Jake Mireles MD> 08/19/22 08 [facility] Work Phone: History general Narrative - Reported* Type Description Date Medical History Constipation - functional Medical History Chronic lymphatic leukemia Medical History MVP (mitral valve prolapse) Medical History Gastroesophageal ref lux disease, esophagitis presence not specified Medical History Anxiety Surgical History LEFT KIDNEY (SPOT REMOVED) Surgical History eye surgery [facility] Other Hishrjy general Narrative - Reported* Type Description Date [...] extraction 04/27/21 Hospitalization History see surgical history [facility] Other History general Narrative - Reported* Type [...] years 08/2022 Hospitalization History see surgical history [facility] Other Hospital Discharge instructions Additional Instructions DISCHARGE [...] years. -Follow up with PCP. -Office number [phone].[facility] Work Phone: Reason for referral (narrative)* Reason Referral for prenatal genetic counselor ing Diagnosis 1 LEO (generalized anx iety disorder) (F41.1) Referral Organization [facility] Yen jarquin Referring Provider First Name Schuyler Referring Provider Last Name Yen Referring Provider Specialty Internal Hi javier Referred Organization [facility] Referred Provider Yi Le Referred Address ,[place], [place],[address] Referred Provider Specialty Psychiatry Referral Priority Routine General Notes Patient being referr ed for counseling for LEO and depression. [facility] Other Reason for referral (narrative)No reason for referral information availableGrant Hospital Work Phone: Summary Purpose Family History Relationship Condition Age [...] file Gets together: Not on file Attends advent service: Not on file Active member of [...] file Gets together: Not on file Attends advent service: Not on file Active member of [...] to call with any problems or questions. Jaymie Ibrahim - 02/28/2019 10:15 AM JOE [employer] Review of Systems: Do you [...] on lower extremities May 02, 2024 9:10am Chief Complaint Admit Date lumps under skin around hip July 30 9:12am Chief Complaint Admit Date lumps under skin around hip July 30 9:12am I70.213 August 15, 2024 12:37 pm Reason for Visit Admit Date Lipoma of back July 30, 2024 9:12a m Low back pain July 30, 2024 9:12a m Major depression July 30, 2024 9:12a m Nicotine addiction July 30, 2024 9:12a m Leg pain, bilateral July 30, 2024 9:12a m Chief Complaint Admit Date lumps under skin around hip July 30 9:12am I70.213 August 15, 2024 12:37 pm URI September 03, 2024 11:2 8am 1 Year follow up October 22, 2024 2:2 8pm Reason for Visit Admit Date Lipoma of back July 30, 2024 9:12a m Low back pain July 30, 2024 9:12a m Major depression July 30, 2024 9:12a m Nicotine addiction July 30, 2024 9:12a m Leg pain, bilateral July 30, 2024 9:12a m Acute bronchitis due to other specified organisms September 03, 2024 11:28am CLL (chronic lymphocytic leukemia) September 03, 2024 11:28am Acute exacerbation of chronic obstructiv e airways disease September 03, 2024 11:28am Chief Complaint Admit Date I70.213 August 15, [...] (gastroesophageal reflux disease) A ugust 2024 2:28pm Additional Source Comments INFORMATION SOURCE (unrecogn ized section and content) DATE CREATED AUTHOR 09/06/2017 [facility] DATE CREATED AUTHOR AUTHOR'S ORGANIZ ATION 10/20/2021 [facility] dical Specialist DATE CREATED AUTHOR AUTHOR'S ORGANIZ ATION 02/10/2022 [facility] DATE CREATED AUTHOR AUTHOR'S ORGANIZ ATION 05/17/2024 [facility] DATE CREATED AUTHOR AUTHOR'S ORGANIZ ATION 07/28/2024 [facility] dical Specialists EPIC DATE CREATED AUTHOR AUTHOR'S ORGANSTERLING ATION 08/26/2024 [facility] ys[facility] Reason for Visit (unrecogniz ed section and content) Reason Comments Cosmetic Botox injection. Las t Botox injection was on 01/24/19. Reason Comments Cosmetic Restylane injection. Last Restylane injection was on 01/25/17. Reason Comments Leukemia 6 month follow up Reason Comments Lab Orders Reason Comments Leukemia Reason Comments Skin Check Reason Comments Follow-up Reason Comments Blurred Vision Reason Comments Leukemia Follow up Reason Comments Suspicious Skin Lesion Reason Comments Gynecologic Exam Pt presents for year ly. Source Comments (unrecognize d section and content) In the event this informatio n is protected by the Federal Confidentiality of Alcohol and Drug Abuse Patient Records regulations: The Federal rules restrict any use of the information to criminally investigate or prosecute any alcohol or drug abuse patient.[facility] City HospitalIn the event this information is protected by the Federal Confidentiality of Alcohol and Drug Abuse Patient Records regulations: The Federal rules restrict any use of the information to criminally investigate or prosecute any alcohol or drug abuse patient.[facility] HospitalIn the event this information is protected by the Federal Confidentiality of Alcohol and Drug Abuse Patient Records regulations: The Federal rules restrict any use of the information to criminally investigate or prosecute any alcohol or drug abuse patient.[facility] HospitalIn the event this information is protected by the Federal Confidentiality of Alcohol and Drug Abuse Patient Records regulations: The Federal rules restrict any use of the information to criminally investigate or prosecute any alcohol or drug abuse patient.[facility] HospitalIn the event this information is protected by the Federal Confidentiality of Alcohol and Drug Abuse Patient Records regulations: The Federal rules restrict any use of the information to criminally investigate or prosecute any alcohol or drug abuse patient.[facility] HospitalIn the event this information is protected by the Federal Confidentiality of Alcohol and Drug Abuse Patient Records regulations: The Federal rules restrict any use of the information to criminally investigate or prosecute any alcohol or drug abuse patient.[facility] Care Teams (unrecognized sec tion and content) Team Status: Active Member Role Status Dates Schuyler Barlow , DO Primary Care Provider Active Team Status: Inactive Member Role Status Dates Schuyler Barlow DO Primary Care Provide r, Attending Provider Active Start: July 30, 2024 End: July 30, 2024 Team Status: Inactive Member Role Status Dates Schuyler Barlow DO Primary Care Provide r, Attending Provider Active Start: August 15, 2024 End: August 15, 2024 Team Status: Active Member Role Status Dates Schuyler Barlow DO Primary Care Provider Active Start: May 14, 2024 Fernando Hanna MD Attending Provider Active Start: May 14, 2024 Team Status: Inactive Member Role Status Dates [...] June 20, 2023 End: June 20, 2023 Glass Carrier Relationship Specialty Start Date End Date Schuyler Barlow DO PCP - General Internal Medicine 08/22/14 Glass Carrier Relationship Specialty Start Date End Date Schuyler Barlow DO PCP - General Internal Medicine 08/22/14 Glass Carrier Relationship Specialty Start Date End Date Schuyler Barlow DO PCP - General Internal Medicine 08/22/14 Team Status: Inactive Member Role Status Dates Schuyler Barlow DO Primary Care Provider Active Jake Mireles MD Attending Provider Active Team Status: Inactive Member Role Status Dates Schuyler Barlow DO Primary Care Provider Active DONATO Odonnell Attending Provider Active Glass Carrier Relationship Specialty Start Date End Date Schuyler Barlow DO PCP - General Internal Medicine 08/22/14 Team Status: Inactive Member Role Status Dates Schuyler Barlow DO Attending Provider Active Sta rt: April 20, 2023 End: April 20, 2023 Team Status: Active Member Role Status Dates Schuyler Barlow DO Primary Care Provide r, Attending Provider Active Start: May 09, 2023 Glass Carrier Relationship Specialty Start Date End Date Schuyler Barlow DO PCP - General Internal Medicine 08/22/14 Team Status: Active Member Role Status Dates Schuyler Barlow DO Primary Care Provider Active Start: November 07, 2023 Fernando Hanna MD Attending Provider Active Start: November 07, 2023 Team Status: Inactive Member Role Status Dates Schuyler Barolw DO Primary Care Provide r, Attending Provider Active Start: November 25, 2023 End: November 25, 2023 Team Status: Inactive Member Role Status Dates Schuyler Barlow DO Primary Care Provide r, Attending Provider Active Start: January 06, 2024 End: January 06, 2024 Glass Carrier Relationship Specialty Start Date End Date Schuyler Barlow MD [address] [place] [address] PCP - General Internal Medicine 11/02/23 Glass Carrier Relationship Specialty Start Date End Date Schuyler Barlow MD [address] [place] [address] PCP - General Internal Medicine 11/02/23 Glass Carrier Relationship Specialty Start Date End Date Schuyler Barlow MD [address] [place] [address] PCP - General Internal Medicine 11/02/23 Glass Carrier Relationship Specialty Start Date End Date Schuyler Barlow MD [address] [place] [address] PCP - General Internal Medicine 11/02/23 Glass Carrier Relationship Specialty Start Date End Date Schuyler Barlow MD [address] [place] [address] PCP - General Internal Medicine 11/02/23 Team Status: Inactive Member Role Status Dates Schuyler Barlow DO Primary Care Provide r, Attending Provider Active Start: May 02, 2024 End: May 02, 2024 Glass Carrier Relationship Specialty Start Date End Date Schuyler Barlow DO PCP - General Internal Medicine 08/22/14 Glass Carrier Relationship Specialty Start Date End Date Schuyler Barlow MD PCP - General Internal Medicine 11/02/23 Michoacano Carrizales APRN-COMPILATION CLERK [address] [facility] [address] [place] [address] Nurse Practitioner Psychiatry 04/05/24 Kylee Smith LISW-S [address] [place] [address] Project Manager Interior Design Behavioral Health 05/03/24 Glass Carrier Relationship Specialty Start Date End Date Schuyler Barlow MD PCP - General Internal Medicine 11/02/23 Michoacano Carrizales [facility] [address] [facility] [address] [place] [address] Nurse Practitioner Psychiatry 04/05/24 Kylee Smith LISW-S [address] [place] [address] Project Manager Interior Design Behavioral Health 05/03/24 Glass Carrier Relationship Specialty Start Date End Date Schuyler Barlow DO PCP - General Internal Medicine 11/02/23 Michoacano Carrizales APRN-COMPILATION CLERK [address] [place] [address] Nurse Practitioner Psychiatry 04/05/24 Kylee Smith LISW-S [address] [place] [address] Project Manager Interior Design Behavioral Health 05/03/24 Team Status: Inactive Member Role Status Dates Schuyler Barlow , DO Primary Care Provider Active Start: July 30, 2024 End: July 30, 2024 Schuyler Barlow , DO Attending Provider Active Sta rt: July 30, 2024 End: July 30, 2024 Team Status: Inactive Member Role Status Dates Schuyler Barlow , DO Primary Care Provider Active Start: August 15, 2024 End: August 15, 2024 Schuyler Barlow , DO Attending Provider Active Sta rt: August 15, 2024 End: August 15, 2024 Team Status: Inactive Member Role Status Dates Schuyler Barlow , DO Primary Care Provider Active Start: September 03, 2024 End: September 03, 2024 Schuyler Barlow , DO Attending Provider Active Sta rt: September 03, 2024 End: September 03, 2024 Team Status: Inactive Member Role Status Dates Schuyler Barlow , DO Primary Care Provider Active Start: October 22, 2024 End: October 22, 2024 William Hirsch APRN Attending Provider Active Start: October 22, 2024 End: October 22, 2024 Team Status: Inactive Member Role Status Dates Schuyler Barlow , DO Primary Care Provider Active Start: October 29, 2024 End: October 29, 2024 Schuyler Ball , DO Attending Provider Active Sta rt: October 29, 2024 End: October 29, 2024 Goals (unrecognized section and content) Goals may [...] BE BASED ON THE PRIMARY CLINICAL RECORDS. [facility] [employer] [facility]. provides no warranty or guarantee of the accuracy or completeness of information in this document.
--- OUTSIDE RECORDS SUMMARY | 2024-11-01 07:04 | XMS_ITS | Clinical Summary ---
Author Organization [facility] Address [address] [place] [address] Care Team Providers Care Radio Repair Teacher Name Role Phone Schuyler Desir Primary Care Provider [phone] Leigh Ann Carrizales GAS WELDER APPRENTICE-ESTIMATION MANAGER Unavailable Allergies Active Allergy Reactions Criticality Noted Date Comments Bee Venom Unknown 12/01/2013 Medications nadolol (Corgard) 20 MG tablet Take 20 mg by mouth in the morning and 20 mg before bedtime. Active ALPRAZolam (Xanax) 0.25 MG tablet Take 0.25 mg by mouth as needed at bedtime for anxiety Active pantoprazole (ProtoNix) 20 MG EC tablet Take 20 mg by mouth in the morning. Take before meals. Do not crush, chew, or split. . 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 Keratoconjunctivitis sicca o f both eyes not specified as Sjogren's 03/09/2024 Blepharitis of upper and lower eyelids of both e yes 03/09/2024 LEO (generalized anxiety disorder) 2023 Family History Medical History Relation Name Comments Colon cancer Brother other brother B rain Tumor Lymphoma Father Multiple myeloma Neg Hx Relation Name Status Comments Brother Father Social History Tobacco Use Types Packs/Day Years Used Date Smoking Tobacco: Some Days Cigarettes Smokeless Tobacco: Never Alcohol Use Standard Drinks/Week Comments Yes 2 (1 standard drink = 0.6 oz pur e alcohol) caffeine: 5 diet cokes AUDIT-C Answer Date Recorded Q1: How often do you have a drink containing alcohol? 4 or more times a week 07/15/2023 Q2: How many drinks containi ng alcohol do you have on a typical day when you are drinking? 3 or 4 Q3: How often do you have si x or more drinks on one occasion? Less than monthly 07/15/2023 PHQ-2 Answer Date Recorded Patient Health Questionnaire-2 Score 1 11/02/2023 Comments No Sex and Gender Information Value Date Recorded Sex Assigned at Not on file Legal Sex Female 7:02 PM EDT Gender Identity Not on file Sexual Orientation Not on file Last Filed Vital Signs Vital Sign Reading Time Taken Comments Blood Pressure 122/76 07/25/2024 10:41 AM EDT Pulse 58 11/02/2023 8:59 AM EDT Temperature - - Respiratory Rate - - Oxygen Saturation - - Inhaled Oxygen Concentration - - Weight 62.6 kg (138 lb) 07/25/2024 10:41 AM EDT Height 172.7 cm (5' 8 ) 07/15/2023 10:01 AM EDT Body Mass Index 20.98 07/15/2023 10:01 AM EDT Plan of Treatment Upcoming Encounters Date Type Department Care Team (Late st Contact Info) Description 11/21/2024 8:30 AM EDT Ancillary Procedure [facility] [address] [place] [id number] 02/07/2025 10:35 AM EST Office Visit [facility] [address] [place] [address] Darlin Barrett MD [address] [place] [address] 07/31/2025 10:00 AM EDT Office Visit [facility] [address] [place] [address] Juan Ramesh, DO [address] [facility] [address] [place] [address] Health Maintenance Due Date Last Done Comments Influenza Vaccine (#1) 2024 4, 01/05/2023, 12/14/2021, Additional history exists Pneumococcal Vaccine: 65+ Years Completed 8, 01/02/2015 Mammogram Discontinued 09/05/2023, 09/19, 10/10/2020, Additional history exists Procedures Procedure Name Priority Date/Time Associated Diagnosis Comments BI MAMMOGRAM SCREENING TOMOSYNTHESIS BILATERAL Routine 09/05/2023 3:47 PM EDT Encounter for screening mammogram for malignant neoplasm of breast from Last 3 Months or Most Recently Relevant to Health Maintenance Results * Bilateral screening mammogram with tomosynthesis (09/05/2023 3:47 PM EDT) Anatomical Region Laterality Modality Breast Bilateral Mammography 09/06/2023 1:14 PM EDT Impressions 09/06/2023 2:24 PM EDT BIRADS 2 - Benign Follow-up: Routine Screening Mamm Board Certified Radiologists. Accredited by the ACR and FDA. MAMMOGRAPHY IS VERY IMPORTANT TO YOUR HEALTH. THE [place] [employer]IET[employer] GUIDELINES RECOMMEND THAT WOMEN 40 [...] ADDITIONAL VIEWS. TRANSCRIBED BY: ELECTRONICALLY SIGNED BY: MD Ludwig Lilly 09/06/2023 2:24 PM EDT EXAMINATION: BI MAMMOGRAM SCREENING TOMOSYNTHESIS BILATERAL CLINICAL HISTORY:screening COMPARISON: October 16, 2021 RESULT: Density: Scattered fibroglandular density [2] There is no suspicious mass, asymmetry, architectural distortion, or calcification. Typically benign calcifications. Overall appearance stable. Procedure Note Sincere Bang MD - 09/06/2023 EXAMINATION: BI MAMMOGRAM SCREENING TOMOSYNTHESIS BILATERAL CLINICAL HISTORY:screening COMPARISON: October 16, 2021 RESULT: Density: Scattered fibroglandular density [2] There is no suspicious mass, asymmetry, architectural distortion, orcalcification. Typically benign calcifications. Overall appearancestable. IMPRESSION: BIRADS 2 - Benign Follow-up: Routine Screening Mamm Board Certified Radiologists. Accredited by the ACR and FDA. MAMMOGRAPHY IS VERY IMPORTANT TO YOUR HEALTH. THE [place] CANC[employer] SOCIETYGUIDELINES RECOMMEND THAT WOMEN 40 YEARS OF AGE AND OLDER SHOULD HAVE AMAMMOGRAM EVERY YEAR. A REMINDER LETTER WILL BE SENT AT THE APPROPRIATE TIME. THIS FACILITYUTILIZES A REMINDER SYSTEM TO ENSURE ALL PATIENTS RECEIVE REMINDERNOTIFICATIONS AT THE APPROPRIATE TIME BASED ON THE RECOMMENDATIONS OF THISEXAM. THIS INCLUDES REMINDERS FOR ROUTINE SCREENING MAMMOGRAMS, DIAGNOSTICMAMMOGRAMS IN WHICH THE PATIENT IS ASKED TO RETURN FOR ADDITIONAL VIEWS,OR OTHER BREAST IMAGING INTERVENTIONS WHEN APPROPRIATE. THE PATIENT WILLBE PLACED IN THE APPROPRIATE REMINDER SYSTEM INCLUDING A REMINDER AT THEAPPROPRIATE TIME FOR ANY PENDING ADDITIONAL VIEWS. TRANSCRIBED BY: ELECTRONICALLY SIGNED BY: Sincere Bang MD Juan Ramesh DO IMG BI PROCEDURES Final Resul t from Last 3 Months or Most Recently Relevant to Health [place] [address] [employer] MEDICARE ADVANTAGE Care Teams Radio Repair Teacher Relationship Specialty Start Date End Date Schuyler Desir DO PCP - General Internal Medicine 11/02/23 Leigh Ann Carrizales, GAS WELDER APPRENTICE-ESTIMATION MANAGER [address] [place] [id number] Nurse Practitioner Psychiatry 04/05/24
--- OUTSIDE RECORDS SUMMARY | 2024-11-01 07:04 | XMS_ITS | Clinical Summary ---
Author Organization [facility] Address [address] [place] [id number] Care Team Providers Care Medical Affairs Director Name Role Phone Schuyler Desir Primary Care Provider [phone] Allergies Active Allergy Reactions Criticality Noted Date Comments Bee Venom Protein (Honey Bee) Unknown 2013 Medications nadolol (CORGARD) 40 mg tablet Take 80 mg by mouth once daily. Active ALPRAZolam (XANAX) 0.25 mg tablet Take 0.25 mg by mouth once daily. Take 1 tab in AM and 1/2 tab in the afternoon Active citalopram (CELEXA) 20 mg tablet Take 40 mg by mouth once daily. Active fexofenadine (DILMA) 180 mg tabletIndication s:CLL (chronic lymphocytic leukaemia) Take 180 mg by mouth once daily. Active Omeprazole 40 mg capsuleIndicatio ns:Chronic lymphocytic leukemia (HCC) Take 40 mg by mouth. Active busPIRone (BUSPAR) 15 mg tablet TAKE 1 TABLET EVERY DAY FOR THE FIRST WEEK THEN INCREASE TO TWICE A DAY 4 Active sertraline (ZOLOFT) 50 mg tablet Take 75 mg by mouth once daily. 4 Active Active Problems Problem Noted Date Diagnosed Date Chronic lymphocytic leukemia 08/30/2014 Immunizations Immunization Administration Dates Next Due COVID-19 original vaccine, a ge 12+ yr, monovalent ([employer] - PURPLE TOP) 01/10/2021,04/23/2020 influenza (HD-IIV3) vaccine, age 65+ yr, high dose, trivalent, PF (FLUZONE HIGH-DOSE) 01/02/2024,01/10/2019,01/06/2017,12/29 influenza (IIV3) vaccine, tr ivalent, PF (AFLURIA, FLUARIX, FLULAVAL, FLUVIRIN, FLUZONE) 02/01/2018 influenza (aIIV3) vaccine, a ge 65+ yr, trivalent, PF (FLUAD) 12/17/2020,01/09/2018 influenza (aIIV4) vaccine, a ge 65+ yr, quadrivalent, PF (FLUAD QUAD) 01/05/2023,12/14/2021 influenza vaccine, split virus ,12/06/2019,01/09/2018,01/06,12/30/2015 pneumococcal conjugate (PCV1 3) vaccine, 13 valent (PREVNAR 13) 01/02/2015 pneumococcal polysaccharide (PPV23) vaccine, 23 valent (PNEUMOVAX 23) 05/06/2017 zoster (ZVL) vaccine, live (ZOSTAVAX) 01/25/2013 Social History Tobacco Use Types Packs/Day Years Used Date Smoking Tobacco: Former Cigarettes Passive Smoke Exposure: Past Smokeless Tobacco: Never Tobacco Cessation:Counseling Given: Not Answered Comments:Quit 10/2016 Alcohol Use Standard Drinks/Week Comments Yes 0 (1 standard drink = 0.6 oz pur e alcohol) PHQ-2 Answer Date Recorded PHQ-2 score 0 05/14/2024 Area Deprivation Index Answer Date Marcelino rded National Score (1-100), lower number is lower ri sk 78 11/08/2022 State Score (1-10), lower number is lower risk 6 11/08/2022 Data from: https://www.neighborhoodatlas.medicine.[facility].edu/. Last address used for calculation [address] 11/08/2022 Comments No Sex and Gender Information Value Date Recorded Sex Assigned at Not on file Legal Sex Female 12:27 PM EDT Gender Identity Not on file Sexual Orientation Not on file Last Filed Vital Signs Vital Sign Reading Time Taken Comments Blood Pressure 140/74 05/14/2024 10:33 AM EST Pulse 60 05/14/2024 10:33 AM EST Temperature 36.3 C (97.3 F) 05/14/2024 10:33 AM EST Respiratory Rate 16 05/14/2024 10:33 AM EST Oxygen Saturation 100% 05/14/2024 10:33 AM EST Inhaled Oxygen Concentration - - Weight 62.7 kg (138 lb 3.7 oz) 05/14/2024 10:33 AM EST Height 175.3 cm (5' 9.02 ) 05/14/2024 10:[address] Body Mass Index 20.4 05/14/2024 10:33 AM EST Plan of Treatment Upcoming Encounters Date Type Department Care Team (Latest Contact Info) Description 11/05/2024 11:15 AM EDT Office Visit [facility] [address] [place] [address] 6 month follow up lab 11/05/2024 11:30 AM EDT Visit (SP) Office Hematology/Oncology [address] [place] [address] Leeanne Pearce APRN.CURATOR OF COLLECTIONS [address] [place] [address] 6 month follow up lab Health Maintenance Due Date Last Done Comments Anxiety Screening 1968 Depression Screening 1968 Hepatitis C Screening 1968 DTaP,Tdap,Td Vaccine (1 - Tdap) 09/22/1967 Shingrix Vaccine (2 of 3) 03/22/2013 01/25/2013 RSV Vaccine (1 - 1-dose 75+ series) 09/22/2023 Advance Directive Discussion 03/21/2024 Medicare Advantage Annual Wellness Visit 03/21/2024 Influenza Vaccine (#1) 2024 4, 01/05/2023, 12/14/2021, Additional history exists Diabetes Screening 05/14/2027 05/14/2024, 0 11/07/2023, 05/09/2023, Additional history exists Pneumococcal Vaccine: 50+ Completed 05/06/2017, Bone Density Screening Completed 4, 11/19/2020, 05/22/2018 Mammogram Screening Discontinued 09/05/2023, 09/05/2023, 10/16/2021, Additional history exists Procedures Procedure Name Priority Date/Time Associated Diagnosis Comments COMPREHENSIVE METABOLIC PANEL Routine 05/14/2024 10:21 AM EST CLL (chronic lymphocytic leukemia) (HCC) from Last 3 Months or Most Recently Relevant to Health Maintenance Results * (ABNORMAL) COMPREHENSIVE METABOLIC PANEL (05/14/2024 10:21 AM EST) Pathologist [facility] Protein, Total 6.3 6.3 - 8.0 g/dL 05/15/2024 12:42 PM EST [facility] Albumin 4.4 3.9 - 4.9 g/dL 05/15/2024 12:42 PM EST [facility] Calcium, Total 9.1 8.5 - 10.2 mg/dL 05/15/2024 12:42 PM EST [facility] Bilirubin, Total 0.4 0.2 - 1.3 mg/dL 05/15/2024 12:42 PM [facility] Alkaline Phosphatase 84 34 - 123 U/L 05/15/2024 12:42 PM EST [facility] AST 22 13 - 35 U/L 05/15/2024 12:42 PM EST [facility] ALT 18 7 - 38 U/L 05/15/2024 12:42 PM [facility] Glucose 85 74 - 99 mg/dL 05/15/2024 12:42 PM [facility] Comment: The [place] Diabetes Association (ADA) provides guidance for cutoff [...] Standards of Medical Care in Diabetes 2016, [place] Diabetes Association. Diabetes Care. 2016.39(Suppl 1). BUN 14 7 - 21 mg/dL 05/15/2024 12:42 PM [facility] Creatinine 0.74 0.58 - 0.96 mg/dL 05/15/2024 12:42 PM EST [facility] Sodium 133(L) 136 - 144 mmol/L 05/15/2024 12:42 PM [facility] Potassium 4.6 3.7 - 5.1 mmol/L 05/15/2024 12:42 PM [facility] Chloride 100 98 - 107 mmol/L 05/15/2024 12:42 PM [facility] CO2 24 22 - 30 mmol/L 05/15/2024 12:42 PM EST [facility] Anion Gap 9 8 - 15 mmol/L 05/15/2024 12:42 PM EST [facility] Estimated Glomerular Filtration Rate 84 >=60 mL/min/1.7 3m 05/15/2024 12:42 PM EST [facility] Comment:Estimated Glomerular Filtration Rate (eGFR) is calculated using the 2020 CKD-EPI creatinine equation. This equation utilizes serum creatinine, sex, and age as parameters. The creatinine assay has traceable calibration to isotope dilution- mass spectrometry. Refer to KDIGO guidelines for clinical interpretation. In patients with unstable renal function, e.g. those with acute kidney injury, the eGFR may not accurately reflect actual GFR. Blood BLOOD SPECIMEN / Unknown Venipuncture / Unknown 05/14/2024 10:21 AM EST 05/14/2024 10:21 AM EST us Fernando Sandoval MD LABORATORY Final Result [facility] [address] [address], from Last 3 Months or Most Recently Relevant to Health Maintenance Insurance [employer] MEDICARE Care Teams Medical Affairs Director Relationship Specialty Start Date End Date Schuyler Desir DO PCP - General Internal Medicine 08/22/14
== END 2024-11-01 07:03 | disposition home or self-care (01) ==
LOC: US 07:02
PROVIDERS: PCP Internal Medicine; Visit Provider Internal Medicine
DX: M79.89 Other specified soft tissue disorders (principal); D17.23 Benign lipomatous neoplasm of skin and subcutaneous tissue of right leg
CPT/HCPCS: 76882

== ENCOUNTER 2025-03-06 14:09 | Outpatient (OUT) | payer MEDICARE, SELFPAY ==
--- OUTSIDE RECORDS SUMMARY | 2025-03-01 05:45 | XMS_ITS | Continuity of Care Document ---
Author Organization [facility] Address [address] [place] [address] Phone Care Team Providers Care Carburetor Specialist Name Role Phone Schuyler Desir DO Primary Care Provider Schuyler Desir DO Attending Provider [phone] Care Teams Patient Care Team Team Status: Active Member Role/Relationship Status Dates Schuyler Desir DO Primary Care Provider Active Visit Care Team Team Status: Inactive Member Role/Relationship Status Dates Schuyler Desir DO Primary Care Provider Active Start: December 06, 2024 End: December 06Darian oLcke ProviderActiveStart: December 06, 2024 End: December 06, 2024 Patient Care Team Team Status: Inactive Member Role/Relationship Status Dates Schuyler Desir DO Primary Care Provider Active Start: March 01, 2025 End: March 01Darian Locke ProviderActiveStart: March 01, 2025 End: March 01, 2025 Chief Complaint and Reason for Visit Chief Complaint Admit Date chest/sinus congestion, covid neg Septem 2024 11:15am Chest Congestion March 01, 2025 10:01am Reason for Visit Admit Date Acute bronchitis due to other specified organisms December 06, 2024 11:15am Acute exacerbation of chroni c obstructive airways disease December 06, 2024 11:15am Acute bronchitis due to other specified organisms March 01, 2025 10:01am Acute exacerbation of chroni c obstructive pulmonary disease March 01, 2025 10:01am Ankle pain, right March 01, 2025 10:01am Foot pain, right March 01, 2025 10:01am Allergies, Adverse Reactions, Alerts Allergen Type Severity Reaction Last Updated Verified Status bee venom protein (honey bee) Allergy Unknown swelling March 01, 2 025 10:06am Yes Active No Known Allergies Allergy Unknown March 01, 2025 10:06amYesActive Social History Smoking Status Status Start Date End Date Date of Observa tion Current some day smoker August 19, 2022 6:54am Observation Status Observation Response Date of Response Legal Sex Female (finding) Sex Assigned At BirthFemaleJuly 1950 Family History Relationship Condition Age at Onset Recorded Date/T michelle brother Malignant neoplasm of brain Unknown Malignant neoplasm of colonUnknownDeceasedUnknownfatherDeceasedUnknownMalignant neoplasmUnknownLymphomaUnknownmotherDeceasedUnknown Problems Active Problems Problem Diagnosis/Recorded Date Onset Date Status C omments Lipoma of back July 30, 2024 9:11am Unknown Active Mass of soft tissue of right lower extremityAugust 2024 8:17amUnknown ActiveNicotine addictionAugust 2023 12:40pmUnknownActiveLDCT: no suspicious nodules - 10/2023Major depressionJune 2023 6:51amUnknownActiveGAD (generalized anxiety disorder)September 03, 2023 6:51amUnknownActiveAtherosclerosis of mi'kmaq arteries of extremities with intermittent claudication, bilateral legs July 30, 2024 7:45pmUnknownActiveLow back painMay 2024 9:11amUnknown ActiveAnkle sprainApril 2023 1:31pmUnknownActiveCLL (chronic lymphocytic leukemia)August 18, 2022 12:33pmUnknownActiveRaynaud's phenomenonSeptember 2023 10:19amUnknownActiveRLS (restless legs syndrome)June 20, 2023 1:31pm UnknownActiveCryptic tonsilApril 2023 1:31pmUnknownActiveLipoma of right lower extremityAugust 2024 8:15amUnknownActiveAnkle pain, rightDecember 2024 10:32amUnknownActiveFoot pain, rightDecember 2024 10:32am UnknownActiveAcute bronchitis due to other specified organismsJune 2024 10:54amUnknownActiveAcute exacerbation of chronic obstructive airways disease March 01, 2025 10:37amUnknownActiveGERD (gastroesophageal reflux disease) September 03, 2023 6:51amUnknownActiveChronic bronchitisJune 2023 6:51am UnknownActiveConstipationJuly 2023 8:56amUnknownActive Medications Medication Status Dose Units Route Directions Qty Days Refills S tart Date Stop Date End Date Reason(s) Instructions Adherence Alprazolam 0.25 mg tablet Discontinued 0.25 MG PO Twice daily as needed for anxiety 60 30 2 2023 7:46am March 29, 2024 10:27pmGeneralized anxiety disorder Generalized anxiety disorderVenlafaxine 37.5 mg capsule,extended release 24hr Owkgsrbzgwip74.5MGPOEvery kccrxwq23591Nlxv 2023 11:00pmSeptember 2023 9:47amNadolol 40 mg tabletDiscontinued0.ROUTE.XUKZJJG3067Mdzfjefao 2023 7:01pmSeptember 2024 7:32amTAKE 1 TABLET BY MOUTH TWICE A DAYCitalopram (Celexa) 20 mg llgjtaPnbapefohdul11EWCKUiwfr93911Mgfyozj 2023 11:00pm April 22, 2024 9:09amAlprazolam 0.25 mg tabletDiscontinued0.25MGPOTwice daily as needed for ccilnsz14973Zgnwfqx 2024 10:26pmSeptember 2024 12:18pmGeneralized anxiety disorder Generalized anxiety disorderCitalopram 20 mg tabletDiscontinued0.ROUTE.ESYKWUI04 0February 2024 9:09amMay 2024 8:49amTAKE 1 TABLET BY MOUTH EVERY DAY Doxycycline Hyclate 100 mg xnxraunTxfjfnkoypds312FVIXSdmfs bpdxm1763Zaehiqjg 2024 12:00amMay 2024 8:13amAlprazolam 0.25 mg tabletActive0.25MGPO Twice nyiit99405Ytlcjnwyz 2024 12:17pmGeneralized anxiety disorder Generalized anxiety disorderComplies with drug therapyNadolol 40 mg tabletActive 0.ROUTE.EMSKDAE9319Xdjcyurdm 2024 7:32amTAKE 1 TABLET BY MOUTH TWICE A DAY Complies with drug therapyPantoprazole 40 mg tablet,delayed release (DR/EC) Lwgtfz97WHHNKobfj38288Ersmnwjgu 2024 2:41pmComplies with drug therapy Citalopram 40 mg fwslrkWmkfit82LMAEDsbzo at pcxrymk23650Sskrdur 2024 7:53amComplies with drug therapyCitalopram 40 mg dygqpfCepozteaefiq23MRNIHwhav August 17, 2022 11:00pmJune 2023 9:09amAlprazolam 0.25 mg tablet Discontinued0.25MGPODailyMay 2022 11:00pmJuly 2023 7:48amPantoprazole 40 mg tablet,delayed release (DR/EC)Mhgxubvmttvn77CWYYCpbxiDat 2022 11:00pmMarch 2023 12:10pmNadolol 40 mg kmblloMqipbshguhuu87HNSHXlckkBjr 2022 11:00pmMarch 2023 8:50amMultivitamin (Hair,Nails And Skin Vitamin) JvynlaDfvjzk8XOABUMhhjrGrl 2022 11:00pmComplies with drug therapy Fexofenadine (Shakira Allergy) 60 mg QhwwxrMoqmfr86XEGZYlgxkNsi 2022 11:00pmComplies with drug therapyVitamin E 400 unit FqaadvFmbciecbrawx77AWUP DailyAugust 18, 2022 11:00pmAugust 2024 1:35pmNadolol (Corgard) 40 mg Tablet Hrurevkybblb47BPRGJhrnyLun 2022 11:00pmMarch 2023 8:50am Cholecalciferol (Vitamin D3) (Vitamin D3) 25 mcg (1,000 unit) Capsule Pjzzutdsrkrd26ZNLRACvexhTih 2022 11:00pmAugust 2024 1:34pmGabapentin 100 mg vgnpjzqOmrxrenedvto506CQULTllhj at bedtime as needed for KZE30087Ciqdv 2023 11:00pmSeptember 2023 9:48amPantoprazole 40 mg tablet,delayed release (DR/EC)Kjugvbhgjqsc58WIPSRlmed28405Onjk 2023 8:49amSeptember 2024 2:41pmSertraline (Zoloft) 50 mg znjdqtFjhecxryklld45FABRTgmidEvdjneecw 2023 11:00pmOctober 2023 11:41amAmoxicillin 875 mg vhfbrpOnaestirkddo949QV POTwice bgiio1609Giki 2024 11:00pmAugust 2024 1:34pmAmoxicillin 875 mg lbixnyHbqxnf766YRKMUzvxc amagj3895Gohcyjfd 2024 12:00amComplies with drug therapyAmoxicillin 875 mg kfgvsuNmbkyr670HXYFMvpzv nnmif7720Bxbonxow 2024 10:33amComplies with drug therapyPrednisone 20 mg sjaegcOwpnpo70BMYO .HIRNPCC347Fyvtvkuy 2024 12:00am20 mg: take bid w/ food x 3 days, then qd w/ food x 2 daysComplies with drug therapyNadolol (Corgard) 40 mg tablet Pjhxyldchdfk94INZJPamjr dailyJersey City Medical Centerch 2023 11:00pmMarch 2023 12:10pm Pantoprazole 40 mg tablet,delayed release (DR/EC)Uokhelakxvwi43WESCBruhc45562 June 17, 2023 12:09pmJuly 2023 8:49amNadolol (Corgard) 40 mg tablet Gsztlnomokex68KJPBHrnve lnsjh225710Udjjd 2023 12:09pmSeptember 2023 7:02pmSertraline (Zoloft) 50 mg acskaaUwzkehiaoqzg74JKEUYrostPwcl 2023 11:00pmJuly 2023 12:15pmcalciumActivePOAugust 2024 11:00pmComplies with drug therapyvitamin bActivePOAugust 2024 11:00pmComplies with drug therapyvitamin cActivePOAugust 2024 11:00pmComplies with drug therapy Sennosides (Senokot) 8.6 mg tabletActive8.6MGPODaily at bedtimeAugust 2024 11:00pmComplies with drug therapyPrednisone 20 mg qjclsiDbygbnublrii51YIYXIo Udannhav5267Chtkgncx 2024 12:00amFebruary 2024 12:51pm1 tab bid w/ food x 4 days, then qd w/ food x 3 daysTriamcinolone Acetonide 0.1 % ointment Jdbitqwfpeiz3BFYXHYVDZUSPOCyxcz aacwd41376Ioqidrdo 2024 12:00amAugust 2024 1:35pmCitalopram 40 mg dvdznpZfghbwgehsbg35TVFFXxvwa at fptvrxb76376Quc 2024 8:48amOctober 2024 7:54amAmoxicillin 875 mg tabletDiscontinued 875MGPOTwice mipla8328Mnckeurjm 2024 10:46amDecember 2024 10:06am Immunizations Immunization Event Date Not Given Reason Dose Number Bandmill Operator Lot Number Reason(s) Given Vaccine Information Statement (VIS) Detail Administration Location COVID-19 mRNA, Comirnaty (GetAutoBids) April 23, 2020 COVID-19 mRNA, Comirnaty (GetAutoBids)May 14OVID-19 mRNA, Comirnaty (GetAutoBids)January 10OVID mRNA Bivalent Booster (GetAutoBids)November 27, 2021influenza, unspecified formulationOctober 2015influenza, unspecified formulationOctober 2016influenza, unspecified formulationOctober 2017influenza, unspecified formulationSeptember 2019influenza, unspecified formulationSeptember 2020influenza, unspecified formulationSeptember neumococcal Conjugate Vaccine, 13 valentOctober 2014Pneumococcal Polysacc. Vaccine, 23 valentFebruary 2017 Vital Signs Vital Reading Result Reference Range Collection Date/Time Height 69 [in_i] December 06, 2024 10:66oqDwngvi49.70 kgSeptember 2024 10:29amHeart Rate 58 /qtz84-621Blpfdsgbl 2024 10:29amRespiratory rate12 /omh88-87Fxudkuluc 18th, 2025 10:29amBP Vesmvpum425 mm[Hg]100-140September 2024 10:29amBP Cqgynygsp89 mm[Hg]60-100September 2024 10:29amBMI (Body Mass Index)20.4 kg/d8Blafqxfhe2024 10:24sqLxuibn46 [in_i]March 01, 2025 10:17am Laxnxh12.65 kgDecember 2024 10:17amHeart Rate65 /imr76-656Mpxitzex 12th, 2025 10:17amRespiratory rate12 /ggm22-67Ubjzsqmb 12th, 2025 10:17amBP Systolic 137 mm[Hg]100-140Dece2024 10:17amBP Tbnbpfdjd35 mm[Hg]60-100December 2024 10:17amBMI (Body Mass Index)20.4 kg/o8Abarnnnp2024 10:17am Advance Directives Advance Directive Response Recorded Date/ Time Advance Directives No April 13, 2017 11:48am Insurance Providers Guarantor Nadeen Oquendo Address [address] [place] [address]Dfhsuck Info.Home Phone: Coverage Status Update:2024 Payer Group Member ID Coverage Type Subscriber Relationship to Subscriber Effective Date Expiration Date [employer] [facility] Id: [id number] L Collins Id: [id number] [address] [place] [address] Home Phone: Email: [email or web address] Encounters Encounter Location(s) Arrival/Admit Date Discharge/Departure Date Discharge/Departure Disposition Provider(s) Departed Physician/ Provider Office Visit -[facility] December 06, 2024 11:15am December 06, 2024 11:46am Discharged to home care or self care (routine discharge) Schuyler Desir DO Departed Physician/ Provider Office Visit -[facility] March 01, 2025 10:01am March 01, 2025 10:44am Discharged to home care or self care (routine discharge) Schuyler Desir , Recent Diagnosis Onset Date Admit Date Acute bronchitis due to othe r specified organisms Unknown December 06, 2024 11:15am Acute exacerbation of chroni c obstructive airways disease Unknown December 06, 2024 11:15am Acute bronchitis due to othe r specified organisms Unknown March 01, 2025 10:01am Acute exacerbation of chroni c obstructive pulmonary disease Unknown March 01, 2025 10:01am Ankle pain, right Unknown March 01, 2025 10:01am Foot pain, right Unknown March 01, 2025 10:01am Assessments Diagnosis Onset Date Resolution Status Admit Date Acute bronchitis due to other specified organisms acuteSept2024 11:15amAcute exacerbation of chronic obstructive airways diseasenoneactiveSept2024 11:15amAcute bronchitis due to other specified organismsacuteDecember 2024 10:01amAcute exacerbation of chronic obstructive pulmonary diseasenoneactiveDecehu [facility] 2024 10:01amAnkle pain, rightacuteDecember 2024 10:01amFoot pain, rightacuteDecember 2024 10:01am Plan of Treatment Author Schuyler [facility] 2024 10:38amI have instructed this patient to use Robitussin or Mucinex for cough, saline and Flonase NS for congestion and Tylenol for pain and fever. Continue antibiotics until all the medication has been taken. Report to the ER if develop any CP or SOB Instructed on use of Mucinex and pushing fluids. Prescribed short course of Prednisone, tapered over 5 days Instructed on ice and ROm exercises Instructed on ice and ROm exercises Author Schuyler [facility] 2024 10:49amI have instructed this patient to use Robitussin or Mucinex for cough, saline and Flonase NS for congestion and Tylenol for pain and fever. Continue antibiotics until all the medication has been taken. Report to the ER if develop any CP or SOB Push fluids, begin Mucinex and rest. Prednisone if develop chest tightness or wheezing. ER of CP or SOB Future Tests Future scheduled test information is unavailable Pending Tests Test Name Ordered Date Scheduled Date XR ankle RT 2V March 01, 2025 10:30am XR foot RT 2VDece2024 10:30am Future Visits Future appointment information is unavailable Future Procedures Future procedure information is unavailable Future Medications Future medication information is unavailable Patient Instructions Patient instructions are unavailable
--- OUTSIDE RECORDS SUMMARY | 2025-03-06 14:17 | XMS_ITS | Clinical Summary ---
Author Organization [facility] Address [address] [place] [id number] Care Team Providers Care Office Mail Clerk Name Role Phone Schuyler Desir Primary Care Provider [phone] Allergies Active AllergyReactionsCriticalityNoted DateCommentsBee Venom Protein (Honey Bee)Xpihrdy0712/01/2013 Medications MedicationSigDispense QuantityRefillsLast FilledStart DateEnd DateStatus nadolol (CORGARD) 40 mg tablet Take 80 mg by mouth once daily.Active ALPRAZolam (XANAX) 0.25 mg tablet Take 0.25 mg by mouth once daily. Take 1 tab in AM and 1/2 tab in the afternoon Active citalopram (CELEXA) 20 mg tablet Take 40 mg by mouth once daily.Active Omeprazole 40 mg capsule Indications:Chronic lymphocytic leukemia (HCC)Take 40 mg by mouth.Active Active Problems ProblemNoted DateDiagnosed DateChronic lymphocytic yyvppwln98/12/2015 Immunizations ImmunizationAdministration DatesNext DueCOVID-19 original vaccine, age 12+ yr, monovalent (PFIZER-BIONTECH - PURPLE TOP)01/10/2021,04/23/2020influenza (HD- IIV3) vaccine, age 65+ yr, high dose, trivalent, PF (FLUZONE HIGH-DOSE) 01/02/2024,01/10/2019,01/06/2017,12/30/2015influenza (IIV3) vaccine, trivalent, PF (AFLURIA, FLUARIX, FLULAVAL, FLUVIRIN, FLUZONE)02/01/2018influenza (aIIV3) vaccine, age 65+ yr, trivalent, PF (FLUAD)12/17/2020,01/09/2018influenza (aIIV4) vaccine, age 65+ yr, quadrivalent, PF (FLUAD QUAD)01/05/2023,12/14/2021influenza vaccine, split virus12/17/2020,12/06/2019,01/09/2018,01/06/2017,12/30/2015 pneumococcal conjugate (PCV13) vaccine, 13 valent (PREVNAR 13)01/02/2015 pneumococcal polysaccharide (PPV23) vaccine, 23 valent (PNEUMOVAX 23)05/06/2017 zoster (ZVL) vaccine, live (ZOSTAVAX)01/25/2013 Social History Tobacco UseTypesPacks/DayYears UsedDateSmoking Tobacco: FormerCigarettesPassive Smoke Exposure: PastSmokeless Tobacco: Never Tobacco Cessation:Counseling Given: Not Answered Comments:Quit 10/2016 Alcohol UseStandard Drinks/WeekCommentsYes0 (1 standard drink = 0.6 oz pure alcohol)PHQ-2AnswerDate RecordedPHQ-2 eqahb4455Area Deprivation Index AnswerDate RecordedNational Score (1-100), lower number is lower risk78 11/08/2022State Score (1-10), lower number is lower bucu9483Data from: https://www.neighborhoodatlas.medicine.[facility].edu/. Last address used for [address] 3CommentsNoSex and Gender InformationValueDate RecordedSex Assigned at BirthNot on fileLegal SexFemale 08/22/2014 12:27 PM EDTGender IdentityNot on fileSexual OrientationNot on file Last Filed Vital Signs Vital SignReadingTime TakenCommentsBlood Afhtqfys741/77011/05/2024 11:17 AM EDT Njouz0394/18/2025 11:17 AM VUQNiohggfuspz83.3 ??C (97.3 ??F)11/05/2024 11:17 AM EDTRespiratory Nxiv464211/05/2024 11:17 AM EDTOxygen Rbridmxwoo82%11/05/2024 11:17 AM EDTInhaled Oxygen Concentration--Natgbi58.9 kg (138 lb 10.7 oz)11/05/2024 11:17 AM NOVLjrvqg124.3 cm (5' 9.02 )11/05/2024 11:17 AM EDTBody Mass Index20.47 11/05/2024 11:17 AM EDT Plan of Treatment DateTypeDepartmentCare Team (Latest Contact Info)Pngylrnmjew90/19/2026 2:45 PM ESTOffice Visit [facility] [address] [place] [address] [place] [address] 6 month follow up lab05/09/2025 3:00 PM ESTVisit (SP) Office Hematology/Oncology [address] [place] [address] [place] [address] Leeanne Pearce APRN.[facility] [address] [place] [address] [place] [address] 6 month follow up labHealth MaintenanceDue DateLast DoneCommentsAnxiety Nzcpzyxiv55/04/1967Depression Fltopmxqa15/04/1967Hepatitis C Oeragpiyi50/04/1967 DTaP,Tdap,Td Vaccine (1 - Tdap)09/22/1967Shingrix Vaccine (2 of 3)03/22/2013 01/25/2013RSV Vaccine (1 - 1-dose 75+ series)09/22/2023dvance Directive Ttwdrbeqei36/01/2025Medicare Advantage Annual Wellness Visit03/21/2024ovid-19 Vaccine ( season)/, 12/22/2022, 11/27/2021, Additional history existsInfluenza Vaccine (#1)/, 01/05/2023, 12/14/2021, Additional history existsDiabetes Ddkdxriru24/, 05/14/2024, 11/07/2023, Additional history existsPneumococcal Vaccine: 50+ Mwwwoxdta91/16/2018, 01/02/2015Bone Density DcphkrvwmYuzqfcshn90/17/2024, 11/19/2020, 05/22/2018Mammogram DegalkikdDxwjscqvplsz32/17/2024, 09/05/2023, 10/16/2021, Additional history exists Procedures Procedure NamePriorityDate/TimeAssociated DiagnosisCommentsCOMPREHENSIVE METABOLIC WURPZCwlvbqz41/18/2025 11:10 AM EDT CLL (chronic lymphocytic leukemia) (HCC) from Last 3 Months or Most Recently Relevant to Health Maintenance Results * (ABNORMAL) COMPREHENSIVE METABOLIC PANEL (11/05/2024 11:10 AM EDT)Component ValueRef RangeTest MethodAnalysis TimePerformed AtPathologist Signature Protein, Total6.46.3 - 8.0 g/dL11/05/2024 11:51 AM [facility] LABAlbumin4.73.9 - 4.9 g/dL11/05/2024 11:51 AM [facility] LABCalcium, Total9.38.5 - 10.2 mg/dL11/05/2024 11:51 AM [facility] LABBilirubin, Total0.40.2 - 1.3 mg/dL 11/05/2024 11:51 AM [facility] LABAlkaline Gsolhlecfuf3860 - 123 U/L11/05/2024 11:51 AM [facility] OJRFSY3053 - 35 U/L11/05/2024 11:51 AM [facility] WHMJPC059 - 38 U/L11/05/2024 11:51 AM [facility] YAODcbnwkq602(H)74 - 99 mg/dL11/05/2024 11:51 AM [facility]OP[facility] LABComment: The [place] Diabetes Association (ADA) provides guidance for cutoff values for fasting glucose andrandom glucose. The ADA defines fasting as no [...] Standards of Medical Care in Diabetes 2016, [place] [employer]. Diabetes Care. 2016.39(Suppl 1). XJA350 - 21 mg/dL11/05/2024 11:51 AM [facility] LAB Creatinine0.750.58 - 0.96 mg/dL11/05/2024 11:51 AM [facility] UMCIvyluh864(L)136 - 144 mmol/L11/05/2024 11:51 AM [facility] LABPotassium4.63.7 - 5.1 mmol/L11/05/2024 11:51 AM [facility] HPRFbsgydes92734 - 107 mmol/L11/05/2024 11:51 AM EDT [facility] QFPFQ64218 - 30 mmol/L11/05/2024 11:51 AM T [facility] LABAnion Gap98 - 15 mmol/L11/05/2024 11:51 AM [facility] LABEstimated Glomerular Filtration Rate83 >=60 mL/min/1.73m 11/05/2024 11:51 AM [facility] LABComment:Estimated Glomerular Filtration Rate (eGFR) is calculated using the 2020 CKD-EPI creatinine equation. This equation utilizes serum creatinine, sex, and age as parameters. The creatinine assay has traceable calibration to isotope dilution- mass spectrometry. Refer to KDIGO guidelines for clinical interpretation. In patients with unstable renal function, e.g. those with acute kidney injury, the eGFRmay not accurately reflect actual GFR.Specimen (Source)Anatomical Location / LateralityCollection Method / VolumeCollection TimeReceived TimeBloodBLOOD SPECIMEN / UnknownVenipuncture / Jwymaxm1911/05/2024 11:10 AM EDT11/05/2024 11:10 AM EDT Narrative Authorizing ProviderResult TypeResult StatusFernando Sandoval MDLABORATORYFinal ResultPerforming OrganizationAddressCity/State/ZIP CodePhone Number [facility] [address] [place] [address] from Last 3 Months or Most Recently Relevant to Health Maintenance Insurance Care Teams Team MemberRelationshipSpecialtyStart DateEnd Date Schuyler Desir DO PCP - GeneralInternal Medicine08/22/14
--- OUTSIDE RECORDS SUMMARY | 2025-03-06 14:17 | XMS_ITS | Clinical Summary ---
Author Organization [facility] Address [address] [place] [address] Care Team Providers Care Figurine Maker Name Role Phone Schuyler Desir Primary Care Provider [phone] Leigh Ann Carrizales COMPUTER SECURITY SPECIALIST-TWISTER IN Unavailable Allergies Active AllergyReactionsCriticalityNoted DateCommentsBee TcgsyFvxxeay06/13/2014 Medications MedicationSigDispense QuantityRefillsLast FilledStart DateEnd DateStatus nadolol (Corgard) 20 MG tablet Take 20 mg by mouth in the morning and 20 mg before bedtime.Active ALPRAZolam (Xanax) 0.25 MG tablet Take 0.25 mg by mouth as needed at bedtime for anxietyActive pantoprazole (ProtoNix) 20 MG EC tablet Take 20 mg by mouth in the morning. Take before meals. Do not crush, chew, or split. .Active citalopram (CeleXA) 20 MG tablet Take 20 mg by mouth Daily5Active triamcinolone (Kenalog) 0.1 % ointment Apply topically 2 (two) times a day as needed for /12/2025Active Multiple Vitamins-Minerals (EYE HEALTH AREDS 2 PO) Take 2 capsules by mouth in the morning and 2 capsules before bedtime.Active Active Problems ProblemNoted DateDiagnosed DateBilateral posterior capsular opacification 03/09/2024Keratoconjunctivitis sicca of both eyes not specified as Sjogren's 03/09/2024lepharitis of upper and lower eyelids of both eyes03/09/2024GAD (generalized anxiety disorder)2023 Encounters DateTypeDepartmentCare VsqvYwjarifvcyl23/17/2025 8:15 AM EDTOffice Visit [facility] [address] [place] [address] Sean Gibbons, Keratoconjunctivitis sicca of both eyes not specified as Sjogren's (Primary Dx); Blepharitis of upper and lower eyelids of both eyes, unspecified type; Bilateral posterior capsular nemdrwhxthvdo51/17/2025amboo flowsheet [facility] [address] [place] [address] Sean Gibbons DO 12/05/2024Travelfrom Last 3 Months Family History Medical HistoryRelationNameCommentsColon cancerBrotherother brother Brain Tumor LymphomaFatherMultiple myelomaNeg HxRelationNameStatusCommentsBrotherDeceased Father Social History Tobacco UseTypesPacks/DayYears UsedDateSmoking Tobacco: Some DaysCigarettes Smokeless Tobacco: NeverAlcohol UseStandard Drinks/WeekCommentsYes2 (1 standard drink = 0.6 oz pure alcohol)caffeine: 5 diet cokesAUDIT-CAnswerDate RecordedQ1: How often do you have a drink containing alcohol?4 or more times a week 07/15/2023Q2: How many drinks containing alcohol do you have on a typical day when you are drinking?3 or Q3: How often do you have six or more drinks on one occasion?Less than hmteedw60/26/2024PHQ-2AnswerDate Recorded Patient Health Questionnaire-2 Afhqw036regnantCommentsNoSex and Gender InformationValueDate RecordedSex Assigned at BirthNot on fileLegal SexFemale 06/02/2022 7:02 PM EDTGender IdentityNot on fileSexual OrientationNot on file Last Filed Vital Signs Vital SignReadingTime TakenCommentsBlood Xooprgmw441/7605 10:41 AM EDT Pwmhg871011/02/2023 8:59 AM EDTTemperature--Respiratory Rate--Oxygen Saturation-- Inhaled Oxygen Concentration--Cqsmrz69.6 kg (138 lb)07/25/2024 10:41 AM EDT Dqekii765.7 cm (5' 8 )07/15/2023 10:01 AM EDTBody Mass Index20.98007/15/2023 10:01 AM EDT Plan of Treatment DateTypeDepartmentCare Team (Latest Contact Info)Rqgkaqofior15/21/2026 11:00 AM ESTOffice Visit [facility] [address] [place] [address] Darlin Barrett MD [address] [place] [address] 07/31/2025 10:00 AM EDTOffice Visit [facility] [address] [place] [address] Juan Ramesh DO [address] [place] [address] Health MaintenanceDue DateLast DoneCommentsCOVID-19 Vaccine ( season) 61, 12/09/2023, 12/22/2022, Additional history exists Pneumococcal Vaccine: 65+ EihvuSoajjfvca17/16/2018, 01/02/2015Mammogram Mqwecnbczsxa36/03/2025, 09/05/2023, 10/16/2021, Additional history exists Influenza YydgpwjIovgbvaqr16/08/2025, 01/02/2024, 01/05/2023, Additional history exists Procedures Procedure NamePriorityDate/TimeAssociated DiagnosisCommentsBI MAMMOGRAM SCREENING TOMOSYNTHESIS DCHTEQSIWIdotjlf48/03/2025 8:45 AM EDT Encounter for screening mammogram for malignant neoplasm of breast from Last 3 Months or Most Recently Relevant to Health Maintenance Results * Bilateral screening mammogram with tomosynthesis (11/21/2024 8:45 AM EDT) Anatomical RegionLateralityModalityBreastBilateralMammographySpecimen (Source) Anatomical Location / LateralityCollection Method / VolumeCollection Time Received Time11/21/2024 12:02 PM EDT Impressions 11/21/2024 12:08 PM EDT Impression: No specific evidence of malignancy seen in either breast. BIRADS 2 - Benign Findings DENSITY: The breasts are heterogeneously dense, which may obscure small masses. FOLLOW-UP: Routine Screening Mammogram ELECTRONICALLY SIGNED BY: Colby Gallgeo M.D. Narrative 11/21/2024 12:08 PM EDT Examination: BI MAMMOGRAM SCREENING TOMOSYNTHESIS BILATERAL Clinical History: screening Technique: Screening digital mammography study of both breasts was performed with 2-D and 3-D tomosynthesis imaging. Study was compared to the prior exam dated 09/05/2023. Findings: There is no evidence of interval dominant spiculated mass, grouped microcalcifications, or skin thickening which would be suggestive of malignancy. ?? A few benign-appearing calcifications are seen on the left. Axillary lymph nodes including a partially visualized lymph node are noted on the left and appear grossly unremarkable. Procedure Note Colby Gallego MD - 11/21/2024 Examination: BI MAMMOGRAM SCREENING TOMOSYNTHESIS BILATERAL Clinical History: screening Technique: Screening digital mammography study of both breasts wasperformed with 2-D and 3-D tomosynthesis imaging. Study was compared tothe prior exam dated 09/05/2023. Findings: There is no evidence of interval dominant spiculated mass,grouped microcalcifications, or skin thickening which would be suggestiveof malignancy. A few benign-appearing calcifications are seen on the left. Axillary lymphnodes including a partially visualized lymph node are noted on the leftand appear grossly unremarkable. IMPRESSION: Impression: No specific evidence of malignancy seen in either breast. BIRADS 2 - Benign Findings DENSITY: The breasts are heterogeneously dense, which may obscure smallmasses. FOLLOW-UP: Routine Screening Mammogram ELECTRONICALLY SIGNED BY: Colby Gallego M.D. Authorizing ProviderResult TypeResult StatusRichard A Visci DOIMG BI PROCEDURES Final Result from Last 3 Months or Most Recently Relevant to Health Maintenance Insurance Care Teams Team MemberRelationshipSpecialtyStart DateEnd Date Schuyler Desir, [address] [place] [address] PCP - GeneralInternal Medicine11/02/23 Alie-Leigh Ann Gallardo, COMPUTER SECURITY SPECIALIST-TWISTER IN [address] [place] [address] Nurse PractitionerPsychiatr04/05/24
--- OUTSIDE RECORDS SUMMARY | 2025-03-06 14:17 | XMS_ITS | Clinical Summary ---
Author Organization [facility] Address [address] [facility] [place] [address] Care Team Providers Care Breaker Machine Tender Name Role Phone Schuyler Desir DO Primary Care Provider [phone] Allergies No known active allergies Medications MedicationSigDispense QuantityRefillsLast FilledStart DateEnd DateStatus Citalopram Hydrobromide (CELEXA PO) Celexa; take 1 tablet by oral route every day.Active nadolol (CORGARD) 80 MG Tab take 80 mg by mouth daily.Active omeprazole (PRILOSEC) [address] take 40 mg by mouth daily. Before a mealActive ALPRAZolam 0.25 MG Tab tablet TAKE 1/2 TO 1 TABLET BY MOUTH EVERY 6 HOURS NEEDED FOR ANXIETY AND RESTLESS XGYJ731Active Active Problems ProblemNoted DateDiagnosed DateIntrinsic aging of facial skin08/24/2017[place] Family History Medical HistoryRelationNameCommentsColon CancerBrotherRelationNameStatusComments Brother Social History Tobacco UseTypesPacks/DayYears UsedDateSmoking Tobacco: Light SmokerCigarettes Smokeless Tobacco: NeverCommentsUnknownSex and Gender InformationValue Date RecordedSex Assigned at BirthNot on fileLegal AtiKgsuqe91/20/2017 3:03 PM EDTGender IvwvxfhyCafnzm65/20/2017 3:05 PM EDTSexual OrientationNot on file Last Filed Vital Signs Vital SignReadingTime TakenCommentsBlood Dqgufjwt934/8407 1:23 PM EDT Ygfmv8266 1:23 PM LLBCeztxfeigix02.1 ??C (96.9 ??F)09/26/2019 1:23 PM EDTRespiratory Vyjl948108/17/2016 9:47 AM EDTOxygen Saturation--Inhaled Oxygen Concentration--Oqmwjk86 kg (139 lb)09/26/2019 1:23 PM BYTVbvqtg656.3 cm (5' 9 ) 02/28/2019 10:40 AM ESTBody Mass Index20.5302/28/2019 10:40 AM EST Plan of Treatment Health MaintenanceDue DateLast DoneCommentsDEXA SCAN HONGLQNZIG96/04/1951 HEPATITIS C VIRUS PDANMNFQU75/04/7057WMQWBKG54/04/1949TDAP (ADULT)09/22/1967 CERVICAL CANCER SCREENING FTEVGGAVLC08/04/1970MAMMOGRAM SCREENING DISCUSSION 1988COLORECTAL CANCER SCREENING SZWYPAMXME03/04/1994LUNG CANCER SCREENING ACSPBQNZSF93/04/1999ZOSTER (SHINGLES) VACCINE (2 of 3) PNEUMOCOCCAL VACCINE SERIES (2 of 2 - PCV)RSV VACCINE (1 - 1-dose 75+ series)4COVID-19 VACCINE (1 - 2024- season)2024 INFLUENZA VACCINE (#1), 02/01/2018, 01/09/2018, Additional history existsHEP B VACCINEAged OutNo longer eligible based on patient's age to complete this topic Insurance on file Care Teams Team MemberRelationshipSpecialtyStart DateEnd Date Schuyler Desir DO PCP - GeneralInternal Ffbpfwdj58/31/17
--- NOTE | 2025-03-06 14:32 | XR_ITS ---
The [address] [address] Patient Name: ALBERTINA L[address] MRN: [id number] date: 1950 Sex: F Assigned Patient Location: [facility] Current Patient Location: [facility] Accession/Order Number: [id number] Exam Date: 03/06/2025 14:28 Report Date: 03/06/2025 16:08 At the request of: TORY BARLOW DO Procedure: XR chest 2V Two-view chest compared to prior examination 03/03/2023 HISTORY: Cough and congestion for one week Cardiac mediastinal silhouettes stable. Hilar abnormality. Remote granulomatous change. No acute lung findings. No pleural effusion or pneumothorax. Thoracic spondylosis. XR/XR chest 2V IMPRESSION: No acute findings. Impression dictated by: Humphrey Townsend M.D. 03/06/2025 4:08 PM Dictation Location: [place] [address] Electronically authenticated by: [id number] Y Date: 03/06/2025 16:08
== END 2025-03-06 14:10 | disposition home or self-care (01) ==
LOC: RAD 14:14
PROVIDERS: PCP Internal Medicine; Visit Provider Internal Medicine
DX: R05.9 Cough, unspecified (principal)
CPT/HCPCS: 71046